=== PATIENT | male | born 1935 | race Caucasian/White ===

== ENCOUNTER 2016-08-10 07:00 | Inpatient (IN) | payer MEDICARE, MEDICAID ==
[~2016-08-10] VITALS: Ht 154.9 cm; Wt 63.0 kg
[~2016-08-10 07:00] MED LIST: ALLO100T PO; AMLO-147 PO; ASPI81TA3 PO; CARV6.2579 PO; CLOP75TA27 PO; FOLI-49 PO; FURO40TA4 PO; LANT3I SC; LEVO88TA3 PO; LISI20TA11 PO; MELA5TAB4 PO; MTF1000T PO; POTA8CAP PO; SIMV40TA2 PO; TRAM-40 PO
[2016-08-10] MEDS ORDERED: ASPIRIN 325 MG TAB PO STA (07:14)
[2016-08-10 07:53] LABS: ALBUMIN 4.7 g/dl (3.3-4.9)
[2016-08-10 07:54] LABS: POTASSIUM 4.9 mmol/L (3.5-5.1)
[2016-08-10 07:56] LABS: BILIRUBIN,INDIRECT 0.5 mg/dl (0-1.1); BILIRUBIN,TOTAL 0.5 mg/dl (0.2-1.3); CREATININE 1.14 mg/dl (0.61-1.24)
[2016-08-10 07:57] LABS: ALBUMIN/GLOBULIN RATIO 1.04; CALCIUM 9.6 mg/dl (8.4-10.2); TOTAL PROTEIN 9.2 g/dl (6.1-8.1)
[2016-08-10 08:00] LABS: BASOPHILS % 0.3 % (0.0-2.0); EOSINOPHILS # 0.1 10^3/ul (0.0-0.5); HEMATOCRIT 37.2 % (42.0-52.0); HEMOGLOBIN 12.5 g/dl (14.0-18.0); LYMPHOCYTES # 1.7 10^3/ul (0.8-2.9); LYMPHOCYTES % 14.9 % (15.0-51.0); MEAN CORPUSCULAR HEMOGLOBIN 27.3 pg (29.0-33.0); MEAN CORPUSCULAR HGB CONC 33.6 g/dl (32.0-37.0); MEAN CORPUSCULAR VOLUME 81.3 fl (82.0-101.0); MEAN PLATELET VOLUME 10.2 fl (7.4-10.4); MONOCYTE # 0.2 10^3/ul (0.3-0.9); MONOCYTES % 1.9 % (0.0-11.0); NEUTROPHIL # 9.2 10^3/ul (1.6-7.5); NEUTROPHILS % 81.9 % (39.0-77.0); PLATELET COUNT 235 10^3/UL (140-440); RED BLOOD COUNT 4.57 10^6/ul (4.70-6.10); RED CELL DISTRIBUTION WIDTH 18.4 % (11.5-14.5); UNCORRECTED WBC 11.3 10^3/ul (4.8-10.8); WHITE BLOOD COUNT 11.3 10^3/ul (4.8-10.8)
[2016-08-10 08:00] LABS: AADO2 Arterial 181.6 mmHg (7.0-24.0); Allen Test ACCEPTAB; Arterial Base Excess -3.5 mmol/L (-3.0-3); Arterial COHb 0 % (0.0-3.0); Arterial Fraction of Oxyhgb 91.2 % (93.0-99.0); Arterial HCO3 20.5 mmol/L (22.0-26.0); Arterial MetHb 0.5 % (0.0-1.5); Arterial Total Hemglobin 11.3 g/dl (12.0-18.0); Blood Gas IEPAP 15/5; Blood Gas PS 10; MODE MASK - BIPAP
[2016-08-10 08:02] LABS: CONDITION 1; LH ANALYZER COMMENTS 1
[2016-08-10 08:07] LABS: CK-MB 0.93 ng/ml (0.0-2.4)
[2016-08-10 08:09] LABS: TROPONIN-I 0.014 ng/ml (0.00-0.12)
[2016-08-10] MEDS ORDERED: FUROSEMIDE 40 MG INJ IV ONE (08:30)
--- NOTE | 2016-08-10 08:37 | RADRPT ---
PROCEDURE: CHEST 1VW CLINICAL INDICATION: Chest pain TECHNIQUE: Single frontal view of the chest was obtained COMPARISON: 05/27/2016 FINDINGS: The cardiac size is mildly enlarged, stable. Aortic vascular calcifications are demonstrated. There is mild pulmonary vascular congestion. Mild right basilar opacities again demonstrated, possibly atelectasis or aspiration. Mild degenerative changes of the visualized osseous structures are visualized. IMPRESSION: 1. Mild right basilar opacities again demonstrated, possibly atelectasis or aspiration. 2. Atherosclerosis. RPTAT:PP .Monroe Cheng MD, Date Time Electronically viewed and signed by .Monroe Cheng MD, on 08/10/2016 08:37 .V/
--- NOTE | 2016-08-10 08:52 | ERA ---
ER Documentation Chief Complaint Date/Time DATE: 08/10/16 TIME: 08:47 Chief Complaint sudden onset sob since this morning withmild cp and cough and congestion HPI 81-year-old male who presents to the emergency room complaining of shortness of breath. The patient describes shortness of breath and mild chest pressure that started this morning. The patient has a severe aortic stenosis. The patient is being scheduled for percutaneous valve replacement. The patient describes shortness of breath, PND, orthopnea. He denies any current chest pressure. No significant lower extremity swelling. He states compliance with his medications. ROS All systems reviewed and are negative except as per history of present illness. Medications Home Meds Active Scripts Carvedilol* (Carvedilol*) 6.25 Mg Tablet, 6.25 MG PO BID, #90 TAB 1 Refill Prov:DEIRDRE BERNARD 05/30/16 Furosemide* (Furosemide*) 40 Mg Tablet, 40 MG PO BID DIURETICS, #90 TAB 1 Refill Prov:DEIRDRE BERNARD 05/30/16 Insulin Glargine* (Lantus*) 100 Unit/Ml Soln, 10 UNIT SC QPM, #1 Prov:DEVYN FELIPE MD 05/17/16 Reported Medications Amlodipine Besylate* (Amlodipine Besylate*) 10 Mg Tablet, 10 MG PO DAILY, #30 TAB 05/27/16 Melatonin (Melatonin) 5 Mg Tablet, 5 MG PO HS, TAB 05/27/16 Folic Acid* (Folic Acid*) 1 Mg Tablet, 1 MG PO DAILY, TAB 05/27/16 Simvastatin* (Zocor*) 40 Mg Tablet, 40 MG PO QHS, #30 TAB 05/27/16 Aspirin* (Aspirin* Chew) 81 Mg Tab.chew, 81 MG PO DAILY, TAB.CHEW 05/27/16 Metformin* (Glucophage*) 1,000 Mg Tablet, 1000 MG PO BID, #60 TAB 05/06/16 Allopurinol* (Allopurinol*) 100 Mg Tablet, 100 MG PO DAILY, TAB 05/06/16 Lisinopril* (Lisinopril*) 20 Mg Tablet, 20 MG PO DAILY, #30 TAB 05/06/16 Clopidogrel Bisulfate (Clopidogrel) 75 Mg Tablet, 75 MG PO DAILY, #30 TAB 05/06/16 Potassium Chloride* (Potassium Chloride*) 8 Meq Capsule.er, 8 MEQ PO DAILY, CAP 05/06/16 Tramadol Hcl* (Ultram*) 50 Mg Tablet, 50 MG PO Q12 Y for PAIN, TAB 05/06/16 Levothyroxine Sodium* (Levothyroxine Sodium*) 88 Mcg Tablet, 88 MCG PO BEFORE BREAKFAST, #30 TAB 05/06/16 Allergies Allergies: Coded Allergies: No Known Allergies (Verified Allergy, Unknown, 08/10/16) PMhx/Soc History of Surgery: Yes (Appendectomy 195, Angio plastydone with Dr Flores) Anesthesia Reaction: No Hx Neurological Disorder: No Hx Respiratory Disorders: No Hx Cardiac Disorders: Yes (HTN, CHF,dm) Hx Psychiatric Problems: No Hx Miscellaneous Medical Probl: No Hx Alcohol Use: No Hx Substance Use: No Hx Tobacco Use: No Smoking Status: Never smoker FmHx Family History: No diabetes Physical Exam Vitals Vital Signs Date Time Temp Pulse Resp B/P Pulse Ox O2 Delivery O2 Flow Rate FiO2 08/10/16 09:39 78 97 50 08/10/16 09:04 74 18 133/69 99 Room Air BIPAP 08/10/16 07:43 106 96 30 08/10/16 07:34 82 20 141/72 94 Room Air 08/10/16 07:03 98.1 97 28 156/74 88 Physical Exam General: Mild respiratory distress Head: Normocephalic, atraumatic. Eyes: Pupils equally reactive, EOM intact ENT: Moist mucous membranes Neck: Supple, no lymphadenopathy Respiratory: Rales at the bases bilaterally and diffusely, increased work of breathing, talking in shortened sentences Cardiovascular: RRR, no murmurs, rubs, or gallops Abdominal: Soft, non-tender, non-distended, no peritoneal signs : Deferred MSK: No edema, no unilateral swelling, 5/5 strength Neurologic: Alert and oriented, moving all extremities, normal speech, no focal weakness, no cerebellar signs Skin: No rash Psych: Normal mood Result Diagram: 08/10/16 0720 08/10/16 0720 Results 24 hrs Laboratory Tests Test 08/10/16 07:14 08/10/16 07:20 Arterial Blood HCO3 20.5mmol/L Arterial Blood Base Excess -3.5mmol/L Arterial Blood Oxygen Saturation 91.7mmHG Conrad Test ACCEPTAB Arterial Blood Gas Puncture Site Right Radial Arterial Blood Carboxyhemoglobin 0% Arterial Blood Date Drawn 08/10/2016 7:45:34 AM Arterial Blood Methemoglobin 0.5% Arterial Blood pCO2 (Temp correct) 33.7mmhg Arterial Blood pH (Temp corrected) 7.403 Arterial Blood pO2 (Temp corrected) 64.8mmHG Blood Gas A-a O2 Differential 181.6mmHg Blood Gas Actual Respiration Rate 32 Blood Gas IPAP/EPAP Ratio 15/5 Blood Gas Modality MASK - BIPAP Blood Gas Notified Time 08/10/2016 8:00:14 AM Blood Gas Notified Whom RT Blood Gas Pressure Support 10 Blood Gas Respiration Rate 16.0 Blood Gas Specimen Source Blood arterial Blood Gas Temperature 37.0C FiO2 40.0% Oxyhemoglobin Percent 91.2% Total Hemoglobin 11.3g/dl Alanine Aminotransferase (ALT/SGPT) 24IU/L Albumin 4.7g/dl Albumin/Globulin Ratio 1.04 Alkaline Phosphatase 85IU/L Anion Gap 23 Aspartate Amino Transf (AST/SGOT) 51IU/L B-Type Natriuretic Peptide 3070PG/ML Basophils # 0.010^3/ul Basophils % 0.3% Blood Morphology Comment Blood Urea Nitrogen 20mg/dl Calcium Level 9.6mg/dl Carbon Dioxide Level 22mmol/L Chloride Level 107mmol/L Creatine Kinase 53IU/L Creatine Kinase Index 1.8 Creatinine 1.14mg/dl Creatinine Kinase MB (Mass) 0.93ng/ml Direct Bilirubin 0.00mg/dl Eosinophils # 0.110^3/ul Eosinophils % 1.0% Globulin 4.50g/dl Glucose Level 168mg/dl Hematocrit 37.2% Hemoglobin 12.5g/dl Indirect Bilirubin 0.5mg/dl Lymphocytes # 1.710^3/ul Lymphocytes % 14.9% Mean Corpuscular Hemoglobin 27.3pg Mean Corpuscular Hemoglobin Concent 33.6g/dl Mean Corpuscular Volume 81.3fl Mean Platelet Volume 10.2fl Monocytes # 0.210^3/ul Monocytes % 1.9% Neutrophils # 9.210^3/ul Neutrophils % 81.9% Nucleated Red Blood Cells # 0.010^3/ul Nucleated Red Blood Cells % 0.0/100WBC Platelet Count 93760^3/UL Potassium Level 4.9mmol/L Red Blood Count 4.5710^6/ul Red Cell Distribution Width 18.4% Sodium Level 147mmol/L Total Bilirubin 0.5mg/dl Total Protein 9.2g/dl Troponin I 0.014ng/ml White Blood Count 11.310^3/ul Current Medications Medications (Trade) Dose Ordered Sig/Leanna Route PRN Reason Start Time Stop Time Status Last Admin Dose Admin Aspirin (Aspirin) 325 mg ONCE STAT PO 08/10/16 07:14 08/10/16 07:18 DC 08/10/16 09:00 Furosemide (Lasix) 40 mg ONCE ONCE IV 08/10/16 08:30 08/10/16 08:31 DC 08/10/16 09:00 Ondansetron HCl (Zofran Inj) 4 mg ER BRIDGE PRN IV NAUSEA AND/OR VOMITING 08/10/16 10:30 08/11/16 10:29 Acetaminophen (Tylenol Tab) 650 mg ER BRIDGE PRN PO MILD PAIN/FEVER 08/10/16 10:30 08/11/16 10:29 Procedures/MDM EKG, MONITORS, & DIAGNOSTIC IMAGING: EKG: I reviewed and interpreted a 12-lead EKG. Rhythm: Normal sinus rhythm Ectopy: None Intervals: No abnormalities ST segments: No elevations or depressions T waves: No contiguous inversions Chest x-ray: I reviewed and interpreted a 1 view of the chest Mediastinum: No enlargement Cardiac silhouette: cardiomegaly Airspace: Interstitial process bilaterally right greater than left with evidence of right-sided pleural effusion, pulmonary edema. Bones: No evidence of fracture LAB INTERPRETATION: Negative troponin, elevated BNP MEDICAL DECISION MAKING: The patient presents with clear signs and symptoms consistent with decompensated congestive heart failure. The patient has a history of severe left ear. He has no fevers or chills, no significant cough that would suggest pneumonia or aspiration event. The patient did have chest pain will benefit from evaluation and rule out of acute coronary syndrome. The patient has evidence of respiratory distress and increased work of breathing. I believe he would benefit from positive pressure ventilation. Given the patient's severe aortic stenosis I would like to avoid nitroglycerin given that the patient's blood pressure is somewhat stable at 140. Gentle Lasix will be provided. The patient is likely very preload dependent given his severe aortic stenosis. ER COURSE: The patient was started on positive pressure ventilation. In concordance with Dr. Flores consultation the patient was given Lasix. He did not require nitroglycerin. The patient was given aspirin. The patient seems to have stabilized on positive pressure ventilation. The patient will require ICU level of care until he can be weaned from BiPAP. I kept the patient and/or family informed of laboratory and diagnostic imaging results throughout the emergency room course. DISPOSITION PLAN: Intensive care unit management for acute respiratory failure secondary to CHF CONSULTATION: Accepting care team and consultations: I discussed the current laboratory data, diagnostic imaging and emergency care provided. Admitting team: Dr. 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 Flores was notified Prior to transfer to the floor the patient has discontinued positive pressure ventilation. He is resting comfortably and improved. Departure Diagnosis: Primary Impression: Acute respiratory failure Qualified Code: J96.00 - Acute respiratory failure, unspecified whether with hypoxia or hypercapnia Additional Impressions: Acute exacerbation of CHF (congestive heart failure) Qualified Code: I50.23 - Acute on chronic systolic congestive heart failure Severe aortic stenosis Condition: DEXTER Harding MD Aug 10, 2016 08:52
[2016-08-10] MEDS ORDERED: ONDANSETRON 4 MG INJ IV PRN (10:30)
[2016-08-10] MEDS ORDERED: ACETAMINOPHEN 325 MG TAB PO PRN (10:30)
[2016-08-10] MEDS ORDERED: DOCUSATE SODIUM 100 MG CAP PO PRN (12:30)
[2016-08-10] MEDS ORDERED: ONDANSETRON 4 MG TAB PO PRN (12:30)
[2016-08-10] MEDS ORDERED: NITROGLYCERIN (SL) 0.4 MG TAB SL PRN (12:30)
[2016-08-10] MEDS ORDERED: LORAZEPAM 0.5 MG TAB PO PRN (12:30)
[2016-08-10] MEDS ORDERED: NACL 0.9% 3 ML SYG IV SCH (12:30)
[2016-08-10 12:55] LABS: INR 1.03; PARTIAL THROMBOPLASTIN TIME 27.6 Sec (25.0-35.0); PROTIME 13.5 Sec (12.2-14.2); PT RATIO 1.1
[2016-08-10] MEDS ORDERED: GLUCAGON 1 MG INJ IM PRN (13:00)
[2016-08-10] MEDS ORDERED: DEXTROSE 50% 50 ML SYRINGE IV PRN ×2 (13:00)
[2016-08-10] MEDS ORDERED: GLUCOSE GEL 15 GRAM TUBE BUCCAL PRN (13:00)
[2016-08-10] MEDS ORDERED: GLUCOSE GEL 15 GRAM TUBE PO PRN ×2 (13:00)
[2016-08-10 15:55] VITALS: TEMP 97.7
[2016-08-10 16:57] VITALS: Ht 154.9 cm; Wt 63.0 kg
[2016-08-10 16:59] VITALS: PULSE 81
[2016-08-10 17:01] VITALS: BP 150/77; PULSE 86; RESP 18
--- NOTE | 2016-08-10 17:15 | CONS ---
DATE OF ADMISSION: 08/10/2016 DATE OF CONSULTATION: 08/10/2016 TYPE OF CONSULTATION: Cardiology. REASON FOR CONSULTATION: Congestive heart failure exacerbation. REQUESTING PHYSICIAN: Dr. Felipe from the hospitalist service. HISTORY OF PRESENT ILLNESS: Mr. Adams is an 81-year-old male well known to myself, a primary offi ce patient from prior hospital admissions with history of congestive heart failure, systolic with la st known ejection fraction approximately 35% by echo in April 2016. Severe aortic stenosis by ec ho and by the catheter gradient April 2016. Status post PTCA and stent placement, most recently to LAD, left main April 2016, diabetes mellitus and prior non-ST myocardial infarction, who prese nts with complaints of worsening shortness of breath. Upon arrival in the emergency department, tem perature of 98.1, blood pressure 156/74, pulse 97, respiratory 20, saturating 80%. The patient's la bs revealed white count 11.3, hemoglobin 12.5, platelet count 235. Sodium 147, potassium 4.9, creat inine of 1.1, BUN of 20. Troponin negative. BNP of 3070, AST 51, ALT 24. INR of 1.0. ABG reveali ng a pH of 7.4, PaO2 of 64, pCO2 of 33.7. Patient's chest x-ray revealed mild right basilar opacit ies, mild pulmonary vascular congestion. The patient subsequently has been treated with Lasix 40 mg IV x1, aspirin 325 mg and now awaits admit to the hospital. At this time, patient complaining of s hortness of breath. Denies chest pain. PAST MEDICAL HISTORY: As above in HPI. MEDICATIONS CURRENTLY IN HOSPITAL: 1. ____ 2. ____ 10 mg b.i.d. 3. Aspirin 81 mg daily. 4. Plavix 75 mg daily. 5. Folic acid 1 mg daily. 6. ____ 20 mg daily. 7. Lovenox 20 mg subcutaneous daily. 8. Synthroid 88 mcg daily. 9. Carvedilol 6.25 mg p.o. b.i.d. 10. Lantus 10 units subcu at bedtime. 11. Metformin 1000 mg b.i.d. 12. Lasix 20 mg IV b.i.d. 13. Ativan p.r.n. 14. Zofran p.r.n. 15. Sublingual nitroglycerin p.r.n. 16. Tylenol. ALLERGIES: NO KNOWN DRUG ALLERGIES. MEDICATIONS PRIOR TO ADMIT: 1. Norvasc 10 mg daily. 2. Carvedilol 6.25 mg daily. 3. ____ 4. Simvastatin 40 mg daily. 5. Aspirin 80 mg daily. 6. Tramadol. 7. Lasix 40 mg p.o. b.i.d. 8. Potassium chloride 8 mEq daily. 9. Insulin. 10. Synthroid 88 mcg. 11. Metformin 1000 mg b.i.d. 12. Folic acid 1 mg daily. 13. Allopurinol. 14. Melatonin 5 mg at bedtime. ALLERGIES: NO KNOWN DRUG ALLERGIES. SOCIAL HISTORY: No tobacco, ETOH or illicit drug use. FAMILY HISTORY: No history of sudden cardiac or early CAD. REVIEW OF SYSTEMS: As above in HPI. CONSTITUTIONAL: No fevers, chills. PULMONARY: Positive shortness breath. CARDIOVASCULAR: Congestive heart failure. GASTROINTESTINAL: No vomiting. GENITOURINARY: No hematuria. MUSCULOSKELETAL: Degenerative joint disease. PSYCHIATRIC: The patient denies depression. NEUROLOGICAL: No documented history of CVA. PHYSICAL EXAMINATION VITAL SIGNS: Temperature 97.8, blood pressure 126/65, pulse 82, respirations 16, saturating 99%. GENERAL: The patient is alert, awake, complaining of shortness of breath. NECK: JVP approximately 10 cm of water. CHEST: Bibasilar crackles. HEART: Regular rate and rhythm, normal S1, S2. Laterally displaced PMI. 2/6 crescendo decrescendo murmur radiating to carotids consistent with aortic stenosis. ABDOMEN: Positive bowel sounds, soft. EXTREMITIES: 1+ edema bilaterally, 1+ pulses bilaterally, posterior tibial. LABORATORY DATA: As above in HPI. No further labs for my review at this time. IMAGING STUDIES: As above in HPI. No further imaging studies for my review at this time. IMPRESSION: 1. Congestive heart failure exacerbation, systolic, acute on chronic, with most recent echo 2015 revealing EF of 35%, severe aortic stenosis, aortic valve area of 0.7, mean gradient of 41. 2. Hypertension. 3. Abnormal electrocardiogram, assess for acute coronary syndrome. 4. History of a percutaneous transluminal coronary angioplasty and stent placement, most recently t o left main drug-eluting stent April 2016. 5. Dyslipidemia. 6. Diabetes mellitus. 7. Hypernatremia 8. Increased BNP consistent with patient's congestive heart failure exacerbation. 9. Anemia, mild 10. Leukocytosis. RECOMMENDATIONS: 1. At this time, would admit patient to telemetry monitoring to follow rhythm and rate control clos aria. 2. Would continue to trend the patient's cardiac enzymes to rule out for myocardial infarction. 3. Continue the patient's current antihypertensives with Coreg, Zestril and Norvasc following blood pressure and heart rate closely. 4. Give patient sublingual nitroglycerin for any episodes of chest pain. 5. Continue the patient's Lasix diuresis. We will change to 40 IV b.i.d., as the patient's baselin e is 40 p.o. b.i.d. to be sure to stimulate good urine output and follow creatinine closely. 6. Continue to check serial EKGs to assess for any significant ongoing changes. EKG in the morning , EKG for any complaints of chest pain or change in rhythm. 7. Check a fasting lipid panel for general risk stratification. Thank you for allowing me to take part in the care of this patient. I will continue to follow along very closely with you with further recommendations to be made as the patient progresses through his inpatient hospital clinical course. Dictated By: ELEANOR ABREU/ELIZABETH Conf#: [id number] DID#: [id number] CC: DEVYN FELIPE MD;*EndCC*
[2016-08-10] MEDS: INSULIN ASPART [NOVOLOG] 3 ML PEN SC SCH ×2 (17:55→20:30)
[2016-08-10] MEDS: FUROSEMIDE 20 MG INJ IV SCH (18:00)
[2016-08-10] MEDS ORDERED: FUROSEMIDE 20 MG INJ IV SCH (18:00)
[2016-08-10] MEDS: CEFTRIAXONE 1 GM/50 ML (PMX) 50 ML IVPB SCH (18:01)
--- NOTE | 2016-08-10 18:01 | HP ---
DATE OF ADMISSION: 08/10/2016 REASON FOR ADMISSION: Shortness of breath. HISTORY OF PRESENT ILLNESS: This is a very pleasant 81-year-old gentleman who is known to me from h is prior admission with a past medical history of ID, multiple vessel obstructive coronary artery di sease 100% occluded thrombus, high-grade lesion in the small posterior descending artery, status pos t PCI, recent pneumonia, essential hypertension, dyslipidemia, diabetes mellitus, gout, small irregu lar nodule in the right upper lobe centrally measuring 0.9 x 0.5 cm, severe left ventricle systolic dysfunction, ejection fraction at 35%, severe aortic stenosis, who is scheduled for intervention at [facility] on 08/18/2016, renal insufficiency, who presents to [facility] secondary to h aving 2 days of shortness of breath and difficulty ambulating secondary to shortness of breath. The patient is also having mild chest pressure which started this morning. As stated above, he has a h istory of severe aortic stenosis and has been seen and evaluated by Cardiology as outpatient and he has been scheduled for percutaneous valve replacement at [facility] 08/18/2016. He also complains of havi ng shortness of breath, paroxysmal nocturnal dyspnea, orthopnea. At this time he denies having any lower extremity edema or any other discomfort. He denies any fever, chills, weight gain, weight los s, anorexia. No chest pain, palpitations, orthopnea. No change in visual acuity, diplopia, photoph obia. No abdominal pain, no nausea, vomiting. No dysuria, hematuria, urgency, incontinence or any other discomfort except what was stated above. PAST MEDICAL AND SURGICAL HISTORY: As above per HPI. MEDICATIONS: 1. Allopurinol. 2. Amlodipine. 3. Aspirin. 4. Coreg. 5. Plavix. 6. Folic acid. 7. Lasix. 8. Lantus. 9. Levothyroxine. 10. Lisinopril. 11. Melatonin. 12. Metformin. 13. Potassium chloride. 14. Simvastatin 15. Tramadol. ALLERGIES: NO KNOWN DRUG ALLERGIES. SOCIAL HISTORY: Positive for history of smoking, no alcohol, no illicit drugs. FAMILY HISTORY: Noncontributory secondary to advanced age. REVIEW OF SYSTEMS: As above per HPI, otherwise 12 review of systems has been found to be negative. PHYSICAL EXAMINATION: VITAL SIGNS: Temperature 97.7, pulse 87, respirations 17, blood pressure 126/65, oxygen saturation 99% on 2 liters via nasal cannula. GENERAL APPEARANCE: The patient is lying in bed comfortably without any acute distress. He is awak e, alert, oriented. He is able to answer my questions properly. EYES AND ENT: Conjunctivae and lids are normal. Pupils are normal. Extraocular normal. Hearing g rossly normal. Lips are normal. Oral mucosa mildly dry. NECK: Supple. Trachea is midline. No lymphadenopathy. RESPIRATORY: Effort is normal. Clear to auscultation bilaterally. RESPIRATORY: Effort is normal. Decreased breath sounds bilateral lower lung choudhary with positive r ales bilateral lower lung choudhary. CARDIOVASCULAR: Normal S1, S2. Regular rhythm and rate. Positive systolic murmur at the apex, tra ce edema bilateral lower extremities. NEUROLOGIC: Cranial nerves II through XII are grossly intact. CHEST: Normal expansion of thorax during inspiration. GASTROINTESTINAL: Abdomen is soft, nontender, not distended. Bowel sounds present. No guarding, n o rebound. GENITOURINARY: Deferred. MUSCULOSKELETAL: Upper and lower extremities within normal limits with trace edema bilateral lower extremities. NEUROLOGICAL: Cranial nerves II through XII are grossly intact. PSYCHIATRIC: Normal judgment and insight. Alert and oriented x3. Mood and affect is normal. LABORATORY WORK AND IMAGING: WBC 11.3, hemoglobin 12.5, hematocrit 37.2, MCV 81.3, platelet 235. S odium 147, potassium 4.9, chloride 107, bicarbonate 22, BUN 20, creatinine 1.14, glucose 168. LFTs all within normal limits. Troponin 0.014. BNP 3070. ASSESSMENT AND PLAN: 1. Acute respiratory distress. This is likely secondary to congestive heart failure and severe aor tic stenosis. Cardiology has been consulted. Patient will be placed on diuretics. 2. Congestive heart failure exacerbation. Last echocardiogram with ejection fraction 25%. Continu e lisinopril and Lasix. 3. Essential hypertension, well controlled on Coreg, Lasix and lisinopril. 4. Hypothyroidism. Continue levothyroxine. 5. Diabetes mellitus. Continue Lantus insulin sliding scale and metformin. 6. Dyslipidemia. Continue Zocor. 7. History of myocardial infarction/coronary artery disease. Continue aggressive medical managemen t. 8. For deep venous thrombosis prophylaxis, the patient is on Plavix and aspirin. 9. Questionable pneumonia, we will place the patient on prophylaxis, Rocephin. We will continue to monitor patient closely. Further recommendations, management and treatment as per clinical course. Total amount of time was spent for evaluation of patient and admission workup 40 minutes. Dictated By: DEVYN OBANDO/NTS Conf#: [id number] DID#: [id number]
[2016-08-10] MEDS: metFORMIN 500 MG TAB PO SCH (18:02)
[2016-08-10] MEDS: FUROSEMIDE 40 MG TAB PO SCH (18:02)
[2016-08-10 18:10] LABS: CREATINE KINASE 27 IU/L (23-200)
[2016-08-10 18:18] LABS: CK-MB 0.68 ng/ml (0.0-2.4)
[2016-08-10 18:28] LABS: TROPONIN-I < 0.012 ng/ml (0.00-0.12)
[2016-08-10 20:00] VITALS: BP 139/64; RESP 18
[2016-08-10 20:07] VITALS: PULSE 88
[2016-08-10] MEDS: ATORVASTATIN 20 MG TAB PO SCH (20:26)
[2016-08-10] MEDS ORDERED: NON-FORMULARY/PATIENT OWN MED (Melatonin 5 MG) PO SCH (21:00)
[2016-08-10] MEDS: INSULIN GLARGINE [LANtus] 3 ML PEN SC SCH (22:18)
[2016-08-11] VITALS (11 sets, daily range): BP systolic 125–144; BP diastolic 60–77; PULSE 73–80; RESP 17–18
[2016-08-11 00:36] LABS: CREATINE KINASE 26 IU/L (23-200)
[2016-08-11 00:51] LABS: CK-MB 0.56 ng/ml (0.0-2.4)
[2016-08-11 01:05] LABS: TROPONIN-I < 0.012 ng/ml (0.00-0.12)
[2016-08-11] MEDS: FUROSEMIDE 40 MG TAB PO SCH ×2 (06:00→18:00)
[2016-08-11] MEDS: LEVOTHYROXINE 88 MCG TAB PO SCH (06:13)
[2016-08-11] MEDS: FUROSEMIDE 20 MG INJ IV SCH ×2 (06:13→17:34)
[2016-08-11 07:44] LABS: CREATINE KINASE 28 IU/L (23-200)
[2016-08-11 07:54] LABS: TROPONIN-I < 0.012 ng/ml (0.00-0.12)
[2016-08-11] MEDS: INSULIN ASPART [NOVOLOG] 3 ML PEN SC SCH ×4 (07:55→20:32)
[2016-08-11 07:57] LABS: CK-MB 0.65 ng/ml (0.0-2.4)
[2016-08-11 08:04] LABS: POTASSIUM 3.4 mmol/L (3.5-5.1)
[2016-08-11 08:07] LABS: CREATININE 1.17 mg/dl (0.61-1.24)
[2016-08-11 08:08] LABS: CALCIUM 9.3 mg/dl (8.4-10.2); MAGNESIUM 1.8 mg/dl (1.7-2.5)
[2016-08-11] MEDS: FOLIC ACID 1 MG TAB PO SCH (08:20)
[2016-08-11] MEDS: AMLODIPINE 10 MG TAB PO SCH (08:20)
[2016-08-11] MEDS: ASPIRIN 81 MG TAB PO SCH (08:20)
[2016-08-11] MEDS: ALLOPURINOL 100 MG TAB PO SCH (08:21)
[2016-08-11] MEDS: LISINOPRIL 20 MG TAB PO SCH (08:21)
[2016-08-11] MEDS: CLOPIDOGREL 75 MG TAB PO SCH (08:21)
[2016-08-11] MEDS: ENOXAPARIN 40 MG/0.4 ML SYG SC SCH (08:22)
[2016-08-11] MEDS: metFORMIN 500 MG TAB PO SCH ×2 (08:24→17:20)
[2016-08-11 08:48] LABS: BASOPHILS % 0.3 % (0.0-2.0); EOSINOPHILS # 0.1 10^3/ul (0.0-0.5); EOSINOPHILS % 1.3 % (0.0-7.0); HEMATOCRIT 31.1 % (42.0-52.0); HEMOGLOBIN 10.2 g/dl (14.0-18.0); LYMPHOCYTES % 40.6 % (15.0-51.0); MEAN CORPUSCULAR HEMOGLOBIN 26.6 pg (29.0-33.0); MEAN CORPUSCULAR VOLUME 80.8 fl (82.0-101.0); MEAN PLATELET VOLUME 10.1 fl (7.4-10.4); MONOCYTE # 0.4 10^3/ul (0.3-0.9); MONOCYTES % 7.9 % (0.0-11.0); NEUTROPHIL # 2.4 10^3/ul (1.6-7.5); NEUTROPHILS % 49.9 % (39.0-77.0); PLATELET COUNT 159 10^3/UL (140-440); RED BLOOD COUNT 3.85 10^6/ul (4.70-6.10); RED CELL DISTRIBUTION WIDTH 18.8 % (11.5-14.5); UNCORRECTED WBC 4.9 10^3/ul (4.8-10.8); WHITE BLOOD COUNT 4.9 10^3/ul (4.8-10.8)
[2016-08-11 08:57] LABS: CONDITION 1; LH ANALYZER COMMENTS 1
--- NOTE | 2016-08-11 12:07 | PDOCDIS ---
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
[2016-08-11] MEDS: POTASSIUM CHLORIDE (SR) 20 MEQ TAB PO SCH (12:32)
--- NOTE | 2016-08-11 13:45 | CONS ---
Date/Time of Note Date/Time of Note DATE: 08/11/16 TIME: 13:41 Assessment/Plan Assessment/Plan Chief Complaint/Hosp Course IMPRESSION: 1. Congestive heart failure exacerbation, systolic, acute on chronic, with most recent echo April 2016 revealing EF of 35%, severe aortic stenosis, aortic valve area of 0.7, mean gradient of 41.-improving 2. Hypertension. 3. Abnormal electrocardiogram, assess for acute coronary syndrome.-negative troponin x 3 4. History of a percutaneous transluminal coronary angioplasty and stent placement, most recently to left main drug-eluting stent April 2016. 5. Dyslipidemia. 6. Diabetes mellitus. 7. Hypernatremia 8. Increased BNP consistent with patient's congestive heart failure exacerbation. 9. Anemia, mild 10. Leukocytosis. Recc: -Tele -serial ecg's -Continue asa/plavix -Contiue norvasc/coreg/zestril -Contiue lasix diuresis and follow volume status closely Problems: Consultation Date/Type/Reason Admit Date/Time Aug 10, 2016 at 10:13 Initial Consult Date 08/10/2016 Type of Consultation: cardiology Reason for Consultation CHF Referring Provider: DEVYN FELIPE MD Exam/Review of Systems Vital Signs Vitals Vital Signs Date Time Temp Pulse Resp B/P Pulse Ox O2 Delivery O2 Flow Rate FiO2 08/11/16 12:30 98.0 18 140/77 98 08/11/16 12:27 Room Air 08/11/16 12:13 73 08/10/16 20:25 3.0 08/10/16 09:39 50 Intake and Output 08/10/16 08/10/16 08/11/16 15:00 23:00 07:00 Intake Total 250 ml Output Total 600 ml 1650 ml Balance -600 ml -1400 ml Exam Review of Systems: CONSTITUTIONAL: No fevers, chills. PULMONARY: No sob CARDIOVASCULAR: No chest pain/palpitations GASTROINTESTINAL: No nausea/vomiting. GENITOURINARY: No hematuria/dysuria. MUSCULOSKELETAL: No myagias/arthalgias. PSYCHIATRIC: The patient denies depression. NEUROLOGIC: No weakness Constitutional: alert, oriented Psych: no complaints Head: normocephalic ENMT: mucosa pink and moist Neck: jvd (9 cm water), supple Respiratory: diminished breath sounds (at bases/B) Cardiovascular: regular rate and rhythm Gastrointestinal: non-tender, soft Musculoskeletal: muscle tone (normal) Extremities: edema (none) Neurological: other (No focal deficits) Results Result Diagram: 08/11/16 0710 08/11/16 0710 Results 24 hrs Laboratory Tests Test 08/10/16 17:19 08/10/16 17:20 08/10/16 20:29 08/10/16 23:28 Bedside Glucose 170 124 Creatine Kinase 27 26 Creatine Kinase Index 2.5 2.2 Creatinine Kinase MB (Mass) 0.68 0.56 Troponin I < 0.012 < 0.012 Test 08/11/16 07:10 08/11/16 07:45 08/11/16 11:42 Anion Gap 16 # Basophils # 0.0 Basophils % 0.3 Blood Morphology Comment Blood Urea Nitrogen 17 Calcium Level 9.3 Carbon Dioxide Level 26 Chloride Level 106 Cholesterol Level 150 Cholesterol/HDL Ratio 3.0 Creatine Kinase 28 Creatine Kinase Index 2.3 Creatinine 1.17 Creatinine Kinase MB (Mass) 0.65 Eosinophils # 0.1 Eosinophils % 1.3 Glucose Level 136 HDL Cholesterol 49 Hematocrit 31.1 L Hemoglobin 10.2 L LDL Cholesterol, Calculated 82 Lymphocytes # 2.0 Lymphocytes % 40.6 Magnesium Level 1.8 Mean Corpuscular Hemoglobin 26.6 L Mean Corpuscular Hemoglobin Concent 33.0 Mean Corpuscular Volume 80.8 L Mean Platelet Volume 10.1 Monocytes # 0.4 Monocytes % 7.9 Neutrophils # 2.4 Neutrophils % 49.9 Nucleated Red Blood Cells # 0.0 Nucleated Red Blood Cells % 0.0 Platelet Count 159 # Potassium Level 3.4 L Red Blood Count 3.85 L Red Cell Distribution Width 18.8 H Sodium Level 145 H Triglycerides Level 94 Troponin I < 0.012 White Blood Count 4.9 # Bedside Glucose 138 117 Medications Medications Current Medications Allopurinol (Zyloprim) 100 mg DAILY PO Last administered on 08/11/16 08:21; Admin Dose 100 MG; Start 08/11/16 at 09:00 Amlodipine Besylate (Norvasc) 10 mg DAILY PO Last administered on 08/11/16 08: 20; Admin Dose 10 MG; Start 08/11/16 at 09:00 Aspirin (Aspirin) 81 mg DAILY PO Last administered on 08/11/16 08:20; Admin Dose 81 MG; Start 08/11/16 at 09:00 Carvedilol (Coreg) 6.25 mg BID PO Last administered on 08/11/16 08:21; Admin Dose 6.25 MG; Start 08/10/16 at 21:00 Clopidogrel Bisulfate (plaVIX) 75 mg DAILY PO Last administered on 08/11/16 08 :21; Admin Dose 75 MG; Start 08/11/16 at 09:00 Folic Acid (Folic Acid) 1 mg DAILY PO Last administered on 08/11/16 08:20; Admin Dose 1 MG; Start 08/11/16 at 09:00 Insulin Glargine (Lantus) 10 unit QPM SC ; Start 08/10/16 at 21:00 Lisinopril (Zestril) 20 mg DAILY PO Last administered on 08/11/16 08:21; Admin Dose 20 MG; Start 08/11/16 at 09:00 Atorvastatin Calcium (Lipitor) 20 mg DAILY@21 PO Last administered on 20:26; Admin Dose 20 MG; Start 08/10/16 at 21:00 Lorazepam (Ativan) 0.5 mg Q8H PRN PO ANXIETY; Start 08/10/16 at 12:30 Ondansetron HCl (Zofran Tab) 4 mg Q6H PRN PO NAUSEA AND/OR VOMITING; Start at 12:30 Nitroglycerin (Nitroglycerin (Sl Tab) 0.4 Mg) 1 tab Q5M PRN SL CHEST PAIN; Start 08/10/16 at 12:30 Docusate Sodium (Colace) 100 mg Q12H PRN PO CONSTIPATION; Start 08/10/16 at 12: 30 Enoxaparin Sodium (Lovenox) 40 mg DAILY SC Last administered on 08/11/16 08:22 ; Admin Dose 40 MG; Start 08/11/16 at 09:00 Miscellaneous Information 1 ea NOTE XX ; Start 08/10/16 at 13:00 Glucose (Glutose) 15 gm Q15M PRN PO DECREASED GLUCOSE; Start 08/10/16 at 13:00 Glucose (Glutose) 22.5 gm Q15M PRN PO DECREASED GLUCOSE; Start 08/10/16 at 13: 00 Dextrose (D50w Syringe) 25 ml Q15M PRN IV DECREASED GLUCOSE; Start 08/10/16 at 13:00 Dextrose (D50w Syringe) 50 ml Q15M PRN IV DECREASED GLUCOSE; Start 08/10/16 at 13:00 Glucagon (Glucagen) 1 mg Q15M PRN IM DECREASED GLUCOSE; Start 08/10/16 at 13:00 Glucose 15 gm 15 gm Q15M PRN BUCCAL DECREASED GLUCOSE; Start 08/10/16 at 13:00 Ceftriaxone Sodium (Rocephin) 50 ml @ 100 mls/hr Q24H IVPB Last administered on 08/10/16 18:01; Admin Dose 100 MLS/HR; Start 08/10/16 at 17:00 Potassium Chloride (Klor-Con 20) 40 meq DAILY PO Last administered on 12:32; Admin Dose 40 MEQ; Start 08/11/16 at 12:00 ELEANOR ROLDAN Aug 11, 2016 13:45
--- NOTE | 2016-08-11 16:00 | RADRPT ---
Vent Rate: 71 bpm RR Interval: 0 msec FL Interval: 176 msec QRS Duration: 120 msec QT Interval: 416 msec QTC Interval: 452 msec P-R-T Stella: 55 - 52 - 144 degrees Sinus rhythm with occasional premature ventricular complexes Left ventricular hypertrophy with QRS widening and repolarization abnormality Abnormal ECG Electronically Signed By: Blake Patel [id number]
--- NOTE | 2016-08-11 16:20 | DS ---
DATE OF ADMISSION: 08/10/2016 DATE OF DISCHARGE: 08/11/2016 CONSULTANTS: Dr. Roldan, valuation consultant. DISCHARGE DIAGNOSES: 1. Acute respiratory distress likely secondary to congestive heart failure with severe aortic steno sis. Cardiology was consulted. The patient was placed on diuresis. The patient is set up to be fo llowed up with interventional radiology at [facility] for valvuloplasty. 2. Congestive heart failure exacerbation with the last echocardiogram showing ejection fraction of 25%. Continue lisinopril and Lasix. 3. Essential hypertension, well controlled on Coreg, Lasix and lisinopril. 4. Hypothyroidism. Continue levothyroxine. 5. Diabetes mellitus. Continue metformin and low-carbohydrate diet. 6. Dyslipidemia. Continue Zocor. 7. History of myocardial infarction and coronary artery disease. Continue aggressive medical manag ement. 8. Hypokalemia, repleted. MEDICATIONS: 1. Allopurinol. 2. Amlodipine 10 mg. 3. Aspirin 81 mg. 4. Coreg 6.25 mg. 5. Plavix 75 mg. 6. Folic acid 1 mg. 7. Lasix 40 mg b.i.d. 8. Lantus 10 units. 9. Levothyroxine 88 mcg. 10. Lisinopril 20 mg. 11. Melatonin 5 mg. 12. Metformin 1000 mg 13. Potassium chloride 8 mEq. 14. Simvastatin 40 mg. 15. Ultram 50 mg. ALLERGIES: NO KNOWN DRUG ALLERGIES. DISPOSITION: Home. DIET: Cardiac diet, restrict fluid to less than 1500 mL per day. HOSPITAL COURSE: This is a pleasant 81-year-old gentleman who was known to me from his prior hospit alization with a past medical history of myocardial infarction, multivessel obstructive coronary art hiral disease, high-grade lesion in the small posterior descending artery, status post PCI, recent pne umonia, essential hypertension, dyslipidemia, diabetes mellitus, gout, small irregular nodule in the right upper lobe currently measuring 0.9 x 0.5 cm, severe left ventricle systolic dysfunction, ejec tion fraction 35%, severe aortic stenosis, who was scheduled for valvular intervention at [facility] on . He presented to [facility] having 2 days of shortness of breath with in creased severity during ambulation. Upon arrival to the ER, the patient's chest x-ray showed mild r ight basilar infiltrate, again demonstrated possible atelectasis or aspiration atherosclerosis. Th e patient was placed on IV diuretics, was seen and evaluated by valuation consultant and his home medication was continued. Regarding his hypertension, his blood pressure is well controlled on medical manag ement via Coreg, lisinopril and Lasix for coronary artery disease, was continued on Plavix and stati n. Diabetes mellitus, he was placed on insulin sliding scale, low carb diet and Lantus. For hypertension, was continued on levothyroxine. For congestive heart failure, the patient was continued on lisinopril, Lasix and beta bijal. At t his time, the patient is asymptomatic without any chest pain or shortness of breath. His oxygen sat uration in room air is 97% at this time. At this time, patient is medically stable to be discharged home after evaluation by cardiology and clearance by cardiology to follow up with cardiology at [facility] for further intervention as outpatient. Dictated By: DEVYN FELIPE MD PN/NTS Conf#: [id number] DID#: [id number] CC: ELEANOR ROLDAN MD;*EndCC*
[2016-08-11] MEDS: CEFTRIAXONE 1 GM/50 ML (PMX) 50 ML IVPB SCH (17:20)
[2016-08-11] MEDS: ATORVASTATIN 20 MG TAB PO SCH (20:31)
[2016-08-11] MEDS: LATANOPROST 0.005% 2.5 ML OPH BOTH EYES SCH (20:32)
[2016-08-11] MEDS: INSULIN GLARGINE [LANtus] 3 ML PEN SC SCH (20:34)
[2016-08-12] VITALS (15 sets, daily range): BP systolic 129–148; BP diastolic 58–74; PULSE 42–80; RESP 15–18
[2016-08-12] MEDS ORDERED: LACTULOSE ENEMA 1,000 ML BTL PR ONE (03:00)
[2016-08-12] MEDS: FUROSEMIDE 40 MG TAB PO SCH ×2 (05:31→17:57)
[2016-08-12] MEDS: LEVOTHYROXINE 88 MCG TAB PO SCH (06:28)
[2016-08-12] MEDS: FUROSEMIDE 20 MG INJ IV SCH (06:28)
[2016-08-12] MEDS: INSULIN ASPART [NOVOLOG] 3 ML PEN SC SCH ×4 (07:55→21:00)
[2016-08-12] MEDS: AMLODIPINE 10 MG TAB PO SCH (09:24)
[2016-08-12] MEDS: LISINOPRIL 20 MG TAB PO SCH (09:24)
[2016-08-12] MEDS: ASPIRIN 81 MG TAB PO SCH (09:25)
[2016-08-12] MEDS: ALLOPURINOL 100 MG TAB PO SCH (09:25)
[2016-08-12] MEDS: FOLIC ACID 1 MG TAB PO SCH (09:25)
[2016-08-12] MEDS: POTASSIUM CHLORIDE (SR) 20 MEQ TAB PO SCH (09:25)
[2016-08-12] MEDS: CLOPIDOGREL 75 MG TAB PO SCH (09:25)
[2016-08-12] MEDS: ENOXAPARIN 40 MG/0.4 ML SYG SC SCH (09:35)
--- NOTE | 2016-08-12 10:08 | PN ---
Date/Time of Note Date/Time of Note DATE: 08/12/16 TIME: 10:06 Assessment/Plan VTE Prophylaxis VTE Prophylaxis Intervention: LMWH Lines/Catheters IV [facility] Saline Lock Urinary Cath still in place: No Assessment/Plan Assessment/Plan 1. Acute respiratory distress likely secondary to congestive heart failure with severe aortic stenosis. Cardiology was consulted. The patient was placed on diuresis. The patient is set up to be followed up with interventional radiology at [facility] for valvuloplasty. 2. Congestive heart failure exacerbation with the last echocardiogram showing ejection fraction of 25%. Continue lisinopril and Lasix. 3. Essential hypertension, well controlled on Coreg, Lasix and lisinopril. 4. Hypothyroidism. Continue levothyroxine. 5. Diabetes mellitus. Continue metformin and low-carbohydrate diet. 6. Dyslipidemia. Continue Zocor. 7. History of myocardial infarction and coronary artery disease. Continue aggressive medical management. 8. Hypokalemia, repleted. lovenox for DVT prophylaxis Subjective 24 Hr Interval Summary Free Text/Dictation pt had a episode of bradycardia with HR down to 38 with second degree AV block on Monitor, today am no chest pain no plapitation Exam/Review of Systems Vital Signs Vitals Vital Signs Date Time Temp Pulse Resp B/P Pulse Ox O2 Delivery O2 Flow Rate FiO2 08/12/16 08:11 73 08/12/16 07:45 98.0 18 148/74 97 08/12/16 00:00 Room Air 08/10/16 20:25 3.0 08/10/16 09:39 50 Intake and Output 08/11/16 08/11/16 08/12/16 15:00 23:00 07:00 Intake Total 850 ml 520 ml Output Total 1400 ml 900 ml Balance -550 ml -380 ml Exam GENERAL APPEARANCE: The patient is lying in bed comfortably without any acute distress. He is awake, alert, oriented. He is able to answer my questions properly. EYES AND ENT: Conjunctivae and lids are normal. Pupils are normal. Extraocular normal. Hearing grossly normal. Lips are normal. Oral mucosa mildly dry. NECK: Supple. Trachea is midline. No lymphadenopathy. RESPIRATORY: Effort is normal. Clear to auscultation bilaterally. RESPIRATORY: Effort is normal. Decreased breath sounds bilateral lower lung choudhary with positive rales bilateral lower lung choudhary. CARDIOVASCULAR: Normal S1, S2. Regular rhythm and rate. Positive systolic murmur at the apex, trace edema bilateral lower extremities. NEUROLOGIC: Cranial nerves II through XII are grossly intact. CHEST: Normal expansion of thorax during inspiration. GASTROINTESTINAL: Abdomen is soft, nontender, not distended. Bowel sounds present. No guarding, no rebound. GENITOURINARY: Deferred. MUSCULOSKELETAL: Upper and lower extremities within normal limits with trace edema bilateral lower extremities. NEUROLOGICAL: Cranial nerves II through XII are grossly intact. PSYCHIATRIC: Normal judgment and insight. Alert and oriented x3. Mood and affect is normal. Results Result Diagram: 08/11/16 0710 08/11/16 0710 Results 24 hrs Laboratory Tests Test 08/11/16 11:42 08/11/16 17:11 08/11/16 20:31 08/12/16 08:15 Bedside Glucose 117 160 112 114 Medications Medications Current Medications Allopurinol (Zyloprim) 100 mg DAILY PO Last administered on 08/12/16 09:25; Admin Dose 100 MG; Start 08/11/16 at 09:00 Amlodipine Besylate (Norvasc) 10 mg DAILY PO Last administered on 08/12/16 09: 24; Admin Dose 10 MG; Start 08/11/16 at 09:00 Aspirin (Aspirin) 81 mg DAILY PO Last administered on 08/12/16 09:25; Admin Dose 81 MG; Start 08/11/16 at 09:00 Carvedilol (Coreg) 6.25 mg BID PO Last administered on 08/12/16 09:26; Admin Dose 6.25 MG; Start 08/10/16 at 21:00 Clopidogrel Bisulfate (plaVIX) 75 mg DAILY PO Last administered on 08/12/16 09 :25; Admin Dose 75 MG; Start 08/11/16 at 09:00 Folic Acid (Folic Acid) 1 mg DAILY PO Last administered on 08/12/16 09:25; Admin Dose 1 MG; Start 08/11/16 at 09:00 Insulin Glargine (Lantus) 10 unit QPM SC Last administered on 08/11/16 20:34; Admin Dose 10 UNIT; Start 08/10/16 at 21:00 Lisinopril (Zestril) 20 mg DAILY PO Last administered on 08/12/16 09:24; Admin Dose 20 MG; Start 08/11/16 at 09:00 Atorvastatin Calcium (Lipitor) 20 mg DAILY@21 PO Last administered on 20:31; Admin Dose 20 MG; Start 08/10/16 at 21:00 Lorazepam (Ativan) 0.5 mg Q8H PRN PO ANXIETY; Start 08/10/16 at 12:30 Ondansetron HCl (Zofran Tab) 4 mg Q6H PRN PO NAUSEA AND/OR VOMITING; Start at 12:30 Nitroglycerin (Nitroglycerin (Sl Tab) 0.4 Mg) 1 tab Q5M PRN SL CHEST PAIN; Start 08/10/16 at 12:30 Docusate Sodium (Colace) 100 mg Q12H PRN PO CONSTIPATION; Start 08/10/16 at 12: 30 Enoxaparin Sodium (Lovenox) 40 mg DAILY SC Last administered on 08/12/16 09:35 ; Admin Dose 40 MG; Start 08/11/16 at 09:00 Miscellaneous Information 1 ea NOTE XX ; Start 08/10/16 at 13:00 Glucose (Glutose) 15 gm Q15M PRN PO DECREASED GLUCOSE; Start 08/10/16 at 13:00 Glucose (Glutose) 22.5 gm Q15M PRN PO DECREASED GLUCOSE; Start 08/10/16 at 13: 00 Dextrose (D50w Syringe) 25 ml Q15M PRN IV DECREASED GLUCOSE; Start 08/10/16 at 13:00 Dextrose (D50w Syringe) 50 ml Q15M PRN IV DECREASED GLUCOSE; Start 08/10/16 at 13:00 Glucagon (Glucagen) 1 mg Q15M PRN IM DECREASED GLUCOSE; Start 08/10/16 at 13:00 Glucose 15 gm 15 gm Q15M PRN BUCCAL DECREASED GLUCOSE; Start 08/10/16 at 13:00 Ceftriaxone Sodium (Rocephin) 50 ml @ 100 mls/hr Q24H IVPB Last administered on 08/11/16 17:20; Admin Dose 100 MLS/HR; Start 08/10/16 at 17:00 Potassium Chloride (Klor-Con 20) 40 meq DAILY PO Last administered on 09:25; Admin Dose 40 MEQ; Start 08/11/16 at 12:00 Latanoprost (Xalatan) 1 drop HS BOTH EYES Last administered on 08/11/16t 20:32 ; Admin Dose 1 DROP; Start 08/11/16 at 21:00 WALDO ALDANA MD Aug 12, 2016 10:08
[2016-08-12] MEDS: metFORMIN 500 MG TAB PO SCH ×2 (10:28→18:02)
--- NOTE | 2016-08-12 12:12 | CONS ---
Date/Time of Note Date/Time of Note DATE: 08/12/16 TIME: 12:09 Assessment/Plan Assessment/Plan Chief Complaint/Hosp Course IMPRESSION: 1. Congestive heart failure exacerbation, systolic, acute on chronic, with most recent echo April 2016 revealing EF of 35%, severe aortic stenosis, aortic valve area of 0.7, mean gradient of 41.-improving 2. Hypertension. 3. Abnormal electrocardiogram, assess for acute coronary syndrome.-negative troponin x 3 4. History of a percutaneous transluminal coronary angioplasty and stent placement, most recently to left main drug-eluting stent April 2016. 5. Dyslipidemia. 6. Diabetes mellitus. 7. Hypernatremia 8. Increased BNP consistent with patient's congestive heart failure exacerbation. 9. Anemia, mild 10. Leukocytosis. 11.Bradycardic-to 39 with 2:1 block Recc: -Tele -serial ecg's -Continue asa/plavix -Contiue norvasc/zestril -Decrease dose of coreg and follow HR/rhythm closely -Contiue lasix diuresis Problems: Consultation Date/Type/Reason Admit Date/Time Aug 10, 2016 at 10:13 Initial Consult Date 08/10/2016 Type of Consultation: cardiology Reason for Consultation CHF/bradycardia Referring Provider: DEVYN FELIPE MD Exam/Review of Systems Vital Signs Vitals Vital Signs Date Time Temp Pulse Resp B/P Pulse Ox O2 Delivery O2 Flow Rate FiO2 08/12/16 12:08 78 08/12/16 11:12 98.2 18 130/64 95 08/12/16 00:00 Room Air 08/10/16 20:25 3.0 08/10/16 09:39 50 Intake and Output 08/11/16 08/11/16 08/12/16 15:00 23:00 07:00 Intake Total 850 ml 520 ml Output Total 1400 ml 900 ml Balance -550 ml -380 ml Exam Review of Systems: CONSTITUTIONAL: No fevers, chills. PULMONARY: No sob CARDIOVASCULAR: No chest pain/palpitations GASTROINTESTINAL: No nausea/vomiting. GENITOURINARY: No hematuria/dysuria. MUSCULOSKELETAL: No myagias/arthalgias. PSYCHIATRIC: The patient denies depression. NEUROLOGIC: No weakness Constitutional: alert, oriented Psych: no complaints Head: normocephalic ENMT: mucosa pink and moist Neck: jvd (9 cm water), supple Respiratory: diminished breath sounds (at bases/B) Cardiovascular: regular rate and rhythm Gastrointestinal: non-tender, soft Musculoskeletal: muscle tone (normal) Extremities: edema (None) Neurological: other (No focal deficits) Results Result Diagram: 08/11/16 0710 08/11/16 0710 Results 24 hrs Laboratory Tests Test 08/11/16 17:11 08/11/16 20:31 08/12/16 08:15 Bedside Glucose 160 112 114 Medications Medications Current Medications Allopurinol (Zyloprim) 100 mg DAILY PO Last administered on 08/12/16 09:25; Admin Dose 100 MG; Start 08/11/16 at 09:00 Amlodipine Besylate (Norvasc) 10 mg DAILY PO Last administered on 08/12/16 09: 24; Admin Dose 10 MG; Start 08/11/16 at 09:00 Aspirin (Aspirin) 81 mg DAILY PO Last administered on 08/12/16 09:25; Admin Dose 81 MG; Start 08/11/16 at 09:00 Carvedilol (Coreg) 6.25 mg BID PO Last administered on 08/12/16 09:26; Admin Dose 6.25 MG; Start 08/10/16 at 21:00 Clopidogrel Bisulfate (plaVIX) 75 mg DAILY PO Last administered on 08/12/16 09 :25; Admin Dose 75 MG; Start 08/11/16 at 09:00 Folic Acid (Folic Acid) 1 mg DAILY PO Last administered on 08/12/16 09:25; Admin Dose 1 MG; Start 08/11/16 at 09:00 Insulin Glargine (Lantus) 10 unit QPM SC Last administered on 08/11/16 20:34; Admin Dose 10 UNIT; Start 08/10/16 at 21:00 Lisinopril (Zestril) 20 mg DAILY PO Last administered on 08/12/16 09:24; Admin Dose 20 MG; Start 08/11/16 at 09:00 Atorvastatin Calcium (Lipitor) 20 mg DAILY@21 PO Last administered on 20:31; Admin Dose 20 MG; Start 08/10/16 at 21:00 Lorazepam (Ativan) 0.5 mg Q8H PRN PO ANXIETY; Start 08/10/16 at 12:30 Ondansetron HCl (Zofran Tab) 4 mg Q6H PRN PO NAUSEA AND/OR VOMITING; Start at 12:30 Nitroglycerin (Nitroglycerin (Sl Tab) 0.4 Mg) 1 tab Q5M PRN SL CHEST PAIN; Start 08/10/16 at 12:30 Docusate Sodium (Colace) 100 mg Q12H PRN PO CONSTIPATION; Start 08/10/16 at 12: 30 Enoxaparin Sodium (Lovenox) 40 mg DAILY SC Last administered on 08/12/16 09:35 ; Admin Dose 40 MG; Start 08/11/16 at 09:00 Miscellaneous Information 1 ea NOTE XX ; Start 08/10/16 at 13:00 Glucose (Glutose) 15 gm Q15M PRN PO DECREASED GLUCOSE; Start 08/10/16 at 13:00 Glucose (Glutose) 22.5 gm Q15M PRN PO DECREASED GLUCOSE; Start 08/10/16 at 13: 00 Dextrose (D50w Syringe) 25 ml Q15M PRN IV DECREASED GLUCOSE; Start 08/10/16 at 13:00 Dextrose (D50w Syringe) 50 ml Q15M PRN IV DECREASED GLUCOSE; Start 08/10/16 at 13:00 Glucagon (Glucagen) 1 mg Q15M PRN IM DECREASED GLUCOSE; Start 08/10/16 at 13:00 Glucose 15 gm 15 gm Q15M PRN BUCCAL DECREASED GLUCOSE; Start 08/10/16 at 13:00 Ceftriaxone Sodium (Rocephin) 50 ml @ 100 mls/hr Q24H IVPB Last administered on 08/11/16 17:20; Admin Dose 100 MLS/HR; Start 08/10/16 at 17:00 Potassium Chloride (Klor-Con 20) 40 meq DAILY PO Last administered on 09:25; Admin Dose 40 MEQ; Start 08/11/16 at 12:00 Latanoprost (Xalatan) 1 drop HS BOTH EYES Last administered on 08/11/16 20:32 ; Admin Dose 1 DROP; Start 08/11/16 at 21:00 ELEAONR ROLDAN Aug 12, 2016 12:12
[2016-08-12] MEDS: CEFTRIAXONE 1 GM/50 ML (PMX) 50 ML IVPB SCH (17:59)
[2016-08-12] MEDS: LATANOPROST 0.005% 2.5 ML OPH BOTH EYES SCH (21:20)
[2016-08-12] MEDS: ATORVASTATIN 20 MG TAB PO SCH (21:20)
[2016-08-12] MEDS: INSULIN GLARGINE [LANtus] 3 ML PEN SC SCH (21:27)
[2016-08-13] VITALS (12 sets, daily range): BP systolic 96–137; BP diastolic 56–67; PULSE 60–75; RESP 16–18
[2016-08-13 06:29] LABS: POTASSIUM 4.5 mmol/L (3.5-5.1)
[2016-08-13 06:32] LABS: CREATININE 1.39 mg/dl (0.61-1.24)
[2016-08-13 06:33] LABS: CALCIUM 9.2 mg/dl (8.4-10.2)
[2016-08-13] MEDS: FUROSEMIDE 40 MG TAB PO SCH ×2 (06:41→17:31)
[2016-08-13] MEDS: LEVOTHYROXINE 88 MCG TAB PO SCH (06:41)
[2016-08-13 06:45] LABS: INR 1.01; PROTIME 13.3 Sec (12.2-14.2)
[2016-08-13] MEDS: INSULIN ASPART [NOVOLOG] 3 ML PEN SC SCH ×4 (07:35→20:29)
[2016-08-13] MEDS: metFORMIN 500 MG TAB PO SCH ×2 (07:43→17:30)
[2016-08-13] MEDS: ENOXAPARIN 40 MG/0.4 ML SYG SC SCH (09:01)
[2016-08-13] MEDS: ALLOPURINOL 100 MG TAB PO SCH (09:02)
[2016-08-13] MEDS: CLOPIDOGREL 75 MG TAB PO SCH (09:02)
[2016-08-13] MEDS: ASPIRIN 81 MG TAB PO SCH (09:02)
[2016-08-13] MEDS: LISINOPRIL 20 MG TAB PO SCH (09:02)
[2016-08-13] MEDS: FOLIC ACID 1 MG TAB PO SCH (09:03)
[2016-08-13] MEDS: POTASSIUM CHLORIDE (SR) 20 MEQ TAB PO SCH (09:03)
[2016-08-13] MEDS: AMLODIPINE 10 MG TAB PO SCH (09:04)
--- NOTE | 2016-08-13 11:22 | PN ---
Date/Time of Note Date/Time of Note DATE: 08/13/16 TIME: 11:21 Assessment/Plan VTE Prophylaxis VTE Prophylaxis Intervention: LMWH Lines/Catheters IV C[facility] Type (from [facility] Saline Lock Urinary Cath still in place: No Assessment/Plan Assessment/Plan 1. Acute respiratory distress likely secondary to congestive heart failure with severe aortic stenosis. Cardiology was consulted. The patient was placed on diuresis. The patient is set up to be followed up with interventional radiology at [facility] for valvuloplasty. 2. Congestive heart failure exacerbation with the last echocardiogram showing ejection fraction of 25%. Continue lisinopril and Lasix. 3. Essential hypertension, well controlled on Coreg, Lasix and lisinopril. 4. Hypothyroidism. Continue levothyroxine. 5. Diabetes mellitus. Continue metformin and low-carbohydrate diet. 6. Dyslipidemia. Continue Zocor. 7. History of myocardial infarction and coronary artery disease. Continue aggressive medical management. 8. Hypokalemia, repleted. lovenox for DVT prophylaxis Exam/Review of Systems Vital Signs Vitals Vital Signs Date Time Temp Pulse Resp B/P Pulse Ox O2 Delivery O2 Flow Rate FiO2 08/13/16 10:56 98.6 78 18 96/56 97 08/12/16 20:00 Nasal Cannula 2.0 08/10/16 09:39 50 Intake and Output 08/12/16 08/12/16 08/13/16 15:00 23:00 07:00 Intake Total 750 ml 480 ml Output Total 680 ml 750 ml Balance 70 ml -270 ml Exam RESPIRATORY: Effort is normal. Decreased breath sounds bilateral lower lung choudhary with positive rales bilateral lower lung choudhary. CARDIOVASCULAR: Normal S1, S2. Regular rhythm and rate. Positive systolic murmur at the apex, trace edema bilateral lower extremities. NEUROLOGIC: Cranial nerves II through XII are grossly intact. CHEST: Normal expansion of thorax during inspiration. GASTROINTESTINAL: Abdomen is soft, nontender, not distended. Bowel sounds present. No guarding, no rebound. Results Result Diagram: 08/11/16 0710 08/13/16 0534 Results 24 hrs Laboratory Tests Test 08/12/16 12:27 08/12/16 14:25 08/12/16 17:49 08/12/16 21:19 Bedside Glucose 142 89 115 Thyroid Stimulating Hormone (TSH) 2.790 Test 08/13/16 05:34 08/13/16 05:40 08/13/16 07:34 Activated Partial Thromboplast Time 30.0 Anion Gap 18 H Blood Urea Nitrogen 29 #H Calcium Level 9.2 Carbon Dioxide Level 28 Chloride Level 103 Creatinine 1.39 H Glucose Level 87 # INR International Normalized Ratio 1.01 Potassium Level 4.5 Prothrombin Time 13.3 Prothrombin Time Ratio 1.0 Sodium Level 144 Magnesium Level 1.7 Bedside Glucose 87 Medications Medications Current Medications Allopurinol (Zyloprim) 100 mg DAILY PO Last administered on 08/13/16 09:02; Admin Dose 100 MG; Start 08/11/16 at 09:00 Amlodipine Besylate (Norvasc) 10 mg DAILY PO Last administered on 08/13/16 09: 04; Admin Dose 10 MG; Start 08/11/16 at 09:00 Aspirin (Aspirin) 81 mg DAILY PO Last administered on 08/13/16 09:02; Admin Dose 81 MG; Start 08/11/16 at 09:00 Clopidogrel Bisulfate (plaVIX) 75 mg DAILY PO Last administered on 08/13/16 09 :02; Admin Dose 75 MG; Start 08/11/16 at 09:00 Folic Acid (Folic Acid) 1 mg DAILY PO Last administered on 08/13/16 09:03; Admin Dose 1 MG; Start 08/11/16 at 09:00 Insulin Glargine (Lantus) 10 unit QPM SC Last administered on 08/12/16 21:27; Admin Dose 10 UNIT; Start 08/10/16 at 21:00 Lisinopril (Zestril) 20 mg DAILY PO Last administered on 08/13/16 09:02; Admin Dose 20 MG; Start 08/11/16 at 09:00 Atorvastatin Calcium (Lipitor) 20 mg DAILY@21 PO Last administered on 21:20; Admin Dose 20 MG; Start 08/10/16 at 21:00 Lorazepam (Ativan) 0.5 mg Q8H PRN PO ANXIETY; Start 08/10/16 at 12:30 Ondansetron HCl (Zofran Tab) 4 mg Q6H PRN PO NAUSEA AND/OR VOMITING; Start at 12:30 Nitroglycerin (Nitroglycerin (Sl Tab) 0.4 Mg) 1 tab Q5M PRN SL CHEST PAIN; Start 08/10/16 at 12:30 Docusate Sodium (Colace) 100 mg Q12H PRN PO CONSTIPATION; Start 08/10/16 at 12: 30 Enoxaparin Sodium (Lovenox) 40 mg DAILY SC Last administered on 08/13/16 09:01 ; Admin Dose 40 MG; Start 08/11/16 at 09:00 Miscellaneous Information 1 ea NOTE XX ; Start 08/10/16 at 13:00 Glucose (Glutose) 15 gm Q15M PRN PO DECREASED GLUCOSE; Start 08/10/16 at 13:00 Glucose (Glutose) 22.5 gm Q15M PRN PO DECREASED GLUCOSE; Start 08/10/16 at 13: 00 Dextrose (D50w Syringe) 25 ml Q15M PRN IV DECREASED GLUCOSE; Start 08/10/16 at 13:00 Dextrose (D50w Syringe) 50 ml Q15M PRN IV DECREASED GLUCOSE; Start 08/10/16 at 13:00 Glucagon (Glucagen) 1 mg Q15M PRN IM DECREASED GLUCOSE; Start 08/10/16 at 13:00 Glucose 15 gm 15 gm Q15M PRN BUCCAL DECREASED GLUCOSE; Start 08/10/16 at 13:00 Ceftriaxone Sodium (Rocephin) 50 ml @ 100 mls/hr Q24H IVPB Last administered on 08/12/16 17:59; Admin Dose 100 MLS/HR; Start 08/10/16 at 17:00 Potassium Chloride (Klor-Con 20) 40 meq DAILY PO Last administered on 09:03; Admin Dose 40 MEQ; Start 08/11/16 at 12:00 Latanoprost (Xalatan) 1 drop HS BOTH EYES Last administered on 08/12/16 21:20 ; Admin Dose 1 DROP; Start 08/11/16 at 21:00 Carvedilol (Coreg) 3.125 mg BID PO Last administered on 08/13/16 09:03; Admin Dose 3.125 MG; Start 08/12/16 at 21:00 WALDO ALDANA MD Aug 13, 2016 11:21
--- NOTE | 2016-08-13 11:24 | PDOCDIS ---
Discharge Instructions CONDITION Patient Condition: Good HOME CARE INSTRUCTIONS: Diet Instructions: Low Fat /CholesterolSpecial Diet: cardiac diet ACTIVITY: Activity Restrictions: Slowly Increase Activity Rest between Activity Avoid heavy lifting Avoid Heavy Housework FOLLOW UP/APPOINTMENTS Appointments follow up with Dr.Kalpesh Aldana([phone]) in 2-3 weeks, Follow up with as outpatient in 1-2 wee.Follow up with [facility] (formerly [facility]) scheduled surgery next week WALDO ALDANA MD Aug 13, 2016 11:24
[2016-08-13] MEDS ORDERED: LISI10TA2 PO (11:25)
[2016-08-13] MEDS ORDERED: CARV3.12 PO (11:25)
--- NOTE | 2016-08-13 12:43 | CONS ---
Date/Time of Note Date/Time of Note DATE: 08/13/16 TIME: 12:40 Assessment/Plan Assessment/Plan Additional Assessment/Plan 1. Congestive heart failure exacerbation, systolic, acute on chronic, with most recent echo April 2016 revealing EF of 35%, severe aortic stenosis, aortic valve area of 0.7, mean gradient of 41.-improving - DR. Flores follows 2. Hypertension - modest Rx, will monitor closely. 3. Abnormal electrocardiogram, assess for acute coronary syndrome.-negative troponin x 3 4. History of a percutaneous transluminal coronary angioplasty and stent placement, most recently to left main drug-eluting stent April 2016 - no chest pain now 5. Dyslipidemia. 6. Diabetes mellitus- on meds, keep euglycemic. 7. Hypernatremia 8. Increased BNP consistent with patient's congestive heart failure exacerbation. 9. Anemia, mild- H/h satble 10. Leukocytosis. 11.Bradycardic-to 39 with 2:1 block - sinus now, no class I indiction for pacer Consultation Date/Type/Reason Admit Date/Time Aug 10, 2016 at 10:13 Initial Consult Date Type of Consultation: cardiology Referring Provider: DEVYN FELIPE MD 24 HR Interval Summary Free Text/Dictation No acute change - BP stable - in sinus on tele. No pauses noted. Mediations reviewed ROS: No fever, no chills, no nausea, no vomiting, no diarrhea/constipation No recent weight changes No chest pain, no PND, no orthopnea No dizziness, blurred vision No thirst, no heat or cold intolerance Exam/Review of Systems Vital Signs Vitals Vital Signs Date Time Temp Pulse Resp B/P Pulse Ox O2 Delivery O2 Flow Rate FiO2 08/13/16 12:05 71 08/13/16 10:56 98.6 18 96/56 97 08/12/16 20:00 Nasal Cannula 2.0 08/10/16 09:39 50 Intake and Output 08/12/16 08/12/16 08/13/16 15:00 23:00 07:00 Intake Total 750 ml 480 ml Output Total 680 ml 750 ml Balance 70 ml -270 ml Exam General: WN/WD/NAD, AOx 2-3 HEENT: Unicetric/atraumatic/EOMI (follows commands) NECK: JVD elevated, no thyromegaly Lymph: no lymphadenopathy HEART: regular with no S3, II/ systolic murmur at apex LUNGS: Coarse sounds ABD: soft, NT, ND, +BS : Intact Neuro: non focal SKIN: chronic changes EXT: trace edema Results Result Diagram: 08/11/16 0710 08/13/16 0534 Results 24 hrs Laboratory Tests Test 08/12/16 14:25 08/12/16 17:49 08/12/16 21:19 08/13/16 05:34 Thyroid Stimulating Hormone (TSH) 2.790 Bedside Glucose 89 115 Activated Partial Thromboplast Time 30.0 Anion Gap 18 H Blood Urea Nitrogen 29 #H Calcium Level 9.2 Carbon Dioxide Level 28 Chloride Level 103 Creatinine 1.39 H Glucose Level 87 # INR International Normalized Ratio 1.01 Potassium Level 4.5 Prothrombin Time 13.3 Prothrombin Time Ratio 1.0 Sodium Level 144 Test 08/13/16 05:40 08/13/16 07:34 08/13/16 11:21 Magnesium Level 1.7 Bedside Glucose 87 126 Medications Medications Current Medications Allopurinol (Zyloprim) 100 mg DAILY PO Last administered on 08/13/16 09:02; Admin Dose 100 MG; Start 08/11/16 at 09:00 Amlodipine Besylate (Norvasc) 10 mg DAILY PO Last administered on 08/13/16 09: 04; Admin Dose 10 MG; Start 08/11/16 at 09:00 Aspirin (Aspirin) 81 mg DAILY PO Last administered on 08/13/16 09:02; Admin Dose 81 MG; Start 08/11/16 at 09:00 Clopidogrel Bisulfate (plaVIX) 75 mg DAILY PO Last administered on 08/13/16 09 :02; Admin Dose 75 MG; Start 08/11/16 at 09:00 Folic Acid (Folic Acid) 1 mg DAILY PO Last administered on 08/13/16 09:03; Admin Dose 1 MG; Start 08/11/16 at 09:00 Insulin Glargine (Lantus) 10 unit QPM SC Last administered on 08/12/16 21:27; Admin Dose 10 UNIT; Start 08/10/16 at 21:00 Atorvastatin Calcium (Lipitor) 20 mg DAILY@21 PO Last administered on 21:20; Admin Dose 20 MG; Start 08/10/16 at 21:00 Lorazepam (Ativan) 0.5 mg Q8H PRN PO ANXIETY; Start 08/10/16 at 12:30 Ondansetron HCl (Zofran Tab) 4 mg Q6H PRN PO NAUSEA AND/OR VOMITING; Start at 12:30 Nitroglycerin (Nitroglycerin (Sl Tab) 0.4 Mg) 1 tab Q5M PRN SL CHEST PAIN; Start 08/10/16 at 12:30 Docusate Sodium (Colace) 100 mg Q12H PRN PO CONSTIPATION; Start 08/10/16 at 12: 30 Enoxaparin Sodium (Lovenox) 40 mg DAILY SC Last administered on 08/13/16 09:01 ; Admin Dose 40 MG; Start 08/11/16 at 09:00 Miscellaneous Information 1 ea NOTE XX ; Start 08/10/16 at 13:00 Glucose (Glutose) 15 gm Q15M PRN PO DECREASED GLUCOSE; Start 08/10/16 at 13:00 Glucose (Glutose) 22.5 gm Q15M PRN PO DECREASED GLUCOSE; Start 08/10/16 at 13: 00 Dextrose (D50w Syringe) 25 ml Q15M PRN IV DECREASED GLUCOSE; Start 08/10/16 at 13:00 Dextrose (D50w Syringe) 50 ml Q15M PRN IV DECREASED GLUCOSE; Start 08/10/16 at 13:00 Glucagon (Glucagen) 1 mg Q15M PRN IM DECREASED GLUCOSE; Start 08/10/16 at 13:00 Glucose 15 gm 15 gm Q15M PRN BUCCAL DECREASED GLUCOSE; Start 08/10/16 at 13:00 Ceftriaxone Sodium (Rocephin) 50 ml @ 100 mls/hr Q24H IVPB Last administered on 08/12/16 17:59; Admin Dose 100 MLS/HR; Start 08/10/16 at 17:00 Potassium Chloride (Klor-Con 20) 40 meq DAILY PO Last administered on 09:03; Admin Dose 40 MEQ; Start 08/11/16 at 12:00 Latanoprost (Xalatan) 1 drop HS BOTH EYES Last administered on 08/12/16 21:20 ; Admin Dose 1 DROP; Start 08/11/16 at 21:00 Carvedilol (Coreg) 3.125 mg BID PO Last administered on 08/13/16 09:03; Admin Dose 3.125 MG; Start 08/12/16 at 21:00 Lisinopril (Zestril) 10 mg DAILY PO ; Start 08/14/16 at 09:00 DONNA MORALES MD Aug 13, 2016 12:43
[2016-08-13] MEDS: CEFTRIAXONE 1 GM/50 ML (PMX) 50 ML IVPB SCH (17:30)
[2016-08-13] MEDS: ATORVASTATIN 20 MG TAB PO SCH (20:28)
[2016-08-13] MEDS: LATANOPROST 0.005% 2.5 ML OPH BOTH EYES SCH (20:29)
[2016-08-13] MEDS: INSULIN GLARGINE [LANtus] 3 ML PEN SC SCH (20:37)
[2016-08-14] VITALS (8 sets, daily range): BP systolic 119–135; BP diastolic 57–67; PULSE 63–72; RESP 16–17
[2016-08-14] MEDS: LEVOTHYROXINE 88 MCG TAB PO SCH (06:36)
[2016-08-14] MEDS: FUROSEMIDE 40 MG TAB PO SCH (06:36)
[2016-08-14 07:27] LABS: INR 1.02; PROTIME 13.4 Sec (12.2-14.2)
[2016-08-14 07:28] LABS: PARTIAL THROMBOPLASTIN TIME 30.2 Sec (25.0-35.0)
[2016-08-14 07:35] LABS: POTASSIUM 4.4 mmol/L (3.5-5.1)
[2016-08-14 07:37] LABS: CREATININE 1.45 mg/dl (0.61-1.24)
[2016-08-14 07:38] LABS: CALCIUM 9.3 mg/dl (8.4-10.2)
[2016-08-14] MEDS: INSULIN ASPART [NOVOLOG] 3 ML PEN SC SCH ×2 (07:55→11:50)
[2016-08-14] MEDS: ASPIRIN 81 MG TAB PO SCH (08:47)
[2016-08-14] MEDS: metFORMIN 500 MG TAB PO SCH (08:47)
[2016-08-14] MEDS: ALLOPURINOL 100 MG TAB PO SCH (08:48)
[2016-08-14] MEDS: CLOPIDOGREL 75 MG TAB PO SCH (08:48)
[2016-08-14] MEDS: AMLODIPINE 10 MG TAB PO SCH (08:48)
[2016-08-14] MEDS: FOLIC ACID 1 MG TAB PO SCH (08:48)
[2016-08-14] MEDS: POTASSIUM CHLORIDE (SR) 20 MEQ TAB PO SCH (08:50)
[2016-08-14] MEDS: ENOXAPARIN 40 MG/0.4 ML SYG SC SCH (08:51)
[2016-08-14] MEDS ORDERED: LISINOPRIL 10 MG TAB PO SCH (09:00)
--- NOTE | 2016-08-14 11:30 | PN ---
Date/Time of Note Date/Time of Note DATE: 08/14/16 TIME: 11:27 Assessment/Plan VTE Prophylaxis VTE Prophylaxis Intervention: LMWH Lines/Catheters IV [facility]from [facility] Saline Lock Urinary Cath still in place: No Assessment/Plan Assessment/Plan 1. Acute respiratory distress likely secondary to congestive heart failure with severe aortic stenosis. Cardiology was consulted. The patient was placed on diuresis. The patient is set up to be followed up with interventional radiology at [facility] for valvuloplasty. 2. Congestive heart failure exacerbation with the last echocardiogram showing ejection fraction of 25%. Continue lisinopril and Lasix. 3. Essential hypertension, well controlled on Coreg, Lasix and lisinopril. 4. Hypothyroidism. Continue levothyroxine. 5. Diabetes mellitus. Continue metformin and low-carbohydrate diet. 6. Dyslipidemia. Continue Zocor. 7. History of myocardial infarction and coronary artery disease. Continue aggressive medical management. 8. Hypokalemia, repleted. lovenox for DVT prophylaxis Subjective 24 Hr Interval Summary Free Text/Dictation pt did not get discharged due to bradycardia with HR down to 37 with EKG showing Type II blcok Exam/Review of Systems Vital Signs Vitals Vital Signs Date Time Temp Pulse Resp B/P Pulse Ox O2 Delivery O2 Flow Rate FiO2 08/14/16 08:17 63 08/14/16 07:39 98.5 17 135/67 97 08/12/16 20:00 Nasal Cannula 2.0 08/10/16 09:39 50 Intake and Output 08/13/16 08/13/16 08/14/16 15:00 23:00 07:00 Intake Total 1100 ml 80 ml Output Total 850 ml 450 ml Balance 250 ml -370 ml Results Result Diagram: 08/11/16 0710 08/14/16 0620 Results 24 hrs Laboratory Tests Test 08/13/16 16:49 08/13/16 20:25 08/14/16 06:20 08/14/16 06:25 Bedside Glucose 112 105 Anion Gap 17 H Blood Urea Nitrogen 33 H Calcium Level 9.3 Carbon Dioxide Level 28 Chloride Level 103 Creatinine 1.45 H Glucose Level 64 #L Potassium Level 4.4 Sodium Level 144 Activated Partial Thromboplast Time 30.2 INR International Normalized Ratio 1.02 Prothrombin Time 13.4 Prothrombin Time Ratio 1.0 Test 08/14/16 08:15 Bedside Glucose 69 L Medications Medications Current Medications Allopurinol (Zyloprim) 100 mg DAILY PO Last administered on 08/14/16 08:48; Admin Dose 100 MG; Start 08/11/16 at 09:00 Amlodipine Besylate (Norvasc) 10 mg DAILY PO Last administered on 08/14/16 08: 48; Admin Dose 10 MG; Start 08/11/16 at 09:00 Aspirin (Aspirin) 81 mg DAILY PO Last administered on 08/14/16 08:47; Admin Dose 81 MG; Start 08/11/16 at 09:00 Clopidogrel Bisulfate (plaVIX) 75 mg DAILY PO Last administered on 08/14/16 08 :48; Admin Dose 75 MG; Start 08/11/16 at 09:00 Folic Acid (Folic Acid) 1 mg DAILY PO Last administered on 08/14/16 08:48; Admin Dose 1 MG; Start 08/11/16 at 09:00 Insulin Glargine (Lantus) 10 unit QPM SC Last administered on 08/13/16 20:37; Admin Dose 10 UNIT; Start 08/10/16 at 21:00 Atorvastatin Calcium (Lipitor) 20 mg DAILY@21 PO Last administered on 20:28; Admin Dose 20 MG; Start 08/10/16 at 21:00 Lorazepam (Ativan) 0.5 mg Q8H PRN PO ANXIETY; Start 08/10/16 at 12:30 Ondansetron HCl (Zofran Tab) 4 mg Q6H PRN PO NAUSEA AND/OR VOMITING; Start at 12:30 Nitroglycerin (Nitroglycerin (Sl Tab) 0.4 Mg) 1 tab Q5M PRN SL CHEST PAIN; Start 08/10/16 at 12:30 Docusate Sodium (Colace) 100 mg Q12H PRN PO CONSTIPATION; Start 08/10/16 at 12: 30 Enoxaparin Sodium (Lovenox) 40 mg DAILY SC Last administered on 08/14/16 08:51 ; Admin Dose 40 MG; Start 08/11/16 at 09:00 Miscellaneous Information 1 ea NOTE XX ; Start 08/10/16 at 13:00 Glucose (Glutose) 15 gm Q15M PRN PO DECREASED GLUCOSE; Start 08/10/16 at 13:00 Glucose (Glutose) 22.5 gm Q15M PRN PO DECREASED GLUCOSE; Start 08/10/16 at 13: 00 Dextrose (D50w Syringe) 25 ml Q15M PRN IV DECREASED GLUCOSE; Start 08/10/16 at 13:00 Dextrose (D50w Syringe) 50 ml Q15M PRN IV DECREASED GLUCOSE; Start 08/10/16 at 13:00 Glucagon (Glucagen) 1 mg Q15M PRN IM DECREASED GLUCOSE; Start 08/10/16 at 13:00 Glucose 15 gm 15 gm Q15M PRN BUCCAL DECREASED GLUCOSE; Start 08/10/16 at 13:00 Ceftriaxone Sodium (Rocephin) 50 ml @ 100 mls/hr Q24H IVPB Last administered on 08/13/16 17:30; Admin Dose 100 MLS/HR; Start 08/10/16 at 17:00 Potassium Chloride (Klor-Con 20) 40 meq DAILY PO Last administered on 08:50; Admin Dose 40 MEQ; Start 08/11/16 at 12:00 Latanoprost (Xalatan) 1 drop HS BOTH EYES Last administered on 08/13/16 20:29 ; Admin Dose 1 DROP; Start 08/11/16 at 21:00 Carvedilol (Coreg) 3.125 mg BID PO Last administered on 08/14/16 08:50; Admin Dose 3.125 MG; Start 08/12/16 at 21:00 Lisinopril (Zestril) 10 mg DAILY PO Last administered on 08/14/16 08:48; Admin Dose 10 MG; Start 08/14/16 at 09:00 WALDO ALDANA MD Aug 14, 2016 11:30
--- NOTE | 2016-08-14 15:11 | CONS ---
Date/Time of Note Date/Time of Note DATE: 08/14/16 TIME: 15:09 Assessment/Plan Assessment/Plan Additional Assessment/Plan 1. Congestive heart failure exacerbation, systolic, acute on chronic, with most recent echo April 2016 revealing EF of 35%, severe aortic stenosis, aortic valve area of 0.7, mean gradient of 41.-improving - DR. Flores follows - plan for outpt Valve RX 2. Hypertension - modest Rx, will monitor closely. 3. Abnormal electrocardiogram, assess for acute coronary syndrome.-negative troponin x 3 4. History of a percutaneous transluminal coronary angioplasty and stent placement, most recently to left main drug-eluting stent April 2016 - no chest pain now - no CP now 5. Dyslipidemia. 6. Diabetes mellitus- on meds, keep euglycemic. 7. Hypernatremia 8. Increased BNP consistent with patient's congestive heart failure exacerbation. 9. Anemia, mild- H/h satble 10. Leukocytosis. 11.Bradycardic-to 39 with 2:1 block - sinus now, no class I indiction for pacer - HR stable, sinus now. Consultation Date/Type/Reason Admit Date/Time Aug 10, 2016 at 10:13 Type of Consultation: cardiology Referring Provider: DEVYN FELIPE MD 24 HR Interval Summary Free Text/Dictation No acute events - BPsatble - no pauses - outpt AoV Rx planned. ROS: No fever, no chills, no nausea, no vomiting, no diarrhea/constipation No recent weight changes No chest pain, no PND, no orthopnea No dizziness, blurred vision No thirst, no heat or cold intolerance Exam/Review of Systems Vital Signs Vitals Vital Signs Date Time Temp Pulse Resp B/P Pulse Ox O2 Delivery O2 Flow Rate FiO2 08/14/16 12:11 72 08/14/16 11:34 98.4 17 131/65 99 08/12/16 20:00 Nasal Cannula 2.0 08/10/16 09:39 50 Intake and Output 08/13/16 08/13/16 08/14/16 15:00 23:00 07:00 Intake Total 1100 ml 80 ml Output Total 850 ml 450 ml Balance 250 ml -370 ml Exam General: WN/WD/NAD, AOx 2-3 HEENT: Unicetric/atraumatic/EOMI ( follow commands) NECK: JVD elevated, no thyromegaly Lymph: no lymphadenopathy HEART: regular with no S3, II/ systolic murmur at apex +2/6 m at base w/ delayed upstroke LUNGS: Coarse sounds ABD: soft, NT, ND, +BS : Intact Neuro: non focal SKIN: chronic changes EXT: trace edema Results Result Diagram: 08/11/16 0710 08/14/16 0620 Results 24 hrs Laboratory Tests Test 08/13/16 16:49 08/13/16 20:25 08/14/16 06:20 08/14/16 06:25 Bedside Glucose 112 105 Anion Gap 17 H Blood Urea Nitrogen 33 H Calcium Level 9.3 Carbon Dioxide Level 28 Chloride Level 103 Creatinine 1.45 H Glucose Level 64 #L Potassium Level 4.4 Sodium Level 144 Activated Partial Thromboplast Time 30.2 INR International Normalized Ratio 1.02 Prothrombin Time 13.4 Prothrombin Time Ratio 1.0 Test 08/14/16 08:15 08/14/16 12:34 Bedside Glucose 69 L 71 Medications Medications Current Medications Allopurinol (Zyloprim) 100 mg DAILY PO Last administered on 08/14/16 08:48; Admin Dose 100 MG; Start 08/11/16 at 09:00 Amlodipine Besylate (Norvasc) 10 mg DAILY PO Last administered on 08/14/16 08: 48; Admin Dose 10 MG; Start 08/11/16 at 09:00 Aspirin (Aspirin) 81 mg DAILY PO Last administered on 08/14/16 08:47; Admin Dose 81 MG; Start 08/11/16 at 09:00 Clopidogrel Bisulfate (plaVIX) 75 mg DAILY PO Last administered on 08/14/16 08 :48; Admin Dose 75 MG; Start 08/11/16 at 09:00 Folic Acid (Folic Acid) 1 mg DAILY PO Last administered on 08/14/16 08:48; Admin Dose 1 MG; Start 08/11/16 at 09:00 Insulin Glargine (Lantus) 10 unit QPM SC Last administered on 08/13/16 20:37; Admin Dose 10 UNIT; Start 08/10/16 at 21:00 Atorvastatin Calcium (Lipitor) 20 mg DAILY@21 PO Last administered on 20:28; Admin Dose 20 MG; Start 08/10/16 at 21:00 Lorazepam (Ativan) 0.5 mg Q8H PRN PO ANXIETY; Start 08/10/16 at 12:30 Ondansetron HCl (Zofran Tab) 4 mg Q6H PRN PO NAUSEA AND/OR VOMITING; Start at 12:30 Nitroglycerin (Nitroglycerin (Sl Tab) 0.4 Mg) 1 tab Q5M PRN SL CHEST PAIN; Start 08/10/16 at 12:30 Docusate Sodium (Colace) 100 mg Q12H PRN PO CONSTIPATION; Start 08/10/16 at 12: 30 Enoxaparin Sodium (Lovenox) 40 mg DAILY SC Last administered on 08/14/16 08:51 ; Admin Dose 40 MG; Start 08/11/16 at 09:00 Miscellaneous Information 1 ea NOTE XX ; Start 08/10/16 at 13:00 Glucose (Glutose) 15 gm Q15M PRN PO DECREASED GLUCOSE; Start 08/10/16 at 13:00 Glucose (Glutose) 22.5 gm Q15M PRN PO DECREASED GLUCOSE; Start 08/10/16 at 13: 00 Dextrose (D50w Syringe) 25 ml Q15M PRN IV DECREASED GLUCOSE; Start 08/10/16 at 13:00 Dextrose (D50w Syringe) 50 ml Q15M PRN IV DECREASED GLUCOSE; Start 08/10/16 at 13:00 Glucagon (Glucagen) 1 mg Q15M PRN IM DECREASED GLUCOSE; Start 08/10/16 at 13:00 Glucose 15 gm 15 gm Q15M PRN BUCCAL DECREASED GLUCOSE; Start 08/10/16 at 13:00 Ceftriaxone Sodium (Rocephin) 50 ml @ 100 mls/hr Q24H IVPB Last administered on 08/13/16 17:30; Admin Dose 100 MLS/HR; Start 08/10/16 at 17:00 Potassium Chloride (Klor-Con 20) 40 meq DAILY PO Last administered on 08:50; Admin Dose 40 MEQ; Start 08/11/16 at 12:00 Latanoprost (Xalatan) 1 drop HS BOTH EYES Last administered on 08/13/16 20:29 ; Admin Dose 1 DROP; Start 08/11/16 at 21:00 Carvedilol (Coreg) 3.125 mg BID PO Last administered on 08/14/16 08:50; Admin Dose 3.125 MG; Start 08/12/16 at 21:00 Lisinopril (Zestril) 10 mg DAILY PO Last administered on 08/14/16 08:48; Admin Dose 10 MG; Start 08/14/16 at 09:00 DONNA MORALES MD Aug 14, 2016 15:11
--- NOTE | 2016-08-16 17:18 | DS ---
DATE OF ADMISSION: 08/10/2016 DATE OF DISCHARGE: 08/14/2016 FINAL DISCHARGE DIAGNOSES: 1. Acute respiratory distress secondary to congestive heart failure with severe aortic stenosis. 2. Congestive heart failure, acute on chronic, systolic. 3. History of hypertension. 4. History of hypothyroidism. 5. History of diabetes mellitus. 6. History of dyslipidemia. 7. History of coronary artery disease on medical management. 8. Hypokalemia. CONSULTATIONS DONE DURING THIS HOSPITALIZATION: Cardiology consult, Dr. João Mar. PROCEDURES PERFORMED DURING THIS HOSPITALIZATION: The patient had echocardiogram done which reveale d ejection fraction 25%, no acute findings. 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 Flores, as outpatient. The patient is scheduled to have his aortic valve valvulo plasty on 08/18/2016 at [facility]. He presented to the [facility] with a complaint of shortness of breath and chest pain. He gets admitted for acute respiratory distress secondary to [place] CHF exacerbation. He was diuresed with IV Lasix followed up by [employer], Dr. Baron Flores. He remains symptomatically better. The patient was kept in the hospital because of having sinus b radycardia with a possible second degree AV block, but it was not a class I indication for a pacemak er so he gets discharged home with a followup with Dr. Waldo Lin, [employer]ver [employer], Dr. Baron ly and [facility] for AV valvuloplasty. DISPOSITION: To home. DISCHARGE CONDITION: Stable and improved compared to admission. DISCHARGE ACTIVITIES: As tolerated, slowly resume to the normal baseline activity. DISCHARGE DIET: Low fat, low sodium, ADA 1800 kilocalorie diet. DISCHARGE MEDICATIONS: As per medical reconciliation. His Coreg dose was decreased upon discharge and his lisinopril dose was also decreased upon discharge. DISCHARGE FOLLOWUP AND INSTRUCTIONS: 1. The patient is to follow up with Dr. Waldo Lin in 1 to 2 weeks after discharge. 2. The patient is to follow with [employer], Dr. Baron Flores, as outpatient in 1 to 2 weeks aft er discharge. 3. The patient is to follow up at the [facility] for his aortic valve surgery on 7. He has been explained about the discharge plan and followup instructions. He understood and ana cristina balized understanding. Dictated By: WALDO LIN MD, KP/ELIZABETH Conf#: [id number] DID#: [id number]
== END 2016-08-14 16:48 | disposition home or self-care (01) | DRG 291 ==
LOC: E/R 07:00 → TEL 10:13
PROVIDERS: ADMIT Family Medicine; ATTEND Family Medicine
DX: I11.0 Hypertensive heart disease with heart failure (principal); J96.00 Acute respiratory failure, unspecified whether with hypoxia or hypercapnia; E87.0 Hyperosmolality and hypernatremia; J18.9 Pneumonia, unspecified organism; E11.8 Type 2 diabetes mellitus with unspecified complications; I44.1 Atrioventricular block, second degree; I50.23 Acute on chronic systolic (congestive) heart failure; I35.0 Nonrheumatic aortic (valve) stenosis; D64.9 Anemia, unspecified; E03.9 Hypothyroidism, unspecified; Z95.5 Presence of coronary angioplasty implant and graft; I25.2 Old myocardial infarction; D72.829 Elevated white blood cell count, unspecified; M10.9 Gout, unspecified; Z87.891 Personal history of nicotine dependence
CPT/HCPCS: 36415; 36600; 71010; 80048; 80053; 80061; 82550; 82553; 82803; 82962; 83735; 83880; 84443; 84484; 85025; 85610; 85730; 93005; 94660; 96374; J1940; J0696; J1650; J1815

== ENCOUNTER 2017-02-15 09:12 | Inpatient (IN) | payer MEDICARE, OTHER ==
[2017-02-15] VITALS (12 sets, daily range): BP systolic 97–141; BP diastolic 66–88; PULSE 89–98; RESP 13–31; Ht 162.6 cm; Wt 68.5 kg
[~2017-02-15] VITALS: Ht 162.6 cm; Wt 68.5 kg
[~2017-02-15 09:12] MED LIST changes: +CARV3.12 PO; -CARV6.2579 PO; +LISI10TA2 PO; -LISI20TA11 PO
[2017-02-15] MEDS ORDERED: FUROSEMIDE 40 MG INJ IV ONE (09:30)
[2017-02-15] MEDS ORDERED: ASPIRIN 81 MG TAB PO ONE (09:30)
[2017-02-15 09:53] LABS: BASOPHILS % 0.2 % (0.0-2.0); EOSINOPHILS % 0.2 % (0.0-7.0); HEMATOCRIT 37.6 % (42.0-52.0); HEMOGLOBIN 12.3 g/dl (14.0-18.0); LYMPHOCYTES # 2.6 10^3/ul (0.8-2.9); LYMPHOCYTES % 20.9 % (15.0-51.0); MEAN CORPUSCULAR HGB CONC 32.7 g/dl (32.0-37.0); MEAN CORPUSCULAR VOLUME 82.5 fl (82.0-101.0); MEAN PLATELET VOLUME 11.5 fl (7.4-10.4); MONOCYTE # 0.7 10^3/ul (0.3-0.9); MONOCYTES % 5.3 % (0.0-11.0); NEUTROPHILS % 70.9 % (39.0-77.0); PLATELET COUNT 193 10^3/UL (140-415); RED BLOOD COUNT 4.56 10^6/ul (4.70-6.10); RED CELL DISTRIBUTION WIDTH 17.4 % (11.5-14.5); WHITE BLOOD COUNT 12.6 10^3/ul (4.8-10.8)
[2017-02-15 10:04] LABS: ALBUMIN 4.6 g/dl (3.3-4.9); BILIRUBIN,INDIRECT 0.7 mg/dl (0-1.1); BILIRUBIN,TOTAL 0.7 mg/dl (0.2-1.3); CALCIUM 9.7 mg/dl (8.4-10.2); CREATININE 1.37 mg/dl (0.61-1.24); POTASSIUM 4.7 mmol/L (3.5-5.1); TOTAL PROTEIN 9.2 g/dl (6.1-8.1)
[2017-02-15 10:16] LABS: TROPONIN-I 0.019 ng/ml (0.00-0.12)
[2017-02-15] MEDS ORDERED: LANT3I SC (10:16)
[2017-02-15] MEDS ORDERED: LOSA50TA6 PO (10:17)
--- NOTE | 2017-02-15 10:38 | ERA ---
ER Documentation Chief Complaint Date/Time DATE: 02/15/17 TIME: 10:32 Chief Complaint CP AND SOB HPI 81-year-old man not in by EMS from home for shortness of breath. He states he has had chest discomfort all morning substernal nonradiating nonexertional and developed increasing shortness of breath. Patient has a long history of severe coronary artery disease and is status post PTCA with drug-eluting stent placement. He was given aspirin and nitroglycerin en route with relief in some symptoms, he was placed on CPAP with improvement and transported here. She denies recent fevers or chills, no antibiotic use, no vomiting or diarrhea, no headache or blurry vision, no abdominal pain. ROS All systems reviewed and are negative except as per history of present illness. Medications Home Meds Active Scripts Lisinopril* (Lisinopril*) 10 Mg Tablet, 10 MG PO DAILY, #60 TAB Prov:WALDO ALDANA MD 08/13/16 Carvedilol* (Coreg*) 3.125 Mg Tablet, 3.125 MG PO BID, #60 TAB Prov:WALDO ALDANA MD 08/13/16 Furosemide* (Furosemide*) 40 Mg Tablet, 40 MG PO BID DIURETICS, #90 TAB 1 Refill Prov:DEIRDRE BERNARD 05/30/16 Reported Medications Losartan Potassium* (Losartan Potassium*) 50 Mg Tablet, 50 MG PO DAILY, TAB 02/15/17 Insulin Glargine* (Lantus*) 100 Unit/Ml Soln, 20 UNIT SC QHS, #1 VIAL 02/15/17 Folic Acid* (Folic Acid*) 1 Mg Tablet, 1 MG PO DAILY, TAB 05/27/16 Simvastatin* (Zocor*) 40 Mg Tablet, 40 MG PO QHS, #30 TAB 05/27/16 Aspirin* (Aspirin* Chew) 81 Mg Tab.chew, 81 MG PO DAILY, TAB.CHEW 05/27/16 Metformin* (Glucophage*) 1,000 Mg Tablet, 1000 MG PO BID, #60 TAB 05/06/16 Allopurinol* (Allopurinol*) 100 Mg Tablet, 100 MG PO DAILY, TAB 05/06/16 Clopidogrel Bisulfate (Clopidogrel) 75 Mg Tablet, 75 MG PO DAILY, #30 TAB 05/06/16 Potassium Chloride* (Potassium Chloride*) 8 Meq Capsule.er, 8 MEQ PO DAILY, CAP 05/06/16 Levothyroxine Sodium* (Levothyroxine Sodium*) 88 Mcg Tablet, 88 MCG PO BEFORE BREAKFAST, #30 TAB 05/06/16 Discontinued Reported Medications Amlodipine Besylate* (Amlodipine Besylate*) 10 Mg Tablet, 10 MG PO DAILY, #30 TAB 05/27/16 Melatonin (Melatonin) 5 Mg Tablet, 5 MG PO HS, TAB 05/27/16 Tramadol Hcl* (Ultram*) 50 Mg Tablet, 50 MG PO Q12 Y for PAIN, TAB 05/06/16 Discontinued Scripts Insulin Glargine* (Lantus*) 100 Unit/Ml Soln, 10 UNIT SC QPM, #1 Prov:DEVYN FELIPE MD 05/17/16 Allergies Allergies: Coded Allergies: No Known Allergies (Verified Allergy, Unknown, 02/15/17) PMhx/Soc Coronary artery disease, congestive heart failure with a depressed left ventricular ejection fraction at about 30%, previous [place] and PTCA with stent placement, hypertension, diabetes mellitus, obesity, hypothyroidism History of Surgery: Yes Anesthesia Reaction: No Hx Neurological Disorder: No Hx Respiratory Disorders: Yes (chf ) Hx Cardiac Disorders: Yes (severe aortic stenosis) Hx Psychiatric Problems: No Hx Miscellaneous Medical Probl: No Hx Alcohol Use: No Hx Substance Use: No Hx Tobacco Use: No Smoking Status: Never smoker FmHx Family History: No diabetes Physical Exam Vitals Vital Signs Date Time Temp Pulse Resp B/P Pulse Ox O2 Delivery O2 Flow Rate FiO2 02/15/17 09:40 111 18 139/82 100 BIPAP 02/15/17 09:30 125 97 100 02/15/17 09:21 123 18 144/88 83 Physical Exam GENERAL: Well-developed, dyspneic, diaphoretic, afebrile HEENT: Moist mucous membranes, pink conjunctiva, no cervical spine tenderness or step-off deformities, no goiter, no jaundice or icterus, extraocular movements intact without pain. No submandibular induration, and no pharyngeal erythema NEURO: Alert and oriented 3, cranial nerves II through XII intact bilaterally, pupils equal round reactive to light, no focal deficits or facial asymmetry, sensation intact distally Strength 5/5 in upper and lower extremities bilaterally CARDIAC: Tachycardic and regular, no murmurs rubs or gallops LUNGS: Bilateral crackles, no wheezing or stridor ABDOMEN: Soft nontender, no guarding, no rigidity, no rebound, no psoas sign no obturator sign. Normoactive bowel sounds SKIN: Warm and dry to touch, no abrasions, contusions, or hematomas, no lacerations, no ecchymosis, no target lesions, and without ulcers EXTREMITIES: No clubbing cyanosis, 2+ pitting edema in the lower extremities bilaterally, calves are bilaterally symmetrical, no Homans sign, no popliteal cord sign. Distal pulses equal and bilateral PSYCH: Normal affect without agitation or irritability Result Diagram: 02/15/1792302/15/17923 Results 24 hrs Laboratory Tests Test 02/15/17 09:24 White Blood Count 12.610^3/ul Red Blood Count 4.5610^6/ul Hemoglobin 12.3g/dl Hematocrit 37.6% Mean Corpuscular Volume 82.5fl Mean Corpuscular Hemoglobin 27.0pg Mean Corpuscular Hemoglobin Concent 32.7g/dl Red Cell Distribution Width 17.4% Platelet Count 39563^3/UL Mean Platelet Volume 11.5fl Neutrophils % 70.9% Lymphocytes % 20.9% Monocytes % 5.3% Eosinophils % 0.2% Basophils % 0.2% Nucleated Red Blood Cells % 0.0/100WBC Neutrophils # (Manual) 8.910^3/ul Lymphocytes # 2.610^3/ul Monocytes # 0.710^3/ul Eosinophils # 0.010^3/ul Basophils # 0.010^3/ul Nucleated Red Blood Cells # 0.010^3/ul Sodium Level 146mmol/L Potassium Level 4.7mmol/L Chloride Level 104mmol/L Carbon Dioxide Level 20mmol/L Anion Gap 27 Blood Urea Nitrogen 18mg/dl Creatinine 1.37mg/dl Glucose Level 277mg/dl Calcium Level 9.7mg/dl Total Bilirubin 0.7mg/dl Direct Bilirubin 0.00mg/dl Indirect Bilirubin 0.7mg/dl Aspartate Amino Transf (AST/SGOT) 25IU/L Alanine Aminotransferase (ALT/SGPT) 15IU/L Alkaline Phosphatase 94IU/L Troponin I 0.019ng/ml Total Protein 9.2g/dl Albumin 4.6g/dl Globulin 4.60g/dl Albumin/Globulin Ratio 1.00 Lipase 308U/L Current Medications Medications (Trade) Dose Ordered Sig/Leanna Route PRN Reason Start Time Stop Time Status Last Admin Dose Admin Aspirin (Aspirin) 324 mg ONCE ONCE PO 02/15/17 09:30 02/15/17 09:31 DC 02/15/17 09:27 Furosemide (Lasix) 60 mg ONCE ONCE IV 02/15/17 09:30 02/15/17 09:31 DC 02/15/17 09:31 Procedures/MDM IV line was established patient was placed on software licensing executive rhythm strip revealed a wide-complex tachycardia at 130 bpm. Patient was afebrile. Code STEMI was called after reviewing the EKG. Patient was placed on BiPAP for cardiac and respiratory support, I administered aspirin 324 mg p.o. for cardioprotective measures and furosemide 60 mg IV 1. EKG performed, read by me revealed a sinus tachycardia at 125 bpm, left axis deviation and a new left bundle branch block concerning for acute ischemia. I compared this EKG with previous ones and he has no history of LBBB. One view chest x-ray performed, read by me revealed bilateral pulmonary edema worse on the right compared to the left, no pneumothorax, no end of the diaphragm. environmental marketer evaluated the patient at the bedside and spoke to him, also spoke to his primary coo and recommended against emergent PCI for the time being, decision was made to admit to intensive care unit with BiPAP therapy and close monitoring. Critical Care: Time: 40 minutes, this was time separate from other billable procedures. Treatments/Evaluations: Close monitoring and treatment of unstable vital signs, cardiorespiratory, and neurologic status, while maintaining tight balance of fluid, respiratory, and cardiac interventions. CBC and electrolytes were normal, liver function tests normal, troponin negative. Departure Diagnosis: Primary Impression: Acute exacerbation of CHF (congestive heart failure) Qualified Code: I50.23 - Acute on chronic systolic congestive heart failure Additional Impressions: Acute respiratory failure Qualified Code: J96.01 - Acute respiratory failure with hypoxia and hypercapnia Unstable angina Hypertensive emergency Condition: Serious OPAL OSWALD MD Feb 15, 2017 10:38
[2017-02-15] MEDS ORDERED: NA PHOSPHATE/BIPHOS 133 ML ENEMA PR PRN (11:30)
[2017-02-15] MEDS ORDERED: MAGNESIUM HYDROXIDE 30ML CUP PO PRN (11:30)
[2017-02-15] MEDS ORDERED: LORAZEPAM 2 MG INJ IV PRN (11:30)
[2017-02-15] MEDS ORDERED: hydrALAzine 20 MG INJ IV PRN (11:30)
[2017-02-15] MEDS ORDERED: DOCUSATE SODIUM 100 MG CAP PO PRN (11:30)
[2017-02-15] MEDS ORDERED: ACETAMINOPHEN 325 MG TAB PO PRN (11:30)
[2017-02-15] MEDS ORDERED: HYDROCODONE/APAP (5/325) TAB PO PRN (11:30)
[2017-02-15] MEDS ORDERED: ONDANSETRON 4 MG INJ IV PRN (11:30)
[2017-02-15] MEDS ORDERED: NACL 0.9% 3 ML SYG IV SCH (11:30)
[2017-02-15] MEDS ORDERED: NITROGLYCERIN (SL) 0.4 MG TAB SL PRN (11:30)
[2017-02-15] MEDS ORDERED: ALBUTEROL/IPRATROPIUM (NEB) 3 ML AMP HHN PRN (11:30)
[2017-02-15] MEDS ORDERED: DEXTROSE 50% 50 ML SYRINGE IV PRN ×2 (12:00)
[2017-02-15] MEDS ORDERED: GLUCAGON 1 MG INJ IM PRN (12:00)
[2017-02-15] MEDS ORDERED: GLUCOSE GEL 15 GRAM TUBE BUCCAL PRN (12:00)
[2017-02-15] MEDS ORDERED: GLUCOSE GEL 15 GRAM TUBE PO PRN ×2 (12:00)
--- NOTE | 2017-02-15 12:04 | CONS ---
Date/Time of Note Date/Time of Note DATE: 02/15/17 TIME: 11:54 Assessment/Plan Assessment/Plan Additional Assessment/Plan Acute decompensated systolic congestive heart failure Left bundle branch block CAD with history of PCI to left main 2016 Aortic stenosis status post TAVR Ischemic cardiomyopathy -I was called to see the patient because of code STEMI given shortness of breath and left bundle branch block. History was obtained from patient as well as patient's primary high speed printer operator Dr. Flores over the phone. Patient currently denies any chest pain, patient appears in acute decompensated congestive heart failure. Laboratory studies with no significant troponin elevation. No indication for emergent cardiac catheterization at the current time. Would give IV Lasix as blood pressure permits, nitroglycerin, antiplatelet therapy. Dr Flores group to continue overall cardiac care for the patient. Consultation Date/Type/Reason Admit Date/Time Feb 15, 2017 at 09:34 Type of Consultation: Interventional cardiology Reason for Consultation Shortness of breath, chest pain and left bundle branch block on ECG Hx of Present Illness This is an 81-year-old male with past medical history of stenting to his left main and 2016, TAVR earlier this year and ischemic heart myopathy who presents with worsening shortness of breath since last night and cough. This morning, patient also with chest tightness and progressive worsening shortness of breath. Chest pain resolved after 3 nitroglycerin. Because of the above symptoms, he came for the emergency room for further evaluation and care. ECG with left bundle branch block and given his history, code STEMI was called. In discussion with patient, he denies any chest pain since this morning. Shortness of breath was improved with BiPAP. He states he is compliant with his medications. He denies any current dizziness, palpitations or abdominal pain. 12 point review of systems was performed with all pertinent positives and negatives mentioned above and all else is negative Past Medical History Medical History: congestive heart failure, coronary artery disease, hypertension Past Surgical History TAVR Past Surgical Hx: angioplasty Social History Smoking Status: Never smoker Other Social History Lives at home Exam/Review of Systems Vital Signs Vitals Vital Signs Date Time Temp Pulse Resp B/P Pulse Ox O2 Delivery O2 Flow Rate FiO2 02/15/17 11:15 97.8 97 17 137/75 98 BIPAP 02/15/17 11:15 40 Exam On BiPAP, dyspneic with extensively speaking, appears comfortable Constitutional: alert, oriented Head: normocephalic Respiratory: other (Coarse breath sounds with crackles more so on the right lung choudhary, no wheezing) Cardiovascular: other (S1-S2 heard), regular rate and rhythm Gastrointestinal: bowel sounds, non-tender, other (No guarding), soft Extremities: edema (Trace) Results Result Diagram: 02/15/1724 02/15/17 0924 Results 24 hrs Laboratory Tests Test 02/15/17 09:24 White Blood Count 12.6 #H Red Blood Count 4.56 L Hemoglobin 12.3 #L Hematocrit 37.6 #L Mean Corpuscular Volume 82.5 Mean Corpuscular Hemoglobin 27.0 L Mean Corpuscular Hemoglobin Concent 32.7 Red Cell Distribution Width 17.4 H Platelet Count 193 Mean Platelet Volume 11.5 H Neutrophils % 70.9 Lymphocytes % 20.9 Monocytes % 5.3 Eosinophils % 0.2 Basophils % 0.2 Nucleated Red Blood Cells % 0.0 Neutrophils # (Manual) 8.9 H Lymphocytes # 2.6 Monocytes # 0.7 Eosinophils # 0.0 Basophils # 0.0 Nucleated Red Blood Cells # 0.0 Sodium Level 146 H Potassium Level 4.7 Chloride Level 104 Carbon Dioxide Level 20 L Anion Gap 27 H Blood Urea Nitrogen 18 Creatinine 1.37 H Glucose Level 277 H Calcium Level 9.7 Total Bilirubin 0.7 Direct Bilirubin 0.00 Indirect Bilirubin 0.7 Aspartate Amino Transf (AST/SGOT) 25 Alanine Aminotransferase (ALT/SGPT) 15 Alkaline Phosphatase 94 Troponin I 0.019 B-Type Natriuretic Peptide 2680 H Total Protein 9.2 H Albumin 4.6 Globulin 4.60 H Albumin/Globulin Ratio 1.00 Lipase 308 H Medications Medications Current Medications Ondansetron HCl (Zofran Inj) 4 mg Q6H PRN IV NAUSEA AND/OR VOMITING; Start at 11:30 Acetaminophen (Tylenol Tab) 650 mg Q6H PRN PO PAIN LEVEL 1-3 OR FEVER; Start at 11:30 Acetaminophen/ Hydrocodone Bitart ([place] (5/325)) 1 tab Q6H PRN PO MODERATE PAIN LEVEL 4-6; Start 02/15/17 at 11:30 Morphine Sulfate (morphine) 2 mg Q4H PRN IV SEVERE PAIN LEVEL 7-10; Start 02/15 at 11:30 Docusate Sodium (Colace) 100 mg Q12H PRN PO CONSTIPATION; Start 02/15/17 at 11: 30 Magnesium Hydroxide (Milk Of Mag) 30 ml DAILY PRN PO CONSTIPATION; Start at 11:30 Sodium Biphosphate/ Sodium Phosphate (Fleet Enema) 133 ml DAILY PRN SC CONSTIPATION; Start 02/15/17 at 11:30 Famotidine (Pepcid Iv) 20 mg Q12 IV ; Start 02/15/17 at 21:00 Heparin Sodium (Porcine) (Heparin (5000 Units/0.5 ml)) 5,000 unit Q12 SC ; Start 02/15/17 at 21:00 Lorazepam 0.5 mg 0.5 mg Q6H PRN IV ANXIETY; Start 02/15/17 at 11:30 Levofloxacin/ Dextrose (Levaquin 750 Mg/ D5W 150 ml (Pmx)) 150 ml @ 100 mls/hr DAILY IVPB ; Start 02/16/17 at 09:00; Status UNV Hydralazine HCl (Apresoline) 10 mg Q6H PRN IV ELEVATED BLOOD PRESSURE; Start at 11:30 Nitroglycerin (Nitroglycerin (Sl Tab) 0.4 Mg) 1 tab Q5M PRN SL ANGINA; Start at 11:30 Aspirin (Aspirin) 81 mg DAILY PO ; Start 02/16/17 at 09:00 Carvedilol (Coreg) 3.125 mg BID PO ; Start 02/15/17 at 21:00 Clopidogrel Bisulfate (plaVIX) 75 mg DAILY PO ; Start 02/16/17 at 09:00 Folic Acid (Folic Acid) 1 mg DAILY PO ; Start 02/16/17 at 09:00 Insulin Glargine (Lantus) 20 unit QHS SC ; Start 02/15/17 at 21:00 Lisinopril (Zestril) 10 mg DAILY PO ; Start 02/16/17 at 09:00 Losartan Potassium (Cozaar) 50 mg DAILY PO ; Start 02/16/17 at 09:00; Status UNV Atorvastatin Calcium (Lipitor) 20 mg DAILY@21 PO ; Start 02/15/17 at 21:00 Procedures Procedures ECG with sinus tachycardia, left bundle branch block Lui Justice DO Feb 15, 2017 12:04
[2017-02-15 12:34] LABS: INR 1.02; PROTIME 13.4 Sec (12.2-14.2)
[2017-02-15] MEDS: LOSARTAN 50 MG TAB PO SCH (13:30)
[2017-02-15 13:33] LABS: PARTIAL THROMBOPLASTIN TIME 25.8 Sec (25.0-35.0)
[2017-02-15] MEDS: CLOPIDOGREL 75 MG TAB PO SCH (14:58)
--- NOTE | 2017-02-15 16:46 | CONS ---
DATE OF ADMISSION: 02/15/2017 DATE OF CONSULTATION: 02/15/2017 REASON FOR CONSULTATION: Shortness of breath. HISTORY OF PRESENT ILLNESS: Thank you Dr. Maldonado for this consultation. This is an 81-year-old gentleman well known to me seen by myself in the past with a history of coronary artery disease, left ventricular systolic dysfunction, history of severe aortic stenosis, presents with increasing shortness of breath, orthopnea, PND for several days, found to have moderate hypoxemia. Chest x-ray consistent with CHF and possible underlying pneumonia. Currently, patient denies any chest pain. He does have mild orthopnea and PND, which was treated with Lasix and BiPAP. Currently, he has improved vital signs. PAST MEDICAL HISTORY: As above. MEDICATIONS: Per chart. ALLERGIES: NONE. SOCIAL HISTORY: No smoking. No alcohol. No history of drug use. FAMILY HISTORY: Noncontributory. REVIEW OF SYSTEMS: A 12-point review of systems negative other than that mentioned above. PHYSICAL EXAMINATION: GENERAL: On examination, elderly appearing gentleman, comfortable at rest, in no acute distress. VITAL SIGNS: Currently afebrile. Pulse it is 90, blood pressure 137/75, O2 sat 96 percent on 30 percent FiO2. NECK: JVD is elevated. No lymphadenopathy. CARDIAC: S1, S2. A 2/6 systolic ejection murmur. CHEST: Diminished air entry bilaterally. No rales. ABDOMEN: Soft, nontender. No guarding or rebound. EXTREMITIES: No clubbing, cyanosis or edema. NEUROLOGIC: Generalized weakness. LABORATORY DATA: White count 12.6, hemoglobin 12.3, platelets of 193. BUN 18, creatinine 1.37. BNP 2680. EKG showed left bundle branch block. Lipase was elevated at 308. Chest x-ray, pulmonary edema, right lower lobe atelectasis, possible infiltrate. IMPRESSION: 1. Hypoxemic respiratory failure likely secondary to acute on chronic left ventricular heart failure. 2. Possible community-acquired pneumonia. 3. History of aortic valve replacement status post transcatheter aortic valve replacement. 4. Possible pancreatitis given elevated lipase. PLAN: 1. Continue gentle diuretics. 2. Continue supplemental O2. 3. BiPAP as needed. 4. Preload and afterload reduction. 5. DVT and GI prophylaxis. Dictated By: Jett Thakur MD /sha/slick /Document#: [id number]
[2017-02-15] MEDS ORDERED: FAMOTIDINE 20 MG INJ IV SCH ×2 (17:00→21:00)
[2017-02-15] MEDS ORDERED: POTASSIUM CHLORIDE (SR) 8 MEQ CAP PO SCH (17:00)
[2017-02-15] MEDS: INSULIN ASPART [NOVOLOG] 3 ML PEN SC SCH ×2 (17:13→21:00)
[2017-02-15] MEDS: FUROSEMIDE 40 MG INJ IV SCH (17:16)
[2017-02-15] MEDS ORDERED: FUROSEMIDE 40 MG TAB PO SCH (18:00)
--- NOTE | 2017-02-15 19:28 | HP ---
DATE OF ADMISSION: 02/15/2017 CHIEF COMPLAINT: Shortness of breath. HISTORY OF PRESENT ILLNESS: This is an 81-year-old male, past medical history of severe aortic stenosis, status post TAVR back in August of this year at [facility], ischemic cardiomyopathy, CAD with history of 4 stents, 1 to the left main in 2016, prior CHF who came in because of having shortness of breath for the last few days, worsening since last night. He was also having a nonproductive cough. Denies any fevers or chills. No upper or lower GI bleeding. No nausea, vomiting, or diarrhea. No constipation. No headaches or dizziness. No loss of consciousness. This morning apparently had some chest tightness, as well as worsening shortness of breath. So he decided to come in to the ER. He did take 3 nitroglycerins, which helped relieve his chest pain symptoms. When he came in he had an EKG performed in the ER that showed LBBB and there was concern of possible ST elevation DC, so a code STEMI was called. He was evaluated by the numerical control machine tool operator manager managed care who determined this was actually not ST- elevation DC, but signs of decompensated CHF. The patient was given 60 mg of IV Lasix in the ER, had minimal improvement in his shortness of breath symptoms. He also required CPAP and had improvement in his breathing symptoms. The patient is presently alert and oriented in ICU and had an echocardiogram performed this morning as well. States he is compliant with his medications. PAST MEDICAL HISTORY: As stated above and diabetes, hypothyroidism, and high cholesterol. ALLERGIES: NO KNOWN DRUG ALLERGIES. HOME MEDICATIONS: 1. Plavix 75 mg daily. 2. Coreg 3.125 mg b.i.d. 3. Lisinopril 10 mg daily. 4. Losartan 50 mg daily. 5. Zocor 10 mg bedtime. 6. Aspirin 81 mg daily. 7. Lasix 40 mg p.o. b.i.d. 8. Lantus 20 units subcutaneous bedtime. 9. Levothyroxine 88 mcg every morning. 10. Metformin 1000 mg b.i.d. 11. Folic acid 1 mg daily. 12. Allopurinol 100 mg daily. PAST SURGICAL HISTORY: Had appendix removed in 1959 and again he had the valve replacement surgery performed, all that was done through angiogram in August 2016. FAMILY HISTORY: Noncontributory. SOCIAL HISTORY: Negative for smoking, drinking, or IV drug abuse. PHYSICAL EXAMINATION: VITAL SIGNS: Today, T-max is 98.6, pulse 93-125, respirations 18- 36, blood pressure is 132-144 systolic over 88-80 diastolic, satting presently at 94 percent on 4 L nasal cannula. GENERAL: Patient lying in bed, answers questions appropriately. Alert and oriented. Family at bedside. No acute distress. HEENT: Pupils equal, round, react to light. Extraocular muscles intact. NECK: Supple. No thyromegaly. LUNGS: Mild crackles heard bilateral bases. No wheezes. CARDIOVASCULAR: S1, S2 heard. No rubs, gallops. ABDOMEN: Soft, nontender, nondistended. Normal bowel sounds. No rebound or guarding. MUSCULOSKELETAL: Trace pitting edema bilateral lower extremities to mid calf. NEUROLOGIC: No focal deficits. LABS: Sodium 146, potassium 4.7, chloride 104, CO2 20, BUN of 18, creatinine 1.37, and glucose 277. LFTs are normal. BNP was 2680. Lipase is 308. WBC 12.6, hemoglobin 12.3, hematocrit 37.6, and platelets of 193. Coags are normal. Chest x-ray today showed positive pulmonary edema, atherosclerosis and TAVR noted. ASSESSMENT AND PLAN: An 81-year-old male, prior history of coronary artery disease (CAD) with 4 stents, aortic stenosis with valve replacement in August 2016, hypertension, high cholesterol, hypothyroidism, diabetes, who presents with shortness of breath with signs of congestive heart failure (CHF) exacerbation and left bundle branch block (LBBB) seen on EKGs. 1. Shortness of breath. Again, secondary to acute decompensated heart failure. The patient has a known history of congestive heart failure (CHF) in the past with the ejection fraction around 30-35 percent range. We will admit the patient and put him on Lasix intravenous (IV) 40 mg b.i.d., keep head of bed greater than 30 degrees. Monitor ins and outs. Put him on morphine p.r.n., nitroglycerin p.r.n., and oxygen supplementation as well. Consider physical therapy (PT) consult as well. Check TSH, A1c and lipid panel. Follow up repeat echocardiogram. Get Cardiology consultations with the patient's outpatient manager managed care who comes to this hospital. Hold BALTA inhibitor for now given the patient's mild renal insufficiency. 2. Left bundle branch block. No signs of any chest pain. Again continue to monitor for now on heart rhythm on monitoring. Follow Cardiology recommendations. 3. History of coronary artery disease (CAD) with prior history of stent times 4. Continue aspirin and Plavix. Follow Cardiology recommendations. Follow up echocardiogram results. Monitor for now. 4. History of aortic stenosis status post aortic valve replacement. Again, continue current cardiac medications. Follow Cardiology recommendations. 5. Renal insufficiency. Again, creatinine slightly elevated at 1.37. Monitor ins and outs. Follow BMP in the morning. Hold BALTA inhibitor for now. Continue other cardiac medications. 6. Diabetes. Continue on sliding scale insulin, home Lantus and check A1c. 7. Hypothyroidism. Followup thyroid panel. Continue levothyroxine. 8. High cholesterol. Followup lipid panel. 9. Gastrointestinal (GI) prophylaxis with famotidine. 10. Deep venous thrombosis (DVT) prophylaxis. Heparin subcutaneous. Dictated By: Kieran Maldonado MD /sha/brooke /Document#: [id number]
[2017-02-15] MEDS: FAMOTIDINE 20 MG TAB PO SCH (21:10)
[2017-02-15] MEDS: ATORVASTATIN 20 MG TAB PO SCH (21:10)
[2017-02-15] MEDS: HEPARIN 5,000 UNIT/0.5 ML VIAL SC SCH (21:13)
[2017-02-15] MEDS: INSULIN GLARGINE [LANtus] 3 ML PEN SC SCH (22:03)
[2017-02-16] VITALS (25 sets, daily range): BP systolic 123–147; BP diastolic 70–87; PULSE 80–109; RESP 18–46
[2017-02-16] MEDS ORDERED: ACCU-CHEK XX SCH (02:00)
[2017-02-16] MEDS: ACCU-CHEK XX SCH (02:21)
[2017-02-16] MEDS: LEVOTHYROXINE 88 MCG TAB PO SCH (06:18)
[2017-02-16] MEDS: FUROSEMIDE 40 MG INJ IV SCH ×2 (06:18→17:19)
[2017-02-16 06:32] LABS: BASOPHILS % 0.1 % (0.0-2.0); HEMATOCRIT 34.5 % (42.0-52.0); HEMOGLOBIN 11.4 g/dl (14.0-18.0); LYMPHOCYTES # 1.9 10^3/ul (0.8-2.9); LYMPHOCYTES % 20.3 % (15.0-51.0); MEAN CORPUSCULAR HEMOGLOBIN 26.5 pg (29.0-33.0); MONOCYTE # 0.8 10^3/ul (0.3-0.9); NEUTROPHILS % 69.9 % (39.0-77.0); PLATELET COUNT 165 10^3/UL (140-415); RED BLOOD COUNT 4.31 10^6/ul (4.70-6.10); RED CELL DISTRIBUTION WIDTH 17.7 % (11.5-14.5); WHITE BLOOD COUNT 9.5 10^3/ul (4.8-10.8)
[2017-02-16 07:11] LABS: CALCIUM 9.8 mg/dl (8.4-10.2); CHOL/HDL RATIO 2.6 RATIO; CREATININE 1.36 mg/dl (0.61-1.24); MAGNESIUM 1.9 mg/dl (1.7-2.5); PHOSPHORUS 3.3 mg/dl (2.5-4.9); POTASSIUM 3.7 mmol/L (3.5-5.1)
[2017-02-16 07:32] LABS: THYROID STIMULATING HORMONE 1.43 MIU/L (0.465-4.680)
[2017-02-16] MEDS: INSULIN ASPART [NOVOLOG] 3 ML PEN SC SCH ×4 (07:35→21:00)
--- NOTE | 2017-02-16 07:43 | RADRPT ---
PROCEDURE: XR Chest. CLINICAL INDICATION: Shortness of breath. TECHNIQUE: Single frontal view. COMPARISON: 02/15/2017. FINDINGS: There is interstitial pulmonary edema, improved. The lungs are otherwise clear. The heart size is normal. There is calcification in the aorta consistent with atherosclerosis. The re is a TAVER. There is no pleural effusion. There is no pneumothorax. IMPRESSION: 1. Pulmonary edema, improved. 2. Atherosclerosis. 3. TAVER noted. RPTAT: QQ .Luciano Lanza MD, MD Date Time Electronically viewed and signed by .Luciano Lanza MD, MD on 02/16/2017 07:42 .R/
[2017-02-16 08:13] LABS: AADO2 Arterial 175.5 mmHg (7.0-24.0); Allen Test ACCEPTAB; Arterial Base Excess -2.8 mmol/L (-3.0-3); Arterial COHb 0.3 % (0.0-3.0); Arterial Fraction of Oxyhgb 95.2 % (93.0-99.0); Arterial HCO3 19.4 mmol/L (22.0-26.0); Arterial MetHb 0.2 % (0.0-1.5); Arterial Total Hemglobin 11.4 g/dl (12.0-18.0); Blood Gas IEPAP 15/5; MODE MASK - BIPAP
--- NOTE | 2017-02-16 08:20 | CONS ---
DATE OF ADMISSION: 02/15/2017 DATE OF CONSULTATION: 02/15/2017 REASON FOR CONSULTATION: Shortness of breath/pulmonary edema. HISTORY OF PRESENT ILLNESS: Mr. Adams is an 8-year-old gentleman known to me from history of hypertension, coronary artery disease, and history of aortic valve stenosis, status post- recent DIXON replacement a [facility], who comes in to the hospital now with shortness of breath, and chest discomfort. The patient was called in and ST-elevation myocardial infarction and left bundle branch block. He is being evaluated by Dr. Justice, who follows the patient. ST-elevation myocardial infarction. I have been asked to see the patient in consultation now. It appears that patient does have left bundle branch on his evaluation. He is fairly tachycardic, he responded well to BiPAP therapy as well as IV diuresis. His initial troponin is borderline. For now conservative therapy is expected. We will transfer the patient to Intensive Care Unit for further diuresis and optimization of patient. However, a 2D echo to establish ejection fraction also to evaluate the aortic valve replacement, which was done recently. Other than that conservative therapy was reflected and will continue further optimization, depending on the patient's no change in condition. PAST MEDICAL HISTORY: Hypertension, dyslipidemia. Aortic valve stenosis, status post-DIXON. Coronary artery disease. Prior history of stenting with Dr. Flores. History of dyslipidemia. History of CHF, with ejection fraction. ALLERGIES: NO KNOWN DRUG ALLERGIES. SOCIAL HISTORY: Pasquale not smoke, does not drink does not use drugs. FAMILY HISTORY: Negative for sudden cardiac or premature coronary artery disease. MEDICATION: He is on aspirin, Lasix 6 mg IV. REVIEW OF SYSTEMS: GENERAL: No fevers, no chills, no recent weight change. HEENT: No vision change. CARDIOVASCULAR: Chest pain as reported. RESPIRATORY: Shortness of breath. GASTROINTESTINAL: No nausea, vomiting. GENITOURINARY: No dysuria, hematuria. NEUROLOGIC: No focal neurologic deficits. PSYCHIATRIC: No history neuropsychiatric illness. PHYSICAL EXAMINATION: VITAL SIGNS: Temperature is 98.7, heart rate 111, blood pressure 139/82. GENERAL: He is a thin gentleman in no acute distress. Alert and oriented x3. Much better now, according to the Emergency room doctor after BiPAP. HEENT: Head is normocephalic. NECK: The neck is 9 to 10 cm. There is no lymphadenopathy. HEART: Regular. Soft murmur at the base, without any delayed upstrokes. LUNG: Coarse, with scattered wheezes. ABDOMEN: Distended, bowel sounds are present. EXTREMITIES: Shows trace edema. EKG: By wv shows sinus tachycardia with left bundle branch block. LABORATORY: White blood cell count 12.6, hemoglobin 127.6, platelets 193,000. Sodium 146, potassium 4.7. His creatinine is 1.37. Troponin is 0.19. AST 25, ALT 15. Lipase 308. IMPRESSION AND PLAN: 1. Congestive heart failure. The patient has heart failure positive /pulmonary edema versus chronic congestive heart failure. For now conservative care. Diuresis. Will continue to follow. 2. History of aortic stenosis, the patient has . Status post-history of DIXON at [facility] recently. Will obtain a 2D echocardiogram now to evaluate for valve function. 3. Hypertension. Blood pressure is well controlled now. Continue to monitor congestive heart failure. The patient has heart failure acute on chronic. Continue diuresis. The patient received several doses of Lasix and he is responding. May consider Candelaria placement. 4. Hypertension. Blood pressure well optimized. Continue to monitor closely. 5. Respiratory, the patient is on BiPAP. Continue to follow that. I would like to thank Dr. Uriel Torres, for referring this patient for my evaluation. Dictated By: João Mar MD /sha/ayan /Document#: [id number]
[2017-02-16] MEDS: FAMOTIDINE 20 MG TAB PO SCH (08:37)
[2017-02-16] MEDS: FOLIC ACID 1 MG TAB PO SCH (08:37)
[2017-02-16] MEDS: CLOPIDOGREL 75 MG TAB PO SCH (08:37)
[2017-02-16] MEDS: ASPIRIN 81 MG TAB PO SCH (08:37)
[2017-02-16] MEDS: HEPARIN 5,000 UNIT/0.5 ML VIAL SC SCH ×2 (08:40→21:44)
[2017-02-16] MEDS: LOSARTAN 50 MG TAB PO SCH (08:40)
[2017-02-16] MEDS ORDERED: LISINOPRIL 10 MG TAB PO SCH (09:00)
[2017-02-16] MEDS ORDERED: CLOPIDOGREL 75 MG TAB PO SCH (09:00)
--- NOTE | 2017-02-16 09:51 | PN ---
Date/Time of Note Date/Time of Note DATE: 02/16/17 TIME: 09:42 Assessment/Plan VTE Prophylaxis VTE Prophylaxis Intervention: heparin Lines/Catheters IV Catheter Type (from Nrs): Saline Lock Urinary Cath still in place: No Assessment/Plan Chief Complaint/Hosp Course ASSESSMENT AND PLAN: An 81-year-old male, prior history of coronary artery disease (CAD) with 4 stents, aortic stenosis with valve replacement in August 2016, hypertension, high cholesterol, hypothyroidism, diabetes, who presents with shortness of breath with signs of congestive heart failure (CHF) exacerbation and left bundle branch block (LBBB) seen on EKGs. 1. Shortness of breath-still present, slightly improved since yesterday. Symptoms are secondary to acute decompensated heart failure. The patient has a known history of congestive heart failure (CHF) in the past with ejection fraction around 30-35 percent range. -Continue Lasix intravenous (IV) 40 mg b.i.d., keep head of bed greater than 30 degrees. -Monitor ins and outs. Put him on morphine p.r.n., nitroglycerin p.r.n., and oxygen supplementation as well. - f/u physical therapy (PT) consult as well. - Follow up repeat echocardiogram. - Holding BALTA inhibitor for now given the patient's mild renal insufficiency. -per discussion with CV team today, continue to check serial troponins (only one ordered yesterday - nL) 2. Left bundle branch block. No signs of any chest pain. - Again continue to monitor for now on heart rhythm on monitoring. - Follow Cardiology recommendations. 3. History of coronary artery disease (CAD) with prior history of stent times 4. - Continue aspirin and Plavix. - Follow Cardiology recommendations. - Follow up echocardiogram results. Monitor for now. 4. History of aortic stenosis status post aortic valve replacement. Again, continue current cardiac medications. Follow Cardiology recommendations. 5. Renal insufficiency- creatinine was slightly elevated at1.37 on admission , essentially the same today. - Monitor ins and outs. - Follow BMP in the morning. -Holding BALTA inhibitor for now. - Continue other cardiac medications. 6. Diabetes. Continue on sliding scale insulin, home Lantus 7. Hypothyroidism. Followup thyroid panel. Continue levothyroxine. 8. High cholesterol. Followup lipid panel. 9. Gastrointestinal (GI) prophylaxis with famotidine. 10. Deep venous thrombosis (DVT) prophylaxis. Heparin subcutaneous. Critical care time spent on patient care today equals 45 minutes. Problems: Subjective 24 Hr Interval Summary Free Text/Dictation Patient had some increased shortness of breath symptoms this morning, presently on BiPAP since 5 AM this morning. Otherwise awake and alert. Seen by cardiology team yesterday. Exam/Review of Systems Vital Signs Vitals Vital Signs Date Time Temp Pulse Resp B/P Pulse Ox O2 Delivery O2 Flow Rate FiO2 02/16/17 09:00 101 18 135/85 97 BIPAP 02/16/17 08:00 99.3 5.0 02/15/17 12:45 30 Intake and Output 02/15/17 02/15/17 02/16/17 14:59 22:59 06:59 Intake Total 50 ml 740 ml Output Total 300 ml 1495 ml 750 ml Balance -250 ml -755 ml -750 ml Exam GENERAL: Patient lying in bed, answers questions appropriately, on BiPAP. Alert and oriented. Family at bedside. No acute distress. HEENT: Pupils equal, round, react to light. Extraocular muscles intact. NECK: Supple. No thyromegaly. LUNGS: Mild crackles heard bilateral bases. No wheezes. CARDIOVASCULAR: S1, S2 heard. No rubs, gallops. ABDOMEN: Soft, nontender, nondistended. Normal bowel sounds. No rebound or guarding. MUSCULOSKELETAL: Trace pitting edema bilateral lower extremities to mid calf. NEUROLOGIC: No focal deficits. Results Result Diagram: 02/16/17 0602/16/17 06 Results 24 hrs Laboratory Tests Test 02/15/17 11:50 02/15/17 15:46 02/15/17 17:12 02/15/17 21:16 Prothrombin Time 13.4 Prothrombin Time Ratio 1.0 INR International Normalized Ratio 1.02 Activated Partial Thromboplast Time 25.8 Free Thyroxine 1.46 Bedside Glucose 147 139 156 Test 02/15/17 22:02 02/16/17 02:16 02/16/17 06:05 02/16/17 07:00 Bedside Glucose 133 124 White Blood Count 9.5 # Red Blood Count 4.31 L Hemoglobin 11.4 L Hematocrit 34.5 L Mean Corpuscular Volume 80.0 L Mean Corpuscular Hemoglobin 26.5 L Mean Corpuscular Hemoglobin Concent 33.0 Red Cell Distribution Width 17.7 H Platelet Count 165 Mean Platelet Volume 11.0 H Neutrophils % 69.9 Lymphocytes % 20.3 Monocytes % 8.0 Eosinophils % 0.0 Basophils % 0.1 Nucleated Red Blood Cells % 0.0 Neutrophils # (Manual) 6.6 Lymphocytes # 1.9 Monocytes # 0.8 Eosinophils # 0.0 Basophils # 0.0 Nucleated Red Blood Cells # 0.0 Sodium Level 146 H Potassium Level 3.7 Chloride Level 102 Carbon Dioxide Level 26 Anion Gap 22 H Blood Urea Nitrogen 23 H Creatinine 1.36 H Glucose Level 115 # Hemoglobin A1c 6.6 H Calcium Level 9.8 Phosphorus Level 3.3 Magnesium Level 1.9 Triglycerides Level 91 Cholesterol Level 124 LDL Cholesterol, Calculated 59 HDL Cholesterol 47 Cholesterol/HDL Ratio 2.6 Lipase 322 H Thyroid Stimulating Hormone (TSH) 1.430 Blood Gas Specimen Source Blood arterial Arterial Blood Date Drawn 02/16/2017 7:30:32 AM Arterial Blood pH (Temp corrected) 7.485 H Arterial Blood pCO2 (Temp correct) 26.4 L Arterial Blood pO2 (Temp corrected) 79.3 L Arterial Blood HCO3 19.4 L Arterial Blood Base Excess -2.8 Arterial Blood Oxygen Saturation 95.7 Conrad Test ACCEPTAB Arterial Blood Gas Puncture Site Right Radial Arterial Blood Carboxyhemoglobin 0.3 Arterial Blood Methemoglobin 0.2 Blood Gas A-a O2 Differential 175.5 H Oxyhemoglobin Percent 95.2 Total Hemoglobin 11.4 L Blood Gas Temperature 37.0 Blood Gas Respiration Rate 16.0 Blood Gas Actual Respiration Rate 30 Blood Gas Modality MASK - BIPAP FiO2 40.0 Blood Gas IPAP/EPAP Ratio 15/5 Blood Gas Notified Whom JLD Blood Gas Notified Time 02/16/2017 8:13:26 AM Test 02/16/17 07:57 Bedside Glucose 131 Medications Medications Current Medications Ondansetron HCl (Zofran Inj) 4 mg Q6H PRN IV NAUSEA AND/OR VOMITING; Start at 11:30 Acetaminophen (Tylenol Tab) 650 mg Q6H PRN PO PAIN LEVEL 1-3 OR FEVER; Start at 11:30 Acetaminophen/ Hydrocodone Bitart ([place] (5/325)) 1 tab Q6H PRN PO MODERATE PAIN LEVEL 4-6; Start 02/15/17 at 11:30 Morphine Sulfate (morphine) 2 mg Q4H PRN IV SEVERE PAIN LEVEL 7-10; Start 02/15 at 11:30 Docusate Sodium (Colace) 100 mg Q12H PRN PO CONSTIPATION; Start 02/15/17 at 11: 30 Magnesium Hydroxide (Milk Of Mag) 30 ml DAILY PRN PO CONSTIPATION; Start at 11:30 Sodium Biphosphate/ Sodium Phosphate (Fleet Enema) 133 ml DAILY PRN [place] CONSTIPATION; Start 02/15/17 at 11:30 Heparin Sodium (Porcine) (Heparin (5000 Units/0.5 ml)) 5,000 unit Q12 SC Last administered on 02/16/17 08:40; Admin Dose 5,000 UNIT; Start 02/15/17 at 21:00 Lorazepam 0.5 mg 0.5 mg Q6H PRN IV ANXIETY; Start 02/15/17 at 11:30 Levofloxacin/ Dextrose (Levaquin 750 Mg/ D5W 150 ml (Pmx)) 150 ml @ 100 mls/hr Q48H IVPB ; Start 02/16/17 at 13:00 Hydralazine HCl (Apresoline) 10 mg Q6H PRN IV ELEVATED BLOOD PRESSURE; Start at 11:30 Nitroglycerin (Nitroglycerin (Sl Tab) 0.4 Mg) 1 tab Q5M PRN SL ANGINA; Start at 11:30 Aspirin (Aspirin) 81 mg DAILY PO Last administered on 02/16/17 08:37; Admin Dose 81 MG; Start 02/16/17 at 09:00 Carvedilol (Coreg) 3.125 mg BID PO Last administered on 02/16/17 08:38; Admin Dose 3.125 MG; Start 02/15/17 at 21:00 Folic Acid (Folic Acid) 1 mg DAILY PO Last administered on 02/16/17 08:37; Admin Dose 1 MG; Start 02/16/17 at 09:00 Insulin Glargine (Lantus) 20 unit QHS SC Last administered on 02/15/17 22:03; Admin Dose 20 UNIT; Start 02/15/17 at 21:00 Losartan Potassium (Cozaar) 50 mg DAILY PO Last administered on 02/16/17 08:40 ; Admin Dose 50 MG; Start 02/15/17 at 13:00 Atorvastatin Calcium (Lipitor) 20 mg DAILY@21 PO Last administered on 21:10; Admin Dose 20 MG; Start 02/15/17 at 21:00 Miscellaneous Information 1 ea NOTE XX ; Start 02/15/17 at 12:00 Glucose (Glutose) 15 gm Q15M PRN PO DECREASED GLUCOSE; Start 02/15/17 at 12:00 Glucose (Glutose) 22.5 gm Q15M PRN PO DECREASED GLUCOSE; Start 02/15/17 at 12: 00 Dextrose (D50w Syringe) 25 ml Q15M PRN IV DECREASED GLUCOSE; Start 02/15/17 at 12:00 Dextrose (D50w Syringe) 50 ml Q15M PRN IV DECREASED GLUCOSE; Start 02/15/17 at 12:00 Glucagon (Glucagen) 1 mg Q15M PRN IM DECREASED GLUCOSE; Start 02/15/17 at 12:00 Glucose (Glutose) 15 gm Q15M PRN BUCCAL DECREASED GLUCOSE; Start 02/15/17 at 12 :00 Diagnostic Test (Pha) (Accu-Chek) 1 ea 02 XX Last administered on 02/16/17 02: 21; Admin Dose 1 EA; Start 02/16/17 at 02:00 Clopidogrel Bisulfate (plaVIX) 75 mg DAILY PO Last administered on 02/16/17 08 :37; Admin Dose 75 MG; Start 02/15/17 at 14:27 Famotidine (Pepcid) 20 mg DAILY PO Last administered on 02/16/17 08:37; Admin Dose 20 MG; Start 02/15/17 at 21:00 GEORGINA HUTCHISON Feb 16, 2017 09:51
--- NOTE | 2017-02-16 10:00 | CONS ---
Date/Time of Note Date/Time of Note DATE: 02/16/17 TIME: 09:48 Assessment/Plan Assessment/Plan Chief Complaint/Hosp Course IMP: 1.CHF-systolic acute on chronic 2.sob/rersp failure-on BIPAP 3/H/O TAVR 4.H/O PTCA/stent most recent to LAD/LMN 04/04 5.HTN 6. LBBB REcc: -Tele -serial ecg's -complete FOREST -Continue coreg/losartan -Dose digoxin to improve HR/contractility -Continue lasix diuresis -strict I/O's -continue statin -will f/u echo to asses valve Problems: Consultation Date/Type/Reason Admit Date/Time Feb 15, 2017 at 10:26 Initial Consult Date 02/15/17 Type of Consultation: Interventional cardiology Reason for Consultation CHF Referring Provider: GEORGINA HUTCHISON Exam/Review of Systems Vital Signs Vitals Vital Signs Date Time Temp Pulse Resp B/P Pulse Ox O2 Delivery O2 Flow Rate FiO2 02/16/17 09:00 101 18 135/85 97 BIPAP 02/16/17 08:00 99.3 5.0 02/15/17 12:45 30 Intake and Output 02/15/17 02/15/17 02/16/17 15:00 23:00 07:00 Intake Total 50 ml 740 ml Output Total 300 ml 1495 ml 750 ml Balance -250 ml -755 ml -750 ml Exam Review of Systems: CONSTITUTIONAL: No fevers, chills. PULMONARY: mild sob CARDIOVASCULAR: intermittent chest pain GASTROINTESTINAL: No nausea/vomiting. GENITOURINARY: No hematuria/dysuria. MUSCULOSKELETAL: No myagias/arthalgias. PSYCHIATRIC: The patient denies depression. NEUROLOGIC: No weakness Constitutional: alert Psych: no complaints Head: normocephalic ENMT: mucosa pink and moist Neck: jvd (9 cm water), supple Respiratory: diminished breath sounds (at bases/B) Cardiovascular: regular rate and rhythm Gastrointestinal: non-tender, soft Musculoskeletal: muscle tone (normal) Extremities: edema (none) Neurological: other (No focal deficits) Results Result Diagram: 02/16/17 0605 02/16/17 0605 Results 24 hrs Laboratory Tests Test 02/15/17 11:50 02/15/17 15:46 02/15/17 17:12 02/15/17 21:16 Prothrombin Time 13.4 Prothrombin Time Ratio 1.0 INR International Normalized Ratio 1.02 Activated Partial Thromboplast Time 25.8 Free Thyroxine 1.46 Bedside Glucose 147 139 156 Test 02/15/17 22:02 02/16/17 02:16 02/16/17 06:05 02/16/17 07:00 Bedside Glucose 133 124 White Blood Count 9.5 # Red Blood Count 4.31 L Hemoglobin 11.4 L Hematocrit 34.5 L Mean Corpuscular Volume 80.0 L Mean Corpuscular Hemoglobin 26.5 L Mean Corpuscular Hemoglobin Concent 33.0 Red Cell Distribution Width 17.7 H Platelet Count 165 Mean Platelet Volume 11.0 H Neutrophils % 69.9 Lymphocytes % 20.3 Monocytes % 8.0 Eosinophils % 0.0 Basophils % 0.1 Nucleated Red Blood Cells % 0.0 Neutrophils # (Manual) 6.6 Lymphocytes # 1.9 Monocytes # 0.8 Eosinophils # 0.0 Basophils # 0.0 Nucleated Red Blood Cells # 0.0 Sodium Level 146 H Potassium Level 3.7 Chloride Level 102 Carbon Dioxide Level 26 Anion Gap 22 H Blood Urea Nitrogen 23 H Creatinine 1.36 H Glucose Level 115 # Hemoglobin A1c 6.6 H Calcium Level 9.8 Phosphorus Level 3.3 Magnesium Level 1.9 Triglycerides Level 91 Cholesterol Level 124 LDL Cholesterol, Calculated 59 HDL Cholesterol 47 Cholesterol/HDL Ratio 2.6 Lipase 322 H Thyroid Stimulating Hormone (TSH) 1.430 Blood Gas Specimen Source Blood arterial Arterial Blood Date Drawn 02/16/2017 7:30:32 AM Arterial Blood pH (Temp corrected) 7.485 H Arterial Blood pCO2 (Temp correct) 26.4 L Arterial Blood pO2 (Temp corrected) 79.3 L Arterial Blood HCO3 19.4 L Arterial Blood Base Excess -2.8 Arterial Blood Oxygen Saturation 95.7 Conrad Test ACCEPTAB Arterial Blood Gas Puncture Site Right Radial Arterial Blood Carboxyhemoglobin 0.3 Arterial Blood Methemoglobin 0.2 Blood Gas A-a O2 Differential 175.5 H Oxyhemoglobin Percent 95.2 Total Hemoglobin 11.4 L Blood Gas Temperature 37.0 Blood Gas Respiration Rate 16.0 Blood Gas Actual Respiration Rate 30 Blood Gas Modality MASK - BIPAP FiO2 40.0 Blood Gas IPAP/EPAP Ratio 15/5 Blood Gas Notified Whom ISRAELD Blood Gas Notified Time 02/16/2017 8:13:26 AM Test 02/16/17 07:57 Bedside Glucose 131 Medications Medications Current Medications Ondansetron HCl (Zofran Inj) 4 mg Q6H PRN IV NAUSEA AND/OR VOMITING; Start at 11:30 Acetaminophen (Tylenol Tab) 650 mg Q6H PRN PO PAIN LEVEL 1-3 OR FEVER; Start at 11:30 Acetaminophen/ Hydrocodone Bitart ([place] (5/325)) 1 tab Q6H PRN PO MODERATE PAIN LEVEL 4-6; Start 02/15/17 at 11:30 Morphine Sulfate (morphine) 2 mg Q4H PRN IV SEVERE PAIN LEVEL 7-10; Start 02/15 at 11:30 Docusate Sodium (Colace) 100 mg Q12H PRN PO CONSTIPATION; Start 02/15/17 at 11: 30 Magnesium Hydroxide (Milk Of Mag) 30 ml DAILY PRN PO CONSTIPATION; Start at 11:30 Sodium Biphosphate/ Sodium Phosphate (Fleet Enema) 133 ml DAILY PRN [place] CONSTIPATION; Start 02/15/17 at 11:30 Heparin Sodium (Porcine) (Heparin (5000 Units/0.5 ml)) 5,000 unit Q12 SC Last administered on 02/16/17 08:40; Admin Dose 5,000 UNIT; Start 02/15/17 at 21:00 Lorazepam 0.5 mg 0.5 mg Q6H PRN IV ANXIETY; Start 02/15/17 at 11:30 Levofloxacin/ Dextrose (Levaquin 750 Mg/ D5W 150 ml (Pmx)) 150 ml @ 100 mls/hr Q48H IVPB ; Start 02/16/17 at 13:00 Hydralazine HCl (Apresoline) 10 mg Q6H PRN IV ELEVATED BLOOD PRESSURE; Start at 11:30 Nitroglycerin (Nitroglycerin (Sl Tab) 0.4 Mg) 1 tab Q5M PRN SL ANGINA; Start at 11:30 Aspirin (Aspirin) 81 mg DAILY PO Last administered on 02/16/17 08:37; Admin Dose 81 MG; Start 02/16/17 at 09:00 Carvedilol (Coreg) 3.125 mg BID PO Last administered on 02/16/17 08:38; Admin Dose 3.125 MG; Start 02/15/17 at 21:00 Folic Acid (Folic Acid) 1 mg DAILY PO Last administered on 02/16/17 08:37; Admin Dose 1 MG; Start 02/16/17 at 09:00 Insulin Glargine (Lantus) 20 unit QHS SC Last administered on 02/15/17 22:03; Admin Dose 20 UNIT; Start 02/15/17 at 21:00 Losartan Potassium (Cozaar) 50 mg DAILY PO Last administered on 02/16/17 08:40 ; Admin Dose 50 MG; Start 02/15/17 at 13:00 Atorvastatin Calcium (Lipitor) 20 mg DAILY@21 PO Last administered on 21:10; Admin Dose 20 MG; Start 02/15/17 at 21:00 Miscellaneous Information 1 ea NOTE XX ; Start 02/15/17 at 12:00 Glucose (Glutose) 15 gm Q15M PRN PO DECREASED GLUCOSE; Start 02/15/17 at 12:00 Glucose (Glutose) 22.5 gm Q15M PRN PO DECREASED GLUCOSE; Start 02/15/17 at 12: 00 Dextrose (D50w Syringe) 25 ml Q15M PRN IV DECREASED GLUCOSE; Start 02/15/17 at 12:00 Dextrose (D50w Syringe) 50 ml Q15M PRN IV DECREASED GLUCOSE; Start 02/15/17 at 12:00 Glucagon (Glucagen) 1 mg Q15M PRN IM DECREASED GLUCOSE; Start 02/15/17 at 12:00 Glucose (Glutose) 15 gm Q15M PRN BUCCAL DECREASED GLUCOSE; Start 02/15/17 at 12 :00 Diagnostic Test (Pha) (Accu-Chek) 1 ea 02 XX Last administered on 02/16/17 02: 21; Admin Dose 1 EA; Start 02/16/17 at 02:00 Clopidogrel Bisulfate (plaVIX) 75 mg DAILY PO Last administered on 02/16/17 08 :37; Admin Dose 75 MG; Start 02/15/17 at 14:27 Famotidine (Pepcid) 20 mg DAILY PO Last administered on 02/16/17 08:37; Admin Dose 20 MG; Start 02/15/17 at 21:00 ELEANOR ROLDAN Feb 16, 2017 09:59
--- NOTE | 2017-02-16 12:39 | CONS ---
Date/Time of Note Date/Time of Note DATE: 02/16/17 TIME: 12:37 Consult Date/Type/Reason Admit Date/Time Feb 15, 2017 at 10:26 Initial Consult Date Type of Consultation: Pulm Ordering Provider: GEORGINA HUTCHISON Subjective Overall better, required bipap this morning. Objective Vital Signs Date Time Temp Pulse Resp B/P Pulse Ox O2 Delivery O2 Flow Rate FiO2 02/16/17 11:00 96 26 140/74 94 Nasal Cannula 5.0 02/16/17 08:00 99.3 02/15/17 12:45 30 Intake and Output 02/15/17 02/15/17 02/16/17 15:00 23:00 07:00 Intake Total 50 ml 740 ml Output Total 300 ml 1495 ml 750 ml Balance -250 ml -755 ml -750 ml Exam PHYSICAL EXAMINATION: GENERAL: On examination, elderly appearing gentleman, comfortable at rest, in no acute distress. VITAL SIGNS: NECK: JVD is elevated. No lymphadenopathy. CARDIAC: S1, S2. A 2/6 systolic ejection murmur. CHEST: Diminished air entry bilaterally. No rales. ABDOMEN: Soft, nontender. No guarding or rebound. EXTREMITIES: No clubbing, cyanosis or edema. NEUROLOGIC: Generalized weakness. Results/Medications Result Diagram: 02/16/17 0605 02/16/17 0605 Results 24 hrs cxr improved chf. Laboratory Tests Test 02/15/17 15:46 02/15/17 17:12 02/15/17 21:16 02/15/17 22:02 Bedside Glucose 147 139 156 133 Test 02/16/17 02:16 02/16/17 06:05 02/16/17 07:00 02/16/17 07:57 Bedside Glucose 124 131 White Blood Count 9.5 # Red Blood Count 4.31 L Hemoglobin 11.4 L Hematocrit 34.5 L Mean Corpuscular Volume 80.0 L Mean Corpuscular Hemoglobin 26.5 L Mean Corpuscular Hemoglobin Concent 33.0 Red Cell Distribution Width 17.7 H Platelet Count 165 Mean Platelet Volume 11.0 H Neutrophils % 69.9 Lymphocytes % 20.3 Monocytes % 8.0 Eosinophils % 0.0 Basophils % 0.1 Nucleated Red Blood Cells % 0.0 Neutrophils # (Manual) 6.6 Lymphocytes # 1.9 Monocytes # 0.8 Eosinophils # 0.0 Basophils # 0.0 Nucleated Red Blood Cells # 0.0 Sodium Level 146 H Potassium Level 3.7 Chloride Level 102 Carbon Dioxide Level 26 Anion Gap 22 H Blood Urea Nitrogen 23 H Creatinine 1.36 H Glucose Level 115 # Hemoglobin A1c 6.6 H Calcium Level 9.8 Phosphorus Level 3.3 Magnesium Level 1.9 Triglycerides Level 91 Cholesterol Level 124 LDL Cholesterol, Calculated 59 HDL Cholesterol 47 Cholesterol/HDL Ratio 2.6 Lipase 322 H Thyroid Stimulating Hormone (TSH) 1.430 Blood Gas Specimen Source Blood arterial Arterial Blood Date Drawn 02/16/2017 7:30:32 AM Arterial Blood pH (Temp corrected) 7.485 H Arterial Blood pCO2 (Temp correct) 26.4 L Arterial Blood pO2 (Temp corrected) 79.3 L Arterial Blood HCO3 19.4 L Arterial Blood Base Excess -2.8 Arterial Blood Oxygen Saturation 95.7 Conrad Test ACCEPTAB Arterial Blood Gas Puncture Site Right Radial Arterial Blood Carboxyhemoglobin 0.3 Arterial Blood Methemoglobin 0.2 Blood Gas A-a O2 Differential 175.5 H Oxyhemoglobin Percent 95.2 Total Hemoglobin 11.4 L Blood Gas Temperature 37.0 Blood Gas Respiration Rate 16.0 Blood Gas Actual Respiration Rate 30 Blood Gas Modality MASK - BIPAP FiO2 40.0 Blood Gas IPAP/EPAP Ratio 15/5 Blood Gas Notified Whom JLD Blood Gas Notified Time 02/16/2017 8:13:26 AM Test 02/16/17 11:43 Bedside Glucose 195 Medications Current Medications Ondansetron HCl (Zofran Inj) 4 mg Q6H PRN IV NAUSEA AND/OR VOMITING; Start at 11:30 Acetaminophen (Tylenol Tab) 650 mg Q6H PRN PO PAIN LEVEL 1-3 OR FEVER; Start at 11:30 Acetaminophen/ Hydrocodone Bitart ([place] (5/325)) 1 tab Q6H PRN PO MODERATE PAIN LEVEL 4-6; Start 02/15/17 at 11:30 Morphine Sulfate (morphine) 2 mg Q4H PRN IV SEVERE PAIN LEVEL 7-10; Start 02/15 at 11:30 Docusate Sodium (Colace) 100 mg Q12H PRN PO CONSTIPATION; Start 02/15/17 at 11: 30 Magnesium Hydroxide (Milk Of Mag) 30 ml DAILY PRN PO CONSTIPATION; Start at 11:30 Sodium Biphosphate/ Sodium Phosphate (Fleet Enema) 133 ml DAILY PRN VT CONSTIPATION; Start 02/15/17 at 11:30 Heparin Sodium (Porcine) (Heparin (5000 Units/0.5 ml)) 5,000 unit Q12 SC Last administered on 02/16/17 08:40; Admin Dose 5,000 UNIT; Start 02/15/17 at 21:00 Lorazepam 0.5 mg 0.5 mg Q6H PRN IV ANXIETY; Start 02/15/17 at 11:30 Levofloxacin/ Dextrose (Levaquin 750 Mg/ D5W 150 ml (Pmx)) 150 ml @ 100 mls/hr Q48H IVPB ; Start 02/16/17 at 13:00 Hydralazine HCl (Apresoline) 10 mg Q6H PRN IV ELEVATED BLOOD PRESSURE; Start at 11:30 Nitroglycerin (Nitroglycerin (Sl Tab) 0.4 Mg) 1 tab Q5M PRN SL ANGINA; Start at 11:30 Aspirin (Aspirin) 81 mg DAILY PO Last administered on 02/16/17 08:37; Admin Dose 81 MG; Start 02/16/17 at 09:00 Carvedilol (Coreg) 3.125 mg BID PO Last administered on 02/16/17 08:38; Admin Dose 3.125 MG; Start 02/15/17 at 21:00 Folic Acid (Folic Acid) 1 mg DAILY PO Last administered on 02/16/17 08:37; Admin Dose 1 MG; Start 02/16/17 at 09:00 Insulin Glargine (Lantus) 20 unit QHS SC Last administered on 02/15/17 22:03; Admin Dose 20 UNIT; Start 02/15/17 at 21:00 Losartan Potassium (Cozaar) 50 mg DAILY PO Last administered on 02/16/17 08:40 ; Admin Dose 50 MG; Start 02/15/17 at 13:00 Atorvastatin Calcium (Lipitor) 20 mg DAILY@21 PO Last administered on 21:10; Admin Dose 20 MG; Start 02/15/17 at 21:00 Miscellaneous Information 1 ea NOTE XX ; Start 02/15/17 at 12:00 Glucose (Glutose) 15 gm Q15M PRN PO DECREASED GLUCOSE; Start 02/15/17 at 12:00 Glucose (Glutose) 22.5 gm Q15M PRN PO DECREASED GLUCOSE; Start 02/15/17 at 12: 00 Dextrose (D50w Syringe) 25 ml Q15M PRN IV DECREASED GLUCOSE; Start 02/15/17 at 12:00 Dextrose (D50w Syringe) 50 ml Q15M PRN IV DECREASED GLUCOSE; Start 02/15/17 at 12:00 Glucagon (Glucagen) 1 mg Q15M PRN IM DECREASED GLUCOSE; Start 02/15/17 at 12:00 Glucose (Glutose) 15 gm Q15M PRN BUCCAL DECREASED GLUCOSE; Start 02/15/17 at 12 :00 Diagnostic Test (Pha) (Accu-Chek) 1 ea 02 XX Last administered on 02/16/17 02: 21; Admin Dose 1 EA; Start 02/16/17 at 02:00 Clopidogrel Bisulfate (plaVIX) 75 mg DAILY PO Last administered on 02/16/17 08 :37; Admin Dose 75 MG; Start 02/15/17 at 14:27 Famotidine (Pepcid) 20 mg DAILY PO Last administered on 02/16/17 08:37; Admin Dose 20 MG; Start 02/15/17 at 21:00 Assessment/Plan Chief Complaint/Hosp Course IMPRESSION: 1. Hypoxemic respiratory failure likely secondary to acute on chronic left ventricular heart failure. 2. Possible community-acquired pneumonia. 3. History of aortic valve replacement status post transcatheter aortic valve replacement. 4. Possible pancreatitis given elevated lipase. However clinically stable. PLAN: 1. Continue gentle diuretics. 2. Continue supplemental O2. 3. BiPAP as needed. 4. Preload and afterload reduction. 5. DVT and GI prophylaxis. transfer to [facility], encourage OOB. Problems: YOBANY PALUMBO MD, [facility] Feb 16, 2017 12:39
--- NOTE | 2017-02-16 13:22 | RADRPT ---
Vent Rate: 98 bpm RR Interval: 0 msec TN Interval: 152 msec QRS Duration: 176 msec QT Interval: 430 msec QTC Interval: 548 msec P-R-T [place]: 76 - -15 - 116 degrees Normal sinus rhythm Left bundle branch block Abnormal ECG Electronically Signed By: Lui Justice [id number]
[2017-02-16 13:31] LABS: CK-MB 1.23 ng/ml (0.0-2.4)
[2017-02-16 13:36] LABS: TROPONIN-I 0.676 ng/ml (0.00-0.12)
[2017-02-16] MEDS: LEVOFLOXACIN 750MG/D5W (PMX) 150 ML IVPB SCH (13:52)
--- NOTE | 2017-02-16 18:37 | RADRPT ---
Echocardiogram Report Patient Name: SINA GEORGE Gender: Male Date: 1935 Study Date: 15-Feb-2017 Cadd Drafter: Tomasz Pepe RDCS Location: [facility] Ref. Physician: DONNA MORALES Quality: Adequate Procedures: Transthoracic echocardiogram with complete 2D, M-Mode, and doppler examination. Indications: Shortness of breath. 2D/M Mode Doppler Measurement Value Normal Ranges Measurement Value Normal Ranges LVIDd 2D 5.3 3.5 - 5.6 cm MELANY Vmax 1.7 cm2 LVIDs 2D 4.9 2.1 - 4.1 cm MELANY VTI 1.7 cm2 LVPWd 2D 1.1 0.6 - 1.1 cm AV Mean Wong 1.5 m/sec IVSd 2D 1.3 0.6 - 1.1 cm AV Mean PG 10.3 mmHg AoR Diam 2D 1.9 2.0 - 3.7 cm AV Peak Wong 2.2 m/sec EDV 2D 134.9 cm3 AV Peak PG 20.2 mmHg ESV 2D 116.2 cm3 AV VTI 38.5 cm LA Dimen 2D 3.7 2.3 - 4.0 cm LVOT Mean Wong 1.0 m/sec LVOT Diam 1.9 cm LVOT Mean PG 4.5 mmHg LVOT Peak Wong 1.4 m/sec LVOT Peak PG 8.2 mmHg LVOT VTI 25.7 cm TR Peak Wong 2.0 m/sec TR Peak PG 15.2 mmHg RVSP 18.0 mmHg Findings Left Ventricle: Normal left ventricular cavity size. Mild concentric left ventricular hypertrophy. Severe global left ventricular systolic dysfunction. Ejection fraction is visually estimated at 2530 %. Right Ventricle: Normal right ventricular size. Normal right ventricular systolic function. Left Atrium: The left atrium is normal in size. Right Atrium: The right atrium is normal in size. Mitral Valve: Mitral valve leaflets appear mildly thickened. Mild mitral annular calcification. Mild mitral valve regurgitation. Aortic Valve: TAVR. Aortic valve Max velocity 2.25 m/sec. Max PG 20.20 mmHg. Mean PG 10.30 mmHg. Aortic valve area 1.80 cm2. Tricuspid Valve: Normal appearance of the tricuspid valve. Estimated peak PA systolic pressure 18 mmHg. There is trace tricuspid regurgitation. Pulmonic Valve: Normal pulmonic valve appearance. There is trace pulmonic regurgitation. Pericardium: Normal pericardium with no significant pericardial effusion. Aorta: Normal aortic root. IVC: Normal size and normal respiratory collapse consistent with normal right atrial pressure. Conclusions 1.Normal left ventricular cavity size. Mild concentric left ventricular hypertrophy. Severe global left ventricular systolic dysfunction. Ejection fraction is visually estimated at 25-30 %. 2.Trace to Mild mitral valve regurgitation. 3.s/p TAVR. Aortic valve Max velocity 2.25 m/sec. Max PG 20.20 mmHg. Mean PG 10.30 mmHg. Aortic valve area 1.80 cm2. no signs of perivalvular leak. 4.Normal appearance of the tricuspid valve. Estimated peak PA systolic pressure 18 mmHg. There is trace tricuspid regurgitation. 5.Normal pulmonic valve appearance. There is trace pulmonic regurgitation. Electronically Signed By: Baron Flores 16-Feb-2017 18:37:19 -0700 Patient Name: SINA GEORGE Study Date: 15-Feb-2017 [id number]
--- NOTE | 2017-02-16 18:40 | CONS ---
DATE OF ADMISSION: 02/15/2017 DATE OF CONSULTATION: 02/16/2017 REASON FOR CONSULTATION: Acute kidney injury. PHYSICIAN REQUESTING CONSULTATION: Kieran Maldonado MD HISTORY OF PRESENT ILLNESS: This is a 81-year-old male with a past medical history of aortic stenosis status post TAVR at [facility], history of ischemic cardiomyopathy, coronary artery disease, history of CHF who presents to [facility] with shortness of breath. The patient in the emergency room noted to have abnormal EKG, which showed left bundle-branch block. The patient was also in decompensated CHF, was given diuretic therapy and admitted to the ICU for evaluation. While in the intensive care unit, patient has remained on BiPAP and is pending possible cardiac catheterization a.m. In terms of patient's renal history, the patient has underlying CKD with previous creatinines ranging from 1.1-1.4 mg/dL. PAST MEDICAL HISTORY: As stated above. History of chronic kidney disease, history of hypertension, history of CHF, hypothyroidism, diabetes. PAST SURGICAL HISTORY: History of appendectomy. FAMILY HISTORY: Noncontributory. SOCIAL HISTORY: No drinking, smoking, or drug use. REVIEW OF SYSTEMS: A 14-point review of systems was conducted. Pertinent positives in HPI, otherwise negative. PHYSICAL EXAMINATION: VITAL SIGNS: Blood pressure is 120/76, temperature 98.6, respirations 16, heart rate 74. HEENT: Head is normocephalic. Pupils are reactive to light. NECK: Supple. HEART: Regular rate. LUNGS: Diminished breath sounds base. ABDOMEN: Soft, nontender to palpation. No guarding. EXTREMITIES: Negative for clubbing, cyanosis. No edema. DERMATOLOGIC: No rashes. MUSCULOSKELETAL: No joint effusion. NEUROLOGIC: Unchanged exam. MEDICATION: Reviewed. LABORATORY: Shows a white count 9.5, hemoglobin 9.4, hematocrit 34.4, platelet count is 165. Sodium 146, BUN 23, creatinine 1.36. IMPRESSION AND PLAN: This is an 81-year-old male who presents with: 1. Nonoliguric acute kidney injury on top of chronic kidney disease with previous baseline creatinine 1.1-1.4 mg/dL. The patient's renal function is near baseline. The plan at this point, will check urinalysis with microanalysis. Check urine lytes. Will continue current treatment plan. Continue diuretic therapy. Supportive care. Renally dose all meds. The patient is at moderate risk for contrast associated nephropathy if cardiac cath is to be done. Risks and benefits were explained to patient. 2. Hyponatremia. Patient has a free water deficit of approximately 1 L. Recommend to give the patient D5 water. 3. Acute respiratory failure secondary to congestive heart failure exacerbation. Continue current medical management. Follow up with Pulmonary. Continue BiPAP. 4. History of coronary artery disease. Continue current treatment plan. 5. Aortic stenosis status post aortic valve replacement. Continue current medical management. 6. Diabetes. Continue Accu-Chek and sliding scale. 7. Hypothyroidism. Continue Synthroid. Thank you, Dr. Maldonado, for this interesting consult. It will be a pleasure to follow the patient with you during the hospital course. Dictated By: Jean Carlos Fischer DO /sha/catarina /Document#: [id number]
[2017-02-16 19:00] LABS: ADD UMIC YES; UR ASCORBIC ACID NEGATIVE (NEGATIVE); UR BACTERIA FEW /HPF (NONE SEEN); UR BILIRUBIN (Dip) NEGATIVE (NEGATIVE); UR BLOOD (Dip) 1+ mg/dL (NEGATIVE); UR CLARITY CLEAR (CLEAR); UR COLOR YELLOW (YELLOW); UR GLUCOSE (Dip) NEGATIVE (NEGATIVE); UR KETONES (Dip) NEGATIVE (NEGATIVE); UR LEUKOCYTE ESTERASE (Dip) NEGATIVE Leu/ul (NEGATIVE); UR NITRITE (Dip) NEGATIVE (NEGATIVE); UR RBC 0 /HPF (0-5); UR TOTAL PROTEIN (Dip) 1+ mg/dl (NEGATIVE); UR UROBILINOGEN (Dip) NEGATIVE (NEGATIVE)
[2017-02-16 20:10] LABS: CK-MB 1.31 ng/ml (0.0-2.4); TROPONIN-I 0.713 ng/ml (0.00-0.12)
[2017-02-16] MEDS: ATORVASTATIN 20 MG TAB PO SCH (21:40)
[2017-02-16] MEDS: INSULIN GLARGINE [LANtus] 3 ML PEN SC SCH (21:43)
[2017-02-17] VITALS (28 sets, daily range): BP systolic 107–136; BP diastolic 52–81; PULSE 32–99; RESP 12–34
[2017-02-17] MEDS: ACCU-CHEK XX SCH (02:00)
[2017-02-17] MEDS: FUROSEMIDE 40 MG INJ IV SCH ×2 (05:59→18:37)
[2017-02-17 06:45] LABS: BASOPHILS % 0.2 % (0.0-2.0); EOSINOPHILS # 0.1 10^3/ul (0.0-0.5); EOSINOPHILS % 1.1 % (0.0-7.0); HEMATOCRIT 32.5 % (42.0-52.0); HEMOGLOBIN 10.9 g/dl (14.0-18.0); LYMPHOCYTES # 1.5 10^3/ul (0.8-2.9); LYMPHOCYTES % 25.7 % (15.0-51.0); MEAN CORPUSCULAR HEMOGLOBIN 27.2 pg (29.0-33.0); MEAN CORPUSCULAR HGB CONC 33.5 g/dl (32.0-37.0); MEAN PLATELET VOLUME 11.1 fl (7.4-10.4); MONOCYTE # 0.6 10^3/ul (0.3-0.9); MONOCYTES % 9.8 % (0.0-11.0); PLATELET COUNT 153 10^3/UL (140-415); RED BLOOD COUNT 4.01 10^6/ul (4.70-6.10); RED CELL DISTRIBUTION WIDTH 17.2 % (11.5-14.5); WHITE BLOOD COUNT 5.7 10^3/ul (4.8-10.8)
[2017-02-17 06:57] LABS: INR 1.2; PROTIME 15.3 Sec (12.2-14.2); PT RATIO 1.2
[2017-02-17 06:58] LABS: PARTIAL THROMBOPLASTIN TIME 41.1 Sec (25.0-35.0)
[2017-02-17 07:22] LABS: CALCIUM 9.4 mg/dl (8.4-10.2); CREATININE 1.42 mg/dl (0.61-1.24); POTASSIUM 3.3 mmol/L (3.5-5.1)
[2017-02-17] MEDS ORDERED: POTASSIUM CHLORIDE (SR) 20 MEQ TAB PO STA (07:27)
--- NOTE | 2017-02-17 07:34 | PN ---
DATE: 02/17/2017 SUBJECTIVE DATA: The patient is currently stable on nasal cannula. The patient is pending possible cardiac cath this morning. No other events noted overnight. OBJECTIVE DATA: VITAL SIGNS: Blood pressure is 136/57, respirations 20, pulse 78, temperature 98.6. HEENT: Normocephalic. NECK: Supple. HEART: Regular rate. LUNGS: Show diminished breath sounds at the base. ABDOMEN: Soft, nontender to palpation. No rebound or guarding. EXTREMITIES: Negative for clubbing, cyanosis. No edema. DERMATOLOGIC: Clean. No rashes. MUSCULOSKELETAL: No joint effusion. NEUROLOGIC: No change in exam. MEDICATIONS: Reviewed. LABORATORY AND DIAGNOSTIC DATA: Currently pending. Urinalysis shows FENa greater than 1 percent, protein/creatinine ratio approximately 800 mg/g of creatinine. ASSESSMENT AND PLAN: 1. Nonoliguric acute kidney injury on top of chronic kidney disease with previous baseline creatinine of 1.1 to 1.4 mg/dL. The patient's renal function is currently at baseline. The patient's urinalysis was reviewed. No evidence of active sediment. At this point, continue current treatment, supportive care. Renally dose all meds. Please note, patient is at moderate risk for contrast-associated nephropathy. Would defer any angiotensin-converting enzyme inhibitor or angiotension receptor bijal during at this time. We will monitor closely. 2. Hypernatremia. Continue current free water intake. 3. Acute respiratory failure secondary to congestive heart failure exacerbation. The patient is currently on nasal cannula, tolerating well. 4. History of coronary artery disease. Continue medical management. 5. History of aortic stenosis, status post aortic valve replacement. 6. Diabetes. Continue Accu-Cheks, insulin sliding scale. 7. Hypothyroidism. Continue Synthroid. Dictated By: Jean Carlos Fischer DO /sha/dc /Document#: [id number]
[2017-02-17] MEDS: INSULIN ASPART [NOVOLOG] 3 ML PEN SC SCH ×4 (07:35→21:00)
[2017-02-17] MEDS: LEVOTHYROXINE 88 MCG TAB PO SCH (07:55)
[2017-02-17] MEDS: ASPIRIN 81 MG TAB PO SCH (07:56)
[2017-02-17] MEDS: CLOPIDOGREL 75 MG TAB PO SCH (07:56)
[2017-02-17] MEDS: FAMOTIDINE 20 MG TAB PO SCH (07:57)
[2017-02-17] MEDS: FOLIC ACID 1 MG TAB PO SCH (07:57)
[2017-02-17] MEDS ORDERED: DIAZEPAM 5 MG TAB PO ONE (08:00)
[2017-02-17] MEDS ORDERED: DIPHENHYDRAMINE 50 MG CAP PO ONE (08:00)
--- NOTE | 2017-02-17 08:11 | RADRPT ---
PROCEDURE: XR Chest 1 view. CLINICAL INDICATION: Shortness of breath TECHNIQUE: AP views of the chest was obtained. COMPARISON: Yesterday FINDINGS: The heart is large. Calcified atherosclerosis is noted in the aorta. Aortic valve replacement is ob served. Central pulmonary vascular congestion and interstitial prominence in both lungs is unchange d. Scattered atelectasis is noted in both lungs. Scattered atelectasis is seen in both lungs. Rig ht basilar infiltrates have resolved. No consolidations are identified. No pneumothorax is seen. B lunting left costophrenic angle is observed. The osseous structures are unchanged. IMPRESSION: Cardiomegaly with calcified atherosclerosis in the aorta. Stable central pulmonary vascular congestion and mild interstitial prominence in both lungs. Interval resolution in right basilar infiltrates. Scattered atelectasis in both lungs. Blunting of the left costophrenic angle that may reflect trace pleural effusion. RPTAT: AA .Leonard Gonzales MD, MD Date Time Electronically viewed and signed by .Leonard Gonzales MD, on 02/17/2017 08:10 .P/
[2017-02-17] MEDS: LOSARTAN 50 MG TAB PO SCH (09:17)
--- NOTE | 2017-02-17 09:46 | PN ---
Date/Time of Note Date/Time of Note DATE: 02/17/17 TIME: 09:43 Assessment/Plan VTE Prophylaxis VTE Prophylaxis Intervention: heparin Lines/Catheters IV Catheter Type (from Nrs): Peripheral IV Urinary Cath still in place: No Assessment/Plan Chief Complaint/Hosp Course ASSESSMENT AND PLAN: An 81-year-old male, prior history of coronary artery disease (CAD) with 4 stents, aortic stenosis with valve replacement in August 2016, hypertension, high cholesterol, hypothyroidism, diabetes, who presents with shortness of breath with signs of congestive heart failure (CHF) exacerbation and left bundle branch block (LBBB) seen on EKGs. 1. Shortness of breath-slowly improving. Symptoms are secondary to acute decompensated heart failure. The patient has a known history of congestive heart failure (CHF) in the past with ejection fraction around 30-35 percent range. Also found with elevated troponin second and third, and awaiting left heart cath for later this morning. -Continue Lasix intravenous (IV) 40 mg b.i.d., keep head of bed greater than 30 degrees. -Monitor ins and outs. morphine p.r.n., nitroglycerin p.r.n., and oxygen supplementation as well. -Follow-up findings from left heart cath and post procedure recommendations from cardiology team - f/u physical therapy (PT) consult as well. - Follow up repeat echocardiogram. - Holding BALTA inhibitor for now given the patient's mild renal insufficiency. 2. Left bundle branch block. No signs of any chest pain. - Again continue to monitor for now on heart rhythm on monitoring. - Follow Cardiology recommendations. 3. History of coronary artery disease (CAD) with prior history of stent times 4. - Continue aspirin and Plavix. - Follow Cardiology recommendations. - Follow up echocardiogram results. Monitor for now. 4. History of aortic stenosis status post aortic valve replacement. Again, continue current cardiac medications. Follow Cardiology recommendations. 5. Renal insufficiency-creatinine at 1.42 today. Appreciate renal consult. - Monitor ins and outs, follow-up renal recommendations - Follow BMP in the morning. -Holding BALTA inhibitor for now. - Continue other cardiac medications. 6. Diabetes. Continue on sliding scale insulin, home Lantus 7. Hypothyroidism. Followup thyroid panel. Continue levothyroxine. 8. High cholesterol-monitor 9. Gastrointestinal (GI) prophylaxis with famotidine. 10. Deep venous thrombosis (DVT) prophylaxis. Heparin subcutaneous. Critical care time spent on patient care today equals 40 minutes. Problems: Subjective 24 Hr Interval Summary Free Text/Dictation No acute events overnight. Awaiting left heart catheter later today. Seen by renal team yesterday. Exam/Review of Systems Vital Signs Vitals Vital Signs Date Time Temp Pulse Resp B/P Pulse Ox O2 Delivery O2 Flow Rate FiO2 02/17/17 08:00 Nasal Cannula 2.0 02/17/17 08:00 98.0 79 19 132/77 100 02/17/17 02:19 31 Intake and Output 02/16/17 02/16/17 02/17/17 15:00 23:00 07:00 Intake Total 990 ml 220 ml 0 ml Output Total 775 ml 500 ml 600 ml Balance 215 ml -280 ml -600 ml Exam GENERAL: Patient lying in bed, answers questions appropriately, Alert and oriented. Family at bedside. No acute distress. HEENT: Pupils equal, round, react to light. Extraocular muscles intact. NECK: Supple. No thyromegaly. LUNGS: Mild crackles heard bilateral bases. No wheezes. CARDIOVASCULAR: S1, S2 heard. No rubs, gallops. ABDOMEN: Soft, nontender, nondistended. Normal bowel sounds. No rebound or guarding. MUSCULOSKELETAL: Trace pitting edema bilateral lower extremities to mid calf. NEUROLOGIC: No focal deficits. Results Result Diagram: 02/17/17 0600 02/17/17 0600 Results 24 hrs Laboratory Tests Test 02/16/17 11:43 02/16/17 12:41 02/16/17 17:20 02/16/17 18:20 Bedside Glucose 195 150 Creatine Kinase 63 Creatine Kinase Index 2.0 Creatinine Kinase MB (Mass) 1.23 Troponin I 0.676 *H Urine Color YELLOW Urine Clarity CLEAR Urine pH 5.0 Urine Specific [place] 1.010 Urine Ketones NEGATIVE Urine Nitrite NEGATIVE Urine Bilirubin NEGATIVE Urine Urobilinogen NEGATIVE Urine Leukocyte Esterase NEGATIVE Urine Microscopic RBC 0 Urine Microscopic WBC 0 Urine Bacteria FEW A Urine Hemoglobin 1+ H Urine Random Creatinine 45.90 Urine Random Sodium 64 Urine Glucose NEGATIVE Urine Total Protein 35.0 H Test 02/16/17 19:12 02/16/17 21:41 02/17/17 02:04 02/17/17 06:00 Creatine Kinase 67 Creatine Kinase Index 2.0 Creatinine Kinase MB (Mass) 1.31 Troponin I 0.713 *H Bedside Glucose 133 119 White Blood Count 5.7 # Red Blood Count 4.01 L Hemoglobin 10.9 L Hematocrit 32.5 L Mean Corpuscular Volume 81.0 L Mean Corpuscular Hemoglobin 27.2 L Mean Corpuscular Hemoglobin Concent 33.5 Red Cell Distribution Width 17.2 H Platelet Count 153 Mean Platelet Volume 11.1 H Neutrophils % 62.0 Lymphocytes % 25.7 Monocytes % 9.8 Eosinophils % 1.1 Basophils % 0.2 Nucleated Red Blood Cells % 0.0 Neutrophils # (Manual) 3.5 Lymphocytes # 1.5 Monocytes # 0.6 Eosinophils # 0.1 Basophils # 0.0 Nucleated Red Blood Cells # 0.0 Prothrombin Time 15.3 H Prothrombin Time Ratio 1.2 INR International Normalized Ratio 1.20 Activated Partial Thromboplast Time 41.1 H Sodium Level 144 Potassium Level 3.3 L Chloride Level 101 Carbon Dioxide Level 28 Anion Gap 18 H Blood Urea Nitrogen 27 H Creatinine 1.42 H Glucose Level 114 Calcium Level 9.4 Test 02/17/17 07:55 Bedside Glucose 126 Medications Medications Current Medications Ondansetron HCl (Zofran Inj) 4 mg Q6H PRN IV NAUSEA AND/OR VOMITING; Start at 11:30 Acetaminophen (Tylenol Tab) 650 mg Q6H PRN PO PAIN LEVEL 1-3 OR FEVER; Start at 11:30 Acetaminophen/ Hydrocodone Bitart ([place] (5/325)) 1 tab Q6H PRN PO MODERATE PAIN LEVEL 4-6; Start 02/15/17 at 11:30 Morphine Sulfate (morphine) 2 mg Q4H PRN IV SEVERE PAIN LEVEL 7-10; Start 02/15 at 11:30 Docusate Sodium (Colace) 100 mg Q12H PRN PO CONSTIPATION; Start 02/15/17 at 11: 30 Magnesium Hydroxide (Milk Of Mag) 30 ml DAILY PRN PO CONSTIPATION; Start at 11:30 Sodium Biphosphate/ Sodium Phosphate (Fleet Enema) 133 ml DAILY PRN [place] CONSTIPATION; Start 02/15/17 at 11:30 Heparin Sodium (Porcine) (Heparin (5000 Units/0.5 ml)) 5,000 unit Q12 SC Last administered on 02/16/17t 21:44; Admin Dose 5,000 UNIT; Start 02/15/17 at 21:00 Lorazepam 0.5 mg 0.5 mg Q6H PRN IV ANXIETY; Start 02/15/17 at 11:30 Levofloxacin/ Dextrose (Levaquin 750 Mg/ D5W 150 ml (Pmx)) 150 ml @ 100 mls/hr Q48H IVPB Last administered on 02/16/17 13:52; Admin Dose 100 MLS/HR; Start at 13:00 Hydralazine HCl (Apresoline) 10 mg Q6H PRN IV ELEVATED BLOOD PRESSURE; Start at 11:30 Nitroglycerin (Nitroglycerin (Sl Tab) 0.4 Mg) 1 tab Q5M PRN SL ANGINA; Start at 11:30 Aspirin (Aspirin) 81 mg DAILY PO Last administered on 02/17/17 07:56; Admin Dose 81 MG; Start 02/16/17 at 09:00 Carvedilol (Coreg) 3.125 mg BID PO Last administered on 02/17/17 09:17; Admin Dose 3.125 MG; Start 02/15/17 at 21:00 Folic Acid (Folic Acid) 1 mg DAILY PO Last administered on 02/17/17 07:57; Admin Dose 1 MG; Start 02/16/17 at 09:00 Insulin Glargine (Lantus) 20 unit QHS SC Last administered on 02/16/17 21:43; Admin Dose 20 UNIT; Start 02/15/17 at 21:00 Losartan Potassium (Cozaar) 50 mg DAILY PO Last administered on 02/17/17 09:17 ; Admin Dose 50 MG; Start 02/15/17 at 13:00 Atorvastatin Calcium (Lipitor) 20 mg DAILY@21 PO Last administered on 21:40; Admin Dose 20 MG; Start 02/15/17 at 21:00 Miscellaneous Information 1 ea NOTE XX ; Start 02/15/17 at 12:00 Glucose (Glutose) 15 gm Q15M PRN PO DECREASED GLUCOSE; Start 02/15/17 at 12:00 Glucose (Glutose) 22.5 gm Q15M PRN PO DECREASED GLUCOSE; Start 02/15/17 at 12: 00 Dextrose (D50w Syringe) 25 ml Q15M PRN IV DECREASED GLUCOSE; Start 02/15/17 at 12:00 Dextrose (D50w Syringe) 50 ml Q15M PRN IV DECREASED GLUCOSE; Start 02/15/17 at 12:00 Glucagon (Glucagen) 1 mg Q15M PRN IM DECREASED GLUCOSE; Start 02/15/17 at 12:00 Glucose (Glutose) 15 gm Q15M PRN BUCCAL DECREASED GLUCOSE; Start 02/15/17 at 12 :00 Diagnostic Test (Pha) (Accu-Chek) 1 ea 02 XX Last administered on 02/16/17 02: 21; Admin Dose 1 EA; Start 02/16/17 at 02:00 Clopidogrel Bisulfate (plaVIX) 75 mg DAILY PO Last administered on 02/17/17 07 :56; Admin Dose 75 MG; Start 02/15/17 at 14:27 Famotidine (Pepcid) 20 mg DAILY PO Last administered on 02/17/17 07:57; Admin Dose 20 MG; Start 02/15/17 at 21:00 GEORGINA HUTCHISON Feb 17, 2017 09:46
[2017-02-17] MEDS ORDERED: IODIXANOL LOCM 100 ML BTL ONE ×2 (10:20→11:39)
[2017-02-17] MEDS ORDERED: HEPARIN 1000 UNITS/ML 10 ML INJ ONE ×2 (10:20→12:41)
[2017-02-17] MEDS ORDERED: LIDOCAINE 1% (MDV) 20 ML INJ ONE (10:20)
[2017-02-17] MEDS ORDERED: NITROGLYCERIN (IC) 100 MCG/ML INJ ONE ×2 (10:21→12:16)
[2017-02-17] MEDS ORDERED: VERAPAMIL 5 MG INJ ONE (10:21)
[2017-02-17] MEDS ORDERED: MIDAZOLAM 1 MG/ML 2 ML INJ ONE (10:21)
[2017-02-17] MEDS ORDERED: FENTAnyl 50 MCG/ML VIAL ONE (10:21)
[2017-02-17] MEDS ORDERED: SOD CHLORIDE 0.9% 1,000 ML IV SCH (12:29)
--- NOTE | 2017-02-17 12:29 | CONS ---
Date/Time of Note Date/Time of Note DATE: 02/17/17 TIME: 12:25 Assessment/Plan Assessment/Plan Chief Complaint/Hosp Course IMP: 1.CHF-systolic acute on chronic. 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 LBBB 7.Nstemi-mild positive troponin. Now post-op s/p LHC with PTCA/stent to distal LMN due to 95% stenosis with 3,5 CHAMP REcc: -Tele monitor in icu -serial ecg's -Continue coreg/losartan -Continue lasix diuresis -strict I/O's -continue statin -Continue asa/plavix but will consider change to brilinta or effient - Problems: Consultation Date/Type/Reason Admit Date/Time Feb 15, 2017 at 10:26 Initial Consult Date 02/15/17 Type of Consultation: cardiology Reason for Consultation CHF/Nstemi Referring Provider: GEORGINA HUTCHISON Exam/Review of Systems Vital Signs Vitals Vital Signs Date Time Temp Pulse Resp B/P Pulse Ox O2 Delivery O2 Flow Rate FiO2 02/17/17 09:00 79 18 127/71 99 Nasal Cannula 2.0 02/17/17 08:00 98.0 02/17/17 02:19 31 Intake and Output 02/16/17 02/16/17 02/17/17 15:00 23:00 07:00 Intake Total 990 ml 220 ml 0 ml Output Total 775 ml 500 ml 600 ml Balance 215 ml -280 ml -600 ml Exam Review of Systems: CONSTITUTIONAL: No fevers, chills. PULMONARY: mild sob CARDIOVASCULAR: No chest pain/palpitations GASTROINTESTINAL: No nausea/vomiting. GENITOURINARY: No hematuria/dysuria. MUSCULOSKELETAL: No myagias/arthalgias. PSYCHIATRIC: The patient denies depression. NEUROLOGIC: No weakness Constitutional: alert, oriented Psych: no complaints Head: normocephalic ENMT: mucosa pink and moist Neck: jvd (9 cm water), supple Respiratory: clear to auscultation Cardiovascular: regular rate and rhythm Gastrointestinal: non-tender, soft Musculoskeletal: muscle tone (normal) Extremities: edema (none) Neurological: other (No focal deficits) Results Result Diagram: 02/17/17 0600 02/17/17 0600 Results 24 hrs Laboratory Tests Test 02/16/17 12:41 02/16/17 17:20 02/16/17 18:20 02/16/17 19:12 Creatine Kinase 63 67 Creatine Kinase Index 2.0 2.0 Creatinine Kinase MB (Mass) 1.23 1.31 Troponin I 0.676 *H 0.713 *H Bedside Glucose 150 Urine Color YELLOW Urine Clarity CLEAR Urine pH 5.0 Urine Specific [place] 1.010 Urine Ketones NEGATIVE Urine Nitrite NEGATIVE Urine Bilirubin NEGATIVE Urine Urobilinogen NEGATIVE Urine Leukocyte Esterase NEGATIVE Urine Microscopic RBC 0 Urine Microscopic WBC 0 Urine Bacteria FEW A Urine Hemoglobin 1+ H Urine Random Creatinine 45.90 Urine Random Sodium 64 Urine Glucose NEGATIVE Urine Total Protein 35.0 H Test 02/16/17 21:41 02/17/17 02:04 02/17/17 06:00 02/17/17 07:55 Bedside Glucose 133 119 126 White Blood Count 5.7 # Red Blood Count 4.01 L Hemoglobin 10.9 L Hematocrit 32.5 L Mean Corpuscular Volume 81.0 L Mean Corpuscular Hemoglobin 27.2 L Mean Corpuscular Hemoglobin Concent 33.5 Red Cell Distribution Width 17.2 H Platelet Count 153 Mean Platelet Volume 11.1 H Neutrophils % 62.0 Lymphocytes % 25.7 Monocytes % 9.8 Eosinophils % 1.1 Basophils % 0.2 Nucleated Red Blood Cells % 0.0 Neutrophils # (Manual) 3.5 Lymphocytes # 1.5 Monocytes # 0.6 Eosinophils # 0.1 Basophils # 0.0 Nucleated Red Blood Cells # 0.0 Prothrombin Time 15.3 H Prothrombin Time Ratio 1.2 INR International Normalized Ratio 1.20 Activated Partial Thromboplast Time 41.1 H Sodium Level 144 Potassium Level 3.3 L Chloride Level 101 Carbon Dioxide Level 28 Anion Gap 18 H Blood Urea Nitrogen 27 H Creatinine 1.42 H Glucose Level 114 Calcium Level 9.4 Medications Medications Current Medications Ondansetron HCl (Zofran Inj) 4 mg Q6H PRN IV NAUSEA AND/OR VOMITING; Start at 11:30 Acetaminophen (Tylenol Tab) 650 mg Q6H PRN PO PAIN LEVEL 1-3 OR FEVER; Start at 11:30 Acetaminophen/ Hydrocodone Bitart ([place] (5/325)) 1 tab Q6H PRN PO MODERATE PAIN LEVEL 4-6; Start 02/15/17 at 11:30 Morphine Sulfate (morphine) 2 mg Q4H PRN IV SEVERE PAIN LEVEL 7-10; Start 02/15 at 11:30 Docusate Sodium (Colace) 100 mg Q12H PRN PO CONSTIPATION; Start 02/15/17 at 11: 30 Magnesium Hydroxide (Milk Of Mag) 30 ml DAILY PRN PO CONSTIPATION; Start at 11:30 Sodium Biphosphate/ Sodium Phosphate (Fleet Enema) 133 ml DAILY PRN [place] CONSTIPATION; Start 02/15/17 at 11:30 Heparin Sodium (Porcine) (Heparin (5000 Units/0.5 ml)) 5,000 unit Q12 SC Last administered on 02/16/17 21:44; Admin Dose 5,000 UNIT; Start 02/15/17 at 21:00 Lorazepam 0.5 mg 0.5 mg Q6H PRN IV ANXIETY; Start 02/15/17 at 11:30 Levofloxacin/ Dextrose (Levaquin 750 Mg/ D5W 150 ml (Pmx)) 150 ml @ 100 mls/hr Q48H IVPB Last administered on 02/16/17 13:52; Admin Dose 100 MLS/HR; Start at 13:00 Hydralazine HCl (Apresoline) 10 mg Q6H PRN IV ELEVATED BLOOD PRESSURE; Start at 11:30 Nitroglycerin (Nitroglycerin (Sl Tab) 0.4 Mg) 1 tab Q5M PRN SL ANGINA; Start at 11:30 Aspirin (Aspirin) 81 mg DAILY PO Last administered on 02/17/17 07:56; Admin Dose 81 MG; Start 02/16/17 at 09:00 Carvedilol (Coreg) 3.125 mg BID PO Last administered on 02/17/17 09:17; Admin Dose 3.125 MG; Start 02/15/17 at 21:00 Folic Acid (Folic Acid) 1 mg DAILY PO Last administered on 02/17/17 07:57; Admin Dose 1 MG; Start 02/16/17 at 09:00 Insulin Glargine (Lantus) 20 unit QHS SC Last administered on 02/16/17 21:43; Admin Dose 20 UNIT; Start 02/15/17 at 21:00 Losartan Potassium (Cozaar) 50 mg DAILY PO Last administered on 02/17/17 09:17 ; Admin Dose 50 MG; Start 02/15/17 at 13:00 Atorvastatin Calcium (Lipitor) 20 mg DAILY@21 PO Last administered on 21:40; Admin Dose 20 MG; Start 02/15/17 at 21:00 Miscellaneous Information 1 ea NOTE XX ; Start 02/15/17 at 12:00 Glucose (Glutose) 15 gm Q15M PRN PO DECREASED GLUCOSE; Start 02/15/17 at 12:00 Glucose (Glutose) 22.5 gm Q15M PRN PO DECREASED GLUCOSE; Start 02/15/17 at 12: 00 Dextrose (D50w Syringe) 25 ml Q15M PRN IV DECREASED GLUCOSE; Start 02/15/17 at 12:00 Dextrose (D50w Syringe) 50 ml Q15M PRN IV DECREASED GLUCOSE; Start 02/15/17 at 12:00 Glucagon (Glucagen) 1 mg Q15M PRN IM DECREASED GLUCOSE; Start 02/15/17 at 12:00 Glucose (Glutose) 15 gm Q15M PRN BUCCAL DECREASED GLUCOSE; Start 02/15/17 at 12 :00 Diagnostic Test (Pha) (Accu-Chek) 1 ea 02 XX Last administered on 02/16/17 02: 21; Admin Dose 1 EA; Start 02/16/17 at 02:00 Clopidogrel Bisulfate (plaVIX) 75 mg DAILY PO Last administered on 02/17/17 07 :56; Admin Dose 75 MG; Start 02/15/17 at 14:27 Famotidine (Pepcid) 20 mg DAILY PO Last administered on 02/17/17 07:57; Admin Dose 20 MG; Start 02/15/17 at 21:00 Mupirocin (Bactroban) 1 applic BID TOP ; Start 02/17/17 at 10:00 ELEANOR ROLDAN Feb 17, 2017 12:29
[2017-02-17] MEDS ORDERED: OXYCODONE/ACETAMINOPHEN (5/325) TAB PO PRN (12:30)
[2017-02-17] MEDS ORDERED: ACETAMINOPHEN 325 MG TAB PO PRN (12:30)
[2017-02-17] MEDS ORDERED: ZOLPIDEM 5 MG TAB PO PRN (12:30)
[2017-02-17] MEDS ORDERED: morphine 2 MG INJ IV PRN (12:30)
--- NOTE | 2017-02-17 12:32 | SIPON ---
Date/Time of Note Date/Time of Note DATE: 02/17/17 TIME: 12:30 Operative Report Preoperative Diagnosis 1.Nstemi 2.CHF Postoperative Diagnosis 1.obstructive cad s/p PTCA/stent x 1 to distal LMN Operation/Procedure Performed 1.C 2.PTCA/stent x 1 with 3.5 x12mm CHAMP to distal LMN Anesthesia Type: moderate sedation Estimated Blood Loss: minimal Grafts/Implants: none Complications: no ELEANOR ROLDAN Feb 17, 2017 12:32
[2017-02-17] MEDS ORDERED: ASPIRIN 325 MG TAB ONE (12:39)
[2017-02-17] MEDS ORDERED: CLOPIDOGREL 300 MG TAB ONE (12:39)
[2017-02-17] MEDS: HEPARIN 5,000 UNIT/0.5 ML VIAL SC SCH ×2 (13:26→21:17)
[2017-02-17] MEDS: MUPIROCIN 2% 22 GM OINT TOP SCH ×2 (13:30→21:16)
--- NOTE | 2017-02-17 13:36 | PN ---
DATE: 02/17/2017 SUBJECTIVE DATA: The patient is stable this morning, on nasal cannula. Denies any chest pain. No shortness of breath. OBJECTIVE DATA: VITAL SIGNS: Temperature 98, pulse 79, blood pressure 127/71, O2 sat 96 percent on 2 L nasal cannula. NECK: Supple. No JVD or lymphadenopathy. HEART: S1, S2. No added sounds or murmurs. CHEST: Diminished air entry bilaterally. ABDOMEN: Soft, nontender. No guarding or rebound. EXTREMITIES: No cyanosis, clubbing or edema. NEUROLOGIC: Grossly intact. No focal deficits. LABORATORY AND DIAGNOSTIC DATA: White count 5.7, hemoglobin 10.9, platelets 153,000. BUN 27, creatinine 1.42. INR 1.2. Chest x-ray showed ongoing stable congestive cardiac failure, interval resolution of right basilar infiltrate. IMPRESSION: 1. Acute congestive cardiac failure in a patient with history of LV dysfunction. 2. Chronic kidney disease. 3. Status post hypoxemic respiratory failure secondary to congestive heart failure and likely healthcare-associated pneumonia. 4. Underlying history of coronary artery disease. 5. Diabetes mellitus. PLAN: 1. Continue current antibiotics of Levaquin. 2. Continue anticoagulation per primary team with Plavix. 3. Continue IV diuretics. 4. Pending cardiac catheterization. 5. DVT and GI prophylaxis. Dictated By: Jett Thakur MD /sha/ec /Document#: [id number]
[2017-02-17 13:37] LABS: BASOPHILS % 0.2 % (0.0-2.0); EOSINOPHILS # 0.1 10^3/ul (0.0-0.5); EOSINOPHILS % 1.2 % (0.0-7.0); HEMATOCRIT 31.8 % (42.0-52.0); HEMOGLOBIN 10.5 g/dl (14.0-18.0); LYMPHOCYTES # 1.8 10^3/ul (0.8-2.9); LYMPHOCYTES % 36.6 % (15.0-51.0); MEAN CORPUSCULAR HEMOGLOBIN 26.9 pg (29.0-33.0); MEAN CORPUSCULAR VOLUME 81.5 fl (82.0-101.0); MEAN PLATELET VOLUME 10.6 fl (7.4-10.4); MONOCYTE # 0.5 10^3/ul (0.3-0.9); MONOCYTES % 9.4 % (0.0-11.0); NEUTROPHILS % 50.1 % (39.0-77.0); PLATELET COUNT 151 10^3/UL (140-415); RED CELL DISTRIBUTION WIDTH 17.3 % (11.5-14.5); WHITE BLOOD COUNT 4.9 10^3/ul (4.8-10.8)
[2017-02-17 14:13] LABS: CALCIUM 9.4 mg/dl (8.4-10.2); CREATININE 1.54 mg/dl (0.61-1.24); POTASSIUM 3.7 mmol/L (3.5-5.1)
--- NOTE | 2017-02-17 17:06 | RADRPT ---
Vent Rate: 81 bpm RR Interval: 0 msec [place] Interval: 152 msec QRS Duration: 178 msec QT Interval: 476 msec QTC Interval: 552 msec P-R-T [place]: 44 - 9 - 138 degrees Normal sinus rhythm Left bundle branch block Abnormal ECG Electronically Signed By: Lui Justice [id number]
--- NOTE | 2017-02-17 17:13 | RADRPT ---
Vent Rate: 74 bpm RR Interval: [address] Interval: 170 msec QRS Duration: 160 msec QT Interval: 474 msec QTC Interval: 526 msec P-R-T [place]: 30 - -8 - 132 degrees Normal sinus rhythm Nonspecific intraventricular block Abnormal ECG Electronically Signed By: Lui Justice [id number]
[2017-02-17] MEDS: ATORVASTATIN 20 MG TAB PO SCH (21:18)
[2017-02-17] MEDS: INSULIN GLARGINE [LANtus] 3 ML PEN SC SCH (21:21)
[2017-02-18] VITALS (25 sets, daily range): BP systolic 100–126; BP diastolic 46–83; PULSE 61–96; RESP 13–32
[2017-02-18] MEDS: ACCU-CHEK XX SCH (00:40)
[2017-02-18] MEDS: LEVOTHYROXINE 88 MCG TAB PO SCH (06:36)
[2017-02-18] MEDS: FUROSEMIDE 40 MG INJ IV SCH (06:36)
--- NOTE | 2017-02-18 07:04 | CARRPT ---
DATE OF PROCEDURE: 02/17/2017 TYPE OF PROCEDURES: 1. Left heart catheterization. 2. Coronary angiography. 3. Percutaneous transluminal coronary angioplasty with placement of Atul drug-eluting stent times 1 to the distal left main with a 3.5 x 12 mm drug-eluting stent. 4. Moderate conscious sedation. ATTENDING PHYSICIAN: Baron Flores MD REFERRING PHYSICIAN: Dr. Maldonado from the Hospitalist Service. INDICATION: Non ST elevation myocardial infarction, congestive heart failure exacerbation, cardiomyopathy with decreased left ventricular ejection fraction. BRIEF HISTORY: Mr. Adams is an 81-year-old male with a history of hypertension, dyslipidemia, coronary artery disease, status post prior stent placement, aortic stenosis, status post TAVR, who presented with complaints of substernal chest pain and shortness of breath. Patient suffers from congestive heart failure exacerbation. Patient admitted to the ICU under medical therapy including BiPAP respiratory support. Had troponin cycles returning positive for non ST elevation myocardial infarction and has now been brought to cardiac laboratory development technician in order to assess possibility of significant cardiac event and chest pain and subsequent non ST elevation myocardial infarction, and congestive heart failure exacerbation. PROCEDURE: After informed consent obtained, the patient was taken to the cardiac catheterization lab where his right and left radial area was prepped and draped in sterile fashion. 2 percent lidocaine with evidence of right radial artery to achieve adequate local anesthesia. Using the modified Seldinger technique, the radial artery was cannulated and a 6-[place] arterial sheath was placed, a 6-[place] JL 3.5 catheter used for catheterization left main coronary ostium, contrast injection was used to assess the left coronary system were obtained. JL 3.5 guidewire and a JR 4 was used to cannulate the right coronary ostium and contrast injection used to assess the right coronary artery system was obtained. Subsequently at this time given the findings of significant obstructive lesions of the patient's left main with procedure the patient was given an additional 3000 units of heparin in order to achieve an adequate in addition to the 5000 units of heparin he had received during his radial cocktail with 2.5 mg of verapamil and 200 of nitroglycerin. Subsequently at this time, we attempted to cannulate the left main coronary ostium with Q 3.5 unsuccessfully, Q 3 unsuccessfully, and left unsuccessfully, and then finally we were able to successfully cannulate the periosteum with a JL 3. Subsequently at this time a 0.014 Bentson guidewire was passed distally, the lesion was pre- dilated with a 3.0 x 12 mm balloon up to 18-20 atmospheres x2. The balloon was removed. The lesion was stented with a 3.5 x 12 mm drug-eluting stent deployed at 18 atmospheres, post dilated with a stent delivery system up to 20 atmospheres. Follow-up angiogram obtained revealing mild wasting portion of the stent. Subsequently the stent delivery system was removed and a noncompliant balloon 4.0 x 12 mm was used to further post dilate the stent up to 22 atmospheres achieving full expansion. Subsequently, the balloon was removed. Follow up imaging were obtained revealing excellent from the stent. VINNY-3 flow throughout the vessel. No signs of complication including perforation or dissection. So at this time the initial guide and guidewires were removed. The patient was given additional 300 mg p.o. Plavix and 325 aspirin to complete procedure. There were no known complications. FINDINGS: 1. Coronary Angiography left main 3.5 mm vessel with a long stented zone with the mid distal portion of an in-stent restenosis of approximately 95 percent in the LAD was approximately patent stent. The remainder of the LAD is free of focal stenosis, occluded flush at its ostium. The right coronary artery approximately is 3 mm vessel and has a widely patent stent at the ostium of the PDA. The patient has a 70 to 80 percent stenosis and diffuse disease throughout the patient's LAD PDA thereafter. 2. Prior to PTCA and stent placement the patient had a 95 percent stenosis in the distal left main. Post PTCA and stent placed patient had no evidence of stenosis. 3. VINNY-3 flow. The vessel and no signs of complication including perforation dissection. TOTAL FLUOROSCOPY TIME: 40 minutes. TOTAL CONTRAST: 125 cc. FINDINGS: 1. Multivessel obstructive coronary disease with the patient's culprit for non ST elevation myocardial infarction being a high- grade distal left main in-stent restenosis segment status post successful PTCA and stent placement times 1 with drug-eluting stent 3.5 x 12 mm. RECOMMENDATIONS: In light of procedure findings at this time: 1. Maintain patient on aspirin 325 mg 1 tab p.o. daily indefinitely. 2. We will continue Plavix at this time. We will give consideration to possible change to Brilinta as the patient could be a nonresponder to Plavix. He has had subsequent restenosis at a rapid rate. 3. Maximize medical management. 4. Aggressive . 5. Patient admitted to the ICU for postoperative observation and continue managing symptoms with possible discharge the following day. Dictated By: Baron Flores MD /sha/[place] /Document#: [id number] ; [facility]
[2017-02-18 07:08] LABS: BASOPHILS % 0.2 % (0.0-2.0); EOSINOPHILS # 0.1 10^3/ul (0.0-0.5); EOSINOPHILS % 1.7 % (0.0-7.0); HEMATOCRIT 29.8 % (42.0-52.0); HEMOGLOBIN 9.8 g/dl (14.0-18.0); LYMPHOCYTES # 1.4 10^3/ul (0.8-2.9); LYMPHOCYTES % 29.3 % (15.0-51.0); MEAN CORPUSCULAR HEMOGLOBIN 26.8 pg (29.0-33.0); MEAN CORPUSCULAR HGB CONC 32.9 g/dl (32.0-37.0); MEAN CORPUSCULAR VOLUME 81.6 fl (82.0-101.0); MONOCYTE # 0.4 10^3/ul (0.3-0.9); MONOCYTES % 9.1 % (0.0-11.0); NEUTROPHILS % 58.2 % (39.0-77.0); PLATELET COUNT 152 10^3/UL (140-415); RED BLOOD COUNT 3.65 10^6/ul (4.70-6.10); RED CELL DISTRIBUTION WIDTH 17.2 % (11.5-14.5); WHITE BLOOD COUNT 4.7 10^3/ul (4.8-10.8)
[2017-02-18] MEDS: INSULIN ASPART [NOVOLOG] 3 ML PEN SC SCH ×4 (07:35→21:20)
[2017-02-18 07:38] LABS: CREATININE 1.53 mg/dl (0.61-1.24); POTASSIUM 3.6 mmol/L (3.5-5.1)
--- NOTE | 2017-02-18 08:02 | PN ---
DATE: 02/18/2017 SUBJECTIVE DATA: The patient yesterday had a cardiac cath with PCI and stent placement. No other events noted. The patient has good urinary output. OBJECTIVE DATA: VITAL SIGNS: Blood pressure 120/66, respirations 27, pulse 96, temperature 97.6. HEENT: Head is normocephalic. NECK: Supple. HEART: Regular rate. LUNGS: Show diminished breath sounds at the base. ABDOMEN: Soft, nontender to palpation. No rebound or guarding. EXTREMITIES: Negative for clubbing, cyanosis. No edema. DERMATOLOGIC: Clean. No rashes. MUSCULOSKELETAL: No joint effusion. NEUROLOGIC: No change in exam. MEDICATIONS: Reviewed. LABORATORY AND DIAGNOSTIC DATA: Shows sodium 143, potassium 3.7, BUN 26, creatinine 1.54. White count 4.7, hemoglobin 9.8, crit 29.8, platelet count 152. ASSESSMENT AND PLAN: 1. Nonoliguric acute kidney injury on top of chronic kidney disease with previous baseline creatinine 1.4 mg/dL. Etiology of acute kidney injury is secondary to hemodynamics. The patient is status post cardiac cath yesterday with 126 cc of dye used. Renal function is mildly declined today. We will continue to monitor closely for any signs of contrast-associated nephropathy. Would otherwise continue supportive care. Renally dose medications. Avoid nephrotoxins. 2. Hypernatremia, resolved. 3. Anemia. Monitor H and H levels. 4. Mineral bone disorder. Continue to monitor calcium and phosphorus levels. 5. Coronary artery disease, status post percutaneous coronary intervention. Continue current medical management. 6. Acute respiratory failure secondary to congestive heart failure. Continue to monitor closely. 7. Aortic stenosis, status post aortic valve replacement. 8. Diabetes. Continue Accu-Cheks and insulin sliding scale. 9. Hypothyroidism. Continue Synthroid. Dictated By: Jean Carlos Fischer DO /sha/dc /Document#: [id number]
[2017-02-18] MEDS: FOLIC ACID 1 MG TAB PO SCH (09:04)
[2017-02-18] MEDS: FAMOTIDINE 20 MG TAB PO SCH (09:04)
[2017-02-18] MEDS: ASPIRIN (EC) 81 MG TAB PO SCH (09:05)
[2017-02-18] MEDS: MUPIROCIN 2% 22 GM OINT TOP SCH ×2 (09:05→21:15)
[2017-02-18] MEDS: CLOPIDOGREL 75 MG TAB PO SCH (09:05)
[2017-02-18] MEDS: HEPARIN 5,000 UNIT/0.5 ML VIAL SC SCH ×2 (09:15→21:22)
--- NOTE | 2017-02-18 10:04 | PN ---
Date/Time of Note Date/Time of Note DATE: 02/18/17 TIME: 10:00 Assessment/Plan VTE Prophylaxis VTE Prophylaxis Intervention: heparin Lines/Catheters IV [facility]ter Type (from [facility]): Peripheral IV Urinary Cath still in place: No Assessment/Plan Chief Complaint/Hosp Course ASSESSMENT AND PLAN: An 81-year-old male, prior history of coronary artery disease (CAD) with 4 stents, aortic stenosis with valve replacement in August 2016, hypertension, high cholesterol, hypothyroidism, diabetes, who presents with shortness of breath with signs of congestive heart failure (CHF) exacerbation and left bundle branch block (LBBB) seen on EKG, and non-ST elevation ND, status post stent placement this admission. 1. Shortness of breath-slowly improving. Symptoms are secondary to acute decompensated heart failure, as well as non-ST elevation ND. The patient has a known history of congestive heart failure (CHF) in the past with ejection fraction around 30-35 percent range. Also found with elevated troponin second and third, and awaiting left heart cath for later this morning. -Continue Lasix intravenous (IV) 40 mg b.i.d., keep head of bed greater than 30 degrees. -Monitor ins and outs. morphine p.r.n., nitroglycerin p.r.n., and oxygen supplementation as well. -Follow-up findings from left heart cath and post procedure recommendations from cardiology team - f/u physical therapy (PT) consult as well. - Follow up repeat echocardiogram. - Holding BALTA inhibitor for now given the patient's mild renal insufficiency. 2. Non-ST elevation ND: Status post stent placement to distal left main -Continue aspirin and Plavix, follow-up cardiology recommendations, continue current blood pressure medicines, statin 3. History of coronary artery disease (CAD) with prior history of stent times 4. -See #2 4. History of aortic stenosis status post aortic valve replacement earlier this year [facility]. - Again, continue current cardiac medications. Follow Cardiology recommendations. 5. Renal insufficiency-creatinine at 1.5 today. Baseline appears 1.4 appreciate renal consult. - Monitor ins and outs, follow-up renal recommendations - Follow BMP in the morning. -Holding BALTA inhibitor for now. - Continue other cardiac medications. 6. Diabetes. Continue on sliding scale insulin, home Lantus 7. Hypothyroidism. Followup thyroid panel. Continue levothyroxine. 8. High cholesterol-monitor 9. Gastrointestinal (GI) prophylaxis with famotidine. 10. Deep venous thrombosis (DVT) prophylaxis. Heparin subcutaneous. Critical care time spent on patient care today equals 40 minutes. Problems: Subjective 24 Hr Interval Summary Free Text/Dictation Patient denies any present chest pain. No shortness of breath. Had left heart cath with cardiac stent placed yesterday. Exam/Review of Systems Vital Signs Vitals Vital Signs Date Time Temp Pulse Resp B/P Pulse Ox O2 Delivery O2 Flow Rate FiO2 02/18/17 08:00 98.7 79 13 123/77 99 Room Air 02/18/17 02:55 2.0 27 Intake and Output 02/17/17 02/17/17 02/18/17 15:00 23:00 07:00 Intake Total 290 ml 795 ml 445 ml Output Total 550 ml 200 ml 550 ml Balance -260 ml 595 ml -105 ml Exam GENERAL: Sitting in chair, no acute distress HEENT: Pupils equal, round, react to light. Extraocular muscles intact. NECK: Supple. No thyromegaly. LUNGS: less crackles heard bilateral bases. No wheezes. CARDIOVASCULAR: S1, S2 heard. No rubs, gallops. ABDOMEN: Soft, nontender, nondistended. Normal bowel sounds. No rebound or guarding. MUSCULOSKELETAL: Trace pitting edema bilateral lower extremities to mid calf. NEUROLOGIC: No focal deficits. Results Result Diagram: 02/18/17 0645 02/18/17 0645 Results 24 hrs Laboratory Tests Test 02/17/17 13:17 02/17/17 13:25 02/17/17 17:32 02/17/17 21:20 Bedside Glucose 109 124 161 White Blood Count 4.9 Red Blood Count 3.90 L Hemoglobin 10.5 L Hematocrit 31.8 L Mean Corpuscular Volume 81.5 L Mean Corpuscular Hemoglobin 26.9 L Mean Corpuscular Hemoglobin Concent 33.0 Red Cell Distribution Width 17.3 H Platelet Count 151 Mean Platelet Volume 10.6 H Neutrophils % 50.1 Lymphocytes % 36.6 Monocytes % 9.4 Eosinophils % 1.2 Basophils % 0.2 Nucleated Red Blood Cells % 0.0 Neutrophils # (Manual) 2.5 Lymphocytes # 1.8 Monocytes # 0.5 Eosinophils # 0.1 Basophils # 0.0 Nucleated Red Blood Cells # 0.0 Sodium Level 143 Potassium Level 3.7 Chloride Level 99 Carbon Dioxide Level 28 Anion Gap 20 H Blood Urea Nitrogen 26 H Creatinine 1.54 H Glucose Level 112 Calcium Level 9.4 Test 02/18/17 06:45 02/18/17 08:06 White Blood Count 4.7 L Red Blood Count 3.65 L Hemoglobin 9.8 L Hematocrit 29.8 L Mean Corpuscular Volume 81.6 L Mean Corpuscular Hemoglobin 26.8 L Mean Corpuscular Hemoglobin Concent 32.9 Red Cell Distribution Width 17.2 H Platelet Count 152 Mean Platelet Volume 11.0 H Neutrophils % 58.2 Lymphocytes % 29.3 Monocytes % 9.1 Eosinophils % 1.7 Basophils % 0.2 Nucleated Red Blood Cells % 0.0 Neutrophils # (Manual) 2.7 Lymphocytes # 1.4 Monocytes # 0.4 Eosinophils # 0.1 Basophils # 0.0 Nucleated Red Blood Cells # 0.0 Sodium Level 142 Potassium Level 3.6 Chloride Level 107 Carbon Dioxide Level 26 Anion Gap 13 # Blood Urea Nitrogen 33 H Creatinine 1.53 H Glucose Level 90 Calcium Level 9.0 Bedside Glucose 95 Medications Medications Current Medications Ondansetron HCl (Zofran Inj) 4 mg Q6H PRN IV NAUSEA AND/OR VOMITING; Start at 11:30 Acetaminophen (Tylenol Tab) 650 mg Q6H PRN PO PAIN LEVEL 1-3 OR FEVER; Start at 11:30 Acetaminophen/ Hydrocodone Bitart ([place] (5/325)) 1 tab Q6H PRN PO MODERATE PAIN LEVEL 4-6; Start 02/15/17 at 11:30 Morphine Sulfate (morphine) 2 mg Q4H PRN IV SEVERE PAIN LEVEL 7-10; Start 02/15 at 11:30 Docusate Sodium (Colace) 100 mg Q12H PRN PO CONSTIPATION; Start 02/15/17 at 11: 30 Magnesium Hydroxide (Milk Of Mag) 30 ml DAILY PRN PO CONSTIPATION; Start at 11:30 Sodium Biphosphate/ Sodium Phosphate (Fleet Enema) 133 ml DAILY PRN [place] CONSTIPATION; Start 02/15/17 at 11:30 Heparin Sodium (Porcine) (Heparin (5000 Units/0.5 ml)) 5,000 unit Q12 SC Last administered on 02/18/17t 09:15; Admin Dose 5,000 UNIT; Start 02/15/17 at 21:00 Lorazepam 0.5 mg 0.5 mg Q6H PRN IV ANXIETY; Start 02/15/17 at 11:30 Levofloxacin/ Dextrose (Levaquin 750 Mg/ D5W 150 ml (Pmx)) 150 ml @ 100 mls/hr Q48H IVPB Last administered on 02/16/17 13:52; Admin Dose 100 MLS/HR; Start at 13:00 Hydralazine HCl (Apresoline) 10 mg Q6H PRN IV ELEVATED BLOOD PRESSURE; Start at 11:30 Nitroglycerin (Nitroglycerin (Sl Tab) 0.4 Mg) 1 tab Q5M PRN SL ANGINA; Start at 11:30 Carvedilol (Coreg) 3.125 mg BID PO Last administered on 02/18/17 09:05; Admin Dose 3.125 MG; Start 02/15/17 at 21:00 Folic Acid (Folic Acid) 1 mg DAILY PO Last administered on 02/18/17 09:04; Admin Dose 1 MG; Start 02/16/17 at 09:00 Insulin Glargine (Lantus) 20 unit QHS SC Last administered on 02/17/17 21:21; Admin Dose 20 UNIT; Start 02/15/17 at 21:00 Losartan Potassium (Cozaar) 50 mg DAILY PO Last administered on 02/17/17 09:17 ; Admin Dose 50 MG; Start 02/15/17 at 13:00; Status Future Hold Atorvastatin Calcium (Lipitor) 20 mg DAILY@21 PO Last administered on 21:18; Admin Dose 20 MG; Start 02/15/17 at 21:00 Miscellaneous Information 1 ea NOTE XX ; Start 02/15/17 at 12:00 Glucose (Glutose) 15 gm Q15M PRN PO DECREASED GLUCOSE; Start 02/15/17 at 12:00 Glucose (Glutose) 22.5 gm Q15M PRN PO DECREASED GLUCOSE; Start 02/15/17 at 12: 00 Dextrose (D50w Syringe) 25 ml Q15M PRN IV DECREASED GLUCOSE; Start 02/15/17 at 12:00 Dextrose (D50w Syringe) 50 ml Q15M PRN IV DECREASED GLUCOSE; Start 02/15/17 at 12:00 Glucagon (Glucagen) 1 mg Q15M PRN IM DECREASED GLUCOSE; Start 02/15/17 at 12:00 Glucose (Glutose) 15 gm Q15M PRN BUCCAL DECREASED GLUCOSE; Start 02/15/17 at 12 :00 Diagnostic Test (Pha) (Accu-Chek) 1 ea 02 XX Last administered on 02/16/17 02: 21; Admin Dose 1 EA; Start 02/16/17 at 02:00 Clopidogrel Bisulfate (plaVIX) 75 mg DAILY PO Last administered on 02/18/17 09: 05; Admin Dose 75 MG; Start 02/15/17 at 14:27 Famotidine (Pepcid) 20 mg DAILY PO Last administered on 02/18/17 09:04; Admin Dose 20 MG; Start 02/15/17 at 21:00 Mupirocin (Bactroban) 1 applic BID TOP Last administered on 02/18/17 09:05; Admin Dose 1 APPLIC; Start 02/17/17 at 10:00 Aspirin (Halfprin) 81 mg DAILY PO Last administered on 02/18/17 09:05; Admin Dose 81 MG; Start 02/18/17 at 09:00 Acetaminophen (Tylenol Tab) 650 mg Q4H PRN PO NON-CARDIAC PAIN LEVEL 1-3; Start 02/17/17 at 12:30 Oxycodone/ Acetaminophen (Percocet (5/ 325)) 1 tab Q4H PRN PO REPORTED NON- CARDIAC PAIN 4-7; Start 02/17/17 at 12:30 Morphine Sulfate (morphine) 1 mg Q1H PRN IV PAIN NOT RELIEVED BY OTHERS; Start 02/17/17 at 12:30 GEORGINA HUTCHISON Feb 18, 2017 10:04
--- NOTE | 2017-02-18 10:20 | CONS ---
Date/Time of Note Date/Time of Note DATE: 02/18/17 TIME: 10:19 Consult Date/Type/Reason Admit Date/Time Feb 15, 2017 at 10:26 Type of Consultation: Pulmonary Ordering Provider: GEORGINA HUTCHISON Subjective Status post PCI with stent placement. Comfortable this morning denies any chest pain shortness of breath or palpitations. Objective Vital Signs Date Time Temp Pulse Resp B/P Pulse Ox O2 Delivery O2 Flow Rate FiO2 02/18/17 08:00 98.7 79 13 123/77 99 Room Air 02/18/17 02:55 2.0 27 Intake and Output 02/17/17 02/17/17 02/18/17 15:00 23:00 07:00 Intake Total 290 ml 795 ml 445 ml Output Total 550 ml 200 ml 550 ml Balance -260 ml 595 ml -105 ml Exam PHYSICAL EXAMINATION: GENERAL: On examination, elderly appearing gentleman, comfortable at rest, in no acute distress. VITAL SIGNS: NECK: JVD is elevated. No lymphadenopathy. CARDIAC: S1, S2. A 2/6 systolic ejection murmur. CHEST: Diminished air entry bilaterally. No rales. ABDOMEN: Soft, nontender. No guarding or rebound. EXTREMITIES: No clubbing, cyanosis or edema. NEUROLOGIC: Generalized weakness. Results/Medications Result Diagram: 02/18/17 0645 02/18/17 0645 Results 24 hrs Laboratory Tests Test 02/17/17 13:17 02/17/17 13:25 02/17/17 17:32 02/17/17 21:20 Bedside Glucose 109 124 161 White Blood Count 4.9 Red Blood Count 3.90 L Hemoglobin 10.5 L Hematocrit 31.8 L Mean Corpuscular Volume 81.5 L Mean Corpuscular Hemoglobin 26.9 L Mean Corpuscular Hemoglobin Concent 33.0 Red Cell Distribution Width 17.3 H Platelet Count 151 Mean Platelet Volume 10.6 H Neutrophils % 50.1 Lymphocytes % 36.6 Monocytes % 9.4 Eosinophils % 1.2 Basophils % 0.2 Nucleated Red Blood Cells % 0.0 Neutrophils # (Manual) 2.5 Lymphocytes # 1.8 Monocytes # 0.5 Eosinophils # 0.1 Basophils # 0.0 Nucleated Red Blood Cells # 0.0 Sodium Level 143 Potassium Level 3.7 Chloride Level 99 Carbon Dioxide Level 28 Anion Gap 20 H Blood Urea Nitrogen 26 H Creatinine 1.54 H Glucose Level 112 Calcium Level 9.4 Test 02/18/17 06:45 02/18/17 08:06 White Blood Count 4.7 L Red Blood Count 3.65 L Hemoglobin 9.8 L Hematocrit 29.8 L Mean Corpuscular Volume 81.6 L Mean Corpuscular Hemoglobin 26.8 L Mean Corpuscular Hemoglobin Concent 32.9 Red Cell Distribution Width 17.2 H Platelet Count 152 Mean Platelet Volume 11.0 H Neutrophils % 58.2 Lymphocytes % 29.3 Monocytes % 9.1 Eosinophils % 1.7 Basophils % 0.2 Nucleated Red Blood Cells % 0.0 Neutrophils # (Manual) 2.7 Lymphocytes # 1.4 Monocytes # 0.4 Eosinophils # 0.1 Basophils # 0.0 Nucleated Red Blood Cells # 0.0 Sodium Level 142 Potassium Level 3.6 Chloride Level 107 Carbon Dioxide Level 26 Anion Gap 13 # Blood Urea Nitrogen 33 H Creatinine 1.53 H Glucose Level 90 Calcium Level 9.0 Bedside Glucose 95 Medications Current Medications Ondansetron HCl (Zofran Inj) 4 mg Q6H PRN IV NAUSEA AND/OR VOMITING; Start at 11:30 Acetaminophen (Tylenol Tab) 650 mg Q6H PRN PO PAIN LEVEL 1-3 OR FEVER; Start at 11:30 Acetaminophen/ Hydrocodone Bitart ([place] (5/325)) 1 tab Q6H PRN PO MODERATE PAIN LEVEL 4-6; Start 02/15/17 at 11:30 Morphine Sulfate (morphine) 2 mg Q4H PRN IV SEVERE PAIN LEVEL 7-10; Start 02/15 at 11:30 Docusate Sodium (Colace) 100 mg Q12H PRN PO CONSTIPATION; Start 02/15/17 at 11: 30 Magnesium Hydroxide (Milk Of Mag) 30 ml DAILY PRN PO CONSTIPATION; Start at 11:30 Sodium Biphosphate/ Sodium Phosphate (Fleet Enema) 133 ml DAILY PRN [place] CONSTIPATION; Start 02/15/17 at 11:30 Heparin Sodium (Porcine) (Heparin (5000 Units/0.5 ml)) 5,000 unit Q12 SC Last administered on 02/18/17t 09:15; Admin Dose 5,000 UNIT; Start 02/15/17 at 21:00 Lorazepam 0.5 mg 0.5 mg Q6H PRN IV ANXIETY; Start 02/15/17 at 11:30 Levofloxacin/ Dextrose (Levaquin 750 Mg/ D5W 150 ml (Pmx)) 150 ml @ 100 mls/hr Q48H IVPB Last administered on 02/16/17 13:52; Admin Dose 100 MLS/HR; Start at 13:00 Hydralazine HCl (Apresoline) 10 mg Q6H PRN IV ELEVATED BLOOD PRESSURE; Start at 11:30 Nitroglycerin (Nitroglycerin (Sl Tab) 0.4 Mg) 1 tab Q5M PRN SL ANGINA; Start at 11:30 Carvedilol (Coreg) 3.125 mg BID PO Last administered on 02/18/17 09:05; Admin Dose 3.125 MG; Start 02/15/17 at 21:00 Folic Acid (Folic Acid) 1 mg DAILY PO Last administered on 02/18/17 09:04; Admin Dose 1 MG; Start 02/16/17 at 09:00 Insulin Glargine (Lantus) 20 unit QHS SC Last administered on 02/17/17 21:21; Admin Dose 20 UNIT; Start 02/15/17 at 21:00 Losartan Potassium (Cozaar) 50 mg DAILY PO Last administered on 02/17/17 09:17 ; Admin Dose 50 MG; Start 02/15/17 at 13:00; Status Future Hold Atorvastatin Calcium (Lipitor) 20 mg DAILY@21 PO Last administered on 21:18; Admin Dose 20 MG; Start 02/15/17 at 21:00 Miscellaneous Information 1 ea NOTE XX ; Start 02/15/17 at 12:00 Glucose (Glutose) 15 gm Q15M PRN PO DECREASED GLUCOSE; Start 02/15/17 at 12:00 Glucose (Glutose) 22.5 gm Q15M PRN PO DECREASED GLUCOSE; Start 02/15/17 at 12: 00 Dextrose (D50w Syringe) 25 ml Q15M PRN IV DECREASED GLUCOSE; Start 02/15/17 at 12:00 Dextrose (D50w Syringe) 50 ml Q15M PRN IV DECREASED GLUCOSE; Start 02/15/17 at 12:00 Glucagon (Glucagen) 1 mg Q15M PRN IM DECREASED GLUCOSE; Start 02/15/17 at 12:00 Glucose (Glutose) 15 gm Q15M PRN BUCCAL DECREASED GLUCOSE; Start 02/15/17 at 12 :00 Diagnostic Test (Pha) (Accu-Chek) 1 ea 02 XX Last administered on 02/16/17 02: 21; Admin Dose 1 EA; Start 02/16/17 at 02:00 Clopidogrel Bisulfate (plaVIX) 75 mg DAILY PO Last administered on 02/18/17 09: 05; Admin Dose 75 MG; Start 02/15/17 at 14:27 Famotidine (Pepcid) 20 mg DAILY PO Last administered on 02/18/17 09:04; Admin Dose 20 MG; Start 02/15/17 at 21:00 Mupirocin (Bactroban) 1 applic BID TOP Last administered on 02/18/17 09:05; Admin Dose 1 APPLIC; Start 02/17/17 at 10:00 Aspirin (Halfprin) 81 mg DAILY PO Last administered on 02/18/17 09:05; Admin Dose 81 MG; Start 02/18/17 at 09:00 Acetaminophen (Tylenol Tab) 650 mg Q4H PRN PO NON-CARDIAC PAIN LEVEL 1-3; Start 02/17/17 at 12:30 Oxycodone/ Acetaminophen (Percocet (5/ 325)) 1 tab Q4H PRN PO REPORTED NON- CARDIAC PAIN 4-7; Start 02/17/17 at 12:30 Morphine Sulfate (morphine) 1 mg Q1H PRN IV PAIN NOT RELIEVED BY OTHERS; Start 02/17/17 at 12:30 Assessment/Plan Chief Complaint/Hosp Course IMPRESSION: 1. Hypoxemic respiratory failure likely secondary to acute on chronic left ventricular heart failure.Clinically improved with diuretics. 2. Possible community-acquired pneumonia. 3. History of aortic valve replacement status post transcatheter aortic valve replacement. Status post PCI with stent placement. 4. Possible pancreatitis given elevated lipase. However clinically stable. PLAN: 1. Continue gentle diuretics. 2. Continue supplemental O2. 3. Ambulate as tolerated 4. Cardiac recommendations 5. DVT and GI prophylaxis. Discharge planning okay from pulmonary standpoint follow-up with me in the office Problems: YOBANY PALUMBO MD, FCCP Feb 18, 2017 10:20
--- NOTE | 2017-02-18 11:27 | CONS ---
Date/Time of Note Date/Time of Note DATE: 02/18/17 TIME: 11:22 Assessment/Plan Assessment/Plan Chief Complaint/Hosp Course IMP: 1.CHF-systolic acute on chronic. 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 LBBB 7.Nstemi-mild positive troponin. Now post-op s/p LHC with PTCA/stent to distal LMN due to 95% stenosis with 3,5 CHAMP REcc: -Transfer to tele -Continue coreg/losartan -Continue lasix diuresis -strict I/O's -continue statin -Continue asa and will change plavix to brilinta - Problems: Consultation Date/Type/Reason Admit Date/Time Feb 15, 2017 at 10:26 Initial Consult Date 02/15/17 Type of Consultation: cardiology Reason for Consultation nstemi/chf Referring Provider: GEORGINA HUTCHISON Exam/Review of Systems Vital Signs Vitals Vital Signs Date Time Temp Pulse Resp B/P Pulse Ox O2 Delivery O2 Flow Rate FiO2 02/18/17 08:00 77 02/18/17 08:00 98.7 13 123/77 99 Room Air 02/18/17 02:55 2.0 27 Intake and Output 02/17/17 02/17/17 02/18/17 15:00 23:00 07:00 Intake Total 290 ml 795 ml 445 ml Output Total 550 ml 200 ml 550 ml Balance -260 ml 595 ml -105 ml Exam Review of Systems: CONSTITUTIONAL: No fevers, chills. PULMONARY: No sob CARDIOVASCULAR: No chest pain/palpitations GASTROINTESTINAL: No nausea/vomiting. GENITOURINARY: No hematuria/dysuria. MUSCULOSKELETAL: No myagias/arthalgias. PSYCHIATRIC: The patient denies depression. NEUROLOGIC: No weakness Constitutional: alert Psych: no complaints Head: normocephalic Neck: jvd (8-9 cm water), supple Respiratory: diminished breath sounds (at bases/B) Cardiovascular: regular rate and rhythm Gastrointestinal: non-tender, soft Musculoskeletal: muscle tone (normal) Extremities: edema (none) Neurological: other (No focal deficits) Results Result Diagram: 02/18/17 0645 02/18/17 0645 Results 24 hrs Laboratory Tests Test 02/17/17 13:17 02/17/17 13:25 02/17/17 17:32 02/17/17 21:20 Bedside Glucose 109 124 161 White Blood Count 4.9 Red Blood Count 3.90 L Hemoglobin 10.5 L Hematocrit 31.8 L Mean Corpuscular Volume 81.5 L Mean Corpuscular Hemoglobin 26.9 L Mean Corpuscular Hemoglobin Concent 33.0 Red Cell Distribution Width 17.3 H Platelet Count 151 Mean Platelet Volume 10.6 H Neutrophils % 50.1 Lymphocytes % 36.6 Monocytes % 9.4 Eosinophils % 1.2 Basophils % 0.2 Nucleated Red Blood Cells % 0.0 Neutrophils # (Manual) 2.5 Lymphocytes # 1.8 Monocytes # 0.5 Eosinophils # 0.1 Basophils # 0.0 Nucleated Red Blood Cells # 0.0 Sodium Level 143 Potassium Level 3.7 Chloride Level 99 Carbon Dioxide Level 28 Anion Gap 20 H Blood Urea Nitrogen 26 H Creatinine 1.54 H Glucose Level 112 Calcium Level 9.4 Test 02/18/17 06:45 02/18/17 08:06 White Blood Count 4.7 L Red Blood Count 3.65 L Hemoglobin 9.8 L Hematocrit 29.8 L Mean Corpuscular Volume 81.6 L Mean Corpuscular Hemoglobin 26.8 L Mean Corpuscular Hemoglobin Concent 32.9 Red Cell Distribution Width 17.2 H Platelet Count 152 Mean Platelet Volume 11.0 H Neutrophils % 58.2 Lymphocytes % 29.3 Monocytes % 9.1 Eosinophils % 1.7 Basophils % 0.2 Nucleated Red Blood Cells % 0.0 Neutrophils # (Manual) 2.7 Lymphocytes # 1.4 Monocytes # 0.4 Eosinophils # 0.1 Basophils # 0.0 Nucleated Red Blood Cells # 0.0 Sodium Level 142 Potassium Level 3.6 Chloride Level 107 Carbon Dioxide Level 26 Anion Gap 13 # Blood Urea Nitrogen 33 H Creatinine 1.53 H Glucose Level 90 Calcium Level 9.0 Bedside Glucose 95 Medications Medications Current Medications Ondansetron HCl (Zofran Inj) 4 mg Q6H PRN IV NAUSEA AND/OR VOMITING; Start at 11:30 Acetaminophen (Tylenol Tab) 650 mg Q6H PRN PO PAIN LEVEL 1-3 OR FEVER; Start at 11:30 Acetaminophen/ Hydrocodone Bitart ([place] (5/325)) 1 tab Q6H PRN PO MODERATE PAIN LEVEL 4-6; Start 02/15/17 at 11:30 Morphine Sulfate (morphine) 2 mg Q4H PRN IV SEVERE PAIN LEVEL 7-10; Start 02/15 at 11:30 Docusate Sodium (Colace) 100 mg Q12H PRN PO CONSTIPATION; Start 02/15/17 at 11: 30 Magnesium Hydroxide (Milk Of Mag) 30 ml DAILY PRN PO CONSTIPATION; Start at 11:30 Sodium Biphosphate/ Sodium Phosphate (Fleet Enema) 133 ml DAILY PRN [place] CONSTIPATION; Start 02/15/17 at 11:30 Heparin Sodium (Porcine) (Heparin (5000 Units/0.5 ml)) 5,000 unit Q12 SC Last administered on 02/18/17 09:15; Admin Dose 5,000 UNIT; Start 02/15/17 at 21:00 Lorazepam 0.5 mg 0.5 mg Q6H PRN IV ANXIETY; Start 02/15/17 at 11:30 Levofloxacin/ Dextrose (Levaquin 750 Mg/ D5W 150 ml (Pmx)) 150 ml @ 100 mls/hr Q48H IVPB Last administered on 02/16/17 13:52; Admin Dose 100 MLS/HR; Start at 13:00 Hydralazine HCl (Apresoline) 10 mg Q6H PRN IV ELEVATED BLOOD PRESSURE; Start at 11:30 Nitroglycerin (Nitroglycerin (Sl Tab) 0.4 Mg) 1 tab Q5M PRN SL ANGINA; Start at 11:30 Carvedilol (Coreg) 3.125 mg BID PO Last administered on 02/18/17 09:05; Admin Dose 3.125 MG; Start 02/15/17 at 21:00 Folic Acid (Folic Acid) 1 mg DAILY PO Last administered on 02/18/17 09:04; Admin Dose 1 MG; Start 02/16/17 at 09:00 Insulin Glargine (Lantus) 20 unit QHS SC Last administered on 02/17/17 21:21; Admin Dose 20 UNIT; Start 02/15/17 at 21:00 Losartan Potassium (Cozaar) 50 mg DAILY PO Last administered on 02/17/17 09:17 ; Admin Dose 50 MG; Start 02/15/17 at 13:00; Status Future Hold Atorvastatin Calcium (Lipitor) 20 mg DAILY@21 PO Last administered on 21:18; Admin Dose 20 MG; Start 02/15/17 at 21:00 Miscellaneous Information 1 ea NOTE XX ; Start 02/15/17 at 12:00 Glucose (Glutose) 15 gm Q15M PRN PO DECREASED GLUCOSE; Start 02/15/17 at 12:00 Glucose (Glutose) 22.5 gm Q15M PRN PO DECREASED GLUCOSE; Start 02/15/17 at 12: 00 Dextrose (D50w Syringe) 25 ml Q15M PRN IV DECREASED GLUCOSE; Start 02/15/17 at 12:00 Dextrose (D50w Syringe) 50 ml Q15M PRN IV DECREASED GLUCOSE; Start 02/15/17 at 12:00 Glucagon (Glucagen) 1 mg Q15M PRN IM DECREASED GLUCOSE; Start 02/15/17 at 12:00 Glucose (Glutose) 15 gm Q15M PRN BUCCAL DECREASED GLUCOSE; Start 02/15/17 at 12 :00 Diagnostic Test (Pha) (Accu-Chek) 1 ea 02 XX Last administered on 02/16/17 02: 21; Admin Dose 1 EA; Start 02/16/17 at 02:00 Clopidogrel Bisulfate (plaVIX) 75 mg DAILY PO Last administered on 02/18/17 09: 05; Admin Dose 75 MG; Start 02/15/17 at 14:27 Famotidine (Pepcid) 20 mg DAILY PO Last administered on 02/18/17 09:04; Admin Dose 20 MG; Start 02/15/17 at 21:00 Mupirocin (Bactroban) 1 applic BID TOP Last administered on 02/18/17 09:05; Admin Dose 1 APPLIC; Start 02/17/17 at 10:00 Aspirin (Halfprin) 81 mg DAILY PO Last administered on 02/18/17 09:05; Admin Dose 81 MG; Start 02/18/17 at 09:00 Acetaminophen (Tylenol Tab) 650 mg Q4H PRN PO NON-CARDIAC PAIN LEVEL 1-3; Start 02/17/17 at 12:30 Oxycodone/ Acetaminophen (Percocet (5/ 325)) 1 tab Q4H PRN PO REPORTED NON- CARDIAC PAIN 4-7; Start 02/17/17 at 12:30 Morphine Sulfate (morphine) 1 mg Q1H PRN IV PAIN NOT RELIEVED BY OTHERS; Start 02/17/17 at 12:30 ELEANOR ROLDAN Feb 18, 2017 11:27
[2017-02-18] MEDS: LEVOFLOXACIN 750MG/D5W (PMX) 150 ML IVPB SCH (12:17)
[2017-02-18 12:38] LABS: MICROALBUMIN 11.7 mg/dL
--- NOTE | 2017-02-18 15:38 | RADRPT ---
Vent Rate: 84 bpm RR Interval: 0 msec [place] Interval: 154 msec QRS Duration: 172 msec QT Interval: 452 msec QTC Interval: 534 msec P-R-T [place]: 26 - -2 - 138 degrees Normal sinus rhythm Left bundle branch block Abnormal ECG Electronically Signed By: Lui Justice [id number]
[2017-02-18] MEDS: FUROSEMIDE 40 MG TAB PO SCH (17:39)
[2017-02-18] MEDS: INSULIN GLARGINE [LANtus] 3 ML PEN SC SCH (21:21)
[2017-02-18] MEDS: ATORVASTATIN 20 MG TAB PO SCH (21:25)
[2017-02-19] VITALS (31 sets, daily range): BP systolic 101–147; BP diastolic 59–82; PULSE 40–91; RESP 13–43
[2017-02-19] MEDS: ACCU-CHEK XX SCH (02:17)
[2017-02-19 05:58] LABS: EOSINOPHILS # 0.1 10^3/ul (0.0-0.5); MONOCYTE # 0.3 10^3/ul (0.3-0.9); POSITIVE DIFF @See below
[2017-02-19] MEDS: LEVOTHYROXINE 88 MCG TAB PO SCH (06:01)
[2017-02-19] MEDS: FUROSEMIDE 40 MG TAB PO SCH (06:02)
[2017-02-19 06:27] LABS: RED BLOOD COUNT 3.15 10^6/ul (4.70-6.10); WHITE BLOOD COUNT 3.5 10^3/ul (4.8-10.8)
[2017-02-19 06:28] LABS: BASOPHILS % 0.6 % (0.0-2.0); EOSINOPHILS % 2.3 % (0.0-7.0); HEMATOCRIT 25.2 % (42.0-52.0); HEMOGLOBIN 8.5 g/dl (14.0-18.0); LYMPHOCYTES # 1.1 10^3/ul (0.8-2.9); LYMPHOCYTES % 32.5 % (15.0-51.0); MEAN CORPUSCULAR HGB CONC 33.7 g/dl (32.0-37.0); MEAN PLATELET VOLUME 12.6 fl (7.4-10.4); NEUTROPHILS % 54.9 % (39.0-77.0); PLATELET COUNT 168 10^3/UL (140-415); RED CELL DISTRIBUTION WIDTH 17.4 % (11.5-14.5)
[2017-02-19 06:41] LABS: CALCIUM 8.6 mg/dl (8.4-10.2); CREATININE 1.69 mg/dl (0.61-1.24); POTASSIUM 3.5 mmol/L (3.5-5.1)
[2017-02-19] MEDS: INSULIN ASPART [NOVOLOG] 3 ML PEN SC SCH ×4 (08:10→21:00)
[2017-02-19] MEDS ORDERED: TICAGRELOR 90 MG TABLET PO SCH (09:00)
[2017-02-19] MEDS ORDERED: TICAGRELOR 90 MG TABLET PO ONE (09:00)
[2017-02-19] MEDS: FAMOTIDINE 20 MG TAB PO SCH (09:20)
[2017-02-19] MEDS: ASPIRIN (EC) 81 MG TAB PO SCH (09:20)
[2017-02-19] MEDS: FOLIC ACID 1 MG TAB PO SCH (09:20)
[2017-02-19] MEDS: HEPARIN 5,000 UNIT/0.5 ML VIAL SC SCH ×2 (09:22→21:05)
[2017-02-19] MEDS: MUPIROCIN 2% 22 GM OINT TOP SCH ×2 (09:23→21:01)
--- NOTE | 2017-02-19 10:05 | CONS ---
Date/Time of Note Date/Time of Note DATE: 02/19/17 TIME: 10:04 Consult Date/Type/Reason Admit Date/Time Feb 15, 2017 at 10:26 Type of Consultation: Pulmonary Ordering Provider: GEORGINA HUTCHISON Subjective Remains relatively stable,concern for possible third-degree AV block on cardiology Objective Vital Signs Date Time Temp Pulse Resp B/P Pulse Ox O2 Delivery O2 Flow Rate FiO2 02/19/17 07:00 85 32 121/64 97 Room Air 02/19/17 04:00 98.2 02/19/17 02:48 2.0 02/18/17 02:55 27 Intake and Output 02/18/17 02/18/17 02/19/17 15:00 23:00 07:00 Intake Total 790 ml 370 ml Output Total 400 ml 120 ml 620 ml Balance 390 ml 250 ml -620 ml Exam PHYSICAL EXAMINATION: GENERAL: On examination, elderly appearing gentleman, comfortable at rest, in no acute distress. VITAL SIGNS: NECK: JVD is elevated. No lymphadenopathy. CARDIAC: S1, S2. A 2/6 systolic ejection murmur. CHEST: Diminished air entry bilaterally. No rales. ABDOMEN: Soft, nontender. No guarding or rebound. EXTREMITIES: No clubbing, cyanosis or edema. NEUROLOGIC: Generalized weakness. Results/Medications Result Diagram: 02/19/17 0519 02/19/17 0519 Results 24 hrs Laboratory Tests Test 02/18/17 12:18 02/18/17 17:37 02/18/17 21:17 02/19/17 02:06 Bedside Glucose 128 171 181 122 Test 02/19/17 05:19 02/19/17 08:18 White Blood Count 3.5 #L Red Blood Count 3.15 L Hemoglobin 8.5 L Hematocrit 25.2 L Mean Corpuscular Volume 80.0 L Mean Corpuscular Hemoglobin 27.0 L Mean Corpuscular Hemoglobin Concent 33.7 Red Cell Distribution Width 17.4 H Platelet Count 168 Mean Platelet Volume 12.6 H Neutrophils % 54.9 Lymphocytes % 32.5 Monocytes % 8.0 Eosinophils % 2.3 Basophils % 0.6 Nucleated Red Blood Cells % 0.0 Neutrophils # (Manual) 1.9 Lymphocytes # 1.1 Monocytes # 0.3 Eosinophils # 0.1 Basophils # 0.0 Nucleated Red Blood Cells # 0.0 Sodium Level 143 Potassium Level 3.5 Chloride Level 108 Carbon Dioxide Level 25 Anion Gap 14 Blood Urea Nitrogen 36 H Creatinine 1.69 H Glucose Level 99 Calcium Level 8.6 Bedside Glucose 105 Medications Current Medications Ondansetron HCl (Zofran Inj) 4 mg Q6H PRN IV NAUSEA AND/OR VOMITING; Start at 11:30 Acetaminophen (Tylenol Tab) 650 mg Q6H PRN PO PAIN LEVEL 1-3 OR FEVER; Start at 11:30 Acetaminophen/ Hydrocodone Bitart ([place] (5/325)) 1 tab Q6H PRN PO MODERATE PAIN LEVEL 4-6; Start 02/15/17 at 11:30 Morphine Sulfate (morphine) 2 mg Q4H PRN IV SEVERE PAIN LEVEL 7-10; Start 02/15 at 11:30 Docusate Sodium (Colace) 100 mg Q12H PRN PO CONSTIPATION; Start 02/15/17 at 11: 30 Magnesium Hydroxide (Milk Of Mag) 30 ml DAILY PRN PO CONSTIPATION; Start at 11:30 Sodium Biphosphate/ Sodium Phosphate (Fleet Enema) 133 ml DAILY PRN [place] CONSTIPATION; Start 02/15/17 at 11:30 Heparin Sodium (Porcine) (Heparin (5000 Units/0.5 ml)) 5,000 unit Q12 SC Last administered on 02/19/17 09:22; Admin Dose 5,000 UNIT; Start 02/15/17 at 21:00 Lorazepam 0.5 mg 0.5 mg Q6H PRN IV ANXIETY; Start 02/15/17 at 11:30 Levofloxacin/ Dextrose (Levaquin 750 Mg/ D5W 150 ml (Pmx)) 150 ml @ 100 mls/hr Q48H IVPB Last administered on 02/18/17 12:17; Admin Dose 100 MLS/HR; Start at 13:00 Hydralazine HCl (Apresoline) 10 mg Q6H PRN IV ELEVATED BLOOD PRESSURE; Start at 11:30 Nitroglycerin (Nitroglycerin (Sl Tab) 0.4 Mg) 1 tab Q5M PRN SL ANGINA; Start at 11:30 Carvedilol (Coreg) 3.125 mg BID PO Last administered on 02/19/17 09:20; Admin Dose 3.125 MG; Start 02/15/17 at 21:00 Folic Acid (Folic Acid) 1 mg DAILY PO Last administered on 02/19/17 09:20; Admin Dose 1 MG; Start 02/16/17 at 09:00 Insulin Glargine (Lantus) 20 unit QHS SC Last administered on 02/18/17 21:21; Admin Dose 20 UNIT; Start 02/15/17 at 21:00 Losartan Potassium (Cozaar) 50 mg DAILY PO Last administered on 02/17/17 09:17 ; Admin Dose 50 MG; Start 02/15/17 at 13:00; Status Future Hold Atorvastatin Calcium (Lipitor) 20 mg DAILY@21 PO Last administered on 02/18/17 21:25; Admin Dose 20 MG; Start 02/15/17 at 21:00 Glucose (Glutose) 15 gm Q15M PRN PO DECREASED GLUCOSE; Start 02/15/17 at 12:00 Glucose (Glutose) 22.5 gm Q15M PRN PO DECREASED GLUCOSE; Start 02/15/17 at 12: 00 Dextrose (D50w Syringe) 25 ml Q15M PRN IV DECREASED GLUCOSE; Start 02/15/17 at 12:00 Dextrose (D50w Syringe) 50 ml Q15M PRN IV DECREASED GLUCOSE; Start 02/15/17 at 12:00 Glucagon (Glucagen) 1 mg Q15M PRN IM DECREASED GLUCOSE; Start 02/15/17 at 12:00 Glucose (Glutose) 15 gm Q15M PRN BUCCAL DECREASED GLUCOSE; Start 02/15/17 at 12 :00 Diagnostic Test (Pha) (Accu-Chek) 1 ea 02 XX Last administered on 02/19/17 02: 17; Admin Dose 1 EA; Start 02/16/17 at 02:00 Famotidine (Pepcid) 20 mg DAILY PO Last administered on 02/19/17 09:20; Admin Dose 20 MG; Start 02/15/17 at 21:00 Mupirocin (Bactroban) 1 applic BID TOP Last administered on 02/19/17 09:23; Admin Dose 1 APPLIC; Start 02/17/17 at 10:00 Aspirin (Halfprin) 81 mg DAILY PO Last administered on 02/19/17 09:20; Admin Dose 81 MG; Start 02/18/17 at 09:00 Acetaminophen (Tylenol Tab) 650 mg Q4H PRN PO NON-CARDIAC PAIN LEVEL 1-3; Start 02/17/17 at 12:30 Oxycodone/ Acetaminophen (Percocet (5/ 325)) 1 tab Q4H PRN PO REPORTED NON- CARDIAC PAIN 4-7; Start 02/17/17 at 12:30 Ticagrelor (Brilinta) 90 mg BID PO ; Start 02/19/17 at 21:00 Assessment/Plan Chief Complaint/Hosp Course IMPRESSION: 1. Hypoxemic respiratory failure likely secondary to acute on chronic left ventricular heart failure.Clinically improved with diuretics. 2. Possible community-acquired pneumonia. 3. History of aortic valve replacement status post transcatheter aortic valve replacement. Status post PCI with stent placement. Concern for possible third-degree heart block. 4. Possible pancreatitis given elevated lipase. However clinically stable. PLAN: 1. Continue gentle diuretics. 2. Continue supplemental O2. 3. Ambulate as tolerated 4. Cardiac recommendations, continue to monitor 5. DVT and GI prophylaxis. Discharge planning okay from pulmonary standpoint follow-up with me in the office Problems: YOBANY PALUMBO MD, FCCP Feb 19, 2017 10:05
--- NOTE | 2017-02-19 10:31 | PN ---
Date/Time of Note Date/Time of Note DATE: 02/19/17 TIME: 10:28 Assessment/Plan VTE Prophylaxis VTE Prophylaxis Intervention: heparin Lines/Catheters IV [facility] [place] [facility] Urinary Cath still in place: No Assessment/Plan Chief Complaint/Hosp Course ASSESSMENT AND PLAN: An 81-year-old male, prior history of coronary artery disease (CAD) with 4 stents, aortic stenosis with valve replacement in August 2016, hypertension, high cholesterol, hypothyroidism, diabetes, who presents with shortness of breath with signs of congestive heart failure (CHF) exacerbation and left bundle branch block (LBBB) seen on EKG, and non-ST elevation OK, status post stent placement this admission. 1. Shortness of breath-slowly improving. Symptoms are secondary to acute decompensated heart failure, as well as non-ST elevation OK. The patient has a known history of congestive heart failure (CHF) in the past with ejection fraction around 30-35 percent range. + NSTEMI with s/p PCI this admission as well. -Continue Lasix now PO 40 mg b.i.d., keep head of bed greater than 30 degrees. -Monitor ins and outs. morphine p.r.n., nitroglycerin p.r.n., and oxygen supplementation as well. - f/u physical therapy (PT) consult as well. - Holding BALTA inhibitor for now given the patient's mild renal insufficiency. 2. Non-ST elevation OK: Status post stent placement to distal left main. Had some possible 2nd and 3rd degree HB this AM, but now NSR. -Continue aspirin and Plavix, follow-up cardiology recommendations, continue current blood pressure medicines, statin 3. History of coronary artery disease (CAD) with prior history of stent times 4. -See #2 4. History of aortic stenosis status post aortic valve replacement earlier this year [facility]. - Again, continue current cardiac medications. Follow Cardiology recommendations. 5. Renal insufficiency-creatinine at 1.6 today. Baseline appears 1.4 appreciate renal consult. - Monitor ins and outs, follow-up renal recommendations - Follow BMP in the morning. -Holding BALTA inhibitor for now. - Continue other cardiac medications. 6. Diabetes. Continue on sliding scale insulin, home Lantus 7. Hypothyroidism. Followup thyroid panel. Continue levothyroxine. 8. High cholesterol-monitor 9. Gastrointestinal (GI) prophylaxis with famotidine. 10. Deep venous thrombosis (DVT) prophylaxis. Heparin subcutaneous. Critical care time spent on patient care today equals 40 minutes. Problems: Subjective 24 Hr Interval Summary Free Text/Dictation Pt had possible second and third degree HB runs last nioght (short runs) , presently denies cp, and in NSR. Exam/Review of Systems Vital Signs Vitals Vital Signs Date Time Temp Pulse Resp B/P Pulse Ox O2 Delivery O2 Flow Rate FiO2 02/19/17 07:00 85 32 121/64 97 Room Air 02/19/17 04:00 98.2 02/19/17 02:48 2.0 02/18/17 02:55 27 Intake and Output 02/18/17 02/18/17 02/19/17 15:00 23:00 07:00 Intake Total 790 ml 370 ml Output Total 400 ml 120 ml 620 ml Balance 390 ml 250 ml -620 ml Results Result Diagram: 02/19/17 0519 02/19/17 0519 Results 24 hrs Laboratory Tests Test 02/18/17 12:18 02/18/17 17:37 02/18/17 21:17 02/19/17 02:06 Bedside Glucose 128 171 181 122 Test 02/19/17 05:19 02/19/17 08:18 White Blood Count 3.5 #L Red Blood Count 3.15 L Hemoglobin 8.5 L Hematocrit 25.2 L Mean Corpuscular Volume 80.0 L Mean Corpuscular Hemoglobin 27.0 L Mean Corpuscular Hemoglobin Concent 33.7 Red Cell Distribution Width 17.4 H Platelet Count 168 Mean Platelet Volume 12.6 H Neutrophils % 54.9 Lymphocytes % 32.5 Monocytes % 8.0 Eosinophils % 2.3 Basophils % 0.6 Nucleated Red Blood Cells % 0.0 Neutrophils # (Manual) 1.9 Lymphocytes # 1.1 Monocytes # 0.3 Eosinophils # 0.1 Basophils # 0.0 Nucleated Red Blood Cells # 0.0 Sodium Level 143 Potassium Level 3.5 Chloride Level 108 Carbon Dioxide Level 25 Anion Gap 14 Blood Urea Nitrogen 36 H Creatinine 1.69 H Glucose Level 99 Calcium Level 8.6 Bedside Glucose 105 Medications Medications Current Medications Ondansetron HCl (Zofran Inj) 4 mg Q6H PRN IV NAUSEA AND/OR VOMITING; Start at 11:30 Acetaminophen (Tylenol Tab) 650 mg Q6H PRN PO PAIN LEVEL 1-3 OR FEVER; Start at 11:30 Acetaminophen/ Hydrocodone Bitart ([place] (5/325)) 1 tab Q6H PRN PO MODERATE PAIN LEVEL 4-6; Start 02/15/17 at 11:30 Morphine Sulfate (morphine) 2 mg Q4H PRN IV SEVERE PAIN LEVEL 7-10; Start 02/15 at 11:30 Docusate Sodium (Colace) 100 mg Q12H PRN PO CONSTIPATION; Start 02/15/17 at 11: 30 Magnesium Hydroxide (Milk Of Mag) 30 ml DAILY PRN PO CONSTIPATION; Start at 11:30 Sodium Biphosphate/ Sodium Phosphate (Fleet Enema) 133 ml DAILY PRN [place] CONSTIPATION; Start 02/15/17 at 11:30 Heparin Sodium (Porcine) (Heparin (5000 Units/0.5 ml)) 5,000 unit Q12 SC Last administered on 02/19/17 09:22; Admin Dose 5,000 UNIT; Start 02/15/17 at 21:00 Lorazepam 0.5 mg 0.5 mg Q6H PRN IV ANXIETY; Start 02/15/17 at 11:30 Levofloxacin/ Dextrose (Levaquin 750 Mg/ D5W 150 ml (Pmx)) 150 ml @ 100 mls/hr Q48H IVPB Last administered on 02/18/17 12:17; Admin Dose 100 MLS/HR; Start at 13:00 Hydralazine HCl (Apresoline) 10 mg Q6H PRN IV ELEVATED BLOOD PRESSURE; Start at 11:30 Nitroglycerin (Nitroglycerin (Sl Tab) 0.4 Mg) 1 tab Q5M PRN SL ANGINA; Start at 11:30 Carvedilol (Coreg) 3.125 mg BID PO Last administered on 02/19/17 09:20; Admin Dose 3.125 MG; Start 02/15/17 at 21:00 Folic Acid (Folic Acid) 1 mg DAILY PO Last administered on 02/19/17 09:20; Admin Dose 1 MG; Start 02/16/17 at 09:00 Insulin Glargine (Lantus) 20 unit QHS SC Last administered on 02/18/17 21:21; Admin Dose 20 UNIT; Start 02/15/17 at 21:00 Losartan Potassium (Cozaar) 50 mg DAILY PO Last administered on 02/17/17 09:17 ; Admin Dose 50 MG; Start 02/15/17 at 13:00; Status Future Hold Atorvastatin Calcium (Lipitor) 20 mg DAILY@21 PO Last administered on 02/18/17 21:25; Admin Dose 20 MG; Start 02/15/17 at 21:00 Glucose (Glutose) 15 gm Q15M PRN PO DECREASED GLUCOSE; Start 02/15/17 at 12:00 Glucose (Glutose) 22.5 gm Q15M PRN PO DECREASED GLUCOSE; Start 02/15/17 at 12: 00 Dextrose (D50w Syringe) 25 ml Q15M PRN IV DECREASED GLUCOSE; Start 02/15/17 at 12:00 Dextrose (D50w Syringe) 50 ml Q15M PRN IV DECREASED GLUCOSE; Start 02/15/17 at 12:00 Glucagon (Glucagen) 1 mg Q15M PRN IM DECREASED GLUCOSE; Start 02/15/17 at 12:00 Glucose (Glutose) 15 gm Q15M PRN BUCCAL DECREASED GLUCOSE; Start 02/15/17 at 12 :00 Diagnostic Test (Pha) (Accu-Chek) 1 ea 02 XX Last administered on 02/19/17 02: 17; Admin Dose 1 EA; Start 02/16/17 at 02:00 Famotidine (Pepcid) 20 mg DAILY PO Last administered on 02/19/17 09:20; Admin Dose 20 MG; Start 02/15/17 at 21:00 Mupirocin (Bactroban) 1 applic BID TOP Last administered on 02/19/17 09:23; Admin Dose 1 APPLIC; Start 02/17/17 at 10:00 Aspirin (Halfprin) 81 mg DAILY PO Last administered on 02/19/17 09:20; Admin Dose 81 MG; Start 02/18/17 at 09:00 Acetaminophen (Tylenol Tab) 650 mg Q4H PRN PO NON-CARDIAC PAIN LEVEL 1-3; Start 02/17/17 at 12:30 Oxycodone/ Acetaminophen (Percocet (5/ 325)) 1 tab Q4H PRN PO REPORTED NON- CARDIAC PAIN 4-7; Start 02/17/17 at 12:30 Ticagrelor (Brilinta) 90 mg BID PO ; Start 02/19/17 at 21:00 GEORGINA HUTCHISON Feb 19, 2017 10:31
--- NOTE | 2017-02-19 10:34 | PN ---
Date/Time of Note Date/Time of Note DATE: 02/19/17 TIME: 10:31 Assessment/Plan VTE Prophylaxis VTE Prophylaxis Intervention: other Lines/Catheters IV [facility] Type (from [facility]): Saline Lock Urinary Cath still in place: No Assessment/Plan Assessment/Plan renal follow up SUBJECTIVE DATA: s/p cardiac cath with PCI and stent placement. cardiac strips were reviewed. The patient has good urinary output. currently in icu no nausea, hematuria, melena, rash, chest pain, dyspnea imaging studies were reviewed d/w cardiology OBJECTIVE DATA: HEENT: Head is normocephalic. NECK: Supple. HEART: Regular rate. LUNGS: Show diminished breath sounds at the base. ABDOMEN: Soft, nontender to palpation. No rebound or guarding. EXTREMITIES: Negative for clubbing, cyanosis. No edema. DERMATOLOGIC: Clean. No rashes. MUSCULOSKELETAL: No joint effusion. NEUROLOGIC: No change in exam. MEDICATIONS: Reviewed. ASSESSMENT AND PLAN: 1. Nonoliguric acute kidney injury on top of chronic kidney disease with previous baseline creatinine 1.4 mg/dL. Etiology of acute kidney injury is secondary to hemodynamics. The patient is status post cardiac cath with 126 cc of dye used. Renal function is mildly declined today. Doubt it is related to contrast nephropathy. no change in lasix yet. 2. Hypernatremia, resolved. 3. Anemia. Monitor H and H levels. 4. Mineral bone disorder. Continue to monitor calcium and phosphorus levels. 5. Coronary artery disease, status post percutaneous coronary intervention. Continue current medical management. 6. Acute respiratory failure secondary to congestive heart failure. Continue to monitor closely. 7. Aortic stenosis, status post aortic valve replacement. 8. Diabetes. Continue Accu-Cheks and insulin sliding scale. 9. Hypothyroidism. Continue Synthroid. Exam/Review of Systems Vital Signs Vitals Vital Signs Date Time Temp Pulse Resp B/P Pulse Ox O2 Delivery O2 Flow Rate FiO2 02/19/17 07:00 85 32 121/64 97 Room Air 02/19/17 04:00 98.2 02/19/17 02:48 2.0 02/18/17 02:55 27 Intake and Output 02/18/17 02/18/17 02/19/17 15:00 23:00 07:00 Intake Total 790 ml 370 ml Output Total 400 ml 120 ml 620 ml Balance 390 ml 250 ml -620 ml Results Result Diagram: 02/19/17 0519 02/19/17 0519 Results 24 hrs Laboratory Tests Test 02/18/17 12:18 02/18/17 17:37 02/18/17 21:17 02/19/17 02:06 Bedside Glucose 128 171 181 122 Test 02/19/17 05:19 02/19/17 08:18 White Blood Count 3.5 #L Red Blood Count 3.15 L Hemoglobin 8.5 L Hematocrit 25.2 L Mean Corpuscular Volume 80.0 L Mean Corpuscular Hemoglobin 27.0 L Mean Corpuscular Hemoglobin Concent 33.7 Red Cell Distribution Width 17.4 H Platelet Count 168 Mean Platelet Volume 12.6 H Neutrophils % 54.9 Lymphocytes % 32.5 Monocytes % 8.0 Eosinophils % 2.3 Basophils % 0.6 Nucleated Red Blood Cells % 0.0 Neutrophils # (Manual) 1.9 Lymphocytes # 1.1 Monocytes # 0.3 Eosinophils # 0.1 Basophils # 0.0 Nucleated Red Blood Cells # 0.0 Sodium Level 143 Potassium Level 3.5 Chloride Level 108 Carbon Dioxide Level 25 Anion Gap 14 Blood Urea Nitrogen 36 H Creatinine 1.69 H Glucose Level 99 Calcium Level 8.6 Bedside Glucose 105 Medications Medications Current Medications Ondansetron HCl (Zofran Inj) 4 mg Q6H PRN IV NAUSEA AND/OR VOMITING; Start at 11:30 Acetaminophen (Tylenol Tab) 650 mg Q6H PRN PO PAIN LEVEL 1-3 OR FEVER; Start at 11:30 Acetaminophen/ Hydrocodone Bitart ([place] (5/325)) 1 tab Q6H PRN PO MODERATE PAIN LEVEL 4-6; Start 02/15/17 at 11:30 Morphine Sulfate (morphine) 2 mg Q4H PRN IV SEVERE PAIN LEVEL 7-10; Start 02/15 at 11:30 Docusate Sodium (Colace) 100 mg Q12H PRN PO CONSTIPATION; Start 02/15/17 at 11: 30 Magnesium Hydroxide (Milk Of Mag) 30 ml DAILY PRN PO CONSTIPATION; Start at 11:30 Sodium Biphosphate/ Sodium Phosphate (Fleet Enema) 133 ml DAILY PRN [place] CONSTIPATION; Start 02/15/17 at 11:30 Heparin Sodium (Porcine) (Heparin (5000 Units/0.5 ml)) 5,000 unit Q12 SC Last administered on 02/19/17 09:22; Admin Dose 5,000 UNIT; Start 02/15/17 at 21:00 Lorazepam 0.5 mg 0.5 mg Q6H PRN IV ANXIETY; Start 02/15/17 at 11:30 Levofloxacin/ Dextrose (Levaquin 750 Mg/ D5W 150 ml (Pmx)) 150 ml @ 100 mls/hr Q48H IVPB Last administered on 02/18/17 12:17; Admin Dose 100 MLS/HR; Start at 13:00 Hydralazine HCl (Apresoline) 10 mg Q6H PRN IV ELEVATED BLOOD PRESSURE; Start at 11:30 Nitroglycerin (Nitroglycerin (Sl Tab) 0.4 Mg) 1 tab Q5M PRN SL ANGINA; Start at 11:30 Carvedilol (Coreg) 3.125 mg BID PO Last administered on 02/19/17 09:20; Admin Dose 3.125 MG; Start 02/15/17 at 21:00 Folic Acid (Folic Acid) 1 mg DAILY PO Last administered on 02/19/17 09:20; Admin Dose 1 MG; Start 02/16/17 at 09:00 Insulin Glargine (Lantus) 20 unit QHS SC Last administered on 02/18/17 21:21; Admin Dose 20 UNIT; Start 02/15/17 at 21:00 Losartan Potassium (Cozaar) 50 mg DAILY PO Last administered on 02/17/17 09:17 ; Admin Dose 50 MG; Start 02/15/17 at 13:00; Status Future Hold Atorvastatin Calcium (Lipitor) 20 mg DAILY@21 PO Last administered on 02/18/17 21:25; Admin Dose 20 MG; Start 02/15/17 at 21:00 Glucose (Glutose) 15 gm Q15M PRN PO DECREASED GLUCOSE; Start 02/15/17 at 12:00 Glucose (Glutose) 22.5 gm Q15M PRN PO DECREASED GLUCOSE; Start 02/15/17 at 12: 00 Dextrose (D50w Syringe) 25 ml Q15M PRN IV DECREASED GLUCOSE; Start 02/15/17 at 12:00 Dextrose (D50w Syringe) 50 ml Q15M PRN IV DECREASED GLUCOSE; Start 02/15/17 at 12:00 Glucagon (Glucagen) 1 mg Q15M PRN IM DECREASED GLUCOSE; Start 02/15/17 at 12:00 Glucose (Glutose) 15 gm Q15M PRN BUCCAL DECREASED GLUCOSE; Start 02/15/17 at 12 :00 Diagnostic Test (Pha) (Accu-Chek) 1 ea 02 XX Last administered on 02/19/17 02: 17; Admin Dose 1 EA; Start 02/16/17 at 02:00 Famotidine (Pepcid) 20 mg DAILY PO Last administered on 02/19/17 09:20; Admin Dose 20 MG; Start 02/15/17 at 21:00 Mupirocin (Bactroban) 1 applic BID TOP Last administered on 02/19/17 09:23; Admin Dose 1 APPLIC; Start 02/17/17 at 10:00 Aspirin (Halfprin) 81 mg DAILY PO Last administered on 02/19/17 09:20; Admin Dose 81 MG; Start 02/18/17 at 09:00 Acetaminophen (Tylenol Tab) 650 mg Q4H PRN PO NON-CARDIAC PAIN LEVEL 1-3; Start 02/17/17 at 12:30 Oxycodone/ Acetaminophen (Percocet (5/ 325)) 1 tab Q4H PRN PO REPORTED NON- CARDIAC PAIN 4-7; Start 02/17/17 at 12:30 Ticagrelor (Brilinta) 90 mg BID PO ; Start 02/19/17 at 21:00 KAMILLA BOYD DO Feb 19, 2017 10:34
[2017-02-19 12:49] LABS: MAGNESIUM 2.2 mg/dl (1.7-2.5); PHOSPHORUS 4.4 mg/dl (2.5-4.9)
--- NOTE | 2017-02-19 13:00 | PN ---
Date/Time of Note Date/Time of Note DATE: 02/19/17 TIME: 12:30 Assessment/Plan VTE Prophylaxis VTE Prophylaxis Intervention: heparin Lines/Catheters IV Catheter Type (from [facility]): Saline Lock Urinary Cath still in place: No Assessment/Plan Chief Complaint/Hosp Course The patient is an 80-year-old male with documented severe coronary artery disease and ischemic cardiomyopathy with moderate left ventricular systolic dysfunction. The patient was admitted with an NSTEMI caused by severe in stent restenosis of distal left main coronary artery. The patient had successful PCI by Dr. Flores. Additionally, was admitted with acute decompensated congestive heart failure. The patient has improved after the procedure. Patient developed transient bradycardia due to second degree Mobitz 1. Diagnosis: #1 Acute NSTEMI #2 Severe three-vessel coronary artery disease #3 Ischemic cardiomyopathy with severe LV systolic dysfunction #4 Aortic valve disease -status post TAVR. #5 Hypercholesterolemia #6 Congestive heart failure, partially compensated. Plan: #1 Continue post procedure care: Aspirin, Ticagreloor, Carvedilol, statin. #2 Keep 1 more day in ICU. Signed Salo Rowe MD Problems: Subjective 24 Hr Interval Summary Respiratory: shortness of breath Exam/Review of Systems Vital Signs Vitals Vital Signs Date Time Temp Pulse Resp B/P Pulse Ox O2 Delivery O2 Flow Rate FiO2 02/19/17 10:00 84 24 104/59 97 Room Air 02/19/17 08:00 98.8 02/19/17 02:48 2.0 02/18/17 02:55 27 Intake and Output 02/18/17 02/18/17 02/19/17 15:00 23:00 07:00 Intake Total 790 ml 370 ml Output Total 400 ml 120 ml 620 ml Balance 390 ml 250 ml -620 ml Exam Constitutional: alert Respiratory: crackles/rales Cardiovascular: S3, gallop Gastrointestinal: soft Musculoskeletal: nl extremities to inspection Results Result Diagram: 02/19/17 0519 02/19/17 0519 Results 24 hrs Laboratory Tests Test 02/18/17 17:37 02/18/17 21:17 02/19/17 02:06 02/19/17 05:19 Bedside Glucose 171 181 122 White Blood Count 3.5 #L Red Blood Count 3.15 L Hemoglobin 8.5 L Hematocrit 25.2 L Mean Corpuscular Volume 80.0 L Mean Corpuscular Hemoglobin 27.0 L Mean Corpuscular Hemoglobin Concent 33.7 Red Cell Distribution Width 17.4 H Platelet Count 168 Mean Platelet Volume 12.6 H Neutrophils % 54.9 Lymphocytes % 32.5 Monocytes % 8.0 Eosinophils % 2.3 Basophils % 0.6 Nucleated Red Blood Cells % 0.0 Neutrophils # (Manual) 1.9 Lymphocytes # 1.1 Monocytes # 0.3 Eosinophils # 0.1 Basophils # 0.0 Nucleated Red Blood Cells # 0.0 Sodium Level 143 Potassium Level 3.5 Chloride Level 108 Carbon Dioxide Level 25 Anion Gap 14 Blood Urea Nitrogen 36 H Creatinine 1.69 H Glucose Level 99 Calcium Level 8.6 Test 02/19/17 08:18 02/19/17 12:08 Bedside Glucose 105 162 Medications Medications Current Medications Ondansetron HCl (Zofran Inj) 4 mg Q6H PRN IV NAUSEA AND/OR VOMITING; Start at 11:30 Acetaminophen (Tylenol Tab) 650 mg Q6H PRN PO PAIN LEVEL 1-3 OR FEVER; Start at 11:30 Acetaminophen/ Hydrocodone Bitart ([place] (5/325)) 1 tab Q6H PRN PO MODERATE PAIN LEVEL 4-6; Start 02/15/17 at 11:30 Morphine Sulfate (morphine) 2 mg Q4H PRN IV SEVERE PAIN LEVEL 7-10; Start 02/15 at 11:30 Docusate Sodium (Colace) 100 mg Q12H PRN PO CONSTIPATION; Start 02/15/17 at 11: 30 Magnesium Hydroxide (Milk Of Mag) 30 ml DAILY PRN PO CONSTIPATION; Start at 11:30 Sodium Biphosphate/ Sodium Phosphate (Fleet Enema) 133 ml DAILY PRN [place] CONSTIPATION; Start 02/15/17 at 11:30 Heparin Sodium (Porcine) (Heparin (5000 Units/0.5 ml)) 5,000 unit Q12 SC Last administered on 02/19/17t 09:22; Admin Dose 5,000 UNIT; Start 02/15/17 at 21:00 Lorazepam 0.5 mg 0.5 mg Q6H PRN IV ANXIETY; Start 02/15/17 at 11:30 Levofloxacin/ Dextrose (Levaquin 750 Mg/ D5W 150 ml (Pmx)) 150 ml @ 100 mls/hr Q48H IVPB Last administered on 02/18/17 12:17; Admin Dose 100 MLS/HR; Start at 13:00 Hydralazine HCl (Apresoline) 10 mg Q6H PRN IV ELEVATED BLOOD PRESSURE; Start at 11:30 Nitroglycerin (Nitroglycerin (Sl Tab) 0.4 Mg) 1 tab Q5M PRN SL ANGINA; Start at 11:30 Carvedilol (Coreg) 3.125 mg BID PO Last administered on 02/19/17 09:20; Admin Dose 3.125 MG; Start 02/15/17 at 21:00 Folic Acid (Folic Acid) 1 mg DAILY PO Last administered on 02/19/17 09:20; Admin Dose 1 MG; Start 02/16/17 at 09:00 Insulin Glargine (Lantus) 20 unit QHS SC Last administered on 02/18/17 21:21; Admin Dose 20 UNIT; Start 02/15/17 at 21:00 Losartan Potassium (Cozaar) 50 mg DAILY PO Last administered on 02/17/17 09:17 ; Admin Dose 50 MG; Start 02/15/17 at 13:00; Status Future Hold Atorvastatin Calcium (Lipitor) 20 mg DAILY@21 PO Last administered on 02/18/17 21:25; Admin Dose 20 MG; Start 02/15/17 at 21:00 Glucose (Glutose) 15 gm Q15M PRN PO DECREASED GLUCOSE; Start 02/15/17 at 12:00 Glucose (Glutose) 22.5 gm Q15M PRN PO DECREASED GLUCOSE; Start 02/15/17 at 12: 00 Dextrose (D50w Syringe) 25 ml Q15M PRN IV DECREASED GLUCOSE; Start 02/15/17 at 12:00 Dextrose (D50w Syringe) 50 ml Q15M PRN IV DECREASED GLUCOSE; Start 02/15/17 at 12:00 Glucagon (Glucagen) 1 mg Q15M PRN IM DECREASED GLUCOSE; Start 02/15/17 at 12:00 Glucose (Glutose) 15 gm Q15M PRN BUCCAL DECREASED GLUCOSE; Start 02/15/17 at 12 :00 Diagnostic Test (Pha) (Accu-Chek) 1 ea 02 XX Last administered on 02/19/17 02: 17; Admin Dose 1 EA; Start 02/16/17 at 02:00 Famotidine (Pepcid) 20 mg DAILY PO Last administered on 02/19/17 09:20; Admin Dose 20 MG; Start 02/15/17 at 21:00 Mupirocin (Bactroban) 1 applic BID TOP Last administered on 02/19/17 09:23; Admin Dose 1 APPLIC; Start 02/17/17 at 10:00 Aspirin (Halfprin) 81 mg DAILY PO Last administered on 02/19/17 09:20; Admin Dose 81 MG; Start 02/18/17 at 09:00 Acetaminophen (Tylenol Tab) 650 mg Q4H PRN PO NON-CARDIAC PAIN LEVEL 1-3; Start 02/17/17 at 12:30 Oxycodone/ Acetaminophen (Percocet (5/ 325)) 1 tab Q4H PRN PO REPORTED NON- CARDIAC PAIN 4-7; Start 02/17/17 at 12:30 Ticagrelor (Brilinta) 90 mg BID PO ; Start 02/19/17 at 21:00 Furosemide (Lasix) 40 mg DAILY@06 PO ; Start 02/20/17 at 06:00 SALO ROWE MD Feb 19, 2017 12:55
--- NOTE | 2017-02-19 15:42 | PN ---
Date/Time of Note Date/Time of Note DATE: 02/19/17 TIME: 15:03 DUPLICATE NOTE PLACED IN ERROR == PLEASE REFER TO ALTERNATIVE NOTE OF SAME DATE Assessment/Plan VTE Prophylaxis VTE Prophylaxis Intervention: ambulation, heparin Lines/Catheters [facility]from [facility] Saline Lock Central line still needed: No Urinary Cath still in place: No Assessment/Plan Chief Complaint/Hosp Course The patient is an 80-year-old male with documented severe coronary artery disease and ischemic cardiomyopathy with moderate left ventricular systolic dysfunction. The patient was admitted with an NSTEMI caused by severe in stent restenosis of distal left main coronary artery. The patient had successful PCI by Dr. Flores. Additionally, was admitted with acute decompensated congestive heart failure. The patient has improved after the procedure. Patient developed transient bradycardia due to second degree Mobitz 1. Diagnosis: #1 Acute NSTEMI #2 Severe three-vessel coronary artery disease #3 Ischemic cardiomyopathy with severe LV systolic dysfunction #4 Aortic valve disease -status post TAVR. #5 Hypercholesterolemia #6 Congestive heart failure, partially compensated. Plan: #1 Continue post procedure care: Aspirin, Ticagreloor, Carvedilol, statin. #2 Keep 1 more day in ICU. Signed Piyush Rowe MD Problems: Assessment/Plan 1. Recent anterior myocardial infarction ([place]). 2. Ischemic cardiomyopathy with severe LV systolic dysfunction (EF~15-20%). 3. Persistent sinus tachycardia, associated with borderline systolic pressure. 4. Akinesis of the apex, anterior and anteroseptal wall (echo). Plan: #1 Keep patient in ICU. #2 Increase cautiously the dosing of the beta-bijal. Piyush Rowe MD Exam/Review of Systems Vital Signs Vitals Vital Signs Date Time Temp Pulse Resp B/P Pulse Ox O2 Delivery O2 Flow Rate FiO2 02/19/17 12:00 73 02/19/17 10:00 24 104/59 97 Room Air 02/19/17 08:00 98.8 02/19/17 02:48 2.0 02/18/17 02:55 27 Intake and Output 02/18/17 02/18/17 02/19/17 15:00 23:00 07:00 Intake Total 790 ml 370 ml Output Total 400 ml 120 ml 620 ml Balance 390 ml 250 ml -620 ml Exam Respiratory: clear to auscultation, congested cough, crackles/rales, diminished breath sounds, intercostal retraction, labored breathing, normal air movement, other, respirations, tactile fremitus, wheezing Cardiovascular: S4, gallop, other (persistent sinus tachycardia) Results Result Diagram: 02/19/17 0519 02/19/17 0519 Results 24 hrs Laboratory Tests Test 02/18/17 17:37 02/18/17 21:17 02/19/17 02:06 02/19/17 05:19 Bedside Glucose 171 181 122 White Blood Count 3.5 #L Red Blood Count 3.15 L Hemoglobin 8.5 L Hematocrit 25.2 L Mean Corpuscular Volume 80.0 L Mean Corpuscular Hemoglobin 27.0 L Mean Corpuscular Hemoglobin Concent 33.7 Red Cell Distribution Width 17.4 H Platelet Count 168 Mean Platelet Volume 12.6 H Neutrophils % 54.9 Lymphocytes % 32.5 Monocytes % 8.0 Eosinophils % 2.3 Basophils % 0.6 Nucleated Red Blood Cells % 0.0 Neutrophils # (Manual) 1.9 Lymphocytes # 1.1 Monocytes # 0.3 Eosinophils # 0.1 Basophils # 0.0 Nucleated Red Blood Cells # 0.0 Sodium Level 143 Potassium Level 3.5 Chloride Level 108 Carbon Dioxide Level 25 Anion Gap 14 Blood Urea Nitrogen 36 H Creatinine 1.69 H Glucose Level 99 Calcium Level 8.6 Phosphorus Level 4.4 Magnesium Level 2.2 Test 02/19/17 08:18 02/19/17 12:08 Bedside Glucose 105 162 Medications Medications Current Medications Ondansetron HCl (Zofran Inj) 4 mg Q6H PRN IV NAUSEA AND/OR VOMITING; Start at 11:30 Acetaminophen (Tylenol Tab) 650 mg Q6H PRN PO PAIN LEVEL 1-3 OR FEVER; Start at 11:30 Acetaminophen/ Hydrocodone Bitart ([place] (5/325)) 1 tab Q6H PRN PO MODERATE PAIN LEVEL 4-6; Start 02/15/17 at 11:30 Morphine Sulfate (morphine) 2 mg Q4H PRN IV SEVERE PAIN LEVEL 7-10; Start 02/15 at 11:30 Docusate Sodium (Colace) 100 mg Q12H PRN PO CONSTIPATION; Start 02/15/17 at 11: 30 Magnesium Hydroxide (Milk Of Mag) 30 ml DAILY PRN PO CONSTIPATION; Start at 11:30 Sodium Biphosphate/ Sodium Phosphate (Fleet Enema) 133 ml DAILY PRN [place] CONSTIPATION; Start 02/15/17 at 11:30 Heparin Sodium (Porcine) (Heparin (5000 Units/0.5 ml)) 5,000 unit Q12 SC Last administered on 02/19/17 09:22; Admin Dose 5,000 UNIT; Start 02/15/17 at 21:00 Lorazepam 0.5 mg 0.5 mg Q6H PRN IV ANXIETY; Start 02/15/17 at 11:30 Levofloxacin/ Dextrose (Levaquin 750 Mg/ D5W 150 ml (Pmx)) 150 ml @ 100 mls/hr Q48H IVPB Last administered on 02/18/17 12:17; Admin Dose 100 MLS/HR; Start at 13:00 Hydralazine HCl (Apresoline) 10 mg Q6H PRN IV ELEVATED BLOOD PRESSURE; Start at 11:30 Nitroglycerin (Nitroglycerin (Sl Tab) 0.4 Mg) 1 tab Q5M PRN SL ANGINA; Start at 11:30 Carvedilol (Coreg) 3.125 mg BID PO Last administered on 02/19/17 09:20; Admin Dose 3.125 MG; Start 02/15/17 at 21:00 Folic Acid (Folic Acid) 1 mg DAILY PO Last administered on 02/19/17 09:20; Admin Dose 1 MG; Start 02/16/17 at 09:00 Insulin Glargine (Lantus) 20 unit QHS SC Last administered on 02/18/17 21:21; Admin Dose 20 UNIT; Start 02/15/17 at 21:00 Losartan Potassium (Cozaar) 50 mg DAILY PO Last administered on 02/17/17 09:17 ; Admin Dose 50 MG; Start 02/15/17 at 13:00; Status Future Hold Atorvastatin Calcium (Lipitor) 20 mg DAILY@21 PO Last administered on 02/18/17 21:25; Admin Dose 20 MG; Start 02/15/17 at 21:00 Glucose (Glutose) 15 gm Q15M PRN PO DECREASED GLUCOSE; Start 02/15/17 at 12:00 Glucose (Glutose) 22.5 gm Q15M PRN PO DECREASED GLUCOSE; Start 02/15/17 at 12: 00 Dextrose (D50w Syringe) 25 ml Q15M PRN IV DECREASED GLUCOSE; Start 02/15/17 at 12:00 Dextrose (D50w Syringe) 50 ml Q15M PRN IV DECREASED GLUCOSE; Start 02/15/17 at 12:00 Glucagon (Glucagen) 1 mg Q15M PRN IM DECREASED GLUCOSE; Start 02/15/17 at 12:00 Glucose (Glutose) 15 gm Q15M PRN BUCCAL DECREASED GLUCOSE; Start 02/15/17 at 12 :00 Diagnostic Test (Pha) (Accu-Chek) 1 ea 02 XX Last administered on 02/19/17 02: 17; Admin Dose 1 EA; Start 02/16/17 at 02:00 Famotidine (Pepcid) 20 mg DAILY PO Last administered on 02/19/17 09:20; Admin Dose 20 MG; Start 02/15/17 at 21:00 Mupirocin (Bactroban) 1 applic BID TOP Last administered on 02/19/17 09:23; Admin Dose 1 APPLIC; Start 02/17/17 at 10:00 Aspirin (Halfprin) 81 mg DAILY PO Last administered on 02/19/17 09:20; Admin Dose 81 MG; Start 02/18/17 at 09:00 Acetaminophen (Tylenol Tab) 650 mg Q4H PRN PO NON-CARDIAC PAIN LEVEL 1-3; Start 02/17/17 at 12:30 Oxycodone/ Acetaminophen (Percocet (5/ 325)) 1 tab Q4H PRN PO REPORTED NON- CARDIAC PAIN 4-7; Start 02/17/17 at 12:30 Ticagrelor (Brilinta) 90 mg BID PO ; Start 02/19/17 at 21:00 Furosemide (Lasix) 40 mg DAILY@06 PO ; Start 02/20/17 at 06:00 PIYUSH ROWE MD Feb 19, 2017 15:26
[2017-02-19] MEDS: ATORVASTATIN 20 MG TAB PO SCH (21:01)
[2017-02-19] MEDS: TICAGRELOR 90 MG TABLET PO SCH (21:04)
[2017-02-19] MEDS: INSULIN GLARGINE [LANtus] 3 ML PEN SC SCH (21:06)
[2017-02-20] VITALS (21 sets, daily range): BP systolic 119–143; BP diastolic 57–85; PULSE 68–90; RESP 13–33
[2017-02-20] MEDS: ACCU-CHEK XX SCH (02:00)
[2017-02-20 05:12] LABS: CALCIUM 9.3 mg/dl (8.4-10.2); CREATININE 1.67 mg/dl (0.61-1.24); POTASSIUM 3.9 mmol/L (3.5-5.1)
[2017-02-20 05:18] LABS: BASOPHILS % 0.2 % (0.0-2.0); EOSINOPHILS # 0.1 10^3/ul (0.0-0.5); EOSINOPHILS % 1.9 % (0.0-7.0); HEMATOCRIT 29.5 % (42.0-52.0); HEMOGLOBIN 9.7 g/dl (14.0-18.0); LYMPHOCYTES # 1.4 10^3/ul (0.8-2.9); MEAN CORPUSCULAR HEMOGLOBIN 26.4 pg (29.0-33.0); MEAN CORPUSCULAR HGB CONC 32.9 g/dl (32.0-37.0); MEAN CORPUSCULAR VOLUME 80.4 fl (82.0-101.0); MEAN PLATELET VOLUME 10.8 fl (7.4-10.4); MONOCYTE # 0.5 10^3/ul (0.3-0.9); MONOCYTES % 10.4 % (0.0-11.0); NEUTROPHILS % 55.2 % (39.0-77.0); PLATELET COUNT 198 10^3/UL (140-415); RED BLOOD COUNT 3.67 10^6/ul (4.70-6.10); RED CELL DISTRIBUTION WIDTH 17.1 % (11.5-14.5); WHITE BLOOD COUNT 4.8 10^3/ul (4.8-10.8)
[2017-02-20] MEDS: LEVOTHYROXINE 88 MCG TAB PO SCH (06:11)
[2017-02-20] MEDS: FUROSEMIDE 40 MG TAB PO SCH (06:11)
[2017-02-20] MEDS: INSULIN ASPART [NOVOLOG] 3 ML PEN SC SCH ×5 (08:00→21:30)
--- NOTE | 2017-02-20 09:02 | PN ---
Date/Time of Note Date/Time of Note DATE: 02/20/17 TIME: 08:58 Assessment/Plan VTE Prophylaxis VTE Prophylaxis Intervention: heparin Lines/Catheters IV [facility] Saline Lock Urinary Cath still in place: No Assessment/Plan Chief Complaint/Hosp Course ASSESSMENT AND PLAN: An 81-year-old male, prior history of coronary artery disease (CAD) with 4 stents, aortic stenosis with valve replacement in August 2016, hypertension, high cholesterol, hypothyroidism, diabetes, who presents with shortness of breath with signs of congestive heart failure (CHF) exacerbation and left bundle branch block (LBBB) seen on EKG, and non-ST elevation ND, status post stent placement this admission. 1. Shortness of breath- slowly improving. Symptoms are secondary to acute decompensated heart failure, as well as non-ST elevation ND. The patient has a known history of congestive heart failure (CHF) in the past with ejection fraction around 30-35 percent range. As well, he had + NSTEMI with s/p PCI this admission. -Continue Lasix now PO 40 mg daily, keep head of bed greater than 30 degrees. -Monitor ins and outs. morphine p.r.n., nitroglycerin p.r.n., and oxygen supplementation as well. - f/u physical therapy (PT) consult as well. - Holding BALTA inhibitor for now given the patient's mild renal insufficiency. 2. Non-ST elevation ND: Status post stent placement to distal left main. Had some bradycardia and signs of 2-1 AV block last night, but now in NSR. -Continue aspirin and Plavix, follow-up cardiology recommendations, continue current blood pressure medicines, statin 3. History of coronary artery disease (CAD) with prior history of stent times 4. -See #2 4. History of aortic stenosis status post aortic valve replacement earlier this year [facility]. - Again, continue current cardiac medications. - Follow Cardiology recommendations. 5. Renal insufficiency-creatinine at 1.67 today. Baseline appears 1.4 appreciate renal consult. - Monitor ins and outs, follow-up renal recommendations - Follow BMP in the morning. -Holding BALTA inhibitor - Continue other cardiac medications. 6. Diabetes-sugar stable - continue on sliding scale insulin, home Lantus 7. Hypothyroidism. - Continue levothyroxine. 8. High cholesterol-statin 9. Gastrointestinal (GI) prophylaxis with famotidine. 10. Deep venous thrombosis (DVT) prophylaxis. Heparin subcutaneous. Critical care time spent on patient care today equals 45 minutes. Problems: Subjective 24 Hr Interval Summary Free Text/Dictation Denies chest pain. Did have some bradycardia with 2-1 AV block one time last night, presently back to normal sinus rhythm. Exam/Review of Systems Vital Signs Vitals Vital Signs Date Time Temp Pulse Resp B/P Pulse Ox O2 Delivery O2 Flow Rate FiO2 02/20/17 06:00 86 25 143/68 92 Room Air 02/20/17 04:00 98.7 02/19/17 02:48 2.0 02/18/17 02:55 27 Intake and Output 02/19/17 02/19/17 02/20/17 15:00 23:00 07:00 Intake Total 480 ml 320 ml 100 ml Output Total 350 ml 220 ml 650 ml Balance 130 ml 100 ml -550 ml Exam GENERAL: Sitting in chair, no acute distress HEENT: Pupils equal, round, react to light. Extraocular muscles intact. NECK: Supple. No thyromegaly. LUNGS: less crackles heard bilateral bases. No wheezes. CARDIOVASCULAR: S1, S2 heard. No rubs, gallops. ABDOMEN: Soft, nontender, nondistended. Normal bowel sounds. No rebound or guarding. MUSCULOSKELETAL: Trace pitting edema bilateral lower extremities to mid calf. NEUROLOGIC: No focal deficits. Results Result Diagram: 02/20/17 0438 02/20/17 0438 Results 24 hrs Laboratory Tests Test 02/19/17 12:08 02/19/17 17:37 02/19/17 21:03 02/20/17 04:38 Bedside Glucose 162 180 169 White Blood Count 4.8 # Red Blood Count 3.67 L Hemoglobin 9.7 L Hematocrit 29.5 L Mean Corpuscular Volume 80.4 L Mean Corpuscular Hemoglobin 26.4 L Mean Corpuscular Hemoglobin Concent 32.9 Red Cell Distribution Width 17.1 H Platelet Count 198 Mean Platelet Volume 10.8 H Neutrophils % 55.2 Lymphocytes % 30.0 Monocytes % 10.4 Eosinophils % 1.9 Basophils % 0.2 Nucleated Red Blood Cells % 0.0 Neutrophils # (Manual) 2.7 Lymphocytes # 1.4 Monocytes # 0.5 Eosinophils # 0.1 Basophils # 0.0 Nucleated Red Blood Cells # 0.0 Sodium Level 144 Potassium Level 3.9 Chloride Level 108 Carbon Dioxide Level 26 Anion Gap 14 Blood Urea Nitrogen 27 H Creatinine 1.67 H Glucose Level 99 Calcium Level 9.3 Test 02/20/17 08:21 Bedside Glucose 115 Medications Medications Current Medications Ondansetron HCl (Zofran Inj) 4 mg Q6H PRN IV NAUSEA AND/OR VOMITING; Start at 11:30 Acetaminophen (Tylenol Tab) 650 mg Q6H PRN PO PAIN LEVEL 1-3 OR FEVER; Start at 11:30 Acetaminophen/ Hydrocodone Bitart (Julian (5/325)) 1 tab Q6H PRN PO MODERATE PAIN LEVEL 4-6; Start 02/15/17 at 11:30 Morphine Sulfate (morphine) 2 mg Q4H PRN IV SEVERE PAIN LEVEL 7-10; Start 02/15 at 11:30 Docusate Sodium (Colace) 100 mg Q12H PRN PO CONSTIPATION; Start 02/15/17 at 11: 30 Magnesium Hydroxide (Milk Of Mag) 30 ml DAILY PRN PO CONSTIPATION; Start at 11:30 Sodium Biphosphate/ Sodium Phosphate (Fleet Enema) 133 ml DAILY PRN [place] CONSTIPATION; Start 02/15/17 at 11:30 Heparin Sodium (Porcine) (Heparin (5000 Units/0.5 ml)) 5,000 unit Q12 SC Last administered on 02/19/17 21:05; Admin Dose 5,000 UNIT; Start 02/15/17 at 21:00 Lorazepam 0.5 mg 0.5 mg Q6H PRN IV ANXIETY; Start 02/15/17 at 11:30 Levofloxacin/ Dextrose (Levaquin 750 Mg/ D5W 150 ml (Pmx)) 150 ml @ 100 mls/hr Q48H IVPB Last administered on 02/18/17 12:17; Admin Dose 100 MLS/HR; Start at 13:00 Hydralazine HCl (Apresoline) 10 mg Q6H PRN IV ELEVATED BLOOD PRESSURE; Start at 11:30 Nitroglycerin (Nitroglycerin (Sl Tab) 0.4 Mg) 1 tab Q5M PRN SL ANGINA; Start at 11:30 Carvedilol (Coreg) 3.125 mg BID PO Last administered on 02/19/17 21:02; Admin Dose 3.125 MG; Start 02/15/17 at 21:00 Folic Acid (Folic Acid) 1 mg DAILY PO Last administered on 02/19/17 09:20; Admin Dose 1 MG; Start 02/16/17 at 09:00 Insulin Glargine (Lantus) 20 unit QHS SC Last administered on 02/19/17 21:06; Admin Dose 20 UNIT; Start 02/15/17 at 21:00 Losartan Potassium (Cozaar) 50 mg DAILY PO Last administered on 02/17/17 09:17 ; Admin Dose 50 MG; Start 02/15/17 at 13:00; Status Future Hold Atorvastatin Calcium (Lipitor) 20 mg DAILY@21 PO Last administered on 02/19/17 21:01; Admin Dose 20 MG; Start 02/15/17 at 21:00 Glucose (Glutose) 15 gm Q15M PRN PO DECREASED GLUCOSE; Start 02/15/17 at 12:00 Glucose (Glutose) 22.5 gm Q15M PRN PO DECREASED GLUCOSE; Start 02/15/17 at 12: 00 Dextrose (D50w Syringe) 25 ml Q15M PRN IV DECREASED GLUCOSE; Start 02/15/17 at 12:00 Dextrose (D50w Syringe) 50 ml Q15M PRN IV DECREASED GLUCOSE; Start 02/15/17 at 12:00 Glucagon (Glucagen) 1 mg Q15M PRN IM DECREASED GLUCOSE; Start 02/15/17 at 12:00 Glucose (Glutose) 15 gm Q15M PRN BUCCAL DECREASED GLUCOSE; Start 02/15/17 at 12 :00 Diagnostic Test (Pha) (Accu-Chek) 1 ea 02 XX Last administered on 02/19/17 02: 17; Admin Dose 1 EA; Start 02/16/17 at 02:00 Famotidine (Pepcid) 20 mg DAILY PO Last administered on 02/19/17 09:20; Admin Dose 20 MG; Start 02/15/17 at 21:00 Mupirocin (Bactroban) 1 applic BID TOP Last administered on 02/19/17 21:01; Admin Dose 1 APPLIC; Start 02/17/17 at 10:00 Aspirin (Halfprin) 81 mg DAILY PO Last administered on 02/19/17 09:20; Admin Dose 81 MG; Start 02/18/17 at 09:00 Acetaminophen (Tylenol Tab) 650 mg Q4H PRN PO NON-CARDIAC PAIN LEVEL 1-3; Start 02/17/17 at 12:30 Oxycodone/ Acetaminophen (Percocet (5/ 325)) 1 tab Q4H PRN PO REPORTED NON- CARDIAC PAIN 4-7; Start 02/17/17 at 12:30 Ticagrelor (Brilinta) 90 mg BID PO Last administered on 02/19/17 21:04; Admin Dose 90 MG; Start 02/19/17 at 21:00 Furosemide (Lasix) 40 mg DAILY@06 PO Last administered on 02/20/17 06:11; Admin Dose 40 MG; Start 02/20/17 at 06:00 GEORGINA HUTCHISON Feb 20, 2017 09:01
[2017-02-20] MEDS: MUPIROCIN 2% 22 GM OINT TOP SCH ×2 (09:21→21:00)
[2017-02-20] MEDS: ASPIRIN (EC) 81 MG TAB PO SCH (09:21)
[2017-02-20] MEDS: FAMOTIDINE 20 MG TAB PO SCH (09:21)
[2017-02-20] MEDS: FOLIC ACID 1 MG TAB PO SCH (09:22)
[2017-02-20] MEDS: TICAGRELOR 90 MG TABLET PO SCH ×2 (09:24→21:07)
[2017-02-20] MEDS: HEPARIN 5,000 UNIT/0.5 ML VIAL SC SCH ×2 (09:24→20:51)
--- NOTE | 2017-02-20 10:09 | PN ---
Date/Time of Note Date/Time of Note DATE: 02/20/17 TIME: 10:07 Assessment/Plan VTE Prophylaxis VTE Prophylaxis Intervention: other Lines/Catheters IV Catheter Type (from [facility]): Saline Lock Urinary Cath still in place: No Assessment/Plan Chief Complaint/Hosp Course SUBJECTIVE DATA: s/p cardiac cath with PCI and stent placement. cardiac strips were reviewed. The patient has good urinary output. currently in icu no nausea, hematuria, melena, rash, chest pain, dyspnea, diaphoresis or seizure like activities imaging studies were reviewed d/w cardiology OBJECTIVE DATA: HEENT: Head is normocephalic. NECK: Supple. HEART: Regular rate. LUNGS: Show diminished breath sounds at the base. ABDOMEN: Soft, nontender to palpation. No rebound or guarding. EXTREMITIES: Negative for clubbing, cyanosis. No edema. DERMATOLOGIC: Clean. No rashes. MUSCULOSKELETAL: No joint effusion. NEUROLOGIC: No change in exam. MEDICATIONS: Reviewed. ASSESSMENT AND PLAN: 1. Nonoliguric acute kidney injury on top of chronic kidney disease with previous baseline creatinine 1.4 mg/dL. Etiology of acute kidney injury is secondary to hemodynamics. The patient is status post cardiac cath with 126 cc of dye used. Renal function is stable. no evidence contrast nephropathy. no change in lasix yet. 2. Hypernatremia, resolved. 3. Anemia. Monitor H and H levels. 4. Mineral bone disorder. Continue to monitor calcium and phosphorus levels. 5. Coronary artery disease, status post percutaneous coronary intervention. Continue current medical management. 6. Acute respiratory failure secondary to congestive heart failure. Continue to monitor closely. 7. Aortic stenosis, status post aortic valve replacement. 8. Diabetes. Continue Accu-Cheks and insulin sliding scale. 9. Hypothyroidism. Continue Synthroid. Problems: Exam/Review of Systems Vital Signs Vitals Vital Signs Date Time Temp Pulse Resp B/P Pulse Ox O2 Delivery O2 Flow Rate FiO2 02/20/17 08:00 81 02/20/17 06:00 25 143/68 92 Room Air 02/20/17 04:00 98.7 02/19/17 02:48 2.0 02/18/17 02:55 27 Intake and Output 02/19/17 02/19/17 02/20/17 15:00 23:00 07:00 Intake Total 480 ml 320 ml 100 ml Output Total 350 ml 220 ml 650 ml Balance 130 ml 100 ml -550 ml Results Result Diagram: 02/20/17 0438 02/20/17 0438 Results 24 hrs Laboratory Tests Test 02/19/17 12:08 02/19/17 17:37 02/19/17 21:03 02/20/17 04:38 Bedside Glucose 162 180 169 White Blood Count 4.8 # Red Blood Count 3.67 L Hemoglobin 9.7 L Hematocrit 29.5 L Mean Corpuscular Volume 80.4 L Mean Corpuscular Hemoglobin 26.4 L Mean Corpuscular Hemoglobin Concent 32.9 Red Cell Distribution Width 17.1 H Platelet Count 198 Mean Platelet Volume 10.8 H Neutrophils % 55.2 Lymphocytes % 30.0 Monocytes % 10.4 Eosinophils % 1.9 Basophils % 0.2 Nucleated Red Blood Cells % 0.0 Neutrophils # (Manual) 2.7 Lymphocytes # 1.4 Monocytes # 0.5 Eosinophils # 0.1 Basophils # 0.0 Nucleated Red Blood Cells # 0.0 Sodium Level 144 Potassium Level 3.9 Chloride Level 108 Carbon Dioxide Level 26 Anion Gap 14 Blood Urea Nitrogen 27 H Creatinine 1.67 H Glucose Level 99 Calcium Level 9.3 Test 02/20/17 08:21 Bedside Glucose 115 Medications Medications Current Medications Ondansetron HCl (Zofran Inj) 4 mg Q6H PRN IV NAUSEA AND/OR VOMITING; Start at 11:30 Acetaminophen (Tylenol Tab) 650 mg Q6H PRN PO PAIN LEVEL 1-3 OR FEVER; Start at 11:30 Acetaminophen/ Hydrocodone Bitart ([place] (5/325)) 1 tab Q6H PRN PO MODERATE PAIN LEVEL 4-6; Start 02/15/17 at 11:30 Morphine Sulfate (morphine) 2 mg Q4H PRN IV SEVERE PAIN LEVEL 7-10; Start 02/15 at 11:30 Docusate Sodium (Colace) 100 mg Q12H PRN PO CONSTIPATION; Start 02/15/17 at 11: 30 Magnesium Hydroxide (Milk Of Mag) 30 ml DAILY PRN PO CONSTIPATION; Start at 11:30 Sodium Biphosphate/ Sodium Phosphate (Fleet Enema) 133 ml DAILY PRN [place] CONSTIPATION; Start 02/15/17 at 11:30 Heparin Sodium (Porcine) (Heparin (5000 Units/0.5 ml)) 5,000 unit Q12 SC Last administered on 02/20/17 09:24; Admin Dose 5,000 UNIT; Start 02/15/17 at 21:00 Lorazepam 0.5 mg 0.5 mg Q6H PRN IV ANXIETY; Start 02/15/17 at 11:30 Levofloxacin/ Dextrose (Levaquin 750 Mg/ D5W 150 ml (Pmx)) 150 ml @ 100 mls/hr Q48H IVPB Last administered on 02/18/17 12:17; Admin Dose 100 MLS/HR; Start at 13:00 Hydralazine HCl (Apresoline) 10 mg Q6H PRN IV ELEVATED BLOOD PRESSURE; Start at 11:30 Nitroglycerin (Nitroglycerin (Sl Tab) 0.4 Mg) 1 tab Q5M PRN SL ANGINA; Start at 11:30 Carvedilol (Coreg) 3.125 mg BID PO Last administered on 02/20/17 09:22; Admin Dose 3.125 MG; Start 02/15/17 at 21:00 Folic Acid (Folic Acid) 1 mg DAILY PO Last administered on 02/20/17 09:22; Admin Dose 1 MG; Start 02/16/17 at 09:00 Insulin Glargine (Lantus) 20 unit QHS SC Last administered on 02/19/17 21:06; Admin Dose 20 UNIT; Start 02/15/17 at 21:00 Losartan Potassium (Cozaar) 50 mg DAILY PO Last administered on 02/17/17 09:17 ; Admin Dose 50 MG; Start 02/15/17 at 13:00; Status Future Hold Atorvastatin Calcium (Lipitor) 20 mg DAILY@21 PO Last administered on 02/19/17 21:01; Admin Dose 20 MG; Start 02/15/17 at 21:00 Glucose (Glutose) 15 gm Q15M PRN PO DECREASED GLUCOSE; Start 02/15/17 at 12:00 Glucose (Glutose) 22.5 gm Q15M PRN PO DECREASED GLUCOSE; Start 02/15/17 at 12: 00 Dextrose (D50w Syringe) 25 ml Q15M PRN IV DECREASED GLUCOSE; Start 02/15/17 at 12:00 Dextrose (D50w Syringe) 50 ml Q15M PRN IV DECREASED GLUCOSE; Start 02/15/17 at 12:00 Glucagon (Glucagen) 1 mg Q15M PRN IM DECREASED GLUCOSE; Start 02/15/17 at 12:00 Glucose (Glutose) 15 gm Q15M PRN BUCCAL DECREASED GLUCOSE; Start 02/15/17 at 12 :00 Diagnostic Test (Pha) (Accu-Chek) 1 ea 02 XX Last administered on 02/19/17 02: 17; Admin Dose 1 EA; Start 02/16/17 at 02:00 Famotidine (Pepcid) 20 mg DAILY PO Last administered on 02/20/17 09:21; Admin Dose 20 MG; Start 02/15/17 at 21:00 Mupirocin (Bactroban) 1 applic BID TOP Last administered on 02/20/17 09:21; Admin Dose 1 APPLIC; Start 02/17/17 at 10:00 Aspirin (Halfprin) 81 mg DAILY PO Last administered on 02/20/17 09:21; Admin Dose 81 MG; Start 02/18/17 at 09:00 Acetaminophen (Tylenol Tab) 650 mg Q4H PRN PO NON-CARDIAC PAIN LEVEL 1-3; Start 02/17/17 at 12:30 Oxycodone/ Acetaminophen (Percocet (5/ 325)) 1 tab Q4H PRN PO REPORTED NON- CARDIAC PAIN 4-7; Start 02/17/17 at 12:30 Ticagrelor (Brilinta) 90 mg BID PO Last administered on 02/20/17 09:24; Admin Dose 90 MG; Start 02/19/17 at 21:00 Furosemide (Lasix) 40 mg DAILY@06 PO Last administered on 02/20/17 06:11; Admin Dose 40 MG; Start 02/20/17 at 06:00 KAMILLA BOYD DO Feb 20, 2017 10:08
--- NOTE | 2017-02-20 11:30 | CONS ---
Date/Time of Note Date/Time of Note DATE: 02/20/17 TIME: 11:28 Consult Date/Type/Reason Admit Date/Time Feb 15, 2017 at 10:26 Type of Consultation: Pulmonary Ordering Provider: GEORGINA HUTCHISON Subjective Bradycardia and second-degree heart block overnight. Objective Vital Signs Date Time Temp Pulse Resp B/P Pulse Ox O2 Delivery O2 Flow Rate FiO2 02/20/17 10:00 83 22 131/82 100 Room Air 02/20/17 08:00 97.9 02/19/17 02:48 2.0 02/18/17 02:55 27 Intake and Output 02/19/17 02/19/17 02/20/17 15:00 23:00 07:00 Intake Total 480 ml 320 ml 100 ml Output Total 350 ml 220 ml 650 ml Balance 130 ml 100 ml -550 ml Exam PHYSICAL EXAMINATION: GENERAL: On examination, elderly appearing gentleman, comfortable at rest, in no acute distress. VITAL SIGNS: NECK: JVD is elevated. No lymphadenopathy. CARDIAC: S1, S2. A 2/6 systolic ejection murmur. CHEST: Diminished air entry bilaterally. No rales. ABDOMEN: Soft, nontender. No guarding or rebound. EXTREMITIES: No clubbing, cyanosis or edema. NEUROLOGIC: Generalized weakness. Results/Medications Result Diagram: 02/20/17 0438 02/20/17 0438 Results 24 hrs Laboratory Tests Test 02/19/17 12:08 02/19/17 17:37 02/19/17 21:03 02/20/17 04:38 Bedside Glucose 162 180 169 White Blood Count 4.8 # Red Blood Count 3.67 L Hemoglobin 9.7 L Hematocrit 29.5 L Mean Corpuscular Volume 80.4 L Mean Corpuscular Hemoglobin 26.4 L Mean Corpuscular Hemoglobin Concent 32.9 Red Cell Distribution Width 17.1 H Platelet Count 198 Mean Platelet Volume 10.8 H Neutrophils % 55.2 Lymphocytes % 30.0 Monocytes % 10.4 Eosinophils % 1.9 Basophils % 0.2 Nucleated Red Blood Cells % 0.0 Neutrophils # (Manual) 2.7 Lymphocytes # 1.4 Monocytes # 0.5 Eosinophils # 0.1 Basophils # 0.0 Nucleated Red Blood Cells # 0.0 Sodium Level 144 Potassium Level 3.9 Chloride Level 108 Carbon Dioxide Level 26 Anion Gap 14 Blood Urea Nitrogen 27 H Creatinine 1.67 H Glucose Level 99 Calcium Level 9.3 Test 02/20/17 08:21 Bedside Glucose 115 Medications Current Medications Ondansetron HCl (Zofran Inj) 4 mg Q6H PRN IV NAUSEA AND/OR VOMITING; Start at 11:30 Acetaminophen (Tylenol Tab) 650 mg Q6H PRN PO PAIN LEVEL 1-3 OR FEVER; Start at 11:30 Acetaminophen/ Hydrocodone Bitart (Randolph (5/325)) 1 tab Q6H PRN PO MODERATE PAIN LEVEL 4-6; Start 02/15/17 at 11:30 Morphine Sulfate (morphine) 2 mg Q4H PRN IV SEVERE PAIN LEVEL 7-10; Start 02/15 at 11:30 Docusate Sodium (Colace) 100 mg Q12H PRN PO CONSTIPATION; Start 02/15/17 at 11: 30 Magnesium Hydroxide (Milk Of Mag) 30 ml DAILY PRN PO CONSTIPATION; Start at 11:30 Sodium Biphosphate/ Sodium Phosphate (Fleet Enema) 133 ml DAILY PRN [place] CONSTIPATION; Start 02/15/17 at 11:30 Heparin Sodium (Porcine) (Heparin (5000 Units/0.5 ml)) 5,000 unit Q12 SC Last administered on 02/20/17 09:24; Admin Dose 5,000 UNIT; Start 02/15/17 at 21:00 Lorazepam 0.5 mg 0.5 mg Q6H PRN IV ANXIETY; Start 02/15/17 at 11:30 Levofloxacin/ Dextrose (Levaquin 750 Mg/ D5W 150 ml (Pmx)) 150 ml @ 100 mls/hr Q48H IVPB Last administered on 02/18/17 12:17; Admin Dose 100 MLS/HR; Start at 13:00 Hydralazine HCl (Apresoline) 10 mg Q6H PRN IV ELEVATED BLOOD PRESSURE; Start at 11:30 Nitroglycerin (Nitroglycerin (Sl Tab) 0.4 Mg) 1 tab Q5M PRN SL ANGINA; Start at 11:30 Carvedilol (Coreg) 3.125 mg BID PO Last administered on 02/20/17 09:22; Admin Dose 3.125 MG; Start 02/15/17 at 21:00 Folic Acid (Folic Acid) 1 mg DAILY PO Last administered on 02/20/17 09:22; Admin Dose 1 MG; Start 02/16/17 at 09:00 Insulin Glargine (Lantus) 20 unit QHS SC Last administered on 02/19/17 21:06; Admin Dose 20 UNIT; Start 02/15/17 at 21:00 Losartan Potassium (Cozaar) 50 mg DAILY PO Last administered on 02/17/17 09:17 ; Admin Dose 50 MG; Start 02/15/17 at 13:00; Status Future Hold Atorvastatin Calcium (Lipitor) 20 mg DAILY@21 PO Last administered on 02/19/17 21:01; Admin Dose 20 MG; Start 02/15/17 at 21:00 Glucose (Glutose) 15 gm Q15M PRN PO DECREASED GLUCOSE; Start 02/15/17 at 12:00 Glucose (Glutose) 22.5 gm Q15M PRN PO DECREASED GLUCOSE; Start 02/15/17 at 12: 00 Dextrose (D50w Syringe) 25 ml Q15M PRN IV DECREASED GLUCOSE; Start 02/15/17 at 12:00 Dextrose (D50w Syringe) 50 ml Q15M PRN IV DECREASED GLUCOSE; Start 02/15/17 at 12:00 Glucagon (Glucagen) 1 mg Q15M PRN IM DECREASED GLUCOSE; Start 02/15/17 at 12:00 Glucose (Glutose) 15 gm Q15M PRN BUCCAL DECREASED GLUCOSE; Start 02/15/17 at 12 :00 Diagnostic Test (Pha) (Accu-Chek) 1 ea 02 XX Last administered on 02/19/17 02: 17; Admin Dose 1 EA; Start 02/16/17 at 02:00 Famotidine (Pepcid) 20 mg DAILY PO Last administered on 02/20/17 09:21; Admin Dose 20 MG; Start 02/15/17 at 21:00 Mupirocin (Bactroban) 1 applic BID TOP Last administered on 02/20/17 09:21; Admin Dose 1 APPLIC; Start 02/17/17 at 10:00 Aspirin (Halfprin) 81 mg DAILY PO Last administered on 02/20/17 09:21; Admin Dose 81 MG; Start 02/18/17 at 09:00 Acetaminophen (Tylenol Tab) 650 mg Q4H PRN PO NON-CARDIAC PAIN LEVEL 1-3; Start 02/17/17 at 12:30 Oxycodone/ Acetaminophen (Percocet (5/ 325)) 1 tab Q4H PRN PO REPORTED NON- CARDIAC PAIN 4-7; Start 02/17/17 at 12:30 Ticagrelor (Brilinta) 90 mg BID PO Last administered on 02/20/17 09:24; Admin Dose 90 MG; Start 02/19/17 at 21:00 Furosemide (Lasix) 40 mg DAILY@06 PO Last administered on 02/20/17 06:11; Admin Dose 40 MG; Start 02/20/17 at 06:00 Assessment/Plan Chief Complaint/Hosp Course IMPRESSION: 1. Hypoxemic respiratory failure likely secondary to acute on chronic left ventricular heart failure.Clinically improved with diuretics. 2. Possible community-acquired pneumonia. 3. History of aortic valve replacement status post transcatheter aortic valve replacement. Status post PCI with stent placement. Concern for possible second-degree heart block. PLAN: 1. Continue cardiac recommendations, review medications 2. Continue supplemental O2. 3. Ambulate as tolerated 4. Encourage out of bed. 5. DVT and GI prophylaxis. Follow-up with me as an outpatient. Problems: YOBANY PALUMBO MD, [facility] Feb 20, 2017 11:30
[2017-02-20] MEDS: LEVOFLOXACIN 750MG/D5W (PMX) 150 ML IVPB SCH (13:02)
[2017-02-20] MEDS: ATORVASTATIN 20 MG TAB PO SCH (20:47)
[2017-02-20] MEDS: LATANOPROST 0.005% 2.5 ML OPH BOTH EYES SCH (21:00)
[2017-02-20] MEDS: INSULIN GLARGINE [LANtus] 3 ML PEN SC SCH (21:00)
[2017-02-21] VITALS (19 sets, daily range): BP systolic 115–138; BP diastolic 58–73; PULSE 30–80; RESP 17–19
[2017-02-21] MEDS: ACCU-CHEK XX SCH (02:00)
[2017-02-21] MEDS: FUROSEMIDE 40 MG TAB PO SCH (05:50)
[2017-02-21 08:05] LABS: BASOPHILS % 0.2 % (0.0-2.0); EOSINOPHILS # 0.1 10^3/ul (0.0-0.5); EOSINOPHILS % 1.5 % (0.0-7.0); HEMATOCRIT 29.3 % (42.0-52.0); LYMPHOCYTES # 1.6 10^3/ul (0.8-2.9); LYMPHOCYTES % 33.7 % (15.0-51.0); MEAN CORPUSCULAR HEMOGLOBIN 27.5 pg (29.0-33.0); MEAN CORPUSCULAR HGB CONC 34.1 g/dl (32.0-37.0); MEAN CORPUSCULAR VOLUME 80.5 fl (82.0-101.0); MEAN PLATELET VOLUME 10.2 fl (7.4-10.4); MONOCYTE # 0.4 10^3/ul (0.3-0.9); MONOCYTES % 8.2 % (0.0-11.0); NEUTROPHILS % 55.1 % (39.0-77.0); PLATELET COUNT 200 10^3/UL (140-415); RED BLOOD COUNT 3.64 10^6/ul (4.70-6.10); RED CELL DISTRIBUTION WIDTH 17.1 % (11.5-14.5); WHITE BLOOD COUNT 4.8 10^3/ul (4.8-10.8)
[2017-02-21] MEDS: LEVOTHYROXINE 88 MCG TAB PO SCH (08:10)
[2017-02-21 08:31] LABS: CALCIUM 9.6 mg/dl (8.4-10.2); CREATININE 1.54 mg/dl (0.61-1.24); POTASSIUM 3.9 mmol/L (3.5-5.1)
[2017-02-21] MEDS: ASPIRIN (EC) 81 MG TAB PO SCH (08:42)
[2017-02-21] MEDS: FAMOTIDINE 20 MG TAB PO SCH (08:42)
[2017-02-21] MEDS: FOLIC ACID 1 MG TAB PO SCH (08:42)
[2017-02-21] MEDS: HEPARIN 5,000 UNIT/0.5 ML VIAL SC SCH ×2 (09:03→21:01)
[2017-02-21] MEDS: TICAGRELOR 90 MG TABLET PO SCH ×2 (09:04→21:00)
[2017-02-21] MEDS: MUPIROCIN 2% 22 GM OINT TOP SCH ×2 (10:44→21:09)
--- NOTE | 2017-02-21 11:28 | CONS ---
Date/Time of Note Date/Time of Note DATE: 02/21/17 TIME: 11:27 Consult Date/Type/Reason Admit Date/Time Feb 15, 2017 at 10:26 Type of Consultation: Pulmonary Ordering Provider: GEORGINA HUTCHISON Subjective Patient remains comfortable this morning. No new events Objective Vital Signs Date Time Temp Pulse Resp B/P Pulse Ox O2 Delivery O2 Flow Rate FiO2 02/21/17 11:21 98.6 76 18 116/66 98 02/21/17 06:09 2.0 02/20/17 17:00 Room Air 02/18/17 02:55 27 Intake and Output 02/20/17 02/20/17 02/21/17 15:00 23:00 07:00 Intake Total 840 ml 360 ml 300 ml Balance 840 ml 360 ml 300 ml Exam PHYSICAL EXAMINATION GENERAL APPEARANCE: Well-nourished well-developed gentleman comfortable at rest comfortable at rest. No acute distress. VITAL SIGNS: NECK: Supple. No JVD, lymphadenopathy. CARDIAC: S1, S2. No added sounds or murmurs. CHEST: Diminished air entry bilaterally. ABDOMEN: Soft, nontender. No guarding or rebound. EXTREMITIES: No cyanosis, clubbing or edema. NEUROLOGIC: Grossly intact. There are no focal deficits. Results/Medications Result Diagram: 02/21/17 0746 02/21/17 0746 Results 24 hrs Laboratory Tests Test 02/20/17 12:17 02/20/17 17:17 02/20/17 21:01 02/21/17 07:46 Bedside Glucose 139 132 154 White Blood Count 4.8 Red Blood Count 3.64 L Hemoglobin 10.0 L Hematocrit 29.3 L Mean Corpuscular Volume 80.5 L Mean Corpuscular Hemoglobin 27.5 L Mean Corpuscular Hemoglobin Concent 34.1 Red Cell Distribution Width 17.1 H Platelet Count 200 Mean Platelet Volume 10.2 Neutrophils % 55.1 Lymphocytes % 33.7 Monocytes % 8.2 Eosinophils % 1.5 Basophils % 0.2 Nucleated Red Blood Cells % 0.0 Neutrophils # (Manual) 2.6 Lymphocytes # 1.6 Monocytes # 0.4 Eosinophils # 0.1 Basophils # 0.0 Nucleated Red Blood Cells # 0.0 Sodium Level 143 Potassium Level 3.9 Chloride Level 105 Carbon Dioxide Level 27 Anion Gap 15 Blood Urea Nitrogen 28 H Creatinine 1.54 H Glucose Level 72 Calcium Level 9.6 Test 02/21/17 08:38 Bedside Glucose 94 Medications Current Medications Ondansetron HCl (Zofran Inj) 4 mg Q6H PRN IV NAUSEA AND/OR VOMITING; Start at 11:30 Acetaminophen (Tylenol Tab) 650 mg Q6H PRN PO PAIN LEVEL 1-3 OR FEVER; Start at 11:30 Acetaminophen/ Hydrocodone Bitart ([place] (5/325)) 1 tab Q6H PRN PO MODERATE PAIN LEVEL 4-6; Start 02/15/17 at 11:30 Morphine Sulfate (morphine) 2 mg Q4H PRN IV SEVERE PAIN LEVEL 7-10; Start 02/15 at 11:30 Docusate Sodium (Colace) 100 mg Q12H PRN PO CONSTIPATION; Start 02/15/17 at 11: 30 Magnesium Hydroxide (Milk Of Mag) 30 ml DAILY PRN PO CONSTIPATION; Start at 11:30 Sodium Biphosphate/ Sodium Phosphate (Fleet Enema) 133 ml DAILY PRN [place] CONSTIPATION; Start 02/15/17 at 11:30 Heparin Sodium (Porcine) (Heparin (5000 Units/0.5 ml)) 5,000 unit Q12 SC Last administered on 02/21/17 09:03; Admin Dose 5,000 UNIT; Start 02/15/17 at 21:00 Hydralazine HCl (Apresoline) 10 mg Q6H PRN IV ELEVATED BLOOD PRESSURE; Start at 11:30 Nitroglycerin (Nitroglycerin (Sl Tab) 0.4 Mg) 1 tab Q5M PRN SL ANGINA; Start at 11:30 Carvedilol (Coreg) 3.125 mg BID PO Last administered on 02/21/17 08:43; Admin Dose 3.125 MG; Start 02/15/17 at 21:00 Folic Acid (Folic Acid) 1 mg DAILY PO Last administered on 02/21/17 08:42; Admin Dose 1 MG; Start 02/16/17 at 09:00 Insulin Glargine (Lantus) 20 unit QHS SC Last administered on 02/20/17 21:00; Admin Dose 20 UNIT; Start 02/15/17 at 21:00 Losartan Potassium (Cozaar) 50 mg DAILY PO Last administered on 02/17/17 09:17 ; Admin Dose 50 MG; Start 02/15/17 at 13:00; Status Future Hold Atorvastatin Calcium (Lipitor) 20 mg DAILY@21 PO Last administered on 02/20/17 20:47; Admin Dose 20 MG; Start 02/15/17 at 21:00 Glucose (Glutose) 15 gm Q15M PRN PO DECREASED GLUCOSE; Start 02/15/17 at 12:00 Glucose (Glutose) 22.5 gm Q15M PRN PO DECREASED GLUCOSE; Start 02/15/17 at 12: 00 Dextrose (D50w Syringe) 25 ml Q15M PRN IV DECREASED GLUCOSE; Start 02/15/17 at 12:00 Dextrose (D50w Syringe) 50 ml Q15M PRN IV DECREASED GLUCOSE; Start 02/15/17 at 12:00 Glucagon (Glucagen) 1 mg Q15M PRN IM DECREASED GLUCOSE; Start 02/15/17 at 12:00 Glucose (Glutose) 15 gm Q15M PRN BUCCAL DECREASED GLUCOSE; Start 02/15/17 at 12 :00 Diagnostic Test (Pha) (Accu-Chek) 1 ea 02 XX Last administered on 02/19/17 02: 17; Admin Dose 1 EA; Start 02/16/17 at 02:00 Famotidine (Pepcid) 20 mg DAILY PO Last administered on 02/21/17 08:42; Admin Dose 20 MG; Start 02/15/17 at 21:00 Mupirocin (Bactroban) 1 applic BID TOP Last administered on 02/21/17 10:44; Admin Dose 1 APPLIC; Start 02/17/17 at 10:00 Aspirin (Halfprin) 81 mg DAILY PO Last administered on 02/21/17 08:42; Admin Dose 81 MG; Start 02/18/17 at 09:00 Acetaminophen (Tylenol Tab) 650 mg Q4H PRN PO NON-CARDIAC PAIN LEVEL 1-3; Start 02/17/17 at 12:30 Oxycodone/ Acetaminophen (Percocet (5/ 325)) 1 tab Q4H PRN PO REPORTED NON- CARDIAC PAIN 4-7; Start 02/17/17 at 12:30 Ticagrelor (Brilinta) 90 mg BID PO Last administered on 9/4/17at 09:04; Admin Dose 90 MG; Start 02/19/17 at 21:00 Furosemide (Lasix) 40 mg DAILY@06 PO Last administered on 02/21/17 05:50; Admin Dose 40 MG; Start 02/20/17 at 06:00 Latanoprost (Xalatan) 1 drop HS BOTH EYES Last administered on 02/20/17t 21:00; Admin Dose 1 DROP; Start 02/20/17 at 21:00 Assessment/Plan Chief Complaint/Hosp Course IMPRESSION: 1. Hypoxemic respiratory failure likely secondary to acute on chronic left ventricular heart failure.Clinically improved with diuretics. 2. Possible community-acquired pneumonia. 3. History of aortic valve replacement status post transcatheter aortic valve replacement. Status post PCI with stent placement. Concern for possible second-degree heart block. PLAN: 1. Continue cardiac recommendations, review medications 2. Continue supplemental O2. 3. Ambulate as tolerated 4. Encourage out of bed. 5. DVT and GI prophylaxis. DC planning okay from pulmonary standpoint Problems: YOBANY PALUMBO MD, [facility] Feb 21, 2017 11:28
[2017-02-21] MEDS: INSULIN ASPART [NOVOLOG] 3 ML PEN SC SCH ×3 (11:50→21:00)
--- NOTE | 2017-02-21 17:29 | PN ---
Date/Time of Note Date/Time of Note DATE: 02/21/17 TIME: 17:21 Assessment/Plan VTE Prophylaxis VTE Prophylaxis Intervention: SCD's Lines/Catheters IV Catheter Type (from Nrs): Peripheral IV Urinary Cath still in place: No Assessment/Plan Assessment/Plan 81 yo M with pmhx CAD sp PCI, sp AVR admitted for SOB found to have acute on chronic systolic HF and NSETMI #NSTEMI: sp PCI from cardiology, plavix changed to Brilinta #acute on chronic CHF: cont lasix #KEN on CKD: renal on cs, acei on hold #DM2: cont home lantus #hypothyroid: cont home statin #HTN, HL, h/o CAD: cont home meds except acei as noted above and change from plavix to Brilinta stopping levoflox as rationale for its use unclear discharge when ok'd by cardiology Subjective 24 Hr Interval Summary Free Text/Dictation No complaints Exam/Review of Systems Vital Signs Vitals Vital Signs Date Time Temp Pulse Resp B/P Pulse Ox O2 Delivery O2 Flow Rate FiO2 02/21/17 16:02 80 02/21/17 15:04 98.4 18 133/73 99 02/21/17 06:09 2.0 02/20/17 17:00 Room Air 02/18/17 02:55 27 Intake and Output 02/20/17 02/20/17 02/21/17 15:00 23:00 07:00 Intake Total 840 ml 360 ml 300 ml Balance 840 ml 360 ml 300 ml Exam nad no mrg abd soft no rashes no edema Results Result Diagram: 02/21/17 0746 02/21/17 0746 Results 24 hrs Laboratory Tests Test 02/20/17 21:01 02/21/17 07:46 02/21/17 08:38 02/21/17 12:32 Bedside Glucose 154 94 82 White Blood Count 4.8 Red Blood Count 3.64 L Hemoglobin 10.0 L Hematocrit 29.3 L Mean Corpuscular Volume 80.5 L Mean Corpuscular Hemoglobin 27.5 L Mean Corpuscular Hemoglobin Concent 34.1 Red Cell Distribution Width 17.1 H Platelet Count 200 Mean Platelet Volume 10.2 Neutrophils % 55.1 Lymphocytes % 33.7 Monocytes % 8.2 Eosinophils % 1.5 Basophils % 0.2 Nucleated Red Blood Cells % 0.0 Neutrophils # (Manual) 2.6 Lymphocytes # 1.6 Monocytes # 0.4 Eosinophils # 0.1 Basophils # 0.0 Nucleated Red Blood Cells # 0.0 Sodium Level 143 Potassium Level 3.9 Chloride Level 105 Carbon Dioxide Level 27 Anion Gap 15 Blood Urea Nitrogen 28 H Creatinine 1.54 H Glucose Level 72 Calcium Level 9.6 Medications Medications Current Medications Ondansetron HCl (Zofran Inj) 4 mg Q6H PRN IV NAUSEA AND/OR VOMITING; Start at 11:30 Acetaminophen (Tylenol Tab) 650 mg Q6H PRN PO PAIN LEVEL 1-3 OR FEVER; Start at 11:30 Acetaminophen/ Hydrocodone Bitart ([place] (5/325)) 1 tab Q6H PRN PO MODERATE PAIN LEVEL 4-6; Start 02/15/17 at 11:30 Morphine Sulfate (morphine) 2 mg Q4H PRN IV SEVERE PAIN LEVEL 7-10; Start 02/15 at 11:30 Docusate Sodium (Colace) 100 mg Q12H PRN PO CONSTIPATION; Start 02/15/17 at 11: 30 Magnesium Hydroxide (Milk Of Mag) 30 ml DAILY PRN PO CONSTIPATION; Start at 11:30 Sodium Biphosphate/ Sodium Phosphate (Fleet Enema) 133 ml DAILY PRN [place] CONSTIPATION; Start 02/15/17 at 11:30 Heparin Sodium (Porcine) (Heparin (5000 Units/0.5 ml)) 5,000 unit Q12 SC Last administered on 02/21/17 09:03; Admin Dose 5,000 UNIT; Start 02/15/17 at 21:00 Hydralazine HCl (Apresoline) 10 mg Q6H PRN IV ELEVATED BLOOD PRESSURE; Start at 11:30 Nitroglycerin (Nitroglycerin (Sl Tab) 0.4 Mg) 1 tab Q5M PRN SL ANGINA; Start at 11:30 Carvedilol (Coreg) 3.125 mg BID PO Last administered on 02/21/17 08:43; Admin Dose 3.125 MG; Start 02/15/17 at 21:00 Folic Acid (Folic Acid) 1 mg DAILY PO Last administered on 02/21/17 08:42; Admin Dose 1 MG; Start 02/16/17 at 09:00 Insulin Glargine (Lantus) 20 unit QHS SC Last administered on 02/20/17 21:00; Admin Dose 20 UNIT; Start 02/15/17 at 21:00 Losartan Potassium (Cozaar) 50 mg DAILY PO Last administered on 02/17/17 09:17 ; Admin Dose 50 MG; Start 02/15/17 at 13:00; Status Future Hold Atorvastatin Calcium (Lipitor) 20 mg DAILY@21 PO Last administered on 02/20/17 20:47; Admin Dose 20 MG; Start 02/15/17 at 21:00 Glucose (Glutose) 15 gm Q15M PRN PO DECREASED GLUCOSE; Start 02/15/17 at 12:00 Glucose (Glutose) 22.5 gm Q15M PRN PO DECREASED GLUCOSE; Start 02/15/17 at 12: 00 Dextrose (D50w Syringe) 25 ml Q15M PRN IV DECREASED GLUCOSE; Start 02/15/17 at 12:00 Dextrose (D50w Syringe) 50 ml Q15M PRN IV DECREASED GLUCOSE; Start 02/15/17 at 12:00 Glucagon (Glucagen) 1 mg Q15M PRN IM DECREASED GLUCOSE; Start 02/15/17 at 12:00 Glucose (Glutose) 15 gm Q15M PRN BUCCAL DECREASED GLUCOSE; Start 02/15/17 at 12 :00 Diagnostic Test (Pha) (Accu-Chek) 1 ea 02 XX Last administered on 02/19/17 02: 17; Admin Dose 1 EA; Start 02/16/17 at 02:00 Famotidine (Pepcid) 20 mg DAILY PO Last administered on 02/21/17 08:42; Admin Dose 20 MG; Start 02/15/17 at 21:00 Mupirocin (Bactroban) 1 applic BID TOP Last administered on 02/21/17 10:44; Admin Dose 1 APPLIC; Start 02/17/17 at 10:00 Aspirin (Halfprin) 81 mg DAILY PO Last administered on 02/21/17 08:42; Admin Dose 81 MG; Start 02/18/17 at 09:00 Acetaminophen (Tylenol Tab) 650 mg Q4H PRN PO NON-CARDIAC PAIN LEVEL 1-3; Start 02/17/17 at 12:30 Oxycodone/ Acetaminophen (Percocet (5/ 325)) 1 tab Q4H PRN PO REPORTED NON- CARDIAC PAIN 4-7; Start 02/17/17 at 12:30 Ticagrelor (Brilinta) 90 mg BID PO Last administered on 02/21/17 09:04; Admin Dose 90 MG; Start 02/19/17 at 21:00 Furosemide (Lasix) 40 mg DAILY@06 PO Last administered on 02/21/17 05:50; Admin Dose 40 MG; Start 02/20/17 at 06:00 Latanoprost (Xalatan) 1 drop HS BOTH EYES Last administered on 02/20/17 21:00; Admin Dose 1 DROP; Start 02/20/17 at 21:00 SANTOSH GENTILE MD Feb 21, 2017 17:29
[2017-02-21] MEDS: ATORVASTATIN 20 MG TAB PO SCH (20:49)
[2017-02-21] MEDS: LATANOPROST 0.005% 2.5 ML OPH BOTH EYES SCH (21:00)
[2017-02-21] MEDS: INSULIN GLARGINE [LANtus] 3 ML PEN SC SCH (21:01)
[2017-02-22] VITALS (16 sets, daily range): BP systolic 116–142; BP diastolic 62–79; PULSE 28–85; RESP 18–83
[2017-02-22] MEDS: ACCU-CHEK XX SCH (00:08)
[2017-02-22] MEDS: LEVOTHYROXINE 88 MCG TAB PO SCH (06:34)
[2017-02-22] MEDS: FUROSEMIDE 40 MG TAB PO SCH (06:35)
[2017-02-22] MEDS: INSULIN ASPART [NOVOLOG] 3 ML PEN SC SCH ×4 (07:55→21:31)
[2017-02-22] MEDS: FAMOTIDINE 20 MG TAB PO SCH (08:11)
[2017-02-22] MEDS: ASPIRIN (EC) 81 MG TAB PO SCH (08:12)
[2017-02-22] MEDS: FOLIC ACID 1 MG TAB PO SCH (08:13)
[2017-02-22] MEDS: MUPIROCIN 2% 22 GM OINT TOP SCH ×2 (08:14→21:32)
[2017-02-22] MEDS: TICAGRELOR 90 MG TABLET PO SCH ×2 (08:22→21:31)
[2017-02-22] MEDS: HEPARIN 5,000 UNIT/0.5 ML VIAL SC SCH ×2 (08:22→21:31)
[2017-02-22 09:26] LABS: BASOPHILS % 0.2 % (0.0-2.0); EOSINOPHILS # 0.1 10^3/ul (0.0-0.5); EOSINOPHILS % 1.4 % (0.0-7.0); HEMATOCRIT 30.4 % (42.0-52.0); LYMPHOCYTES # 1.6 10^3/ul (0.8-2.9); LYMPHOCYTES % 32.6 % (15.0-51.0); MEAN CORPUSCULAR HEMOGLOBIN 26.2 pg (29.0-33.0); MEAN CORPUSCULAR HGB CONC 32.9 g/dl (32.0-37.0); MEAN CORPUSCULAR VOLUME 79.6 fl (82.0-101.0); MEAN PLATELET VOLUME 11.1 fl (7.4-10.4); MONOCYTE # 0.4 10^3/ul (0.3-0.9); MONOCYTES % 8.6 % (0.0-11.0); NEUTROPHILS % 56.4 % (39.0-77.0); PLATELET COUNT 231 10^3/UL (140-415); RED BLOOD COUNT 3.82 10^6/ul (4.70-6.10); RED CELL DISTRIBUTION WIDTH 17.2 % (11.5-14.5); WHITE BLOOD COUNT 4.9 10^3/ul (4.8-10.8)
[2017-02-22 09:47] LABS: CALCIUM 9.5 mg/dl (8.4-10.2); CREATININE 1.65 mg/dl (0.61-1.24); POTASSIUM 3.4 mmol/L (3.5-5.1)
--- NOTE | 2017-02-22 11:14 | PN ---
DATE: 02/22/2017 SUBJECTIVE DATA: Patient is stable. No events overnight. No fevers, chills, nausea, vomiting. OBJECTIVE DATA: VITAL SIGNS: Blood pressure 130/75, respirations 19, pulse 77, temperature 98.1. HEENT: Head is normocephalic. NECK: Supple. HEART: Regular rate. LUNGS: Diminished breath sounds at the base. ABDOMEN: Soft, nontender to palpation. No rebound or guarding. EXTREMITIES: Negative for clubbing, cyanosis. No edema. DERMATOLOGIC: Clean. No rashes. MUSCULOSKELETAL: No joint effusion. NEUROLOGIC: No change in exam. MEDICATIONS: Reviewed. LABORATORY AND DIAGNOSTIC DATA: From 02/21/2017 showed sodium 143, potassium 3.9, BUN 28, creatinine 1.54. CBC was reviewed. ASSESSMENT AND PLAN: 1. Nonoliguric acute kidney injury on top of chronic kidney disease with previous baseline creatinine 1.4 mg/dL. Etiology of acute kidney injury secondary to hemodynamics. The patient is status post cardiac catheterization. No evidence of contrast associated nephropathy. At this point, continue current treatment plan. Supportive care. Renally dose all meds. 2. Hyponatremia, resolved. 3. Anemia. Monitor hemoglobin and hematocrit levels. 4. Mineral bone disorder. Monitor calcium and phosphorus levels. 5. Coronary artery disease status post percutaneous coronary intervention. Continue current medical management. 6. Acute respiratory failure secondary to congestive heart failure. Continue current medical management. Follow up with pulmonary. 7. Aortic stenosis status post valve replacement. 8. Diabetes. Continue Accu-Cheks and sliding scale. 9. Hypothyroidism. Continue Synthroid. Dictated By: Jean Carlos Fischer DO /[email or web address]/[email or web address] /Document#: [id number]
--- NOTE | 2017-02-22 15:24 | CONS ---
Date/Time of Note Date/Time of Note DATE: 02/22/17 TIME: 15:23 Consult Date/Type/Reason Admit Date/Time Feb 15, 2017 at 10:26 Type of Consultation: Pulmonary Ordering Provider: GEORGINA HUTCHISON Subjective Patient remains comfortable this morning no new events Objective Vital Signs Date Time Temp Pulse Resp B/P Pulse Ox O2 Delivery O2 Flow Rate FiO2 02/22/17 12:02 97.7 62 18 132/66 98 02/21/17 06:09 2.0 02/20/17 17:00 Room Air Intake and Output 02/21/17 02/21/17 02/22/17 15:00 23:00 07:00 Intake Total 840 ml 60 ml Balance 840 ml 60 ml Exam PHYSICAL EXAMINATION GENERAL APPEARANCE: Well-nourished well-developed gentleman comfortable at rest comfortable at rest. No acute distress. VITAL SIGNS: NECK: Supple. No JVD, lymphadenopathy. CARDIAC: S1, S2. No added sounds or murmurs. CHEST: Diminished air entry bilaterally. ABDOMEN: Soft, nontender. No guarding or rebound. EXTREMITIES: No cyanosis, clubbing or edema. NEUROLOGIC: Grossly intact. There are no focal deficits. Results/Medications Result Diagram: 02/22/17 0841 02/22/17 0841 Results 24 hrs Laboratory Tests Test 02/21/17 18:20 02/21/17 20:52 02/22/17 08:10 02/22/17 08:41 Bedside Glucose 165 174 91 White Blood Count 4.9 Red Blood Count 3.82 L Hemoglobin 10.0 L Hematocrit 30.4 L Mean Corpuscular Volume 79.6 L Mean Corpuscular Hemoglobin 26.2 L Mean Corpuscular Hemoglobin Concent 32.9 Red Cell Distribution Width 17.2 H Platelet Count 231 Mean Platelet Volume 11.1 H Neutrophils % 56.4 Lymphocytes % 32.6 Monocytes % 8.6 Eosinophils % 1.4 Basophils % 0.2 Nucleated Red Blood Cells % 0.0 Neutrophils # (Manual) 2.7 Lymphocytes # 1.6 Monocytes # 0.4 Eosinophils # 0.1 Basophils # 0.0 Nucleated Red Blood Cells # 0.0 Sodium Level 141 Potassium Level 3.4 L Chloride Level 104 Carbon Dioxide Level 26 Anion Gap 14 Blood Urea Nitrogen 34 H Creatinine 1.65 H Glucose Level 79 Calcium Level 9.5 Test 02/22/17 12:04 Bedside Glucose 164 Medications Current Medications Ondansetron HCl (Zofran Inj) 4 mg Q6H PRN IV NAUSEA AND/OR VOMITING; Start at 11:30 Acetaminophen (Tylenol Tab) 650 mg Q6H PRN PO PAIN LEVEL 1-3 OR FEVER; Start at 11:30 Acetaminophen/ Hydrocodone Bitart ([place] (5/325)) 1 tab Q6H PRN PO MODERATE PAIN LEVEL 4-6; Start 02/15/17 at 11:30 Morphine Sulfate (morphine) 2 mg Q4H PRN IV SEVERE PAIN LEVEL 7-10; Start 02/15 at 11:30 Docusate Sodium (Colace) 100 mg Q12H PRN PO CONSTIPATION; Start 02/15/17 at 11: 30 Magnesium Hydroxide (Milk Of Mag) 30 ml DAILY PRN PO CONSTIPATION; Start at 11:30 Sodium Biphosphate/ Sodium Phosphate (Fleet Enema) 133 ml DAILY PRN [place] CONSTIPATION; Start 02/15/17 at 11:30 Heparin Sodium (Porcine) (Heparin (5000 Units/0.5 ml)) 5,000 unit Q12 SC Last administered on 02/22/17 08:22; Admin Dose 5,000 UNIT; Start 02/15/17 at 21:00 Nitroglycerin (Nitroglycerin (Sl Tab) 0.4 Mg) 1 tab Q5M PRN SL ANGINA; Start at 11:30 Carvedilol (Coreg) 3.125 mg BID PO Last administered on 02/22/17 08:13; Admin Dose 3.125 MG; Start 02/15/17 at 21:00 Folic Acid (Folic Acid) 1 mg DAILY PO Last administered on 02/22/17 08:13; Admin Dose 1 MG; Start 02/16/17 at 09:00 Insulin Glargine (Lantus) 20 unit QHS SC Last administered on 02/21/17 21:01; Admin Dose 20 UNIT; Start 02/15/17 at 21:00 Losartan Potassium (Cozaar) 50 mg DAILY PO Last administered on 02/17/17 09:17 ; Admin Dose 50 MG; Start 02/15/17 at 13:00; Status Future Hold Atorvastatin Calcium (Lipitor) 20 mg DAILY@21 PO Last administered on 02/21/17 20:49; Admin Dose 20 MG; Start 02/15/17 at 21:00 Glucose (Glutose) 15 gm Q15M PRN PO DECREASED GLUCOSE; Start 02/15/17 at 12:00 Glucose (Glutose) 22.5 gm Q15M PRN PO DECREASED GLUCOSE; Start 02/15/17 at 12: 00 Dextrose (D50w Syringe) 25 ml Q15M PRN IV DECREASED GLUCOSE; Start 02/15/17 at 12:00 Dextrose (D50w Syringe) 50 ml Q15M PRN IV DECREASED GLUCOSE; Start 02/15/17 at 12:00 Glucagon (Glucagen) 1 mg Q15M PRN IM DECREASED GLUCOSE; Start 02/15/17 at 12:00 Glucose (Glutose) 15 gm Q15M PRN BUCCAL DECREASED GLUCOSE; Start 02/15/17 at 12 :00 Diagnostic Test (Pha) (Accu-Chek) 1 ea 02 XX Last administered on 02/19/17 02: 17; Admin Dose 1 EA; Start 02/16/17 at 02:00 Famotidine (Pepcid) 20 mg DAILY PO Last administered on 02/22/17 08:11; Admin Dose 20 MG; Start 02/15/17 at 21:00 Mupirocin (Bactroban) 1 applic BID TOP Last administered on 02/22/17 08:14; Admin Dose 1 APPLIC; Start 02/17/17 at 10:00 Aspirin (Halfprin) 81 mg DAILY PO Last administered on 02/22/17 08:12; Admin Dose 81 MG; Start 02/18/17 at 09:00 Acetaminophen (Tylenol Tab) 650 mg Q4H PRN PO NON-CARDIAC PAIN LEVEL 1-3; Start 02/17/17 at 12:30 Oxycodone/ Acetaminophen (Percocet (5/ 325)) 1 tab Q4H PRN PO REPORTED NON- CARDIAC PAIN 4-7; Start 02/17/17 at 12:30 Ticagrelor (Brilinta) 90 mg BID PO Last administered on 02/22/17 08:22; Admin Dose 90 MG; Start 02/19/17 at 21:00 Furosemide (Lasix) 40 mg DAILY@06 PO Last administered on 02/22/17 06:35; Admin Dose 40 MG; Start 02/20/17 at 06:00 Latanoprost (Xalatan) 1 drop HS BOTH EYES Last administered on 02/20/17t 21:00; Admin Dose 1 DROP; Start 02/20/17 at 21:00 Assessment/Plan Chief Complaint/Hosp Course IMPRESSION: 1. Hypoxemic respiratory failure likely secondary to acute on chronic left ventricular heart failure.Clinically improved with diuretics. 2. Possible community-acquired pneumonia. 3. History of aortic valve replacement status post transcatheter aortic valve replacement. Status post PCI with stent placement. Concern for possible second-degree heart block. PLAN: 1. Continue cardiac recommendations, review medications 2. Continue supplemental O2. 3. Ambulate as tolerated 4. Encourage out of bed. 5. DVT and GI prophylaxis. DC planning okay from pulmonary standpoint Problems: YOBANY PALUMBO MD, [facility] Feb 22, 2017 15:24
--- NOTE | 2017-02-22 17:41 | PN ---
Date/Time of Note Date/Time of Note DATE: 02/22/17 TIME: 17:38 Assessment/Plan VTE Prophylaxis VTE Prophylaxis Intervention: SCD's Lines/Catheters IV Catheter Type (from Nrs): [place] Urinary Cath still in place: No Assessment/Plan Assessment/Plan 81 yo M with pmhx CAD sp PCI, sp AVR admitted for SOB found to have acute on chronic systolic HF and NSETMI #NSTEMI: sp PCI from cardiology, plavix changed to Brilinta -stop bb given low HR #acute on chronic CHF: cont lasix #KEN on CKD: renal on cs, acei on hold and BP ok #DM2: cont home lantus #hypothyroid: cont home synthroid #HTN, HL, h/o CAD: cont home meds except acei as noted, bb stopped, and change from plavix to Brilinta talk to cards in AM prior to discharge Subjective 24 Hr Interval Summary Free Text/Dictation HR down to 30s this AM Exam/Review of Systems Vital Signs Vitals Vital Signs Date Time Temp Pulse Resp B/P Pulse Ox O2 Delivery O2 Flow Rate FiO2 02/22/17 16:11 73 02/22/17 15:38 97.6 18 142/68 99 02/21/17 06:09 2.0 02/20/17 17:00 Room Air Intake and Output 02/21/17 02/21/17 02/22/17 15:00 23:00 07:00 Intake Total 840 ml 60 ml Balance 840 ml 60 ml Exam nad no mrg lungs clear abd soft no rashes Results Result Diagram: 02/22/17 0841 02/22/17 0841 Results 24 hrs Laboratory Tests Test 02/21/17 18:20 02/21/17 20:52 02/22/17 08:10 02/22/17 08:41 Bedside Glucose 165 174 91 White Blood Count 4.9 Red Blood Count 3.82 L Hemoglobin 10.0 L Hematocrit 30.4 L Mean Corpuscular Volume 79.6 L Mean Corpuscular Hemoglobin 26.2 L Mean Corpuscular Hemoglobin Concent 32.9 Red Cell Distribution Width 17.2 H Platelet Count 231 Mean Platelet Volume 11.1 H Neutrophils % 56.4 Lymphocytes % 32.6 Monocytes % 8.6 Eosinophils % 1.4 Basophils % 0.2 Nucleated Red Blood Cells % 0.0 Neutrophils # (Manual) 2.7 Lymphocytes # 1.6 Monocytes # 0.4 Eosinophils # 0.1 Basophils # 0.0 Nucleated Red Blood Cells # 0.0 Sodium Level 141 Potassium Level 3.4 L Chloride Level 104 Carbon Dioxide Level 26 Anion Gap 14 Blood Urea Nitrogen 34 H Creatinine 1.65 H Glucose Level 79 Calcium Level 9.5 Test 02/22/17 12:04 02/22/17 17:29 Bedside Glucose 164 186 Medications Medications Current Medications Ondansetron HCl (Zofran Inj) 4 mg Q6H PRN IV NAUSEA AND/OR VOMITING; Start at 11:30 Acetaminophen (Tylenol Tab) 650 mg Q6H PRN PO PAIN LEVEL 1-3 OR FEVER; Start at 11:30 Acetaminophen/ Hydrocodone Bitart ([place] (5/325)) 1 tab Q6H PRN PO MODERATE PAIN LEVEL 4-6; Start 02/15/17 at 11:30 Morphine Sulfate (morphine) 2 mg Q4H PRN IV SEVERE PAIN LEVEL 7-10; Start 02/15 at 11:30 Docusate Sodium (Colace) 100 mg Q12H PRN PO CONSTIPATION; Start 02/15/17 at 11: 30 Magnesium Hydroxide (Milk Of Mag) 30 ml DAILY PRN PO CONSTIPATION; Start at 11:30 Sodium Biphosphate/ Sodium Phosphate (Fleet Enema) 133 ml DAILY PRN [place] CONSTIPATION; Start 02/15/17 at 11:30 Heparin Sodium (Porcine) (Heparin (5000 Units/0.5 ml)) 5,000 unit Q12 SC Last administered on 02/22/17 08:22; Admin Dose 5,000 UNIT; Start 02/15/17 at 21:00 Nitroglycerin (Nitroglycerin (Sl Tab) 0.4 Mg) 1 tab Q5M PRN SL ANGINA; Start at 11:30 Carvedilol (Coreg) 3.125 mg BID PO Last administered on 02/22/17 08:13; Admin Dose 3.125 MG; Start 02/15/17 at 21:00 Folic Acid (Folic Acid) 1 mg DAILY PO Last administered on 02/22/17 08:13; Admin Dose 1 MG; Start 02/16/17 at 09:00 Insulin Glargine (Lantus) 20 unit QHS SC Last administered on 02/21/17 21:01; Admin Dose 20 UNIT; Start 02/15/17 at 21:00 Losartan Potassium (Cozaar) 50 mg DAILY PO Last administered on 02/17/17 09:17 ; Admin Dose 50 MG; Start 02/15/17 at 13:00; Status Future Hold Atorvastatin Calcium (Lipitor) 20 mg DAILY@21 PO Last administered on 02/21/17 20:49; Admin Dose 20 MG; Start 02/15/17 at 21:00 Glucose (Glutose) 15 gm Q15M PRN PO DECREASED GLUCOSE; Start 02/15/17 at 12:00 Glucose (Glutose) 22.5 gm Q15M PRN PO DECREASED GLUCOSE; Start 02/15/17 at 12: 00 Dextrose (D50w Syringe) 25 ml Q15M PRN IV DECREASED GLUCOSE; Start 02/15/17 at 12:00 Dextrose (D50w Syringe) 50 ml Q15M PRN IV DECREASED GLUCOSE; Start 02/15/17 at 12:00 Glucagon (Glucagen) 1 mg Q15M PRN IM DECREASED GLUCOSE; Start 02/15/17 at 12:00 Glucose (Glutose) 15 gm Q15M PRN BUCCAL DECREASED GLUCOSE; Start 02/15/17 at 12 :00 Diagnostic Test (Pha) (Accu-Chek) 1 ea 02 XX Last administered on 02/19/17 02: 17; Admin Dose 1 EA; Start 02/16/17 at 02:00 Famotidine (Pepcid) 20 mg DAILY PO Last administered on 02/22/17 08:11; Admin Dose 20 MG; Start 02/15/17 at 21:00 Mupirocin (Bactroban) 1 applic BID TOP Last administered on 02/22/17 08:14; Admin Dose 1 APPLIC; Start 02/17/17 at 10:00 Aspirin (Halfprin) 81 mg DAILY PO Last administered on 02/22/17 08:12; Admin Dose 81 MG; Start 02/18/17 at 09:00 Acetaminophen (Tylenol Tab) 650 mg Q4H PRN PO NON-CARDIAC PAIN LEVEL 1-3; Start 02/17/17 at 12:30 Oxycodone/ Acetaminophen (Percocet (5/ 325)) 1 tab Q4H PRN PO REPORTED NON- CARDIAC PAIN 4-7; Start 02/17/17 at 12:30 Ticagrelor (Brilinta) 90 mg BID PO Last administered on 02/22/17 08:22; Admin Dose 90 MG; Start 02/19/17 at 21:00 Furosemide (Lasix) 40 mg DAILY@06 PO Last administered on 02/22/17 06:35; Admin Dose 40 MG; Start 02/20/17 at 06:00 Latanoprost (Xalatan) 1 drop HS BOTH EYES Last administered on 02/20/17 21:00; Admin Dose 1 DROP; Start 02/20/17 at 21:00 SANTOSH GENTILE MD Feb 22, 2017 17:41
[2017-02-22] MEDS: LATANOPROST 0.005% 2.5 ML OPH BOTH EYES SCH (21:23)
[2017-02-22] MEDS: ATORVASTATIN 20 MG TAB PO SCH (21:23)
[2017-02-22] MEDS: INSULIN GLARGINE [LANtus] 3 ML PEN SC SCH (21:30)
[2017-02-23] VITALS (13 sets, daily range): BP systolic 118–146; BP diastolic 68–70; PULSE 73–123; RESP 18–19
--- NOTE | 2017-02-23 00:36 | PN ---
Date/Time of Note Date/Time of Note DATE: 02/23/17 TIME: 00:18 Assessment/Plan VTE Prophylaxis VTE Prophylaxis Intervention: heparin Lines/Catheters IV C[facility] Type (from [facility] Saline Lock Urinary Cath still in place: No Assessment/Plan Chief Complaint/Hosp Course The patient is an 80-year-old male with documented severe coronary artery disease and ischemic cardiomyopathy with moderate left ventricular systolic dysfunction. The patient was admitted with an NSTEMI caused by severe in stent restenosis of distal left main coronary artery. The patient had successful PCI by Dr. Flores. Additionally, was admitted with acute decompensated congestive heart failure. The patient has improved after the procedure. Patient developed transient bradycardia due to second degree Mobitz 1. Diagnosis: #1 Acute NSTEMI #2 Severe three-vessel coronary artery disease #3 Ischemic cardiomyopathy with severe LV systolic dysfunction #4 Aortic valve disease -status post TAVR. #5 Hypercholesterolemia #6 Congestive heart failure, partially compensated. Plan: #1 Continue post procedure care: Aspirin, Ticagreloor, Carvedilol, statin. #2 Keep 1 more day in ICU. Signed Salo Rowe MD Problems: Assessment/Plan Patient had a short episode of high grade AV block during the night, likely due to vagal tone. He is otherwise stable. TE Prophylaxis Intervention: heparin Assessment/Plan Chief Complaint/Hosp Course The patient is an 80-year-old male with documented severe coronary artery disease and ischemic cardiomyopathy with moderate left ventricular systolic dysfunction. The patient was admitted with an NSTEMI caused by severe in stent restenosis of distal left main coronary artery. The patient had successful PCI by Dr. Flores. Additionally, was admitted with acute decompensated congestive heart failure. The patient has improved after the procedure. Patient developed transient bradycardia due to second degree Mobitz 1. Diagnosis: #1 Acute NSTEMI #2 Severe three-vessel coronary artery disease #3 Ischemic cardiomyopathy with severe LV systolic dysfunction #4 Aortic valve disease -status post TAVR. #5 Hypercholesterolemia #6 Congestive heart failure, partially compensated. Plan: #1 Continue post procedure care: Aspirin, Ticagreloor, Carvedilol, statin. #2 Keep 1 more day in ICU. Signed Salo Rowe MD Problems: Subjective 24 Hr Interval Summary Respiratory: improved SALO ROWE MD Subjective 24 Hr Interval Summary Constitutional: improved Respiratory: shortness of breath (with exertion) Exam/Review of Systems Vital Signs Vitals Vital Signs Date Time Temp Pulse Resp B/P Pulse Ox O2 Delivery O2 Flow Rate FiO2 02/23/17 00:01 90 02/22/17 23:48 97.8 18 127/62 96 02/21/17 06:09 2.0 02/20/17 17:00 Room Air Intake and Output 02/22/17 02/22/17 02/23/17 15:00 23:00 07:00 Intake Total 980 ml Balance 980 ml Exam Constitutional: alert, oriented, well developed Psych: no complaints Head: atraumatic, normocephalic Eyes: EOMI Neck: supple Cardiovascular: S4, regular rate and rhythm Gastrointestinal: non-tender, soft Results Result Diagram: 02/22/17 0841 02/22/17 0841 Results 24 hrs Laboratory Tests Test 02/22/17 08:10 02/22/17 08:41 02/22/17 12:04 02/22/17 17:29 Bedside Glucose 91 164 186 White Blood Count 4.9 Red Blood Count 3.82 L Hemoglobin 10.0 L Hematocrit 30.4 L Mean Corpuscular Volume 79.6 L Mean Corpuscular Hemoglobin 26.2 L Mean Corpuscular Hemoglobin Concent 32.9 Red Cell Distribution Width 17.2 H Platelet Count 231 Mean Platelet Volume 11.1 H Neutrophils % 56.4 Lymphocytes % 32.6 Monocytes % 8.6 Eosinophils % 1.4 Basophils % 0.2 Nucleated Red Blood Cells % 0.0 Neutrophils # (Manual) 2.7 Lymphocytes # 1.6 Monocytes # 0.4 Eosinophils # 0.1 Basophils # 0.0 Nucleated Red Blood Cells # 0.0 Sodium Level 141 Potassium Level 3.4 L Chloride Level 104 Carbon Dioxide Level 26 Anion Gap 14 Blood Urea Nitrogen 34 H Creatinine 1.65 H Glucose Level 79 Calcium Level 9.5 Test 02/22/17 21:27 Bedside Glucose 299 H Medications Medications Current Medications Ondansetron HCl (Zofran Inj) 4 mg Q6H PRN IV NAUSEA AND/OR VOMITING; Start at 11:30 Acetaminophen (Tylenol Tab) 650 mg Q6H PRN PO PAIN LEVEL 1-3 OR FEVER; Start at 11:30 Acetaminophen/ Hydrocodone Bitart ([place] (5/325)) 1 tab Q6H PRN PO MODERATE PAIN LEVEL 4-6; Start 02/15/17 at 11:30 Morphine Sulfate (morphine) 2 mg Q4H PRN IV SEVERE PAIN LEVEL 7-10; Start 02/15 at 11:30 Docusate Sodium (Colace) 100 mg Q12H PRN PO CONSTIPATION; Start 02/15/17 at 11: 30 Magnesium Hydroxide (Milk Of Mag) 30 ml DAILY PRN PO CONSTIPATION; Start at 11:30 Sodium Biphosphate/ Sodium Phosphate (Fleet Enema) 133 ml DAILY PRN [place] CONSTIPATION; Start 02/15/17 at 11:30 Heparin Sodium (Porcine) (Heparin (5000 Units/0.5 ml)) 5,000 unit Q12 SC Last administered on 02/22/17 21:31; Admin Dose 5,000 UNIT; Start 02/15/17 at 21:00 Nitroglycerin (Nitroglycerin (Sl Tab) 0.4 Mg) 1 tab Q5M PRN SL ANGINA; Start at 11:30 Folic Acid (Folic Acid) 1 mg DAILY PO Last administered on 02/22/17 08:13; Admin Dose 1 MG; Start 02/16/17 at 09:00 Insulin Glargine (Lantus) 20 unit QHS SC Last administered on 02/22/17 21:30; Admin Dose 20 UNIT; Start 02/15/17 at 21:00 Losartan Potassium (Cozaar) 50 mg DAILY PO Last administered on 02/17/17 09:17 ; Admin Dose 50 MG; Start 02/15/17 at 13:00; Status Future Hold Atorvastatin Calcium (Lipitor) 20 mg DAILY@21 PO Last administered on 02/22/17 21:23; Admin Dose 20 MG; Start 02/15/17 at 21:00 Glucose (Glutose) 15 gm Q15M PRN PO DECREASED GLUCOSE; Start 02/15/17 at 12:00 Glucose (Glutose) 22.5 gm Q15M PRN PO DECREASED GLUCOSE; Start 02/15/17 at 12: 00 Dextrose (D50w Syringe) 25 ml Q15M PRN IV DECREASED GLUCOSE; Start 02/15/17 at 12:00 Dextrose (D50w Syringe) 50 ml Q15M PRN IV DECREASED GLUCOSE; Start 02/15/17 at 12:00 Glucagon (Glucagen) 1 mg Q15M PRN IM DECREASED GLUCOSE; Start 02/15/17 at 12:00 Glucose (Glutose) 15 gm Q15M PRN BUCCAL DECREASED GLUCOSE; Start 02/15/17 at 12 :00 Diagnostic Test (Pha) (Accu-Chek) 1 ea 02 XX Last administered on 02/19/17 02: 17; Admin Dose 1 EA; Start 02/16/17 at 02:00 Mupirocin (Bactroban) 1 applic BID TOP Last administered on 02/22/17 21:32; Admin Dose 1 APPLIC; Start 02/17/17 at 10:00 Aspirin (Halfprin) 81 mg DAILY PO Last administered on 02/22/17 08:12; Admin Dose 81 MG; Start 02/18/17 at 09:00 Acetaminophen (Tylenol Tab) 650 mg Q4H PRN PO NON-CARDIAC PAIN LEVEL 1-3; Start 02/17/17 at 12:30 Oxycodone/ Acetaminophen (Percocet (5/ 325)) 1 tab Q4H PRN PO REPORTED NON- CARDIAC PAIN 4-7; Start 02/17/17 at 12:30 Ticagrelor (Brilinta) 90 mg BID PO Last administered on 02/22/17 21:31; Admin Dose 90 MG; Start 02/19/17 at 21:00 Furosemide (Lasix) 40 mg DAILY@06 PO Last administered on 02/22/17 06:35; Admin Dose 40 MG; Start 02/20/17 at 06:00 Latanoprost (Xalatan) 1 drop HS BOTH EYES Last administered on 02/22/17 21:23; Admin Dose 1 DROP; Start 02/20/17 at 21:00 SALO ROWE MD Feb 23, 2017 00:31
[2017-02-23] MEDS: ACCU-CHEK XX SCH (02:15)
[2017-02-23] MEDS: LEVOTHYROXINE 88 MCG TAB PO SCH (06:30)
[2017-02-23] MEDS: FUROSEMIDE 40 MG TAB PO SCH (06:31)
[2017-02-23] MEDS: INSULIN ASPART [NOVOLOG] 3 ML PEN SC SCH ×4 (07:55→20:52)
[2017-02-23] MEDS: ASPIRIN (EC) 81 MG TAB PO SCH (08:03)
[2017-02-23] MEDS: MUPIROCIN 2% 22 GM OINT TOP SCH ×2 (08:04→21:36)
[2017-02-23] MEDS: FOLIC ACID 1 MG TAB PO SCH (08:04)
[2017-02-23] MEDS: TICAGRELOR 90 MG TABLET PO SCH ×2 (08:13→20:52)
[2017-02-23] MEDS: HEPARIN 5,000 UNIT/0.5 ML VIAL SC SCH ×2 (08:14→20:52)
--- NOTE | 2017-02-23 10:19 | PN ---
DATE: 02/23/2017 SUBJECTIVE DATA: The patient is stable. No acute events overnight. No fevers, chills, nausea, vomiting. OBJECTIVE DATA: VITAL SIGNS: Blood pressure 136/68, pulse 76, respiration, temperature 98.3. HEENT: Head is normocephalic. NECK: Supple. HEART: Regular rate. LUNGS: Diminished breath sounds at the base. ABDOMEN: Soft. Nontender to palpation. No rebound or guarding. EXTREMITIES: Negative for clubbing, cyanosis. No edema. DERMATOLOGIC: No rashes. MUSCULOSKELETAL: No joint effusion. NEUROLOGIC: No change in exam. MEDICATIONS: Reviewed. LABORATORY DATA: No new labs. ASSESSMENT AND PLAN: 1. Nonoliguric acute kidney injury on top of chronic kidney disease, with previous baseline creatinine of 1.4 mg/dL. Etiology of acute kidney injury secondary to hemodynamics. The patient is status post-cardiac catheterization. No evidence of contrast associated nephropathy. At this point, continue current treatment. Supportive care. Renally dose all meds. 2. Hyponatremia, resolved. 3. Anemia. Monitor hemoglobin and hematocrit levels. 4. Mineral bone disorder. Continue to monitor calcium and phosphate levels. 5. Chronic disease. Continue current medical management. 6. Acute respiratory failure, secondary to congestive heart failure, improving. Continue current treatment plan. 7. Aortic stenosis. 8. Diabetes. Continue current medical management. 9. Hypothyroidism. Continue Synthroid. Dictated By: Jean Carlos Fischer DO /sha/ayan /Document#: [id number]
--- NOTE | 2017-02-23 14:07 | CONS ---
Date/Time of Note Date/Time of Note DATE: 02/23/17 TIME: 14:04 Assessment/Plan Assessment/Plan Chief Complaint/Hosp Course IMP: 1.CHF-systolic acute on chronic. 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 LBBB 7.Nstemi-mild positive troponin. Now post-op s/p LHC with PTCA/stent to distal LMN due to 95% stenosis with 3.5 CHAMP 8. Heart block-episodes of 2:1 block and HR to high 20's-improved with d/c on BB REcc: -Tele monitoring -Hold BB and follow HR/rhythm closely -Continue PO lasix diuresis -strict I/O's -continue statin -Continue asa/brilinta -Start hydralazine afterload reduction Problems: Consultation Date/Type/Reason Admit Date/Time Feb 15, 2017 at 10:26 Initial Consult Date 02/15/17 Type of Consultation: cardiology Reason for Consultation Nstemi/CHF Referring Provider: GEORGINA HUTCHISON Exam/Review of Systems Vital Signs Vitals Vital Signs Date Time Temp Pulse Resp B/P Pulse Ox O2 Delivery O2 Flow Rate FiO2 02/23/17 12:00 76 02/23/17 11:15 98.1 18 146/70 99 02/21/17 06:09 2.0 02/20/17 17:00 Room Air Intake and Output 02/22/17 02/22/17 02/23/17 15:00 23:00 07:00 Intake Total 980 ml 60 ml Balance 980 ml 60 ml Exam Review of Systems: CONSTITUTIONAL: No fevers, chills. PULMONARY: No sob CARDIOVASCULAR: No chest pain/palpitations GASTROINTESTINAL: No nausea/vomiting. GENITOURINARY: No hematuria/dysuria. MUSCULOSKELETAL: No myagias/arthalgias. PSYCHIATRIC: The patient denies depression. NEUROLOGIC: No weakness Constitutional: alert, oriented Psych: no complaints Head: normocephalic ENMT: mucosa pink and moist Neck: jvd (9 cm water), supple Respiratory: clear to auscultation Cardiovascular: regular rate and rhythm Gastrointestinal: non-tender, soft Musculoskeletal: muscle tone (normal) Extremities: edema (none) Neurological: other (No focal deficits) Results Result Diagram: 02/22/17 0841 02/22/17 0841 Results 24 hrs Laboratory Tests Test 02/22/17 17:29 02/22/17 21:27 02/23/17 02:17 02/23/17 08:02 Bedside Glucose 186 299 H 161 123 Test 02/23/17 12:09 Bedside Glucose 129 Medications Medications Current Medications Ondansetron HCl (Zofran Inj) 4 mg Q6H PRN IV NAUSEA AND/OR VOMITING; Start at 11:30 Acetaminophen (Tylenol Tab) 650 mg Q6H PRN PO PAIN LEVEL 1-3 OR FEVER; Start at 11:30 Acetaminophen/ Hydrocodone Bitart ([place] (5/325)) 1 tab Q6H PRN PO MODERATE PAIN LEVEL 4-6; Start 02/15/17 at 11:30 Morphine Sulfate (morphine) 2 mg Q4H PRN IV SEVERE PAIN LEVEL 7-10; Start 02/15 at 11:30 Docusate Sodium (Colace) 100 mg Q12H PRN PO CONSTIPATION; Start 02/15/17 at 11: 30 Magnesium Hydroxide (Milk Of Mag) 30 ml DAILY PRN PO CONSTIPATION; Start at 11:30 Sodium Biphosphate/ Sodium Phosphate (Fleet Enema) 133 ml DAILY PRN [place] CONSTIPATION; Start 02/15/17 at 11:30 Heparin Sodium (Porcine) (Heparin (5000 Units/0.5 ml)) 5,000 unit Q12 SC Last administered on 02/23/17 08:14; Admin Dose 5,000 UNIT; Start 02/15/17 at 21:00 Nitroglycerin (Nitroglycerin (Sl Tab) 0.4 Mg) 1 tab Q5M PRN SL ANGINA; Start at 11:30 Folic Acid (Folic Acid) 1 mg DAILY PO Last administered on 02/23/17 08:04; Admin Dose 1 MG; Start 02/16/17 at 09:00 Insulin Glargine (Lantus) 20 unit QHS SC Last administered on 02/22/17 21:30; Admin Dose 20 UNIT; Start 02/15/17 at 21:00 Losartan Potassium (Cozaar) 50 mg DAILY PO Last administered on 02/17/17 09:17 ; Admin Dose 50 MG; Start 02/15/17 at 13:00; Status Future Hold Atorvastatin Calcium (Lipitor) 20 mg DAILY@21 PO Last administered on 02/22/17 21:23; Admin Dose 20 MG; Start 02/15/17 at 21:00 Glucose (Glutose) 15 gm Q15M PRN PO DECREASED GLUCOSE; Start 02/15/17 at 12:00 Glucose (Glutose) 22.5 gm Q15M PRN PO DECREASED GLUCOSE; Start 02/15/17 at 12: 00 Dextrose (D50w Syringe) 25 ml Q15M PRN IV DECREASED GLUCOSE; Start 02/15/17 at 12:00 Dextrose (D50w Syringe) 50 ml Q15M PRN IV DECREASED GLUCOSE; Start 02/15/17 at 12:00 Glucagon (Glucagen) 1 mg Q15M PRN IM DECREASED GLUCOSE; Start 02/15/17 at 12:00 Glucose (Glutose) 15 gm Q15M PRN BUCCAL DECREASED GLUCOSE; Start 02/15/17 at 12 :00 Diagnostic Test (Pha) (Accu-Chek) 1 ea 02 XX Last administered on 02/23/17 02: 15; Admin Dose 1 EA; Start 02/16/17 at 02:00 Mupirocin (Bactroban) 1 applic BID TOP Last administered on 02/23/17 08:04; Admin Dose 1 APPLIC; Start 02/17/17 at 10:00 Aspirin (Halfprin) 81 mg DAILY PO Last administered on 02/23/17 08:03; Admin Dose 81 MG; Start 02/18/17 at 09:00 Acetaminophen (Tylenol Tab) 650 mg Q4H PRN PO NON-CARDIAC PAIN LEVEL 1-3; Start 02/17/17 at 12:30 Oxycodone/ Acetaminophen (Percocet (5/ 325)) 1 tab Q4H PRN PO REPORTED NON- CARDIAC PAIN 4-7; Start 02/17/17 at 12:30 Ticagrelor (Brilinta) 90 mg BID PO Last administered on 02/23/17 08:13; Admin Dose 90 MG; Start 02/19/17 at 21:00 Furosemide (Lasix) 40 mg DAILY@06 PO Last administered on 02/23/17 06:31; Admin Dose 40 MG; Start 02/20/17 at 06:00 Latanoprost (Xalatan) 1 drop HS BOTH EYES Last administered on 02/22/17 21:23; Admin Dose 1 DROP; Start 02/20/17 at 21:00 ELEANOR ROLDAN Feb 23, 2017 14:07
--- NOTE | 2017-02-23 14:57 | CONS ---
Date/Time of Note Date/Time of Note DATE: 02/23/17 TIME: 14:55 Consult Date/Type/Reason Admit Date/Time Feb 15, 2017 at 10:26 Type of Consultation: Pulm Ordering Provider: GEORGINA HUTCHISON Subjective Comfortable, no new events. Objective Vital Signs Date Time Temp Pulse Resp B/P Pulse Ox O2 Delivery O2 Flow Rate FiO2 02/23/17 12:00 76 02/23/17 11:15 98.1 18 146/70 99 02/21/17 06:09 2.0 02/20/17 17:00 Room Air Intake and Output 02/22/17 02/22/17 02/23/17 15:00 23:00 07:00 Intake Total 980 ml 60 ml Balance 980 ml 60 ml Exam PHYSICAL EXAMINATION GENERAL APPEARANCE: Well-nourished well-developed gentleman comfortable at rest comfortable at rest. No acute distress. VITAL SIGNS: NECK: Supple. No JVD, lymphadenopathy. CARDIAC: S1, S2. No added sounds or murmurs. CHEST: Diminished air entry bilaterally. ABDOMEN: Soft, nontender. No guarding or rebound. EXTREMITIES: No cyanosis, clubbing or edema. NEUROLOGIC: Grossly intact. There are no focal deficits. Results/Medications Result Diagram: 02/22/17 0841 02/22/17 0841 Results 24 hrs Laboratory Tests Test 02/22/17 17:29 02/22/17 21:27 02/23/17 02:17 02/23/17 08:02 Bedside Glucose 186 299 H 161 123 Test 02/23/17 12:09 Bedside Glucose 129 Medications Current Medications Ondansetron HCl (Zofran Inj) 4 mg Q6H PRN IV NAUSEA AND/OR VOMITING; Start at 11:30 Acetaminophen (Tylenol Tab) 650 mg Q6H PRN PO PAIN LEVEL 1-3 OR FEVER; Start at 11:30 Acetaminophen/ Hydrocodone Bitart ([place] (5/325)) 1 tab Q6H PRN PO MODERATE PAIN LEVEL 4-6; Start 02/15/17 at 11:30 Morphine Sulfate (morphine) 2 mg Q4H PRN IV SEVERE PAIN LEVEL 7-10; Start 02/15 at 11:30 Docusate Sodium (Colace) 100 mg Q12H PRN PO CONSTIPATION; Start 02/15/17 at 11: 30 Magnesium Hydroxide (Milk Of Mag) 30 ml DAILY PRN PO CONSTIPATION; Start at 11:30 Sodium Biphosphate/ Sodium Phosphate (Fleet Enema) 133 ml DAILY PRN [place] CONSTIPATION; Start 02/15/17 at 11:30 Heparin Sodium (Porcine) (Heparin (5000 Units/0.5 ml)) 5,000 unit Q12 SC Last administered on 02/23/17 08:14; Admin Dose 5,000 UNIT; Start 02/15/17 at 21:00 Nitroglycerin (Nitroglycerin (Sl Tab) 0.4 Mg) 1 tab Q5M PRN SL ANGINA; Start at 11:30 Folic Acid (Folic Acid) 1 mg DAILY PO Last administered on 02/23/17 08:04; Admin Dose 1 MG; Start 02/16/17 at 09:00 Insulin Glargine (Lantus) 20 unit QHS SC Last administered on 02/22/17 21:30; Admin Dose 20 UNIT; Start 02/15/17 at 21:00 Losartan Potassium (Cozaar) 50 mg DAILY PO Last administered on 02/17/17 09:17 ; Admin Dose 50 MG; Start 02/15/17 at 13:00; Status Future Hold Atorvastatin Calcium (Lipitor) 20 mg DAILY@21 PO Last administered on 02/22/17 21:23; Admin Dose 20 MG; Start 02/15/17 at 21:00 Glucose (Glutose) 15 gm Q15M PRN PO DECREASED GLUCOSE; Start 02/15/17 at 12:00 Glucose (Glutose) 22.5 gm Q15M PRN PO DECREASED GLUCOSE; Start 02/15/17 at 12: 00 Dextrose (D50w Syringe) 25 ml Q15M PRN IV DECREASED GLUCOSE; Start 02/15/17 at 12:00 Dextrose (D50w Syringe) 50 ml Q15M PRN IV DECREASED GLUCOSE; Start 02/15/17 at 12:00 Glucagon (Glucagen) 1 mg Q15M PRN IM DECREASED GLUCOSE; Start 02/15/17 at 12:00 Glucose (Glutose) 15 gm Q15M PRN BUCCAL DECREASED GLUCOSE; Start 02/15/17 at 12 :00 Diagnostic Test (Pha) (Accu-Chek) 1 ea 02 XX Last administered on 02/23/17 02: 15; Admin Dose 1 EA; Start 02/16/17 at 02:00 Mupirocin (Bactroban) 1 applic BID TOP Last administered on 02/23/17 08:04; Admin Dose 1 APPLIC; Start 02/17/17 at 10:00 Aspirin (Halfprin) 81 mg DAILY PO Last administered on 02/23/17 08:03; Admin Dose 81 MG; Start 02/18/17 at 09:00 Acetaminophen (Tylenol Tab) 650 mg Q4H PRN PO NON-CARDIAC PAIN LEVEL 1-3; Start 02/17/17 at 12:30 Oxycodone/ Acetaminophen (Percocet (5/ 325)) 1 tab Q4H PRN PO REPORTED NON- CARDIAC PAIN 4-7; Start 02/17/17 at 12:30 Ticagrelor (Brilinta) 90 mg BID PO Last administered on 02/23/17 08:13; Admin Dose 90 MG; Start 02/19/17 at 21:00 Furosemide (Lasix) 40 mg DAILY@06 PO Last administered on 02/23/17 06:31; Admin Dose 40 MG; Start 02/20/17 at 06:00 Latanoprost (Xalatan) 1 drop HS BOTH EYES Last administered on 02/22/17 21:23; Admin Dose 1 DROP; Start 02/20/17 at 21:00 Hydralazine HCl (Apresoline) 25 mg Q8 PO ; Start 02/23/17 at 22:00 Assessment/Plan Chief Complaint/Hosp Course IMPRESSION: 1. Hypoxemic respiratory failure likely secondary to acute on chronic left ventricular heart failure.Clinically improved with diuretics. 2. Possible community-acquired pneumonia. 3. History of aortic valve replacement status post transcatheter aortic valve replacement. Status post PCI with stent placement. 2.1 heart block PLAN: 1. Continue cardiac recommendations, review medications 2. Continue supplemental O2. 3. Ambulate as tolerated 4. Encourage out of bed. 5. DVT and GI prophylaxis. cardiac recs. Problems: YOBANY PALUMBO MD, [facility] Feb 23, 2017 14:56
--- NOTE | 2017-02-23 17:55 | PN ---
Date/Time of Note Date/Time of Note DATE: 02/23/17 TIME: 17:54 Assessment/Plan VTE Prophylaxis VTE Prophylaxis Intervention: SCD's Lines/Catheters IV Catheter Type (from Nrsg): Saline Lock Urinary Cath still in place: No Assessment/Plan Assessment/Plan 81 yo M with pmhx CAD sp PCI, sp AVR admitted for SOB found to have acute on chronic systolic HF and NSETMI #NSTEMI: sp PCI from cardiology, plavix changed to Brilinta -stopped bb given low HR (last dose 9.5 at 9am) #acute on chronic CHF: cont lasix #KEN on CKD: renal on cs, acei on hold and BP ok #DM2: cont home lantus #hypothyroid: cont home synthroid #HTN, HL, h/o CAD: cont home meds except acei as noted, bb stopped, and change from plavix to Brilinta dc in AM if HR consistently >50 Subjective 24 Hr Interval Summary Free Text/Dictation Still with low HR overnight Exam/Review of Systems Vital Signs Vitals Vital Signs Date Time Temp Pulse Resp B/P Pulse Ox O2 Delivery O2 Flow Rate FiO2 02/23/17 16:08 21 02/23/17 16:00 81 02/23/17 15:54 97.8 18 131/68 99 02/21/17 06:09 2.0 02/20/17 17:00 Room Air Intake and Output 02/22/17 02/22/17 02/23/17 15:00 23:00 07:00 Intake Total 980 ml 60 ml Balance 980 ml 60 ml Exam nad, no mrg lungs clear abd soft no rashes Results Result Diagram: 02/22/17 0841 02/22/17 0841 Results 24 hrs Laboratory Tests Test 02/22/17 21:27 02/23/17 02:17 02/23/17 08:02 02/23/17 12:09 Bedside Glucose 299 H 161 123 129 Test 02/23/17 17:11 Bedside Glucose 112 Medications Medications Current Medications Ondansetron HCl (Zofran Inj) 4 mg Q6H PRN IV NAUSEA AND/OR VOMITING; Start at 11:30 Acetaminophen (Tylenol Tab) 650 mg Q6H PRN PO PAIN LEVEL 1-3 OR FEVER; Start at 11:30 Acetaminophen/ Hydrocodone Bitart ([place] (5/325)) 1 tab Q6H PRN PO MODERATE PAIN LEVEL 4-6; Start 02/15/17 at 11:30 Morphine Sulfate (morphine) 2 mg Q4H PRN IV SEVERE PAIN LEVEL 7-10; Start 02/15 at 11:30 Docusate Sodium (Colace) 100 mg Q12H PRN PO CONSTIPATION; Start 02/15/17 at 11: 30 Magnesium Hydroxide (Milk Of Mag) 30 ml DAILY PRN PO CONSTIPATION; Start at 11:30 Sodium Biphosphate/ Sodium Phosphate (Fleet Enema) 133 ml DAILY PRN [place] CONSTIPATION; Start 02/15/17 at 11:30 Heparin Sodium (Porcine) (Heparin (5000 Units/0.5 ml)) 5,000 unit Q12 SC Last administered on 02/23/17 08:14; Admin Dose 5,000 UNIT; Start 02/15/17 at 21:00 Nitroglycerin (Nitroglycerin (Sl Tab) 0.4 Mg) 1 tab Q5M PRN SL ANGINA; Start at 11:30 Folic Acid (Folic Acid) 1 mg DAILY PO Last administered on 02/23/17 08:04; Admin Dose 1 MG; Start 02/16/17 at 09:00 Insulin Glargine (Lantus) 20 unit QHS SC Last administered on 02/22/17 21:30; Admin Dose 20 UNIT; Start 02/15/17 at 21:00 Losartan Potassium (Cozaar) 50 mg DAILY PO Last administered on 02/17/17 09:17 ; Admin Dose 50 MG; Start 02/15/17 at 13:00; Status Future Hold Atorvastatin Calcium (Lipitor) 20 mg DAILY@21 PO Last administered on 02/22/17 21:23; Admin Dose 20 MG; Start 02/15/17 at 21:00 Glucose (Glutose) 15 gm Q15M PRN PO DECREASED GLUCOSE; Start 02/15/17 at 12:00 Glucose (Glutose) 22.5 gm Q15M PRN PO DECREASED GLUCOSE; Start 02/15/17 at 12: 00 Dextrose (D50w Syringe) 25 ml Q15M PRN IV DECREASED GLUCOSE; Start 02/15/17 at 12:00 Dextrose (D50w Syringe) 50 ml Q15M PRN IV DECREASED GLUCOSE; Start 02/15/17 at 12:00 Glucagon (Glucagen) 1 mg Q15M PRN IM DECREASED GLUCOSE; Start 02/15/17 at 12:00 Glucose (Glutose) 15 gm Q15M PRN BUCCAL DECREASED GLUCOSE; Start 02/15/17 at 12 :00 Diagnostic Test (Pha) (Accu-Chek) 1 ea 02 XX Last administered on 02/23/17 02: 15; Admin Dose 1 EA; Start 02/16/17 at 02:00 Mupirocin (Bactroban) 1 applic BID TOP Last administered on 02/23/17 08:04; Admin Dose 1 APPLIC; Start 02/17/17 at 10:00 Aspirin (Halfprin) 81 mg DAILY PO Last administered on 02/23/17 08:03; Admin Dose 81 MG; Start 02/18/17 at 09:00 Acetaminophen (Tylenol Tab) 650 mg Q4H PRN PO NON-CARDIAC PAIN LEVEL 1-3; Start 02/17/17 at 12:30 Oxycodone/ Acetaminophen (Percocet (5/ 325)) 1 tab Q4H PRN PO REPORTED NON- CARDIAC PAIN 4-7; Start 02/17/17 at 12:30 Ticagrelor (Brilinta) 90 mg BID PO Last administered on 02/23/17 08:13; Admin Dose 90 MG; Start 02/19/17 at 21:00 Furosemide (Lasix) 40 mg DAILY@06 PO Last administered on 02/23/17 06:31; Admin Dose 40 MG; Start 02/20/17 at 06:00 Latanoprost (Xalatan) 1 drop HS BOTH EYES Last administered on 02/22/17 21:23; Admin Dose 1 DROP; Start 02/20/17 at 21:00 Hydralazine HCl (Apresoline) 25 mg Q8 PO ; Start 02/23/17 at 22:00 SANTOSH GENTILE MD Feb 23, 2017 17:55
[2017-02-23] MEDS: ATORVASTATIN 20 MG TAB PO SCH (20:44)
[2017-02-23] MEDS: INSULIN GLARGINE [LANtus] 3 ML PEN SC SCH (20:52)
[2017-02-23] MEDS: LATANOPROST 0.005% 2.5 ML OPH BOTH EYES SCH (20:54)
[2017-02-24] VITALS (13 sets, daily range): BP systolic 128–155; BP diastolic 63–79; PULSE 82–92; RESP 16–21
[2017-02-24] MEDS: ACCU-CHEK XX SCH (02:00)
[2017-02-24] MEDS: FUROSEMIDE 40 MG TAB PO SCH (06:12)
[2017-02-24] MEDS: LEVOTHYROXINE 88 MCG TAB PO SCH (06:23)
[2017-02-24] MEDS: INSULIN ASPART [NOVOLOG] 3 ML PEN SC SCH ×4 (07:55→21:27)
[2017-02-24] MEDS: ASPIRIN (EC) 81 MG TAB PO SCH (09:13)
[2017-02-24] MEDS: FOLIC ACID 1 MG TAB PO SCH (09:13)
[2017-02-24] MEDS: MUPIROCIN 2% 22 GM OINT TOP SCH ×2 (09:15→21:20)
[2017-02-24] MEDS: HEPARIN 5,000 UNIT/0.5 ML VIAL SC SCH ×2 (09:22→21:26)
[2017-02-24] MEDS: TICAGRELOR 90 MG TABLET PO SCH ×2 (09:22→21:26)
--- NOTE | 2017-02-24 09:48 | PN ---
DATE: 02/24/2017 SUBJECTIVE DATA: The patient is stable. No events overnight. No fevers, chills, nausea, vomiting. OBJECTIVE DATA: VITAL SIGNS: Blood pressure is 136/66, respirations 20, pulse 88, temperature 98.6. HEENT: Head is normocephalic. NECK: Supple. HEART: Regular rate. LUNGS: Showed diminished breath sounds at the base. ABDOMEN: Soft, nontender to palpation. No rebound or guarding. EXTREMITIES: Negative for clubbing, cyanosis. No edema. DERMATOLOGIC: Clean. No rashes. MUSCULOSKELETAL: No joint effusion. NEUROLOGIC: No change in exam. MEDICATIONS: Reviewed. LABORATORY AND DIAGNOSTIC DATA: Reviewed. No new labs. ASSESSMENT AND PLAN: 1. Nonoliguric acute kidney injury on top of chronic kidney disease with previous baseline creatinine of 1.4 mg/dL. Etiology of acute kidney injury secondary to hemodynamics. The patient is status post cardiac catheterization. Continue current treatment, supportive care. Renally dose all meds. No evidence of contrast- associated nephropathy. 2. Hyponatremia, resolved. 3. Anemia. Monitor H and H levels. 4. Mineral bone disorder. Continue to monitor calcium and phosphorus levels. 5. Acute respiratory failure secondary to congestive heart failure. Clinically improving. Continue to monitor. 6. Aortic stenosis. 7. Diabetes. Continue Accu-Cheks and insulin sliding scale. 8. Hypothyroidism. Continue Synthroid. Dictated By: Jean Carlos Fischer DO /sha/dc /Document#: [id number]
--- NOTE | 2017-02-24 11:08 | CONS ---
Date/Time of Note Date/Time of Note DATE: 02/24/17 TIME: 11:07 Consult Date/Type/Reason Admit Date/Time Feb 15, 2017 at 10:26 Type of Consultation: Pulm Ordering Provider: GEORGINA HUTCHISON Subjective Improved heart rate following cessation of beta-bijal. Objective Vital Signs Date Time Temp Pulse Resp B/P Pulse Ox O2 Delivery O2 Flow Rate FiO2 02/24/17 08:24 87 02/24/17 07:41 98.6 20 136/66 98 02/23/17 16:08 21 02/21/17 06:09 2.0 02/20/17 17:00 Room Air Intake and Output 02/23/17 02/23/17 02/24/17 14:59 22:59 06:59 Intake Total 1000 ml 600 ml Balance 1000 ml 600 ml Exam PHYSICAL EXAMINATION GENERAL APPEARANCE: Well-nourished well-developed gentleman comfortable at rest comfortable at rest. No acute distress. VITAL SIGNS: NECK: Supple. No JVD, lymphadenopathy. CARDIAC: S1, S2. No added sounds or murmurs. CHEST: Diminished air entry bilaterally. ABDOMEN: Soft, nontender. No guarding or rebound. EXTREMITIES: No cyanosis, clubbing or edema. NEUROLOGIC: Grossly intact. There are no focal deficits. Results/Medications Result Diagram: 02/22/17 0841 02/22/17 0841 Results 24 hrs Laboratory Tests Test 02/23/17 12:09 02/23/17 17:11 02/23/17 20:40 02/24/17 02:07 Bedside Glucose 129 112 258 H 106 Test 02/24/17 08:36 Bedside Glucose 113 Medications Current Medications Ondansetron HCl (Zofran Inj) 4 mg Q6H PRN IV NAUSEA AND/OR VOMITING; Start at 11:30 Acetaminophen (Tylenol Tab) 650 mg Q6H PRN PO PAIN LEVEL 1-3 OR FEVER; Start at 11:30 Acetaminophen/ Hydrocodone Bitart ([place] (5/325)) 1 tab Q6H PRN PO MODERATE PAIN LEVEL 4-6; Start 02/15/17 at 11:30 Morphine Sulfate (morphine) 2 mg Q4H PRN IV SEVERE PAIN LEVEL 7-10; Start 02/15 at 11:30 Docusate Sodium (Colace) 100 mg Q12H PRN PO CONSTIPATION; Start 02/15/17 at 11: 30 Magnesium Hydroxide (Milk Of Mag) 30 ml DAILY PRN PO CONSTIPATION; Start at 11:30 Sodium Biphosphate/ Sodium Phosphate (Fleet Enema) 133 ml DAILY PRN [place] CONSTIPATION; Start 02/15/17 at 11:30 Heparin Sodium (Porcine) (Heparin (5000 Units/0.5 ml)) 5,000 unit Q12 SC Last administered on 02/24/17 09:22; Admin Dose 5,000 UNIT; Start 02/15/17 at 21:00 Nitroglycerin (Nitroglycerin (Sl Tab) 0.4 Mg) 1 tab Q5M PRN SL ANGINA; Start at 11:30 Folic Acid (Folic Acid) 1 mg DAILY PO Last administered on 02/24/17 09:13; Admin Dose 1 MG; Start 02/16/17 at 09:00 Insulin Glargine (Lantus) 20 unit QHS SC Last administered on 02/23/17 20:52; Admin Dose 20 UNIT; Start 02/15/17 at 21:00 Losartan Potassium (Cozaar) 50 mg DAILY PO Last administered on 02/17/17 09:17 ; Admin Dose 50 MG; Start 02/15/17 at 13:00; Status Future Hold Atorvastatin Calcium (Lipitor) 20 mg DAILY@21 PO Last administered on 02/23/17 20:44; Admin Dose 20 MG; Start 02/15/17 at 21:00 Glucose (Glutose) 15 gm Q15M PRN PO DECREASED GLUCOSE; Start 02/15/17 at 12:00 Glucose (Glutose) 22.5 gm Q15M PRN PO DECREASED GLUCOSE; Start 02/15/17 at 12: 00 Dextrose (D50w Syringe) 25 ml Q15M PRN IV DECREASED GLUCOSE; Start 02/15/17 at 12:00 Dextrose (D50w Syringe) 50 ml Q15M PRN IV DECREASED GLUCOSE; Start 02/15/17 at 12:00 Glucagon (Glucagen) 1 mg Q15M PRN IM DECREASED GLUCOSE; Start 02/15/17 at 12:00 Glucose (Glutose) 15 gm Q15M PRN BUCCAL DECREASED GLUCOSE; Start 02/15/17 at 12 :00 Diagnostic Test (Pha) (Accu-Chek) 1 ea 02 XX Last administered on 02/23/17 02: 15; Admin Dose 1 EA; Start 02/16/17 at 02:00 Mupirocin (Bactroban) 1 applic BID TOP Last administered on 02/24/17 09:15; Admin Dose 1 APPLIC; Start 02/17/17 at 10:00 Aspirin (Halfprin) 81 mg DAILY PO Last administered on 02/24/17 09:13; Admin Dose 81 MG; Start 02/18/17 at 09:00 Acetaminophen (Tylenol Tab) 650 mg Q4H PRN PO NON-CARDIAC PAIN LEVEL 1-3; Start 02/17/17 at 12:30 Oxycodone/ Acetaminophen (Percocet (5/ 325)) 1 tab Q4H PRN PO REPORTED NON- CARDIAC PAIN 4-7; Start 02/17/17 at 12:30 Ticagrelor (Brilinta) 90 mg BID PO Last administered on 02/24/17 09:22; Admin Dose 90 MG; Start 02/19/17 at 21:00 Furosemide (Lasix) 40 mg DAILY@06 PO Last administered on 02/24/17 06:12; Admin Dose 40 MG; Start 02/20/17 at 06:00 Latanoprost (Xalatan) 1 drop HS BOTH EYES Last administered on 02/23/17 20:54; Admin Dose 1 DROP; Start 02/20/17 at 21:00 Hydralazine HCl (Apresoline) 25 mg Q8 PO Last administered on 02/24/17 06:11; Admin Dose 25 MG; Start 02/23/17 at 22:00 Assessment/Plan Chief Complaint/Hosp Course IMPRESSION: 1. Hypoxemic respiratory failure likely secondary to acute on chronic left ventricular heart failure.Clinically improved with diuretics. 2. Possible community-acquired pneumonia. 3. History of aortic valve replacement status post transcatheter aortic valve replacement. Status post PCI with stent placement. 2.1 heart block improved following cessation of beta-bijal. PLAN: 1. Continue cardiac recommendations, review medications 2. Continue supplemental O2. 3. Ambulate as tolerated 4. Encourage out of bed. 5. DVT and GI prophylaxis. cardiac recs. Discharge planning okay from pulmonary standpoint Problems: YOBANY PALUMBO MD, [facility] Feb 24, 2017 11:08
--- NOTE | 2017-02-24 12:16 | CONS ---
Date/Time of Note Date/Time of Note DATE: 02/24/17 TIME: 12:10 Assessment/Plan Assessment/Plan Chief Complaint/Hosp Course IMP: 1.CHF-systolic acute on chronic. 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 LBBB 7.Nstemi-mild positive troponin. Now post-op s/p LHC with PTCA/stent to distal LMN due to 95% stenosis with 3.5 CHAMP 8. Heart block-episodes of 2:1 block and HR to high 20's-improved with d/c on BB but did again have short recurrence this am x 10-15 seconds REcc: -Tele monitoring -Hold BB and follow HR/rhythm closely and reccomend placement of ICD/PPM which I will try and facilitate for tomorrow but if unable due to scheduling then ml gallardo ok for d/c with placement of ICD/PPM early next week. -Continue PO lasix diuresis -strict I/O's -continue statin -Continue asa/brilinta -Continue hydralazine afterload reduction in lieu of ACEI at this time given acute on chronic renal failure Problems: Consultation Date/Type/Reason Admit Date/Time Feb 15, 2017 at 10:26 Initial Consult Date 02/15/17 Type of Consultation: cardiology Reason for Consultation Nstemi/CHF Referring Provider: GEORGINA HUTCHISON Exam/Review of Systems Vital Signs Vitals Vital Signs Date Time Temp Pulse Resp B/P Pulse Ox O2 Delivery O2 Flow Rate FiO2 02/24/17 08:24 87 02/24/17 07:41 98.6 20 136/66 98 02/23/17 16:08 21 02/21/17 06:09 2.0 02/20/17 17:00 Room Air Intake and Output 02/23/17 02/23/17 02/24/17 14:59 22:59 06:59 Intake Total 1000 ml 600 ml Balance 1000 ml 600 ml Exam Review of Systems: CONSTITUTIONAL: No fevers, chills. PULMONARY: No sob CARDIOVASCULAR: No chest pain/palpitations GASTROINTESTINAL: No nausea/vomiting. GENITOURINARY: No hematuria/dysuria. MUSCULOSKELETAL: No myagias/arthalgias. PSYCHIATRIC: The patient denies depression. NEUROLOGIC: No weakness Constitutional: alert Psych: no complaints Head: normocephalic ENMT: mucosa pink and moist Neck: jvd, supple Respiratory: diminished breath sounds (at bases/B) Cardiovascular: regular rate and rhythm Gastrointestinal: non-tender, soft Musculoskeletal: muscle tone (normal) Extremities: edema (none) Neurological: other (No focakl deficits) Results Result Diagram: 02/22/17 0841 02/22/17 0841 Results 24 hrs Laboratory Tests Test 02/23/17 17:11 02/23/17 20:40 02/24/17 02:07 02/24/17 08:36 Bedside Glucose 112 258 H 106 113 Medications Medications Current Medications Ondansetron HCl (Zofran Inj) 4 mg Q6H PRN IV NAUSEA AND/OR VOMITING; Start at 11:30 Acetaminophen (Tylenol Tab) 650 mg Q6H PRN PO PAIN LEVEL 1-3 OR FEVER; Start at 11:30 Acetaminophen/ Hydrocodone Bitart ([place] (5/325)) 1 tab Q6H PRN PO MODERATE PAIN LEVEL 4-6; Start 02/15/17 at 11:30 Morphine Sulfate (morphine) 2 mg Q4H PRN IV SEVERE PAIN LEVEL 7-10; Start 02/15 at 11:30 Docusate Sodium (Colace) 100 mg Q12H PRN PO CONSTIPATION; Start 02/15/17 at 11: 30 Magnesium Hydroxide (Milk Of Mag) 30 ml DAILY PRN PO CONSTIPATION; Start at 11:30 Sodium Biphosphate/ Sodium Phosphate (Fleet Enema) 133 ml DAILY PRN [place] CONSTIPATION; Start 02/15/17 at 11:30 Heparin Sodium (Porcine) (Heparin (5000 Units/0.5 ml)) 5,000 unit Q12 SC Last administered on 02/24/17t 09:22; Admin Dose 5,000 UNIT; Start 02/15/17 at 21:00 Nitroglycerin (Nitroglycerin (Sl Tab) 0.4 Mg) 1 tab Q5M PRN SL ANGINA; Start at 11:30 Folic Acid (Folic Acid) 1 mg DAILY PO Last administered on 02/24/17 09:13; Admin Dose 1 MG; Start 02/16/17 at 09:00 Insulin Glargine (Lantus) 20 unit QHS SC Last administered on 02/23/17 20:52; Admin Dose 20 UNIT; Start 02/15/17 at 21:00 Losartan Potassium (Cozaar) 50 mg DAILY PO Last administered on 02/17/17 09:17 ; Admin Dose 50 MG; Start 02/15/17 at 13:00; Status Future Hold Atorvastatin Calcium (Lipitor) 20 mg DAILY@21 PO Last administered on 02/23/17 20:44; Admin Dose 20 MG; Start 02/15/17 at 21:00 Glucose (Glutose) 15 gm Q15M PRN PO DECREASED GLUCOSE; Start 02/15/17 at 12:00 Glucose (Glutose) 22.5 gm Q15M PRN PO DECREASED GLUCOSE; Start 02/15/17 at 12: 00 Dextrose (D50w Syringe) 25 ml Q15M PRN IV DECREASED GLUCOSE; Start 02/15/17 at 12:00 Dextrose (D50w Syringe) 50 ml Q15M PRN IV DECREASED GLUCOSE; Start 02/15/17 at 12:00 Glucagon (Glucagen) 1 mg Q15M PRN IM DECREASED GLUCOSE; Start 02/15/17 at 12:00 Glucose (Glutose) 15 gm Q15M PRN BUCCAL DECREASED GLUCOSE; Start 02/15/17 at 12 :00 Diagnostic Test (Pha) (Accu-Chek) 1 ea 02 XX Last administered on 02/23/17 02: 15; Admin Dose 1 EA; Start 02/16/17 at 02:00 Mupirocin (Bactroban) 1 applic BID TOP Last administered on 02/24/17 09:15; Admin Dose 1 APPLIC; Start 02/17/17 at 10:00 Aspirin (Halfprin) 81 mg DAILY PO Last administered on 02/24/17 09:13; Admin Dose 81 MG; Start 02/18/17 at 09:00 Acetaminophen (Tylenol Tab) 650 mg Q4H PRN PO NON-CARDIAC PAIN LEVEL 1-3; Start 02/17/17 at 12:30 Oxycodone/ Acetaminophen (Percocet (5/ 325)) 1 tab Q4H PRN PO REPORTED NON- CARDIAC PAIN 4-7; Start 02/17/17 at 12:30 Ticagrelor (Brilinta) 90 mg BID PO Last administered on 02/24/17 09:22; Admin Dose 90 MG; Start 02/19/17 at 21:00 Furosemide (Lasix) 40 mg DAILY@06 PO Last administered on 02/24/17 06:12; Admin Dose 40 MG; Start 02/20/17 at 06:00 Latanoprost (Xalatan) 1 drop HS BOTH EYES Last administered on 02/23/17 20:54; Admin Dose 1 DROP; Start 02/20/17 at 21:00 Hydralazine HCl (Apresoline) 25 mg Q8 PO Last administered on 02/24/17 06:11; Admin Dose 25 MG; Start 02/23/17 at 22:00 ELEANOR ROLDAN Feb 24, 2017 12:16
--- NOTE | 2017-02-24 13:17 | PN ---
Date/Time of Note Date/Time of Note DATE: 02/24/17 TIME: 13:15 Assessment/Plan VTE Prophylaxis VTE Prophylaxis Intervention: SCD's Lines/Catheters IV Catheter Type (from Nrsg): Saline Lock Urinary Cath still in place: No Assessment/Plan Assessment/Plan 81 yo M with pmhx CAD sp PCI, sp AVR admitted for SOB found to have acute on chronic systolic HF and NSETMI. Still with occ eps of low HR overnight with episodes of AV 2-2 block. #arrhythmia -tentative PM placement tomorrow by cardiology -cont to hold bb (last dose 9.5 at 9am) #NSTEMI: sp PCI from cardiology, plavix changed to Brilinta #acute on chronic CHF: cont lasix #KEN on CKD: renal on cs, resume home acei #DM2: cont home lantus #hypothyroid: cont home synthroid #HTN, HL, h/o CAD: cont home meds except acei as noted, bb stopped, and change from plavix to Brilinta dc as per cardiology Exam/Review of Systems Vital Signs Vitals Vital Signs Date Time Temp Pulse Resp B/P Pulse Ox O2 Delivery O2 Flow Rate FiO2 02/24/17 12:46 89 02/24/17 12:33 02/24/17 12:17 98.7 20 155/72 98 02/21/17 06:09 2.0 02/20/17 17:00 Room Air Intake and Output 02/23/17 02/23/17 02/24/17 14:59 22:59 06:59 Intake Total 1000 ml 600 ml Balance 1000 ml 600 ml Results Result Diagram: 02/22/17 0841 02/22/17 0841 Results 24 hrs Laboratory Tests Test 02/23/17 17:11 02/23/17 20:40 02/24/17 02:07 02/24/17 08:36 Bedside Glucose 112 258 H 106 113 Medications Medications Current Medications Ondansetron HCl (Zofran Inj) 4 mg Q6H PRN IV NAUSEA AND/OR VOMITING; Start at 11:30 Acetaminophen (Tylenol Tab) 650 mg Q6H PRN PO PAIN LEVEL 1-3 OR FEVER; Start at 11:30 Acetaminophen/ Hydrocodone Bitart ([place] (5/325)) 1 tab Q6H PRN PO MODERATE PAIN LEVEL 4-6; Start 02/15/17 at 11:30 Morphine Sulfate (morphine) 2 mg Q4H PRN IV SEVERE PAIN LEVEL 7-10; Start 02/15 at 11:30 Docusate Sodium (Colace) 100 mg Q12H PRN PO CONSTIPATION; Start 02/15/17 at 11: 30 Magnesium Hydroxide (Milk Of Mag) 30 ml DAILY PRN PO CONSTIPATION; Start at 11:30 Sodium Biphosphate/ Sodium Phosphate (Fleet Enema) 133 ml DAILY PRN [place] CONSTIPATION; Start 02/15/17 at 11:30 Heparin Sodium (Porcine) (Heparin (5000 Units/0.5 ml)) 5,000 unit Q12 SC Last administered on 02/24/17 09:22; Admin Dose 5,000 UNIT; Start 02/15/17 at 21:00 Nitroglycerin (Nitroglycerin (Sl Tab) 0.4 Mg) 1 tab Q5M PRN SL ANGINA; Start at 11:30 Folic Acid (Folic Acid) 1 mg DAILY PO Last administered on 02/24/17 09:13; Admin Dose 1 MG; Start 02/16/17 at 09:00 Insulin Glargine (Lantus) 20 unit QHS SC Last administered on 02/23/17 20:52; Admin Dose 20 UNIT; Start 02/15/17 at 21:00 Losartan Potassium (Cozaar) 50 mg DAILY PO Last administered on 02/17/17 09:17 ; Admin Dose 50 MG; Start 02/15/17 at 13:00; Status Future Hold Atorvastatin Calcium (Lipitor) 20 mg DAILY@21 PO Last administered on 02/23/17 20:44; Admin Dose 20 MG; Start 02/15/17 at 21:00 Glucose (Glutose) 15 gm Q15M PRN PO DECREASED GLUCOSE; Start 02/15/17 at 12:00 Glucose (Glutose) 22.5 gm Q15M PRN PO DECREASED GLUCOSE; Start 02/15/17 at 12: 00 Dextrose (D50w Syringe) 25 ml Q15M PRN IV DECREASED GLUCOSE; Start 02/15/17 at 12:00 Dextrose (D50w Syringe) 50 ml Q15M PRN IV DECREASED GLUCOSE; Start 02/15/17 at 12:00 Glucagon (Glucagen) 1 mg Q15M PRN IM DECREASED GLUCOSE; Start 02/15/17 at 12:00 Glucose (Glutose) 15 gm Q15M PRN BUCCAL DECREASED GLUCOSE; Start 02/15/17 at 12 :00 Diagnostic Test (Pha) (Accu-Chek) 1 ea 02 XX Last administered on 02/23/17 02: 15; Admin Dose 1 EA; Start 02/16/17 at 02:00 Mupirocin (Bactroban) 1 applic BID TOP Last administered on 02/24/17 09:15; Admin Dose 1 APPLIC; Start 02/17/17 at 10:00 Aspirin (Halfprin) 81 mg DAILY PO Last administered on 02/24/17 09:13; Admin Dose 81 MG; Start 02/18/17 at 09:00 Acetaminophen (Tylenol Tab) 650 mg Q4H PRN PO NON-CARDIAC PAIN LEVEL 1-3; Start 02/17/17 at 12:30 Oxycodone/ Acetaminophen (Percocet (5/ 325)) 1 tab Q4H PRN PO REPORTED NON- CARDIAC PAIN 4-7; Start 02/17/17 at 12:30 Ticagrelor (Brilinta) 90 mg BID PO Last administered on 02/24/17 09:22; Admin Dose 90 MG; Start 02/19/17 at 21:00 Furosemide (Lasix) 40 mg DAILY@06 PO Last administered on 02/24/17 06:12; Admin Dose 40 MG; Start 02/20/17 at 06:00 Latanoprost (Xalatan) 1 drop HS BOTH EYES Last administered on 02/23/17 20:54; Admin Dose 1 DROP; Start 02/20/17 at 21:00 Hydralazine HCl 25 mg 25 mg Q8 PO Last administered on 02/24/17 06:11; Admin Dose 25 MG; Start 02/23/17 at 22:00 Cefazolin Sodium (Ancef 1 Gm/50 ml (Pmx)) 50 ml @ 100 mls/hr OC ONCE IVPB ; Start 02/25/17 at 11:00; Stop 02/25/17 at 11:29 SANTOSH GENTILE MD Feb 24, 2017 13:17
[2017-02-24 14:58] LABS: CALCIUM 9.4 mg/dl (8.4-10.2); CREATININE 1.61 mg/dl (0.61-1.24); POTASSIUM 3.9 mmol/L (3.5-5.1)
--- NOTE | 2017-02-24 15:00 | RADRPT ---
PROCEDURE: XR Chest. CLINICAL INDICATION: Congestive heart failure TECHNIQUE: Single frontal view of the chest was obtained COMPARISON: 02/17/2017 FINDINGS: No pleural effusion or pneumothorax. No consolidation. Stable top normal cardiac silhouette. Calcified aortic arch and tortuous thoracic aorta suggestive of chronic systemic hypertension. No acute osseous abnormality. IMPRESSION: No acute cardiopulmonary disease. RPTAT: EE Physician Maverick Date Time Electronically viewed and signed by Edwina Marie Physician on 02/24/2017 14:59 /
[2017-02-24] MEDS: LATANOPROST 0.005% 2.5 ML OPH BOTH EYES SCH (21:19)
[2017-02-24] MEDS: ATORVASTATIN 20 MG TAB PO SCH (21:19)
[2017-02-24] MEDS: INSULIN GLARGINE [LANtus] 3 ML PEN SC SCH (21:27)
[2017-02-25] VITALS (25 sets, daily range): BP systolic 130–164; BP diastolic 60–89; PULSE 34–95; RESP 14–22
[2017-02-25] MEDS: ACCU-CHEK XX SCH (02:00)
[2017-02-25] MEDS: LEVOTHYROXINE 88 MCG TAB PO SCH (06:36)
[2017-02-25] MEDS: FUROSEMIDE 40 MG TAB PO SCH (06:36)
[2017-02-25 07:38] LABS: BASOPHILS % 0.2 % (0.0-2.0); EOSINOPHILS # 0.1 10^3/ul (0.0-0.5); EOSINOPHILS % 1.2 % (0.0-7.0); HEMATOCRIT 28.9 % (42.0-52.0); HEMOGLOBIN 9.3 g/dl (14.0-18.0); LYMPHOCYTES # 1.3 10^3/ul (0.8-2.9); LYMPHOCYTES % 26.3 % (15.0-51.0); MEAN CORPUSCULAR HEMOGLOBIN 26.1 pg (29.0-33.0); MEAN CORPUSCULAR HGB CONC 32.2 g/dl (32.0-37.0); MEAN CORPUSCULAR VOLUME 81.2 fl (82.0-101.0); MEAN PLATELET VOLUME 10.8 fl (7.4-10.4); MONOCYTE # 0.6 10^3/ul (0.3-0.9); MONOCYTES % 12.2 % (0.0-11.0); NEUTROPHILS % 58.1 % (39.0-77.0); PLATELET COUNT 233 10^3/UL (140-415); RED BLOOD COUNT 3.56 10^6/ul (4.70-6.10); RED CELL DISTRIBUTION WIDTH 17.5 % (11.5-14.5); WHITE BLOOD COUNT 4.9 10^3/ul (4.8-10.8)
[2017-02-25] MEDS: INSULIN ASPART [NOVOLOG] 3 ML PEN SC SCH ×4 (07:55→21:40)
[2017-02-25 07:57] LABS: INR 1.01; PROTIME 13.3 Sec (12.2-14.2)
[2017-02-25] MEDS: HEPARIN 5,000 UNIT/0.5 ML VIAL SC SCH (09:00)
[2017-02-25] MEDS: FOLIC ACID 1 MG TAB PO SCH (09:43)
[2017-02-25] MEDS: MUPIROCIN 2% 22 GM OINT TOP SCH ×2 (09:43→21:34)
[2017-02-25] MEDS: ASPIRIN (EC) 81 MG TAB PO SCH (09:43)
--- NOTE | 2017-02-25 09:43 | PN ---
DATE: 02/25/2017 SUBJECTIVE DATA: The patient is stable. No events overnight. No fevers, chills, nausea or vomiting. OBJECTIVE DATA: VITAL SIGNS: Blood pressure 130/69, respirations 18, pulse 83, temperature 98.4. HEENT: Head is normocephalic. NECK: Supple. HEART: Regular rate. LUNGS: Showed diminished breath sounds at the base. ABDOMEN: Soft, nontender to palpation. There is no guarding. EXTREMITIES: Negative for clubbing or cyanosis. No edema. DERMATOLOGIC: No rashes. MUSCULOSKELETAL: No joint effusion. NEUROLOGIC: No change in exam. MEDICATIONS: Reviewed. LABORATORY AND DIAGNOSTIC DATA: Reviewed. Labs this morning are pending. ASSESSMENT AND PLAN: 1. Nonoliguric acute kidney injury on top of chronic kidney disease with previous baseline creatinine of 1.4 mg/dL. Etiology secondary to hemodynamics. Renal function appears to be at previous baseline. We will continue current treatment and supportive care and renally dose all meds. 2. Anemia. Monitor hemoglobin and hematocrit levels. 3. Mineral bone disorder. Monitor calcium and phosphorus levels. 4. Hyponatremia. Resolved. 5. Acute respiratory failure. 6. Congestive heart failure. Improving. Continue medical management. 7. Arrhythmia. The patient is pending possible pacemaker placement. 8. Diabetes. Continue Accu-Cheks and sliding scale. 9. Hypothyroidism. Continue Synthroid. 10. History of coronary artery disease. Continue medical management. Dictated By: Jean Cralos Fischer DO /sha/monster /Document#: [id number]
[2017-02-25] MEDS: TICAGRELOR 90 MG TABLET PO SCH ×2 (09:51→21:55)
[2017-02-25] MEDS ORDERED: CEFAZOLIN 1 GM/50 ML (PMX) 50 ML IVPB ONE (11:00)
--- NOTE | 2017-02-25 13:59 | CONS ---
Date/Time of Note Date/Time of Note DATE: 02/25/17 TIME: 13:57 Assessment/Plan Assessment/Plan Chief Complaint/Hosp Course IMP: 1.CHF-systolic acute on chronic. 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 LBBB 7.Nstemi-mild positive troponin. Now post-op s/p LHC with PTCA/stent to distal LMN due to 95% stenosis with 3.5 CHAMP 8. Heart block-episodes of 2:1 block and HR to high 20's-intially improved with d/c on BB but then again hu short recurrence 02/24 with HR to high 20's REcc: -Tele monitoring -Hold BB -Continue PO lasix diuresis -strict I/O's -continue statin -Continue asa/brilinta -Continue hydralazine with slight increase afterload reduction in lieu of ACEI at this time given acute on chronic renal failure -ICD placement today Problems: Consultation Date/Type/Reason Admit Date/Time Feb 15, 2017 at 10:26 Initial Consult Date 02/15/17 Type of Consultation: cardiology Reason for Consultation CHF Referring Provider: GEORGINA HUTCHISON Exam/Review of Systems Vital Signs Vitals Vital Signs Date Time Temp Pulse Resp B/P Pulse Ox O2 Delivery O2 Flow Rate FiO2 02/25/17 12:06 82 02/25/17 11:36 98.0 18 148/73 98 02/24/17 12:33 Intake and Output 02/24/17 02/24/17 02/25/17 15:00 23:00 07:00 Intake Total 800 ml Balance 800 ml Exam Review of Systems: CONSTITUTIONAL: No fevers, chills. PULMONARY: No sob CARDIOVASCULAR: No chest pain/palpitations GASTROINTESTINAL: No nausea/vomiting. GENITOURINARY: No hematuria/dysuria. MUSCULOSKELETAL: No myagias/arthalgias. PSYCHIATRIC: The patient denies depression. NEUROLOGIC: No weakness Constitutional: alert, oriented Psych: no complaints Head: normocephalic ENMT: mucosa pink and moist Neck: jvd (9 cm water), supple Respiratory: clear to auscultation Cardiovascular: regular rate and rhythm Gastrointestinal: non-tender, soft Musculoskeletal: muscle tone (normal) Extremities: edema (none) Neurological: other (NO focal deficits) Results Result Diagram: 02/25/17 0617 02/24/17 1414 Results 24 hrs Laboratory Tests Test 02/24/17 14:14 02/24/17 18:10 02/24/17 21:18 02/25/17 03:24 Sodium Level 142 Potassium Level 3.9 Chloride Level 106 Carbon Dioxide Level 25 Anion Gap 15 Blood Urea Nitrogen 32 H Creatinine 1.61 H Glucose Level 185 Calcium Level 9.4 Bedside Glucose 180 213 109 Test 02/25/17 06:00 02/25/17 06:17 02/25/17 08:34 02/25/17 13:02 Prothrombin Time 13.3 Prothrombin Time Ratio 1.0 INR International Normalized Ratio 1.01 White Blood Count 4.9 Red Blood Count 3.56 L Hemoglobin 9.3 L Hematocrit 28.9 L Mean Corpuscular Volume 81.2 L Mean Corpuscular Hemoglobin 26.1 L Mean Corpuscular Hemoglobin Concent 32.2 Red Cell Distribution Width 17.5 H Platelet Count 233 Mean Platelet Volume 10.8 H Neutrophils % 58.1 Lymphocytes % 26.3 Monocytes % 12.2 H Eosinophils % 1.2 Basophils % 0.2 Nucleated Red Blood Cells % 0.0 Neutrophils # (Manual) 2.8 Lymphocytes # 1.3 Monocytes # 0.6 Eosinophils # 0.1 Basophils # 0.0 Nucleated Red Blood Cells # 0.0 Bedside Glucose 85 87 Medications Medications Current Medications Ondansetron HCl (Zofran Inj) 4 mg Q6H PRN IV NAUSEA AND/OR VOMITING; Start at 11:30 Acetaminophen (Tylenol Tab) 650 mg Q6H PRN PO PAIN LEVEL 1-3 OR FEVER; Start at 11:30 Acetaminophen/ Hydrocodone Bitart ([place] (5/325)) 1 tab Q6H PRN PO MODERATE PAIN LEVEL 4-6; Start 02/15/17 at 11:30 Morphine Sulfate (morphine) 2 mg Q4H PRN IV SEVERE PAIN LEVEL 7-10; Start 02/15 at 11:30 Docusate Sodium (Colace) 100 mg Q12H PRN PO CONSTIPATION; Start 02/15/17 at 11: 30 Magnesium Hydroxide (Milk Of Mag) 30 ml DAILY PRN PO CONSTIPATION; Start at 11:30 Sodium Biphosphate/ Sodium Phosphate (Fleet Enema) 133 ml DAILY PRN [place] CONSTIPATION; Start 02/15/17 at 11:30 Heparin Sodium (Porcine) (Heparin (5000 Units/0.5 ml)) 5,000 unit Q12 SC Last administered on 02/24/17 21:26; Admin Dose 5,000 UNIT; Start 02/15/17 at 21:00 Nitroglycerin (Nitroglycerin (Sl Tab) 0.4 Mg) 1 tab Q5M PRN SL ANGINA; Start at 11:30 Folic Acid (Folic Acid) 1 mg DAILY PO Last administered on 02/25/17 09:43; Admin Dose 1 MG; Start 02/16/17 at 09:00 Insulin Glargine (Lantus) 20 unit QHS SC Last administered on 02/24/17 21:27; Admin Dose 20 UNIT; Start 02/15/17 at 21:00 Losartan Potassium (Cozaar) 50 mg DAILY PO Last administered on 02/17/17 09:17 ; Admin Dose 50 MG; Start 02/15/17 at 13:00; Status Future Hold Atorvastatin Calcium (Lipitor) 20 mg DAILY@21 PO Last administered on 02/24/17 21:19; Admin Dose 20 MG; Start 02/15/17 at 21:00 Glucose (Glutose) 15 gm Q15M PRN PO DECREASED GLUCOSE; Start 02/15/17 at 12:00 Glucose (Glutose) 22.5 gm Q15M PRN PO DECREASED GLUCOSE; Start 02/15/17 at 12: 00 Dextrose (D50w Syringe) 25 ml Q15M PRN IV DECREASED GLUCOSE; Start 02/15/17 at 12:00 Dextrose (D50w Syringe) 50 ml Q15M PRN IV DECREASED GLUCOSE; Start 02/15/17 at 12:00 Glucagon (Glucagen) 1 mg Q15M PRN IM DECREASED GLUCOSE; Start 02/15/17 at 12:00 Glucose (Glutose) 15 gm Q15M PRN BUCCAL DECREASED GLUCOSE; Start 02/15/17 at 12 :00 Diagnostic Test (Pha) (Accu-Chek) 1 ea 02 XX Last administered on 02/23/17 02: 15; Admin Dose 1 EA; Start 02/16/17 at 02:00 Mupirocin (Bactroban) 1 applic BID TOP Last administered on 02/25/17 09:43; Admin Dose 1 APPLIC; Start 02/17/17 at 10:00 Aspirin (Halfprin) 81 mg DAILY PO Last administered on 02/25/17 09:43; Admin Dose 81 MG; Start 02/18/17 at 09:00 Acetaminophen (Tylenol Tab) 650 mg Q4H PRN PO NON-CARDIAC PAIN LEVEL 1-3; Start 02/17/17 at 12:30 Oxycodone/ Acetaminophen (Percocet (5/ 325)) 1 tab Q4H PRN PO REPORTED NON- CARDIAC PAIN 4-7; Start 02/17/17 at 12:30 Ticagrelor (Brilinta) 90 mg BID PO Last administered on 02/25/17 09:51; Admin Dose 90 MG; Start 02/19/17 at 21:00 Furosemide (Lasix) 40 mg DAILY@06 PO Last administered on 02/25/17 06:36; Admin Dose 40 MG; Start 02/20/17 at 06:00 Latanoprost (Xalatan) 1 drop HS BOTH EYES Last administered on 02/24/17 21:19; Admin Dose 1 DROP; Start 02/20/17 at 21:00 Hydralazine HCl (Apresoline) 25 mg Q8 PO Last administered on 02/25/17 06:37; Admin Dose 25 MG; Start 02/23/17 at 22:00 ELEANOR ROLDAN Feb 25, 2017 13:59
--- NOTE | 2017-02-25 14:33 | CONS ---
Date/Time of Note Date/Time of Note DATE: 02/25/17 TIME: 14:30 Consult Date/Type/Reason Admit Date/Time Feb 15, 2017 at 10:26 Type of Consultation: Pulmonary Ordering Provider: GEORGINA HUTCHISON Subjective Patient remains comfortable this morning. Objective Vital Signs Date Time Temp Pulse Resp B/P Pulse Ox O2 Delivery O2 Flow Rate FiO2 02/25/17 12:06 82 02/25/17 11:36 98.0 18 148/73 98 02/24/17 12:33 Intake and Output 02/24/17 02/24/17 02/25/17 15:00 23:00 07:00 Intake Total 800 ml Balance 800 ml Exam PHYSICAL EXAMINATION GENERAL APPEARANCE: Well-nourished well-developed gentleman comfortable at rest comfortable at rest. No acute distress. VITAL SIGNS: NECK: Supple. No JVD, lymphadenopathy. CARDIAC: S1, S2. No added sounds or murmurs. CHEST: Diminished air entry bilaterally. ABDOMEN: Soft, nontender. No guarding or rebound. EXTREMITIES: No cyanosis, clubbing or edema. NEUROLOGIC: Grossly intact. There are no focal deficits. Results/Medications Result Diagram: 02/25/17 0617 02/24/17 1414 Results 24 hrs Laboratory Tests Test 02/24/17 18:10 02/24/17 21:18 02/25/17 03:24 02/25/17 06:00 Bedside Glucose 180 213 109 Prothrombin Time 13.3 Prothrombin Time Ratio 1.0 INR International Normalized Ratio 1.01 Test 02/25/17 06:17 02/25/17 08:34 02/25/17 13:02 White Blood Count 4.9 Red Blood Count 3.56 L Hemoglobin 9.3 L Hematocrit 28.9 L Mean Corpuscular Volume 81.2 L Mean Corpuscular Hemoglobin 26.1 L Mean Corpuscular Hemoglobin Concent 32.2 Red Cell Distribution Width 17.5 H Platelet Count 233 Mean Platelet Volume 10.8 H Neutrophils % 58.1 Lymphocytes % 26.3 Monocytes % 12.2 H Eosinophils % 1.2 Basophils % 0.2 Nucleated Red Blood Cells % 0.0 Neutrophils # (Manual) 2.8 Lymphocytes # 1.3 Monocytes # 0.6 Eosinophils # 0.1 Basophils # 0.0 Nucleated Red Blood Cells # 0.0 Bedside Glucose 85 87 Medications Current Medications Ondansetron HCl (Zofran Inj) 4 mg Q6H PRN IV NAUSEA AND/OR VOMITING; Start at 11:30 Acetaminophen (Tylenol Tab) 650 mg Q6H PRN PO PAIN LEVEL 1-3 OR FEVER; Start at 11:30 Acetaminophen/ Hydrocodone Bitart ([place] (5/325)) 1 tab Q6H PRN PO MODERATE PAIN LEVEL 4-6; Start 02/15/17 at 11:30 Morphine Sulfate (morphine) 2 mg Q4H PRN IV SEVERE PAIN LEVEL 7-10; Start 02/15 at 11:30 Docusate Sodium (Colace) 100 mg Q12H PRN PO CONSTIPATION; Start 02/15/17 at 11: 30 Magnesium Hydroxide (Milk Of Mag) 30 ml DAILY PRN PO CONSTIPATION; Start at 11:30 Sodium Biphosphate/ Sodium Phosphate (Fleet Enema) 133 ml DAILY PRN [place] CONSTIPATION; Start 02/15/17 at 11:30 Heparin Sodium (Porcine) (Heparin (5000 Units/0.5 ml)) 5,000 unit Q12 SC Last administered on 02/24/17 21:26; Admin Dose 5,000 UNIT; Start 02/15/17 at 21:00 Nitroglycerin (Nitroglycerin (Sl Tab) 0.4 Mg) 1 tab Q5M PRN SL ANGINA; Start at 11:30 Folic Acid (Folic Acid) 1 mg DAILY PO Last administered on 02/25/17 09:43; Admin Dose 1 MG; Start 02/16/17 at 09:00 Insulin Glargine (Lantus) 20 unit QHS SC Last administered on 02/24/17 21:27; Admin Dose 20 UNIT; Start 02/15/17 at 21:00 Losartan Potassium (Cozaar) 50 mg DAILY PO Last administered on 02/17/17 09:17 ; Admin Dose 50 MG; Start 02/15/17 at 13:00; Status Future Hold Atorvastatin Calcium (Lipitor) 20 mg DAILY@21 PO Last administered on 02/24/17 21:19; Admin Dose 20 MG; Start 02/15/17 at 21:00 Glucose (Glutose) 15 gm Q15M PRN PO DECREASED GLUCOSE; Start 02/15/17 at 12:00 Glucose (Glutose) 22.5 gm Q15M PRN PO DECREASED GLUCOSE; Start 02/15/17 at 12: 00 Dextrose (D50w Syringe) 25 ml Q15M PRN IV DECREASED GLUCOSE; Start 02/15/17 at 12:00 Dextrose (D50w Syringe) 50 ml Q15M PRN IV DECREASED GLUCOSE; Start 02/15/17 at 12:00 Glucagon (Glucagen) 1 mg Q15M PRN IM DECREASED GLUCOSE; Start 02/15/17 at 12:00 Glucose (Glutose) 15 gm Q15M PRN BUCCAL DECREASED GLUCOSE; Start 02/15/17 at 12 :00 Diagnostic Test (Pha) (Accu-Chek) 1 ea 02 XX Last administered on 02/23/17 02: 15; Admin Dose 1 EA; Start 02/16/17 at 02:00 Mupirocin (Bactroban) 1 applic BID TOP Last administered on 02/25/17 09:43; Admin Dose 1 APPLIC; Start 02/17/17 at 10:00 Aspirin (Halfprin) 81 mg DAILY PO Last administered on 02/25/17 09:43; Admin Dose 81 MG; Start 02/18/17 at 09:00 Acetaminophen (Tylenol Tab) 650 mg Q4H PRN PO NON-CARDIAC PAIN LEVEL 1-3; Start 02/17/17 at 12:30 Oxycodone/ Acetaminophen (Percocet (5/ 325)) 1 tab Q4H PRN PO REPORTED NON- CARDIAC PAIN 4-7; Start 02/17/17 at 12:30 Ticagrelor (Brilinta) 90 mg BID PO Last administered on 02/25/17 09:51; Admin Dose 90 MG; Start 02/19/17 at 21:00 Furosemide (Lasix) 40 mg DAILY@06 PO Last administered on 02/25/17 06:36; Admin Dose 40 MG; Start 02/20/17 at 06:00 Latanoprost (Xalatan) 1 drop HS BOTH EYES Last administered on 02/24/17 21:19; Admin Dose 1 DROP; Start 02/20/17 at 21:00 Hydralazine HCl (Apresoline) 50 mg Q8 PO ; Start 02/25/17 at 14:00 Assessment/Plan Chief Complaint/Hosp Course IMPRESSION: 1. Hypoxemic respiratory failure likely secondary to acute on chronic left ventricular heart failure.Clinically improved with diuretics. 2. Possible community-acquired pneumonia. 3. History of aortic valve replacement status post transcatheter aortic valve replacement. Status post PCI with stent placement. 2.1 heart block improved following cessation of beta-bijal. PLAN: 1. Continue cardiac recommendations, review medications 2. Continue supplemental O2. 3. Ambulate as tolerated 4. Encourage out of bed. 5. DVT and GI prophylaxis. cardiac recs. Discharge planning okay from pulmonary standpoint Problems: YOBANY PALUMBO MD, [facility] Feb 25, 2017 14:33
[2017-02-25] MEDS ORDERED: LIDOCAINE 1%/EPI 30 ML INJ ONE ×2 (15:15→15:26)
[2017-02-25] MEDS ORDERED: POLYMYXIN/BACITRACIN 1L IRRIG ONE (15:17)
[2017-02-25] MEDS ORDERED: MIDAZOLAM 1 MG/ML 2 ML INJ ONE (15:39)
[2017-02-25] MEDS ORDERED: FENTAnyl 50 MCG/ML VIAL ONE (15:40)
[2017-02-25] MEDS ORDERED: LIDOCAINE 2% (SDV) 5 ML INJ ONE ×2 (15:44→15:45)
[2017-02-25] MEDS ORDERED: PROPOFOL 20 ML ONE (15:44)
--- NOTE | 2017-02-25 16:25 | SIPON ---
Date/Time of Note Date/Time of Note DATE: 02/25/17 TIME: 16:23 Operative Report Free Text/Dictation s/p [place] VVI 60 - full note dictated # [id number] Preoperative Diagnosis Isch CMY, EFD < 30, Class III chf, no rev dz, on med rx Postoperative Diagnosis Same Surgeon: DONNA MORALES MD Anesthesia Type: MAC, moderate sedation Estimated Blood Loss: 0 - 10 ml's Transfusion Required: no Complications: no DONNA MORALES MD Feb 25, 2017 16:25
[2017-02-25] MEDS ORDERED: ACETAMINOPHEN 325 MG TAB PO PRN (16:30)
[2017-02-25] MEDS ORDERED: morphine 2 MG INJ IV PRN (16:30)
--- NOTE | 2017-02-25 17:50 | RADRPT ---
PROCEDURE: XR Chest 1 View. CLINICAL INDICATION: Status post pacemaker placement. TECHNIQUE: AP view of the chest was obtained. COMPARISON: Yesterday. FINDINGS: The heart size is within normal limits. Calcified atherosclerosis is noted in the aorta. Left-sided AICD has its lead over the heart. Replacement aortic valve is identified. The lungs are hyperexpand ed. No consolidations are identified. No pneumothorax is seen. Osseous structures are unchanged. IMPRESSION: Calcified atherosclerosis in the aorta. Left-sided AICD with its lead over the heart. No visualized pneumothorax. Hyperexpanded, clear lungs. RPTAT: AA .Leonard Gonzales MD, MD Date Time Electronically viewed and signed by .Leonard Gonzales MD, MD on 02/25/2017 17:50 .P/
--- NOTE | 2017-02-25 19:10 | PN ---
Date/Time of Note Date/Time of Note DATE: 02/25/17 TIME: 19:08 Assessment/Plan VTE Prophylaxis VTE Prophylaxis Intervention: SCD's Lines/Catheters IV Catheter Type (from Nrsg): Peripheral IV Urinary Cath still in place: No Assessment/Plan Assessment/Plan 81 yo M with pmhx CAD sp PCI, sp AVR admitted for SOB found to have acute on chronic systolic HF and NSETMI and AV 2-2 heart block. #arrhythmia -PM to be placed today #NSTEMI: sp PCI plavix changed to Brilinta #acute on chronic CHF: cont lasix #KEN on CKD: renal on cs, resumed home acei #DM2: cont home lantus #hypothyroid: cont home synthroid #HTN, HL, h/o CAD: cont home meds except bb stopped for bradycardia, can likely resume after PM placement, and changed from plavix to Brilinta dc as per cardiology Subjective 24 Hr Interval Summary Free Text/Dictation Going for PM today Exam/Review of Systems Vital Signs Vitals Vital Signs Date Time Temp Pulse Resp B/P Pulse Ox O2 Delivery O2 Flow Rate FiO2 02/25/17 17:38 86 17 163/82 98 Room Air 02/25/17 11:36 98.0 02/24/17 12:33 Intake and Output 02/24/17 02/24/17 02/25/17 15:00 23:00 07:00 Intake Total 800 ml Balance 800 ml Exam in good spirits nad no mrg lungs clear abd soft no rashes Results Result Diagram: 02/25/17 0617 02/24/17 1414 Results 24 hrs Laboratory Tests Test 02/24/17 21:18 02/25/17 03:24 02/25/17 06:00 02/25/17 06:17 Bedside Glucose 213 109 Prothrombin Time 13.3 Prothrombin Time Ratio 1.0 INR International Normalized Ratio 1.01 White Blood Count 4.9 Red Blood Count 3.56 L Hemoglobin 9.3 L Hematocrit 28.9 L Mean Corpuscular Volume 81.2 L Mean Corpuscular Hemoglobin 26.1 L Mean Corpuscular Hemoglobin Concent 32.2 Red Cell Distribution Width 17.5 H Platelet Count 233 Mean Platelet Volume 10.8 H Neutrophils % 58.1 Lymphocytes % 26.3 Monocytes % 12.2 H Eosinophils % 1.2 Basophils % 0.2 Nucleated Red Blood Cells % 0.0 Neutrophils # (Manual) 2.8 Lymphocytes # 1.3 Monocytes # 0.6 Eosinophils # 0.1 Basophils # 0.0 Nucleated Red Blood Cells # 0.0 Test 02/25/17 08:34 02/25/17 13:02 02/25/17 14:40 02/25/17 18:33 Bedside Glucose 85 87 90 116 Medications Medications Current Medications Ondansetron HCl (Zofran Inj) 4 mg Q6H PRN IV NAUSEA AND/OR VOMITING; Start at 11:30 Acetaminophen (Tylenol Tab) 650 mg Q6H PRN PO PAIN LEVEL 1-3 OR FEVER; Start at 11:30 Acetaminophen/ Hydrocodone Bitart ([place] (5/325)) 1 tab Q6H PRN PO MODERATE PAIN LEVEL 4-6; Start 02/15/17 at 11:30 Morphine Sulfate (morphine) 2 mg Q4H PRN IV SEVERE PAIN LEVEL 7-10; Start 02/15 at 11:30 Docusate Sodium (Colace) 100 mg Q12H PRN PO CONSTIPATION; Start 02/15/17 at 11: 30 Magnesium Hydroxide (Milk Of Mag) 30 ml DAILY PRN PO CONSTIPATION; Start at 11:30 Sodium Biphosphate/ Sodium Phosphate (Fleet Enema) 133 ml DAILY PRN [place] CONSTIPATION; Start 02/15/17 at 11:30 Nitroglycerin (Nitroglycerin (Sl Tab) 0.4 Mg) 1 tab Q5M PRN SL ANGINA; Start at 11:30 Folic Acid (Folic Acid) 1 mg DAILY PO Last administered on 02/25/17 09:43; Admin Dose 1 MG; Start 02/16/17 at 09:00 Insulin Glargine (Lantus) 20 unit QHS SC Last administered on 02/24/17 21:27; Admin Dose 20 UNIT; Start 02/15/17 at 21:00 Losartan Potassium (Cozaar) 50 mg DAILY PO Last administered on 02/17/17 09:17 ; Admin Dose 50 MG; Start 02/15/17 at 13:00; Status Future Hold Atorvastatin Calcium (Lipitor) 20 mg DAILY@21 PO Last administered on 02/24/17 21:19; Admin Dose 20 MG; Start 02/15/17 at 21:00 Glucose (Glutose) 15 gm Q15M PRN PO DECREASED GLUCOSE; Start 02/15/17 at 12:00 Glucose (Glutose) 22.5 gm Q15M PRN PO DECREASED GLUCOSE; Start 02/15/17 at 12: 00 Dextrose (D50w Syringe) 25 ml Q15M PRN IV DECREASED GLUCOSE; Start 02/15/17 at 12:00 Dextrose (D50w Syringe) 50 ml Q15M PRN IV DECREASED GLUCOSE; Start 02/15/17 at 12:00 Glucagon (Glucagen) 1 mg Q15M PRN IM DECREASED GLUCOSE; Start 02/15/17 at 12:00 Glucose (Glutose) 15 gm Q15M PRN BUCCAL DECREASED GLUCOSE; Start 02/15/17 at 12 :00 Diagnostic Test (Pha) (Accu-Chek) 1 ea 02 XX Last administered on 02/23/17 02: 15; Admin Dose 1 EA; Start 02/16/17 at 02:00 Mupirocin (Bactroban) 1 applic BID TOP Last administered on 02/25/17 09:43; Admin Dose 1 APPLIC; Start 02/17/17 at 10:00 Aspirin (Halfprin) 81 mg DAILY PO Last administered on 02/25/17 09:43; Admin Dose 81 MG; Start 02/18/17 at 09:00 Acetaminophen (Tylenol Tab) 650 mg Q4H PRN PO NON-CARDIAC PAIN LEVEL 1-3; Start 02/17/17 at 12:30 Oxycodone/ Acetaminophen (Percocet (5/ 325)) 1 tab Q4H PRN PO REPORTED NON- CARDIAC PAIN 4-7; Start 02/17/17 at 12:30 Ticagrelor (Brilinta) 90 mg BID PO Last administered on 02/25/17 09:51; Admin Dose 90 MG; Start 02/19/17 at 21:00 Furosemide (Lasix) 40 mg DAILY@06 PO Last administered on 02/25/17 06:36; Admin Dose 40 MG; Start 02/20/17 at 06:00 Latanoprost (Xalatan) 1 drop HS BOTH EYES Last administered on 02/24/17 21:19; Admin Dose 1 DROP; Start 02/20/17 at 21:00 Hydralazine HCl (Apresoline) 50 mg Q8 PO ; Start 02/25/17 at 14:00 Morphine Sulfate 2 mg 2 mg Q2H PRN IV FOR NON CARDIAC PAIN (4-10); Start at 16:30 Cefazolin Sodium (Ancef 1 Gm/50 ml (Pmx)) 50 ml @ 100 mls/hr Q8 IVPB ; Start at 22:00 Miscellaneous Information (* Miscellaneous Pharmacy Order) DC all Lovenox, Hepari... ONCE XX ; Start 02/25/17 at 16:30 SANTOSH GENTILE MD Feb 25, 2017 19:10
[2017-02-25] MEDS: ATORVASTATIN 20 MG TAB PO SCH (21:34)
[2017-02-25] MEDS: CEFAZOLIN 1 GM/50 ML (PMX) 50 ML IVPB SCH (21:35)
[2017-02-25] MEDS: INSULIN GLARGINE [LANtus] 3 ML PEN SC SCH (21:40)
[2017-02-25] MEDS: LATANOPROST 0.005% 2.5 ML OPH BOTH EYES SCH (21:42)
[2017-02-25] MEDS: morphine 2 MG INJ IV PRN (22:08)
[2017-02-26] VITALS (11 sets, daily range): BP systolic 109–152; BP diastolic 58–79; PULSE 83–99; RESP 16–19
[2017-02-26] MEDS: ACCU-CHEK XX SCH (03:00)
[2017-02-26] MEDS: LEVOTHYROXINE 88 MCG TAB PO SCH (06:35)
[2017-02-26] MEDS: CEFAZOLIN 1 GM/50 ML (PMX) 50 ML IVPB SCH ×3 (06:38→21:09)
[2017-02-26] MEDS: FUROSEMIDE 40 MG TAB PO SCH (06:38)
[2017-02-26 07:12] LABS: BASOPHILS % 0.2 % (0.0-2.0); EOSINOPHILS # 0.1 10^3/ul (0.0-0.5); EOSINOPHILS % 1.3 % (0.0-7.0); HEMATOCRIT 29.3 % (42.0-52.0); HEMOGLOBIN 9.6 g/dl (14.0-18.0); LYMPHOCYTES # 1.5 10^3/ul (0.8-2.9); LYMPHOCYTES % 24.4 % (15.0-51.0); MEAN CORPUSCULAR HEMOGLOBIN 26.7 pg (29.0-33.0); MEAN CORPUSCULAR HGB CONC 32.8 g/dl (32.0-37.0); MEAN CORPUSCULAR VOLUME 81.6 fl (82.0-101.0); MEAN PLATELET VOLUME 10.4 fl (7.4-10.4); MONOCYTE # 0.5 10^3/ul (0.3-0.9); MONOCYTES % 8.6 % (0.0-11.0); NEUTROPHILS % 63.4 % (39.0-77.0); PLATELET COUNT 210 10^3/UL (140-415); RED BLOOD COUNT 3.59 10^6/ul (4.70-6.10); RED CELL DISTRIBUTION WIDTH 17.8 % (11.5-14.5); WHITE BLOOD COUNT 6.3 10^3/ul (4.8-10.8)
[2017-02-26] MEDS: morphine 2 MG INJ IV PRN ×2 (07:20→09:42)
[2017-02-26 07:37] LABS: CALCIUM 9.3 mg/dl (8.4-10.2); CREATININE 1.36 mg/dl (0.61-1.24); POTASSIUM 3.7 mmol/L (3.5-5.1)
[2017-02-26] MEDS: INSULIN ASPART [NOVOLOG] 3 ML PEN SC SCH ×4 (07:53→21:07)
[2017-02-26] MEDS: ASPIRIN (EC) 81 MG TAB PO SCH (09:11)
[2017-02-26] MEDS: FOLIC ACID 1 MG TAB PO SCH (09:11)
[2017-02-26] MEDS: TICAGRELOR 90 MG TABLET PO SCH ×2 (09:40→21:03)
[2017-02-26] MEDS: MUPIROCIN 2% 22 GM OINT TOP SCH ×2 (09:41→21:09)
--- NOTE | 2017-02-26 13:54 | PN ---
Date/Time of Note Date/Time of Note DATE: 02/26/17 TIME: 13:53 Assessment/Plan VTE Prophylaxis VTE Prophylaxis Intervention: SCD's Lines/Catheters IV Catheter Type (from Nrsg): Peripheral IV Urinary Cath still in place: No Assessment/Plan Assessment/Plan 81 yo M with pmhx CAD sp PCI, sp AVR admitted for SOB found to have acute on chronic systolic HF and NSETMI and AV 2-2 heart block. #arrhythmia sp PM placement 9.8 #NSTEMI: sp PCI plavix changed to Brilinta #acute on chronic CHF: cont lasix #KEN on CKD: renal on cs, resumed home acei #DM2: cont home lantus #hypothyroid: cont home synthroid #HTN, HL, h/o CAD: cont home meds except bb stopped for bradycardia, can likely resume after PM placement, and changed from plavix to Brilinta dc as per cardiology Subjective 24 Hr Interval Summary Free Text/Dictation Reports some discomfort around device site Exam/Review of Systems Vital Signs Vitals Vital Signs Date Time Temp Pulse Resp B/P Pulse Ox O2 Delivery O2 Flow Rate FiO2 02/26/17 12:00 88 02/26/17 11:50 98.0 18 129/67 98 02/26/17 04:00 Room Air 02/24/17 12:33 Intake and Output 02/25/17 02/25/17 02/26/17 15:00 23:00 07:00 Intake Total 300 ml 50 ml 450 ml Output Total 750 ml Balance 300 ml 50 ml -300 ml Exam nad device site covered no mrg lungs clear no rashes Results Result Diagram: 02/26/17 0605 02/26/17 0605 Results 24 hrs Laboratory Tests Test 02/25/17 14:40 02/25/17 18:33 02/25/17 21:31 02/26/17 03:03 Bedside Glucose 90 116 208 96 Test 02/26/17 06:05 02/26/17 07:46 02/26/17 12:18 White Blood Count 6.3 # Red Blood Count 3.59 L Hemoglobin 9.6 L Hematocrit 29.3 L Mean Corpuscular Volume 81.6 L Mean Corpuscular Hemoglobin 26.7 L Mean Corpuscular Hemoglobin Concent 32.8 Red Cell Distribution Width 17.8 H Platelet Count 210 Mean Platelet Volume 10.4 Neutrophils % 63.4 Lymphocytes % 24.4 Monocytes % 8.6 Eosinophils % 1.3 Basophils % 0.2 Nucleated Red Blood Cells % 0.0 Neutrophils # (Manual) 4.0 Lymphocytes # 1.5 Monocytes # 0.5 Eosinophils # 0.1 Basophils # 0.0 Nucleated Red Blood Cells # 0.0 Sodium Level 141 Potassium Level 3.7 Chloride Level 108 Carbon Dioxide Level 24 Anion Gap 13 Blood Urea Nitrogen 25 H Creatinine 1.36 H Glucose Level 100 # Calcium Level 9.3 Bedside Glucose 139 222 H Medications Medications Current Medications Ondansetron HCl (Zofran Inj) 4 mg Q6H PRN IV NAUSEA AND/OR VOMITING; Start at 11:30 Acetaminophen (Tylenol Tab) 650 mg Q6H PRN PO PAIN LEVEL 1-3 OR FEVER; Start at 11:30 Acetaminophen/ Hydrocodone Bitart ([place] (5/325)) 1 tab Q6H PRN PO MODERATE PAIN LEVEL 4-6; Start 02/15/17 at 11:30 Morphine Sulfate (morphine) 2 mg Q4H PRN IV SEVERE PAIN LEVEL 7-10 Last administered on 02/26/17 07:20; Admin Dose 2 MG; Start 02/15/17 at 11:30 Docusate Sodium (Colace) 100 mg Q12H PRN PO CONSTIPATION; Start 02/15/17 at 11: 30 Magnesium Hydroxide (Milk Of Mag) 30 ml DAILY PRN PO CONSTIPATION; Start at 11:30 Sodium Biphosphate/ Sodium Phosphate (Fleet Enema) 133 ml DAILY PRN [place] CONSTIPATION; Start 02/15/17 at 11:30 Nitroglycerin (Nitroglycerin (Sl Tab) 0.4 Mg) 1 tab Q5M PRN SL ANGINA; Start at 11:30 Folic Acid (Folic Acid) 1 mg DAILY PO Last administered on 02/26/17 09:11; Admin Dose 1 MG; Start 02/16/17 at 09:00 Insulin Glargine (Lantus) 20 unit QHS SC Last administered on 02/25/17 21:40; Admin Dose 20 UNIT; Start 02/15/17 at 21:00 Losartan Potassium (Cozaar) 50 mg DAILY PO Last administered on 02/17/17 09:17 ; Admin Dose 50 MG; Start 02/15/17 at 13:00; Status Future Hold Atorvastatin Calcium (Lipitor) 20 mg DAILY@21 PO Last administered on 02/25/17 21:34; Admin Dose 20 MG; Start 02/15/17 at 21:00 Glucose (Glutose) 15 gm Q15M PRN PO DECREASED GLUCOSE; Start 02/15/17 at 12:00 Glucose (Glutose) 22.5 gm Q15M PRN PO DECREASED GLUCOSE; Start 02/15/17 at 12: 00 Dextrose (D50w Syringe) 25 ml Q15M PRN IV DECREASED GLUCOSE; Start 02/15/17 at 12:00 Dextrose (D50w Syringe) 50 ml Q15M PRN IV DECREASED GLUCOSE; Start 02/15/17 at 12:00 Glucagon (Glucagen) 1 mg Q15M PRN IM DECREASED GLUCOSE; Start 02/15/17 at 12:00 Glucose (Glutose) 15 gm Q15M PRN BUCCAL DECREASED GLUCOSE; Start 02/15/17 at 12 :00 Diagnostic Test (Pha) (Accu-Chek) 1 ea 02 XX Last administered on 02/23/17 02: 15; Admin Dose 1 EA; Start 02/16/17 at 02:00 Mupirocin (Bactroban) 1 applic BID TOP Last administered on 02/26/17 09:41; Admin Dose 1 APPLIC; Start 02/17/17 at 10:00 Aspirin (Halfprin) 81 mg DAILY PO Last administered on 02/26/17 09:11; Admin Dose 81 MG; Start 02/18/17 at 09:00 Acetaminophen (Tylenol Tab) 650 mg Q4H PRN PO NON-CARDIAC PAIN LEVEL 1-3; Start 02/17/17 at 12:30 Oxycodone/ Acetaminophen (Percocet (5/ 325)) 1 tab Q4H PRN PO REPORTED NON- CARDIAC PAIN 4-7; Start 02/17/17 at 12:30 Ticagrelor (Brilinta) 90 mg BID PO Last administered on 02/26/17 09:40; Admin Dose 90 MG; Start 02/19/17 at 21:00 Furosemide (Lasix) 40 mg DAILY@06 PO Last administered on 02/26/17 06:38; Admin Dose 40 MG; Start 02/20/17 at 06:00 Latanoprost (Xalatan) 1 drop HS BOTH EYES Last administered on 02/25/17 21:42; Admin Dose 1 DROP; Start 02/20/17 at 21:00 Hydralazine HCl (Apresoline) 50 mg Q8 PO Last administered on 02/26/17 06:38; Admin Dose 50 MG; Start 02/25/17 at 14:00 Morphine Sulfate 2 mg 2 mg Q2H PRN IV FOR NON CARDIAC PAIN (4-10); Start at 16:30 Cefazolin Sodium (Ancef 1 Gm/50 ml (Pmx)) 50 ml @ 100 mls/hr Q8 IVPB Last administered on 02/26/17 06:38; Admin Dose 100 MLS/HR; Start 02/25/17 at 22:00 Miscellaneous Information (* Miscellaneous Pharmacy Order) DC all Lovenox, Hepari... ONCE XX ; Start 02/25/17 at 16:30 SANTOSH GENTILE MD Feb 26, 2017 13:53
--- NOTE | 2017-02-26 15:59 | PN ---
DATE: 02/26/2017 SUBJECTIVE DATA: The patient is stable. No events overnight. No fevers, chills, nausea, vomiting. No shortness of breath. OBJECTIVE DATA: VITAL SIGNS: Blood pressure is 144/70, pulse 97, respiration 18, temperature 98.1. HEENT: Head is normocephalic. NECK: Supple. HEART: Regular rate. LUNGS: Diminished breath sounds at the base. ABDOMEN: Soft, nontender to palpation. No rebound or guarding. EXTREMITIES: Negative for clubbing, cyanosis. No edema. DERMATOLOGIC: No rashes. MUSCULOSKELETAL: No joint effusion. NEUROLOGIC: Unchanged exam. MEDICATIONS: Reviewed. LABORATORY AND DIAGNOSTIC DATA: White count 6.3, hemoglobin 9.6, hematocrit 29.3, platelet count 210,000. Sodium 141, potassium 2.7, BUN 25, creatinine 1.36. ASSESSMENT AND PLAN: 1. Nonoliguric acute kidney injury on top of chronic kidney disease. Etiology of acute kidney injury secondary to hemodynamics. Renal function currently at baseline. Continue current treatment plan and supportive care. Renally dose all medications. 2. Anemia. Monitor hemoglobin and hematocrit levels. 3. Mineral bone disorder. Monitor calcium and phosphorus levels. 4. Hyponatremia, resolved. 5. Arrhythmia status post pacemaker placement. 6. Congestive heart failure. Continue medical management. 7. Diabetes. Continue Accu-Cheks and sliding scale. 8. Hypothyroidism. Continue Synthroid. 9. History of coronary artery disease. Continue medical management. Dictated By: Jean Carlos Fischer DO /[email or web address] /Document#: [id number]
--- NOTE | 2017-02-26 16:51 | CONS ---
Date/Time of Note Date/Time of Note DATE: 02/26/17 TIME: 16:47 Assessment/Plan Assessment/Plan Additional Assessment/Plan CAD s/p SD s/p PTCA Ischemic cardiomyopathy S/p AICD S/P TAVR CHF Heart Block 2:1 Diabetes Dyslipidemia Hypothyroidism Clinically and hemodynamically stable Continue Brilinta and ASA Continue Lasix Continue Levothyroxine Continue Insulin Continue Lipitor Continue antibiotics Consultation Date/Type/Reason Admit Date/Time Feb 15, 2017 at 10:26 Constitutional: improved Respiratory: shortness of breath (with exertion) Psychological: no complaints Past Medical History Medical History: congestive heart failure, coronary artery disease, hypertension Past Surgical History Past Surgical Hx: angioplasty Social History Smoking Status: Never smoker Exam/Review of Systems Vital Signs Vitals Vital Signs Date Time Temp Pulse Resp B/P Pulse Ox O2 Delivery O2 Flow Rate FiO2 02/26/17 16:00 97 02/26/17 11:50 98.0 18 129/67 98 02/26/17 04:00 Room Air 02/24/17 12:33 Intake and Output 02/25/17 02/25/17 02/26/17 15:00 23:00 07:00 Intake Total 300 ml 50 ml 450 ml Output Total 750 ml Balance 300 ml 50 ml -300 ml Exam Constitutional: alert, oriented Head: atraumatic, normocephalic Respiratory: diminished breath sounds Cardiovascular: regular rate and rhythm Gastrointestinal: nl liver, spleen, non-tender, soft Extremities: normal pulses Results Result Diagram: 02/26/17 0605 02/26/17 0605 Results 24 hrs Laboratory Tests Test 02/25/17 18:33 02/25/17 21:31 02/26/17 03:03 02/26/17 06:05 Bedside Glucose 116 208 96 White Blood Count 6.3 # Red Blood Count 3.59 L Hemoglobin 9.6 L Hematocrit 29.3 L Mean Corpuscular Volume 81.6 L Mean Corpuscular Hemoglobin 26.7 L Mean Corpuscular Hemoglobin Concent 32.8 Red Cell Distribution Width 17.8 H Platelet Count 210 Mean Platelet Volume 10.4 Neutrophils % 63.4 Lymphocytes % 24.4 Monocytes % 8.6 Eosinophils % 1.3 Basophils % 0.2 Nucleated Red Blood Cells % 0.0 Neutrophils # (Manual) 4.0 Lymphocytes # 1.5 Monocytes # 0.5 Eosinophils # 0.1 Basophils # 0.0 Nucleated Red Blood Cells # 0.0 Sodium Level 141 Potassium Level 3.7 Chloride Level 108 Carbon Dioxide Level 24 Anion Gap 13 Blood Urea Nitrogen 25 H Creatinine 1.36 H Glucose Level 100 # Calcium Level 9.3 Test 02/26/17 07:46 02/26/17 12:18 Bedside Glucose 139 222 H Medications Medications Current Medications Ondansetron HCl (Zofran Inj) 4 mg Q6H PRN IV NAUSEA AND/OR VOMITING; Start at 11:30 Acetaminophen (Tylenol Tab) 650 mg Q6H PRN PO PAIN LEVEL 1-3 OR FEVER; Start at 11:30 Acetaminophen/ Hydrocodone Bitart ([place] (5/325)) 1 tab Q6H PRN PO MODERATE PAIN LEVEL 4-6; Start 02/15/17 at 11:30 Morphine Sulfate (morphine) 2 mg Q4H PRN IV SEVERE PAIN LEVEL 7-10 Last administered on 02/26/17 07:20; Admin Dose 2 MG; Start 02/15/17 at 11:30 Docusate Sodium (Colace) 100 mg Q12H PRN PO CONSTIPATION; Start 02/15/17 at 11: 30 Magnesium Hydroxide (Milk Of Mag) 30 ml DAILY PRN PO CONSTIPATION; Start at 11:30 Sodium Biphosphate/ Sodium Phosphate (Fleet Enema) 133 ml DAILY PRN [place] CONSTIPATION; Start 02/15/17 at 11:30 Nitroglycerin (Nitroglycerin (Sl Tab) 0.4 Mg) 1 tab Q5M PRN SL ANGINA; Start at 11:30 Folic Acid (Folic Acid) 1 mg DAILY PO Last administered on 02/26/17 09:11; Admin Dose 1 MG; Start 02/16/17 at 09:00 Insulin Glargine (Lantus) 20 unit QHS SC Last administered on 02/25/17 21:40; Admin Dose 20 UNIT; Start 02/15/17 at 21:00 Losartan Potassium (Cozaar) 50 mg DAILY PO Last administered on 02/17/17 09:17 ; Admin Dose 50 MG; Start 02/15/17 at 13:00; Status Future Hold Atorvastatin Calcium (Lipitor) 20 mg DAILY@21 PO Last administered on 02/25/17 21:34; Admin Dose 20 MG; Start 02/15/17 at 21:00 Glucose (Glutose) 15 gm Q15M PRN PO DECREASED GLUCOSE; Start 02/15/17 at 12:00 Glucose (Glutose) 22.5 gm Q15M PRN PO DECREASED GLUCOSE; Start 02/15/17 at 12: 00 Dextrose (D50w Syringe) 25 ml Q15M PRN IV DECREASED GLUCOSE; Start 02/15/17 at 12:00 Dextrose (D50w Syringe) 50 ml Q15M PRN IV DECREASED GLUCOSE; Start 02/15/17 at 12:00 Glucagon (Glucagen) 1 mg Q15M PRN IM DECREASED GLUCOSE; Start 02/15/17 at 12:00 Glucose (Glutose) 15 gm Q15M PRN BUCCAL DECREASED GLUCOSE; Start 02/15/17 at 12 :00 Diagnostic Test (Pha) (Accu-Chek) 1 ea 02 XX Last administered on 02/23/17 02: 15; Admin Dose 1 EA; Start 02/16/17 at 02:00 Mupirocin (Bactroban) 1 applic BID TOP Last administered on 02/26/17 09:41; Admin Dose 1 APPLIC; Start 02/17/17 at 10:00 Aspirin (Halfprin) 81 mg DAILY PO Last administered on 02/26/17 09:11; Admin Dose 81 MG; Start 02/18/17 at 09:00 Acetaminophen (Tylenol Tab) 650 mg Q4H PRN PO NON-CARDIAC PAIN LEVEL 1-3; Start 02/17/17 at 12:30 Oxycodone/ Acetaminophen (Percocet (5/ 325)) 1 tab Q4H PRN PO REPORTED NON- CARDIAC PAIN 4-7; Start 02/17/17 at 12:30 Ticagrelor (Brilinta) 90 mg BID PO Last administered on 02/26/17 09:40; Admin Dose 90 MG; Start 02/19/17 at 21:00 Furosemide (Lasix) 40 mg DAILY@06 PO Last administered on 02/26/17 06:38; Admin Dose 40 MG; Start 02/20/17 at 06:00 Latanoprost (Xalatan) 1 drop HS BOTH EYES Last administered on 02/25/17 21:42; Admin Dose 1 DROP; Start 02/20/17 at 21:00 Hydralazine HCl (Apresoline) 50 mg Q8 PO Last administered on 02/26/17 14:53; Admin Dose 50 MG; Start 02/25/17 at 14:00 Morphine Sulfate 2 mg 2 mg Q2H PRN IV FOR NON CARDIAC PAIN (4-10); Start at 16:30 Cefazolin Sodium (Ancef 1 Gm/50 ml (Pmx)) 50 ml @ 100 mls/hr Q8 IVPB Last administered on 02/26/17 14:52; Admin Dose 100 MLS/HR; Start 02/25/17 at 22:00 Miscellaneous Information (* Miscellaneous Pharmacy Order) DC all Lovenox, Hepari... ONCE XX ; Start 02/25/17 at 16:30 ROSA HAY M.D. Feb 26, 2017 16:51
[2017-02-26] MEDS: ATORVASTATIN 20 MG TAB PO SCH (21:00)
[2017-02-26] MEDS: LATANOPROST 0.005% 2.5 ML OPH BOTH EYES SCH (21:08)
[2017-02-26] MEDS: INSULIN GLARGINE [LANtus] 3 ML PEN SC SCH (21:08)
[2017-02-27] VITALS (7 sets, daily range): BP systolic 138–158; BP diastolic 70–77; PULSE 64–100; RESP 18–20
[2017-02-27] MEDS: ACCU-CHEK XX SCH (02:00)
[2017-02-27] MEDS: CEFAZOLIN 1 GM/50 ML (PMX) 50 ML IVPB SCH ×2 (06:01→14:00)
[2017-02-27] MEDS: FUROSEMIDE 40 MG TAB PO SCH (06:01)
[2017-02-27] MEDS: LEVOTHYROXINE 88 MCG TAB PO SCH (06:02)
[2017-02-27] MEDS: INSULIN ASPART [NOVOLOG] 3 ML PEN SC SCH ×2 (07:55→11:50)
[2017-02-27] MEDS: TICAGRELOR 90 MG TABLET PO SCH (08:14)
[2017-02-27] MEDS: MUPIROCIN 2% 22 GM OINT TOP SCH (09:02)
[2017-02-27] MEDS: FOLIC ACID 1 MG TAB PO SCH (09:02)
[2017-02-27] MEDS: ASPIRIN (EC) 81 MG TAB PO SCH (09:02)
--- NOTE | 2017-02-27 09:05 | PN ---
DATE: 02/27/2017 SUBJECTIVE DATA: The patient is stable. No events overnight. No fevers, chills, nausea, vomiting. OBJECTIVE DATA: VITAL SIGNS: Blood pressure 130/70, respirations 20, pulse temperature 98.1. HEENT: Head is normocephalic. NECK: Supple. HEART: Regular rate. LUNGS: Diminished breath sounds at the base. ABDOMEN: Soft, nontender to palpation. No rebound or guarding. EXTREMITIES: Negative for clubbing, cyanosis. No edema. DERMATOLOGIC: Clean. No rashes. MUSCULOSKELETAL: No joint effusion. NEUROLOGIC: Unchanged exam. MEDICATIONS: Reviewed. LABORATORY AND DIAGNOSTIC DATA: Been reviewed. No new labs. ASSESSMENT AND PLAN: 1. Nonoliguric acute kidney injury on top of chronic kidney disease, etiology of acute kidney injury secondary to hemodynamics. Renal function has currently returned to baseline. Continue current treatment plan. Supportive care. Renally dose all medications. 2. Anemia. Monitor H and H levels. 3. Mineral bone disorder. Monitor calcium and phosphorus levels. 4. Hyponatremia, resolved. 5. Arrhythmia status post pacemaker placement. 6. Congestive heart failure. Continue medical management. 7. Diabetes. Continue Accu-Cheks and [place] sliding scale. 8. Hypothyroidism. Continue Synthroid. 9. History of chronic disease. Continue medical management. Dictated By: Jean Carlos Fischer DO /sha/cassidy /Document#: [id number]
[2017-02-27] MEDS ORDERED: FURO40TA4 PO (10:23)
[2017-02-27] MEDS ORDERED: TICA90TA PO (10:23)
--- NOTE | 2017-02-27 10:26 | PDOCDIS ---
Discharge Instructions CONDITION Patient Condition: Stable HOME CARE INSTRUCTIONS: Special Diet: CARDIAC FOLLOW UP/APPOINTMENTS Follow-up Plan Follow up with Dr Flores this week We made the following changed from your admission medications: STOPPED plavix, lisinopril, carvedilol STARTED Brilinta/Ticagrelor DECREASED Furosemide/lasix from twice daily to just daily SANTOSH GENTILE MD Feb 27, 2017 10:26
--- NOTE | 2017-02-27 10:29 | DS ---
Date/Time of Note Date/Time of Note DATE: 02/27/17 TIME: 10:27 Discharge Summary Admission/Discharge Info Admit Date/Time Feb 15, 2017 at 10:26 Discharge Date/Time Discharge Diagnosis NSTEMI, high grade AV block Patient Condition: Stable Consults cardiology, nephrology Procedures 02.15 TTE Conclusions 1. Normal left ventricular cavity size. Mild concentric left ventricular hypertrophy. Severe global left ventricular systolic dysfunction. Ejection fraction is visually estimated at 25-30 %. 2. Trace to Mild mitral valve regurgitation. 3. s/p TAVR. Aortic valve Max velocity 2.25 m/sec. Max PG 20.20 mmHg. Mean PG 10.30 mmHg. Aortic valve area 1.80 cm2. no signs of perivalvular leak. 4. Normal appearance of the tricuspid valve. Estimated peak PA systolic pressure 18 mmHg. There is trace tricuspid regurgitation. 5. Normal pulmonic valve appearance. There is trace pulmonic regurgitation. 8: LHC with PCI to distal L Main with CHAMP 9.8: PM/[place] VVI placement Hx of Present Illness 81-year-old male with past medical history of stenting to his left main 2016, TAVR earlier this year and ischemic heart myopathy who presents with worsening shortness of breath since last night and cough. This morning, patient also with chest tightness and progressive worsening shortness of breath. Chest pain resolved after 3 nitroglycerin. Because of the above symptoms, he came for the emergency room for further evaluation and care. ECG with left bundle branch block and given his history, code STEMI was called. In discussion with patient , he denies any chest pain since this morning. Shortness of breath was improved with BiPAP. He states he is compliant with his medications. He denies any current dizziness, palpitations or abdominal pain. Hospital Course 81 yo M with pmhx CAD sp PCI, sp AVR admitted for SOB found to have acute on chronic systolic HF and NSETMI and AV 2-2 heart block. For NSTEMI pt had LHC 8.31, underwent PCI with CHAMP. Plavix changed to lasix. Post procedure pt noted to have bradycardia on tele. This persisted after bb was stopped. Tele showed not just bradycardia but high degree AV block. Pt underwent PM placement, post procedure course uncomplicated. Changes from admit meds: plavix changed to Brilinta, stopped bb and acei, lasix decreased from BID to daily Home Meds Active Scripts Furosemide* (Furosemide*) 40 Mg Tablet, 40 MG PO DAILY@06 for 30 Days, #30 TAB Prov:SANTOSH GENTILE MD 02/27/17 Ticagrelor* (Brilinta*) 90 Mg Tablet, 90 MG PO BID for 30 Days, #60 TAB Prov:SANTOSH GENTILE MD 02/27/17 Lisinopril* (Lisinopril*) 10 Mg Tablet, 10 MG PO DAILY, #60 TAB Prov:WALDO ALDANA MD 08/13/16 Carvedilol* (Coreg*) 3.125 Mg Tablet, 3.125 MG PO BID, #60 TAB Prov:WALDO ALDANA MD 08/13/16 Furosemide* (Furosemide*) 40 Mg Tablet, 40 MG PO BID DIURETICS, #90 TAB 1 Refill Prov:DEIRDRE BERNARD 05/30/16 Reported Medications Losartan Potassium* (Losartan Potassium*) 50 Mg Tablet, 50 MG PO DAILY, TAB 02/15/17 Insulin Glargine* (Lantus*) 100 Unit/Ml Soln, 20 UNIT SC QHS, #1 VIAL 02/15/17 Folic Acid* (Folic Acid*) 1 Mg Tablet, 1 MG PO DAILY, TAB 05/27/16 Simvastatin* (Zocor*) 40 Mg Tablet, 40 MG PO QHS, #30 TAB 05/27/16 Aspirin* (Aspirin* Chew) 81 Mg Tab.chew, 81 MG PO DAILY, TAB.CHEW 05/27/16 Metformin* (Glucophage*) 1,000 Mg Tablet, 1000 MG PO BID, #60 TAB 05/06/16 Allopurinol* (Allopurinol*) 100 Mg Tablet, 100 MG PO DAILY, TAB 05/06/16 Clopidogrel Bisulfate (Clopidogrel) 75 Mg Tablet, 75 MG PO DAILY, #30 TAB 05/06/16 Potassium Chloride* (Potassium Chloride*) 8 Meq Capsule.er, 8 MEQ PO DAILY, CAP 05/06/16 Levothyroxine Sodium* (Levothyroxine Sodium*) 88 Mcg Tablet, 88 MCG PO BEFORE BREAKFAST, #30 TAB 05/06/16 Follow-up Plan Dr Flores/Zaid within 2 weeks Primary Care Provider Not On Staff Doctor Time spent on discharge: > 30 minutes Pending Labs Laboratory Tests Test 02/26/17 12:18 02/26/17 17:59 02/26/17 20:59 02/27/17 02:16 Bedside Glucose 222mg/dL (70-220) 187mg/dL (70-220) 200mg/dL (70-220) 101mg/dL (70-220) Test 02/27/17 08:09 Bedside Glucose 119mg/dL (70-220) Copies To: CC: ELEANOR FLORES ELLEN MD Feb 27, 2017 10:29
--- NOTE | 2017-02-27 13:42 | CONS ---
Date/Time of Note Date/Time of Note DATE: 02/27/17 TIME: 13:41 Assessment/Plan Assessment/Plan Additional Assessment/Plan CAD s/p MA s/p PTCA Ischemic cardiomyopathy S/p AICD S/P TAVR CHF Heart Block 2:1 Diabetes Dyslipidemia Hypothyroidism Anemia Clinically and hemodynamically stable Continue Brilinta and ASA Continue Lasix Continue Hydralazine Continue Levothyroxine Continue Insulin Continue Lipitor Continue antibiotics Consultation Date/Type/Reason Admit Date/Time Feb 15, 2017 at 10:26 Initial Consult Date Type of Consultation: Pulmonary Referring Provider: GEORGINA HUTCHISON Exam/Review of Systems Vital Signs Vitals Vital Signs Date Time Temp Pulse Resp B/P Pulse Ox O2 Delivery O2 Flow Rate FiO2 02/27/17 11:27 98.2 94 18 146/74 98 02/26/17 04:00 Room Air 02/24/17 12:33 Intake and Output 02/26/17 02/26/17 02/27/17 15:00 23:00 07:00 Intake Total 1200 ml 400 ml Output Total 275 ml 750 ml Balance 925 ml -350 ml Exam Constitutional: alert, oriented Head: atraumatic, normocephalic Respiratory: diminished breath sounds Cardiovascular: regular rate and rhythm Gastrointestinal: nl liver, spleen, non-tender, soft Extremities: normal pulses Results Result Diagram: 02/26/17 0605 02/26/17 0605 Results 24 hrs Laboratory Tests Test 02/26/17 17:59 02/26/17 20:59 02/27/17 02:16 02/27/17 08:09 Bedside Glucose 187 200 101 119 Test 02/27/17 12:38 Bedside Glucose 117 Medications Medications Current Medications Ondansetron HCl (Zofran Inj) 4 mg Q6H PRN IV NAUSEA AND/OR VOMITING; Start at 11:30 Acetaminophen (Tylenol Tab) 650 mg Q6H PRN PO PAIN LEVEL 1-3 OR FEVER; Start at 11:30 Acetaminophen/ Hydrocodone Bitart ([place] (5/325)) 1 tab Q6H PRN PO MODERATE PAIN LEVEL 4-6; Start 02/15/17 at 11:30 Morphine Sulfate (morphine) 2 mg Q4H PRN IV SEVERE PAIN LEVEL 7-10 Last administered on 02/26/17t 07:20; Admin Dose 2 MG; Start 02/15/17 at 11:30 Docusate Sodium (Colace) 100 mg Q12H PRN PO CONSTIPATION; Start 02/15/17 at 11: 30 Magnesium Hydroxide (Milk Of Mag) 30 ml DAILY PRN PO CONSTIPATION; Start at 11:30 Sodium Biphosphate/ Sodium Phosphate (Fleet Enema) 133 ml DAILY PRN [place] CONSTIPATION; Start 02/15/17 at 11:30 Nitroglycerin (Nitroglycerin (Sl Tab) 0.4 Mg) 1 tab Q5M PRN SL ANGINA; Start at 11:30 Folic Acid (Folic Acid) 1 mg DAILY PO Last administered on 02/27/17 09:02; Admin Dose 1 MG; Start 02/16/17 at 09:00 Insulin Glargine (Lantus) 20 unit QHS SC Last administered on 02/26/17 21:08; Admin Dose 20 UNIT; Start 02/15/17 at 21:00 Losartan Potassium (Cozaar) 50 mg DAILY PO Last administered on 02/17/17 09:17 ; Admin Dose 50 MG; Start 02/15/17 at 13:00; Status Future Hold Atorvastatin Calcium (Lipitor) 20 mg DAILY@21 PO Last administered on 02/26/17 21:00; Admin Dose 20 MG; Start 02/15/17 at 21:00 Glucose (Glutose) 15 gm Q15M PRN PO DECREASED GLUCOSE; Start 02/15/17 at 12:00 Glucose (Glutose) 22.5 gm Q15M PRN PO DECREASED GLUCOSE; Start 02/15/17 at 12: 00 Dextrose (D50w Syringe) 25 ml Q15M PRN IV DECREASED GLUCOSE; Start 02/15/17 at 12:00 Dextrose (D50w Syringe) 50 ml Q15M PRN IV DECREASED GLUCOSE; Start 02/15/17 at 12:00 Glucagon (Glucagen) 1 mg Q15M PRN IM DECREASED GLUCOSE; Start 02/15/17 at 12:00 Glucose (Glutose) 15 gm Q15M PRN BUCCAL DECREASED GLUCOSE; Start 02/15/17 at 12 :00 Diagnostic Test (Pha) (Accu-Chek) 1 ea 02 XX Last administered on 02/27/17 02: 00; Admin Dose 1 EA; Start 02/16/17 at 02:00 Mupirocin (Bactroban) 1 applic BID TOP Last administered on 02/27/17 09:02; Admin Dose 1 APPLIC; Start 02/17/17 at 10:00 Aspirin (Halfprin) 81 mg DAILY PO Last administered on 02/27/17 09:02; Admin Dose 81 MG; Start 02/18/17 at 09:00 Acetaminophen (Tylenol Tab) 650 mg Q4H PRN PO NON-CARDIAC PAIN LEVEL 1-3; Start 02/17/17 at 12:30 Oxycodone/ Acetaminophen (Percocet (5/ 325)) 1 tab Q4H PRN PO REPORTED NON- CARDIAC PAIN 4-7; Start 02/17/17 at 12:30 Ticagrelor (Brilinta) 90 mg BID PO Last administered on 02/26/17 21:03; Admin Dose 90 MG; Start 02/19/17 at 21:00 Furosemide (Lasix) 40 mg DAILY@06 PO Last administered on 02/27/17 06:01; Admin Dose 40 MG; Start 02/20/17 at 06:00 Latanoprost (Xalatan) 1 drop HS BOTH EYES Last administered on 02/26/17 21:08; Admin Dose 1 DROP; Start 02/20/17 at 21:00 Hydralazine HCl (Apresoline) 50 mg Q8 PO Last administered on 02/27/17 13:24; Admin Dose 50 MG; Start 02/25/17 at 14:00 Morphine Sulfate 2 mg 2 mg Q2H PRN IV FOR NON CARDIAC PAIN (4-10); Start at 16:30 Cefazolin Sodium (Ancef 1 Gm/50 ml (Pmx)) 50 ml @ 100 mls/hr Q8 IVPB Last administered on 02/27/17 06:01; Admin Dose 100 MLS/HR; Start 02/25/17 at 22:00 Miscellaneous Information (* Miscellaneous Pharmacy Order) DC all Anilx, Hepari... ONCE XX ; Start 02/25/17 at 16:30 ROSA HAY M.D. Feb 27, 2017 13:42
--- NOTE | 2017-03-01 12:11 | CONS ---
DATE OF ADMISSION: 02/15/2017 DATE OF CONSULTATION: 02/25/2017 REASON FOR CONSULTATION: Evaluation for ICD implantation, history of cardiomyopathy. HISTORY OF PRESENT ILLNESS: The patient is an 82-year-old gentleman known from a prior admission. He has a history of hypertension, lymphedema, history of extensive coronary artery disease, history of longstanding cardiomyopathy with 25 percent, also a history of right TAVR valve replacement division. Had episodes of bradycardia prior and I saw him in the office for possible pacemaker, ICD placement. The patient declined the procedure at that time. Since that time he had recurrent episodes of bradycardia, and now patient is acceptable to have a pacemaker and ICD placed. He has fit the criteria for ICD guidelines based on trial of ischemic myopathy with no reversible disease. He also needs a pacemaker because of symptomatic bradycardia. As such, a pacemaker, defibrillator, ICD will be placed. I had a lengthy discussion with the patient and his family the risks, benefits, and alternatives of the procedure have been outlined. I explained the risks of pneumothorax, hemithorax, bleeding, infection, and they are agreeable to proceed. Will facilitate procedure shortly. PAST MEDICAL HISTORY: Hypertension, extensive coronary artery disease, no new reversible disease now, cardiomyopathy longstanding, EF of less than 130 percent, class 2 history of heart failure symptoms, dyslipidemia. ALLERGIES: NO KNOWN DRUG ALLERGIES. SOCIAL HISTORY: The patient used to smoke, does not drink, or use drugs. FAMILY HISTORY: Premature coronary artery disease. MEDICATIONS: Include Dilantin, Lasix 40 mg a day, aspirin 81 mg a day, oxycodone, folic acid, levothyroxine, insulin sliding scale, atorvastatin, glucose. REVIEW OF SYSTEMS: GENERAL: No fevers, no chills. Shortness of breath with motion. HEENT: Head is normocephalic. CARDIOVASCULAR: No chest pain reported now. RESPIRATORY: Shortness of breath, acute, recurring. GASTROINTESTINAL: No nausea or vomiting. NEUROLOGIC: No focal neurologic deficits. PSYCHIATRIC: No history of psychiatric illness. PHYSICAL EXAMINATION: VITAL SIGNS: Temperature 98.6, pulse 82, blood pressure 148/72. GENERAL: In no acute distress. Alert and oriented times 3. HEENT: Head normocephalic, atraumatic. Eyes, anicteric. NECK: Supple. JVD is 6-7 cm. CHEST: . HEART: Regular, soft 1/6 systolic murmur. PMI is not displaced. There is no S3 or S4. ABDOMEN: Distended. Bowel sounds are present. There is no hepatosplenomegaly. GENITOURINARY: Grossly intact. EXTREMITIES: No cyanosis, clubbing or edema. NEUROLOGIC: He is able to move his extremities. LABORATORY DATA: White blood cell count 4.9, hemoglobin 9.3, platelets 233. His INR is 1.0. Creatinine is 1.61. ASSESSMENT AND PLAN: 1. Cardiomyopathy. The patient with significant severe ischemic cardiomyopathy. Has indication for implantable cardioverter defibrillator. Risks, benefits, and alternatives for procedure have been outlined. The patient will have an ICD placement. Family agrees. 2. Brachycardia. The patient has significant bradycardia in the setting of cardiomyopathy likely related to TAVR placement. For now conservative care. It is expected the patient's ICD will have a pacer function to address that issue. 3. Aortic valve disease, status post thyroid. He appears to have tolerated the procedure well. 4. Acute renal failure. Creatinine is now elevated at 1.61. Needs to avoid nephrotoxic medications as tolerated. congestive heart failure. 5. Acute on chronic kidney disease. Continue gentle diuresis. 6. Coronary artery disease. The patient with good medical therapy. I would like to thank, Dr. Flores, for referring this patient for my evaluation. Dictated By: João Mar MD /sha/fanny /Document#: [id number]
--- NOTE | 2017-03-01 12:19 | PRO ---
DATE OF PROCEDURE: REASON FOR CONSULTATION: Ischemic cardiomyopathy, ejection fraction less than 30%, no reversible cardiac disease, class II heart failure symptom. There is no revascularizable disease on good medical therapy. Also, patient is bradycardic and requires ICD pacer function for bradycardia therapy. PROCEDURE PERFORMED: 1. Single chamber ICD implantation. 2. Fluoroscopic interpretation. 3. Upper extremity venogram to perform patency. No ICD high voltage output testing without VT/VF induction. DEVICE INFORMATION: 1. Implanted device: [employer] VR, [id number], serial number [id number], RVD to [employer] [id number] 65 cm, serial number [id number] put in the RV apex. 2. Acute threshold: The R wave was 8.9 mV, lead impedance 530 ohms, shock impedance 63 ohms, capture 0.75 volts, 0.5 msec. 3. Initial setting is VVI 60. First VT zone monitoring 150. VT-2 zone 180. AVF 214. DESCRIPTION OF PROCEDURE: Informed consent was obtained. The patient brought in Heart Station in fasting condition. Left side of the chest was prepped and draped in standard fashion. Then, 1% lidocaine was used for local analgesia. Anesthesiologist, supervised airway and sedation. Using #10 scalpel, a 3 cm incision was made over the left side of the chest. Using cautery and blunt dissection, the pocket was created. Upper extremity venogram was performed using modified Seldinger technique was cannulated and J wire passed easily. Using 8-Ethiopian sheath as a base, RV lead was inserted into the RV apex and patient had 8-Ethiopian sheath advanced. RV lead was put in RV apex and actively fixed. Once appropriate pacing and sensing location was ascertained, the patient had lead actively fixed. Some slack was left to size the lead and the sheath was pulled away. The lead was sutured to the muscle layer with 0-Ethibond suture. Steri-Strips were placed on top of incision. The patient had lead secured with multiple sutures in multiple layers. Then, the lead was attached to the generator. The pocket was irrigated with antibiotic solution. was placed inside the pocket. Then, the pocket was closed with multiple layers of 2-0 Vicryl sutures. Steri-Strips were placed on top of incision. Chest x-ray was made. The patient appeared to have tolerated the procedure well and he will have a chest x- ray , use antibiotics, and I will see him in the office. I would like to thank Dr. Flores and Dr. Katz for referring this patient for my evaluation. Dictated By: João Mar MD /[email or web address] /Document#: [id number]
--- NOTE | 2017-03-03 11:08 | RADRPT ---
Vent Rate: 103 bpm RR Interval: 0 msec IN Interval: 152 msec QRS Duration: 166 msec QT Interval: 410 msec QTC Interval: 537 msec P-R-T [place]: 58 - -32 - 119 degrees Sinus tachycardia Left axis deviation Left bundle branch block Abnormal ECG Electronically Signed By: Mamadou May [id number]
== END 2017-02-27 15:35 | disposition home health service (06) | DRG 224 ==
LOC: E/R 09:12 → ICU 10:26 → UNDOADMIN 11:14 → ICU 11:14 → TEL 02-20 18:39
PROVIDERS: ADMIT Internal Medicine; ATTEND Internal Medicine
PROC: 5A09357 Assistance with Respiratory Ventilation, Less than 24 Consecutive Hours, Continuous Positive Airway Pressure (ICD-10-PCS; 2017-02-15)
PROC: 4A023N7 Measurement of Cardiac Sampling and Pressure, Left Heart, Percutaneous Approach (ICD-10-PCS; 2017-02-17)
PROC: B211YZZ Fluoroscopy of Multiple Coronary Arteries using Other Contrast (ICD-10-PCS; 2017-02-17)
PROC: 027034Z Dilation of Coronary Artery, One Artery with Drug-eluting Intraluminal Device, Percutaneous Approach (ICD-10-PCS; principal; 2017-02-17 09:30)
PROC: 0JH608Z Insertion of Defibrillator Generator into Chest Subcutaneous Tissue and Fascia, Open Approach (ICD-10-PCS; 2017-02-25)
PROC: 02HK3KZ Insertion of Defibrillator Lead into Right Ventricle, Percutaneous Approach (ICD-10-PCS; 2017-02-25)
DX: T82.855A Stenosis of coronary artery stent, initial encounter (principal); I21.4 Non-ST elevation (NSTEMI) myocardial infarction; J96.01 Acute respiratory failure with hypoxia; I50.23 Acute on chronic systolic (congestive) heart failure; N17.9 Acute kidney failure, unspecified; E87.1 Hypo-osmolality and hyponatremia; I13.0 Hypertensive heart and chronic kidney disease with heart failure and stage 1 through stage 4 chronic kidney disease, or unspecified chronic kidney disease; E11.22 Type 2 diabetes mellitus with diabetic chronic kidney disease; I44.1 Atrioventricular block, second degree; I44.7 Left bundle-branch block, unspecified; I25.10 Atherosclerotic heart disease of native coronary artery without angina pectoris; I25.5 Ischemic cardiomyopathy; E03.9 Hypothyroidism, unspecified; E78.00 Pure hypercholesterolemia, unspecified; D64.9 Anemia, unspecified; E78.5 Hyperlipidemia, unspecified; N18.9 Chronic kidney disease, unspecified; Z95.2 Presence of prosthetic heart valve; Y84.8 Other medical procedures as the cause of abnormal reaction of the patient, or of later complication, without mention of misadventure at the time of the procedure; Y92.89 Other specified places as the place of occurrence of the external cause; Z79.4 Long term (current) use of insulin
CPT/HCPCS: 33249; 36415; 36600; 71010; 80048; 80053; 80061; 81001; 81003; 82043; 82550; 82553; 82803; 82962; 83036; 83690; 83735; 83880; 84100; 84155; 84300; 84439; 84443; 84484; 85025; 85610; 85730; 87081; 93005; 93306; 94660; 96374; 97116; 97161; C1725; C1769; C1786; C1887; C9600; J0690; J1644; J1815; J1940; J1956; J2250; J2270; J3010; J7030; Q9967

== ENCOUNTER 2017-03-07 07:59 | Inpatient (IN) | payer MEDICARE, OTHER ==
[~2017-03-07] VITALS: Ht 162.6 cm; Wt 67.5 kg
[2017-03-07] VITALS (9 sets, daily range): BP systolic 126–145; BP diastolic 72–78; PULSE 86–93; RESP 18–22; Ht 162.6 cm; Wt 67.5 kg
[~2017-03-07 07:59] MED LIST changes: -AMLO-147 PO; -CARV3.12 PO; -CLOP75TA27 PO; -LISI10TA2 PO; +LOSA50TA6 PO; -MELA5TAB4 PO; -POTA8CAP PO; +TICA90TA PO; -TRAM-40 PO
--- NOTE | 2017-03-07 08:03 | ERA ---
ER Documentation Chief Complaint Date/Time DATE: 03/07/17 TIME: 08:03 Chief Complaint HPI 82-year-old man with a history of severe congestive heart failure present shortness of breath difficulty breathing times few hours increased lower extremity swelling. He has had no fevers or chills, no antibiotic use, no complaints of chest pain, no vomiting or diarrhea. ROS All systems reviewed and are negative except as per history of present illness. Medications Home Meds Active Scripts Carvedilol* (Carvedilol*) 3.125 Mg Tablet, 3.125 MG PO BID for 30 Days, #60 TAB Prov:SANTOSH GENTILE MD 03/11/17 Furosemide* (Furosemide*) 40 Mg Tablet, 40 MG PO BID for 30 Days, #60 TAB Prov:SANTOSH GENTILE MD 03/11/17 Ticagrelor* (Brilinta*) 90 Mg Tablet, 90 MG PO BID for 30 Days, #60 TAB Prov:SANTOSH GENTILE MD 02/27/17 Reported Medications Losartan Potassium* (Losartan Potassium*) 50 Mg Tablet, 50 MG PO DAILY, TAB 02/15/17 Insulin Glargine* (Lantus*) 100 Unit/Ml Soln, 20 UNIT SC QHS, #1 VIAL 02/15/17 Folic Acid* (Folic Acid*) 1 Mg Tablet, 1 MG PO DAILY, TAB 05/27/16 Simvastatin* (Zocor*) 40 Mg Tablet, 40 MG PO QHS, #30 TAB 05/27/16 Aspirin* (Aspirin* Chew) 81 Mg Tab.chew, 81 MG PO DAILY, TAB.CHEW 05/27/16 Metformin* (Glucophage*) 1,000 Mg Tablet, 1000 MG PO BID, #60 TAB 05/06/16 Allopurinol* (Allopurinol*) 100 Mg Tablet, 100 MG PO DAILY, TAB 05/06/16 Levothyroxine Sodium* (Levothyroxine Sodium*) 88 Mcg Tablet, 88 MCG PO BEFORE BREAKFAST, #30 TAB 05/06/16 Allergies Allergies: Coded Allergies: No Known Allergies (Verified Allergy, Unknown, 03/07/17) PMhx/Soc CAD s/p LA s/p PTCA, Left bundle branch block, ischemic cardiomyopathy with LVEF of 30%, AICD placement, congestive heart failure, previous heart block, diabetes mellitus, dyslipidemia, hypothyroidism, hypertension, anemia History of Surgery: Yes (Appendicitis) Anesthesia Reaction: No Hx Neurological Disorder: No Hx Respiratory Disorders: No Hx Cardiac Disorders: Yes (NSTEMI) Hx Psychiatric Problems: No Hx Miscellaneous Medical Probl: Yes (hypothyroid, hypercholesterol, dm2) Hx Alcohol Use: Yes Hx Substance Use: No Hx Tobacco Use: No FmHx Family History: No diabetes Physical Exam Vitals per nurses record Physical Exam GENERAL: Well-developed, well-nourished, dyspneic HEENT: Moist mucous membranes, pink conjunctiva, no cervical spine tenderness or step-off deformities, no goiter, no jaundice or icterus, extraocular movements intact without pain. No submandibular induration, and no pharyngeal erythema NEURO: Alert and oriented 3, cranial nerves II through XII intact bilaterally, pupils equal round reactive to light, no focal deficits or facial asymmetry, sensation intact distally Strength 5/5 in upper and lower extremities bilaterally CARDIAC: Tachycardic and regular, no murmurs rubs or gallops LUNGS: Bilateral crackles, no wheezing or stridor ABDOMEN: Soft nontender, no guarding, no rigidity, no rebound, no psoas sign no obturator sign. Normoactive bowel sounds SKIN: Warm and dry to touch, no abrasions, contusions, or hematomas, no lacerations, no ecchymosis, no target lesions, and without ulcers EXTREMITIES: No clubbing cyanosis, 3+ pitting edema in the lower extremities bilaterally, calves are bilaterally symmetrical, no Homans sign, no popliteal cord sign. Distal pulses equal and bilateral PSYCH: Normal affect without agitation or irritability Results 24 hrs Laboratory Tests Test 03/07/17 08:10 White Blood Count 9.010^3/ul Red Blood Count 3.9010^6/ul Hemoglobin 10.1g/dl Hematocrit 32.6% Mean Corpuscular Volume 83.6fl Mean Corpuscular Hemoglobin 25.9pg Mean Corpuscular Hemoglobin Concent 31.0g/dl Red Cell Distribution Width 18.0% Platelet Count 50621^3/UL Mean Platelet Volume 10.9fl Neutrophils % 74.5% Lymphocytes % 18.9% Monocytes % 3.4% Eosinophils % 1.0% Basophils % 0.2% Nucleated Red Blood Cells % 0.0/100WBC Neutrophils # 6.710^3/ul Lymphocytes # 1.710^3/ul Monocytes # 0.310^3/ul Eosinophils # 0.110^3/ul Basophils # 0.010^3/ul Nucleated Red Blood Cells # 0.010^3/ul Sodium Level 144mmol/L Potassium Level 3.8mmol/L Chloride Level 112mmol/L Carbon Dioxide Level 19mmol/L Anion Gap 17 Blood Urea Nitrogen 25mg/dl Creatinine 1.34mg/dl Glucose Level 181mg/dl Calcium Level 9.5mg/dl Total Bilirubin 0.5mg/dl Direct Bilirubin 0.00mg/dl Indirect Bilirubin 0.5mg/dl Aspartate Amino Transf (AST/SGOT) 46IU/L Alanine Aminotransferase (ALT/SGPT) 58IU/L Alkaline Phosphatase 311IU/L Troponin I 0.066ng/ml B-Type Natriuretic Peptide 4440PG/ML Total Protein 8.3g/dl Albumin 4.3g/dl Globulin 4.00g/dl Albumin/Globulin Ratio 1.07 Lipase 567U/L Current Medications Medications (Trade) Dose Ordered Sig/Leanna Route PRN Reason Start Time Stop Time Status Last Admin Dose Admin Aspirin (Aspirin) 162 mg ONCE ONCE PO 03/07/17 08:30 03/07/17 08:31 DC 03/07/17 08:26 Furosemide (Lasix) 80 mg ONCE ONCE IV 03/07/17 08:30 03/07/17 08:31 DC 03/07/17 08:25 Nitroglycerin (Nitroglycerin (Sl Tab) 0.4 Mg) 1 tab ONCE ONCE SL 03/07/17 08:30 03/07/17 08:31 DC 03/07/17 08:26 Enalaprilat (Vasotec Iv) 1.25 mg ONCE ONCE IV 03/07/17 08:30 03/07/17 08:31 DC 03/07/17 08:25 Morphine Sulfate (morphine) 4 mg ONCE STAT IV 03/07/17 08:05 03/07/17 08:09 DC Ondansetron HCl (Zofran Inj) 4 mg ONCE STAT IV 03/07/17 08:05 03/07/17 08:09 DC 03/07/17 08:24 Procedures/MDM IV line was established patient placed on electro plater rhythm strip revealed a wide-complex tachycardia at 110 bpm. Patient was afebrile. EKG performed, read by me revealed a sinus tachycardia at 111 bpm, normal axis, left bundle branch block, no concerning ST elevations or depressions noted. I administered morphine 4 mg IV, Zofran 4 mg IV, aspirin 324 mg p.o. for cardioprotective measures, furosemide 60 mg IV 1, nitroglycerin sublingual, and enalapril 1.25 mg IV for hypertension and congestive heart failure I placed the patient on BiPAP therapy. CBC normal and electrolytes revealed acute kidney injury with a BUN/creatinine 28/1.6 liver function tests normal, troponin negative, BNP over 4000. Critical Care: Time: 60 minutes, this was time separate from other billable procedures. Treatments/Evaluations: Close monitoring and treatment of unstable vital signs, cardiorespiratory, and neurologic status, while maintaining tight balance of fluid, respiratory, and cardiac interventions. Patient will be admitted to telemetry setting for continued medical management cardiology consultation. Departure Diagnosis: Primary Impression: Acute respiratory failure Qualified Code: J96.01 - Acute respiratory failure with hypoxia and hypercapnia Additional Impressions: CHF (congestive heart failure) Qualified Code: I50.21 - Acute systolic congestive heart failure Hypertensive emergency Acute kidney injury Condition: OPAL Fox MD Mar 07, 2017 08:03
[2017-03-07] MEDS ORDERED: morphine 4 MG/ML VIAL IV STA (08:05)
[2017-03-07] MEDS ORDERED: ONDANSETRON 4 MG INJ IV STA (08:05)
[2017-03-07] MEDS ORDERED: FUROSEMIDE 40 MG INJ IV ONE (08:30)
[2017-03-07] MEDS ORDERED: NITROGLYCERIN (SL) 0.4 MG TAB SL ONE (08:30)
[2017-03-07] MEDS ORDERED: ASPIRIN 81 MG TAB PO ONE (08:30)
[2017-03-07] MEDS ORDERED: ENALAPRILAT 1.25 MG INJ IV ONE (08:30)
--- NOTE | 2017-03-07 08:35 | RADRPT ---
PROCEDURE: Chest x-ray CLINICAL INDICATION: Shortness of breath. Recent pacemaker placement TECHNIQUE: Chest single view COMPARISON: 02/25/2017 FINDINGS: As before there is a left chest single lead AICD. No pneumothorax is seen. Stable mild cardiomegaly and an sclerotic aortic calcification is seen. There are bilateral perihilar interstitial markings. This may represent edema or pneumonia. Trace right pleural effusion is seen. Left costophrenic angle sharp. Bony thorax is unremarkable. IMPRESSION: 1. Stable cardiomegaly and atherosclerotic aortic calcification. 2. New bilateral perihilar interstitial markings. This may represent edema or pneumonia. 3. Trace right pleural effusion. 4. AICD 5. No evidence of pneumothorax RPTAT: HH .Barron Forte MD, Date Time Electronically viewed and signed by .Barron Forte MD, on 03/07/2017 08:35 .W/
[2017-03-07 09:14] LABS: BASOPHILS % 0.2 % (0.0-2.0); EOSINOPHILS # 0.1 10^3/ul (0.0-0.5); HEMATOCRIT 32.6 % (42.0-52.0); HEMOGLOBIN 10.1 g/dl (14.0-18.0); LYMPHOCYTES # 1.7 10^3/ul (0.8-2.9); LYMPHOCYTES % 18.9 % (15.0-51.0); MEAN CORPUSCULAR HEMOGLOBIN 25.9 pg (29.0-33.0); MEAN CORPUSCULAR VOLUME 83.6 fl (82.0-101.0); MEAN PLATELET VOLUME 10.9 fl (7.4-10.4); MONOCYTE # 0.3 10^3/ul (0.3-0.9); MONOCYTES % 3.4 % (0.0-11.0); NEUTROPHIL # 6.7 10^3/ul (1.6-7.5); NEUTROPHILS % 74.5 % (39.0-77.0); PLATELET COUNT 202 10^3/UL (140-415)
[2017-03-07 09:32] LABS: ALBUMIN 4.3 g/dl (3.3-4.9); ALBUMIN/GLOBULIN RATIO 1.07; BILIRUBIN,INDIRECT 0.5 mg/dl (0-1.1); BILIRUBIN,TOTAL 0.5 mg/dl (0.2-1.3); CALCIUM 9.5 mg/dl (8.4-10.2); CREATININE 1.34 mg/dl (0.61-1.24); POTASSIUM 3.8 mmol/L (3.5-5.1); TOTAL PROTEIN 8.3 g/dl (6.1-8.1)
[2017-03-07 09:43] LABS: TROPONIN-I 0.066 ng/ml (0.00-0.12)
[2017-03-07] MEDS ORDERED: MAGNESIUM HYDROXIDE 30ML CUP PO PRN (11:30)
[2017-03-07] MEDS ORDERED: ACETAMINOPHEN 325 MG TAB PO PRN (11:30)
[2017-03-07] MEDS ORDERED: NACL 0.9% 3 ML SYG IV SCH (11:30)
[2017-03-07] MEDS ORDERED: ONDANSETRON 4 MG TAB PO PRN (11:30)
[2017-03-07] MEDS ORDERED: DOCUSATE SODIUM 100 MG CAP PO PRN (11:30)
[2017-03-07] MEDS ORDERED: DEXTROSE 50% 50 ML SYRINGE IV PRN ×2 (15:00)
[2017-03-07] MEDS ORDERED: GLUCOSE GEL 15 GRAM TUBE PO PRN ×2 (15:00)
[2017-03-07] MEDS ORDERED: GLUCOSE GEL 15 GRAM TUBE BUCCAL PRN (15:00)
[2017-03-07] MEDS ORDERED: GLUCAGON 1 MG INJ IM PRN (15:00)
[2017-03-07] MEDS: INSULIN ASPART [NOVOLOG] 3 ML PEN SC SCH ×2 (17:21→20:52)
--- NOTE | 2017-03-07 18:37 | HP ---
Date/Time of Note Date/Time of Note DATE: 03/07/17 TIME: 18:36 Assessment/Plan VTE Prophylaxis VTE Prophylaxis Intervention: SCD's Lines/Catheters IV Catheter Type (from Nrsg): Peripheral IV Assessment/Plan Assessment/Plan 82 yo M with chronic systolic HF, CAD, recent PM placement here for acute on chronic systolic HF likely from combination of increased salt intake yesterday and recent decrease in dieretic regimen PLAN high dose IV lasix, then transition to BID PO cont home meds HPI/ROS Admit Date/Time Admit Date/Time Mar 07, 2017 at 09:52 Hx of Present Illness CC SOB x 1 day HPI 82 yo M with pmhx chronic systolic HF (EF 25-30%) last admitted 2 weeks ago for chest pain found to have acute on chronic HF, NSTEMI and high grade heart block. Pt underwent LHC 8. with PCI placement, also had PM placement prior to discharge. Of note, there was concern pt was getting overdieresed and cardiology service changed his home lasix from BID to daily. Pt doing well much of last week, watching his salt intake. However yesterday went to a family BBQ and at a hot dog. Had orthopnea last night when trying to sleep. No chest pain. PMH/Family/Social Past Medical History CAD, CHF Past Surgical History Past Surgical Hx: angioplasty Social History lives in the community Smoking Status: Never smoker Exam/Review of Systems Vital Signs Vitals Vital Signs Date Time Temp Pulse Resp B/P Pulse Ox O2 Delivery O2 Flow Rate FiO2 03/07/17 16:17 98.0 69 18 126/76 96 03/07/17 11:11 Nasal Cannula 2.0 03/07/17 10:36 50 Exam Exam nad, pleasant EOMI MMM no mrg dec breath sounds bl bases abd soft no rashes no LE edema CXR with inc interstitial markings BNP elevated Labs Result Diagram: 03/07/17 0810 03/07/17 0810 Medications Medications Current Medications Allopurinol (Zyloprim) 100 mg DAILY PO ; Start 03/08/17 at 09:00 Aspirin (Aspirin) 81 mg DAILY PO ; Start 03/08/17 at 09:00 Folic Acid (Folic Acid) 1 mg DAILY PO ; Start 03/08/17 at 09:00 Insulin Glargine (Lantus) 20 unit QHS SC ; Start 03/07/17 at 21:00 Losartan Potassium (Cozaar) 50 mg DAILY PO ; Start 03/08/17 at 09:00 Ticagrelor (Brilinta) 90 mg BID PO ; Start 03/07/17 at 21:00 Atorvastatin Calcium (Lipitor) 20 mg DAILY@21 PO ; Start 03/07/17 at 21:00 Ondansetron HCl (Zofran Tab) 4 mg Q6H PRN PO NAUSEA AND/OR VOMITING; Start at 11:30 Acetaminophen (Tylenol Tab) 650 mg Q6H PRN PO PAIN LEVEL 1-3 OR FEVER; Start at 11:30 Docusate Sodium (Colace) 100 mg Q12H PRN PO CONSTIPATION; Start 03/07/17 at 11: 30 Magnesium Hydroxide (Milk Of Mag) 30 ml DAILY PRN PO CONSTIPATION; Start at 11:30 Enoxaparin Sodium (Lovenox) 40 mg DAILY SC ; Start 03/08/17 at 09:00 Miscellaneous Information 1 ea NOTE XX ; Start 03/07/17 at 15:00 Glucose (Glutose) 15 gm Q15M PRN PO DECREASED GLUCOSE; Start 03/07/17 at 15:00 Glucose (Glutose) 22.5 gm Q15M PRN PO DECREASED GLUCOSE; Start 03/07/17 at 15: 00 Dextrose (D50w Syringe) 25 ml Q15M PRN IV DECREASED GLUCOSE; Start 03/07/17 at 15:00 Dextrose (D50w Syringe) 50 ml Q15M PRN IV DECREASED GLUCOSE; Start 03/07/17 at 15:00 Glucagon (Glucagen) 1 mg Q15M PRN IM DECREASED GLUCOSE; Start 03/07/17 at 15:00 Glucose (Glutose) 15 gm Q15M PRN BUCCAL DECREASED GLUCOSE; Start 03/07/17 at 15 :00 Diagnostic Test (Pha) (Accu-Chek) 1 ea 02 XX ; Start 03/08/17 at 02:00 SANTOSH GENTILE MD Mar 07, 2017 18:37
[2017-03-07] MEDS: FUROSEMIDE 40 MG INJ IV SCH (20:53)
[2017-03-07] MEDS: TICAGRELOR 90 MG TABLET PO SCH (20:54)
[2017-03-07] MEDS: ATORVASTATIN 20 MG TAB PO SCH (20:54)
[2017-03-07] MEDS: INSULIN GLARGINE [LANtus] 3 ML PEN SC SCH (20:55)
[2017-03-08] VITALS (11 sets, daily range): BP systolic 132–144; BP diastolic 68–73; PULSE 75–90; RESP 17–19
[2017-03-08] MEDS: ACCU-CHEK XX SCH (02:14)
[2017-03-08] MEDS: FUROSEMIDE 40 MG INJ IV SCH (05:57)
[2017-03-08] MEDS: LEVOTHYROXINE 88 MCG TAB PO SCH (07:45)
[2017-03-08] MEDS: INSULIN ASPART [NOVOLOG] 3 ML PEN SC SCH ×4 (07:46→21:00)
[2017-03-08] MEDS: TICAGRELOR 90 MG TABLET PO SCH ×2 (07:46→21:18)
[2017-03-08 08:11] LABS: EOSINOPHILS # 0.1 10^3/ul (0.0-0.5); EOSINOPHILS % 2.5 % (0.0-7.0); HEMATOCRIT 27.2 % (42.0-52.0); HEMOGLOBIN 8.5 g/dl (14.0-18.0); LYMPHOCYTES # 1.4 10^3/ul (0.8-2.9); LYMPHOCYTES % 28.4 % (15.0-51.0); MEAN CORPUSCULAR HEMOGLOBIN 26.2 pg (29.0-33.0); MEAN CORPUSCULAR HGB CONC 31.3 g/dl (32.0-37.0); MEAN PLATELET VOLUME 10.9 fl (7.4-10.4); MONOCYTE # 0.4 10^3/ul (0.3-0.9); MONOCYTES % 8.4 % (0.0-11.0); NEUTROPHIL # 2.9 10^3/ul (1.6-7.5); NEUTROPHILS % 59.5 % (39.0-77.0); PLATELET COUNT 176 10^3/UL (140-415); RED BLOOD COUNT 3.24 10^6/ul (4.70-6.10); RED CELL DISTRIBUTION WIDTH 17.9 % (11.5-14.5); WHITE BLOOD COUNT 4.9 10^3/ul (4.8-10.8)
[2017-03-08] MEDS: ALLOPURINOL 100 MG TAB PO SCH (08:37)
[2017-03-08] MEDS: ASPIRIN 81 MG TAB PO SCH (08:37)
[2017-03-08] MEDS: LOSARTAN 50 MG TAB PO SCH (08:38)
[2017-03-08] MEDS: FOLIC ACID 1 MG TAB PO SCH (08:38)
[2017-03-08 08:49] LABS: ALBUMIN 3.8 g/dl (3.3-4.9); ALBUMIN/GLOBULIN RATIO 1.05; BILIRUBIN,INDIRECT 0.6 mg/dl (0-1.1); BILIRUBIN,TOTAL 0.6 mg/dl (0.2-1.3); CALCIUM 8.8 mg/dl (8.4-10.2); CREATININE 1.62 mg/dl (0.61-1.24); POTASSIUM 3.9 mmol/L (3.5-5.1); TOTAL PROTEIN 7.4 g/dl (6.1-8.1)
[2017-03-08] MEDS ORDERED: ENOXAPARIN 40 MG/0.4 ML SYG SC SCH (09:00)
--- NOTE | 2017-03-08 14:26 | PN ---
Date/Time of Note Date/Time of Note DATE: 03/08/17 TIME: 14:24 Assessment/Plan VTE Prophylaxis VTE Prophylaxis Intervention: SCD's Lines/Catheters IV Catheter Type (from Nrsg): Peripheral IV Assessment/Plan Assessment/Plan 82 yo M with chronic systolic HF, CAD, recent PM placement here for acute on chronic systolic HF likely from recent decrease in dieretic regimen. Cr slightly higher this AM PLAN de escalate IV lasix to PO (1/2 of IV dose) cont home meds likely dc in AM Subjective 24 Hr Interval Summary Free Text/Dictation Feeling a little better but not yet back to baseline Exam/Review of Systems Vital Signs Vitals Vital Signs Date Time Temp Pulse Resp B/P Pulse Ox O2 Delivery O2 Flow Rate FiO2 03/08/17 12:11 90 03/08/17 11:46 98.6 18 143/68 96 03/08/17 08:00 Nasal Cannula 2.0 03/07/17 10:36 50 Intake and Output 03/07/17 03/07/17 03/08/17 15:00 23:00 07:00 Intake Total 240 ml 300 ml Output Total 600 ml 800 ml Balance -360 ml -500 ml Exam nad no mrg still dec breath sounds bl bases abd soft no rashes I/O net 1L neg Results Result Diagram: 03/08/17 0710 03/08/17 0710 Results 24 hrs Laboratory Tests Test 03/07/17 17:07 03/07/17 20:52 03/08/17 07:10 03/08/17 07:25 Bedside Glucose 141 133 147 White Blood Count 4.9 # Red Blood Count 3.24 L Hemoglobin 8.5 L Hematocrit 27.2 L Mean Corpuscular Volume 84.0 Mean Corpuscular Hemoglobin 26.2 L Mean Corpuscular Hemoglobin Concent 31.3 L Red Cell Distribution Width 17.9 H Platelet Count 176 Mean Platelet Volume 10.9 H Neutrophils % 59.5 Lymphocytes % 28.4 Monocytes % 8.4 Eosinophils % 2.5 Basophils % 0.0 Nucleated Red Blood Cells % 0.0 Neutrophils # 2.9 Lymphocytes # 1.4 Monocytes # 0.4 Eosinophils # 0.1 Basophils # 0.0 Nucleated Red Blood Cells # 0.0 Sodium Level 143 Potassium Level 3.9 Chloride Level 105 Carbon Dioxide Level 26 Anion Gap 16 Blood Urea Nitrogen 28 H Creatinine 1.62 H Glucose Level 134 # Calcium Level 8.8 Total Bilirubin 0.6 Direct Bilirubin 0.00 Indirect Bilirubin 0.6 Aspartate Amino Transf (AST/SGOT) 43 Alanine Aminotransferase (ALT/SGPT) 48 Alkaline Phosphatase 231 H Total Protein 7.4 Albumin 3.8 Globulin 3.60 H Albumin/Globulin Ratio 1.05 Test 03/08/17 11:47 Bedside Glucose 118 Medications Medications Current Medications Allopurinol (Zyloprim) 100 mg DAILY PO Last administered on 03/08/17 08:37; Admin Dose 100 MG; Start 03/08/17 at 09:00 Aspirin (Aspirin) 81 mg DAILY PO Last administered on 03/08/17 08:37; Admin Dose 81 MG; Start 03/08/17 at 09:00 Folic Acid (Folic Acid) 1 mg DAILY PO Last administered on 03/08/17 08:38; Admin Dose 1 MG; Start 03/08/17 at 09:00 Insulin Glargine (Lantus) 20 unit QHS SC ; Start 03/07/17 at 21:00 Losartan Potassium (Cozaar) 50 mg DAILY PO Last administered on 03/08/17 08:38 ; Admin Dose 50 MG; Start 03/08/17 at 09:00 Ticagrelor (Brilinta) 90 mg BID PO Last administered on 03/08/17 07:46; Admin Dose 90 MG; Start 03/07/17 at 21:00 Atorvastatin Calcium (Lipitor) 20 mg DAILY@21 PO Last administered on 20:54; Admin Dose 20 MG; Start 03/07/17 at 21:00 Ondansetron HCl (Zofran Tab) 4 mg Q6H PRN PO NAUSEA AND/OR VOMITING; Start at 11:30 Acetaminophen (Tylenol Tab) 650 mg Q6H PRN PO PAIN LEVEL 1-3 OR FEVER; Start at 11:30 Docusate Sodium (Colace) 100 mg Q12H PRN PO CONSTIPATION; Start 03/07/17 at 11: 30 Magnesium Hydroxide (Milk Of Mag) 30 ml DAILY PRN PO CONSTIPATION; Start at 11:30 Miscellaneous Information 1 ea NOTE XX ; Start 03/07/17 at 15:00 Glucose (Glutose) 15 gm Q15M PRN PO DECREASED GLUCOSE; Start 03/07/17 at 15:00 Glucose (Glutose) 22.5 gm Q15M PRN PO DECREASED GLUCOSE; Start 03/07/17 at 15: 00 Dextrose (D50w Syringe) 25 ml Q15M PRN IV DECREASED GLUCOSE; Start 03/07/17 at 15:00 Dextrose (D50w Syringe) 50 ml Q15M PRN IV DECREASED GLUCOSE; Start 03/07/17 at 15:00 Glucagon (Glucagen) 1 mg Q15M PRN IM DECREASED GLUCOSE; Start 03/07/17 at 15:00 Glucose (Glutose) 15 gm Q15M PRN BUCCAL DECREASED GLUCOSE; Start 03/07/17 at 15 :00 Diagnostic Test (Pha) (Accu-Chek) 1 ea 02 XX Last administered on 03/08/17t 02: 14; Admin Dose 1 EA; Start 03/08/17 at 02:00 SANTOSH GENTILE MD Mar 08, 2017 14:26
[2017-03-08] MEDS: FUROSEMIDE 40 MG TAB PO SCH (17:10)
[2017-03-08] MEDS: ATORVASTATIN 20 MG TAB PO SCH (21:18)
[2017-03-08] MEDS: LATANOPROST 0.005% 2.5 ML OPH BOTH EYES SCH (21:19)
[2017-03-08] MEDS: INSULIN GLARGINE [LANtus] 3 ML PEN SC SCH (21:21)
[2017-03-09] VITALS (12 sets, daily range): BP systolic 111–148; BP diastolic 60–82; PULSE 71–88; RESP 16–18
[2017-03-09] MEDS: ACCU-CHEK XX SCH (02:00)
[2017-03-09] MEDS: FUROSEMIDE 40 MG TAB PO SCH ×2 (06:00→17:26)
[2017-03-09] MEDS: LEVOTHYROXINE 88 MCG TAB PO SCH (06:03)
[2017-03-09 07:59] LABS: CALCIUM 8.9 mg/dl (8.4-10.2); CREATININE 1.59 mg/dl (0.61-1.24); POTASSIUM 3.8 mmol/L (3.5-5.1)
[2017-03-09] MEDS: INSULIN ASPART [NOVOLOG] 3 ML PEN SC SCH ×4 (08:00→20:40)
[2017-03-09] MEDS: ASPIRIN 81 MG TAB PO SCH (08:20)
[2017-03-09] MEDS: TICAGRELOR 90 MG TABLET PO SCH ×2 (08:26→20:35)
[2017-03-09] MEDS: FOLIC ACID 1 MG TAB PO SCH (08:27)
[2017-03-09] MEDS: LOSARTAN 50 MG TAB PO SCH (08:27)
[2017-03-09] MEDS: ALLOPURINOL 100 MG TAB PO SCH (08:28)
--- NOTE | 2017-03-09 14:57 | PN ---
Date/Time of Note Date/Time of Note DATE: 03/09/17 TIME: 14:56 Assessment/Plan VTE Prophylaxis VTE Prophylaxis Intervention: SCD's Lines/Catheters IV Catheter Type (from Nrs): Saline Lock Urinary Cath still in place: No Assessment/Plan Assessment/Plan 82 yo M with chronic systolic HF, CAD, recent PM placement here for acute on chronic systolic HF likely from recent decrease in dieretic regimen. PLAN cont PO BID lasix watch Hgb closely cont home meds likely dc in AM Subjective 24 Hr Interval Summary Free Text/Dictation Pt requesting 1 more day in the hospital Exam/Review of Systems Vital Signs Vitals Vital Signs Date Time Temp Pulse Resp B/P Pulse Ox O2 Delivery O2 Flow Rate FiO2 03/09/17 12:07 84 03/09/17 11:35 98.3 18 139/68 99 03/09/17 10:00 Nasal Cannula 2.0 03/07/17 10:36 50 Intake and Output 03/08/17 03/08/17 03/09/17 15:00 23:00 07:00 Intake Total 800 ml 400 ml Balance 800 ml 400 ml Exam nad no mrg breath sounds improving abd soft no rashes hgb a little low, cr noted Results Result Diagram: 03/08/17 0710 03/09/17 0718 Results 24 hrs Laboratory Tests Test 03/08/17 17:05 03/08/17 21:17 03/09/17 07:18 03/09/17 08:18 Bedside Glucose 150 129 122 Sodium Level 142 Potassium Level 3.8 Chloride Level 105 Carbon Dioxide Level 29 Anion Gap 12 Blood Urea Nitrogen 32 H Creatinine 1.59 H Glucose Level 115 Calcium Level 8.9 Test 03/09/17 11:40 Bedside Glucose 207 Medications Medications Current Medications Allopurinol (Zyloprim) 100 mg DAILY PO Last administered on 03/09/17 08:28; Admin Dose 100 MG; Start 03/08/17 at 09:00 Aspirin (Aspirin) 81 mg DAILY PO Last administered on 03/09/17 08:20; Admin Dose 81 MG; Start 03/08/17 at 09:00 Folic Acid (Folic Acid) 1 mg DAILY PO Last administered on 03/09/17 08:27; Admin Dose 1 MG; Start 03/08/17 at 09:00 Insulin Glargine (Lantus) 20 unit QHS SC Last administered on 03/08/17 21:21; Admin Dose 20 UNIT; Start 03/07/17 at 21:00 Losartan Potassium (Cozaar) 50 mg DAILY PO Last administered on 03/09/17 08:27 ; Admin Dose 50 MG; Start 03/08/17 at 09:00 Ticagrelor (Brilinta) 90 mg BID PO Last administered on 03/09/17 08:26; Admin Dose 90 MG; Start 03/07/17 at 21:00 Atorvastatin Calcium (Lipitor) 20 mg DAILY@21 PO Last administered on 21:18; Admin Dose 20 MG; Start 03/07/17 at 21:00 Ondansetron HCl (Zofran Tab) 4 mg Q6H PRN PO NAUSEA AND/OR VOMITING; Start at 11:30 Acetaminophen (Tylenol Tab) 650 mg Q6H PRN PO PAIN LEVEL 1-3 OR FEVER; Start at 11:30 Docusate Sodium (Colace) 100 mg Q12H PRN PO CONSTIPATION; Start 03/07/17 at 11: 30 Magnesium Hydroxide (Milk Of Mag) 30 ml DAILY PRN PO CONSTIPATION; Start at 11:30 Miscellaneous Information 1 ea NOTE XX ; Start 03/07/17 at 15:00 Glucose (Glutose) 15 gm Q15M PRN PO DECREASED GLUCOSE; Start 03/07/17 at 15:00 Glucose (Glutose) 22.5 gm Q15M PRN PO DECREASED GLUCOSE; Start 03/07/17 at 15: 00 Dextrose (D50w Syringe) 25 ml Q15M PRN IV DECREASED GLUCOSE; Start 03/07/17 at 15:00 Dextrose (D50w Syringe) 50 ml Q15M PRN IV DECREASED GLUCOSE; Start 03/07/17 at 15:00 Glucagon (Glucagen) 1 mg Q15M PRN IM DECREASED GLUCOSE; Start 03/07/17 at 15:00 Glucose (Glutose) 15 gm Q15M PRN BUCCAL DECREASED GLUCOSE; Start 03/07/17 at 15 :00 Diagnostic Test (Pha) (Accu-Chek) 1 ea 02 XX Last administered on 03/08/17 02: 14; Admin Dose 1 EA; Start 03/08/17 at 02:00 Latanoprost (Xalatan) 1 drop HS BOTH EYES Last administered on 03/08/17t 21:19 ; Admin Dose 1 DROP; Start 03/08/17 at 21:00 SANTOSH GENTILE MD Mar 09, 2017 14:57
--- NOTE | 2017-03-09 18:47 | CONS ---
DATE OF ADMISSION: 03/07/2017 DATE OF CONSULTATION: 03/09/2017 REASON FOR CONSULTATION: Congestive heart failure exacerbation. REQUESTING PHYSICIAN: Mela Lanza MD. HISTORY OF PRESENT ILLNESS: Mr. 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 He states he went home and felt well and then returned on June 06 with complaints of shortness of breath and was found to be in congestive heart failure exacerbation. Of note, the patient had Lasix decreased from 40 twice a day to 40 once a day. This was due to concern for worsening renal failure. Since arrival, the patient has been placed on Lasix b.i.d. with improvement in overall respiratory status. The patient denies chest pain and has had 1 troponin. No other troponins drawn. PAST MEDICAL HISTORY: As above in HPI. MEDICATION IN-HOSPITAL: 1. Lasix 40 mg p.o. b.i.d. 2. Aspirin 81 mg daily. 3. Losartan 50 mg daily. 4. Synthroid. 5. Accu-Chek. 6. Lantus 20 mg q.h.s. 7. Brilinta 90 mg p.o. b.i.d. 8. Lipitor 20 mg q.h.s. 9. Not currently on a beta bijal. ALLERGIES: NO KNOWN DRUG ALLERGIES. SOCIAL HISTORY: No tobacco, EtOH, or illicit drug use. FAMILY HISTORY: Negative for sudden cardiac or early CAD. REVIEW OF SYSTEMS: As above in HPI. CONSTITUTIONAL: No fevers, chills. RESPIRATORY: Improving shortness of breath. HEART: RRR. GASTROINTESTINAL: No vomiting. GENITOURINARY: No hematuria. MUSCULOSKELETAL: Degenerative joint disease. PSYCH: The patient has depression. NEURO: No documented . PHYSICAL EXAMINATION: VITAL SIGNS: Temperature 98.6, blood pressure 139/82, pulse 83, respiratory rate 16, sating 98 percent. GENERAL: The patient is alert, awake, in no acute distress. NECK: JVP of approximately 9 cm water. CHEST: Mildly decreased breath sounds at the bases bilaterally. HEART: Regular rate and rhythm. Normal S1, S2. Laterally displaced PMI. ABDOMEN: Positive bowel sounds. Soft. EXTREMITIES: No pitting edema. One plus pulses in bilateral posterior tibia. LABS: As above in HPI with most recently from today, sodium 143, potassium 3.8, creatinine 1.59, BUN of 32, white count 4.9, hemoglobin 8.5, and platelet count of 176. IMAGING STUDIES: As above in HPI. No further images reviewed this time. ECG from revealed sinus tach with a left bundle branch block, secondary repolarization abnormalities. IMPRESSION: 1. Congestive heart failure exacerbation, systolic, acute on chronic. 2. Cardiomyopathy, decreased left ventricular ejection fraction, last approximately 25-30 percent prior to stenting of the patient's left main. 3. Status post percutaneous transluminal coronary angioplasty and stent placement, most recently to left main in May 2017, drug-eluting stent. 4. History of transcatheter aortic valve replacement. 5. Renal failure, chronic. 6. Hypertension, under reasonable control. 7. Hypothyroidism. 8. Dyslipidemia. 9. Diabetes mellitus. RECOMMENDATIONS: 1. At this time, we will maintain patient on telemetry monitoring to follow rhythm and rates closely. 2. We will complete the patient's rule out for infarction. The patient has not had any recurrent ischemic syndrome leading to recurrent congestive heart failure exacerbation. 3. Continue the patient's current Lasix b.i.d. at this time and continue patient's losartan afterload reduction with likely need to increase to improve afterload reduction and resume patient on baseline low-dose carvedilol now that the patient has a pacemaker ICD. 4. Continue the patient's current statin therapy. 5. Follow patient's creatinine and when stabilized, we will also consider initiation of Aldactone for neural hormonal modulation. Thank you for allowing to take part in the care of this patient. I will continue to follow very closely with you. Dictated By: Baron Flores MD /sha/iman /Document#: [id number] CC: Mela Lanza MD;*[facility]*
[2017-03-09] MEDS: LATANOPROST 0.005% 2.5 ML OPH BOTH EYES SCH (20:33)
[2017-03-09] MEDS: ATORVASTATIN 20 MG TAB PO SCH (20:34)
[2017-03-09] MEDS: INSULIN GLARGINE [LANtus] 3 ML PEN SC SCH (20:44)
[2017-03-10] VITALS (10 sets, daily range): BP systolic 119–147; BP diastolic 57–79; PULSE 74–88; RESP 18
[2017-03-10] MEDS: ACCU-CHEK XX SCH (02:00)
[2017-03-10 02:19] LABS: TROPONIN-I 0.06 ng/ml (0.00-0.12)
[2017-03-10 02:25] LABS: CK-MB 1.02 ng/ml (0.0-2.4)
[2017-03-10] MEDS: LEVOTHYROXINE 88 MCG TAB PO SCH (06:06)
[2017-03-10] MEDS: FUROSEMIDE 40 MG TAB PO SCH ×2 (06:07→17:05)
[2017-03-10 07:51] LABS: BASOPHILS % 0.2 % (0.0-2.0); EOSINOPHILS # 0.2 10^3/ul (0.0-0.5); EOSINOPHILS % 3.5 % (0.0-7.0); HEMATOCRIT 28.4 % (42.0-52.0); HEMOGLOBIN 9.3 g/dl (14.0-18.0); LYMPHOCYTES # 1.2 10^3/ul (0.8-2.9); LYMPHOCYTES % 24.2 % (15.0-51.0); MEAN CORPUSCULAR HEMOGLOBIN 26.8 pg (29.0-33.0); MEAN CORPUSCULAR HGB CONC 32.7 g/dl (32.0-37.0); MEAN CORPUSCULAR VOLUME 81.8 fl (82.0-101.0); MEAN PLATELET VOLUME 10.3 fl (7.4-10.4); MONOCYTE # 0.4 10^3/ul (0.3-0.9); MONOCYTES % 7.5 % (0.0-11.0); NEUTROPHIL # 3.1 10^3/ul (1.6-7.5); NEUTROPHILS % 62.6 % (39.0-77.0); PLATELET COUNT 180 10^3/UL (140-415); RED BLOOD COUNT 3.47 10^6/ul (4.70-6.10); RED CELL DISTRIBUTION WIDTH 17.6 % (11.5-14.5); WHITE BLOOD COUNT 4.9 10^3/ul (4.8-10.8)
[2017-03-10] MEDS: INSULIN ASPART [NOVOLOG] 3 ML PEN SC SCH ×4 (08:00→20:23)
[2017-03-10 08:13] LABS: CALCIUM 9.1 mg/dl (8.4-10.2); CREATININE 1.36 mg/dl (0.61-1.24); POTASSIUM 3.1 mmol/L (3.5-5.1)
[2017-03-10] MEDS: TICAGRELOR 90 MG TABLET PO SCH ×2 (08:17→20:26)
[2017-03-10] MEDS: ASPIRIN 81 MG TAB PO SCH (08:17)
[2017-03-10] MEDS: FOLIC ACID 1 MG TAB PO SCH (08:18)
[2017-03-10] MEDS: ALLOPURINOL 100 MG TAB PO SCH (08:18)
[2017-03-10] MEDS: LOSARTAN 50 MG TAB PO SCH (08:18)
[2017-03-10 09:25] LABS: TROPONIN-I 0.045 ng/ml (0.00-0.12)
[2017-03-10 09:27] LABS: CK-MB 0.92 ng/ml (0.0-2.4)
[2017-03-10] MEDS ORDERED: POTASSIUM CHLORIDE (SR) 20 MEQ TAB PO STA (16:47)
--- NOTE | 2017-03-10 16:49 | PN ---
Date/Time of Note Date/Time of Note DATE: 03/10/17 TIME: 16:48 Assessment/Plan VTE Prophylaxis VTE Prophylaxis Intervention: SCD's Lines/Catheters IV Catheter Type (from Nrs): Saline Lock Urinary Cath still in place: No Assessment/Plan Assessment/Plan 82 yo M with chronic systolic HF, CAD, recent PM placement here for acute on chronic systolic HF likely from recent decrease in dieretic regimen. PLAN cont PO BID lasix cont home meds likely dc in AM Subjective 24 Hr Interval Summary Free Text/Dictation Pt doesn't feel ready to go home just yet Exam/Review of Systems Vital Signs Vitals Vital Signs Date Time Temp Pulse Resp B/P Pulse Ox O2 Delivery O2 Flow Rate FiO2 03/10/17 16:16 75 03/10/17 15:46 98.6 18 138/78 99 03/10/17 04:15 Room Air 03/10/17 00:30 2.0 03/07/17 10:36 50 Intake and Output 03/09/17 03/09/17 03/10/17 15:00 23:00 07:00 Intake Total 700 ml 500 ml Output Total 780 ml Balance 700 ml -280 ml Exam nad no mrg breath sounds improving abd soft no rashes cr improved Results Result Diagram: 03/10/17 0703/10/17 0705 Results 24 hrs Laboratory Tests Test 03/09/17 17:24 03/09/17 20:39 03/10/17 01:05 03/10/17 06:00 Bedside Glucose 143 148 Creatine Kinase 37 34 Creatine Kinase Index 2.8 2.7 Creatinine Kinase MB (Mass) 1.02 0.92 Troponin I 0.060 0.045 Test 03/10/17 07:05 03/10/17 07:57 03/10/17 11:38 White Blood Count 4.9 Red Blood Count 3.47 L Hemoglobin 9.3 L Hematocrit 28.4 L Mean Corpuscular Volume 81.8 L Mean Corpuscular Hemoglobin 26.8 L Mean Corpuscular Hemoglobin Concent 32.7 Red Cell Distribution Width 17.6 H Platelet Count 180 Mean Platelet Volume 10.3 Neutrophils % 62.6 Lymphocytes % 24.2 Monocytes % 7.5 Eosinophils % 3.5 Basophils % 0.2 Nucleated Red Blood Cells % 0.0 Neutrophils # 3.1 Lymphocytes # 1.2 Monocytes # 0.4 Eosinophils # 0.2 Basophils # 0.0 Nucleated Red Blood Cells # 0.0 Sodium Level 141 Potassium Level 3.1 L Chloride Level 104 Carbon Dioxide Level 28 Anion Gap 12 Blood Urea Nitrogen 31 H Creatinine 1.36 H Glucose Level 67 #L Calcium Level 9.1 Bedside Glucose 77 155 Medications Medications Current Medications Allopurinol (Zyloprim) 100 mg DAILY PO Last administered on 03/10/17 08:18; Admin Dose 100 MG; Start 03/08/17 at 09:00 Aspirin (Aspirin) 81 mg DAILY PO Last administered on 03/10/17 08:17; Admin Dose 81 MG; Start 03/08/17 at 09:00 Folic Acid (Folic Acid) 1 mg DAILY PO Last administered on 03/10/17 08:18; Admin Dose 1 MG; Start 03/08/17 at 09:00 Insulin Glargine (Lantus) 20 unit QHS SC Last administered on 03/09/17 20:44; Admin Dose 20 UNIT; Start 03/07/17 at 21:00 Losartan Potassium (Cozaar) 50 mg DAILY PO Last administered on 03/10/17 08:18 ; Admin Dose 50 MG; Start 03/08/17 at 09:00 Ticagrelor (Brilinta) 90 mg BID PO Last administered on 03/10/17 08:17; Admin Dose 90 MG; Start 03/07/17 at 21:00 Atorvastatin Calcium (Lipitor) 20 mg DAILY@21 PO Last administered on 20:34; Admin Dose 20 MG; Start 03/07/17 at 21:00 Ondansetron HCl (Zofran Tab) 4 mg Q6H PRN PO NAUSEA AND/OR VOMITING; Start at 11:30 Acetaminophen (Tylenol Tab) 650 mg Q6H PRN PO PAIN LEVEL 1-3 OR FEVER; Start at 11:30 Docusate Sodium (Colace) 100 mg Q12H PRN PO CONSTIPATION; Start 03/07/17 at 11: 30 Magnesium Hydroxide (Milk Of Mag) 30 ml DAILY PRN PO CONSTIPATION; Start at 11:30 Miscellaneous Information 1 ea NOTE XX ; Start 03/07/17 at 15:00 Glucose (Glutose) 15 gm Q15M PRN PO DECREASED GLUCOSE; Start 03/07/17 at 15:00 Glucose (Glutose) 22.5 gm Q15M PRN PO DECREASED GLUCOSE; Start 03/07/17 at 15: 00 Dextrose (D50w Syringe) 25 ml Q15M PRN IV DECREASED GLUCOSE; Start 03/07/17 at 15:00 Dextrose (D50w Syringe) 50 ml Q15M PRN IV DECREASED GLUCOSE; Start 03/07/17 at 15:00 Glucagon (Glucagen) 1 mg Q15M PRN IM DECREASED GLUCOSE; Start 03/07/17 at 15:00 Glucose (Glutose) 15 gm Q15M PRN BUCCAL DECREASED GLUCOSE; Start 03/07/17 at 15 :00 Diagnostic Test (Pha) (Accu-Chek) 1 ea 02 XX Last administered on 03/08/17 02: 14; Admin Dose 1 EA; Start 03/08/17 at 02:00 Latanoprost (Xalatan) 1 drop HS BOTH EYES Last administered on 03/09/17 20:33 ; Admin Dose 1 DROP; Start 03/08/17 at 21:00 Carvedilol (Coreg) 3.125 mg BID PO Last administered on 03/10/17 08:18; Admin Dose 3.125 MG; Start 03/09/17 at 21:00 SANTOSH GENTILE MD Mar 10, 2017 16:49
[2017-03-10] MEDS ORDERED: FUROSEMIDE 20 MG INJ IV ONE (19:30)
[2017-03-10] MEDS: LATANOPROST 0.005% 2.5 ML OPH BOTH EYES SCH (20:24)
[2017-03-10] MEDS: ATORVASTATIN 20 MG TAB PO SCH (20:25)
[2017-03-10] MEDS: INSULIN GLARGINE [LANtus] 3 ML PEN SC SCH (20:26)
[2017-03-11 00:36] VITALS: BP 152/77; RESP 18
[2017-03-11] MEDS: ACCU-CHEK XX SCH (02:34)
[2017-03-11 05:30] LABS: CALCIUM 8.9 mg/dl (8.4-10.2); CREATININE 1.6 mg/dl (0.61-1.24); MAGNESIUM 2.3 mg/dl (1.7-2.5); POTASSIUM 3.6 mmol/L (3.5-5.1)
[2017-03-11] MEDS: FUROSEMIDE 40 MG TAB PO SCH (06:04)
[2017-03-11] MEDS: LEVOTHYROXINE 88 MCG TAB PO SCH (06:05)
[2017-03-11] MEDS: INSULIN ASPART [NOVOLOG] 3 ML PEN SC SCH ×2 (07:38→12:00)
[2017-03-11 08:00] VITALS: BP 142/76; RESP 18
[2017-03-11] MEDS: FOLIC ACID 1 MG TAB PO SCH (09:16)
[2017-03-11] MEDS: ALLOPURINOL 100 MG TAB PO SCH (09:16)
[2017-03-11] MEDS: LOSARTAN 50 MG TAB PO SCH (09:17)
[2017-03-11] MEDS: TICAGRELOR 90 MG TABLET PO SCH (09:18)
[2017-03-11] MEDS: ASPIRIN 81 MG TAB PO SCH (09:20)
--- NOTE | 2017-03-11 10:11 | RADRPT ---
PROCEDURE: XR Chest 1 View. CLINICAL INDICATION: Shortness of breath. TECHNIQUE: AP view of the chest was obtained. COMPARISON: March 07, 2017 FINDINGS: The heart size is within normal limits. Calcified atherosclerosis is noted in the aorta. Left-sided AICD has its lead over the heart and appears stable. No consolidations are identified. No pneumoth orax is seen. Osseous structures are intact. IMPRESSION: Calcified atherosclerosis in the aorta. Clear lungs. RPTAT: AA .Leonard Gonzales MD, Date Time Electronically viewed and signed by .Leonard Gonzales MD, on 03/11/2017 10:11 .P/
[2017-03-11] MEDS ORDERED: FURO40TA4 PO (10:38)
[2017-03-11] MEDS ORDERED: CARV3.1260 PO (10:38)
--- NOTE | 2017-03-11 10:40 | PDOCDIS ---
Discharge Instructions CONDITION Patient Condition: Stable HOME CARE INSTRUCTIONS: Diet Instructions: 2gm NaSpecial Diet: LOW FAT LOW CHOLES FOLLOW UP/APPOINTMENTS Follow-up Plan Follow up with your regular doctor Tuesday as scheduled Follow up with Dr Flores within 2 weeks Office Address [address] [place] [id number] Office SANTOSH GENTILE MD Mar 11, 2017 10:40
--- NOTE | 2017-03-11 10:51 | DS ---
Date/Time of Note Date/Time of Note DATE: 03/11/17 TIME: 10:46 Discharge Summary Admission/Discharge Info Admit Date/Time Mar 07, 2017 at 09:52 Discharge Date/Time Discharge Diagnosis acute on chronic systolic heart failure Patient Condition: Stable Consults cardiology Procedures 9.18 BNP 4440 Cr on date of discharge 1.60 Hx of Present Illness CC SOB x 1 day HPI 82 yo M with pmhx chronic systolic HF (EF 25-30%) last admitted 2 weeks ago for chest pain found to have acute on chronic HF, NSTEMI and high grade heart block. Pt underwent LHC 02.17 with PCI placement, also had PM placement prior to discharge. Of note, there was concern pt was getting overdieresed and cardiology service changed his home lasix from BID to daily. Pt doing well much of last week, watching his salt intake. However yesterday went to a family BBQ and at a hot dog. Had orthopnea last night when trying to sleep. No chest pain. Hospital Course Pt admitted for acute on chronic systolic heart failure with resultant volume overload state 2/2 lasix dose reduction during last hospital stay for KEN on CKD. Pt was resumed on previous BID PO regimen and breathing returned to baseline. Pt seen by cardiology started back on bb (had been stopped during previous admit for bradycardia however pt had PM placement towards the end of last hospitalization). Pt to follow up with scorer helper and PCP. Changes from admit meds lasix change from daily back to BID carvedilol started Home Meds Active Scripts Furosemide* (Furosemide*) 40 Mg Tablet, 40 MG PO DAILY@06 for 30 Days, #30 TAB Prov:SANTOSH GENTILE MD 02/27/17 Ticagrelor* (Brilinta*) 90 Mg Tablet, 90 MG PO BID for 30 Days, #60 TAB Prov:SANTOSH GENTILE MD 02/27/17 Reported Medications Losartan Potassium* (Losartan Potassium*) 50 Mg Tablet, 50 MG PO DAILY, TAB 02/15/17 Insulin Glargine* (Lantus*) 100 Unit/Ml Soln, 20 UNIT SC QHS, #1 VIAL 02/15/17 Folic Acid* (Folic Acid*) 1 Mg Tablet, 1 MG PO DAILY, TAB 05/27/16 Simvastatin* (Zocor*) 40 Mg Tablet, 40 MG PO QHS, #30 TAB 05/27/16 Aspirin* (Aspirin* Chew) 81 Mg Tab.chew, 81 MG PO DAILY, TAB.CHEW 05/27/16 Metformin* (Glucophage*) 1,000 Mg Tablet, 1000 MG PO BID, #60 TAB 05/06/16 Allopurinol* (Allopurinol*) 100 Mg Tablet, 100 MG PO DAILY, TAB 05/06/16 Levothyroxine Sodium* (Levothyroxine Sodium*) 88 Mcg Tablet, 88 MCG PO BEFORE BREAKFAST, #30 TAB 05/06/16 Follow-up Plan Follow up with your regular doctor Tuesday as scheduled Follow up with Dr Flores within 2 weeks Office Address [address] [place] [id number] Office Primary Care Provider Not On Staff Doctor Time spent on discharge: > 30 minutes Pending Labs Laboratory Tests Test 03/10/17 11:38 03/10/17 17:03 03/10/17 20:22 03/11/17 02:32 Bedside Glucose 155mg/dL (70-220) 121mg/dL (70-220) 194mg/dL (70-220) 84mg/dL (70-220) Test 03/11/17 04:48 03/11/17 07:36 Sodium Level 144mmol/L (135-144) Potassium Level 3.6mmol/L (3.5-5.1) Chloride Level 105mmol/L (97-110) Carbon Dioxide Level 30mmol/L (21-31) Anion Gap 13 (8-16) Blood Urea Nitrogen 34mg/dl (7-20) Creatinine 1.60mg/dl (0.61-1.24) Glucose Level 78mg/dl (70-220) Calcium Level 8.9mg/dl (8.4-10.2) Magnesium Level 2.3mg/dl (1.7-2.5) Bedside Glucose 71mg/dL (70-220) Copies To: CC: ELEANOR FLORES ELLEN MD Mar 11, 2017 10:51
--- NOTE | 2017-03-11 16:32 | RADRPT ---
Vent Rate: 84 bpm RR Interval: 0 msec MD Interval: 170 msec QRS Duration: 170 msec QT Interval: 472 msec QTC Interval: 557 msec P-R-T [place]: 56 - -4 - 150 degrees Sinus rhythm with premature atrial complexes Left bundle branch block Abnormal ECG Electronically Signed By: Zak Canela [id number]
== END 2017-03-11 12:15 | disposition home or self-care (01) | DRG 291 ==
LOC: E/R 07:59 → MS4 09:52 → PP2 03-11 00:05
PROVIDERS: ADMIT Internal Medicine; ATTEND Internal Medicine
DX: I13.0 Hypertensive heart and chronic kidney disease with heart failure and stage 1 through stage 4 chronic kidney disease, or unspecified chronic kidney disease (principal); I50.23 Acute on chronic systolic (congestive) heart failure; N17.9 Acute kidney failure, unspecified; E11.22 Type 2 diabetes mellitus with diabetic chronic kidney disease; I25.5 Ischemic cardiomyopathy; Z95.2 Presence of prosthetic heart valve; I25.10 Atherosclerotic heart disease of native coronary artery without angina pectoris; E03.9 Hypothyroidism, unspecified; E78.5 Hyperlipidemia, unspecified; N18.9 Chronic kidney disease, unspecified; Z95.0 Presence of cardiac pacemaker; Z95.5 Presence of coronary angioplasty implant and graft; Z79.82 Long term (current) use of aspirin; Z79.4 Long term (current) use of insulin
CPT/HCPCS: 36415; 71010; 80048; 80053; 82550; 82553; 82962; 83690; 83735; 83880; 84484; 85025; 93005; 94660; 96374; 96375; J1940; J1815; J2270; J2405

== ENCOUNTER 2017-04-18 06:19 | Inpatient (IN) | payer MEDICARE, OTHER ==
[~2017-04-18] VITALS: Ht 162.6 cm; Wt 67.0 kg
[~2017-04-18 06:19] MED LIST changes: +CARV3.1260 PO
[2017-04-18 06:22] VITALS: Ht 162.6 cm; Wt 67.0 kg
[2017-04-18] MEDS ORDERED: ASPIRIN 325 MG TAB PO STA (06:23)
[2017-04-18] MEDS ORDERED: ALBUTEROL 0.5% (NEB) 2.5 MG/0.5 ML AMP INH STA (06:23)
[2017-04-18] MEDS ORDERED: IPRATROPIUM (NEB) 0.5 MG/2.5 ML AMP INH STA (06:23)
[2017-04-18] MEDS ORDERED: FUROSEMIDE 40 MG INJ IV ONE (06:30)
--- NOTE | 2017-04-18 06:58 | RADRPT ---
PROCEDURE: XR Chest. CLINICAL INDICATION: Chest pain TECHNIQUE: Single frontal view of the chest was obtained COMPARISON: CR CHEST 08/10/2016 FINDINGS: The heart is enlarged. The thoracic aorta is calcified. The patient is status post T A V R. There is a left-sided AICD in place. There is mild pulmonary vascular congestion. There is a slightly more focal right lower lobe infiltrate. There is no pleural effusion or pneumothorax. RPTAT: AA IMPRESSION: Mild cardiomegaly. Mild pulmonary vascular congestion. Slightly more focal right lower lobe infiltrate. Calcified aorta consistent with atherosclerotic disease. .Blake Martin MD, MD Date Time Electronically viewed and signed by .Blake Martin MD, on 04/18/2017 06:58 .S/
--- NOTE | 2017-04-18 07:16 | ERD ---
ER Documentation Chief Complaint Chief Complaint SOB since awaking this am, mild CP, tachypneaic, labored, ra sats low HPI This is an 82-year-old male with a known history of systolic congestive heart failure, with unknown ejection fraction of 25-30%. The patient's featherer is Dr. Flores and he has a history of aortic valve replacement at [facility], T AVR, PTCA and stent placement of the left main with a drug-eluting stent for recurrent high-grade stenosis. The patient indicates that February 2017 the patient had an AICD placed after he had development of a 2-1 heart block. The patient presents to the emergency department today as he woke up an hour prior to arrival with severe difficulty in breathing and shortness of breath. He stated the shortness of breath was at rest and similar in nature to his previous CHF exacerbations. He denies any swelling of his lower extremities. He has had no fevers no shaking or chills. The patient indicates he has been compliant with his medications and takes 40 mg of Lasix once daily. He denies any recent travel or prolonged immobilization. His last hospitalization was March 07, over a month and a half ago for similar symptoms. He also indicates that upon awakening he had left-sided chest pressure which was 8 out of 10 in intensity, nonradiating, with no associated symptoms of nausea vomiting or diaphoresis. The chest pressure has been persistent. He denies any hemoptysis hematemesis or melanotic stools. He denies any abdominal pain. [place] any calf tenderness ROS All systems reviewed and are negative except as per history of present illness. Medications Home Meds Active Scripts Carvedilol* (Carvedilol*) 3.125 Mg Tablet, 3.125 MG PO BID for 30 Days, #60 TAB Prov:SANTOSH GENTILE MD 03/11/17 Furosemide* (Furosemide*) 40 Mg Tablet, 40 MG PO BID for 30 Days, #60 TAB Prov:SANTOSH GENTILE MD 03/11/17 Ticagrelor* (Brilinta*) 90 Mg Tablet, 90 MG PO BID for 30 Days, #60 TAB Prov:SANTOSH GENTILE MD 02/27/17 Reported Medications Losartan Potassium* (Losartan Potassium*) 50 Mg Tablet, 50 MG PO DAILY, TAB 02/15/17 Insulin Glargine* (Lantus*) 100 Unit/Ml Soln, 20 UNIT SC QHS, #1 VIAL 02/15/17 Folic Acid* (Folic Acid*) 1 Mg Tablet, 1 MG PO DAILY, TAB 05/27/16 Simvastatin* (Zocor*) 40 Mg Tablet, 40 MG PO QHS, #30 TAB 05/27/16 Aspirin* (Aspirin* Chew) 81 Mg Tab.chew, 81 MG PO DAILY, TAB.CHEW 05/27/16 Metformin* (Glucophage*) 1,000 Mg Tablet, 1000 MG PO BID, #60 TAB 05/06/16 Allopurinol* (Allopurinol*) 100 Mg Tablet, 100 MG PO DAILY, TAB 05/06/16 Levothyroxine Sodium* (Levothyroxine Sodium*) 88 Mcg Tablet, 88 MCG PO BEFORE BREAKFAST, #30 TAB 05/06/16 Allergies Allergies: Coded Allergies: No Known Allergies (Verified Allergy, Unknown, 04/18/17) PMhx/Soc History of Surgery: Yes (pacer and AICD, appendectomy, Angiogram ) Anesthesia Reaction: No Hx Neurological Disorder: No Hx Respiratory Disorders: No Hx Cardiac Disorders: Yes (CHF, HTN) Hx Psychiatric Problems: No Hx Miscellaneous Medical Probl: No Hx Alcohol Use: No Hx Substance Use: No Hx Tobacco Use: No (DENIES EVER SMOKING) Smoking Status: Never smoker Physical Exam Vitals Vital Signs Date Time Temp Pulse Resp B/P Pulse Ox O2 Delivery O2 Flow Rate FiO2 04/18/17 07:30 100 33 141/81 100 Mask 8.0 04/18/17 06:36 110 34 95 Nasal Cannula 3.0 04/18/17 06:31 Nasal Cannula 2 04/18/17 06:22 99.6 120 36 180/93 90 Physical Exam Constitutional:Well-developed. Well-nourished. HEENT:Normocephalic. Atraumatic.Pupils were equal round reactive to light. Moist mucous membranes.No tonsillar exudates. Neck: No nuchal rigidity. No lymphadenopathy. No posterior cervical spine tenderness or step-offs. Respiratory: Not using accessory muscles of respiration. Tachypneic. Rhonchi heard bilaterally. No wheezing on end auscultation. No Stridor. Cardiovascular: Sinus tachycardia with regular rhythm.No murmurs. No rubs were appreciated.S1, S2 normal. Distal pulses are palpable 2+ bilaterally. GI: Abdomen was soft. Nontender. Non Distended. No pulsatile abdominal masses or bruits. No rebound. No guarding. Bowel sounds were present and normal. Muscle skeletal: Full range of motion of both the upper and lower extremities bilaterally.Normal muscle tone.No assymetrical calf tenderness or swelling. Skin: No petechia, no purpura. No lesions on the palms or the soles of the feet. No maculopapular rash. NEURO: Patient was alert, awake, orientated x3.No facial droop. Gait observed and normal with no ataxia.Speech had regular rate and rhythm. No focal neurological deficits. Result Diagram: 04/18/17 0656 04/18/17 0656 Results 24 hrs Laboratory Tests Test 04/18/17 06:46 04/18/17 06:56 04/18/17 08:05 Prothrombin Time 13.1Sec Prothrombin Time Ratio 1.0 INR International Normalized Ratio 0.99 Activated Partial Thromboplast Time 28.3Sec White Blood Count 8.410^3/ul Red Blood Count 3.9510^6/ul Hemoglobin 10.4g/dl Hematocrit 32.1% Mean Corpuscular Volume 81.3fl Mean Corpuscular Hemoglobin 26.3pg Mean Corpuscular Hemoglobin Concent 32.4g/dl Red Cell Distribution Width 17.0% Platelet Count 93314^3/UL Mean Platelet Volume 10.7fl Neutrophils % 74.0% Lymphocytes % 15.0% Monocytes % 5.3% Eosinophils % 0.8% Basophils % 0.1% Nucleated Red Blood Cells % 0.0/100WBC Neutrophils # 6.210^3/ul Lymphocytes # 1.310^3/ul Monocytes # 0.510^3/ul Eosinophils # 0.110^3/ul Basophils # 0.010^3/ul Nucleated Red Blood Cells # 0.010^3/ul Sodium Level 145mmol/L Potassium Level 3.5mmol/L Chloride Level 108mmol/L Carbon Dioxide Level 24mmol/L Anion Gap 17 Blood Urea Nitrogen 27mg/dl Creatinine 1.72mg/dl Glucose Level 166mg/dl Calcium Level 9.3mg/dl Total Bilirubin 0.8mg/dl Direct Bilirubin 0.00mg/dl Indirect Bilirubin 0.8mg/dl Aspartate Amino Transf (AST/SGOT) 25IU/L Alanine Aminotransferase (ALT/SGPT) 27IU/L Alkaline Phosphatase 102IU/L Creatine Kinase 33IU/L Creatine Kinase Index 2.0 Creatinine Kinase MB (Mass) 0.67ng/ml Troponin I 0.015ng/ml B-Type Natriuretic Peptide 5200PG/ML Total Protein 8.1g/dl Albumin 4.0g/dl Globulin 4.10g/dl Albumin/Globulin Ratio 0.97 Urine Color STRAW Urine Clarity CLEAR Urine pH 6.0 Urine Specific [place] 1.006 Urine Ketones NEGATIVEmg/dL Urine Nitrite NEGATIVEmg/dL Urine Bilirubin NEGATIVEmg/dL Urine Urobilinogen NEGATIVEmg/dL Urine Leukocyte Esterase NEGATIVELeu/ul Urine Hemoglobin NEGATIVEmg/dL Urine Glucose NEGATIVEmg/dL Urine Total Protein NEGATIVEmg/dl Current Medications Medications (Trade) Dose Ordered Sig/Leanna Route PRN Reason Start Time Stop Time Status Last Admin Dose Admin Aspirin (Aspirin) 325 mg ONCE STAT PO 04/18/17 06:23 04/18/17 06:27 DC Albuterol (Proventil 0.5% (Neb)) 10 mg ONCE STAT INH 04/18/17 06:23 04/18/17 06:27 DC 04/18/17 06:35 Ipratropium [place] [facility] (Atrovent 0.02% (Neb)) 1 mg ONCE STAT INH 04/18/17 06:23 04/18/17 06:27 DC 04/18/17 06:35 Furosemide 40 mg 40 mg ONCE ONCE IV 04/18/17 06:30 04/18/17 06:31 DC Azithromycin 250 ml @ 250 mls/hr ONCE STAT IV 04/18/17 09:07 04/18/17 10:06 UNV Ceftriaxone Sodium (Rocephin) 50 ml @ 100 mls/hr ONCE STAT IVPB 04/18/17 09:07 04/18/17 09:36 UNV Procedures/MDM The patient presented to the emergency department with shortness of breath. My differential diagnosis included but was not limited to upper airway obstruction , CHF, pulmonary embolism, cardiac ischemia, pneumonia, pneumothorax, anemia, drug overdose, pulmonary edema, COPD or asthma. Patient was immediately placed on a mechanical field engineer continuous pulse oximetry and IV access was established by nursing staff. The patient was given nebulizer treatments of continuous albuterol Atrovent. The patient had been given 40 mg of Lasix intravenously. The patient also complained of chest pain but aspirin had already been taken by the patient just prior to arrival. Therefore he received nitroglycerin. 12 Lead EKG tracing ordered and reviewed by myself showed: Sinus tachycardia 120 bpm and no arrhythmia. SC interval normal. QRS duration widened at 142 ms with a left bundle branch block and rightward axis deviation. No ST segment elevation No ST segment depression. No changes consistent with acute ischemia. The patient had a 1 view chest radiograph ordered and reviewed by myself and the radiologist which indicated the following: Mild cardiomegaly. Mild pulmonary vascular congestion. Slightly more focal right lower lobe infiltrate. Calcified aorta consistent with atherosclerotic disease. Given the patient's symptoms are consistent with congestive heart failure and the radiographic finding of a focal right lower lobe infiltrate the patient had blood cultures obtained as well as a lactic acid given that the patient had sirs criteria. He was started on antibiotics which included azithromycin and Rocephin. The patient will be admitted in serious condition to the hospitalist. Departure Diagnosis: Primary Impression: CHF (congestive heart failure) Congestive heart failure type: systolic Congestive heart failure chronicity: acute on chronic Qualified Code: I50.23 - Acute on chronic systolic congestive heart failure Additional Impressions: Pneumonia Pneumonia type: due to unspecified organism Laterality: right Lung location : lower lobe of lung Qualified Code: J18.1 - Pneumonia of right lower lobe due to infectious organism Chest pain Chest pain type: unspecified Qualified Code: R07.9 - Chest pain, unspecified type Condition: Serious ABELARDO ZAMORANO Apr 18, 2017 07:16
[2017-04-18] MEDS ORDERED: AZITHROMYCIN 500MG/NS (PMX) 250 ML IV STA (09:07)
[2017-04-18] MEDS ORDERED: CEFTRIAXONE 1 GM/50 ML (PMX) 50 ML IVPB STA (09:07)
[2017-04-18 13:09] VITALS: BP 147/88; PULSE 110; RESP 23
[2017-04-18] MEDS ORDERED: INFLUENZA VIRUS VACCINE 0.5 ML (DISPENSING) IM* ONE (14:00)
[2017-04-18 16:00] VITALS: PULSE 102
[2017-04-18 16:04] VITALS: PULSE 104
--- NOTE | 2017-04-18 16:54 | HP ---
Date/Time of Note Date/Time of Note DATE: 04/18/17 TIME: 16:50 Assessment/Plan VTE Prophylaxis VTE Prophylaxis Intervention: SCD's Lines/Catheters IV Catheter Type (from Nrsg): Saline Lock Assessment/Plan Assessment/Plan 82 yo M with pmhx chronic systolic HF with last TTE 25-30% at the end of January here with 2w of cough, SOB and crackles. 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 also checking procalcitonin might need higher maintenance lasix dose HPI/ROS Admit Date/Time Admit Date/Time Apr 18, 2017 at 09:11 Hx of Present Illness CC SOB HPI 82 yo M with pmhx chronic systolic HF admitted for 2 weeks of nonproductive cough, progressive SOB. Pt denies fevers, chills, or leg swelling. Of note, pt admitted last month for acute on chronic systolic HF. Discharge weight was 64 kg and his admit weight here is 3 kg heavier. 10p ROS as per HPI PMH/Family/Social Past Surgical History Past Surgical Hx: angioplasty Social History lives in the community Smoking Status: Never smoker Exam/Review of Systems Vital Signs Vitals Vital Signs Date Time Temp Pulse Resp B/P Pulse Ox O2 Delivery O2 Flow Rate FiO2 04/18/17 16:04 104 04/18/17 13:46 Nasal Cannula 2.0 04/18/17 13:09 23 147/88 97 04/18/17 06:22 99.6 Exam Exam nad, pleasant EOMI MMM no mrg +bb crackles abd soft no rashes no edema labs noted, BNP elevated CXR personally reviewed-->looks like bl volume Additional Comments last TTE 8.29 EF 25-30% Labs Result Diagram: 04/18/17 0656 04/18/17 0656 Medications Medications Current Medications Acetaminophen/ Hydrocodone Bitart ([place] (5/325)) 1 tab Q6H PRN PO PAIN LEVEL 4 -6; Start 04/18/17 at 17:00 Morphine Sulfate (morphine) 2 mg Q4H PRN IV PAIN LEVEL 7-10; Start 04/18/17 at 17:00 Docusate Sodium (Colace) 100 mg Q12H PRN PO CONSTIPATION; Start 04/18/17 at 17 :00 Magnesium Hydroxide (Milk Of Mag) 30 ml DAILY PRN PO CONSTIPATION; Start 04/18 at 17:00 Enoxaparin Sodium (Lovenox) 40 mg DAILY SC ; Start 04/19/17 at 09:00 Levofloxacin (Levaquin) 750 mg DAILY@06 PO ; Start 04/19/17 at 06:00; Stop 04/25/17 at 05:59 Allopurinol (Zyloprim) 100 mg DAILY PO ; Start 04/19/17 at 09:00; Status UNV Aspirin (Aspirin) 81 mg DAILY PO ; Start 04/19/17 at 09:00; Status UNV Carvedilol (Coreg) 3.125 mg BID PO ; Start 04/18/17 at 21:00; Status UNV Folic Acid (Folic Acid) 1 mg DAILY PO ; Start 04/19/17 at 09:00; Status UNV Furosemide (Lasix) 40 mg BID PO ; Start 04/18/17 at 21:00; Status UNV Insulin Glargine (Lantus) 20 unit QHS SC ; Start 04/18/17 at 21:00; Status UNV Losartan Potassium (Cozaar) 50 mg DAILY PO ; Start 04/19/17 at 09:00; Status UNV Ticagrelor (Brilinta) 90 mg BID PO ; Start 04/18/17 at 21:00; Status UNV Miscellaneous Information 40 mg QHS PO ; Start 04/18/17 at 21:00; Status UNV Furosemide (Lasix) 40 mg BID IV ; Start 04/18/17 at 17:00; Status UNV SANTOSH GENTILE MD Apr 18, 2017 16:54
[2017-04-18] MEDS ORDERED: morphine 2 MG INJ IV PRN (17:00)
[2017-04-18] MEDS ORDERED: MAGNESIUM HYDROXIDE 30ML CUP PO PRN (17:00)
[2017-04-18] MEDS ORDERED: GLUCOSE GEL 15 GRAM TUBE PO PRN ×2 (17:00)
[2017-04-18] MEDS ORDERED: DEXTROSE 50% 50 ML SYRINGE IV PRN ×2 (17:00)
[2017-04-18] MEDS ORDERED: DOCUSATE SODIUM 100 MG CAP PO PRN (17:00)
[2017-04-18] MEDS ORDERED: GLUCAGON 1 MG INJ IM PRN (17:00)
[2017-04-18] MEDS ORDERED: FUROSEMIDE 40 MG INJ IV SCH (17:00)
[2017-04-18] MEDS ORDERED: NACL 0.9% 3 ML SYG IV SCH (17:00)
[2017-04-18] MEDS ORDERED: GLUCOSE GEL 15 GRAM TUBE BUCCAL PRN (17:00)
[2017-04-18] MEDS ORDERED: HYDROCODONE/APAP (5/325) TAB PO PRN (17:00)
[2017-04-18 19:00] VITALS: PULSE 104
[2017-04-18] MEDS: FUROSEMIDE 40 MG TAB PO SCH (19:01)
[2017-04-18] MEDS: INSULIN ASPART [NOVOLOG] 3 ML PEN SC SCH ×2 (19:04→20:29)
[2017-04-18 19:49] VITALS: BP 141/70; RESP 18
[2017-04-18] MEDS: ATORVASTATIN 20 MG TAB PO SCH (20:24)
[2017-04-18] MEDS: TICAGRELOR 90 MG TABLET PO SCH (20:25)
[2017-04-18 20:28] VITALS: PULSE 100
[2017-04-18] MEDS: INSULIN GLARGINE [LANtus] 3 ML PEN SC SCH (20:31)
[2017-04-18] MEDS ORDERED: ACETAMINOPHEN 325 MG TAB PO PRN (22:00)
[2017-04-19] VITALS (13 sets, daily range): BP systolic 117–147; BP diastolic 64–80; PULSE 79–95; RESP 18–20
[2017-04-19] MEDS: ACCU-CHEK XX SCH (01:28)
[2017-04-19] MEDS ORDERED: ACCU-CHEK XX SCH (02:00)
[2017-04-19] MEDS: LEVOFLOXACIN 750 MG TABLET PO SCH (06:01)
[2017-04-19] MEDS: LEVOTHYROXINE 88 MCG TAB PO SCH (06:01)
[2017-04-19] MEDS: FUROSEMIDE 40 MG TAB PO SCH ×2 (06:02→17:10)
[2017-04-19] MEDS: INSULIN ASPART [NOVOLOG] 3 ML PEN SC SCH ×4 (08:00→21:00)
[2017-04-19] MEDS: LOSARTAN 50 MG TAB PO SCH (08:41)
[2017-04-19] MEDS: FOLIC ACID 1 MG TAB PO SCH (08:41)
[2017-04-19] MEDS: ALLOPURINOL 100 MG TAB PO SCH (08:41)
[2017-04-19] MEDS: ASPIRIN 81 MG TAB PO SCH (08:41)
[2017-04-19] MEDS: ENOXAPARIN 40 MG/0.4 ML SYG SC SCH (08:46)
[2017-04-19] MEDS: TICAGRELOR 90 MG TABLET PO SCH ×2 (08:46→21:09)
--- NOTE | 2017-04-19 17:13 | CONS ---
Date/Time of Note Date/Time of Note DATE: 04/19/17 TIME: 17:09 Assessment/Plan Assessment/Plan Additional Assessment/Plan Rx CHF and PNA - Full note dictated # [id number] Consultation Date/Type/Reason Admit Date/Time Apr 18, 2017 at 09:11 Initial Consult Date Exam/Review of Systems Vital Signs Vitals Vital Signs Date Time Temp Pulse Resp B/P Pulse Ox O2 Delivery O2 Flow Rate FiO2 04/19/17 16:40 98.0 85 18 133/72 100 04/19/17 08:00 Nasal Cannula 2.0 Intake and Output 04/18/17 04/18/17 04/19/17 15:00 23:00 07:00 Intake Total 50 ml 120 ml Output Total 800 ml 400 ml Balance -750 ml -280 ml Results Result Diagram: 04/19/17 0654 04/19/17 0654 Results 24 hrs Laboratory Tests Test 04/18/17 18:09 04/18/17 20:28 04/19/17 06:54 04/19/17 08:39 Bedside Glucose 209 164 70 White Blood Count 6.0 # Red Blood Count 3.37 L Hemoglobin 8.7 L Hematocrit 27.6 L Mean Corpuscular Volume 81.9 L Mean Corpuscular Hemoglobin 25.8 L Mean Corpuscular Hemoglobin Concent 31.5 L Red Cell Distribution Width 17.0 H Platelet Count 147 Mean Platelet Volume 11.5 H Neutrophils % 55.5 Lymphocytes % 30.7 Monocytes % 9.9 Eosinophils % 1.2 Basophils % 0.2 Nucleated Red Blood Cells % 0.0 Neutrophils # 3.3 Lymphocytes # 1.8 Monocytes # 0.6 Eosinophils # 0.1 Basophils # 0.0 Nucleated Red Blood Cells # 0.0 Sodium Level 146 H Potassium Level 3.4 L Chloride Level 106 Carbon Dioxide Level 28 Anion Gap 15 Blood Urea Nitrogen 31 H Creatinine 1.72 H Glucose Level 70 # Calcium Level 8.7 Test 04/19/17 11:34 Bedside Glucose 120 Medications Medications Current Medications Acetaminophen/ Hydrocodone Bitart ([place] (5/325)) 1 tab Q6H PRN PO PAIN LEVEL 4 -6; Start 04/18/17 at 17:00 Morphine Sulfate (morphine) 2 mg Q4H PRN IV PAIN LEVEL 7-10; Start 04/18/17 at 17:00 Docusate Sodium (Colace) 100 mg Q12H PRN PO CONSTIPATION; Start 04/18/17 at 17 :00 Magnesium Hydroxide (Milk Of Mag) 30 ml DAILY PRN PO CONSTIPATION; Start 04/18 at 17:00 Enoxaparin Sodium (Lovenox) 40 mg DAILY SC Last administered on 04/19/17 08: 46; Admin Dose 40 MG; Start 04/19/17 at 09:00 Levofloxacin (Levaquin) 750 mg DAILY@06 PO Last administered on 04/19/17 06: 01; Admin Dose 750 MG; Start 04/19/17 at 06:00; Stop 04/25/17 at 05:59 Allopurinol (Zyloprim) 100 mg DAILY PO Last administered on 04/19/17 08:41; Admin Dose 100 MG; Start 04/19/17 at 09:00 Aspirin (Aspirin) 81 mg DAILY PO Last administered on 04/19/17 08:41; Admin Dose 81 MG; Start 04/19/17 at 09:00 Carvedilol (Coreg) 3.125 mg BID PO Last administered on 04/19/17 08:41; Admin Dose 3.125 MG; Start 04/18/17 at 21:00 Folic Acid (Folic Acid) 1 mg DAILY PO Last administered on 04/19/17 08:41; Admin Dose 1 MG; Start 04/19/17 at 09:00 Insulin Glargine (Lantus) 20 unit QHS SC Last administered on 04/18/17 20:31 ; Admin Dose 20 UNIT; Start 04/18/17 at 21:00 Losartan Potassium (Cozaar) 50 mg DAILY PO Last administered on 04/19/17 08: 41; Admin Dose 50 MG; Start 04/19/17 at 09:00 Ticagrelor (Brilinta) 90 mg BID PO Last administered on 04/19/17 08:46; Admin Dose 90 MG; Start 04/18/17 at 21:00 Atorvastatin Calcium (Lipitor) 20 mg DAILY@21 PO Last administered on 20:24; Admin Dose 20 MG; Start 04/18/17 at 21:00 Diagnostic Test (Pha) (Accu-Chek) 1 ea 02 XX ; Start 04/19/17 at 02:00 Miscellaneous Information 1 ea NOTE XX ; Start 04/18/17 at 17:00 Glucose (Glutose) 15 gm Q15M PRN PO DECREASED GLUCOSE; Start 04/18/17 at 17:00 Glucose (Glutose) 22.5 gm Q15M PRN PO DECREASED GLUCOSE; Start 04/18/17 at 17: 00 Dextrose (D50w Syringe) 25 ml Q15M PRN IV DECREASED GLUCOSE; Start 04/18/17 at 17:00 Dextrose (D50w Syringe) 50 ml Q15M PRN IV DECREASED GLUCOSE; Start 04/18/17 at 17:00 Glucagon (Glucagen) 1 mg Q15M PRN IM DECREASED GLUCOSE; Start 04/18/17 at 17: 00 Glucose (Glutose) 15 gm Q15M PRN BUCCAL DECREASED GLUCOSE; Start 04/18/17 at 17:00 Acetaminophen (Tylenol Tab) 650 mg Q6H PRN PO PAIN AND OR ELEVATED TEMP Last administered on 04/18/17 22:07; Admin Dose 650 MG; Start 04/18/17 at 22:00 DONNA MORALES MD Apr 19, 2017 17:13
[2017-04-19] MEDS ORDERED: POTASSIUM CHLORIDE (SR) 20 MEQ TAB PO STA (17:26)
--- NOTE | 2017-04-19 17:26 | PN ---
Date/Time of Note Date/Time of Note DATE: 04/19/17 TIME: 17:25 Assessment/Plan VTE Prophylaxis VTE Prophylaxis Intervention: SCD's Lines/Catheters [facility] Saline Lock Urinary Cath still in place: No Assessment/Plan Assessment/Plan 82 yo M with pmhx chronic systolic HF with last TTE 25-30% at the end of January here with 2w of cough, SOB and crackles. 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 also checking procalcitonin might need higher maintenance lasix dose Subjective 24 Hr Interval Summary Free Text/Dictation does not feel worse Exam/Review of Systems Vital Signs Vitals Vital Signs Date Time Temp Pulse Resp B/P Pulse Ox O2 Delivery O2 Flow Rate FiO2 04/19/17 16:40 98.0 85 18 133/72 100 04/19/17 08:00 Nasal Cannula 2.0 Intake and Output 04/18/17 04/18/17 04/19/17 15:00 23:00 07:00 Intake Total 50 ml 120 ml Output Total 800 ml 400 ml Balance -750 ml -280 ml Exam nad no mrg no crackles abd soft no rashes Results Result Diagram: 04/19/17 0654 04/19/17 0654 Results 24 hrs Laboratory Tests Test 04/18/17 18:09 04/18/17 20:28 04/19/17 06:54 04/19/17 08:39 Bedside Glucose 209 164 70 White Blood Count 6.0 # Red Blood Count 3.37 L Hemoglobin 8.7 L Hematocrit 27.6 L Mean Corpuscular Volume 81.9 L Mean Corpuscular Hemoglobin 25.8 L Mean Corpuscular Hemoglobin Concent 31.5 L Red Cell Distribution Width 17.0 H Platelet Count 147 Mean Platelet Volume 11.5 H Neutrophils % 55.5 Lymphocytes % 30.7 Monocytes % 9.9 Eosinophils % 1.2 Basophils % 0.2 Nucleated Red Blood Cells % 0.0 Neutrophils # 3.3 Lymphocytes # 1.8 Monocytes # 0.6 Eosinophils # 0.1 Basophils # 0.0 Nucleated Red Blood Cells # 0.0 Sodium Level 146 H Potassium Level 3.4 L Chloride Level 106 Carbon Dioxide Level 28 Anion Gap 15 Blood Urea Nitrogen 31 H Creatinine 1.72 H Glucose Level 70 # Calcium Level 8.7 Test 04/19/17 11:34 04/19/17 17:09 Bedside Glucose 120 120 Medications Medications Current Medications Acetaminophen/ Hydrocodone Bitart ([place] (5/325)) 1 tab Q6H PRN PO PAIN LEVEL 4 -6; Start 04/18/17 at 17:00 Morphine Sulfate (morphine) 2 mg Q4H PRN IV PAIN LEVEL 7-10; Start 04/18/17 at 17:00 Docusate Sodium (Colace) 100 mg Q12H PRN PO CONSTIPATION; Start 04/18/17 at 17 :00 Magnesium Hydroxide (Milk Of Mag) 30 ml DAILY PRN PO CONSTIPATION; Start 04/18 at 17:00 Enoxaparin Sodium (Lovenox) 40 mg DAILY SC Last administered on 04/19/17 08: 46; Admin Dose 40 MG; Start 04/19/17 at 09:00 Levofloxacin (Levaquin) 750 mg DAILY@06 PO Last administered on 04/19/17 06: 01; Admin Dose 750 MG; Start 04/19/17 at 06:00; Stop 04/25/17 at 05:59 Allopurinol (Zyloprim) 100 mg DAILY PO Last administered on 04/19/17 08:41; Admin Dose 100 MG; Start 04/19/17 at 09:00 Aspirin (Aspirin) 81 mg DAILY PO Last administered on 04/19/17 08:41; Admin Dose 81 MG; Start 04/19/17 at 09:00 Carvedilol (Coreg) 3.125 mg BID PO Last administered on 04/19/17 08:41; Admin Dose 3.125 MG; Start 04/18/17 at 21:00 Folic Acid (Folic Acid) 1 mg DAILY PO Last administered on 04/19/17 08:41; Admin Dose 1 MG; Start 04/19/17 at 09:00 Insulin Glargine (Lantus) 20 unit QHS SC Last administered on 04/18/17 20:31 ; Admin Dose 20 UNIT; Start 04/18/17 at 21:00 Losartan Potassium (Cozaar) 50 mg DAILY PO Last administered on 04/19/17 08: 41; Admin Dose 50 MG; Start 04/19/17 at 09:00 Ticagrelor (Brilinta) 90 mg BID PO Last administered on 04/19/17 08:46; Admin Dose 90 MG; Start 04/18/17 at 21:00 Atorvastatin Calcium (Lipitor) 20 mg DAILY@21 PO Last administered on 20:24; Admin Dose 20 MG; Start 04/18/17 at 21:00 Diagnostic Test (Pha) (Accu-Chek) 1 ea 02 XX ; Start 04/19/17 at 02:00 Miscellaneous Information 1 ea NOTE XX ; Start 04/18/17 at 17:00 Glucose (Glutose) 15 gm Q15M PRN PO DECREASED GLUCOSE; Start 04/18/17 at 17:00 Glucose (Glutose) 22.5 gm Q15M PRN PO DECREASED GLUCOSE; Start 04/18/17 at 17: 00 Dextrose (D50w Syringe) 25 ml Q15M PRN IV DECREASED GLUCOSE; Start 04/18/17 at 17:00 Dextrose (D50w Syringe) 50 ml Q15M PRN IV DECREASED GLUCOSE; Start 04/18/17 at 17:00 Glucagon (Glucagen) 1 mg Q15M PRN IM DECREASED GLUCOSE; Start 04/18/17 at 17: 00 Glucose (Glutose) 15 gm Q15M PRN BUCCAL DECREASED GLUCOSE; Start 04/18/17 at 17:00 Acetaminophen (Tylenol Tab) 650 mg Q6H PRN PO PAIN AND OR ELEVATED TEMP Last administered on 04/18/17 22:07; Admin Dose 650 MG; Start 04/18/17 at 22:00 SANTOSH GENTILE MD Apr 19, 2017 17:26
[2017-04-19] MEDS: ATORVASTATIN 20 MG TAB PO SCH (21:07)
[2017-04-19] MEDS: INSULIN GLARGINE [LANtus] 3 ML PEN SC SCH (21:10)
[2017-04-20] VITALS (11 sets, daily range): BP systolic 111–134; BP diastolic 63–79; PULSE 81–90; RESP 18–20
[2017-04-20] MEDS: ACCU-CHEK XX SCH (02:43)
--- NOTE | 2017-04-20 05:44 | CONS ---
DATE OF ADMISSION: 04/18/2017 DATE OF CONSULTATION: 04/19/2017 TYPE OF CONSULTATION: Pulmonary. REFERRING PHYSICIAN: Horace Kowalski MD REASON FOR EVALUATION: CHF, shortness of breath, a defibrillator. HISTORY OF PRESENT ILLNESS: Mr. Adams is an 83-year-old gentleman known to me from multiple admis sions in the past, history of heart failure, cardiomyopathy, EF 25% to 30%, history of ICD placement , history of coronary artery disease, who comes to the hospital now for evaluation of progressive sh ortness of breath. The patient has an infiltrate on chest x-ray, is consistent with pneumonia. The patient does not report any chest pain. At this point it does not appear the patient ruled in for acute myocardial infarction, likely has pneumonia and some mild CHF exacerbation ____ will continue to diurese the patient gently and treat his pneumonia with antibiotics. Will provide more recommend ations ____ as more information about his condition becomes available. MEDICATIONS: 1. Allopurinol ____ 2. Aspirin once a day. 3. Folic acid. 4. Losartan 50 mg p.o. once a day. 5. Levothyroxine 88 mcg. 5. Levofloxacin. 6. Coreg 3.125 mg. 7. Insulin sliding scale. 8. Lasix 40 mg p.o. b.i.d. 9. Antibiotics. REVIEW OF SYSTEMS: CONSTITUTIONAL: No fevers, no chills, no shortness of breath ____ . HEENT: No changes in vision or hearing. CARDIAC: No chest pain reported now. RESPIRATORY: No shortness of breath. GASTROINTESTINAL: No nausea, vomiting, diarrhea, constipation. GENITOURINARY: No dysuria, hematuria, difficulty with urination. NEUROLOGIC: No focal deficits. HEMATOLOGIC: ____ PSYCHIATRIC: No known history of psychiatric illness. PHYSICAL EXAMINATION: VITAL SIGNS: Temperature is 99.0, heart rate 85, blood pressure ____. GENERAL: He is a well-nourished gentleman in no ac distress, alert and oriented x3, aware of his co ndition. HEAD: Normocephalic and atraumatic. Eyes anicteric. NECK: Supple. JVD 6 cm. There is no lymphadenopathy. HEART: Regular with soft systolic murmur. CHEST: PMI is nondisplaced. There is no S3. LUNGS: Coarse at bases. ABDOMEN: Distended, bowel sounds are present. There is no hepatosplenomegaly. GENITOURINARY: Exam is intact. SKIN: ICD site appears to well treated. LABORATORY DATA: White blood cell count 6.0, hemoglobin is 8.7, platelets 147. INR is 0.9. Sodium 143, potassium 3.6, his BUN is 31, creatinine 0.72. ASSESSMENT AND PLAN: 1. Shortness of breath. Shortness of breath is likely multifactorial. The patient does not report any chest pain to me at this point. For now, ____ expected. Will to follow as needed. 2. Congestive heart failure. The patient has heart failure, acute, diastolic/systolic. Continue g entle diuresis. 3. Possible pneumonia. The patient has antibiotics Will adjust therapy as needed. 4. Renal insufficiency. Baseline creatinine is about 1.6, now it is 1.72, fairly stable. We will defer to primary team for evaluation and management. 3. Implantable cardioverter defibrillator ____ function now. Continue to follow chest pain. The p atient did not rule in for ischemia. ____ is expected. I would like to thank Dr. Kowalski for referring this patient for my evaluation. Dictated By: DONNA MORALES MD ML/ELIZABETH Conf#: [id number] DID#: [id number]
[2017-04-20] MEDS: FUROSEMIDE 40 MG TAB PO SCH (06:19)
[2017-04-20] MEDS: LEVOTHYROXINE 88 MCG TAB PO SCH (06:19)
[2017-04-20] MEDS: LEVOFLOXACIN 750 MG TABLET PO SCH (06:19)
[2017-04-20] MEDS: INSULIN ASPART [NOVOLOG] 3 ML PEN SC SCH ×4 (08:00→20:51)
[2017-04-20] MEDS: ASPIRIN 81 MG TAB PO SCH (08:39)
[2017-04-20] MEDS: FOLIC ACID 1 MG TAB PO SCH (08:39)
[2017-04-20] MEDS: LOSARTAN 50 MG TAB PO SCH (08:39)
[2017-04-20] MEDS: ALLOPURINOL 100 MG TAB PO SCH (08:39)
[2017-04-20] MEDS: TICAGRELOR 90 MG TABLET PO SCH ×2 (08:41→20:44)
[2017-04-20] MEDS: ENOXAPARIN 40 MG/0.4 ML SYG SC SCH (08:44)
--- NOTE | 2017-04-20 14:17 | CONS ---
Date/Time of Note Date/Time of Note DATE: 04/20/17 TIME: 14:11 Assessment/Plan Assessment/Plan Chief Complaint/Hosp Course IMP: 1.CHF-systolic acute on chronic 2.cardiomyopathy-low EF 3.SOB 4.HTN 5. AICD 6.s/p TAVR 7. Renal failure 8. PNA-RLL Recc: -Tele -Continue asa/brilinta -Continue statin -Continue coreg -change losartan to entresto -Continue lasix diuresis -Follow volume status closely -continue abx's and f/u cx data Problems: Consultation Date/Type/Reason Admit Date/Time Apr 18, 2017 at 09:11 Initial Consult Date 04/19/2017 Type of Consultation: Cardiology Reason for Consultation CHF Referring Provider: SANTOSH GENTILE MD Exam/Review of Systems Vital Signs Vitals Vital Signs Date Time Temp Pulse Resp B/P Pulse Ox O2 Delivery O2 Flow Rate FiO2 04/20/17 12:22 87 04/20/17 12:18 97.9 18 134/72 100 04/20/17 07:51 Nasal Cannula 2.0 Intake and Output 04/19/17 04/19/17 04/20/17 15:00 23:00 07:00 Intake Total 400 ml 500 ml Output Total 1350 ml 1200 ml Balance -950 ml -700 ml Exam Review of Systems: CONSTITUTIONAL: No fevers, chills. PULMONARY: mild sob, positive cough CARDIOVASCULAR: No chest pain/palpitations GASTROINTESTINAL: No nausea/vomiting. GENITOURINARY: No hematuria/dysuria. MUSCULOSKELETAL: No myagias/arthalgias. PSYCHIATRIC: The patient denies depression. NEUROLOGIC: No weakness Constitutional: alert, oriented Psych: no complaints Head: normocephalic ENMT: mucosa pink and moist Neck: jvd (9 cm water), supple Respiratory: diminished breath sounds (at bases/B) Cardiovascular: regular rate and rhythm Gastrointestinal: non-tender, soft Musculoskeletal: muscle tone (normal) Extremities: edema (none) Neurological: other (No focal deficits) Results Result Diagram: 04/19/17 0654 04/20/17 0837 Results 24 hrs Laboratory Tests Test 04/19/17 17:09 04/19/17 21:04 04/20/17 02:37 04/20/17 03:03 Bedside Glucose 120 84 65 L 122 Test 04/20/17 06:20 11/1/17 08:22 04/20/17 08:37 04/20/17 12:10 Bedside Glucose 80 85 134 Sodium Level 144 Potassium Level 3.3 L Chloride Level 107 Carbon Dioxide Level 27 Anion Gap 13 Blood Urea Nitrogen 40 H Creatinine 1.82 H Glucose Level 78 Calcium Level 8.8 Magnesium Level 2.1 Medications Medications Current Medications Acetaminophen/ Hydrocodone Bitart ([place] (5/325)) 1 tab Q6H PRN PO PAIN LEVEL 4 -6; Start 04/18/17 at 17:00 Morphine Sulfate (morphine) 2 mg Q4H PRN IV PAIN LEVEL 7-10; Start 04/18/17 at 17:00 Docusate Sodium (Colace) 100 mg Q12H PRN PO CONSTIPATION; Start 04/18/17 at 17 :00 Magnesium Hydroxide (Milk Of Mag) 30 ml DAILY PRN PO CONSTIPATION; Start 04/18 at 17:00 Enoxaparin Sodium (Lovenox) 40 mg DAILY SC Last administered on 04/20/17 08:44 ; Admin Dose 40 MG; Start 04/19/17 at 09:00 Allopurinol (Zyloprim) 100 mg DAILY PO Last administered on 04/20/17 08:39; Admin Dose 100 MG; Start 04/19/17 at 09:00 Aspirin (Aspirin) 81 mg DAILY PO Last administered on 04/20/17 08:39; Admin Dose 81 MG; Start 04/19/17 at 09:00 Carvedilol (Coreg) 3.125 mg BID PO Last administered on 04/20/17 08:39; Admin Dose 3.125 MG; Start 04/18/17 at 21:00 Folic Acid (Folic Acid) 1 mg DAILY PO Last administered on 04/20/17 08:39; Admin Dose 1 MG; Start 04/19/17 at 09:00 Insulin Glargine (Lantus) 20 unit QHS SC Last administered on 04/19/17 21:10 ; Admin Dose 20 UNIT; Start 04/18/17 at 21:00 Losartan Potassium (Cozaar) 50 mg DAILY PO Last administered on 04/20/17 08:39 ; Admin Dose 50 MG; Start 04/19/17 at 09:00 Ticagrelor (Brilinta) 90 mg BID PO Last administered on 04/20/17 08:41; Admin Dose 90 MG; Start 04/18/17 at 21:00 Atorvastatin Calcium (Lipitor) 20 mg DAILY@21 PO Last administered on 21:07; Admin Dose 20 MG; Start 04/18/17 at 21:00 Diagnostic Test (Pha) (Accu-Chek) 1 ea 02 XX Last administered on 04/20/17 02: 43; Admin Dose 1 EA; Start 04/19/17 at 02:00 Miscellaneous Information 1 ea NOTE XX ; Start 04/18/17 at 17:00 Glucose (Glutose) 15 gm Q15M PRN PO DECREASED GLUCOSE; Start 04/18/17 at 17:00 Glucose (Glutose) 22.5 gm Q15M PRN PO DECREASED GLUCOSE; Start 04/18/17 at 17: 00 Dextrose (D50w Syringe) 25 ml Q15M PRN IV DECREASED GLUCOSE; Start 04/18/17 at 17:00 Dextrose (D50w Syringe) 50 ml Q15M PRN IV DECREASED GLUCOSE; Start 04/18/17 at 17:00 Glucagon (Glucagen) 1 mg Q15M PRN IM DECREASED GLUCOSE; Start 04/18/17 at 17: 00 Glucose (Glutose) 15 gm Q15M PRN BUCCAL DECREASED GLUCOSE; Start 04/18/17 at 17:00 Acetaminophen (Tylenol Tab) 650 mg Q6H PRN PO PAIN AND OR ELEVATED TEMP Last administered on 04/18/17 22:07; Admin Dose 650 MG; Start 04/18/17 at 22:00 Levofloxacin (Levaquin) 750 mg Q48H PO ; Start 04/22/17 at 06:00; Stop 04/25/17 at 05:59 ELEANOR ROLDAN Apr 20, 2017 14:17
--- NOTE | 2017-04-20 15:14 | PN ---
Date/Time of Note Date/Time of Note DATE: 04/20/17 TIME: 15:03 Assessment/Plan VTE Prophylaxis VTE Prophylaxis Intervention: heparin Lines/Catheters IV Catheter Type (from Nrs): Saline Lock Urinary Cath still in place: No Assessment/Plan Assessment/Plan 1. Congestive heart failure, acute on chronic, systolic, on iv lasix, decrease dosage 2. Dilated cardiomyopathy, on coreg, losartan 3. CAD, s/p PCI/stent, on lipitor, coreg and brilinta 4. Pneumonia, on levaquin 5. HTN, controlled 5. AICD, stable 6. s/p TAVR, stable 7. Renal failure, likely chronic, follow up with BMP 8. Microcytic anemia, follow up with H/H, iron panel 9. Hypothyroidism, on synthroid 10. DVT prophylaxis: heparin Subjective 24 Hr Interval Summary Free Text/Dictation less shortness of breath and cough Exam/Review of Systems Vital Signs Vitals Vital Signs Date Time Temp Pulse Resp B/P Pulse Ox O2 Delivery O2 Flow Rate FiO2 04/20/17 12:22 87 04/20/17 12:18 97.9 18 134/72 100 04/20/17 07:51 Nasal Cannula 2.0 Intake and Output 04/19/17 04/19/17 04/20/17 15:00 23:00 07:00 Intake Total 400 ml 500 ml Output Total 1350 ml 1200 ml Balance -950 ml -700 ml Exam Constitutional: alert, oriented, well developed Psych: nl mood/affect, no complaints Head: atraumatic, normocephalic Eyes: EOMI, nl conjunctiva, nl lids ENMT: nl external ears & nose, nl lips & teeth, nl nasal mucosa & septum Neck: non-tender, supple Respiratory: clear to auscultation, normal air movement, No congested cough, No crackles/rales, No diminished breath sounds, No intercostal retraction, No labored breathing, No other, No respirations, No tactile fremitus, No wheezing Cardiovascular: nl pulses, regular rate and rhythm, No S3, No S4, No bruits, No diastolic murmur, No edema, No gallop, No irregular rhythm, No jugular venous distention (JVD), No murmurs/extra sounds, No other, No rub, No systolic murmur Gastrointestinal: nl liver, spleen, non-tender, soft, No ascites, No bowel sounds, No distended, No firm, No hepatomegaly, No mass , No other, No rebound or guarding, No splenomegaly, No surgical scars, No tender Musculoskeletal: nl extremities to inspection Extremities: normal pulses, No calf tenderness, No clubbing, No cyanosis, No edema, No other, No palpable cord, No pitting pedal edema, No tenderness 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, nl mental status, nl speech, nl strength Skin: nl turgor Results Result Diagram: 04/19/17 0654 04/20/17 0837 Results 24 hrs Laboratory Tests Test 04/19/17 17:09 04/19/17 21:04 04/20/17 02:37 04/20/17 03:03 Bedside Glucose 120 84 65 L 122 Test 04/20/17 06:20 04/20/17 08:22 04/20/17 08:37 04/20/17 12:10 Bedside Glucose 80 85 134 Sodium Level 144 Potassium Level 3.3 L Chloride Level 107 Carbon Dioxide Level 27 Anion Gap 13 Blood Urea Nitrogen 40 H Creatinine 1.82 H Glucose Level 78 Calcium Level 8.8 Magnesium Level 2.1 Medications Medications Current Medications Acetaminophen/ Hydrocodone Bitart ([place] (5/325)) 1 tab Q6H PRN PO PAIN LEVEL 4 -6; Start 04/18/17 at 17:00 Morphine Sulfate (morphine) 2 mg Q4H PRN IV PAIN LEVEL 7-10; Start 04/18/17 at 17:00 Docusate Sodium (Colace) 100 mg Q12H PRN PO CONSTIPATION; Start 04/18/17 at 17 :00 Magnesium Hydroxide (Milk Of Mag) 30 ml DAILY PRN PO CONSTIPATION; Start 04/18 at 17:00 Enoxaparin Sodium (Lovenox) 40 mg DAILY SC Last administered on 04/20/17 08:44 ; Admin Dose 40 MG; Start 04/19/17 at 09:00 Allopurinol (Zyloprim) 100 mg DAILY PO Last administered on 04/20/17 08:39; Admin Dose 100 MG; Start 04/19/17 at 09:00 Aspirin (Aspirin) 81 mg DAILY PO Last administered on 04/20/17 08:39; Admin Dose 81 MG; Start 04/19/17 at 09:00 Carvedilol (Coreg) 3.125 mg BID PO Last administered on 04/20/17 08:39; Admin Dose 3.125 MG; Start 04/18/17 at 21:00 Folic Acid (Folic Acid) 1 mg DAILY PO Last administered on 04/20/17 08:39; Admin Dose 1 MG; Start 04/19/17 at 09:00 Insulin Glargine (Lantus) 20 unit QHS SC Last administered on 04/19/17 21:10 ; Admin Dose 20 UNIT; Start 04/18/17 at 21:00 Losartan Potassium (Cozaar) 50 mg DAILY PO Last administered on 04/20/17 08:39 ; Admin Dose 50 MG; Start 04/19/17 at 09:00 Ticagrelor (Brilinta) 90 mg BID PO Last administered on 04/20/17 08:41; Admin Dose 90 MG; Start 04/18/17 at 21:00 Atorvastatin Calcium (Lipitor) 20 mg DAILY@21 PO Last administered on 21:07; Admin Dose 20 MG; Start 04/18/17 at 21:00 Diagnostic Test (Pha) (Accu-Chek) 1 ea 02 XX Last administered on 04/20/17 02: 43; Admin Dose 1 EA; Start 04/19/17 at 02:00 Miscellaneous Information 1 ea NOTE XX ; Start 04/18/17 at 17:00 Glucose (Glutose) 15 gm Q15M PRN PO DECREASED GLUCOSE; Start 04/18/17 at 17:00 Glucose (Glutose) 22.5 gm Q15M PRN PO DECREASED GLUCOSE; Start 04/18/17 at 17: 00 Dextrose (D50w Syringe) 25 ml Q15M PRN IV DECREASED GLUCOSE; Start 04/18/17 at 17:00 Dextrose (D50w Syringe) 50 ml Q15M PRN IV DECREASED GLUCOSE; Start 04/18/17 at 17:00 Glucagon (Glucagen) 1 mg Q15M PRN IM DECREASED GLUCOSE; Start 04/18/17 at 17: 00 Glucose (Glutose) 15 gm Q15M PRN BUCCAL DECREASED GLUCOSE; Start 04/18/17 at 17:00 Acetaminophen (Tylenol Tab) 650 mg Q6H PRN PO PAIN AND OR ELEVATED TEMP Last administered on 04/18/17 22:07; Admin Dose 650 MG; Start 04/18/17 at 22:00 Levofloxacin (Levaquin) 750 mg Q48H PO ; Start 04/22/17 at 06:00; Stop 04/25/17 at 05:59 Metolazone (Zaroxolyn) 5 mg DAILY PO ; Start 04/21/17 at 09:00 LESLIE KEANE MD Apr 20, 2017 15:14
--- NOTE | 2017-04-20 16:37 | RADRPT ---
PROCEDURE: XR Chest. CLINICAL INDICATION: CHF. TECHNIQUE: Single AP portable chest. COMPARISON: 08/10/2069 Chest x-ray FINDINGS: Mild cardiomegaly with single chamber left subclavian AICD. Atherosclerotic calcification of the ao rta. The lungs are clear without pleural effusion or focal consolidation. No pneumothorax. The osse ous structures and soft tissues are unremarkable. IMPRESSION: 1. Mild cardiomegaly. No acute intrathoracic abnormality . RPTAT:AAJJ Physician Ke Date Time Electronically viewed and signed by Physician Ke on 04/20/2017 16:37 MATY/
[2017-04-20] MEDS ORDERED: POTASSIUM CHLORIDE (SR) 20 MEQ TAB PO STA (16:56)
[2017-04-20] MEDS: FUROSEMIDE 20 MG INJ IV SCH (17:18)
[2017-04-20] MEDS ORDERED: FUROSEMIDE 40 MG INJ IV SCH (18:00)
[2017-04-20] MEDS: INSULIN GLARGINE [LANtus] 3 ML PEN SC SCH (20:44)
[2017-04-20] MEDS: ATORVASTATIN 20 MG TAB PO SCH (20:45)
[2017-04-20] MEDS: HEPARIN 5,000 UNIT/0.5 ML VIAL SC SCH (20:45)
[2017-04-20] MEDS ORDERED: ZOLPIDEM 5 MG TAB PO ONE (21:11)
[2017-04-21] VITALS (11 sets, daily range): BP systolic 127–161; BP diastolic 63–80; PULSE 73–86; RESP 20
[2017-04-21] MEDS: ACCU-CHEK XX SCH (02:06)
[2017-04-21] MEDS: FUROSEMIDE 20 MG INJ IV SCH ×2 (06:17→17:20)
[2017-04-21] MEDS: LEVOTHYROXINE 88 MCG TAB PO SCH (06:17)
[2017-04-21] MEDS: INSULIN ASPART [NOVOLOG] 3 ML PEN SC SCH ×4 (08:00→20:14)
[2017-04-21] MEDS: ASPIRIN 81 MG TAB PO SCH (08:42)
[2017-04-21] MEDS: FOLIC ACID 1 MG TAB PO SCH (08:42)
[2017-04-21] MEDS: LOSARTAN 50 MG TAB PO SCH (08:42)
[2017-04-21] MEDS: ALLOPURINOL 100 MG TAB PO SCH (08:44)
[2017-04-21] MEDS: HEPARIN 5,000 UNIT/0.5 ML VIAL SC SCH ×2 (08:47→20:24)
[2017-04-21] MEDS: TICAGRELOR 90 MG TABLET PO SCH ×2 (08:48→20:24)
[2017-04-21] MEDS ORDERED: METOLAZONE 5 MG TAB PO SCH (09:00)
[2017-04-21] MEDS: SOD FERRIC GLUC COMPLX 125 MG in SOD CHLORIDE 0.9% 100 ML IVPB SCH (13:02)
--- NOTE | 2017-04-21 17:40 | PN ---
Date/Time of Note Date/Time of Note DATE: 04/21/17 TIME: 17:38 Assessment/Plan VTE Prophylaxis VTE Prophylaxis Intervention: heparin Lines/Catheters IV Catheter Type (from Nrs): Saline Lock Urinary Cath still in place: No Assessment/Plan Assessment/Plan 1. Congestive heart failure, acute on chronic, systolic, on iv lasix, decrease dosage 2. Dilated cardiomyopathy, on coreg, losartan 3. CAD, s/p PCI/stent, on lipitor, coreg and brilinta 4. Pneumonia, on levaquin 5. HTN, controlled 5. AICD, stable 6. s/p TAVR, stable 7. Renal failure, likely chronic, follow up with BMP 8. Microcytic anemia, follow up with H/H, iron panel 9. Hypothyroidism, on synthroid 10. DVT prophylaxis: heparin Subjective 24 Hr Interval Summary Free Text/Dictation c/o SOB< occasional wheezing, pt felt weak Exam/Review of Systems Vital Signs Vitals Vital Signs Date Time Temp Pulse Resp B/P Pulse Ox O2 Delivery O2 Flow Rate FiO2 04/21/17 16:02 79 04/21/17 16:00 Nasal Cannula 2.0 04/21/17 15:38 98.4 20 129/67 100 Intake and Output 04/20/17 04/20/17 04/21/17 15:00 23:00 07:00 Intake Total 600 ml 680 ml Output Total 650 ml 900 ml Balance -50 ml -220 ml Exam Constitutional: alert Psych: no complaints Head: normocephalic Eyes: nl conjunctiva Neck: non-tender, supple Respiratory: crackles/rales, diminished breath sounds Cardiovascular: nl pulses, regular rate and rhythm Gastrointestinal: non-tender, soft Musculoskeletal: muscle weakness, nl extremities to inspection, swelling Extremities: normal pulses 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, nl mental status, nl speech, nl strength Skin: nl turgor Lymph: nl lymph nodes Results Result Diagram: 04/19/17 0654 04/20/17 0837 Results 24 hrs Laboratory Tests Test 04/20/17 18:21 04/20/17 20:41 04/21/17 01:10 04/21/17 01:53 Creatine Kinase 43 43 Creatine Kinase Index 2.6 2.9 Creatinine Kinase MB (Mass) 1.11 1.25 Troponin I 0.072 0.073 Bedside Glucose 129 70 Test 04/21/17 08:05 04/21/17 08:40 04/21/17 12:40 Iron Level 23 L Total Iron Binding Capacity 320 Percent Iron Saturation 7 L Ferritin 81.6 Bedside Glucose 84 125 Medications Medications Current Medications Acetaminophen/ Hydrocodone Bitart ([place] (5/325)) 1 tab Q6H PRN PO PAIN LEVEL 4 -6; Start 04/18/17 at 17:00 Morphine Sulfate (morphine) 2 mg Q4H PRN IV PAIN LEVEL 7-10; Start 04/18/17 at 17:00 Docusate Sodium (Colace) 100 mg Q12H PRN PO CONSTIPATION; Start 04/18/17 at 17 :00 Magnesium Hydroxide (Milk Of Mag) 30 ml DAILY PRN PO CONSTIPATION; Start 04/18 at 17:00 Allopurinol (Zyloprim) 100 mg DAILY PO Last administered on 04/21/17 08:44; Admin Dose 100 MG; Start 04/19/17 at 09:00 Aspirin (Aspirin) 81 mg DAILY PO Last administered on 04/21/17 08:42; Admin Dose 81 MG; Start 04/19/17 at 09:00 Carvedilol (Coreg) 3.125 mg BID PO Last administered on 04/21/17 08:44; Admin Dose 3.125 MG; Start 04/18/17 at 21:00 Folic Acid (Folic Acid) 1 mg DAILY PO Last administered on 04/21/17 08:42; Admin Dose 1 MG; Start 04/19/17 at 09:00 Insulin Glargine (Lantus) 20 unit QHS SC Last administered on 04/20/17 20:44; Admin Dose 20 UNIT; Start 04/18/17 at 21:00 Losartan Potassium (Cozaar) 50 mg DAILY PO Last administered on 04/21/17 08:42 ; Admin Dose 50 MG; Start 04/19/17 at 09:00 Ticagrelor (Brilinta) 90 mg BID PO Last administered on 04/21/17 08:48; Admin Dose 90 MG; Start 04/18/17 at 21:00 Atorvastatin Calcium (Lipitor) 20 mg DAILY@21 PO Last administered on 20:45; Admin Dose 20 MG; Start 04/18/17 at 21:00 Diagnostic Test (Pha) (Accu-Chek) 1 ea 02 XX Last administered on 04/21/17 02: 06; Admin Dose 1 EA; Start 04/19/17 at 02:00 Miscellaneous Information 1 ea NOTE XX ; Start 04/18/17 at 17:00 Glucose (Glutose) 15 gm Q15M PRN PO DECREASED GLUCOSE; Start 04/18/17 at 17:00 Glucose (Glutose) 22.5 gm Q15M PRN PO DECREASED GLUCOSE; Start 04/18/17 at 17: 00 Dextrose (D50w Syringe) 25 ml Q15M PRN IV DECREASED GLUCOSE; Start 04/18/17 at 17:00 Dextrose (D50w Syringe) 50 ml Q15M PRN IV DECREASED GLUCOSE; Start 04/18/17 at 17:00 Glucagon (Glucagen) 1 mg Q15M PRN IM DECREASED GLUCOSE; Start 04/18/17 at 17: 00 Glucose (Glutose) 15 gm Q15M PRN BUCCAL DECREASED GLUCOSE; Start 04/18/17 at 17:00 Acetaminophen (Tylenol Tab) 650 mg Q6H PRN PO PAIN AND OR ELEVATED TEMP Last administered on 04/18/17 22:07; Admin Dose 650 MG; Start 04/18/17 at 22:00 Levofloxacin (Levaquin) 750 mg Q48H PO ; Start 04/22/17 at 06:00; Stop 04/25/17 at 05:59 Metolazone (Zaroxolyn) 5 mg DAILY PO Last administered on 04/21/17 08:44; Admin Dose 5 MG; Start 04/21/17 at 09:00 Heparin Sodium (Porcine) 5000 unit 5,000 unit BID SC Last administered on 08:47; Admin Dose 5,000 UNIT; Start 04/20/17 at 21:00 Ferric Sodium Gluconate Complex/ Sodium Chloride (Ferrlecit/NS) 110 ml @ 110 mls/hr Q24H IVPB Last administered on 04/21/17 13:02; Admin Dose 110 MLS/HR; Start 04/21/17 at 13:00; Stop 04/25/17 at 13:59 WALDO ALDANA MD Apr 21, 2017 17:40
--- NOTE | 2017-04-21 18:40 | CONS ---
Date/Time of Note Date/Time of Note DATE: 04/21/17 TIME: 18:38 Assessment/Plan Assessment/Plan Chief Complaint/Hosp Course IMP: 1.CHF-systolic acute on chronic 2.cardiomyopathy-low EF 3.SOB 4.HTN 5. AICD 6.s/p TAVR 7. Renal failure 8. PNA-RLL Recc: -Tele -Continue asa/brilinta -Continue statin -Continue coreg -change losartan to entresto which will be done as outpatient as not on formulary at [facility] -Continue lasix diuresis and will satrt low dose aldactone -Follow volume status closely -continue abx's and f/u cx data Problems: Consultation Date/Type/Reason Admit Date/Time Apr 18, 2017 at 09:11 Initial Consult Date 04/19/2017 Type of Consultation: Cardiology Reason for Consultation CHF Referring Provider: SANTOSH GENTILE MD Exam/Review of Systems Vital Signs Vitals Vital Signs Date Time Temp Pulse Resp B/P Pulse Ox O2 Delivery O2 Flow Rate FiO2 04/21/17 16:02 79 04/21/17 16:00 Nasal Cannula 2.0 04/21/17 15:38 98.4 20 129/67 100 Intake and Output 04/20/17 04/20/17 04/21/17 15:00 23:00 07:00 Intake Total 600 ml 680 ml Output Total 650 ml 900 ml Balance -50 ml -220 ml Exam Review of Systems: CONSTITUTIONAL: No fevers, chills. PULMONARY: No sob CARDIOVASCULAR: No chest pain/palpitations GASTROINTESTINAL: No nausea/vomiting. GENITOURINARY: No hematuria/dysuria. MUSCULOSKELETAL: No myagias/arthalgias. PSYCHIATRIC: The patient denies depression. NEUROLOGIC: No weakness Constitutional: alert, oriented Psych: no complaints Head: normocephalic ENMT: mucosa pink and moist Neck: jvd (9 cm water), supple Respiratory: diminished breath sounds (at bases/B) Cardiovascular: regular rate and rhythm Gastrointestinal: non-tender, soft Musculoskeletal: muscle tone Extremities: normal pulses Neurological: other (No focal deficits) Results Result Diagram: 04/19/17 0654 04/20/17 0837 Results 24 hrs Laboratory Tests Test 04/20/17 20:41 04/21/17 01:10 04/21/17 01:53 04/21/17 08:05 Bedside Glucose 129 70 Creatine Kinase 43 Creatine Kinase Index 2.9 Creatinine Kinase MB (Mass) 1.25 Troponin I 0.073 Iron Level 23 L Total Iron Binding Capacity 320 Percent Iron Saturation 7 L Ferritin 81.6 Test 04/21/17 08:40 04/21/17 12:40 04/21/17 17:22 Bedside Glucose 84 125 119 Medications Medications Current Medications Acetaminophen/ Hydrocodone Bitart ([place] (5/325)) 1 tab Q6H PRN PO PAIN LEVEL 4 -6; Start 04/18/17 at 17:00 Morphine Sulfate (morphine) 2 mg Q4H PRN IV PAIN LEVEL 7-10; Start 04/18/17 at 17:00 Docusate Sodium (Colace) 100 mg Q12H PRN PO CONSTIPATION; Start 04/18/17 at 17 :00 Magnesium Hydroxide (Milk Of Mag) 30 ml DAILY PRN PO CONSTIPATION; Start 04/18 at 17:00 Allopurinol (Zyloprim) 100 mg DAILY PO Last administered on 04/21/17 08:44; Admin Dose 100 MG; Start 04/19/17 at 09:00 Aspirin (Aspirin) 81 mg DAILY PO Last administered on 04/21/17 08:42; Admin Dose 81 MG; Start 04/19/17 at 09:00 Carvedilol (Coreg) 3.125 mg BID PO Last administered on 04/21/17 08:44; Admin Dose 3.125 MG; Start 04/18/17 at 21:00 Folic Acid (Folic Acid) 1 mg DAILY PO Last administered on 04/21/17 08:42; Admin Dose 1 MG; Start 04/19/17 at 09:00 Insulin Glargine (Lantus) 20 unit QHS SC Last administered on 04/20/17 20:44; Admin Dose 20 UNIT; Start 04/18/17 at 21:00 Losartan Potassium (Cozaar) 50 mg DAILY PO Last administered on 04/21/17 08:42 ; Admin Dose 50 MG; Start 04/19/17 at 09:00 Ticagrelor (Brilinta) 90 mg BID PO Last administered on 04/21/17 08:48; Admin Dose 90 MG; Start 04/18/17 at 21:00 Atorvastatin Calcium (Lipitor) 20 mg DAILY@21 PO Last administered on 20:45; Admin Dose 20 MG; Start 04/18/17 at 21:00 Diagnostic Test (Pha) (Accu-Chek) 1 ea 02 XX Last administered on 04/21/17 02: 06; Admin Dose 1 EA; Start 04/19/17 at 02:00 Miscellaneous Information 1 ea NOTE XX ; Start 04/18/17 at 17:00 Glucose (Glutose) 15 gm Q15M PRN PO DECREASED GLUCOSE; Start 04/18/17 at 17:00 Glucose (Glutose) 22.5 gm Q15M PRN PO DECREASED GLUCOSE; Start 04/18/17 at 17: 00 Dextrose (D50w Syringe) 25 ml Q15M PRN IV DECREASED GLUCOSE; Start 04/18/17 at 17:00 Dextrose (D50w Syringe) 50 ml Q15M PRN IV DECREASED GLUCOSE; Start 04/18/17 at 17:00 Glucagon (Glucagen) 1 mg Q15M PRN IM DECREASED GLUCOSE; Start 04/18/17 at 17: 00 Glucose (Glutose) 15 gm Q15M PRN BUCCAL DECREASED GLUCOSE; Start 04/18/17 at 17:00 Acetaminophen (Tylenol Tab) 650 mg Q6H PRN PO PAIN AND OR ELEVATED TEMP Last administered on 04/18/17 22:07; Admin Dose 650 MG; Start 04/18/17 at 22:00 Levofloxacin (Levaquin) 750 mg Q48H PO ; Start 04/22/17 at 06:00; Stop 04/25/17 at 05:59 Metolazone (Zaroxolyn) 5 mg DAILY PO Last administered on 04/21/17 08:44; Admin Dose 5 MG; Start 04/21/17 at 09:00 Heparin Sodium (Porcine) 5000 unit 5,000 unit BID SC Last administered on 08:47; Admin Dose 5,000 UNIT; Start 04/20/17 at 21:00 Ferric Sodium Gluconate Complex/ Sodium Chloride (Ferrlecit/NS) 110 ml @ 110 mls/hr Q24H IVPB Last administered on 04/21/17 13:02; Admin Dose 110 MLS/HR; Start 04/21/17 at 13:00; Stop 04/25/17 at 13:59 ELEANOR ROLDAN Apr 21, 2017 18:40
[2017-04-21] MEDS: ATORVASTATIN 20 MG TAB PO SCH (20:14)
[2017-04-21] MEDS: INSULIN GLARGINE [LANtus] 3 ML PEN SC SCH (20:24)
[2017-04-21] MEDS ORDERED: DIPHENHYDRAMINE 50 MG CAP PO ONE (21:30)
[2017-04-22] VITALS (9 sets, daily range): BP systolic 112–137; BP diastolic 63–76; PULSE 75–85; RESP 18–78
[2017-04-22] MEDS: ACCU-CHEK XX SCH (02:00)
[2017-04-22] MEDS ORDERED: LEVOFLOXACIN 750 MG TABLET PO SCH (06:00)
[2017-04-22] MEDS: FUROSEMIDE 20 MG INJ IV SCH ×2 (07:00→17:13)
[2017-04-22] MEDS: INSULIN ASPART [NOVOLOG] 3 ML PEN SC SCH ×4 (08:00→21:00)
[2017-04-22] MEDS: SPIRONOLACTONE 25 MG TAB PO SCH (09:00)
[2017-04-22] MEDS: ALLOPURINOL 100 MG TAB PO SCH (09:00)
[2017-04-22] MEDS: ASPIRIN 81 MG TAB PO SCH (09:00)
[2017-04-22] MEDS: LEVOTHYROXINE 88 MCG TAB PO SCH (09:00)
[2017-04-22] MEDS: FOLIC ACID 1 MG TAB PO SCH (09:00)
[2017-04-22] MEDS: LOSARTAN 50 MG TAB PO SCH (09:01)
[2017-04-22] MEDS: HEPARIN 5,000 UNIT/0.5 ML VIAL SC SCH ×2 (09:05→21:55)
[2017-04-22] MEDS: TICAGRELOR 90 MG TABLET PO SCH ×2 (09:05→21:51)
[2017-04-22] MEDS: SOD FERRIC GLUC COMPLX 125 MG in SOD CHLORIDE 0.9% 100 ML IVPB SCH (12:04)
--- NOTE | 2017-04-22 13:13 | CONS ---
Date/Time of Note Date/Time of Note DATE: 04/22/17 TIME: 13:11 Assessment/Plan Assessment/Plan Chief Complaint/Hosp Course IMP: 1.CHF-systolic acute on chronic 2.cardiomyopathy-low EF 3.SOB 4.HTN 5. AICD 6.s/p TAVR 7. Renal failure 8. PNA-RLL Recc: -Tele -Continue asa/brilinta -Continue statin -Continue coreg -Fluid restiction -change losartan to entresto which will be done as outpatient as not on formulary at [facility] -continue abx's and f/u cx data Problems: Consultation Date/Type/Reason Admit Date/Time Apr 18, 2017 at 09:11 Initial Consult Date 04/19/2017 Type of Consultation: Cardiology Reason for Consultation cardiomyopathy/CHF Referring Provider: SANTOSH GENTILE MD Exam/Review of Systems Vital Signs Vitals Vital Signs Date Time Temp Pulse Resp B/P Pulse Ox O2 Delivery O2 Flow Rate FiO2 04/22/17 11:54 98.4 88 18 112/64 99 04/22/17 08:10 Nasal Cannula 2.0 Intake and Output 04/21/17 04/21/17 04/22/17 15:00 23:00 07:00 Intake Total 750 ml 300 ml Output Total 900 ml Balance -150 ml 300 ml Exam Review of Systems: CONSTITUTIONAL: No fevers, chills. PULMONARY: mild sob CARDIOVASCULAR: No chest pain/palpitations GASTROINTESTINAL: No nausea/vomiting. GENITOURINARY: No hematuria/dysuria. MUSCULOSKELETAL: No myagias/arthalgias. PSYCHIATRIC: The patient denies depression. NEUROLOGIC: No weakness Constitutional: alert, oriented Psych: no complaints Head: normocephalic ENMT: mucosa pink and moist Neck: jvd (9 cm water), supple Respiratory: clear to auscultation Cardiovascular: regular rate and rhythm Gastrointestinal: non-tender, soft Musculoskeletal: muscle tone (normal) Extremities: edema (none) Neurological: other Results Result Diagram: 04/22/17 0810 04/22/17 0810 Results 24 hrs Laboratory Tests Test 04/21/17 17:22 04/21/17 20:12 04/22/17 08:10 04/22/17 08:54 Bedside Glucose 119 148 135 White Blood Count 4.7 #L Red Blood Count 3.67 L Hemoglobin 9.5 L Hematocrit 29.3 L Mean Corpuscular Volume 79.8 L Mean Corpuscular Hemoglobin 25.9 L Mean Corpuscular Hemoglobin Concent 32.4 Red Cell Distribution Width 16.7 H Platelet Count 198 # Mean Platelet Volume 10.7 H Neutrophils % 54.8 Lymphocytes % 33.1 Monocytes % 6.9 Eosinophils % 2.4 Basophils % 0.2 Nucleated Red Blood Cells % 0.0 Neutrophils # 2.6 Lymphocytes # 1.5 Monocytes # 0.3 Eosinophils # 0.1 Basophils # 0.0 Nucleated Red Blood Cells # 0.0 Sodium Level 146 H Potassium Level 3.2 L Chloride Level 103 Carbon Dioxide Level 31 Anion Gap 15 Blood Urea Nitrogen 35 H Creatinine 1.92 H Glucose Level 71 Calcium Level 9.6 Total Bilirubin 0.4 Direct Bilirubin 0.00 Indirect Bilirubin 0.4 Aspartate Amino Transf (AST/SGOT) 259 H Alanine Aminotransferase (ALT/SGPT) 217 H Alkaline Phosphatase 280 H Total Protein 8.2 H Albumin 4.0 Globulin 4.20 H Albumin/Globulin Ratio 0.95 Test 04/22/17 12:00 Bedside Glucose 147 Medications Medications Current Medications Acetaminophen/ Hydrocodone Bitart ([place] (5/325)) 1 tab Q6H PRN PO PAIN LEVEL 4 -6; Start 04/18/17 at 17:00 Morphine Sulfate (morphine) 2 mg Q4H PRN IV PAIN LEVEL 7-10; Start 04/18/17 at 17:00 Docusate Sodium (Colace) 100 mg Q12H PRN PO CONSTIPATION; Start 04/18/17 at 17 :00 Magnesium Hydroxide (Milk Of Mag) 30 ml DAILY PRN PO CONSTIPATION; Start 04/18 at 17:00 Allopurinol (Zyloprim) 100 mg DAILY PO Last administered on 04/22/17 09:00; Admin Dose 100 MG; Start 04/19/17 at 09:00 Aspirin (Aspirin) 81 mg DAILY PO Last administered on 04/22/17 09:00; Admin Dose 81 MG; Start 04/19/17 at 09:00 Carvedilol (Coreg) 3.125 mg BID PO Last administered on 04/22/17 09:01; Admin Dose 3.125 MG; Start 04/18/17 at 21:00 Folic Acid (Folic Acid) 1 mg DAILY PO Last administered on 04/22/17 09:00; Admin Dose 1 MG; Start 04/19/17 at 09:00 Insulin Glargine (Lantus) 20 unit QHS SC Last administered on 04/21/17 20:24; Admin Dose 20 UNIT; Start 04/18/17 at 21:00 Losartan Potassium (Cozaar) 50 mg DAILY PO Last administered on 04/22/17 09:01 ; Admin Dose 50 MG; Start 04/19/17 at 09:00 Ticagrelor (Brilinta) 90 mg BID PO Last administered on 04/22/17 09:05; Admin Dose 90 MG; Start 04/18/17 at 21:00 Atorvastatin Calcium (Lipitor) 20 mg DAILY@21 PO Last administered on 20:14; Admin Dose 20 MG; Start 04/18/17 at 21:00 Diagnostic Test (Pha) (Accu-Chek) 1 ea 02 XX Last administered on 04/21/17 02: 06; Admin Dose 1 EA; Start 04/19/17 at 02:00 Miscellaneous Information 1 ea NOTE XX ; Start 04/18/17 at 17:00 Glucose (Glutose) 15 gm Q15M PRN PO DECREASED GLUCOSE; Start 04/18/17 at 17:00 Glucose (Glutose) 22.5 gm Q15M PRN PO DECREASED GLUCOSE; Start 04/18/17 at 17: 00 Dextrose (D50w Syringe) 25 ml Q15M PRN IV DECREASED GLUCOSE; Start 04/18/17 at 17:00 Dextrose (D50w Syringe) 50 ml Q15M PRN IV DECREASED GLUCOSE; Start 04/18/17 at 17:00 Glucagon (Glucagen) 1 mg Q15M PRN IM DECREASED GLUCOSE; Start 04/18/17 at 17: 00 Glucose (Glutose) 15 gm Q15M PRN BUCCAL DECREASED GLUCOSE; Start 04/18/17 at 17:00 Acetaminophen (Tylenol Tab) 650 mg Q6H PRN PO PAIN AND OR ELEVATED TEMP Last administered on 04/18/17 22:07; Admin Dose 650 MG; Start 04/18/17 at 22:00 Levofloxacin (Levaquin) 750 mg Q48H PO ; Start 04/22/17 at 06:00; Stop 04/25/17 at 05:59 Heparin Sodium (Porcine) 5000 unit 5,000 unit BID SC Last administered on 09:05; Admin Dose 5,000 UNIT; Start 04/20/17 at 21:00 Ferric Sodium Gluconate Complex/ Sodium Chloride (Ferrlecit/NS) 110 ml @ 110 mls/hr Q24H IVPB Last administered on 04/22/17 12:04; Admin Dose 110 MLS/HR; Start 04/21/17 at 13:00; Stop 04/25/17 at 13:59 Spironolactone (Aldactone) 12.5 mg DAILY PO Last administered on 04/22/17 09: 00; Admin Dose 12.5 MG; Start 04/22/17 at 09:00 ELEANOR ROLDAN Apr 22, 2017 13:13
--- NOTE | 2017-04-22 13:46 | PN ---
Date/Time of Note Date/Time of Note DATE: 04/22/17 TIME: 13:45 Assessment/Plan VTE Prophylaxis VTE Prophylaxis Intervention: SCD's Lines/Catheters [facility] Saline Lock Urinary Cath still in place: No Assessment/Plan Assessment/Plan 82 yo M with pmhx chronic systolic HF with last TTE 25-30% at the end of January here with 2w of cough, SOB and crackles, resolved with short course of increased dieretic. PLAN BID IV lasix (equivalent to home PO dose) pt already has AICD placed for primary prevention of SCD given his CHF No compelling indication to repeat TTE at this time as pt's provider relations consultant already knows abt pt's low EF cont bp meds, DAPT, DM meds, statin CM ref for HH will need outpatient cards and renal f/u Subjective 24 Hr Interval Summary Free Text/Dictation doesn't feel ready to go home Exam/Review of Systems Vital Signs Vitals Vital Signs Date Time Temp Pulse Resp B/P Pulse Ox O2 Delivery O2 Flow Rate FiO2 04/22/17 13:11 82 04/22/17 11:54 98.4 18 112/64 99 04/22/17 08:10 Nasal Cannula 2.0 Intake and Output 04/21/17 04/21/17 04/22/17 15:00 23:00 07:00 Intake Total 750 ml 300 ml Output Total 900 ml Balance -150 ml 300 ml Exam nad no mrg lungs without crackles abd soft no rashes Results Result Diagram: 04/22/17 0810 04/22/17 0810 Results 24 hrs Laboratory Tests Test 04/21/17 17:22 04/21/17 20:12 04/22/17 08:10 04/22/17 08:54 Bedside Glucose 119 148 135 White Blood Count 4.7 #L Red Blood Count 3.67 L Hemoglobin 9.5 L Hematocrit 29.3 L Mean Corpuscular Volume 79.8 L Mean Corpuscular Hemoglobin 25.9 L Mean Corpuscular Hemoglobin Concent 32.4 Red Cell Distribution Width 16.7 H Platelet Count 198 # Mean Platelet Volume 10.7 H Neutrophils % 54.8 Lymphocytes % 33.1 Monocytes % 6.9 Eosinophils % 2.4 Basophils % 0.2 Nucleated Red Blood Cells % 0.0 Neutrophils # 2.6 Lymphocytes # 1.5 Monocytes # 0.3 Eosinophils # 0.1 Basophils # 0.0 Nucleated Red Blood Cells # 0.0 Sodium Level 146 H Potassium Level 3.2 L Chloride Level 103 Carbon Dioxide Level 31 Anion Gap 15 Blood Urea Nitrogen 35 H Creatinine 1.92 H Glucose Level 71 Calcium Level 9.6 Total Bilirubin 0.4 Direct Bilirubin 0.00 Indirect Bilirubin 0.4 Aspartate Amino Transf (AST/SGOT) 259 H Alanine Aminotransferase (ALT/SGPT) 217 H Alkaline Phosphatase 280 H Total Protein 8.2 H Albumin 4.0 Globulin 4.20 H Albumin/Globulin Ratio 0.95 Test 04/22/17 12:00 Bedside Glucose 147 Medications Medications Current Medications Acetaminophen/ Hydrocodone Bitart ([place] (5/325)) 1 tab Q6H PRN PO PAIN LEVEL 4 -6; Start 04/18/17 at 17:00 Morphine Sulfate (morphine) 2 mg Q4H PRN IV PAIN LEVEL 7-10; Start 04/18/17 at 17:00 Docusate Sodium (Colace) 100 mg Q12H PRN PO CONSTIPATION; Start 04/18/17 at 17 :00 Magnesium Hydroxide (Milk Of Mag) 30 ml DAILY PRN PO CONSTIPATION; Start 04/18 at 17:00 Allopurinol (Zyloprim) 100 mg DAILY PO Last administered on 04/22/17 09:00; Admin Dose 100 MG; Start 04/19/17 at 09:00 Aspirin (Aspirin) 81 mg DAILY PO Last administered on 04/22/17 09:00; Admin Dose 81 MG; Start 04/19/17 at 09:00 Carvedilol (Coreg) 3.125 mg BID PO Last administered on 04/22/17 09:01; Admin Dose 3.125 MG; Start 04/18/17 at 21:00 Folic Acid (Folic Acid) 1 mg DAILY PO Last administered on 04/22/17 09:00; Admin Dose 1 MG; Start 04/19/17 at 09:00 Insulin Glargine (Lantus) 20 unit QHS SC Last administered on 04/21/17 20:24; Admin Dose 20 UNIT; Start 04/18/17 at 21:00 Losartan Potassium (Cozaar) 50 mg DAILY PO Last administered on 04/22/17 09:01 ; Admin Dose 50 MG; Start 04/19/17 at 09:00 Ticagrelor (Brilinta) 90 mg BID PO Last administered on 04/22/17 09:05; Admin Dose 90 MG; Start 04/18/17 at 21:00 Atorvastatin Calcium (Lipitor) 20 mg DAILY@21 PO Last administered on 20:14; Admin Dose 20 MG; Start 04/18/17 at 21:00 Diagnostic Test (Pha) (Accu-Chek) 1 ea 02 XX Last administered on 04/21/17 02: 06; Admin Dose 1 EA; Start 04/19/17 at 02:00 Miscellaneous Information 1 ea NOTE XX ; Start 04/18/17 at 17:00 Glucose (Glutose) 15 gm Q15M PRN PO DECREASED GLUCOSE; Start 04/18/17 at 17:00 Glucose (Glutose) 22.5 gm Q15M PRN PO DECREASED GLUCOSE; Start 04/18/17 at 17: 00 Dextrose (D50w Syringe) 25 ml Q15M PRN IV DECREASED GLUCOSE; Start 04/18/17 at 17:00 Dextrose (D50w Syringe) 50 ml Q15M PRN IV DECREASED GLUCOSE; Start 04/18/17 at 17:00 Glucagon (Glucagen) 1 mg Q15M PRN IM DECREASED GLUCOSE; Start 04/18/17 at 17: 00 Glucose (Glutose) 15 gm Q15M PRN BUCCAL DECREASED GLUCOSE; Start 04/18/17 at 17:00 Acetaminophen (Tylenol Tab) 650 mg Q6H PRN PO PAIN AND OR ELEVATED TEMP Last administered on 04/18/17 22:07; Admin Dose 650 MG; Start 04/18/17 at 22:00 Levofloxacin (Levaquin) 750 mg Q48H PO ; Start 04/22/17 at 06:00; Stop 04/25/17 at 05:59 Heparin Sodium (Porcine) 5000 unit 5,000 unit BID SC Last administered on 09:05; Admin Dose 5,000 UNIT; Start 04/20/17 at 21:00 Ferric Sodium Gluconate Complex/ Sodium Chloride (Ferrlecit/NS) 110 ml @ 110 mls/hr Q24H IVPB Last administered on 04/22/17 12:04; Admin Dose 110 MLS/HR; Start 04/21/17 at 13:00; Stop 04/25/17 at 13:59 Spironolactone (Aldactone) 12.5 mg DAILY PO Last administered on 04/22/17t 09: 00; Admin Dose 12.5 MG; Start 04/22/17 at 09:00 SANTOSH GENTILE MD Apr 22, 2017 13:46
[2017-04-22] MEDS ORDERED: POTASSIUM CHLORIDE (SR) 20 MEQ TAB PO STA (15:30)
--- NOTE | 2017-04-22 15:31 | CONS ---
Date/Time of Note Date/Time of Note DATE: 04/22/17 TIME: 15:30 Assessment/Plan Assessment/Plan Additional Assessment/Plan 1. 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 Congestive heart failure, acute on chronic, systolic, 2. Dilated cardiomyopathy with AVR 3. CAD, s/p PCI/stent, 4. Pneumonia, on levaquin 5. HTN, controlled 5. AICD, stable 6. s/p TAVR, Plan; Cr bumped to 2,57, Na trending up, HCO3 30 will decrease lasix to 20mg IV daily Previously pt had a CKD work up done, no need to repeat it stop losartan will follow up Cr in AM Consultation Date/Type/Reason Admit Date/Time Apr 18, 2017 at 09:11 Date of Consultation: Apr 22, 2017 Type of Consultation: NEPHROLOGY Reason for Consultation acute kidney injury vs Acute kidney injury on CKD Referring Provider: GRAY RUIZ MD Psychological: no complaints Past Surgical History Past Surgical Hx: angioplasty Social History Smoking Status: Never smoker Exam/Review of Systems Vital Signs Vitals Vital Signs Date Time Temp Pulse Resp B/P Pulse Ox O2 Delivery O2 Flow Rate FiO2 04/22/17 13:11 82 04/22/17 11:54 98.4 18 112/64 99 04/22/17 08:10 Nasal Cannula 2.0 Intake and Output 04/21/17 04/21/17 04/22/17 15:00 23:00 07:00 Intake Total 750 ml 300 ml Output Total 900 ml Balance -150 ml 300 ml Exam Constitutional: alert Respiratory: crackles/rales, diminished breath sounds Cardiovascular: nl pulses, regular rate and rhythm Gastrointestinal: non-tender, soft Musculoskeletal: muscle weakness, nl extremities to inspection, swelling Extremities: normal pulses Neurological: WATER REGULATOR AND [employer] REPAIRER II-XII intact, nl mental status, nl speech, nl strength Results Result Diagram: 04/22/17 0810 04/22/17 0810 Results 24 hrs Laboratory Tests Test 04/21/17 17:22 04/21/17 20:12 04/22/17 08:10 04/22/17 08:54 Bedside Glucose 119 148 135 White Blood Count 4.7 #L Red Blood Count 3.67 L Hemoglobin 9.5 L Hematocrit 29.3 L Mean Corpuscular Volume 79.8 L Mean Corpuscular Hemoglobin 25.9 L Mean Corpuscular Hemoglobin Concent 32.4 Red Cell Distribution Width 16.7 H Platelet Count 198 # Mean Platelet Volume 10.7 H Neutrophils % 54.8 Lymphocytes % 33.1 Monocytes % 6.9 Eosinophils % 2.4 Basophils % 0.2 Nucleated Red Blood Cells % 0.0 Neutrophils # 2.6 Lymphocytes # 1.5 Monocytes # 0.3 Eosinophils # 0.1 Basophils # 0.0 Nucleated Red Blood Cells # 0.0 Sodium Level 146 H Potassium Level 3.2 L Chloride Level 103 Carbon Dioxide Level 31 Anion Gap 15 Blood Urea Nitrogen 35 H Creatinine 1.92 H Glucose Level 71 Calcium Level 9.6 Total Bilirubin 0.4 Direct Bilirubin 0.00 Indirect Bilirubin 0.4 Aspartate Amino Transf (AST/SGOT) 259 H Alanine Aminotransferase (ALT/SGPT) 217 H Alkaline Phosphatase 280 H Total Protein 8.2 H Albumin 4.0 Globulin 4.20 H Albumin/Globulin Ratio 0.95 Test 04/22/17 12:00 Bedside Glucose 147 Medications Medications Current Medications Acetaminophen/ Hydrocodone Bitart ([place] (5/325)) 1 tab Q6H PRN PO PAIN LEVEL 4 -6; Start 04/18/17 at 17:00 Morphine Sulfate (morphine) 2 mg Q4H PRN IV PAIN LEVEL 7-10; Start 04/18/17 at 17:00 Docusate Sodium (Colace) 100 mg Q12H PRN PO CONSTIPATION; Start 04/18/17 at 17 :00 Magnesium Hydroxide (Milk Of Mag) 30 ml DAILY PRN PO CONSTIPATION; Start 04/18 at 17:00 Allopurinol (Zyloprim) 100 mg DAILY PO Last administered on 04/22/17 09:00; Admin Dose 100 MG; Start 04/19/17 at 09:00 Aspirin (Aspirin) 81 mg DAILY PO Last administered on 04/22/17 09:00; Admin Dose 81 MG; Start 04/19/17 at 09:00 Carvedilol (Coreg) 3.125 mg BID PO Last administered on 04/22/17 09:01; Admin Dose 3.125 MG; Start 04/18/17 at 21:00 Folic Acid (Folic Acid) 1 mg DAILY PO Last administered on 04/22/17 09:00; Admin Dose 1 MG; Start 04/19/17 at 09:00 Insulin Glargine (Lantus) 20 unit QHS SC Last administered on 04/21/17 20:24; Admin Dose 20 UNIT; Start 04/18/17 at 21:00 Losartan Potassium (Cozaar) 50 mg DAILY PO Last administered on 04/22/17 09:01 ; Admin Dose 50 MG; Start 04/19/17 at 09:00 Ticagrelor (Brilinta) 90 mg BID PO Last administered on 04/22/17 09:05; Admin Dose 90 MG; Start 04/18/17 at 21:00 Atorvastatin Calcium (Lipitor) 20 mg DAILY@21 PO Last administered on 20:14; Admin Dose 20 MG; Start 04/18/17 at 21:00 Diagnostic Test (Pha) (Accu-Chek) 1 ea 02 XX Last administered on 04/21/17 02: 06; Admin Dose 1 EA; Start 04/19/17 at 02:00 Miscellaneous Information 1 ea NOTE XX ; Start 04/18/17 at 17:00 Glucose (Glutose) 15 gm Q15M PRN PO DECREASED GLUCOSE; Start 04/18/17 at 17:00 Glucose (Glutose) 22.5 gm Q15M PRN PO DECREASED GLUCOSE; Start 04/18/17 at 17: 00 Dextrose (D50w Syringe) 25 ml Q15M PRN IV DECREASED GLUCOSE; Start 04/18/17 at 17:00 Dextrose (D50w Syringe) 50 ml Q15M PRN IV DECREASED GLUCOSE; Start 04/18/17 at 17:00 Glucagon (Glucagen) 1 mg Q15M PRN IM DECREASED GLUCOSE; Start 04/18/17 at 17: 00 Glucose (Glutose) 15 gm Q15M PRN BUCCAL DECREASED GLUCOSE; Start 04/18/17 at 17:00 Acetaminophen (Tylenol Tab) 650 mg Q6H PRN PO PAIN AND OR ELEVATED TEMP Last administered on 04/18/17 22:07; Admin Dose 650 MG; Start 04/18/17 at 22:00 Heparin Sodium (Porcine) 5000 unit 5,000 unit BID SC Last administered on 09:05; Admin Dose 5,000 UNIT; Start 04/20/17 at 21:00 Ferric Sodium Gluconate Complex/ Sodium Chloride (Ferrlecit/NS) 110 ml @ 110 mls/hr Q24H IVPB Last administered on 04/22/17 12:04; Admin Dose 110 MLS/HR; Start 04/21/17 at 13:00; Stop 04/25/17 at 13:59 Spironolactone (Aldactone) 12.5 mg DAILY PO Last administered on 04/22/17 09: 00; Admin Dose 12.5 MG; Start 04/22/17 at 09:00 WALDO ALDANA MD Apr 22, 2017 15:31
[2017-04-22] MEDS: POTASSIUM CHLORIDE (SR) 20 MEQ TAB PO SCH (21:47)
[2017-04-22] MEDS: ATORVASTATIN 20 MG TAB PO SCH (21:47)
[2017-04-22] MEDS: INSULIN GLARGINE [LANtus] 3 ML PEN SC SCH (21:54)
[2017-04-23] VITALS (12 sets, daily range): BP systolic 105–132; BP diastolic 53–75; PULSE 74–91; RESP 17–18
[2017-04-23] MEDS: ACCU-CHEK XX SCH (02:00)
[2017-04-23] MEDS: LEVOTHYROXINE 88 MCG TAB PO SCH (06:21)
[2017-04-23] MEDS: FUROSEMIDE 20 MG INJ IV SCH (06:22)
[2017-04-23] MEDS: INSULIN ASPART [NOVOLOG] 3 ML PEN SC SCH ×4 (08:00→21:00)
[2017-04-23] MEDS: ALLOPURINOL 100 MG TAB PO SCH (09:05)
[2017-04-23] MEDS: SPIRONOLACTONE 25 MG TAB PO SCH (09:05)
[2017-04-23] MEDS: ASPIRIN 81 MG TAB PO SCH (09:05)
[2017-04-23] MEDS: FOLIC ACID 1 MG TAB PO SCH (09:06)
[2017-04-23] MEDS: POTASSIUM CHLORIDE (SR) 20 MEQ TAB PO SCH ×2 (09:06→22:14)
[2017-04-23] MEDS: LOSARTAN 50 MG TAB PO SCH (09:06)
[2017-04-23] MEDS: TICAGRELOR 90 MG TABLET PO SCH ×2 (09:08→22:16)
[2017-04-23] MEDS: HEPARIN 5,000 UNIT/0.5 ML VIAL SC SCH ×2 (09:15→22:17)
--- NOTE | 2017-04-23 12:28 | PN ---
Date/Time of Note Date/Time of Note DATE: 04/23/17 TIME: 12:27 Assessment/Plan VTE Prophylaxis VTE Prophylaxis Intervention: SCD's Lines/Catheters IV Catheter Type (from Nrsg): Saline Lock Urinary Cath still in place: No Assessment/Plan Assessment/Plan 82 yo M with pmhx chronic systolic HF with last TTE 25-30% at the end of January here with 2w of cough, SOB and crackles, resolved with short course of increased dieretic. PLAN BID IV lasix (equivalent to home PO dose) pt already has AICD placed for primary prevention of SCD given his CHF No compelling indication to repeat TTE at this time as pt's supervisor speech already knows abt pt's low EF cont bp meds, DAPT, DM meds, statin big Cr bump noted, will stop aldactone CM ref for HH will need outpatient cards and renal f/u Subjective 24 Hr Interval Summary Free Text/Dictation doesnt feel ready to go home just yet Exam/Review of Systems Vital Signs Vitals Vital Signs Date Time Temp Pulse Resp B/P Pulse Ox O2 Delivery O2 Flow Rate FiO2 04/23/17 11:52 98.1 80 17 131/75 99 04/23/17 07:45 Nasal Cannula 2.0 Intake and Output 04/22/17 04/22/17 04/23/17 15:00 23:00 07:00 Intake Total 960 ml 380 ml Output Total 800 ml Balance 160 ml 380 ml Exam nad resp nonlabored abd soft no rashes no edema Cr 2.5 Results Result Diagram: 04/22/17 0810 04/23/17 0749 Results 24 hrs Laboratory Tests Test 04/22/17 16:56 04/22/17 21:45 04/23/17 07:49 04/23/17 09:04 Bedside Glucose 154 136 138 Sodium Level 145 H Potassium Level 4.5 Chloride Level 104 Carbon Dioxide Level 30 Anion Gap 16 Blood Urea Nitrogen 46 #H Creatinine 2.57 H Glucose Level 93 Calcium Level 9.7 Magnesium Level 2.3 Medications Medications Current Medications Acetaminophen/ Hydrocodone Bitart ([place] (5/325)) 1 tab Q6H PRN PO PAIN LEVEL 4 -6; Start 04/18/17 at 17:00 Morphine Sulfate (morphine) 2 mg Q4H PRN IV PAIN LEVEL 7-10; Start 04/18/17 at 17:00 Docusate Sodium (Colace) 100 mg Q12H PRN PO CONSTIPATION; Start 04/18/17 at 17 :00 Magnesium Hydroxide (Milk Of Mag) 30 ml DAILY PRN PO CONSTIPATION; Start 04/18 at 17:00 Allopurinol (Zyloprim) 100 mg DAILY PO Last administered on 04/23/17 09:05; Admin Dose 100 MG; Start 04/19/17 at 09:00 Aspirin (Aspirin) 81 mg DAILY PO Last administered on 04/23/17 09:05; Admin Dose 81 MG; Start 04/19/17 at 09:00 Carvedilol (Coreg) 3.125 mg BID PO Last administered on 04/23/17 09:07; Admin Dose 3.125 MG; Start 04/18/17 at 21:00 Folic Acid (Folic Acid) 1 mg DAILY PO Last administered on 04/23/17 09:06; Admin Dose 1 MG; Start 04/19/17 at 09:00 Insulin Glargine (Lantus) 20 unit QHS SC Last administered on 04/22/17 21:54; Admin Dose 20 UNIT; Start 04/18/17 at 21:00 Losartan Potassium (Cozaar) 50 mg DAILY PO Last administered on 04/23/17 09:06 ; Admin Dose 50 MG; Start 04/19/17 at 09:00 Ticagrelor (Brilinta) 90 mg BID PO Last administered on 04/23/17 09:08; Admin Dose 90 MG; Start 04/18/17 at 21:00 Atorvastatin Calcium (Lipitor) 20 mg DAILY@21 PO Last administered on 21:47; Admin Dose 20 MG; Start 04/18/17 at 21:00 Diagnostic Test (Pha) (Accu-Chek) 1 ea 02 XX Last administered on 04/21/17 02: 06; Admin Dose 1 EA; Start 04/19/17 at 02:00 Miscellaneous Information 1 ea NOTE XX ; Start 04/18/17 at 17:00 Glucose (Glutose) 15 gm Q15M PRN PO DECREASED GLUCOSE; Start 04/18/17 at 17:00 Glucose (Glutose) 22.5 gm Q15M PRN PO DECREASED GLUCOSE; Start 04/18/17 at 17: 00 Dextrose (D50w Syringe) 25 ml Q15M PRN IV DECREASED GLUCOSE; Start 04/18/17 at 17:00 Dextrose (D50w Syringe) 50 ml Q15M PRN IV DECREASED GLUCOSE; Start 04/18/17 at 17:00 Glucagon (Glucagen) 1 mg Q15M PRN IM DECREASED GLUCOSE; Start 04/18/17 at 17: 00 Glucose (Glutose) 15 gm Q15M PRN BUCCAL DECREASED GLUCOSE; Start 04/18/17 at 17:00 Acetaminophen (Tylenol Tab) 650 mg Q6H PRN PO PAIN AND OR ELEVATED TEMP Last administered on 04/18/17 22:07; Admin Dose 650 MG; Start 04/18/17 at 22:00 Heparin Sodium (Porcine) 5000 unit 5,000 unit BID SC Last administered on 09:15; Admin Dose 5,000 UNIT; Start 04/20/17 at 21:00 Ferric Sodium Gluconate Complex/ Sodium Chloride (Ferrlecit/NS) 110 ml @ 110 mls/hr Q24H IVPB Last administered on 04/22/17 12:04; Admin Dose 110 MLS/HR; Start 04/21/17 at 13:00; Stop 04/25/17 at 13:59 Spironolactone (Aldactone) 12.5 mg DAILY PO Last administered on 04/23/17 09: 05; Admin Dose 12.5 MG; Start 04/22/17 at 09:00 Potassium Chloride (Klor-Con 20) 20 meq BID PO Last administered on 04/23/17 09:06; Admin Dose 20 MEQ; Start 04/22/17 at 21:00 SANTOSH GENTILE MD Apr 23, 2017 12:28
[2017-04-23] MEDS: SOD FERRIC GLUC COMPLX 125 MG in SOD CHLORIDE 0.9% 100 ML IVPB SCH (12:43)
--- NOTE | 2017-04-23 14:22 | CONS ---
Date/Time of Note Date/Time of Note DATE: 04/23/17 TIME: 14:18 Assessment/Plan Assessment/Plan Additional Assessment/Plan Congestive Heart Failure Cardiomyopathy s/p AICD HTN S/p TAVR Renal failure Hypothyroidism Hemodynamically stable Hold Lasix Continue Coreg Continue Brilinta Hold Losartan Continue Insulin Continue Lipitor Continue Levothyroxine Consultation Date/Type/Reason Admit Date/Time Apr 18, 2017 at 09:11 Psychological: no complaints Past Surgical History Past Surgical Hx: angioplasty Social History Smoking Status: Never smoker Exam/Review of Systems Vital Signs Vitals Vital Signs Date Time Temp Pulse Resp B/P Pulse Ox O2 Delivery O2 Flow Rate FiO2 04/23/17 12:10 75 04/23/17 11:52 98.1 17 131/75 99 04/23/17 07:45 Nasal Cannula 2.0 Intake and Output 04/22/17 04/22/17 04/23/17 15:00 23:00 07:00 Intake Total 960 ml 380 ml Output Total 800 ml Balance 160 ml 380 ml Exam Constitutional: alert, oriented Head: atraumatic, normocephalic Neck: non-tender, supple Respiratory: diminished breath sounds Cardiovascular: regular rate and rhythm Gastrointestinal: nl liver, spleen, non-tender, soft Extremities: normal pulses Results Result Diagram: 04/22/17 0810 04/23/17 0749 Results 24 hrs Laboratory Tests Test 04/22/17 16:56 04/22/17 21:45 04/23/17 07:49 04/23/17 09:04 Bedside Glucose 154 136 138 Sodium Level 145 H Potassium Level 4.5 Chloride Level 104 Carbon Dioxide Level 30 Anion Gap 16 Blood Urea Nitrogen 46 #H Creatinine 2.57 H Glucose Level 93 Calcium Level 9.7 Magnesium Level 2.3 Test 04/23/17 12:44 Bedside Glucose 113 Medications Medications Current Medications Acetaminophen/ Hydrocodone Bitart ([place] (5/325)) 1 tab Q6H PRN PO PAIN LEVEL 4 -6; Start 04/18/17 at 17:00 Morphine Sulfate (morphine) 2 mg Q4H PRN IV PAIN LEVEL 7-10; Start 04/18/17 at 17:00 Docusate Sodium (Colace) 100 mg Q12H PRN PO CONSTIPATION; Start 04/18/17 at 17 :00 Magnesium Hydroxide (Milk Of Mag) 30 ml DAILY PRN PO CONSTIPATION; Start 04/18 at 17:00 Allopurinol (Zyloprim) 100 mg DAILY PO Last administered on 04/23/17 09:05; Admin Dose 100 MG; Start 04/19/17 at 09:00 Aspirin (Aspirin) 81 mg DAILY PO Last administered on 04/23/17 09:05; Admin Dose 81 MG; Start 04/19/17 at 09:00 Carvedilol (Coreg) 3.125 mg BID PO Last administered on 04/23/17 09:07; Admin Dose 3.125 MG; Start 04/18/17 at 21:00 Folic Acid (Folic Acid) 1 mg DAILY PO Last administered on 04/23/17 09:06; Admin Dose 1 MG; Start 04/19/17 at 09:00 Insulin Glargine (Lantus) 20 unit QHS SC Last administered on 04/22/17 21:54; Admin Dose 20 UNIT; Start 04/18/17 at 21:00 Losartan Potassium (Cozaar) 50 mg DAILY PO Last administered on 04/23/17 09:06 ; Admin Dose 50 MG; Start 04/19/17 at 09:00 Ticagrelor (Brilinta) 90 mg BID PO Last administered on 04/23/17 09:08; Admin Dose 90 MG; Start 04/18/17 at 21:00 Atorvastatin Calcium (Lipitor) 20 mg DAILY@21 PO Last administered on 21:47; Admin Dose 20 MG; Start 04/18/17 at 21:00 Diagnostic Test (Pha) (Accu-Chek) 1 ea 02 XX Last administered on 04/21/17 02: 06; Admin Dose 1 EA; Start 04/19/17 at 02:00 Miscellaneous Information 1 ea NOTE XX ; Start 04/18/17 at 17:00 Glucose (Glutose) 15 gm Q15M PRN PO DECREASED GLUCOSE; Start 04/18/17 at 17:00 Glucose (Glutose) 22.5 gm Q15M PRN PO DECREASED GLUCOSE; Start 04/18/17 at 17: 00 Dextrose (D50w Syringe) 25 ml Q15M PRN IV DECREASED GLUCOSE; Start 04/18/17 at 17:00 Dextrose (D50w Syringe) 50 ml Q15M PRN IV DECREASED GLUCOSE; Start 04/18/17 at 17:00 Glucagon (Glucagen) 1 mg Q15M PRN IM DECREASED GLUCOSE; Start 04/18/17 at 17: 00 Glucose (Glutose) 15 gm Q15M PRN BUCCAL DECREASED GLUCOSE; Start 04/18/17 at 17:00 Acetaminophen (Tylenol Tab) 650 mg Q6H PRN PO PAIN AND OR ELEVATED TEMP Last administered on 04/18/17 22:07; Admin Dose 650 MG; Start 04/18/17 at 22:00 Heparin Sodium (Porcine) 5000 unit 5,000 unit BID SC Last administered on 09:15; Admin Dose 5,000 UNIT; Start 04/20/17 at 21:00 Ferric Sodium Gluconate Complex/ Sodium Chloride (Ferrlecit/NS) 110 ml @ 110 mls/hr Q24H IVPB Last administered on 04/23/17 12:43; Admin Dose 110 MLS/HR; Start 04/21/17 at 13:00; Stop 04/25/17 at 13:59 Potassium Chloride (Klor-Con 20) 20 meq BID PO Last administered on 04/23/17 09:06; Admin Dose 20 MEQ; Start 04/22/17 at 21:00 ROSA HAY M.D. Apr 23, 2017 14:22
--- NOTE | 2017-04-23 17:06 | CONS ---
Date/Time of Note Date/Time of Note DATE: 04/23/17 TIME: 17:02 Assessment/Plan Assessment/Plan Additional Assessment/Plan 1. 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 Congestive heart failure, acute on chronic, systolic, 2. Dilated cardiomyopathy with AVR 3. CAD, s/p PCI/stent, 4. Pneumonia, on levaquin 5. HTN, controlled 5. AICD, stable 6. s/p TAVR, Plan; Cr bumped to 2,57, Na trending up, HCO3 30 will decrease lasix to 20mg IV daily Previously pt had a CKD work up done, no need to repeat it hold losartan for now will follow up Cr in AM Consultation Date/Type/Reason Admit Date/Time Apr 18, 2017 at 09:11 Initial Consult Date 04/22/17 Type of Consultation: NEPHROLOGY Referring Provider: GRAY RUIZ MD 24 HR Interval Summary Free Text/Dictation Cr bumped to 2.57, on IV lasix for diuresis, Cardiology following Exam/Review of Systems Vital Signs Vitals Vital Signs Date Time Temp Pulse Resp B/P Pulse Ox O2 Delivery O2 Flow Rate FiO2 04/23/17 15:58 98.1 81 17 113/57 98 04/23/17 07:45 Nasal Cannula 2.0 Intake and Output 04/22/17 04/22/17 04/23/17 15:00 23:00 07:00 Intake Total 960 ml 380 ml Output Total 800 ml Balance 160 ml 380 ml Exam Constitutional: alert Respiratory: crackles/rales, diminished breath sounds Cardiovascular: nl pulses, regular rate and rhythm Gastrointestinal: non-tender, soft Musculoskeletal: muscle weakness, nl extremities to inspection, swelling Extremities: normal pulses 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, nl mental status, nl speech, nl strength Results Result Diagram: 04/22/17 0810 04/23/17 0749 Results 24 hrs Laboratory Tests Test 04/22/17 21:45 04/23/17 07:49 04/23/17 09:04 04/23/17 12:44 Bedside Glucose 136 138 113 Sodium Level 145 H Potassium Level 4.5 Chloride Level 104 Carbon Dioxide Level 30 Anion Gap 16 Blood Urea Nitrogen 46 #H Creatinine 2.57 H Glucose Level 93 Calcium Level 9.7 Magnesium Level 2.3 Medications Medications Current Medications Acetaminophen/ Hydrocodone Bitart ([place] (5/325)) 1 tab Q6H PRN PO PAIN LEVEL 4 -6; Start 04/18/17 at 17:00 Morphine Sulfate (morphine) 2 mg Q4H PRN IV PAIN LEVEL 7-10; Start 04/18/17 at 17:00 Docusate Sodium (Colace) 100 mg Q12H PRN PO CONSTIPATION; Start 04/18/17 at 17 :00 Magnesium Hydroxide (Milk Of Mag) 30 ml DAILY PRN PO CONSTIPATION; Start 04/18 at 17:00 Allopurinol (Zyloprim) 100 mg DAILY PO Last administered on 04/23/17 09:05; Admin Dose 100 MG; Start 04/19/17 at 09:00 Aspirin (Aspirin) 81 mg DAILY PO Last administered on 04/23/17 09:05; Admin Dose 81 MG; Start 04/19/17 at 09:00 Carvedilol (Coreg) 3.125 mg BID PO Last administered on 04/23/17 09:07; Admin Dose 3.125 MG; Start 04/18/17 at 21:00 Folic Acid (Folic Acid) 1 mg DAILY PO Last administered on 04/23/17 09:06; Admin Dose 1 MG; Start 04/19/17 at 09:00 Insulin Glargine (Lantus) 20 unit QHS SC Last administered on 04/22/17 21:54; Admin Dose 20 UNIT; Start 04/18/17 at 21:00 Losartan Potassium (Cozaar) 50 mg DAILY PO Last administered on 04/23/17 09:06 ; Admin Dose 50 MG; Start 04/19/17 at 09:00 Ticagrelor (Brilinta) 90 mg BID PO Last administered on 04/23/17 09:08; Admin Dose 90 MG; Start 04/18/17 at 21:00 Atorvastatin Calcium (Lipitor) 20 mg DAILY@21 PO Last administered on 21:47; Admin Dose 20 MG; Start 04/18/17 at 21:00 Diagnostic Test (Pha) (Accu-Chek) 1 ea 02 XX Last administered on 04/21/17 02: 06; Admin Dose 1 EA; Start 04/19/17 at 02:00 Miscellaneous Information 1 ea NOTE XX ; Start 04/18/17 at 17:00 Glucose (Glutose) 15 gm Q15M PRN PO DECREASED GLUCOSE; Start 04/18/17 at 17:00 Glucose (Glutose) 22.5 gm Q15M PRN PO DECREASED GLUCOSE; Start 04/18/17 at 17: 00 Dextrose (D50w Syringe) 25 ml Q15M PRN IV DECREASED GLUCOSE; Start 04/18/17 at 17:00 Dextrose (D50w Syringe) 50 ml Q15M PRN IV DECREASED GLUCOSE; Start 04/18/17 at 17:00 Glucagon (Glucagen) 1 mg Q15M PRN IM DECREASED GLUCOSE; Start 04/18/17 at 17: 00 Glucose (Glutose) 15 gm Q15M PRN BUCCAL DECREASED GLUCOSE; Start 04/18/17 at 17:00 Acetaminophen (Tylenol Tab) 650 mg Q6H PRN PO PAIN AND OR ELEVATED TEMP Last administered on 04/18/17 22:07; Admin Dose 650 MG; Start 04/18/17 at 22:00 Heparin Sodium (Porcine) 5000 unit 5,000 unit BID SC Last administered on 09:15; Admin Dose 5,000 UNIT; Start 04/20/17 at 21:00 Ferric Sodium Gluconate Complex/ Sodium Chloride (Ferrlecit/NS) 110 ml @ 110 mls/hr Q24H IVPB Last administered on 04/23/17 12:43; Admin Dose 110 MLS/HR; Start 04/21/17 at 13:00; Stop 04/25/17 at 13:59 Potassium Chloride (Klor-Con 20) 20 meq BID PO Last administered on 04/23/17 09:06; Admin Dose 20 MEQ; Start 04/22/17 at 21:00 WALDO ALDANA MD Apr 23, 2017 17:06
[2017-04-23] MEDS: ATORVASTATIN 20 MG TAB PO SCH (22:14)
[2017-04-23] MEDS: INSULIN GLARGINE [LANtus] 3 ML PEN SC SCH (22:18)
[2017-04-24] VITALS (7 sets, daily range): BP systolic 110–116; BP diastolic 54–62; PULSE 60–78; RESP 17–18
[2017-04-24] MEDS: ACCU-CHEK XX SCH (02:00)
[2017-04-24] MEDS: LEVOTHYROXINE 88 MCG TAB PO SCH (06:46)
[2017-04-24] MEDS: INSULIN ASPART [NOVOLOG] 3 ML PEN SC SCH ×2 (08:00→12:00)
[2017-04-24] MEDS: POTASSIUM CHLORIDE (SR) 20 MEQ TAB PO SCH (08:58)
[2017-04-24] MEDS: ASPIRIN 81 MG TAB PO SCH (08:58)
[2017-04-24] MEDS: ALLOPURINOL 100 MG TAB PO SCH (08:58)
[2017-04-24] MEDS: FOLIC ACID 1 MG TAB PO SCH (08:58)
[2017-04-24] MEDS ORDERED: FUROSEMIDE 20 MG INJ IV SCH (09:00)
[2017-04-24] MEDS: TICAGRELOR 90 MG TABLET PO SCH (09:02)
[2017-04-24] MEDS: HEPARIN 5,000 UNIT/0.5 ML VIAL SC SCH (09:02)
--- NOTE | 2017-04-24 10:03 | PDOCDIS ---
Discharge Instructions CONDITION Patient Condition: Stable HOME CARE INSTRUCTIONS: Special Diet: LOW FAT/ LOW CHOLESTEROL DIET FOLLOW UP/APPOINTMENTS Follow-up Plan follow up with Dr Flores and Dr Lin this week Dr Flores Office Address [address] [place] [address] Lin Office Address [address] [address] Office SANTOSH GENTILE MD Apr 24, 2017 10:03
--- NOTE | 2017-04-24 10:03 | PDOCDIS ---
Discharge Instructions CONDITION Patient Condition: Stable HOME CARE INSTRUCTIONS: Special Diet: LOW FAT/ LOW CHOLESTEROL DIET FOLLOW UP/APPOINTMENTS Follow-up Plan follow up with Dr Flores and Dr Lin this week Dr Flores Office Address [address] [place] [address] Lin Office Address [address] [address] Office SANTOSH GENTILE MD Apr 24, 2017 10:03
--- NOTE | 2017-04-24 10:03 | PDOCDIS ---
Discharge Instructions CONDITION Patient Condition: Stable HOME CARE INSTRUCTIONS: Special Diet: LOW FAT/ LOW CHOLESTEROL DIET FOLLOW UP/APPOINTMENTS Follow-up Plan follow up with Dr Flores and Dr Lin this week Dr Flores Office Address [address] [place] [address] Lin Office Address [address] [address] Office SANTOSH GENTILE MD Apr 24, 2017 10:03
--- NOTE | 2017-04-24 10:13 | DS ---
Date/Time of Note Date/Time of Note DATE: 04/24/17 TIME: 10:04 Discharge Summary Admission/Discharge Info Admit Date/Time Apr 18, 2017 at 09:11 Discharge Date/Time Discharge Diagnosis acute on chronic systolic heart failure, KEN on CKD Patient Condition: Stable Consults cardiology, nephrology Procedures 10.30 CXR IMPRESSION: Mild cardiomegaly. Mild pulmonary vascular congestion. Slightly more focal right lower lobe infiltrate. Calcified aorta consistent with atherosclerotic disease. 04.18 BNP 5200 11.1 CXR IMPRESSION: 1. Mild cardiomegaly. No acute intrathoracic abnormality . Cr 1.72 on admission, 2.73 on discharge Hx of Present Illness CC SOB HPI 82 yo M with pmhx chronic systolic HF admitted for 2 weeks of nonproductive cough, progressive SOB. Pt denies fevers, chills, or leg swelling. Of note, pt admitted last month for acute on chronic systolic HF. Discharge weight was 64 kg and his admit weight here is 3 kg heavier. 10p ROS as per HPI Hospital Course 82 yo M with pmhx chronic systolic HF with last TTE 25-30% at the end of January admitted for 2w of cough, SOB and crackles, resolved with short course of increased dieretic. Pt was negative 2L at time of discharge. Hospitalization notable for KEN on CKD. ARB was held. Pt unable to tolerate aldactone 2/2 Cr bump. His DAPT/statin/DM regimen were unchanged, as was the rest of his BP regimen. HH arranged. Will need renal and cards f/u Home Meds Active Scripts Carvedilol* (Carvedilol*) 3.125 Mg Tablet, 3.125 MG PO BID for 30 Days, #60 TAB Prov:SANTOSH GENTILE MD 03/11/17 Furosemide* (Furosemide*) 40 Mg Tablet, 40 MG PO BID for 30 Days, #60 TAB Prov:SANTOSH GENTILE MD 03/11/17 Ticagrelor* (Brilinta*) 90 Mg Tablet, 90 MG PO BID for 30 Days, #60 TAB Prov:SANTOSH GENTILE MD 02/27/17 Reported Medications Losartan Potassium* (Losartan Potassium*) 50 Mg Tablet, 50 MG PO DAILY, TAB 02/15/17 Insulin Glargine* (Lantus*) 100 Unit/Ml Soln, 20 UNIT SC QHS, #1 VIAL 02/15/17 Folic Acid* (Folic Acid*) 1 Mg Tablet, 1 MG PO DAILY, TAB 05/27/16 Simvastatin* (Zocor*) 40 Mg Tablet, 40 MG PO QHS, #30 TAB 05/27/16 Aspirin* (Aspirin* Chew) 81 Mg Tab.chew, 81 MG PO DAILY, TAB.CHEW 05/27/16 Metformin* (Glucophage*) 1,000 Mg Tablet, 1000 MG PO BID, #60 TAB 05/06/16 Allopurinol* (Allopurinol*) 100 Mg Tablet, 100 MG PO DAILY, TAB 05/06/16 Levothyroxine Sodium* (Levothyroxine Sodium*) 88 Mcg Tablet, 88 MCG PO BEFORE BREAKFAST, #30 TAB 05/06/16 Follow-up Plan follow up with Dr Flores and Dr Lin this week Dr Flores Office Address [address] [place] [address] Lin Office Address [address] [address] Office Primary Care Provider Not On Staff Doctor Pending Labs Laboratory Tests Test 04/23/17 12:44 04/23/17 17:16 04/23/17 22:12 04/24/17 07:50 Bedside Glucose 113mg/dL (70-220) 86mg/dL (70-220) 113mg/dL (70-220) Sodium Level 145mmol/L (135-144) Potassium Level 4.4mmol/L (3.5-5.1) Chloride Level 105mmol/L (97-110) Carbon Dioxide Level 27mmol/L (21-31) Anion Gap 17 (8-16) Blood Urea Nitrogen 48mg/dl (7-20) Creatinine 2.73mg/dl (0.61-1.24) Glucose Level 74mg/dl (70-220) Calcium Level 9.2mg/dl (8.4-10.2) Magnesium Level 2.5mg/dl (1.7-2.5) Test 04/24/17 08:57 Bedside Glucose 83mg/dL (70-220) Copies To: CC: ELEANOR FLORES; WALDO LIN MD, ELLEN MD Apr 24, 2017 10:13
--- NOTE | 2017-04-24 10:13 | DS ---
Date/Time of Note Date/Time of Note DATE: 04/24/17 TIME: 10:04 Discharge Summary Admission/Discharge Info Admit Date/Time Apr 18, 2017 at 09:11 Discharge Date/Time Discharge Diagnosis acute on chronic systolic heart failure, KEN on CKD Patient Condition: Stable Consults cardiology, nephrology Procedures 10.30 CXR IMPRESSION: Mild cardiomegaly. Mild pulmonary vascular congestion. Slightly more focal right lower lobe infiltrate. Calcified aorta consistent with atherosclerotic disease. 04.18 BNP 5200 11.1 CXR IMPRESSION: 1. Mild cardiomegaly. No acute intrathoracic abnormality . Cr 1.72 on admission, 2.73 on discharge Hx of Present Illness CC SOB HPI 82 yo M with pmhx chronic systolic HF admitted for 2 weeks of nonproductive cough, progressive SOB. Pt denies fevers, chills, or leg swelling. Of note, pt admitted last month for acute on chronic systolic HF. Discharge weight was 64 kg and his admit weight here is 3 kg heavier. 10p ROS as per HPI Hospital Course 82 yo M with pmhx chronic systolic HF with last TTE 25-30% at the end of January admitted for 2w of cough, SOB and crackles, resolved with short course of increased dieretic. Pt was negative 2L at time of discharge. Hospitalization notable for KEN on CKD. ARB was held. Pt unable to tolerate aldactone 2/2 Cr bump. His DAPT/statin/DM regimen were unchanged, as was the rest of his BP regimen. HH arranged. Will need renal and cards f/u Home Meds Active Scripts Carvedilol* (Carvedilol*) 3.125 Mg Tablet, 3.125 MG PO BID for 30 Days, #60 TAB Prov:SANTOSH GENTILE MD 03/11/17 Furosemide* (Furosemide*) 40 Mg Tablet, 40 MG PO BID for 30 Days, #60 TAB Prov:SANTOSH GENTILE MD 03/11/17 Ticagrelor* (Brilinta*) 90 Mg Tablet, 90 MG PO BID for 30 Days, #60 TAB Prov:SANTOSH GENTILE MD 02/27/17 Reported Medications Losartan Potassium* (Losartan Potassium*) 50 Mg Tablet, 50 MG PO DAILY, TAB 02/15/17 Insulin Glargine* (Lantus*) 100 Unit/Ml Soln, 20 UNIT SC QHS, #1 VIAL 02/15/17 Folic Acid* (Folic Acid*) 1 Mg Tablet, 1 MG PO DAILY, TAB 05/27/16 Simvastatin* (Zocor*) 40 Mg Tablet, 40 MG PO QHS, #30 TAB 05/27/16 Aspirin* (Aspirin* Chew) 81 Mg Tab.chew, 81 MG PO DAILY, TAB.CHEW 05/27/16 Metformin* (Glucophage*) 1,000 Mg Tablet, 1000 MG PO BID, #60 TAB 05/06/16 Allopurinol* (Allopurinol*) 100 Mg Tablet, 100 MG PO DAILY, TAB 05/06/16 Levothyroxine Sodium* (Levothyroxine Sodium*) 88 Mcg Tablet, 88 MCG PO BEFORE BREAKFAST, #30 TAB 05/06/16 Follow-up Plan follow up with Dr Flores and Dr Lin this week Dr Flores Office Address [address] [place] [address] Lin Office Address [address] [address] Office Primary Care Provider Not On Staff Doctor Pending Labs Laboratory Tests Test 04/23/17 12:44 04/23/17 17:16 04/23/17 22:12 04/24/17 07:50 Bedside Glucose 113mg/dL (70-220) 86mg/dL (70-220) 113mg/dL (70-220) Sodium Level 145mmol/L (135-144) Potassium Level 4.4mmol/L (3.5-5.1) Chloride Level 105mmol/L (97-110) Carbon Dioxide Level 27mmol/L (21-31) Anion Gap 17 (8-16) Blood Urea Nitrogen 48mg/dl (7-20) Creatinine 2.73mg/dl (0.61-1.24) Glucose Level 74mg/dl (70-220) Calcium Level 9.2mg/dl (8.4-10.2) Magnesium Level 2.5mg/dl (1.7-2.5) Test 04/24/17 08:57 Bedside Glucose 83mg/dL (70-220) Copies To: CC: ELEANOR FLORES; WALDO LIN MD, ELLEN MD Apr 24, 2017 10:13
--- NOTE | 2017-04-24 10:13 | DS ---
Date/Time of Note Date/Time of Note DATE: 04/24/17 TIME: 10:04 Discharge Summary Admission/Discharge Info Admit Date/Time Apr 18, 2017 at 09:11 Discharge Date/Time Discharge Diagnosis acute on chronic systolic heart failure, KEN on CKD Patient Condition: Stable Consults cardiology, nephrology Procedures 10.30 CXR IMPRESSION: Mild cardiomegaly. Mild pulmonary vascular congestion. Slightly more focal right lower lobe infiltrate. Calcified aorta consistent with atherosclerotic disease. 04.18 BNP 5200 11.1 CXR IMPRESSION: 1. Mild cardiomegaly. No acute intrathoracic abnormality . Cr 1.72 on admission, 2.73 on discharge Hx of Present Illness CC SOB HPI 82 yo M with pmhx chronic systolic HF admitted for 2 weeks of nonproductive cough, progressive SOB. Pt denies fevers, chills, or leg swelling. Of note, pt admitted last month for acute on chronic systolic HF. Discharge weight was 64 kg and his admit weight here is 3 kg heavier. 10p ROS as per HPI Hospital Course 82 yo M with pmhx chronic systolic HF with last TTE 25-30% at the end of January admitted for 2w of cough, SOB and crackles, resolved with short course of increased dieretic. Pt was negative 2L at time of discharge. Hospitalization notable for KEN on CKD. ARB was held. Pt unable to tolerate aldactone 2/2 Cr bump. His DAPT/statin/DM regimen were unchanged, as was the rest of his BP regimen. HH arranged. Will need renal and cards f/u Home Meds Active Scripts Carvedilol* (Carvedilol*) 3.125 Mg Tablet, 3.125 MG PO BID for 30 Days, #60 TAB Prov:SANTOSH GENTILE MD 03/11/17 Furosemide* (Furosemide*) 40 Mg Tablet, 40 MG PO BID for 30 Days, #60 TAB Prov:SANTOSH GENTILE MD 03/11/17 Ticagrelor* (Brilinta*) 90 Mg Tablet, 90 MG PO BID for 30 Days, #60 TAB Prov:SANTOSH GENTILE MD 02/27/17 Reported Medications Losartan Potassium* (Losartan Potassium*) 50 Mg Tablet, 50 MG PO DAILY, TAB 02/15/17 Insulin Glargine* (Lantus*) 100 Unit/Ml Soln, 20 UNIT SC QHS, #1 VIAL 02/15/17 Folic Acid* (Folic Acid*) 1 Mg Tablet, 1 MG PO DAILY, TAB 05/27/16 Simvastatin* (Zocor*) 40 Mg Tablet, 40 MG PO QHS, #30 TAB 05/27/16 Aspirin* (Aspirin* Chew) 81 Mg Tab.chew, 81 MG PO DAILY, TAB.CHEW 05/27/16 Metformin* (Glucophage*) 1,000 Mg Tablet, 1000 MG PO BID, #60 TAB 05/06/16 Allopurinol* (Allopurinol*) 100 Mg Tablet, 100 MG PO DAILY, TAB 05/06/16 Levothyroxine Sodium* (Levothyroxine Sodium*) 88 Mcg Tablet, 88 MCG PO BEFORE BREAKFAST, #30 TAB 05/06/16 Follow-up Plan follow up with Dr Flores and Dr Lin this week Dr Flores Office Address [address] [place] [address] Lin Office Address [address] [address] Office Primary Care Provider Not On Staff Doctor Pending Labs Laboratory Tests Test 04/23/17 12:44 04/23/17 17:16 04/23/17 22:12 04/24/17 07:50 Bedside Glucose 113mg/dL (70-220) 86mg/dL (70-220) 113mg/dL (70-220) Sodium Level 145mmol/L (135-144) Potassium Level 4.4mmol/L (3.5-5.1) Chloride Level 105mmol/L (97-110) Carbon Dioxide Level 27mmol/L (21-31) Anion Gap 17 (8-16) Blood Urea Nitrogen 48mg/dl (7-20) Creatinine 2.73mg/dl (0.61-1.24) Glucose Level 74mg/dl (70-220) Calcium Level 9.2mg/dl (8.4-10.2) Magnesium Level 2.5mg/dl (1.7-2.5) Test 04/24/17 08:57 Bedside Glucose 83mg/dL (70-220) Copies To: CC: ELEANOR FLORES; WALDO LIN MD, ELLEN MD Apr 24, 2017 10:13
--- NOTE | 2017-04-24 11:32 | CONS ---
Date/Time of Note Date/Time of Note DATE: 04/24/17 TIME: 11:30 Assessment/Plan Assessment/Plan Additional Assessment/Plan Congestive Heart Failure Cardiomyopathy s/p AICD Hypertension S/p TAVR Renal failure Hypothyroidism anemia Hemodynamically stable Hold Lasix Continue Coreg Continue Brilinta Hold Losartan Continue Insulin Continue Lipitor Continue Levothyroxine Consultation Date/Type/Reason Admit Date/Time Apr 18, 2017 at 09:11 Initial Consult Date 04/22/17 Type of Consultation: NEPHROLOGY Referring Provider: GRAY RUIZ MD Exam/Review of Systems Vital Signs Vitals Vital Signs Date Time Temp Pulse Resp B/P Pulse Ox O2 Delivery O2 Flow Rate FiO2 04/24/17 08:12 78 04/24/17 08:04 98.8 17 114/62 98 04/23/17 07:45 Nasal Cannula 2.0 Intake and Output 04/23/17 04/23/17 04/24/17 15:00 23:00 07:00 Intake Total 300 ml Balance 300 ml Exam Head: atraumatic, normocephalic Neck: non-tender, supple Respiratory: clear to auscultation Cardiovascular: regular rate and rhythm Gastrointestinal: nl liver, spleen, non-tender, soft Extremities: normal pulses Results Result Diagram: 04/22/17 0810 04/24/17 0750 Results 24 hrs Laboratory Tests Test 04/23/17 12:44 04/23/17 17:16 04/23/17 22:12 04/24/17 07:50 Bedside Glucose 113 86 113 Sodium Level 145 H Potassium Level 4.4 Chloride Level 105 Carbon Dioxide Level 27 Anion Gap 17 H Blood Urea Nitrogen 48 H Creatinine 2.73 H Glucose Level 74 Calcium Level 9.2 Magnesium Level 2.5 Test 04/24/17 08:57 Bedside Glucose 83 Medications Medications Current Medications Acetaminophen/ Hydrocodone Bitart ([place] (5/325)) 1 tab Q6H PRN PO PAIN LEVEL 4 -6; Start 04/18/17 at 17:00 Morphine Sulfate (morphine) 2 mg Q4H PRN IV PAIN LEVEL 7-10; Start 04/18/17 at 17:00 Docusate Sodium (Colace) 100 mg Q12H PRN PO CONSTIPATION; Start 04/18/17 at 17 :00 Magnesium Hydroxide (Milk Of Mag) 30 ml DAILY PRN PO CONSTIPATION; Start 04/18 at 17:00 Allopurinol (Zyloprim) 100 mg DAILY PO Last administered on 04/24/17 08:58; Admin Dose 100 MG; Start 04/19/17 at 09:00 Aspirin (Aspirin) 81 mg DAILY PO Last administered on 04/24/17 08:58; Admin Dose 81 MG; Start 04/19/17 at 09:00 Carvedilol (Coreg) 3.125 mg BID PO Last administered on 04/24/17 08:59; Admin Dose 3.125 MG; Start 04/18/17 at 21:00 Folic Acid (Folic Acid) 1 mg DAILY PO Last administered on 04/24/17 08:58; Admin Dose 1 MG; Start 04/19/17 at 09:00 Insulin Glargine (Lantus) 20 unit QHS SC Last administered on 04/23/17 22:18; Admin Dose 20 UNIT; Start 04/18/17 at 21:00 Ticagrelor (Brilinta) 90 mg BID PO Last administered on 04/24/17 09:02; Admin Dose 90 MG; Start 04/18/17 at 21:00 Atorvastatin Calcium (Lipitor) 20 mg DAILY@21 PO Last administered on 22:14; Admin Dose 20 MG; Start 04/18/17 at 21:00 Diagnostic Test (Pha) (Accu-Chek) 1 ea 02 XX Last administered on 04/21/17 02: 06; Admin Dose 1 EA; Start 04/19/17 at 02:00 Miscellaneous Information 1 ea NOTE XX ; Start 04/18/17 at 17:00 Glucose (Glutose) 15 gm Q15M PRN PO DECREASED GLUCOSE; Start 04/18/17 at 17:00 Glucose (Glutose) 22.5 gm Q15M PRN PO DECREASED GLUCOSE; Start 04/18/17 at 17: 00 Dextrose (D50w Syringe) 25 ml Q15M PRN IV DECREASED GLUCOSE; Start 04/18/17 at 17:00 Dextrose (D50w Syringe) 50 ml Q15M PRN IV DECREASED GLUCOSE; Start 04/18/17 at 17:00 Glucagon (Glucagen) 1 mg Q15M PRN IM DECREASED GLUCOSE; Start 04/18/17 at 17: 00 Glucose (Glutose) 15 gm Q15M PRN BUCCAL DECREASED GLUCOSE; Start 04/18/17 at 17:00 Acetaminophen (Tylenol Tab) 650 mg Q6H PRN PO PAIN AND OR ELEVATED TEMP Last administered on 04/18/17 22:07; Admin Dose 650 MG; Start 04/18/17 at 22:00 Heparin Sodium (Porcine) 5000 unit 5,000 unit BID SC Last administered on 09:02; Admin Dose 5,000 UNIT; Start 04/20/17 at 21:00 Ferric Sodium Gluconate Complex/ Sodium Chloride (Ferrlecit/NS) 110 ml @ 110 mls/hr Q24H IVPB Last administered on 04/23/17 12:43; Admin Dose 110 MLS/HR; Start 04/21/17 at 13:00; Stop 04/25/17 at 13:59 Potassium Chloride (Klor-Con 20) 20 meq BID PO Last administered on 04/24/17 08:58; Admin Dose 20 MEQ; Start 04/22/17 at 21:00 Furosemide (Lasix) 20 mg DAILY IV Last administered on 04/24/17 08:59; Admin Dose 20 MG; Start 04/24/17 at 09:00 ROSA HAY M.D. Apr 24, 2017 11:32
--- NOTE | 2017-04-24 21:43 | CONS ---
Date/Time of Note Date/Time of Note DATE: 04/24/17 TIME: 21:42 Assessment/Plan Assessment/Plan Additional Assessment/Plan 1. 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 Congestive heart failure, acute on chronic, systolic, 2. Dilated cardiomyopathy with AVR 3. CAD, s/p PCI/stent, 4. Pneumonia, on levaquin 5. HTN, controlled 5. AICD, stable 6. s/p TAVR, Plan; Cr bumped to 2.73, Na trending up, HCO3 30 - s/p IV lasix diuresis did not tolerate aldactone due to bump in Cr Previously pt had a CKD work up done, no need to repeat it hold losartan for now follow up with me in clinic in 1 week after d/c Consultation Date/Type/Reason Admit Date/Time Apr 18, 2017 at 09:11 Initial Consult Date 04/22/17 Type of Consultation: NEPHROLOGY Referring Provider: GRAY RUIZ MD 24 HR Interval Summary Free Text/Dictation pt was seen early in AM< Cr bumped to 2.73 Exam/Review of Systems Vital Signs Vitals Vital Signs Date Time Temp Pulse Resp B/P Pulse Ox O2 Delivery O2 Flow Rate FiO2 04/24/17 12:11 98.7 78 17 116/59 99 04/23/17 07:45 Nasal Cannula 2.0 Intake and Output 04/23/17 04/23/17 04/24/17 14:59 22:59 06:59 Intake Total 300 ml Balance 300 ml Results Result Diagram: 04/22/17 0810 04/24/17 0750 Results 24 hrs Laboratory Tests Test 04/23/17 22:12 04/24/17 07:50 04/24/17 08:57 Bedside Glucose 113 83 Sodium Level 145 H Potassium Level 4.4 Chloride Level 105 Carbon Dioxide Level 27 Anion Gap 17 H Blood Urea Nitrogen 48 H Creatinine 2.73 H Glucose Level 74 Calcium Level 9.2 Magnesium Level 2.5 WALDO ALDANA MD Apr 24, 2017 21:43
== END 2017-04-24 13:00 | disposition home health service (06) | DRG 291 ==
LOC: E/R 06:19 → MS3 09:11 → MS4 18:46
PROVIDERS: ADMIT Internal Medicine; ATTEND Internal Medicine
DX: I13.0 Hypertensive heart and chronic kidney disease with heart failure and stage 1 through stage 4 chronic kidney disease, or unspecified chronic kidney disease (principal); I50.23 Acute on chronic systolic (congestive) heart failure; N17.9 Acute kidney failure, unspecified; J18.9 Pneumonia, unspecified organism; E11.22 Type 2 diabetes mellitus with diabetic chronic kidney disease; I42.9 Cardiomyopathy, unspecified; N18.3 Chronic kidney disease, stage 3 (moderate); Z95.2 Presence of prosthetic heart valve; E03.9 Hypothyroidism, unspecified; D50.9 Iron deficiency anemia, unspecified; Z79.4 Long term (current) use of insulin; Z79.84 Long term (current) use of oral hypoglycemic drugs; Z79.82 Long term (current) use of aspirin; Z79.02 Long term (current) use of antithrombotics/antiplatelets; Z95.810 Presence of automatic (implantable) cardiac defibrillator; Z95.5 Presence of coronary angioplasty implant and graft
CPT/HCPCS: 36600; 71010; 71020; 80048; 80053; 81003; 82550; 82553; 82728; 82803; 82962; 83540; 83605; 83735; 83880; 84145; 84484; 85025; 85610; 85730; 87040; 90686; 93005; 94644; 96365; 96375; 97161; J1940; J0456; J0696; J1644; J1650; J1815; J2916

== ENCOUNTER 2017-06-23 16:50 | Emergency (ER) | END 2017-06-23 23:31 | disposition home or self-care (01) ==

== ENCOUNTER 2017-07-01 11:03 | Inpatient (IN) | END 2017-07-11 18:58 | disposition home or self-care (01) | DRG 246 ==

== ENCOUNTER 2017-07-16 16:24 | Inpatient (IN) | END 2017-07-19 19:20 | disposition home or self-care (01) | DRG 291 ==

== ENCOUNTER 2017-08-02 15:42 | Inpatient (IN) | END 2017-08-05 13:02 | disposition home health service (06) | DRG 291 ==

== ENCOUNTER 2017-09-01 13:59 | Inpatient (IN) | END 2017-09-03 17:30 | disposition home or self-care (01) | DRG 312 ==

== ENCOUNTER 2017-10-27 19:46 | Inpatient (IN) | END 2017-11-01 18:55 | disposition home or self-care (01) | DRG 683 ==

== ENCOUNTER → 2017-12-15 | Emergency (ER) | END | disposition home or self-care (01) ==

== ENCOUNTER 2018-05-09 15:36 | Inpatient (IN) | END 2018-05-19 16:22 | disposition home or self-care (01) | DRG 291 ==

== ENCOUNTER 2018-07-09 11:08 | Emergency (ER) | payer MEDICARE, OTHER ==
[~2018-07-09] VITALS: Ht 152.4 cm; Wt 67.2 kg
[~2018-07-09 11:08] MED LIST changes: +ALBU8.5H8 INH; -ASPI81TA3 PO; +ASPI81TA52 PO; +ATOR20TA65 PO; +CARV25TA79 PO; -CARV3.1260 PO; -FOLI-49 PO; +HYDR-3672 PO; +ISOS60TA PO; -LANT3I SC; +LATA2.5D19 BOTH EYES; +LEVO75TA5 PO; -LEVO88TA3 PO; -LOSA50TA6 PO; -MTF1000T PO; +NATE60TA PO; -SIMV40TA2 PO; +SITA50TA2 PO
[2018-07-09 11:20] VITALS: Ht 152.4 cm; Wt 67.2 kg
--- NOTE | 2018-07-09 11:29 | ERD ---
ER Documentation Chief Complaint Chief Complaint cough, congestion & fever x4 wks, medication given not helping HPI This is a 83-year-old male with a history of CHF, presents with 4 weeks of cough and congestion. The patient has been given multiple decongestants, and this has not helped, he denies any leg swelling, he has denies any chest pain. His primary care doctor saw him for the same symptoms and given decongestant, mainly his cough is occurring at night, he is also taking an inhaler. ROS All systems reviewed and are negative except as per history of present illness. Medications Home Meds Active Scripts Azithromycin* (Zithromax*) 250 Mg Tablet, 250 MG PO .ZPACK DIRECTED, #6 TAB TAKE 500 MG (2 TABS) THE FIRST DAY THEN 250 MG (1 TAB) DAYS 2-5 Prov:OPAL REY MD 07/09/18 Albuterol Sulfate* (Proair HFA*) 8.5 Gm Hfa.aer.ad, 2 PUFF INH Q4H PRN for WHEEZING AND SOB, #1 INHALER Prov:MERT BENITEZ MD 05/19/18 Hydralazine Hcl* (Apresoline*) 50 Mg Tab, 50 MG PO Q8 for 30 Days, TAB Prov:MYRA CABRALES 05/19/18 Atorvastatin Calcium (Atorvastatin Calcium) 20 Mg Tablet, 20 MG PO QHS for 30 Days, TAB Prov:MYRA CABRALES 05/19/18 Reported Medications Latanoprost (Xalatan) 2.5 Ml Drops, 1 DROP BOTH EYES QHS, #1 BOTTLE 05/09/18 Nateglinide* (Nateglinide*) 60 Mg Tablet, 180 MG PO AC MEALS, TAB 05/09/18 Furosemide* (Furosemide*) 40 Mg Tablet, 40 MG PO BID, TAB 12/15/17 Levothyroxine Sodium* (Levothyroxine Sodium*) 75 Mcg Tablet, 75 MCG PO BEFORE BREAKFAST, #30 TAB 10/27/17 Sitagliptin* (Januvia*) 50 Mg Tablet, 50 MG PO DAILY, #30 TAB 07/30/17 Isosorbide Mononitrate* (Isosorbide Mononitrate*) 60 Mg Tab.er.24h, 60 MG PO DAILY, TAB 07/30/17 Carvedilol* (Carvedilol*) 25 Mg Tablet, 25 MG PO BID, #60 TAB 07/30/17 Ticagrelor* (Brilinta*) 90 Mg Tablet, 90 MG PO Q12, TAB 07/30/17 Aspirin (Low Dose Aspirin) 81 Mg Tablet.dr, 81 MG PO DAILY, #30 TAB 07/30/17 Allopurinol* (Allopurinol*) 100 Mg Tablet, 100 MG PO DAILY, TAB 07/30/17 Allergies Allergies: Coded Allergies: No Known Allergies (Verified Allergy, Unknown, 05/09/18) PMhx/Soc History of Surgery: Yes (7 STENTS, 1 VALVE REPLACEMENT,PAVR,DEFIB, PACEMAKER,APEENDOCTOMY) Anesthesia Reaction: No Hx Neurological Disorder: No Hx Respiratory Disorders: Yes (SOB RELATED TO CHF,PNA) Hx Cardiac Disorders: Yes (CHF, PACEMAKER,HTN,DYSLEPIDEMIA) Hx Psychiatric Problems: No Hx Miscellaneous Medical Probl: No Hx Alcohol Use: No Hx Substance Use: No Hx Tobacco Use: No Physical Exam Vitals Vital Signs Date Temp Pulse Resp B/P (MAP) Pulse Ox O2 O2 Flow FiO2 Time Delivery Rate 07/09/18 98.1 75 22 161/91 96 Room Air 14:03 (114) 07/09/18 98.2 65 18 138/85 99 Room Air 12:06 (102) 07/09/18 97.2 78 18 133/80 99 11:20 (97) Physical Exam Const: No acute distress Head: Atraumatic Eyes: Normal Conjunctiva ENT: Normal External Ears, Nose and Mouth. Neck: Full range of motion. No meningismus. Resp: Clear to auscultation bilaterally Cardio: Regular rate and rhythm, no murmurs, no JVD, no pitting edema Abd: Soft, non tender, non distended. Normal bowel sounds Skin: No petechiae or rashes Back: No midline or flank tenderness Ext: No cyanosis, or edema Neur: Awake and alert Psych: Normal Mood and Affect Result Diagram: 07/09/18 1158 07/09/18 1158 Results 24 hrs Laboratory Tests Test 07/09/18 11:58 White Blood Count 7.9 10^3/ul Red Blood Count 3.87 10^6/ul Hemoglobin 10.5 g/dl Hematocrit 32.9 % Mean Corpuscular Volume 85.0 fl Mean Corpuscular Hemoglobin 27.1 pg Mean Corpuscular Hemoglobin Concent 31.9 g/dl Red Cell Distribution Width 18.1 % Platelet Count 195 10^3/UL Mean Platelet Volume 11.3 fl Immature Granulocytes % 5.700 % Neutrophils % 65.5 % Segmented Neutrophils % (Manual) 53 % Band Neutrophils % (Manual) 5 % Lymphocytes % 19.7 % Lymphocytes % (Manual) 29 % Reactive Lymphocytes % (Manual) 11 % Monocytes % 8.5 % Monocytes % (Manual) 2 % Eosinophils % 0.5 % Basophils % 0.1 % Nucleated Red Blood Cells % 0.3 /100WBC Immature Granulocytes # 0.450 10^3/ul Neutrophils # 5.2 10^3/ul Neutrophils # (Manual) 4.2 10^3/ul Band Neutrophils # 0.3 10^3/ul Lymphocytes (Manual) 2.2 10^3/ul Lymphocytes # 1.6 10^3/ul Reactive Lymphocytes # 0.8 10^3/ul Monocytes # 0.7 10^3/ul Monocytes # (Manual) 0.1 10^3/ul Eosinophils # 0.0 10^3/ul Basophils # 0.0 10^3/ul Nucleated Red Blood Cells # 0.0 10^3/ul Platelet Estimate NORMAL Giant Platelets 2 % Polychromasia 2+ Poikilocytosis 1+ Anisocytosis 1+ Microcytosis 1+ Prothrombin Time 11.6 Sec Prothrombin Time Ratio 0.9 INR International Normalized Ratio 0.84 Sodium Level 142 mmol/L Potassium Level 4.0 mmol/L Chloride Level 107 mmol/L Carbon Dioxide Level 24 mmol/L Anion Gap 11 Blood Urea Nitrogen 33 mg/dl Creatinine 1.42 mg/dl Est Glomerular Filtrat Rate mL/min mL/min Glucose Level 86 mg/dl Calcium Level 8.8 mg/dl Total Bilirubin 0.3 mg/dl Direct Bilirubin 0.00 mg/dl Indirect Bilirubin 0.3 mg/dl Aspartate Amino Transf (AST/SGOT) 56 IU/L Alanine Aminotransferase (ALT/SGPT) 47 IU/L Alkaline Phosphatase 104 IU/L Troponin I 0.018 ng/ml B-Type Natriuretic Peptide 43606 PG/ML Total Protein 7.7 g/dl Albumin 4.1 g/dl Globulin 3.60 g/dl Albumin/Globulin Ratio 1.13 Procedures/MDM 83-year-old male presents for evaluation of cough and congestion for the last 4 weeks. Exam reveals an afebrile nontoxic well-appearing male, who appears in no acute respiratory distress, his cough has been ongoing for the last 4 weeks, cardiac workup was ordered, was overall unremarkable, his basal metric peptide was noted to be elevated, however in comparison to his previous, it is comparable, additionally I do not suspect the patient is acute CHF, given that he has no physical exam findings such as pitting edema, JVD, orthopnea or respiratory distress. His troponin was at 0.018, which was lower than his baseline, his x-ray did not show any consolidation, but I did offer azithromycin, which may help from an inflammatory process, and given his age, and the prolonged nature of her symptoms, occult pneumonia is not completely excluded. Patient was agreeable to this at discharge she was in no acute distress. EKG: Rate/Rhythm: Paced rhythm QRS, ST, T-waves: No changes consistent w/ acute ischemia Impression: No evidence of ischemia or arrhythmia Departure Diagnosis: Primary Impression: Cough Condition: Stable OPAL REY MD Jul 09, 2018 11:29
[2018-07-09] MEDS ORDERED: AZIT250T PO (13:34)
[2018-07-09 14:03] VITALS: BP 161/91; PULSE 75; RESP 22
== END 2018-07-09 14:23 | disposition home or self-care (01) ==
LOC: E/R 11:08
DX: R05 Cough (principal); I11.0 Hypertensive heart disease with heart failure; I50.9 Heart failure, unspecified; Z79.82 Long term (current) use of aspirin; Z79.84 Long term (current) use of oral hypoglycemic drugs; Z95.0 Presence of cardiac pacemaker
CPT/HCPCS: 36415; 71045; 80053; 83880; 84484; 85025; 85610; 87400

== ENCOUNTER 2018-07-17 08:34 | Inpatient (IN) | payer MEDICARE, OTHER ==
[~2018-07-17] VITALS: Ht 162.6 cm; Wt 65.5 kg
[~2018-07-17 08:34] MED LIST changes: +AZIT250T PO
[2018-07-17] MEDS ORDERED: FUROSEMIDE 40 MG INJ IV ONE (10:00)
--- NOTE | 2018-07-17 12:25 | ERD ---
ER Documentation Chief Complaint Chief Complaint Complains of cough, colds and flu symptoms with SOB today HPI This is a 83-year-old male has had a cough for a month and getting progressively more short of breath with orthopnea and dyspnea on exertion. The patient was treated with Zithromax last week for bronchitis. He still having a cough is occasionally productive but no fever. Patient does have a history of congestive heart failure. No chest pain. ROS All systems reviewed and are negative except as per history of present illness. Medications Home Meds Active Scripts Albuterol Sulfate* (Proair HFA*) 8.5 Gm Hfa.aer.ad, 2 PUFF INH Q4H PRN for WHEEZING AND SOB, #1 INHALER Prov:MERT BENITEZ MD 05/19/18 Hydralazine Hcl* (Apresoline*) 50 Mg Tab, 50 MG PO Q8 for 30 Days, TAB Prov:MYRA CABRALES 05/19/18 Atorvastatin Calcium (Atorvastatin Calcium) 20 Mg Tablet, 20 MG PO QHS for 30 Days, TAB Prov:MYRA CABRALES 05/19/18 Reported Medications Latanoprost (Xalatan) 2.5 Ml Drops, 1 DROP BOTH EYES QHS, #1 BOTTLE 05/09/18 Nateglinide* (Nateglinide*) 60 Mg Tablet, 180 MG PO AC MEALS, TAB 05/09/18 Furosemide* (Furosemide*) 40 Mg Tablet, 40 MG PO BID, TAB 12/15/17 Levothyroxine Sodium* (Levothyroxine Sodium*) 75 Mcg Tablet, 75 MCG PO BEFORE BREAKFAST, #30 TAB 10/27/17 Sitagliptin* (Januvia*) 50 Mg Tablet, 50 MG PO DAILY, #30 TAB 07/30/17 Isosorbide Mononitrate* (Isosorbide Mononitrate*) 60 Mg Tab.er.24h, 60 MG PO DAILY, TAB 07/30/17 Carvedilol* (Carvedilol*) 25 Mg Tablet, 25 MG PO BID, #60 TAB 07/30/17 Ticagrelor* (Brilinta*) 90 Mg Tablet, 90 MG PO Q12, TAB 07/30/17 Aspirin (Low Dose Aspirin) 81 Mg Tablet.dr, 81 MG PO DAILY, #30 TAB 07/30/17 Allopurinol* (Allopurinol*) 100 Mg Tablet, 100 MG PO DAILY, TAB 07/30/17 Discontinued Scripts Azithromycin* (Zithromax*) 250 Mg Tablet, 250 MG PO .ERROL DIRECTED, #6 TAB TAKE 500 MG (2 TABS) THE FIRST DAY THEN 250 MG (1 TAB) DAYS 2-5 Prov:OPAL REY MD 07/09/18 Allergies Allergies: Coded Allergies: No Known Allergies (Verified Allergy, Unknown, 07/17/18) PMhx/Soc History of Surgery: Yes (7 STENTS, 1 VALVE REPLACEMENT,PAVR,DEFIB, PACEMAKER,APEENDOCTOMY) Anesthesia Reaction: No Hx Neurological Disorder: No Hx Respiratory Disorders: Yes (SOB RELATED TO CHF,PNA) Hx Cardiac Disorders: Yes (CHF, PACEMAKER,HTN,DYSLEPIDEMIA) Hx Psychiatric Problems: No Hx Miscellaneous Medical Probl: No Hx Alcohol Use: No Hx Substance Use: No Hx Tobacco Use: No Smoking Status: Never smoker FmHx Family History: No coronary disease Physical Exam Vitals Vital Signs Date Temp Pulse Resp B/P (MAP) Pulse Ox O2 O2 Flow FiO2 Time Delivery Rate 07/17/18 76 18 149/71 100 Nasal 2.0 09:53 (97) Cannula 07/17/18 Nasal 2 09:05 Cannula 07/17/18 97.6 89 20 160/87 97 08:41 (111) Physical Exam Const: Well-developed, well-nourished Head: Atraumatic, normocephalic Eyes: Normal Conjunctiva, PERRLA, EOMI, normal sclera, no nystagmus ENT: Normal External Ears, Nose and Mouth, moist mucus membranes. Neck: Full range of motion. No meningismus, no lymphadenopathy. Resp: [No increased work of breathing there is diffuse coarse rhonchi Cardio: Regular rate and rhythm, no murmurs, S1 S2 present Abd: Soft, non tender x 4, non distended. Normal bowel sounds, no guarding or rebound, no pulsitile abdominal masses or bruits Skin: No petechiae or rashes, no ecchymosis , no maculopapular rash Back: No midline or flank tenderness Ext: No cyanosis, or edema, FROM x 4, normal inspection, neurovascularly intact x 4 Neur: Awake and alert, STR 5/5 x 4, sensation intact x 4, no focal findings, cerebellum intact Psych: Normal Mood and Affect Result Diagram: 07/17/18 0915 07/17/18 0915 Results 24 hrs Laboratory Tests Test 07/17/18 09:11 07/17/18 09:15 POC Venous Lactate 1.9 mmol/L White Blood Count 7.1 10^3/ul Red Blood Count 3.91 10^6/ul Hemoglobin 10.5 g/dl Hematocrit 33.6 % Mean Corpuscular Volume 85.9 fl Mean Corpuscular Hemoglobin 26.9 pg Mean Corpuscular Hemoglobin Concent 31.3 g/dl Red Cell Distribution Width 18.3 % Platelet Count 139 10^3/UL Mean Platelet Volume 11.2 fl Immature Granulocytes % 4.300 % Neutrophils % 67.9 % Lymphocytes % 20.7 % Monocytes % 6.4 % Eosinophils % 0.4 % Basophils % 0.3 % Nucleated Red Blood Cells % 0.0 /100WBC Immature Granulocytes # 0.300 10^3/ul Neutrophils # 4.8 10^3/ul Lymphocytes # 1.5 10^3/ul Monocytes # 0.5 10^3/ul Eosinophils # 0.0 10^3/ul Basophils # 0.0 10^3/ul Nucleated Red Blood Cells # 0.0 10^3/ul Sodium Level 145 mmol/L Potassium Level 4.5 mmol/L Chloride Level 108 mmol/L Carbon Dioxide Level 25 mmol/L Anion Gap 12 Blood Urea Nitrogen 25 mg/dl Creatinine 1.55 mg/dl Est Glomerular Filtrat Rate mL/min mL/min Glucose Level 175 mg/dl Calcium Level 9.5 mg/dl Total Bilirubin 0.6 mg/dl Direct Bilirubin 0.00 mg/dl Indirect Bilirubin 0.6 mg/dl Aspartate Amino Transf (AST/SGOT) 78 IU/L Alanine Aminotransferase (ALT/SGPT) 79 IU/L Alkaline Phosphatase 121 IU/L Troponin I 0.030 ng/ml B-Type Natriuretic Peptide 9980 PG/ML Total Protein 7.9 g/dl Albumin 4.2 g/dl Globulin 3.70 g/dl Albumin/Globulin Ratio 1.13 Current Medications Medications Dose Sig/Leanna Start Time Status Last (Trade) Ordered Route PRN Stop Time Admin Dose Reason Admin Furosemide 60 mg ONCE ONCE 07/17/18 DC 07/17/18 (Lasix) IV 10:00 10:14 07/17/18 10:03 Procedures/MDM MR #: [id number] DOS: 07/17/18 0906 Ordering MD: JAIDEN YIN DO Location: E/R Room/Bed: PROCEDURE: XR Chest. CLINICAL INDICATION: Chest pain. TECHNIQUE: Single frontal view. COMPARISON: July 09, 2018. FINDINGS: There is interstitial disease bilaterally in the mid and lower lung zones consis tent with pulmonary edema, slightly worse than seen previously. The heart is enlarged. There is calcification in the aorta consistent with atherosclerosis. There is a left-sided single lead permanent pacemaker/internal cardiac defibrillator. There is a trans arterial aortic valve replacement. There is no pleural effusion. There is no pneumothorax. IMPRESSION: 1. Worse pulmonary edema. 2. Cardiomegaly and atherosclerosis. 3. Permanent pacemaker/internal cardiac defibrillator. 4. TAVR. 5. Otherwise unremarkable chest radiograph. RPTAT: QQ .Luciano Lanza MD, MD Date Time Electronically viewed and signed by .Luciano Lanza MD, MD on 07/17/2018 09:28 .R/ CC: JAIDEN YIN DO [id number] EKG: Rate/Rhythm: Normal sinus rhythm with sinus arrhythmia, left axis deviation, left bundle branch block QRS, ST, QT: NORMAL [place], QRS, QT] Impression: Left bundle branch block Patient has worsening of heart failure on chest x-ray and elevated BNP of near 10,000. Give a dose of IV Lasix here and will admit for diuresis due to CHF exacerbation Departure Diagnosis: Primary Impression: Congestive heart failure Heart failure type: unspecified Heart failure chronicity: acute on chronic Qualified Codes: I50.9 - Heart failure, unspecified Condition: Stable JAIDEN YIN DO Jul 17, 2018 12:25
[2018-07-17] MEDS ORDERED: ONDANSETRON 4 MG INJ IV PRN ×2 (12:30→17:30)
[2018-07-17] MEDS ORDERED: ACETAMINOPHEN 325 MG TAB PO PRN ×2 (12:30→17:30)
[2018-07-17 13:52] VITALS: BP 158/90; PULSE 74; PULSE 83; RESP 20
--- NOTE | 2018-07-17 14:30 | CONS ---
DATE OF ADMISSION: 07/17/2018 DATE OF CONSULTATION: 07/17/2018 TYPE OF CONSULTATION: Cardiology. REASON FOR CONSULTATION: Congestive heart failure exacerbation. REQUESTING PHYSICIAN: Elizabet Pederson MD HISTORY OF PRESENT ILLNESS: Mr. Adams is a very pleasant 83-year-old male well known to myself as a primary office patient and multiple hospital admissions with a history of cardiomyopathy, decreased left ventricular ejection fraction last approximately 30% by echo in 04/2018, coronary artery, statu s post PTCA and stent placement, most recently to RCA, PDA and prior to that left main in 06/2017, on e year prior TAVR or transcatheter aortic valve replacement, chronic kidney disease, not on hemodialy sis, diabetes mellitus, hypothyroidism, who presents with complaints of ongoing cough productive of c lear sputum and shortness of breath plus or minus symptoms of orthopneic ongoing for 1 to 2 weeks. T he patient denied associated chest pain. Upon arrival, temperature was 97.6, blood pressure 160/87, pulse 89, respiratory rate 20, satting 97%. The patient's labs were notable for white blood cell cou nt of 7.1, hemoglobin 10.5, platelet count 139, sodium 145, potassium 4.5, creatinine 1.55, BUN 25, A ST 78, ALT 79, BNP of 9980. The patient underwent a chest x-ray revealing congestive heart failure. The patient's electrocardiogram is not in the chart for my review at this time. The patient has bee n admitted to the floor and since admit to the floor, continued to have mild shortness of breath and monitored in telemetry revealing sinus rhythm. PAST MEDICAL HISTORY: As above in HPI. MEDICATIONS CURRENTLY IN HOSPITAL: Pending at this time. MEDICATIONS PRIOR TO ADMIT: 1. Albuterol. 2. Brilinta 90 mg q.12. 3. Lipitor 20 mg at bedtime. 4. Carvedilol 25 mg p.o. b.i.d. 5. Hydralazine 50 mg q.8. 6. Imdur 60 mg daily. 7. Aspirin 81 mg daily. 8. Lasix 40 mg p.o. b.i.d. 9. Xalatan eyedrops. 10. Synthroid 75 mcg daily. 11. Januvia. 12. Allopurinol. ALLERGIES: NO KNOWN DRUG ALLERGIES. SOCIAL HISTORY: No current tobacco, EtOH or illicit drug use. FAMILY HISTORY: No history of sudden cardiac or early CAD. REVIEW OF SYSTEMS: As above in HPI. CONSTITUTIONAL: No fevers, chills. PULMONARY: No current shortness of breath. CARDIOVASCULAR: Congestive heart failure, shortness of breath. No chest pain. GASTROINTESTINAL: No vomiting. GENITOURINARY: No hematuria. MUSCULOSKELETAL: Degenerative joint disease. PSYCHIATRIC: No documented psych history. NEUROLOGIC: No documented history of CVA. ENDOCRINE: Diabetes mellitus. PHYSICAL EXAMINATION: VITAL SIGNS: Temperature 97.7, blood pressure 158/90, pulse 74, respiratory rate 20, satting 96%. GENERAL: The patient is alert, awake, complaining shortness breath. NECK: JVP approximately is 9 to 10 cm water. CHEST: Decreased breath sounds at base bilaterally, bibasilar crackles. HEART: Regular rate and rhythm. Normal S1, S2. Laterally displaced PMI. ABDOMEN: Positive bowel sounds, soft. EXTREMITIES: No significant pitting edema, 1+ pulses bilateral, posterior tibial. LABORATORY DATA: Most recent from today. No further labs for my review at this time. IMAGING STUDIES: As above in HPI. No further imaging studies for my review at this time. ELECTROCARDIOGRAM: No electrocardiograms for my review at this time. IMPRESSION: 1. Congestive heart failure exacerbation, systolic, acute on chronic. 2. Cardiomyopathy with decreased left ventricular ejection fraction last ejection fraction approxima tely 30% by echo in 04/2018. 3. History of percutaneous transluminal coronary angioplasty and stent placement, most recently to R CA, PDA and left main in 06/2017. 4. Hypertension. 5. Dyslipidemia. 6. Diabetes mellitus. 7. Chronic kidney disease, not on hemodialysis. 8. Hypothyroidism. 9. Hypernatremia. 10. Increased liver function tests. 11. Increased BNP consistent with patient's congestive heart failure. RECOMMENDATIONS: 1. At this time, we would maintain the patient on telemetry monitoring to follow rhythm and rate con trol closely. 2. Complete the patient's rule out for myocardial infarction to ensure the patient's constellation s ymptoms are not result of acute coronary syndrome such as acute myocardial infarction. 3. We will continue the patient's Lasix but change it to IV and continue diuresis, following strict I's and O's, creatinine to grade diuresis closely. 4. Continue the patient's baseline carvedilol, hydralazine, Imdur, not on an BALTA inhibitor in the se tting of renal failure. 5. We would consider antibiotic therapy for this patient and follow up all culture data. 6. We would continue the patient's oral hypoglycemics and follow blood sugars closely. 7. Continue the patient's dual antiplatelet therapy with aspirin and Brilinta for stent patency. Thank you for allowing me to take part in the care of this patient. I will continue to follow him ve ry closely with you with further recommendations will be made as the patient progresses through his [facility] clinical course. Dictated By: ELEANOR ABREU/ELIZABETH Conf#: [id number] DID#: [id number] CC: ELIZABET PEDERSON;*EndCC*
[2018-07-17 14:32] VITALS: Ht 162.6 cm; Wt 65.5 kg
[2018-07-17 15:23] VITALS: BP 133/63; PULSE 83; RESP 20
--- NOTE | 2018-07-17 16:07 | QN ---
Documentation Comment seen and examined MERT BENITEZ MD Jul 17, 2018 16:07
[2018-07-17 16:30] VITALS: PULSE 86
[2018-07-17] MEDS ORDERED: NACL 0.9% 3 ML SYG IV SCH (17:30)
[2018-07-17] MEDS ORDERED: DOCUSATE SODIUM 100 MG CAP PO PRN (17:30)
[2018-07-17] MEDS ORDERED: BISACODYL (EC) 5 MG TAB PO PRN (17:30)
[2018-07-17] MEDS: FUROSEMIDE 40 MG INJ IV SCH (18:10)
--- NOTE | 2018-07-17 18:52 | NUR ---
EOSS: Received pt from ER at 1326. Pt is AAOx4, O2 sat 96% on 2L NC. SR on the monitor. Denies pain or SOB. Skin checked w/ charge master coordinator. Oriented pt to room, call light and care board. RN spoke w/ pt's son, Shahriar Adams , who is also the DPOA per pt's advance directive. RN reviewed POLST that was made in 04/2018 at last admission w/ Shahriar. Per Sharhiar, POLST is still their most current wishes. Dr. Pederson made aware. Pt is ambulatory, steady. Hourly rounding done, fall precautions initiated, all needs attended to. Pt is stable - will endorse to oncoming shift.
[2018-07-17] MEDS ORDERED: GLUCOSE GEL 15 GRAM TUBE BUCCAL PRN (19:30)
[2018-07-17] MEDS ORDERED: GLUCAGON 1 MG INJ IM PRN (19:30)
[2018-07-17] MEDS ORDERED: DEXTROSE 50% 50 ML SYRINGE IV PRN ×2 (19:30)
[2018-07-17] MEDS ORDERED: GLUCOSE GEL 15 GRAM TUBE PO PRN ×2 (19:30)
[2018-07-17 20:00] VITALS: PULSE 75
[2018-07-17] MEDS: ALBUTEROL/IPRATROPIUM (NEB) 3 ML AMP HHN SCH (20:00)
[2018-07-17 20:35] VITALS: BP 142/64; PULSE 81; RESP 18
--- NOTE | 2018-07-17 20:37 | HP ---
Date/Time of Note Date/Time of Note DATE: 07/17/18 TIME: 20:36 Assessment/Plan VTE Prophylaxis Pharmacological prophylaxis: apixaban Lines/Catheters IV [facility] Type (from [facility] Saline Lock Urinary Cath still in place: No Assessment/Plan Hospital Course 1. Congestive heart failure exacerbation, systolic, acute on chronic. 2. Hx of cardiomyopathy with decreased left ventricular ejection fraction last ejection fraction approximately 30% by echo in 04/2018. 3. History of percutaneous transluminal coronary angioplasty and stent placement, most recently to RCA, PDA and left main in 06/2017. 4. Hypertension. 5. Dyslipidemia. 6. Diabetes mellitus. 7. Chronic kidney disease 8. Hypothyroidism. 9. Hypernatremia. 10. Increased liver function tests. 11. Increased BNP consistent with patient's congestive heart failure. Assessment/Plan -telemetry -Dr Flores consult seen -diuresis -c/w homemeds -hypoglycemic control Result Diagram: 07/17/18 0915 07/17/18 0915 Results 24hrs Laboratory Tests Test 07/17/18 09:11 07/17/18 09:15 07/17/18 18:04 07/17/18 18:06 POC Venous Lactate 1.9 White Blood Count 7.1 Red Blood Count 3.91 L Hemoglobin 10.5 L Hematocrit 33.6 L Mean Corpuscular 85.9 Volume Mean Corpuscular 26.9 L Hemoglobin Mean Corpuscular 31.3 L Hemoglobin Concent Red Cell 18.3 H Distribution Width Platelet Count 139 #L Mean Platelet Volume 11.2 H Immature 4.300 H Granulocytes % Neutrophils % 67.9 Lymphocytes % 20.7 Monocytes % 6.4 Eosinophils % 0.4 Basophils % 0.3 Nucleated Red Blood 0.0 Cells % Immature 0.300 H Granulocytes # Neutrophils # 4.8 Lymphocytes # 1.5 Monocytes # 0.5 Eosinophils # 0.0 Basophils # 0.0 Nucleated Red Blood 0.0 Cells # Sodium Level 145 H Potassium Level 4.5 Chloride Level 108 Carbon Dioxide Level 25 Anion Gap 12 Blood Urea Nitrogen 25 H Creatinine 1.55 H Est Glomerular Filtrat Rate mL/min Glucose Level 175 Calcium Level 9.5 Total Bilirubin 0.6 Direct Bilirubin 0.00 Indirect Bilirubin 0.6 Aspartate Amino 78 H Transf (AST/SGOT) Alanine 79 H Aminotransferase (AL T/SGPT) Alkaline Phosphatase 121 Troponin I 0.030 0.035 B-Type Natriuretic 9980 H Peptide Total Protein 7.9 Albumin 4.2 Globulin 3.70 H Albumin/Globulin 1.13 Ratio Creatine Kinase 39 Creatine Kinase 2.9 Index Creatinine Kinase MB 1.13 (Mass) Bedside Glucose 178 HPI/ROS Admit Date/Time Admit Date/Time Jul 17, 2018 at 12:26 Hx of Present Illness This is a 83-year-old male has had a cough for a month and getting progressively more short of breath with orthopnea and dyspnea on exertion. The patient was treated with Zithromax last week for bronchitis. He still having a dry cough. Sometimes cough is occasionally productive but no fever. Patient does have a history of congestive heart failure, CKD and angioplasty. No chest pain reported. ROS ENT: no complaints Respiratory: shortness of breath, sputum, wheezing; No no complaints, No pain, No cough, No pleuritic pain, No other Cardiovascular: chest pain, edema, palpitations; No no complaints, No lightheadedness, No orthopenea, No paroxysmal nocturnal dyspnea, No other Genitourinary: no complaints, dysuria; No bleeding, No discharge, No flank pain, No hematuria, No other PMH/Family/Social Past Medical History Medical History: congestive heart failure, coronary artery disease, high cholesterol, hypertension Medications Current Medications Aspirin (Halfprin) 81 mg DAILY PO ; Start 07/18/18 at 09:00 Atorvastatin Calcium (Lipitor) 20 mg QHS PO ; Start 07/17/18 at 21:00 Carvedilol (Coreg) 25 mg BID PO ; Start 07/17/18 at 21:00 Hydralazine HCl (Apresoline) 50 mg Q8 PO Last administered on 07/17/18at 14:53; Admin Dose 50 MG; Start 07/17/18 at 14:30 Isosorbide Mononitrate (Imdur) 60 mg DAILY PO ; Start 07/18/18 at 09:00 Ticagrelor (Brilinta) 90 mg Q12 PO ; Start 07/17/18 at 21:00 Furosemide (Lasix) 40 mg BID DIURETICS IV Last administered on 07/17/18at 18:10; Admin Dose 40 MG; Start 07/17/18 at 18:00 Albuterol/ Ipratropium (Duoneb) 3 ml Q6HWA RESP THERAPY HHN ; Start 07/17/18 at 20:00 Allopurinol (Zyloprim) 100 mg DAILY PO ; Start 07/18/18 at 09:00 Latanoprost (Xalatan) 1 drop QHS BOTH EYES ; Start 07/17/18 at 21:00 Levothyroxine Sodium (Synthroid) 75 mcg BEFORE BREAKFAST PO ; Start 07/18/18 at 07:00 IV Flush (NS 3 ml) 3 ml PER PROTOCOL IV ; Start 07/17/18 at 17:30 Ondansetron HCl (Zofran Inj) 4 mg Q6H PRN IV NAUSEA/VOMITING; Start 07/17/18 at 17:30 Acetaminophen (Tylenol Tab) 650 mg Q6H PRN PO .PAIN 1-3 OR TEMP; Start 07/17/18 at 17:30 Docusate Sodium (Colace) 100 mg Q12H PRN PO .CONSTIPATION; Start 07/17/18 at 17:30 Bisacodyl (Dulcolax) 5 mg DAILY PRN PO .CONSTIPATION; Start 07/17/18 at 17:30 Pantoprazole (Protonix Tab) 40 mg DAILY@06 PO ; Start 07/18/18 at 06:00 Diagnostic Test (Pha) (Accu-Chek) 1 ea 02 XX ; Start 07/18/18 at 02:00 Insulin Aspart (Novolog Insulin Pen) NOVOLOG *MILD* ALGORITHM WITH MEALS BEDTIME SC ; Start 07/17/18 at 21:00 Miscellaneous Information 1 ea NOTE XX ; Start 07/17/18 at 19:30 Glucose (Glutose) 15 gm Q15M PRN PO DECREASED GLUCOSE; Start 07/17/18 at 19:30 Glucose (Glutose) 22.5 gm Q15M PRN PO DECREASED GLUCOSE; Start 07/17/18 at 19:30 Dextrose (D50w Syringe) 25 ml Q15M PRN IV DECREASED GLUCOSE; Start 07/17/18 at 19:30 Dextrose (D50w Syringe) 50 ml Q15M PRN IV DECREASED GLUCOSE; Start 07/17/18 at 19:30 Glucagon (Glucagen) 1 mg Q15M PRN IM DECREASED GLUCOSE; Start 07/17/18 at 19:30 Glucose (Glutose) 15 gm Q15M PRN BUCCAL DECREASED GLUCOSE; Start 07/17/18 at 19:30 Coded Allergies: No Known Allergies (Verified Allergy, Unknown, 1/28/19) Past Surgical History Past Surgical Hx: angioplasty Family History Significant Family History: no pertinent family hx Social History Smoking Status: Never smoker Exam/Review of Systems Vital Signs Vitals Vital Signs Date Temp Pulse Resp B/P (MAP) Pulse Ox O2 O2 Flow FiO2 Time Delivery Rate 07/17/18 99.1 81 18 142/64 97 Nasal 20:35 (90) Cannula 07/17/18 2.0 19:59 Exam Constitutional: alert, oriented Neck: supple Respiratory: clear to auscultation Cardiovascular: regular rate and rhythm Gastrointestinal: soft MYRA CABRALES Jul 17, 2018 20:37
[2018-07-17] MEDS: INSULIN ASPART [NOVOLOG] 3 ML PEN SC SCH (21:00)
[2018-07-17] MEDS: LATANOPROST 0.005% 2.5 ML OPH BOTH EYES SCH (21:25)
[2018-07-17] MEDS: ATORVASTATIN 20 MG TAB PO SCH (21:25)
[2018-07-17] MEDS: TICAGRELOR 90 MG TABLET PO SCH (22:06)
[2018-07-18] VITALS (11 sets, daily range): BP systolic 128–151; BP diastolic 63–80; PULSE 68–78; RESP 17–19
[2018-07-18] MEDS: ACCU-CHEK XX SCH (02:00)
[2018-07-18] MEDS: PANTOPRAZOLE (EC) 40 MG TAB PO SCH (06:40)
[2018-07-18] MEDS: LEVOTHYROXINE 75 MCG TAB PO SCH (06:40)
[2018-07-18] MEDS: FUROSEMIDE 40 MG INJ IV SCH ×2 (06:41→18:03)
--- NOTE | 2018-07-18 07:05 | NUR ---
EOSS: PATIENT STABLE LAST NIGHT. KEPT ON 2 LPM OF OXYGEN VIA NASAL CANNULA. MED SIDE EFFECTS DISCUSSED. NSR ON THE MONITOR.
[2018-07-18] MEDS: INSULIN ASPART [NOVOLOG] 3 ML PEN SC SCH ×4 (07:55→21:00)
[2018-07-18] MEDS: ALLOPURINOL 100 MG TAB PO SCH (08:19)
[2018-07-18] MEDS: ISOSORBIDE MONONITRATE(SR)60 MG TAB PO SCH (08:20)
[2018-07-18] MEDS: ASPIRIN (EC) 81 MG TAB PO SCH (08:20)
[2018-07-18] MEDS: TICAGRELOR 90 MG TABLET PO SCH ×2 (08:21→21:19)
[2018-07-18] MEDS: ALBUTEROL/IPRATROPIUM (NEB) 3 ML AMP HHN SCH ×3 (08:43→20:25)
--- NOTE | 2018-07-18 09:41 | CONS ---
Consult Date/Type/Reason Admit Date/Time Jul 17, 2018 at 12:26 Initial Consult Date Date/Time of Note DATE: 07/18/18 TIME: 09:39 Subjective Pt feels better now - appropriate pacing on tele. NO CP now. Improved SB. ROS: No fever, no chills, no nausea, no vomiting, no diarrhea/constipation No recent weight changes No chest pain, no PND, no orthopnea - improved SOB. No dizziness, blurred vision No thirst, no heat or cold intolerance Objective Vitals Vital Signs Date Temp Pulse Resp B/P (MAP) Pulse Ox O2 O2 Flow FiO2 Time Delivery Rate 07/18/18 2.0 08:51 07/18/18 72 22 Nasal 28 08:48 Cannula 07/18/18 98.4 151/76 95 07:18 (101) Intake and Output 07/17/18 07/17/18 07/18/18 1515:00 23:00 07:00 IntakeIntake Total 450 ml 200 ml OutputOutput Total 1100 ml BalanceBalance -1100 ml 450 ml 200 ml Exam General: WN/WD/NAD, AOx 3 HEENT: Unicetric/atraumatic/EOMI (follow commands) NECK: JVD elevated, no thyromegaly Lymph: no lymphadenopathy HEART: regular with no S3, II/ systolic murmur at apex, device on R side LUNGS: Coarse sounds ABD: soft, NT, ND, +BS : Intact Neuro: non focal SKIN: chronic changes EXT: trace edema Results/Medications Result Diagram: 07/18/18 0545 07/18/18 0545 Results 24 hrs Laboratory Tests Test 07/17/18 18:04 07/17/18 18:06 07/17/18 21:27 07/18/18 00:43 Creatine Kinase 39 34 Creatine Kinase 2.9 2.4 Index Creatinine Kinase MB 1.13 0.81 (Mass) Troponin I 0.035 0.044 Bedside Glucose 178 123 Test 07/18/18 05:45 07/18/18 08:11 White Blood Count 6.4 Red Blood Count 3.83 L Hemoglobin 10.3 L Hematocrit 32.1 L Mean Corpuscular 83.8 Volume Mean Corpuscular 26.9 L Hemoglobin Mean Corpuscular 32.1 Hemoglobin Concent Red Cell 18.1 H Distribution Width Platelet Count 133 L Mean Platelet Volume 11.0 H Immature 3.700 H Granulocytes % Neutrophils % 53.7 Lymphocytes % 33.1 Monocytes % 8.4 Eosinophils % 0.9 Basophils % 0.2 Nucleated Red Blood 0.0 Cells % Immature 0.240 H Granulocytes # Neutrophils # 3.5 Lymphocytes # 2.1 Monocytes # 0.5 Eosinophils # 0.1 Basophils # 0.0 Nucleated Red Blood 0.0 Cells # Sodium Level 145 H Potassium Level 3.5 Chloride Level 103 Carbon Dioxide Level 29 Anion Gap 13 Blood Urea Nitrogen 25 H Creatinine 1.51 H Est Glomerular Filtrat Rate mL/min Glucose Level 137 Calcium Level 9.0 Creatine Kinase 34 Creatine Kinase 2.3 Index Creatinine Kinase MB 0.78 (Mass) Troponin I 0.044 Triglycerides Level 80 Cholesterol Level 132 LDL Cholesterol, 74 Calculated HDL Cholesterol 42 Cholesterol/HDL 3.1 Ratio Bedside Glucose 130 Home Meds Active Scripts Albuterol Sulfate* (Proair HFA*) 8.5 Gm Hfa.aer.ad, 2 PUFF INH Q4H PRN for WHEEZING AND SOB, #1 INHALER Prov:MERT BENITEZ MD 05/19/18 Hydralazine Hcl* (Apresoline*) 50 Mg Tab, 50 MG PO Q8 for 30 Days, TAB Prov:MYRA CABRALES 05/19/18 Atorvastatin Calcium (Atorvastatin Calcium) 20 Mg Tablet, 20 MG PO QHS for 30 Days, TAB Prov:MYRA CABRALES 05/19/18 Reported Medications Latanoprost (Xalatan) 2.5 Ml Drops, 1 DROP BOTH EYES QHS, #1 BOTTLE 05/09/18 Nateglinide* (Nateglinide*) 60 Mg Tablet, 180 MG PO AC MEALS, TAB 05/09/18 Furosemide* (Furosemide*) 40 Mg Tablet, 40 MG PO BID, TAB 12/15/17 Levothyroxine Sodium* (Levothyroxine Sodium*) 75 Mcg Tablet, 75 MCG PO BEFORE BR EAKFAST, #30 TAB 10/27/17 Sitagliptin* (Januvia*) 50 Mg Tablet, 50 MG PO DAILY, #30 TAB 07/30/17 Isosorbide Mononitrate* (Isosorbide Mononitrate*) 60 Mg Tab.er.24h, 60 MG PO DAILY, TAB 07/30/17 Carvedilol* (Carvedilol*) 25 Mg Tablet, 25 MG PO BID, #60 TAB 07/30/17 Ticagrelor* (Brilinta*) 90 Mg Tablet, 90 MG PO Q12, TAB 07/30/17 Aspirin (Low Dose Aspirin) 81 Mg Tablet.dr, 81 MG PO DAILY, #30 TAB 07/30/17 Allopurinol* (Allopurinol*) 100 Mg Tablet, 100 MG PO DAILY, TAB 07/30/17 Discontinued Scripts Azithromycin* (Zithromax*) 250 Mg Tablet, 250 MG PO .ERROL DIRECTED, #6 TAB TAKE 500 MG (2 TABS) THE FIRST DAY THEN 250 MG (1 TAB) DAYS 2-5 Prov:OPAL REY MD 07/09/18 Medications Current Medications Aspirin (Halfprin) 81 mg DAILY PO Last administered on 07/18/18 08:20; Admin Dose 81 MG; Start 07/18/18 at 09:00 Atorvastatin Calcium (Lipitor) 20 mg QHS PO Last administered on 07/17/18at 21:25; Admin Dose 20 MG; Start 07/17/18 at 21:00 Carvedilol (Coreg) 25 mg BID PO Last administered on 07/18/18 08:19; Admin Dose 25 MG; Start 07/17/18 at 21:00 Hydralazine HCl (Apresoline) 50 mg Q8 PO Last administered on 07/18/18at 06:40; Admin Dose 50 MG; Start 07/17/18 at 14:30 Isosorbide Mononitrate (Imdur) 60 mg DAILY PO Last administered on 07/18/18 08:20; Admin Dose 60 MG; Start 07/18/18 at 09:00 Ticagrelor (Brilinta) 90 mg Q12 PO Last administered on 07/18/18 08:21; Admin Dose 90 MG; Start 07/17/18 at 21:00 Furosemide (Lasix) 40 mg BID DIURETICS IV Last administered on 07/18/18 06:41; Admin Dose 40 MG; Start 07/17/18 at 18:00 Albuterol/ Ipratropium (Duoneb) 3 ml Q6HWA RESP THERAPY HHN Last administered on 07/18/18 08:43; Admin Dose 3 ML; Start 07/17/18 at 20:00 Allopurinol (Zyloprim) 100 mg DAILY PO Last administered on 07/18/18at 08:19; Admin Dose 100 MG; Start 07/18/18 at 09:00 Latanoprost (Xalatan) 1 drop QHS BOTH EYES Last administered on 07/17/18at 21:25; Admin Dose 1 DROP; Start 07/17/18 at 21:00 Levothyroxine Sodium (Synthroid) 75 mcg BEFORE BREAKFAST PO Last administered on 07/18/18at 06:40; Admin Dose 75 MCG; Start 07/18/18 at 07:00 IV Flush (NS 3 ml) 3 ml PER PROTOCOL IV ; Start 07/17/18 at 17:30 Ondansetron HCl (Zofran Inj) 4 mg Q6H PRN IV NAUSEA/VOMITING; Start 07/17/18 at 17:30 Acetaminophen (Tylenol Tab) 650 mg Q6H PRN PO .PAIN 1-3 OR TEMP; Start 07/17/18 at 17:30 Docusate Sodium (Colace) 100 mg Q12H PRN PO .CONSTIPATION; Start 07/17/18 at 17:30 Bisacodyl (Dulcolax) 5 mg DAILY PRN PO .CONSTIPATION; Start 07/17/18 at 17:30 Pantoprazole (Protonix Tab) 40 mg DAILY@06 PO Last administered on 07/18/18at 06:40; Admin Dose 40 MG; Start 07/18/18 at 06:00 Diagnostic Test (Pha) (Accu-Chek) 1 ea 02 XX ; Start 07/18/18 at 02:00 Insulin Aspart (Novolog Insulin Pen) NOVOLOG *MILD* ALGORITHM WITH MEALS BEDTIME SC ; Start 07/17/18 at 21:00 Miscellaneous Information 1 ea NOTE XX ; Start 07/17/18 at 19:30 Glucose (Glutose) 15 gm Q15M PRN PO DECREASED GLUCOSE; Start 07/17/18 at 19:30 Glucose (Glutose) 22.5 gm Q15M PRN PO DECREASED GLUCOSE; Start 07/17/18 at 19:30 Dextrose (D50w Syringe) 25 ml Q15M PRN IV DECREASED GLUCOSE; Start 07/17/18 at 19:30 Dextrose (D50w Syringe) 50 ml Q15M PRN IV DECREASED GLUCOSE; Start 07/17/18 at 19:30 Glucagon (Glucagen) 1 mg Q15M PRN IM DECREASED GLUCOSE; Start 07/17/18 at 19:30 Glucose (Glutose) 15 gm Q15M PRN BUCCAL DECREASED GLUCOSE; Start 07/17/18 at 19:30 Assessment/Plan Hospital Course (Demo Recall) General: WN/WD/NAD, AOx 3 HEENT: Unicetric/atraumatic/EOMI (follow commands) NECK: JVD elevated, no thyromegaly Lymph: no lymphadenopathy HEART: regular with no S3, II/ systolic murmur at apex, device L side LUNGS: Coarse sounds ABD: soft, NT, ND, +BS : Intact Neuro: non focal SKIN: chronic changes EXT: trace edema DONNA MORALES MD Jul 18, 2018 09:41
--- NOTE | 2018-07-18 17:14 | PN ---
Date/Time of Note Date/Time of Note DATE: 07/18/18 TIME: 17:11 Assessment/Plan VTE Prophylaxis Risk score (from [facility] [place])>0 risk: 4 SCD applied (from [facility] [place]): Yes Pharmacological prophylaxis: NA/contraindicated Pharm contraindication: low risk/ambulating Lines/Catheters IV C[facility] Type (from [facility] Saline Lock Urinary Cath still in place: No Assessment/Plan Hospital Course 83-year-old male 1. Congestive heart failure exacerbation, systolic, acute on chronic. 2. Hx of cardiomyopathy with decreased left ventricular ejection fraction last ejection fraction approximately 30% by echo in 04/2018. 3. History of percutaneous transluminal coronary angioplasty and stent placement, most recently to RCA, PDA and left main in 06/2017. 4. Hypertension. 5. Dyslipidemia. 6. Diabetes mellitus. 7. Chronic kidney disease 8. Hypothyroidism. 9. Hypernatremia. 10. Increased liver function tests. 11. Increased BNP consistent with patient's congestive heart failure. 12 cKd stage III which has been stable Assessment/Plan -cwwith Lasix 40 IV twice daily -pt already received several courses of antibiotics - cw aspirin and statin Coreg/ imdur/brilinta -Abdominal ultrasound -fu With cards recs Result Diagram: 07/18/18 0545 07/18/18 0545 Results 24hrs Laboratory Tests Test 07/17/18 18:04 07/17/18 18:06 07/17/18 21:27 07/18/18 00:43 Creatine Kinase 39 34 Creatine Kinase 2.9 2.4 Index Creatinine Kinase MB 1.13 0.81 (Mass) Troponin I 0.035 0.044 Bedside Glucose 178 123 Test 07/18/18 05:45 07/18/18 08:11 07/18/18 11:53 White Blood Count 6.4 Red Blood Count 3.83 L Hemoglobin 10.3 L Hematocrit 32.1 L Mean Corpuscular 83.8 Volume Mean Corpuscular 26.9 L Hemoglobin Mean Corpuscular 32.1 Hemoglobin Concent Red Cell 18.1 H Distribution Width Platelet Count 133 L Mean Platelet Volume 11.0 H Immature 3.700 H Granulocytes % Neutrophils % 53.7 Lymphocytes % 33.1 Monocytes % 8.4 Eosinophils % 0.9 Basophils % 0.2 Nucleated Red Blood 0.0 Cells % Immature 0.240 H Granulocytes # Neutrophils # 3.5 Lymphocytes # 2.1 Monocytes # 0.5 Eosinophils # 0.1 Basophils # 0.0 Nucleated Red Blood 0.0 Cells # Sodium Level 145 H Potassium Level 3.5 Chloride Level 103 Carbon Dioxide Level 29 Anion Gap 13 Blood Urea Nitrogen 25 H Creatinine 1.51 H Est Glomerular Filtrat Rate mL/min Glucose Level 137 Calcium Level 9.0 Creatine Kinase 34 Creatine Kinase 2.3 Index Creatinine Kinase MB 0.78 (Mass) Troponin I 0.044 Triglycerides Level 80 Cholesterol Level 132 LDL Cholesterol, 74 Calculated HDL Cholesterol 42 Cholesterol/HDL 3.1 Ratio Bedside Glucose 130 250 H Subjective 24 Hr Interval Summary Free Text/Dictation Feels slightly better today in terms of shortness of breath Patient has some left upper quadrant pain Exam/Review of Systems Exam Vitals Vital Signs Date Temp Pulse Resp B/P (MAP) Pulse Ox O2 O2 Flow FiO2 Time Delivery Rate 07/18/18 70 16:03 07/18/18 98.4 18 138/74 98 15:25 (95) 07/18/18 Nasal 2.0 28 13:31 Cannula Intake and Output 07/17/18 07/17/18 07/18/18 1515:00 23:00 07:00 IntakeIntake Total 450 ml 200 ml OutputOutput Total 1100 ml BalanceBalance -1100 ml 450 ml 200 ml Exam onstitutional: alert, oriented Neck: supple Respiratory: few crackles bilaterally Cardiovascular: regular rate and rhythm Gastrointestinal: soft Results Results 24hrs Laboratory Tests Test 07/17/18 18:04 07/17/18 18:06 07/17/18 21:27 07/18/18 00:43 Creatine Kinase 39 34 Creatine Kinase 2.9 2.4 Index Creatinine Kinase MB 1.13 0.81 (Mass) Troponin I 0.035 0.044 Bedside Glucose 178 123 Test 07/18/18 05:45 07/18/18 08:11 07/18/18 11:53 White Blood Count 6.4 Red Blood Count 3.83 L Hemoglobin 10.3 L Hematocrit 32.1 L Mean Corpuscular 83.8 Volume Mean Corpuscular 26.9 L Hemoglobin Mean Corpuscular 32.1 Hemoglobin Concent Red Cell 18.1 H Distribution Width Platelet Count 133 L Mean Platelet Volume 11.0 H Immature 3.700 H Granulocytes % Neutrophils % 53.7 Lymphocytes % 33.1 Monocytes % 8.4 Eosinophils % 0.9 Basophils % 0.2 Nucleated Red Blood 0.0 Cells % Immature 0.240 H Granulocytes # Neutrophils # 3.5 Lymphocytes # 2.1 Monocytes # 0.5 Eosinophils # 0.1 Basophils # 0.0 Nucleated Red Blood 0.0 Cells # Sodium Level 145 H Potassium Level 3.5 Chloride Level 103 Carbon Dioxide Level 29 Anion Gap 13 Blood Urea Nitrogen 25 H Creatinine 1.51 H Est Glomerular Filtrat Rate mL/min Glucose Level 137 Calcium Level 9.0 Creatine Kinase 34 Creatine Kinase 2.3 Index Creatinine Kinase MB 0.78 (Mass) Troponin I 0.044 Triglycerides Level 80 Cholesterol Level 132 LDL Cholesterol, 74 Calculated HDL Cholesterol 42 Cholesterol/HDL 3.1 Ratio Bedside Glucose 130 250 H Medications Medication Current Medications Aspirin (Halfprin) 81 mg DAILY PO Last administered on 07/18/18 08:20; Admin Dose 81 MG; Start 07/18/18 at 09:00 Atorvastatin Calcium (Lipitor) 20 mg QHS PO Last administered on 07/17/18 21:25; Admin Dose 20 MG; Start 07/17/18 at 21:00 Carvedilol (Coreg) 25 mg BID PO Last administered on 07/18/18 08:19; Admin Dose 25 MG; Start 07/17/18 at 21:00 Hydralazine HCl (Apresoline) 50 mg Q8 PO Last administered on 07/18/18 14:42; Admin Dose 50 MG; Start 07/17/18 at 14:30 Isosorbide Mononitrate (Imdur) 60 mg DAILY PO Last administered on 07/18/18 08:20; Admin Dose 60 MG; Start 07/18/18 at 09:00 Ticagrelor (Brilinta) 90 mg Q12 PO Last administered on 07/18/18 08:21; Admin Dose 90 MG; Start 07/17/18 at 21:00 Furosemide (Lasix) 40 mg BID DIURETICS IV Last administered on 07/18/18 06:41; Admin Dose 40 MG; Start 07/17/18 at 18:00 Albuterol/ Ipratropium (Duoneb) 3 ml Q6HWA RESP THERAPY HHN Last administered on 07/18/18 13:29; Admin Dose 3 ML; Start 07/17/18 at 20:00 Allopurinol (Zyloprim) 100 mg DAILY PO Last administered on 1/29/19at 08:19; Admin Dose 100 MG; Start 07/18/18 at 09:00 Latanoprost (Xalatan) 1 drop QHS BOTH EYES Last administered on 07/17/18at 21:25; Admin Dose 1 DROP; Start 07/17/18 at 21:00 Levothyroxine Sodium (Synthroid) 75 mcg BEFORE BREAKFAST PO Last administered on 07/18/18at 06:40; Admin Dose 75 MCG; Start 07/18/18 at 07:00 IV Flush (NS 3 ml) 3 ml PER PROTOCOL IV ; Start 07/17/18 at 17:30 Ondansetron HCl (Zofran Inj) 4 mg Q6H PRN IV NAUSEA/VOMITING; Start 07/17/18 at 17:30 Acetaminophen (Tylenol Tab) 650 mg Q6H PRN PO .PAIN 1-3 OR TEMP Last administered on 07/18/18at 14:38; Admin Dose 650 MG; Start 07/17/18 at 17:30 Docusate Sodium (Colace) 100 mg Q12H PRN PO .CONSTIPATION; Start 07/17/18 at 17:30 Bisacodyl (Dulcolax) 5 mg DAILY PRN PO .CONSTIPATION; Start 07/17/18 at 17:30 Pantoprazole (Protonix Tab) 40 mg DAILY@06 PO Last administered on 07/18/18at 06:40; Admin Dose 40 MG; Start 07/18/18 at 06:00 Diagnostic Test (Pha) (Accu-Chek) 1 ea 02 XX ; Start 07/18/18 at 02:00 Insulin Aspart (Novolog Insulin Pen) NOVOLOG *MILD* ALGORITHM WITH MEALS BEDTIME SC Last administered on 07/18/18at 12:08; Admin Dose 3 UNIT; Start 07/17/18 at 21:00 Miscellaneous Information 1 ea NOTE XX ; Start 07/17/18 at 19:30 Glucose (Glutose) 15 gm Q15M PRN PO DECREASED GLUCOSE; Start 07/17/18 at 19:30 Glucose (Glutose) 22.5 gm Q15M PRN PO DECREASED GLUCOSE; Start 07/17/18 at 19:30 Dextrose (D50w Syringe) 25 ml Q15M PRN IV DECREASED GLUCOSE; Start 07/17/18 at 19:30 Dextrose (D50w Syringe) 50 ml Q15M PRN IV DECREASED GLUCOSE; Start 07/17/18 at 19:30 Glucagon (Glucagen) 1 mg Q15M PRN IM DECREASED GLUCOSE; Start 07/17/18 at 19:30 Glucose (Glutose) 15 gm Q15M PRN BUCCAL DECREASED GLUCOSE; Start 07/17/18 at 19:30 MERT BENITEZ MD Jul 18, 2018 17:14
--- NOTE | 2018-07-18 18:26 | NUR ---
EOSS: Patient is AAOx4, O2 sat 98% on RA. VSS, c/o LLQ abdominal pain. Tylenol administered - Pt verbalized relief of pain. Dr. Pederson made aware - US Abdomen ordered. Lasix IV 40 mg administered. SR on the monitor. Hourly rounding done, fall precautions initiated, all needs attended to. Pt is stable - will endorse to oncoming shift.
[2018-07-18] MEDS ORDERED: ZOLPIDEM 5 MG TAB PO PRN (20:00)
[2018-07-18] MEDS ORDERED: traMADol 50 MG TAB PO PRN (20:00)
[2018-07-18] MEDS: ATORVASTATIN 20 MG TAB PO SCH (21:14)
[2018-07-18] MEDS: LATANOPROST 0.005% 2.5 ML OPH BOTH EYES SCH (21:15)
[2018-07-19] VITALS (13 sets, daily range): BP systolic 109–148; BP diastolic 59–82; PULSE 60–80; RESP 18–20
[2018-07-19] MEDS: ACCU-CHEK XX SCH (02:00)
[2018-07-19] MEDS: PANTOPRAZOLE (EC) 40 MG TAB PO SCH (05:52)
[2018-07-19] MEDS: LEVOTHYROXINE 75 MCG TAB PO SCH (05:52)
[2018-07-19] MEDS: FUROSEMIDE 40 MG INJ IV SCH (05:52)
--- NOTE | 2018-07-19 06:42 | NUR ---
EOSS: PATIENT COMPLAINED OR LEFT LOWER QUADRANT PAIN , RELIEF WITH PRN MED. NO ACUTE EVENTS OVERNIGHT. CONTINUE WITH PLAN OF CARE.
[2018-07-19] MEDS: ALLOPURINOL 100 MG TAB PO SCH (08:07)
[2018-07-19] MEDS: ISOSORBIDE MONONITRATE(SR)60 MG TAB PO SCH (08:07)
[2018-07-19] MEDS: ASPIRIN (EC) 81 MG TAB PO SCH (08:08)
[2018-07-19] MEDS: TICAGRELOR 90 MG TABLET PO SCH ×2 (08:12→20:24)
[2018-07-19] MEDS: INSULIN ASPART [NOVOLOG] 3 ML PEN SC SCH ×4 (08:12→20:16)
--- NOTE | 2018-07-19 08:49 | NUR ---
MESSAGE LEFT WITH DR BENITEZ IN REGARDS TO POSITIVE MRSA NARES.
[2018-07-19] MEDS: ALBUTEROL/IPRATROPIUM (NEB) 3 ML AMP HHN SCH ×3 (08:54→20:37)
[2018-07-19] MEDS: MUPIROCIN 2% 22 GM OINT TOP SCH ×2 (10:32→20:17)
[2018-07-19] MEDS ORDERED: POTASSIUM CHLORIDE (SR) 20 MEQ TAB PO STA (10:37)
--- NOTE | 2018-07-19 12:06 | PN ---
Date/Time of Note Date/Time of Note DATE: 07/19/18 TIME: 12:03 Assessment/Plan VTE Prophylaxis Risk score (from Ns)>0 risk: 5 SCD applied (from Ns): Yes Pharmacological prophylaxis: NA/contraindicated Pharm contraindication: low risk/ambulating Lines/Catheters IV Catheter Type (from [facility]): [place] [facility] Urinary Cath still in place: No Assessment/Plan Hospital Course 83-year-old male 1. Congestive heart failure exacerbation, systolic, acute on chronic. 2. Hx of cardiomyopathy with decreased left ventricular ejection fraction last ejection fraction approximately 30% by echo in 04/2018. 3. History of percutaneous transluminal coronary angioplasty and stent placement, most recently to RCA, PDA and left main in 06/2017. 4. Hypertension. 5. Dyslipidemia. 6. Diabetes mellitus. 7. Chronic kidney disease 8. Hypothyroidism. 9. Hypernatremia. 10. Increased liver function tests. 11. Increased BNP consistent with patient's congestive heart failure. 12 cKd stage III which has been stable now worsening creatinine likely secondary to overdiuresis 13 lower quadrant pain rule out colitis/diverticulitis Assessment/Plan -DEC Lasix to 40 IV daily due to worsening renal disease -CT of the abdomen and pelvis withOUT contrast -ABD ultrasound just showed some hepatomegaly -pt already received several courses of antibiotics - cw aspirin and statin Coreg/ imdur/brilinta -fu With cards recs - + mrsa > bactroban Result Diagram: 07/18/18 0545 07/19/18 0605 Results 24hrs Laboratory Tests Test 07/18/18 17:30 07/18/18 21:13 07/19/18 06:05 07/19/18 07:55 Bedside Glucose 102 149 141 Sodium Level 143 Potassium Level 3.4 L Chloride Level 103 Carbon Dioxide Level 27 Anion Gap 13 Blood Urea Nitrogen 35 H Creatinine 2.00 H Est Glomerular Filtrat Rate mL/min Glucose Level 130 Calcium Level 9.1 Test 07/19/18 11:39 Bedside Glucose 158 Subjective 24 Hr Interval Summary Free Text/Dictation Patient patient has pain now in the left lower quadrant. BREATHING is much improved Net -900 mL Exam/Review of Systems Exam Vitals Vital Signs Date Temp Pulse Resp B/P (MAP) Pulse Ox O2 O2 Flow FiO2 Time Delivery Rate 07/19/18 70 12:02 07/19/18 98.2 20 120/72 96 11:14 (88) 07/19/18 Nasal 1.0 08:55 Cannula 07/18/18 28 13:31 Intake and Output 07/18/18 07/18/18 07/19/18 1515:00 23:00 07:00 IntakeIntake Total 900 ml 600 ml OutputOutput Total 1200 ml 1200 ml BalanceBalance -300 ml -600 ml Exam nstitutional: alert, oriented Neck: supple Respiratory: CLEAR To auscultate Cardiovascular: regular rate and rhythm Gastrointestinal: soft, tenderness present in the left lower quadrant Results Results 24hrs Laboratory Tests Test 07/18/18 17:30 07/18/18 21:13 07/19/18 06:05 07/19/18 07:55 Bedside Glucose 102 149 141 Sodium Level 143 Potassium Level 3.4 L Chloride Level 103 Carbon Dioxide Level 27 Anion Gap 13 Blood Urea Nitrogen 35 H Creatinine 2.00 H Est Glomerular Filtrat Rate mL/min Glucose Level 130 Calcium Level 9.1 Test 07/19/18 11:39 Bedside Glucose 158 Medications Medication Current Medications Aspirin (Halfprin) 81 mg DAILY PO Last administered on 07/19/18 08:08; Admin Dose 81 MG; Start 07/18/18 at 09:00 Atorvastatin Calcium (Lipitor) 20 mg QHS PO Last administered on 07/18/18 21:14; Admin Dose 20 MG; Start 07/17/18 at 21:00 Carvedilol (Coreg) 25 mg BID PO Last administered on 07/19/18 08:08; Admin Dose 25 MG; Start 07/17/18 at 21:00 Hydralazine HCl (Apresoline) 50 mg Q8 PO Last administered on 07/18/18 21:15; Admin Dose 50 MG; Start 07/17/18 at 14:30 Isosorbide Mononitrate (Imdur) 60 mg DAILY PO Last administered on 07/19/18 08:07; Admin Dose 60 MG; Start 07/18/18 at 09:00 Ticagrelor (Brilinta) 90 mg Q12 PO Last administered on 07/19/18 08:12; Admin Dose 90 MG; Start 07/17/18 at 21:00 Albuterol/ Ipratropium (Duoneb) 3 ml Q6HWA RESP THERAPY HHN Last administered on 1/30/19at 08:54; Admin Dose 3 ML; Start 07/17/18 at 20:00 Allopurinol (Zyloprim) 100 mg DAILY PO Last administered on 07/19/18at 08:07; Admin Dose 100 MG; Start 07/18/18 at 09:00 Latanoprost (Xalatan) 1 drop QHS BOTH EYES Last administered on 07/18/18at 21:15; Admin Dose 1 DROP; Start 07/17/18 at 21:00 Levothyroxine Sodium (Synthroid) 75 mcg BEFORE BREAKFAST PO Last administered on 07/19/18at 05:52; Admin Dose 75 MCG; Start 07/18/18 at 07:00 IV Flush (NS 3 ml) 3 ml PER PROTOCOL IV ; Start 07/17/18 at 17:30 Ondansetron HCl (Zofran Inj) 4 mg Q6H PRN IV NAUSEA/VOMITING; Start 07/17/18 at 17:30 Acetaminophen (Tylenol Tab) 650 mg Q6H PRN PO .PAIN 1-3 OR TEMP Last administered on 07/18/18at 14:38; Admin Dose 650 MG; Start 07/17/18 at 17:30 Docusate Sodium (Colace) 100 mg Q12H PRN PO .CONSTIPATION; Start 07/17/18 at 17:30 Bisacodyl (Dulcolax) 5 mg DAILY PRN PO .CONSTIPATION; Start 07/17/18 at 17:30 Pantoprazole (Protonix Tab) 40 mg DAILY@06 PO Last administered on 07/19/18at 05:52; Admin Dose 40 MG; Start 07/18/18 at 06:00 Diagnostic Test (Pha) (Accu-Chek) 1 ea 02 XX ; Start 07/18/18 at 02:00 Insulin Aspart (Novolog Insulin Pen) NOVOLOG *MILD* ALGORITHM WITH MEALS BEDTIME SC Last administered on 07/19/18at 08:12; Admin Dose 1 UNIT; Start 07/17/18 at 21:00 Miscellaneous Information 1 ea NOTE XX ; Start 07/17/18 at 19:30 Glucose (Glutose) 15 gm Q15M PRN PO DECREASED GLUCOSE; Start 07/17/18 at 19:30 Glucose (Glutose) 22.5 gm Q15M PRN PO DECREASED GLUCOSE; Start 07/17/18 at 19:30 Dextrose (D50w Syringe) 25 ml Q15M PRN IV DECREASED GLUCOSE; Start 07/17/18 at 19:30 Dextrose (D50w Syringe) 50 ml Q15M PRN IV DECREASED GLUCOSE; Start 07/17/18 at 19:30 Glucagon (Glucagen) 1 mg Q15M PRN IM DECREASED GLUCOSE; Start 07/17/18 at 19:30 Glucose (Glutose) 15 gm Q15M PRN BUCCAL DECREASED GLUCOSE; Start 07/17/18 at 19:30 Tramadol HCl (Ultram) 50 mg Q6H PRN PO MODERATE PAIN LEVEL 4-6 Last administe red on 07/18/18at 20:07; Admin Dose 50 MG; Start 07/18/18 at 20:00 Zolpidem Tartrate (Ambien) 5 mg HS MAY REPEAT X 1 PRN PO INSOMNIA Last administered on 07/18/18at 21:15; Admin Dose 5 MG; Start 07/18/18 at 20:00 Mupirocin (Bactroban) 1 applic BID TOP Last administered on 07/19/18at 10:32; Admin Dose 1 APPLIC; Start 07/19/18 at 11:30 Furosemide (Lasix) 40 mg DAILY IV ; Start 07/20/18 at 09:00 MERT BENITEZ MD Jul 19, 2018 12:06
--- NOTE | 2018-07-19 14:12 | CONS ---
Assessment/Plan Assessment/Plan Assessment/Plan (Daily) IMPRESSION: 1. Congestive heart failure exacerbation, systolic, acute on chronic.-neg trop x 3. Improving volume status 2. Cardiomyopathy with decreased left ventricular ejection fraction last eject ion fraction approximately 30% by echo in 04/2018. 3. History of percutaneous transluminal coronary angioplasty and stent placement, most recently to RCA, PDA and left main in 06/2017. 4. Hypertension. 5. Dyslipidemia. 6. Diabetes mellitus. 7. Chronic kidney disease, not on hemodialysis. 8. Hypothyroidism. 9. Hypernatremia. 10. Increased liver function tests. 11. Increased BNP consistent with patient's congestive heart failure. 12. Abd pain-abd NAY unrevealing Recc: -Tele -Contineu asa/brilinta -Continue coreg/hydralazine -Lasix decreased to daily. Follow volume status closely -pnding abd CT secondary to abd pain Consultation Date/Type/Reason Admit Date/Time Jul 17, 2018 at 12:26 Initial Consult Date 07/17/2018 Type of Consult Cardiology Reason for Consultation CHF Requesting Provider: MERT BENITEZ MD Date/Time of Note DATE: 07/19/18 TIME: 14:06 Exam/Review of Systems Vital Signs Vitals Vital Signs Date Temp Pulse Resp B/P (MAP) Pulse Ox O2 O2 Flow FiO2 Time Delivery Rate 07/19/18 76 16 96 21 13:24 07/19/18 98.2 120/72 11:14 (88) 07/19/18 Nasal 1.0 08:55 Cannula Intake and Output 07/18/18 07/18/18 07/19/18 1515:00 23:00 07:00 IntakeIntake Total 900 ml 600 ml OutputOutput Total 1200 ml 1200 ml BalanceBalance -300 ml -600 ml Exam Exam Review of Systems: CONSTITUTIONAL: No fevers, chills. PULMONARY: mild sob CARDIOVASCULAR: No chest pain/palpitations GASTROINTESTINAL: No nausea/vomiting. GENITOURINARY: No hematuria/dysuria. MUSCULOSKELETAL: No myagias/arthalgias. PSYCHIATRIC: The patient denies depression. NEUROLOGIC: No weakness Constitutional: alert, oriented Psych: no complaints Head: normocephalic ENMT: mucosa pink and moist Neck: supple, jvd Respiratory: diminished breath sounds Cardiovascular: regular rate and rhythm Gastrointestinal: soft, non-tender Musculoskeletal: muscle tone (normal) Extremities: edema (none) Labs Result Diagram: 07/18/18 0545 07/19/18 0605 Results 24hrs Laboratory Tests Test 07/18/18 17:30 07/18/18 21:13 07/19/18 06:05 07/19/18 07:55 Bedside Glucose 102 149 141 Sodium Level 143 Potassium Level 3.4 L Chloride Level 103 Carbon Dioxide Level 27 Anion Gap 13 Blood Urea Nitrogen 35 H Creatinine 2.00 H Est Glomerular Filtrat Rate mL/min Glucose Level 130 Calcium Level 9.1 Test 07/19/18 11:39 Bedside Glucose 158 Medications Medications Current Medications Aspirin (Halfprin) 81 mg DAILY PO Last administered on 07/19/18 08:08; Admin Dose 81 MG; Start 07/18/18 at 09:00 Atorvastatin Calcium (Lipitor) 20 mg QHS PO Last administered on 07/18/18 21:14; Admin Dose 20 MG; Start 07/17/18 at 21:00 Carvedilol (Coreg) 25 mg BID PO Last administered on 07/19/18 08:08; Admin Dose 25 MG; Start 07/17/18 at 21:00 Hydralazine HCl (Apresoline) 50 mg Q8 PO Last administered on 07/18/18 21:15; Admin Dose 50 MG; Start 07/17/18 at 14:30 Isosorbide Mononitrate (Imdur) 60 mg DAILY PO Last administered on 07/19/18 08:07; Admin Dose 60 MG; Start 07/18/18 at 09:00 Ticagrelor (Brilinta) 90 mg Q12 PO Last administered on 07/19/18 08:12; Admin Dose 90 MG; Start 07/17/18 at 21:00 Albuterol/ Ipratropium (Duoneb) 3 ml Q6HWA RESP THERAPY HHN Last administered on 07/19/18 13:24; Admin Dose 3 ML; Start 07/17/18 at 20:00 Allopurinol (Zyloprim) 100 mg DAILY PO Last administered on 07/19/18 08:07; Admin Dose 100 MG; Start 07/18/18 at 09:00 Latanoprost (Xalatan) 1 drop QHS BOTH EYES Last administered on 07/18/18 21:15; Admin Dose 1 DROP; Start 07/17/18 at 21:00 Levothyroxine Sodium (Synthroid) 75 mcg BEFORE BREAKFAST PO Last administered on 07/19/18at 05:52; Admin Dose 75 MCG; Start 07/18/18 at 07:00 IV Flush (NS 3 ml) 3 ml PER PROTOCOL IV ; Start 07/17/18 at 17:30 Ondansetron HCl (Zofran Inj) 4 mg Q6H PRN IV NAUSEA/VOMITING; Start 07/17/18 at 17:30 Acetaminophen (Tylenol Tab) 650 mg Q6H PRN PO .PAIN 1-3 OR TEMP Last administered on 07/18/18at 14:38; Admin Dose 650 MG; Start 07/17/18 at 17:30 Docusate Sodium (Colace) 100 mg Q12H PRN PO .CONSTIPATION; Start 07/17/18 at 17:30 Bisacodyl (Dulcolax) 5 mg DAILY PRN PO .CONSTIPATION; Start 07/17/18 at 17:30 Pantoprazole (Protonix Tab) 40 mg DAILY@06 PO Last administered on 07/19/18at 05:52; Admin Dose 40 MG; Start 07/18/18 at 06:00 Diagnostic Test (Pha) (Accu-Chek) 1 ea 02 XX ; Start 07/18/18 at 02:00 Insulin Aspart (Novolog Insulin Pen) NOVOLOG *MILD* ALGORITHM WITH MEALS BEDTIME SC Last administered on 07/19/18at 08:12; Admin Dose 1 UNIT; Start 07/17/18 at 21:00 Miscellaneous Information 1 ea NOTE XX ; Start 07/17/18 at 19:30 Glucose (Glutose) 15 gm Q15M PRN PO DECREASED GLUCOSE; Start 07/17/18 at 19:30 Glucose (Glutose) 22.5 gm Q15M PRN PO DECREASED GLUCOSE; Start 07/17/18 at 19:30 Dextrose (D50w Syringe) 25 ml Q15M PRN IV DECREASED GLUCOSE; Start 07/17/18 at 19:30 Dextrose (D50w Syringe) 50 ml Q15M PRN IV DECREASED GLUCOSE; Start 07/17/18 at 19:30 Glucagon (Glucagen) 1 mg Q15M PRN IM DECREASED GLUCOSE; Start 07/17/18 at 19:30 Glucose (Glutose) 15 gm Q15M PRN BUCCAL DECREASED GLUCOSE; Start 07/17/18 at 19:30 Tramadol HCl (Ultram) 50 mg Q6H PRN PO MODERATE PAIN LEVEL 4-6 Last administered on 07/18/18at 20:07; Admin Dose 50 MG; Start 07/18/18 at 20:00 Zolpidem Tartrate (Ambien) 5 mg HS MAY REPEAT X 1 PRN PO INSOMNIA Last administered on 07/18/18at 21:15; Admin Dose 5 MG; Start 07/18/18 at 20:00 Mupirocin (Bactroban) 1 applic BID TOP Last administered on 07/19/18at 10:32; Admin Dose 1 APPLIC; Start 07/19/18 at 11:30 Furosemide (Lasix) 40 mg DAILY IV ; Start 07/20/18 at 09:00 ELEANOR ROLDAN Jul 19, 2018 14:12
--- NOTE | 2018-07-19 19:27 | NUR ---
EOSS: no significant change of condition, continue with current plan of care.
[2018-07-19] MEDS: LATANOPROST 0.005% 2.5 ML OPH BOTH EYES SCH (20:15)
[2018-07-19] MEDS: ATORVASTATIN 20 MG TAB PO SCH (20:16)
[2018-07-20] VITALS (11 sets, daily range): BP systolic 126–160; BP diastolic 61–81; PULSE 67–77; RESP 19–22
[2018-07-20] MEDS: ACCU-CHEK XX SCH (01:53)
[2018-07-20] MEDS: PANTOPRAZOLE (EC) 40 MG TAB PO SCH (06:19)
[2018-07-20] MEDS: LEVOTHYROXINE 75 MCG TAB PO SCH (06:20)
--- NOTE | 2018-07-20 06:50 | NUR ---
end of shift: patient is alert and oriented, SR/V-paced on monitor, ambulates w/ assist, on isolation for MRSA nares; no acute events overnight, needs attended, will endorse to dayshift nurse
[2018-07-20] MEDS: ALBUTEROL/IPRATROPIUM (NEB) 3 ML AMP HHN SCH ×3 (07:44→20:19)
[2018-07-20] MEDS: INSULIN ASPART [NOVOLOG] 3 ML PEN SC SCH ×4 (07:55→20:36)
[2018-07-20] MEDS ORDERED: FUROSEMIDE 40 MG INJ IV SCH (09:00)
[2018-07-20] MEDS: ALLOPURINOL 100 MG TAB PO SCH (09:47)
[2018-07-20] MEDS: ASPIRIN (EC) 81 MG TAB PO SCH (09:48)
[2018-07-20] MEDS: ISOSORBIDE MONONITRATE(SR)60 MG TAB PO SCH (09:48)
[2018-07-20] MEDS: MUPIROCIN 2% 22 GM OINT TOP SCH ×2 (09:49→20:52)
[2018-07-20] MEDS: TICAGRELOR 90 MG TABLET PO SCH ×2 (09:55→21:03)
--- NOTE | 2018-07-20 11:40 | CONS ---
Assessment/Plan Cardiology Heart Failure Type: Acute on Chronic Heart Failure Type: Systolic Assessment/Plan Hospital Course (Demo Recall) IMPRESSION: 1. Congestive heart failure exacerbation, systolic, acute on chronic.-neg trop x 3. Improving volume status 2. Cardiomyopathy with decreased left ventricular ejection fraction last ejection fraction approximately 30% by echo in 04/2018. 3. History of percutaneous transluminal coronary angioplasty and stent placement, most recently to RCA, PDA and left main in 06/2017. 4. Hypertension. 5. Dyslipidemia. 6. Diabetes mellitus. 7. Chronic kidney disease, not on hemodialysis. 8. Hypothyroidism. 9. Hypernatremia. 10. Increased liver function tests. 11. Increased BNP consistent with patient's congestive heart failure. 12. Abd pain-abd NAY unrevealing. Abd CT with cholelithiasis Recc: -Tele -Contineu asa/brilinta -Continue coreg/hydralazine -Lasix decreased to daily. Follow volume status closely and would d/c back on lasix 40 po bid -ambulation -d/c planning Consultation Date/Type/Reason Admit Date/Time Jul 17, 2018 at 12:26 Initial Consult Date 07/17/2018 Type of Consult Cardiology Reason for Consultation CHF Requesting Provider: MERT BENITEZ MD Date/Time of Note DATE: 07/20/18 TIME: 11:37 Exam/Review of Systems Vital Signs Vitals Vital Signs Date Temp Pulse Resp B/P (MAP) Pulse Ox O2 O2 Flow FiO2 Time Delivery Rate 07/20/18 98.0 76 20 126/65 96 Room Air 11:16 (85) 07/20/18 21 07:45 07/19/18 1.0 08:55 Intake and Output 07/19/18 07/19/18 07/20/18 1515:00 23:00 07:00 IntakeIntake Total 850 ml 350 ml OutputOutput Total 650 ml 400 ml BalanceBalance 200 ml -50 ml Exam Exam Review of Systems: CONSTITUTIONAL: No fevers, chills. PULMONARY: No sob CARDIOVASCULAR: No chest pain/palpitations GASTROINTESTINAL: No nausea/vomiting. GENITOURINARY: No hematuria/dysuria. MUSCULOSKELETAL: No myagias/arthalgias. PSYCHIATRIC: The patient denies depression. NEUROLOGIC: No weakness Constitutional: alert Psych: no complaints Head: normocephalic ENMT: mucosa pink and moist Neck: supple, jvd (9 cm water) Respiratory: clear to auscultation Cardiovascular: regular rate and rhythm Gastrointestinal: soft, non-tender Musculoskeletal: muscle tone (normal) Extremities: edema (none) Labs Result Diagram: 07/20/1862607/20/18626 Results 24hrs Laboratory Tests Test 07/19/18 11:39 07/19/18 17:42 07/19/18 17:44 07/19/18 20:15 Bedside Glucose 158 266 H 167 142 Test 07/20/18 06:27 07/20/18 08:02 White Blood Count 5.2 Red Blood Count 4.15 L Hemoglobin 11.1 L Hematocrit 34.7 L Mean Corpuscular 83.6 Volume Mean Corpuscular 26.7 L Hemoglobin Mean Corpuscular 32.0 Hemoglobin Concent Red Cell 17.8 H Distribution Width Platelet Count 132 L Mean Platelet Volume 10.3 Immature 1.300 H Granulocytes % Neutrophils % 56.9 Lymphocytes % 33.4 Monocytes % 6.9 Eosinophils % 1.3 Basophils % 0.2 Nucleated Red Blood 0.0 Cells % Immature 0.070 H Granulocytes # Neutrophils # 3.0 Lymphocytes # 1.7 Monocytes # 0.4 Eosinophils # 0.1 Basophils # 0.0 Nucleated Red Blood 0.0 Cells # Sodium Level 145 H Potassium Level 4.0 Chloride Level 108 Carbon Dioxide Level 26 Anion Gap 11 Blood Urea Nitrogen 36 H Creatinine 1.80 H Est Glomerular Filtrat Rate mL/min Glucose Level 123 Calcium Level 9.2 Phosphorus Level 4.0 Magnesium Level 2.3 Bedside Glucose 137 Medications Medications Current Medications Aspirin (Halfprin) 81 mg DAILY PO Last administered on 07/20/18at 09:48; Admin Dose 81 MG; Start 07/18/18 at 09:00 Atorvastatin Calcium (Lipitor) 20 mg QHS PO Last administered on 07/19/18at 20:16; Admin Dose 20 MG; Start 07/17/18 at 21:00 Carvedilol (Coreg) 25 mg BID PO Last administered on 07/20/18at 09:48; Admin Dose 25 MG; Start 07/17/18 at 21:00 Hydralazine HCl (Apresoline) 50 mg Q8 PO Last administered on 07/20/18at 06:19; Admin Dose 50 MG; Start 07/17/18 at 14:30 Isosorbide Mononitrate (Imdur) 60 mg DAILY PO Last administered on 07/20/18at 09:48; Admin Dose 60 MG; Start 07/18/18 at 09:00 Ticagrelor (Brilinta) 90 mg Q12 PO Last administered on 07/20/18at 09:55; Admin Dose 90 MG; Start 07/17/18 at 21:00 Albuterol/ Ipratropium (Duoneb) 3 ml Q6HWA RESP THERAPY HHN Last administered on 07/20/18at 07:44; Admin Dose 3 ML; Start 07/17/18 at 20:00 Allopurinol (Zyloprim) 100 mg DAILY PO Last administered on 07/20/18 09:47; Admin Dose 100 MG; Start 07/18/18 at 09:00 Latanoprost (Xalatan) 1 drop QHS BOTH EYES Last administered on 07/19/18at 20:15; Admin Dose 1 DROP; Start 07/17/18 at 21:00 Levothyroxine Sodium (Synthroid) 75 mcg BEFORE BREAKFAST PO Last administered on 07/20/18at 06:20; Admin Dose 75 MCG; Start 07/18/18 at 07:00 IV Flush (NS 3 ml) 3 ml PER PROTOCOL IV ; Start 07/17/18 at 17:30 Ondansetron HCl (Zofran Inj) 4 mg Q6H PRN IV NAUSEA/VOMITING; Start 07/17/18 at 17:30 Acetaminophen (Tylenol Tab) 650 mg Q6H PRN PO .PAIN 1-3 OR TEMP Last administered on 07/18/18at 14:38; Admin Dose 650 MG; Start 07/17/18 at 17:30 Docusate Sodium (Colace) 100 mg Q12H PRN PO .CONSTIPATION; Start 07/17/18 at 17:30 Bisacodyl (Dulcolax) 5 mg DAILY PRN PO .CONSTIPATION; Start 07/17/18 at 17:30 Pantoprazole (Protonix Tab) 40 mg DAILY@06 PO Last administered on 07/20/18at 06:19; Admin Dose 40 MG; Start 07/18/18 at 06:00 Diagnostic Test (Pha) (Accu-Chek) 1 02 XX ; Start 07/18/18 at 02:00 Insulin Aspart (Novolog Insulin Pen) NOVOLOG *MILD* ALGORITHM WITH MEALS BEDTIME SC Last administered on 07/19/18at 17:48; Admin Dose 1 UNIT; Start 07/17/18 at 21:00 Miscellaneous Information 1 ea NOTE XX ; Start 07/17/18 at 19:30 Glucose (Glutose) 15 gm Q15M PRN PO DECREASED GLUCOSE; Start 07/17/18 at 19:30 Glucose (Glutose) 22.5 gm Q15M PRN PO DECREASED GLUCOSE; Start 07/17/18 at 19:30 Dextrose (D50w Syringe) 25 ml Q15M PRN IV DECREASED GLUCOSE; Start 07/17/18 at 19:30 Dextrose (D50w Syringe) 50 ml Q15M PRN IV DECREASED GLUCOSE; Start 07/17/18 at 19:30 Glucagon (Glucagen) 1 mg Q15M PRN IM DECREASED GLUCOSE; Start 07/17/18 at 19:30 Glucose (Glutose) 15 gm Q15M PRN BUCCAL DECREASED GLUCOSE; Start 07/17/18 at 19:30 Tramadol HCl (Ultram) 50 mg Q6H PRN PO MODERATE PAIN LEVEL 4-6 Last administered on 07/18/18at 20:07; Admin Dose 50 MG; Start 07/18/18 at 20:00 Zolpidem Tartrate (Ambien) 5 mg HS MAY REPEAT X 1 PRN PO INSOMNIA Last administered on 07/18/18at 21:15; Admin Dose 5 MG; Start 07/18/18 at 20:00 Mupirocin (Bactroban) 1 applic BID TOP Last administered on 07/20/18at 09:49; Admin Dose 1 APPLIC; Start 07/19/18 at 11:30 Furosemide (Lasix) 40 mg DAILY IV Last administered on 07/20/18at 09:49; Admin Dose 40 MG; Start 07/20/18 at 09:00 ELEANOR ROLDAN Jul 20, 2018 11:40
--- NOTE | 2018-07-20 16:18 | PN ---
Date/Time of Note Date/Time of Note DATE: 07/20/18 TIME: 16:17 Assessment/Plan VTE [place] [facility] [place]: 6 [place] [facility] [place] Yes Pharmacological prophylaxis: NA/contraindicated Pharm contraindication: low risk/ambulating Lines/Catheters IV Catheter Type (from [facility]): [place]ine [facility] Urinary Cath still in place: No Assessment/Plan Hospital Course 83-year-old male 1. Congestive heart failure exacerbation, systolic, acute on chronic. 2. Hx of cardiomyopathy with decreased left ventricular ejection fraction last ejection fraction approximately 30% by echo in 04/2018. 3. History of percutaneous transluminal coronary angioplasty and stent placement, most recently to RCA, PDA and left main in 06/2017. 4. Hypertension. 5. Dyslipidemia. 6. Diabetes mellitus. 7. Chronic kidney disease 8. Hypothyroidism. 9. Hypernatremia. 10. Increased liver function tests. 11. Increased BNP consistent with patient's congestive heart failure. 12 cKd stage III which has been stable now worsening creatinine likely secondary to overdiuresis> improved 13 lower quadrant pain rule out colitis/diverticulitis, CT A+neg Assessment/Plan -change to lasix po bid -CT of the abdomen and pelvis withOUT contrast neg -ABD ultrasound just showed some hepatomegaly -pt already received several courses of antibiotics - ambulate - cw aspirin and statin Coreg/ imdur/brilinta -fu With cards recs - + mrsa > bactroban dc planning [facility] Result Diagram: 07/20/1862607/20/18 0627 Results 24hrs Laboratory Tests Test 07/19/18 17:42 07/19/18 17:44 07/19/18 20:15 07/20/18 06:27 Bedside Glucose 266 H 167 142 White Blood Count 5.2 Red Blood Count 4.15 L Hemoglobin 11.1 L Hematocrit 34.7 L Mean Corpuscular 83.6 Volume Mean Corpuscular 26.7 L Hemoglobin Mean Corpuscular 32.0 Hemoglobin Concent Red Cell 17.8 H Distribution Width Platelet Count 132 L Mean Platelet Volume 10.3 Immature 1.300 H Granulocytes % Neutrophils % 56.9 Lymphocytes % 33.4 Monocytes % 6.9 Eosinophils % 1.3 Basophils % 0.2 Nucleated Red Blood 0.0 Cells % Immature 0.070 H Granulocytes # Neutrophils # 3.0 Lymphocytes # 1.7 Monocytes # 0.4 Eosinophils # 0.1 Basophils # 0.0 Nucleated Red Blood 0.0 Cells # Sodium Level 145 H Potassium Level 4.0 Chloride Level 108 Carbon Dioxide Level 26 Anion Gap 11 Blood Urea Nitrogen 36 H Creatinine 1.80 H Est Glomerular Filtrat Rate mL/min Glucose Level 123 Calcium Level 9.2 Phosphorus Level 4.0 Magnesium Level 2.3 Test 07/20/18 08:02 07/20/18 11:38 Bedside Glucose 137 170 Subjective 24 Hr Interval Summary Free Text/Dictation slowly improving Abdominal pain improved Cr down Exam/Review of Systems Exam Vitals Vital Signs Date Temp Pulse Resp B/P (MAP) Pulse Ox O2 O2 Flow FiO2 Time Delivery Rate 07/20/18 69 16:06 07/20/18 98.0 20 128/61 96 Room Air 15:08 (83) 07/20/18 21 07:45 07/19/18 1.0 08:55 Intake and Output 07/19/18 07/19/18 07/20/18 1515:00 23:00 07:00 IntakeIntake Total 850 ml 350 ml OutputOutput Total 650 ml 400 ml BalanceBalance 200 ml -50 ml Exam nstitutional: alert, oriented Neck: supple Respiratory: CLEAR To auscultate Cardiovascular: regular rate and rhythm Gastrointestinal: soft, tenderness present in the left lower quadrant Results Results 24hrs Laboratory Tests Test 07/19/18 17:42 07/19/18 17:44 07/19/18 20:15 07/20/18 06:27 Bedside Glucose 266 H 167 142 White Blood Count 5.2 Red Blood Count 4.15 L Hemoglobin 11.1 L Hematocrit 34.7 L Mean Corpuscular 83.6 Volume Mean Corpuscular 26.7 L Hemoglobin Mean Corpuscular 32.0 Hemoglobin Concent Red Cell 17.8 H Distribution Width Platelet Count 132 L Mean Platelet Volume 10.3 Immature 1.300 H Granulocytes % Neutrophils % 56.9 Lymphocytes % 33.4 Monocytes % 6.9 Eosinophils % 1.3 Basophils % 0.2 Nucleated Red Blood 0.0 Cells % Immature 0.070 H Granulocytes # Neutrophils # 3.0 Lymphocytes # 1.7 Monocytes # 0.4 Eosinophils # 0.1 Basophils # 0.0 Nucleated Red Blood 0.0 Cells # Sodium Level 145 H Potassium Level 4.0 Chloride Level 108 Carbon Dioxide Level 26 Anion Gap 11 Blood Urea Nitrogen 36 H Creatinine 1.80 H Est Glomerular Filtrat Rate mL/min Glucose Level 123 Calcium Level 9.2 Phosphorus Level 4.0 Magnesium Level 2.3 Test 07/20/18 08:02 07/20/18 11:38 Bedside Glucose 137 170 Medications Medication Current Medications Aspirin (Halfprin) 81 mg DAILY PO Last administered on 07/20/18 09:48; Admin Dose 81 MG; Start 07/18/18 at 09:00 Atorvastatin Calcium (Lipitor) 20 mg QHS PO Last administered on 07/19/18 20:16; Admin Dose 20 MG; Start 07/17/18 at 21:00 Carvedilol (Coreg) 25 mg BID PO Last administered on 07/20/18 09:48; Admin Dose 25 MG; Start 07/17/18 at 21:00 Hydralazine HCl (Apresoline) 50 mg Q8 PO Last administered on 07/20/18 14:43; Admin Dose 50 MG; Start 07/17/18 at 14:30 Isosorbide Mononitrate (Imdur) 60 mg DAILY PO Last administered on 07/20/18 09:48; Admin Dose 60 MG; Start 07/18/18 at 09:00 Ticagrelor (Brilinta) 90 mg Q12 PO Last administered on 07/20/18 09:55; Admin Dose 90 MG; Start 07/17/18 at 21:00 Albuterol/ Ipratropium (Duoneb) 3 ml Q6HWA RESP THERAPY HHN Last administered on 07/20/18 07:44; Admin Dose 3 ML; Start 07/17/18 at 20:00 Allopurinol (Zyloprim) 100 mg DAILY PO Last administered on 07/20/18 09:47; Admin Dose 100 MG; Start 07/18/18 at 09:00 Latanoprost (Xalatan) 1 drop QHS BOTH EYES Last administered on 07/19/18 20:15; Admin Dose 1 DROP; Start 07/17/18 at 21:00 Levothyroxine Sodium (Synthroid) 75 mcg BEFORE BREAKFAST PO Last administered on 07/20/18 06:20; Admin Dose 75 MCG; Start 07/18/18 at 07:00 IV Flush (NS 3 ml) 3 ml PER PROTOCOL IV ; Start 07/17/18 at 17:30 Ondansetron HCl (Zofran Inj) 4 mg Q6H PRN IV NAUSEA/VOMITING; Start 07/17/18 at 17:30 Acetaminophen (Tylenol Tab) 650 mg Q6H PRN PO .PAIN 1-3 OR TEMP Last administered on 07/18/18at 14:38; Admin Dose 650 MG; Start 07/17/18 at 17:30 Docusate Sodium (Colace) 100 mg Q12H PRN PO .CONSTIPATION; Start 07/17/18 at 17:30 Bisacodyl (Dulcolax) 5 mg DAILY PRN PO .CONSTIPATION; Start 07/17/18 at 17:30 Pantoprazole (Protonix Tab) 40 mg DAILY@06 PO Last administered on 07/20/18at 06:19; Admin Dose 40 MG; Start 07/18/18 at 06:00 Diagnostic Test (Pha) (Accu-Chek) 1 ea 02 XX ; Start 07/18/18 at 02:00 Insulin Aspart (Novolog Insulin Pen) NOVOLOG *MILD* ALGORITHM WITH MEALS BEDTIME SC Last administered on 07/20/18at 11:53; Admin Dose 1 UNIT; Start 07/17/18 at 21:00 Miscellaneous Information 1 ea NOTE XX ; Start 07/17/18 at 19:30 Glucose (Glutose) 15 gm Q15M PRN PO DECREASED GLUCOSE; Start 07/17/18 at 19:30 Glucose (Glutose) 22.5 gm Q15M PRN PO DECREASED GLUCOSE; Start 07/17/18 at 19:30 Dextrose (D50w Syringe) 25 ml Q15M PRN IV DECREASED GLUCOSE; Start 07/17/18 at 19:30 Dextrose (D50w Syringe) 50 ml Q15M PRN IV DECREASED GLUCOSE; Start 07/17/18 at 19:30 Glucagon (Glucagen) 1 mg Q15M PRN IM DECREASED GLUCOSE; Start 07/17/18 at 19:30 Glucose (Glutose) 15 gm Q15M PRN BUCCAL DECREASED GLUCOSE; Start 07/17/18 at 19:30 Tramadol HCl (Ultram) 50 mg Q6H PRN PO MODERATE PAIN LEVEL 4-6 Last administered on 07/18/18at 20:07; Admin Dose 50 MG; Start 07/18/18 at 20:00 Zolpidem Tartrate (Ambien) 5 mg HS MAY REPEAT X 1 PRN PO INSOMNIA Last administered on 07/18/18at 21:15; Admin Dose 5 MG; Start 07/18/18 at 20:00 Mupirocin (Bactroban) 1 applic BID TOP Last administered on 07/20/18at 09:49; Admin Dose 1 APPLIC; Start 07/19/18 at 11:30 Furosemide (Lasix) 40 mg DAILY IV Last administered on 07/20/18at 09:49; Admin D ose 40 MG; Start 07/20/18 at 09:00 MERT BENITEZ MD Jul 20, 2018 16:18
[2018-07-20] MEDS: FUROSEMIDE 40 MG TAB PO SCH (17:22)
--- NOTE | 2018-07-20 19:04 | NUR ---
EOSS: PT SITTING UP IN BED, DENIES PAIN OR DISCOMFORT AT THIS TIME. NO S/S RESPIRATORY DISTRESS PT ON ROOM AIR. PT SEEN BY DR. BENITEZ- SEE PHYSICIAN ORDERS. PT CLEAN AND DRY. ISOLATION PRECAUTIONS MAINTAINED. FALL AND SAFETY PRECAUTIONS IMPLEMENTED. CALL LIGHT WITHIN REACH ABLE TO MAKE NEEDS KNOWN BED IN LOWEST POSITION BRAKES LOCKED ROOM FREE OF CLUTTER, PERSONAL BELONGINGS PLACED CLOSE TO PATIENT. WILL ENDORSE PT TO TON CONTAINER SHIPPER RN ACCORDINGLY.
[2018-07-20] MEDS: ATORVASTATIN 20 MG TAB PO SCH (20:50)
[2018-07-20] MEDS: LATANOPROST 0.005% 2.5 ML OPH BOTH EYES SCH (20:51)
[2018-07-21] VITALS (8 sets, daily range): BP systolic 112–134; BP diastolic 55–60; PULSE 69–81; RESP 18–20
[2018-07-21] MEDS: ACCU-CHEK XX SCH (02:00)
[2018-07-21] MEDS: PANTOPRAZOLE (EC) 40 MG TAB PO SCH (06:03)
[2018-07-21] MEDS: FUROSEMIDE 40 MG TAB PO SCH (06:04)
[2018-07-21] MEDS: LEVOTHYROXINE 75 MCG TAB PO SCH (06:04)
--- NOTE | 2018-07-21 06:45 | NUR ---
end of shift: patient is alert and oriented, SR/V-paced on monitor, ambulates w/ assist; no acute events overnight, for possible discharge today; needs attended, will endorse to dayshift nurse
[2018-07-21] MEDS: ALBUTEROL/IPRATROPIUM (NEB) 3 ML AMP HHN SCH ×2 (07:40→14:07)
[2018-07-21] MEDS: ALLOPURINOL 100 MG TAB PO SCH (08:18)
[2018-07-21] MEDS: ISOSORBIDE MONONITRATE(SR)60 MG TAB PO SCH (08:18)
[2018-07-21] MEDS: ASPIRIN (EC) 81 MG TAB PO SCH (08:18)
[2018-07-21] MEDS: MUPIROCIN 2% 22 GM OINT TOP SCH (08:20)
[2018-07-21] MEDS: TICAGRELOR 90 MG TABLET PO SCH (08:27)
[2018-07-21] MEDS: INSULIN ASPART [NOVOLOG] 3 ML PEN SC SCH ×2 (08:27→12:06)
--- NOTE | 2018-07-21 12:36 | PDOCDIS ---
Discharge Instructions CONDITION [id number] Patient Condition: [id number] Stable ACTIVITY: [id number] Activity Restrictions: [id number] Slowly Increase Activity Rest between Activity Avoid heavy lifting FOLLOW UP/APPOINTMENTS Follow-up Plan Dr Flores cardiology 2 weeks SCHOOL/WORK RELEASE May return to School/Work with: No Restrictions MYRA CABRALES Jul 21, 2018 12:36
--- NOTE | 2018-07-21 14:35 | NUR ---
DISCHARGE NOTE: PT WITH ORDERS TO D/C BY MYRA GETTER WELDER TO HOME. PT DENIES PAIN OR DISCOMFORT AT THIS TIME. NO S/S OF RESPIRATORY DISTRESS. PT CLEAN AND DRY.REMOVED IV HEPLOCK. DISCHARGE INSTRUCTIONS GIVEN TO PATIENT. PT VERBALIZED UNDERSTANDING. WITH ALL PERSONAL BELONGINGS. FAMILY AWARE OF PTS D/C. PT REQUESTED FOR TAXI VOUCHER. CLIFF, PARK AIDE CALLED [employer], CALLED VOLUNTEER TO UNIT TO ESCORT PATIENT DOWNSTAIRS WHERE PT WILL BE GETTING PICKED UP.
== END 2018-07-21 14:49 | disposition home or self-care (01) | DRG 291 ==
LOC: E/R 08:34 → TEL 12:26
PROVIDERS: ADMIT Internal Medicine; ATTEND Internal Medicine
DX: I13.0 Hypertensive heart and chronic kidney disease with heart failure and stage 1 through stage 4 chronic kidney disease, or unspecified chronic kidney disease (principal); I50.23 Acute on chronic systolic (congestive) heart failure; E87.0 Hyperosmolality and hypernatremia; E11.22 Type 2 diabetes mellitus with diabetic chronic kidney disease; I42.9 Cardiomyopathy, unspecified; N18.3 Chronic kidney disease, stage 3 (moderate); Z95.2 Presence of prosthetic heart valve; E03.9 Hypothyroidism, unspecified; E78.5 Hyperlipidemia, unspecified; I25.10 Atherosclerotic heart disease of native coronary artery without angina pectoris; Z79.4 Long term (current) use of insulin; Z79.82 Long term (current) use of aspirin; Z95.5 Presence of coronary angioplasty implant and graft; Z95.810 Presence of automatic (implantable) cardiac defibrillator; Z95.0 Presence of cardiac pacemaker
CPT/HCPCS: 36415; 71045; 74176; 76700; 80048; 80053; 80061; 82550; 82553; 82962; 83605; 83735; 83880; 84100; 84484; 85025; 87081; 93005; 94640; 94664; 96374; J1815; J1940

== ENCOUNTER 2018-08-12 18:29 | Inpatient (IN) | payer MEDICARE, MEDICAID ==
[~2018-08-12] VITALS: Ht 162.6 cm; Wt 68.2 kg
[~2018-08-12 18:29] MED LIST changes: -AZIT250T PO
[2018-08-12] MEDS ORDERED: FUROSEMIDE 40 MG INJ IV STA (19:16)
--- NOTE | 2018-08-12 20:06 | ERD ---
ER Documentation Chief Complaint Chief Complaint SOB, RECENTLY ADMITTED FOR PNA HPI This is a 83-year-old male who is here for shortness of breath. He has a history of CHF and states is getting short of breath when he walks and when he lays flat. He has had a recent diagnosis of pneumonia. He says he is coughing but is better. No fever. No chest pain. No swelling in the legs. His symptoms began yesterday. He said today are getting a little bit worse so came in for evaluation ROS All systems reviewed and are negative except as per history of present illness. Medications Home Meds Active Scripts Albuterol Sulfate* (Proair HFA*) 8.5 Gm Hfa.aer.ad, 2 PUFF INH Q4H PRN for WHEEZING AND SOB, #1 INHALER Prov:MERT BENITEZ MD 05/19/18 Hydralazine Hcl* (Apresoline*) 50 Mg Tab, 50 MG PO Q8 for 30 Days, TAB Prov:MYRA CABRALES 05/19/18 Atorvastatin Calcium (Atorvastatin Calcium) 20 Mg Tablet, 20 MG PO QHS for 30 Days, TAB Prov:MYRA CABRALES 05/19/18 Reported Medications Latanoprost (Xalatan) 2.5 Ml Drops, 1 DROP BOTH EYES QHS, #1 BOTTLE 05/09/18 Nateglinide* (Nateglinide*) 60 Mg Tablet, 180 MG PO AC MEALS, TAB 05/09/18 Furosemide* (Furosemide*) 40 Mg Tablet, 40 MG PO BID, TAB 12/15/17 Levothyroxine Sodium* (Levothyroxine Sodium*) 75 Mcg Tablet, 75 MCG PO BEFORE BREAKFAST, #30 TAB 10/27/17 Sitagliptin* (Januvia*) 50 Mg Tablet, 50 MG PO DAILY, #30 TAB 07/30/17 Isosorbide Mononitrate* (Isosorbide Mononitrate*) 60 Mg Tab.er.24h, 60 MG PO DAILY, TAB 07/30/17 Carvedilol* (Carvedilol*) 25 Mg Tablet, 25 MG PO BID, #60 TAB 07/30/17 Ticagrelor* (Brilinta*) 90 Mg Tablet, 90 MG PO Q12, TAB 07/30/17 Aspirin (Low Dose Aspirin) 81 Mg Tablet.dr, 81 MG PO DAILY, #30 TAB 07/30/17 Allopurinol* (Allopurinol*) 100 Mg Tablet, 100 MG PO DAILY, TAB 07/30/17 Allergies Allergies: Coded Allergies: No Known Allergies (Verified Allergy, Unknown, 07/17/18) PMhx/Soc History of Surgery: Yes (STENTS, PACEKMAKER/AICD, HEART VALVE REPLACEMENT) Anesthesia Reaction: No Hx Neurological Disorder: No Hx Respiratory Disorders: Yes (CHF) Hx Cardiac Disorders: Yes (HTN, CHF, CARDIOMYOPATHY, PTCA, STENTS, DLD, [place]) Hx Psychiatric Problems: No Hx Miscellaneous Medical Probl: No Hx Alcohol Use: No Hx Substance Use: No Hx Tobacco Use: No Smoking Status: Never smoker FmHx Family History: No coronary disease Physical Exam Vitals Vital Signs Date Temp Pulse Resp B/P (MAP) Pulse Ox O2 O2 Flow FiO2 Time Delivery Rate 08/12/18 Nasal 2.0 19:10 Cannula 08/12/18 90 29 162/84 99 Nasal 2.0 19:10 (110) Cannula 08/12/18 2 19:10 08/12/18 98.0 99 18 162/81 98 18:46 (108) Physical Exam Const: Well-developed, well-nourished Head: Atraumatic, normocephalic Eyes: Normal Conjunctiva, PERRLA, EOMI, normal sclera, no nystagmus ENT: Normal External Ears, Nose and Mouth, moist mucus membranes. Neck: Full range of motion. No meningismus, no lymphadenopathy. Resp: No increased work of breathing, bilateral lower lobe rhonchi Cardio: Regular rate and rhythm, no murmurs, S1 S2 present Abd: Soft, non tender x 4, non distended. Normal bowel sounds, no guarding or rebound, no pulsitile abdominal masses or bruits Skin: No petechiae or rashes, no ecchymosis , no maculopapular rash Back: No midline or flank tenderness Ext: No cyanosis, or edema, FROM x 4, normal inspection, neurovascularly intact x 4 Neur: Awake and alert, STR 5/5 x 4, sensation intact x 4, no focal findings, cerebellum intact Psych: Normal Mood and Affect Result Diagram: 08/12/18194208/12/181942 Results 24 hrs Laboratory Tests Test 08/12/18 19:43 White Blood Count 7.8 10^3/ul Red Blood Count 3.86 10^6/ul Hemoglobin 10.5 g/dl Hematocrit 32.9 % Mean Corpuscular Volume 85.2 fl Mean Corpuscular Hemoglobin 27.2 pg Mean Corpuscular Hemoglobin Concent 31.9 g/dl Red Cell Distribution Width 17.2 % Platelet Count 127 10^3/UL Mean Platelet Volume 10.5 fl Immature Granulocytes % 4.100 % Neutrophils % 68.7 % Lymphocytes % 20.9 % Monocytes % 4.9 % Eosinophils % 1.3 % Basophils % 0.1 % Nucleated Red Blood Cells % 0.0 /100WBC Immature Granulocytes # 0.320 10^3/ul Neutrophils # 5.4 10^3/ul Lymphocytes # 1.6 10^3/ul Monocytes # 0.4 10^3/ul Eosinophils # 0.1 10^3/ul Basophils # 0.0 10^3/ul Nucleated Red Blood Cells # 0.0 10^3/ul Sodium Level 142 mmol/L Potassium Level 3.8 mmol/L Chloride Level 107 mmol/L Carbon Dioxide Level 25 mmol/L Anion Gap 10 Blood Urea Nitrogen 32 mg/dl Creatinine 1.90 mg/dl Est Glomerular Filtrat Rate mL/min mL/min Glucose Level 191 mg/dl Calcium Level 9.4 mg/dl Total Bilirubin 0.4 mg/dl Direct Bilirubin 0.00 mg/dl Indirect Bilirubin 0.4 mg/dl Aspartate Amino Transf (AST/SGOT) 45 IU/L Alanine Aminotransferase (ALT/SGPT) 31 IU/L Alkaline Phosphatase 109 IU/L Troponin I 0.013 ng/ml B-Type Natriuretic Peptide 8870 PG/ML Total Protein 8.2 g/dl Albumin 4.4 g/dl Globulin 3.80 g/dl Albumin/Globulin Ratio 1.15 Current Medications Medications Dose Sig/Leanna Start Time Status Last (Trade) Ordered Route PRN Stop Time Admin Dose Reason Admin Furosemide 40 mg ONCE STAT 08/12/18 DC 08/12/18 (Lasix) IV 19:16 19:32 08/12/18 19:17 Procedures/MDM Ordering MD: JAIDEN YIN DO Location: E/R Room/Bed: PROCEDURE: One view chest radiograph. CLINICAL INDICATION: Chest pain. TECHNIQUE: An AP view of the chest was obtained. COMPARISON: 06/28/2017 FINDINGS: Mediastinum: There is calcification of the wall of the thoracic aorta. Single lead right ventricular pacemaker / AICD. Heart size: Enlarged, stable Pulmonary vasculature: Mildly prominent. Lungs: Slight interstitial prominence in the lung bases . Costophrenic sulci: Blunting on the left, new. Bony structures: Grossly unremarkable for age. IMPRESSION: 1. Atherosclerosis of the thoracic aorta. 2. Findings suggesting borderline congestive failure. 3. Single lead right ventricular pacemaker / AICD, stable. RPTAT:AAJJ Physician Antolin Date Time Electronically viewed and signed by Physician Antolin on 08/12/2018 20:55 GW/ CC: JAIDEN YIN DO [id number] EKG: Rate/Rhythm: Normal sinus rhythm with left bundle branch block QRS, ST, QT: NORMAL WI, wide QRS, QT] Impression: [Abnormal EKG The patient is having symptomatic congestive heart failure, acute on chronic, the patient will be admitted I have paged who admitted the patient last month for the same situation. The patient did receive 40 mg of intravenous Lasix to help diurese Departure Diagnosis: Primary Impression: CHF exacerbation Heart failure type: unspecified Qualified Codes: I50.9 - Heart failure, unspecified Condition: Stable JAIDEN YIN DO Aug 12, 2018 20:06
[2018-08-12] MEDS ORDERED: ONDANSETRON 4 MG INJ IV PRN (22:00)
[2018-08-12] MEDS ORDERED: ACETAMINOPHEN 325 MG TAB PO PRN (22:00)
[2018-08-12 23:15] VITALS: BP 158/72; PULSE 82; RESP 18; Ht 162.6 cm; Wt 68.2 kg
[2018-08-12 23:25] VITALS: PULSE 91
[2018-08-13] VITALS (9 sets, daily range): BP systolic 134–157; BP diastolic 6–78; PULSE 70–100; RESP 18
[2018-08-13] MEDS ORDERED: ACETAMINOPHEN 325 MG TAB PO PRN
[2018-08-13] MEDS ORDERED: ALBUTEROL HFA 8 GM INHALER INH PRN
[2018-08-13] MEDS ORDERED: ONDANSETRON 4 MG INJ IV PRN
[2018-08-13] MEDS ORDERED: GLUCAGON 1 MG INJ IM PRN (00:30)
[2018-08-13] MEDS ORDERED: GLUCOSE GEL 15 GRAM TUBE BUCCAL PRN (00:30)
[2018-08-13] MEDS ORDERED: DEXTROSE 50% 50 ML SYRINGE IV PRN ×2 (00:30)
[2018-08-13] MEDS ORDERED: GLUCOSE GEL 15 GRAM TUBE PO PRN ×2 (00:30)
[2018-08-13] MEDS: ACCU-CHEK XX SCH (01:42)
[2018-08-13] MEDS: FUROSEMIDE 40 MG INJ IV SCH ×2 (05:54→17:42)
[2018-08-13] MEDS: LEVOTHYROXINE 75 MCG TAB PO SCH (06:23)
[2018-08-13] MEDS: INSULIN ASPART [NOVOLOG] 3 ML PEN SC SCH ×4 (07:57→21:00)
[2018-08-13] MEDS: ISOSORBIDE MONONITRATE(SR)60 MG TAB PO SCH (08:35)
[2018-08-13] MEDS: ASPIRIN (EC) 81 MG TAB PO SCH (08:36)
[2018-08-13] MEDS: ALLOPURINOL 100 MG TAB PO SCH (08:36)
[2018-08-13] MEDS: TICAGRELOR 90 MG TABLET PO SCH ×2 (08:40→21:27)
[2018-08-13] MEDS ORDERED: FUROSEMIDE 40 MG TAB PO SCH (09:00)
[2018-08-13] MEDS ORDERED: FUROSEMIDE 40 MG INJ IV ONE (12:00)
--- NOTE | 2018-08-13 12:20 | CONS ---
DATE OF ADMISSION: 08/12/2018 DATE OF CONSULTATION: 08/13/2018 TYPE OF CONSULTATION: Cardiology. REASON FOR CONSULTATION: Congestive heart failure exacerbation. REQUESTING PHYSICIAN: Valdez Ring MD HISTORY OF PRESENT ILLNESS: Mr. Adams is an 83-year-old male well known to myself as a primary off ice patient with a history of cardiomyopathy, decreased left ventricular ejection fraction last EF ap proximately 30% by echo in 04/2018, coronary artery disease, status post prior PTCA and stent placeme nt, most recently to right coronary artery, PDA and prior at left main in 06/2017, transcatheter aort ic valve replacement at [facility], chronic kidney disease not on hemodialysis, diabetes mellitus, hypothyr oidism, recurrent bouts of systolic congestive heart failure who presents with complaints of shortnes s of breath and orthopnea ongoing for 1 to 2 days prior to admission. Upon arrival, temperature of 9 8, blood pressure 162/81, pulse 99, respiratory rate 18, satting 99%. The patient's labs were notabl e for a white blood cell count of 7.8, hemoglobin 10.5, platelet count of 127, sodium 142, potassium 3.8, BUN of 32, creatinine 1.9. Troponin [place]. [place] 8807. The patient underwent a chest x-ra y revealing atherosclerosis of the thoracic aorta, findings suggest prolonged congestive heart failur e, single right ventricular pacemaker. The patient's electrocardiogram revealed sinus rhythm and rat e 91 with a left bundle block, secondary repolarization abnormalities. The patient was subsequently admitted to the floor and since admit to floor, has been started on Lasix 40 IV b.i.d. with some impr ovement in symptoms at this time. PAST MEDICAL HISTORY: As above in HPI. MEDICATIONS CURRENTLY IN HOSPITAL: 1. Lipitor 20 mg at bedtime. 2. Xalatan eyedrops. 3. Allopurinol. 4. Aspirin 81 daily. 5. Carvedilol 25 mg p.o. b.i.d. 6. Imdur 60 mg daily. 7. Brilinta 90 mg q.12. 8. Insulin sliding scale. 9. Hydralazine 50 mg q.8. 10. Lasix 40 mg IV b.i.d. ALLERGIES: NO KNOWN DRUG ALLERGIES. SOCIAL HISTORY: No current tobacco, EtOH or illicit drug use. FAMILY HISTORY: No history of sudden cardiac or early CAD. REVIEW OF SYSTEMS: As above in HPI. CONSTITUTIONAL: No fevers, chills. PULMONARY: Shortness of breath. CARDIOVASCULAR: No current chest pain. GASTROINTESTINAL: No vomiting. GENITOURINARY: No hematuria. MUSCULOSKELETAL: Degenerative joint disease. PSYCHIATRIC: The patient has depression. NEUROLOGIC: No documented history of CVA. PHYSICAL EXAMINATION: VITAL SIGNS: Temperature 98.2, blood pressure most recently of 157/78, pulse 100, respiratory rate 1 8, satting 98% on 2 liters. GENERAL: The patient is alert, awake, in no acute distress. NECK: JVP is approximately 9 to 10 cm of water. CHEST: Fair air movement throughout, mild decreased breath sounds at bases bilaterally. HEART: Regular rate and rhythm. Normal S1, S2. I/ systolic murmur, laterally displaced PMI. ABDOMEN: Positive bowel sounds, soft. EXTREMITIES: No significant pitting edema. A 1+ pulses bilateral posterior tibial. LABORATORY DATA: Most recently from today, sodium 145, potassium 3.7, creatinine 0.6, BUN 32. White blood cell count 6.9, hemoglobin 10.4, platelet count of 129. IMAGING STUDIES: As above in HPI. No further imaging studies for my review at this time. ELECTROCARDIOGRAM: As above in HPI. No further electrocardiograms for my review at this time. IMPRESSION: 1. Congestive heart failure exacerbation, systolic, acute on chronic. 2. Cardiomyopathy with decreased left ventricular ejection fraction last EF approximately 30% by ech o in 04/2018. 3. History of PTCA and stent placement, most recently to right coronary artery, PDA and left main in 06/2017. 4. History of transcatheter aortic valve replacement in [facility]. 5. Hypertension. 6. Dyslipidemia. 7. Shortness of breath secondary to #1. 8. 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. RECOMMENDATIONS: 1. At this time, we would maintain the patient on telemetry monitoring to follow rhythm and rates cl osely. 2. The patient is status post troponins negative x3, rule out for myocardial infarction. 3. We will continue the patient's Lasix diuresis, given extra dose now to improve diuresis and sympt omatology. 4. Continue the patient's current carvedilol, hydralazine and Imdur with up titration as necessary t o improve overall systolic blood pressure control and we will follow up the patient's blood pressure after receiving medications this morning. 5. Continue the patient's dual antiplatelet therapy for stent patency with aspirin and Brilinta. 6. Additionally reassess the patient's current cholesterol level with fasting lipid panel and adjust the patient's statin therapy as necessary. Thank you for allowing me to take part in the care of this patient. I will continue to follow him al anupama very closely with you with further recommendations will be made as the patient progresses through his inpatient hospital clinical course. Dictated By: ELEANOR ABREU/ELIZABETH Conf#: [id number] DID#: [id number] CC: VALDEZ RING MD;*EndCC*
--- NOTE | 2018-08-13 16:33 | QN ---
Documentation Comment [id number] KIARA RING MD Aug 13, 2018 16:33
[2018-08-13] MEDS: LATANOPROST 0.005% 2.5 ML OPH BOTH EYES SCH (21:24)
[2018-08-13] MEDS: ATORVASTATIN 20 MG TAB PO SCH (21:25)
[2018-08-14] VITALS (10 sets, daily range): BP systolic 135–153; BP diastolic 62–76; PULSE 65–81; RESP 16–18
[2018-08-14] MEDS: ACCU-CHEK XX SCH (02:00)
[2018-08-14] MEDS: FUROSEMIDE 40 MG INJ IV SCH ×2 (05:21→17:40)
[2018-08-14] MEDS: LEVOTHYROXINE 75 MCG TAB PO SCH (06:51)
[2018-08-14] MEDS: INSULIN ASPART [NOVOLOG] 3 ML PEN SC SCH ×4 (07:51→21:00)
[2018-08-14] MEDS: ASPIRIN (EC) 81 MG TAB PO SCH (08:14)
[2018-08-14] MEDS: ISOSORBIDE MONONITRATE(SR)60 MG TAB PO SCH (08:14)
[2018-08-14] MEDS: ALLOPURINOL 100 MG TAB PO SCH (08:14)
[2018-08-14] MEDS: TICAGRELOR 90 MG TABLET PO SCH ×2 (08:17→21:49)
[2018-08-14] MEDS ORDERED: POTASSIUM CHLORIDE (SR) 20 MEQ TAB PO STA (09:34)
--- NOTE | 2018-08-14 09:43 | PN ---
Date/Time of Note Date/Time of Note DATE: 08/14/18 TIME: 09:39 Assessment/Plan VTE Prophylaxis Risk score (from Ns)>0 risk: 3 SCD applied (from Ns): Yes Pharmacological prophylaxis: NA/contraindicated Pharm contraindication: low risk/ambulating Lines/Catheters IV Catheter Type (from Rust): Saline Lock Urinary Cath still in place: No Assessment/Plan Hospital Course 83 y/o with 1 Sob likely due to Congestive heart failure exacerbation, systolic, acute on chronic. 2. Cardiomyopathy with decreased left ventricular ejection fraction last EF approximately 30% by echo in 04/2018. 3. History of PTCA and stent placement, most recently to right coronary artery, PDA and left main in 06/2017. 4. History of transcatheter aortic valve replacement 5. Hypertension. 6. Dyslipidemia. 7 Chronic kidney disease III Plan -Replete potassium -iv Lasix 40 twice daily, metolazone -get Chest x-ray ,ABG -Continue with aspirin statin Coreg, Imdur hydralazine Brilinta - follow cardiology recs Result Diagram: 08/13/18 0457 08/14/18 0502 Results 24hrs Laboratory Tests Test 08/13/18 12:42 08/13/18 17:17 08/13/18 21:30 08/14/18 05:02 Bedside Glucose 144 179 128 Sodium Level 144 Potassium Level 3.4 L Chloride Level 107 Carbon Dioxide Level 26 Anion Gap 11 Blood Urea Nitrogen 31 H Creatinine 1.66 H Est Glomerular Filtrat Rate mL/min Glucose Level 139 Calcium Level 9.3 Test 08/14/18 05:03 08/14/18 07:50 Troponin I 0.025 Triglycerides Level 72 Cholesterol Level 142 LDL Cholesterol, 84 Calculated HDL Cholesterol 44 Cholesterol/HDL 3.2 Ratio Bedside Glucose 138 Subjective 24 Hr Interval Summary Free Text/Dictation Feels slightly better. -1.4 L Exam/Review of Systems Exam Vitals Vital Signs Date Temp Pulse Resp B/P (MAP) Pulse Ox O2 O2 Flow FiO2 Time Delivery Rate 08/14/18 71 09:00 08/14/18 98.0 18 153/71 99 07:21 (98) 08/13/18 Nasal 2.0 19:15 Cannula Intake and Output 08/13/18 08/13/18 08/14/18 1515:00 23:00 07:00 IntakeIntake Total 800 ml 550 ml OutputOutput Total 1400 ml 1250 ml BalanceBalance -600 ml -700 ml Exam GENERAL: The patient is alert, awake, in no acute distress. NECK: JVP is elevated CHEST: Fair air movement throughout, mild decreased breath sounds at the left base HEART: Regular rate and rhythm. Normal S1, S2. sherron ABDOMEN: Positive bowel sounds, soft. EXTREMITIES: No significant pitting edema. A 1+ pulses bilateral posterior tibial. Results Results 24hrs Laboratory Tests Test 08/13/18 12:42 08/13/18 17:17 08/13/18 21:30 08/14/18 05:02 Bedside Glucose 144 179 128 Sodium Level 144 Potassium Level 3.4 L Chloride Level 107 Carbon Dioxide Level 26 Anion Gap 11 Blood Urea Nitrogen 31 H Creatinine 1.66 H Est Glomerular Filtrat Rate mL/min Glucose Level 139 Calcium Level 9.3 Test 08/14/18 05:03 08/14/18 07:50 Troponin I 0.025 Triglycerides Level 72 Cholesterol Level 142 LDL Cholesterol, 84 Calculated HDL Cholesterol 44 Cholesterol/HDL 3.2 Ratio Bedside Glucose 138 Medications Medication Current Medications Albuterol (Ventolin Hfa) 2 puff Q4H RESP THERAPY PRN INH WHEEZING AND SOB; Start 08/13/18 at 00:00 Allopurinol (Zyloprim) 100 mg DAILY PO Last administered on 08/14/18at 08:14; Admin Dose 100 MG; Start 08/13/18 at 09:00 Aspirin (Halfprin) 81 mg DAILY PO Last administered on 08/14/18 08:14; Admin Dose 81 MG; Start 08/13/18 at 09:00 Atorvastatin Calcium (Lipitor) 20 mg QHS PO Last administered on 08/13/18at 21:25; Admin Dose 20 MG; Start 08/13/18 at 21:00 Carvedilol (Coreg) 25 mg BID PO Last administered on 08/14/18 08:14; Admin Dose 25 MG; Start 08/13/18 at 09:00 Hydralazine HCl (Apresoline) 50 mg Q8 PO Last administered on 08/14/18at 05:21; Admin Dose 50 MG; Start 08/13/18 at 06:00 Isosorbide Mononitrate (Imdur) 60 mg DAILY PO Last administered on 08/14/18at 08:14; Admin Dose 60 MG; Start 08/13/18 at 09:00 Latanoprost (Xalatan) 1 drop QHS BOTH EYES Last administered on 08/13/18at 21:2 4; Admin Dose 1 DROP; Start 08/13/18 at 21:00 Levothyroxine Sodium (Synthroid) 75 mcg BEFORE BREAKFAST PO Last administered on 08/14/18at 06:51; Admin Dose 75 MCG; Start 08/13/18 at 07:00 Ticagrelor (Brilinta) 90 mg Q12 PO Last administered on 08/14/18at 08:17; Admin Dose 90 MG; Start 08/13/18 at 09:00 Furosemide (Lasix) 40 mg BID DIURETICS IV Last administered on 08/14/18at 05:21; Admin Dose 40 MG; Start 08/13/18 at 06:00 Acetaminophen (Tylenol Tab) 650 mg Q6H PRN PO MILD PAIN(1-3)OR ELEVATED TEMP; Start 08/13/18 at 00:00 Ondansetron HCl (Zofran Inj) 4 mg Q6H PRN IV NAUSEA AND/OR VOMITING; Start 08/13/18 at 00:00 Diagnostic Test (Pha) (Accu-Chek) 1 ea 02 XX ; Start 08/13/18 at 02:00 Insulin Aspart (Novolog Insulin Pen) NOVOLOG *MILD* ALGORITHM WITH MEALS BEDTIME SC ; Start 08/13/18 at 08:00 Miscellaneous Information 1 ea NOTE XX ; Start 08/13/18 at 00:30 Glucose (Glutose) 15 gm Q15M PRN PO DECREASED GLUCOSE; Start 08/13/18 at 00:30 Glucose (Glutose) 22.5 gm Q15M PRN PO DECREASED GLUCOSE; Start 08/13/18 at 00:30 Dextrose (D50w Syringe) 25 ml Q15M PRN IV DECREASED GLUCOSE; Start 08/13/18 at 00:30 Dextrose (D50w Syringe) 50 ml Q15M PRN IV DECREASED GLUCOSE; Start 08/13/18 at 00:30 Glucagon (Glucagen) 1 mg Q15M PRN IM DECREASED GLUCOSE; Start 08/13/18 at 00:30 Glucose (Glutose) 15 gm Q15M PRN BUCCAL DECREASED GLUCOSE; Start 08/13/18 at 00:30 MERT BENITEZ MD Aug 14, 2018 09:43
[2018-08-14] MEDS ORDERED: METOLAZONE 2.5 MG TAB PO SCH (10:30)
--- NOTE | 2018-08-14 11:35 | CONS ---
Assessment/Plan Assessment/Plan Hospital Course (Demo Recall) IMPRESSION: 1. Congestive heart failure exacerbation, systolic, acute on chronic. 2. Cardiomyopathy with decreased left ventricular ejection fraction last EF approximately 30% by echo in 04/2018. 3. History of PTCA and stent placement, most recently to right coronary artery, PDA and left main in 06/2017. 4. History of transcatheter aortic valve replacement in [facility]. 5. Hypertension. 6. Dyslipidemia. 7. Shortness of breath secondary to #1. 8. 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 Recc: -Contineu coreg/imdur/hydralazine -Lasix plus metolazone diuresis -Continue asa/brilinta -Continue statin and follow volume status clsoely Consultation Date/Type/Reason Admit Date/Time Aug 12, 2018 at 21:47 Initial Consult Date 08/13/18 Type of Consult Cardiology Reason for Consultation CHF Requesting Provider: MERT BENITEZ MD Date/Time of Note DATE: 08/14/18 TIME: 11:32 Exam/Review of Systems Vital Signs Vitals Vital Signs Date Temp Pulse Resp B/P (MAP) Pulse Ox O2 O2 Flow FiO2 Time Delivery Rate 08/14/18 71 09:00 08/14/18 98.0 18 153/71 99 07:21 (98) 08/13/18 Nasal 2.0 19:15 Cannula Intake and Output 08/13/18 08/13/18 08/14/18 1515:00 23:00 07:00 IntakeIntake Total 800 ml 550 ml OutputOutput Total 1400 ml 1250 ml BalanceBalance -600 ml -700 ml Exam Exam Review of Systems: CONSTITUTIONAL: No fevers, chills. PULMONARY: No sob CARDIOVASCULAR: No chest pain/palpitations GASTROINTESTINAL: No nausea/vomiting. GENITOURINARY: No hematuria/dysuria. MUSCULOSKELETAL: No myagias/arthalgias. PSYCHIATRIC: The patient denies depression. NEUROLOGIC: No weakness Constitutional: alert Psych: no complaints Head: normocephalic ENMT: mucosa pink and moist Neck: supple, jvd (9 cm water) Respiratory: diminished breath sounds (at bases/B) Cardiovascular: regular rate and rhythm Gastrointestinal: soft, non-tender Musculoskeletal: muscle tone (normal) Extremities: edema (none) Labs Result Diagram: 08/13/18 0457 08/14/18 0502 Results 24hrs Laboratory Tests Test 08/13/18 12:42 08/13/18 17:17 08/13/18 21:30 08/14/18 05:02 Bedside Glucose 144 179 128 Sodium Level 144 Potassium Level 3.4 L Chloride Level 107 Carbon Dioxide 26 Level Anion Gap 11 Blood Urea 31 H Nitrogen Creatinine 1.66 H Est Glomerular Filtrat Rate mL/min Glucose Level 139 Calcium Level 9.3 Test 08/14/18 05:03 08/14/18 07:50 08/14/18 09:35 Troponin I 0.025 Triglycerides 72 Level Cholesterol Level 142 LDL Cholesterol, 84 Calculated HDL Cholesterol 44 Cholesterol/HDL 3.2 Ratio Bedside Glucose 138 Blood Gas Blood arterial Specimen Source Arterial Blood 08/14/2018 11:04: Date Drawn 47 AM Arterial Blood pH 7.453 H (Temp corrected) Arterial Blood 37.7 pCO2 (Temp correct) Arterial Blood 76.8 L pO2 (Temp corrected) Arterial Blood 25.8 HCO3 Arterial Blood 1.9 Base Excess Arterial Blood 94.9 L Oxygen Saturation Conrad Test ACCEPTAB Arterial Blood Right Radial Gas Puncture Site Arterial 0.3 Blood Carboxyhemo globin Arterial Blood 0.2 Methemoglobin Blood Gas A-a O2 27.8 H Differential Oxyhemoglobin 94.4 Percent Blood Gas 37.0 Temperature Blood Gas ROOM AIR Modality FiO2 21.0 Blood Gas TM Notified Whom Blood Gas 08/14/2018 11:12: Notified Time 16 AM Medications Medications Current Medications Albuterol (Ventolin Hfa) 2 puff Q4H RESP THERAPY PRN INH WHEEZING AND SOB; Start 08/13/18 at 00:00 Aspirin (Halfprin) 81 mg DAILY PO Last administered on 08/14/18at 08:14; Admin Dose 81 MG; Start 08/13/18 at 09:00 Atorvastatin Calcium (Lipitor) 20 mg QHS PO Last administered on 08/13/18at 21:25; Admin Dose 20 MG; Start 08/13/18 at 21:00 Carvedilol (Coreg) 25 mg BID PO Last administered on 08/14/18at 08:14; Admin Dose 25 MG; Start 08/13/18 at 09:00 Hydralazine HCl (Apresoline) 50 mg Q8 PO Last administered on 08/14/18at 05:21; Admin Dose 50 MG; Start 08/13/18 at 06:00 Isosorbide Mononitrate (Imdur) 60 mg DAILY PO Last administered on 08/14/18at 08:14; Admin Dose 60 MG; Start 08/13/18 at 09:00 Latanoprost (Xalatan) 1 drop QHS BOTH EYES Last administered on 08/13/18at 21:24; Admin Dose 1 DROP; Start 08/13/18 at 21:00 Levothyroxine Sodium (Synthroid) 75 mcg BEFORE BREAKFAST PO Last administered on 08/14/18at 06:51; Admin Dose 75 MCG; Start 08/13/18 at 07:00 Ticagrelor (Brilinta) 90 mg Q12 PO Last administered on 08/14/18at 08:17; Admin Dose 90 MG; Start 08/13/18 at 09:00 Furosemide (Lasix) 40 mg BID DIURETICS IV Last administered on 08/14/18at 05:21; Admin Dose 40 MG; Start 08/13/18 at 06:00 Acetaminophen (Tylenol Tab) 650 mg Q6H PRN PO MILD PAIN(1-3)OR ELEVATED TEMP; Start 08/13/18 at 00:00 Ondansetron HCl (Zofran Inj) 4 mg Q6H PRN IV NAUSEA AND/OR VOMITING; Start 08/13/18 at 00:00 Diagnostic Test (Pha) (Accu-Chek) 1 ea 02 XX ; Start 08/13/18 at 02:00 Insulin Aspart (Novolog Insulin Pen) NOVOLOG *MILD* ALGORITHM WITH MEALS BEDTIME SC ; Start 08/13/18 at 08:00 Miscellaneous Information 1 ea NOTE XX ; Start 08/13/18 at 00:30 Glucose (Glutose) 15 gm Q15M PRN PO DECREASED GLUCOSE; Start 08/13/18 at 00:30 Glucose (Glutose) 22.5 gm Q15M PRN PO DECREASED GLUCOSE; Start 08/13/18 at 00:30 Dextrose (D50w Syringe) 25 ml Q15M PRN IV DECREASED GLUCOSE; Start 08/13/18 at 00:30 Dextrose (D50w Syringe) 50 ml Q15M PRN IV DECREASED GLUCOSE; Start 08/13/18 at 00:30 Glucagon (Glucagen) 1 mg Q15M PRN IM DECREASED GLUCOSE; Start 08/13/18 at 00:30 Glucose (Glutose) 15 gm Q15M PRN BUCCAL DECREASED GLUCOSE; Start 08/13/18 at 00:30 Metolazone (Zaroxolyn) 2.5 mg DAILY@1730 PO ; Start 08/14/18 at 17:30 ELEANOR ROLDAN Aug 14, 2018 11:35
--- NOTE | 2018-08-14 14:16 | HP ---
DATE OF ADMISSION: 08/12/2018 HISTORY OF PRESENT ILLNESS: An 83-year-old male with a history of CHF, previously was discharged wit h a diagnosis of congestive heart failure, systolic, acute on chronic, cardiomyopathy, ejection fract ion of 30%, history of percutaneous transluminal coronary angioplasty and stent placement, dyslipidem ia, diabetes, hypertension, CKD, hypothyroidism, electrolyte imbalance. The patient also has anemia, presented with short of breath and chest pain. He was seen in cardiology consultation. The patient was noted to have in the ER blood pressure of 162/84, hematocrit of 32.9, BUN 32, creatinine 1.90. EKG shows left bundle branch block pattern. PAST MEDICAL HISTORY: As mentioned above, CKD, hypertension, diabetes mellitus, cardiomyopathy, decr eased ejection fraction, dyslipidemia, history of CAD, PTCA and stent placement. The patient has a h istory of transcatheter aortic valve replacement in [facility]. ALLERGY HISTORY: NEGATIVE. FAMILY HISTORY: Negative. SOCIAL HISTORY: Ex-smoker. MEDICATION HISTORY: The patient is on: 1. Albuterol. 2. Allopurinol. 3. Aspirin. 4. Lipitor. 5. Coreg. 6. Lasix. 7. Hydralazine. 8. Isosorbide. 9. Xalatan eyedrops. 9. Levothyroxine. 10. Starlix. 11. Januvia. 12. Brilinta. Currently, he is on: 1. Albuterol. 2. Allopurinol. 3. Aspirin. 4. Atorvastatin. 5. Coreg. 6. Hydralazine. 7. Isosorbide. 8. Brilinta. 9. Zofran. 10. Levothyroxine. REVIEW OF SYSTEMS: HEENT: Unremarkable. RESPIRATORY: No shortness of breath, orthopnea, PND. ABDOMEN: Unremarkable. EXTREMITIES: No swelling. CENTRAL NERVOUS SYSTEM: Unremarkable. PHYSICAL EXAMINATION: GENERAL: The patient is awake, alert. VITAL SIGNS: Pulse 83, blood pressure 135/75. HEENT: Head is atraumatic, normocephalic. Pupils are equal, reactive to light. NECK: Supple. No JVD. LUNGS: Basilar rales noted. CARDIOVASCULAR: S1, S2 normal. ABDOMEN: Soft, obese. Bowel sounds are positive. No palpable mass. EXTREMITIES: No cyanosis, clubbing. Edema positive. CENTRAL NERVOUS SYSTEM: The patient is awake, alert with no focal deficit. LABORATORY DATA: Hematocrit 32.1. Sodium 145, potassium 3.7, BUN 32, creatinine 1.60. DIAGNOSTIC DATA: Chest x-ray reported as borderline congestive heart failure, single lead right vent ricular lead pacemaker AICD device. IMPRESSION: 1. Systolic heart failure. 2. Chronic kidney disease. 3. Rule out myocardial infarction. 4. AICD device placement. 5. Diabetes mellitus. 6. Dyslipidemia. 7. Electrolyte imbalance. 8. History of aortic valve replacement transcatheter. 9. Decreased ejection fraction. PLAN: Continue diuretic. Continue Brilinta. Continue home medications. Cardiology consultation. Orders were done. Dictated By: KIARA RING MD BS/NTS Conf#: [id number] DID#: [id number] CC: ELEANOR ROLDAN MD;*EndCC*
[2018-08-14] MEDS: METOLAZONE 2.5 MG TAB PO SCH (17:13)
[2018-08-14] MEDS: LATANOPROST 0.005% 2.5 ML OPH BOTH EYES SCH (21:39)
[2018-08-14] MEDS: ATORVASTATIN 20 MG TAB PO SCH (21:40)
[2018-08-15] VITALS (13 sets, daily range): BP systolic 119–132; BP diastolic 56–72; PULSE 67–79; RESP 18
[2018-08-15] MEDS: ACCU-CHEK XX SCH (02:27)
[2018-08-15] MEDS: FUROSEMIDE 40 MG INJ IV SCH ×2 (06:26→17:45)
[2018-08-15] MEDS: LEVOTHYROXINE 75 MCG TAB PO SCH (07:12)
[2018-08-15] MEDS: INSULIN ASPART [NOVOLOG] 3 ML PEN SC SCH ×4 (07:45→21:00)
[2018-08-15] MEDS: ISOSORBIDE MONONITRATE(SR)60 MG TAB PO SCH (08:18)
[2018-08-15] MEDS: ASPIRIN (EC) 81 MG TAB PO SCH (08:18)
[2018-08-15] MEDS: TICAGRELOR 90 MG TABLET PO SCH ×2 (08:24→21:06)
--- NOTE | 2018-08-15 09:08 | CONS ---
Consult Date/Type/Reason Admit Date/Time Aug 12, 2018 at 21:47 Initial Consult Date Requesting Provider: MERT BENITEZ MD Date/Time of Note DATE: 08/15/18 TIME: 09:06 Subjective No acute events - pt stable - improved SOB - no ectopy on tele ROS: No fever, no chills, no nausea, no vomiting, no diarrhea/constipation No recent weight changes No chest pain, no PND, no orthopnea - improved SOB No dizziness, blurred vision No thirst, no heat or cold intolerance Objective Vitals Vital Signs Date Temp Pulse Resp B/P (MAP) Pulse Ox O2 O2 Flow FiO2 Time Delivery Rate 08/15/18 75 08:44 08/15/18 98.3 18 124/62 98 07:21 (82) 08/14/18 Nasal 2.0 20:30 Cannula Intake and Output 08/14/18 08/14/18 08/15/18 1515:00 23:00 07:00 IntakeIntake Total 800 ml OutputOutput Total 2200 ml 300 ml BalanceBalance -1400 ml -300 ml Exam General: WN/WD/NAD, AOx 3 HEENT: Unicetric/atraumatic/EOMI ( follow commands) NECK: JVD elevated, no thyromegaly Lymph: no lymphadenopathy HEART: regular with no S3, II/ systolic murmur at apex, PMI L LUNGS: Coarse sounds ABD: soft, NT, ND, +BS : Intact Neuro: non focal SKIN: chronic changes EXT: trace edema Results/Medications Result Diagram: 08/13/18 0457 08/15/18 0517 Results 24 hrs Laboratory Tests Test 08/14/18 09:35 08/14/18 11:54 08/14/18 17:08 08/14/18 21:37 Blood Gas Blood arterial Specimen Source Arterial Blood 08/14/2018 11:04: Date Drawn 47 AM Arterial Blood pH 7.453 H (Temp corrected) Arterial Blood 37.7 pCO2 (Temp correct) Arterial Blood 76.8 L pO2 (Temp corrected) Arterial Blood 25.8 HCO3 Arterial Blood 1.9 Base Excess Arterial Blood 94.9 L Oxygen Saturation Conrad Test ACCEPTAB Arterial Blood Right Radial Gas Puncture Site Arterial 0.3 Blood Carboxyhemo globin Arterial Blood 0.2 Methemoglobin Blood Gas A-a O2 27.8 H Differential Oxyhemoglobin 94.4 Percent Blood Gas 37.0 Temperature Blood Gas ROOM AIR Modality FiO2 21.0 Blood Gas TM Notified Whom Blood Gas 08/14/2018 11:12: Notified Time 16 AM Bedside Glucose 179 141 108 Test 08/15/18 02:16 08/15/18 05:17 08/15/18 07:45 Bedside Glucose 150 130 Sodium Level 143 Potassium Level 3.6 Chloride Level 104 Carbon Dioxide 29 Level Anion Gap 10 Blood Urea 43 #H Nitrogen Creatinine 1.89 H Est Glomerular Filtrat Rate mL/min Glucose Level 134 Calcium Level 9.8 Phosphorus Level 5.2 H Magnesium Level 2.4 Home Meds Active Scripts Albuterol Sulfate* (Proair HFA*) 8.5 Gm Hfa.aer.ad, 2 PUFF INH Q4H PRN for WHEEZING AND SOB, #1 INHALER Prov:MERT BENITEZ MD 05/19/18 Hydralazine Hcl* (Apresoline*) 50 Mg Tab, 50 MG PO Q8 for 30 Days, TAB Prov:MYRA CABRALES 05/19/18 Atorvastatin Calcium (Atorvastatin Calcium) 20 Mg Tablet, 20 MG PO QHS for 30 Days, TAB Prov:MYRA CABRALES 05/19/18 Reported Medications Latanoprost (Xalatan) 2.5 Ml Drops, 1 DROP BOTH EYES QHS, #1 BOTTLE 05/09/18 Nateglinide* (Nateglinide*) 60 Mg Tablet, 180 MG PO AC MEALS, TAB 05/09/18 Furosemide* (Furosemide*) 40 Mg Tablet, 40 MG PO BID, TAB 12/15/17 Levothyroxine Sodium* (Levothyroxine Sodium*) 75 Mcg Tablet, 75 MCG PO BEFORE BREAKFAST, #30 TAB 10/27/17 Sitagliptin* (Januvia*) 50 Mg Tablet, 50 MG PO DAILY, #30 TAB 07/30/17 Isosorbide Mononitrate* (Isosorbide Mononitrate*) 60 Mg Tab.er.24h, 60 MG PO DAILY, TAB 07/30/17 Carvedilol* (Carvedilol*) 25 Mg Tablet, 25 MG PO BID, #60 TAB 07/30/17 Ticagrelor* (Brilinta*) 90 Mg Tablet, 90 MG PO Q12, TAB 07/30/17 Aspirin (Low Dose Aspirin) 81 Mg Tablet.dr, 81 MG PO DAILY, #30 TAB 07/30/17 Allopurinol* (Allopurinol*) 100 Mg Tablet, 100 MG PO DAILY, TAB 07/30/17 Medications Current Medications Albuterol (Ventolin Hfa) 2 puff Q4H RESP THERAPY PRN INH WHEEZING AND SOB; Start 08/13/18 at 00:00 Aspirin (Halfprin) 81 mg DAILY PO Last administered on 08/15/18 08:18; Admin Dose 81 MG; Start 08/13/18 at 09:00 Atorvastatin Calcium (Lipitor) 20 mg QHS PO Last administered on 08/14/18 21:40; Admin Dose 20 MG; Start 08/13/18 at 21:00 Carvedilol (Coreg) 25 mg BID PO Last administered on 08/15/18 08:18; Admin Dose 25 MG; Start 08/13/18 at 09:00 Hydralazine HCl (Apresoline) 50 mg Q8 PO Last administered on 08/15/18 06:26; Admin Dose 50 MG; Start 08/13/18 at 06:00 Isosorbide Mononitrate (Imdur) 60 mg DAILY PO Last administered on 08/15/18 08:18; Admin Dose 60 MG; Start 08/13/18 at 09:00 Latanoprost (Xalatan) 1 drop QHS BOTH EYES Last administered on 08/14/18 21:39; Admin Dose 1 DROP; Start 08/13/18 at 21:00 Levothyroxine Sodium (Synthroid) 75 mcg BEFORE BREAKFAST PO Last administered on 08/15/18 07:12; Admin Dose 75 MCG; Start 08/13/18 at 07:00 Ticagrelor (Brilinta) 90 mg Q12 PO Last administered on 08/15/18 08:24; Admin Dose 90 MG; Start 08/13/18 at 09:00 Furosemide (Lasix) 40 mg BID DIURETICS IV Last administered on 08/15/18 06:26; Admin Dose 40 MG; Start 08/13/18 at 06:00 Acetaminophen (Tylenol Tab) 650 mg Q6H PRN PO MILD PAIN(1-3)OR ELEVATED TEMP; Start 08/13/18 at 00:00 Ondansetron HCl (Zofran Inj) 4 mg Q6H PRN IV NAUSEA AND/OR VOMITING; Start 08/13/18 at 00:00 Diagnostic Test (Pha) (Accu-Chek) 1 ea 02 XX Last administered on 08/15/18at 02:27; Admin Dose 1 EA; Start 08/13/18 at 02:00 Insulin Aspart (Novolog Insulin Pen) NOVOLOG *MILD* ALGORITHM WITH MEALS BEDTIME SC Last administered on 08/14/18at 17:11; Admin Dose 1 UNIT; Start 08/13/18 at 08:00 Miscellaneous Information 1 ea NOTE XX ; Start 08/13/18 at 00:30 Glucose (Glutose) 15 gm Q15M PRN PO DECREASED GLUCOSE; Start 08/13/18 at 00:30 Glucose (Glutose) 22.5 gm Q15M PRN PO DECREASED GLUCOSE; Start 08/13/18 at 00:30 Dextrose (D50w Syringe) 25 ml Q15M PRN IV DECREASED GLUCOSE; Start 08/13/18 at 00:30 Dextrose (D50w Syringe) 50 ml Q15M PRN IV DECREASED GLUCOSE; Start 08/13/18 at 00:30 Glucagon (Glucagen) 1 mg Q15M PRN IM DECREASED GLUCOSE; Start 08/13/18 at 00:30 Glucose (Glutose) 15 gm Q15M PRN BUCCAL DECREASED GLUCOSE; Start 08/13/18 at 0 0:30 Metolazone (Zaroxolyn) 2.5 mg DAILY@1730 PO Last administered on 08/14/18at 17:13; Admin Dose 2.5 MG; Start 08/14/18 at 17:30 Assessment/Plan Hospital Course (Demo Recall) 1. Congestive heart failure exacerbation, systolic, acute on chronic - better today, con't gentle diuresis. 2. Cardiomyopathy with decreased left ventricular ejection fraction last EF kenny roximately 30% by echo in 04/2018- con;t fluid optimization. 3. History of PTCA and stent placement, most recently to right coronary artery, PDA and left main in 06/2017 - no new Sx now. 4. History of transcatheter aortic valve replacement in [facility] - stable by exam. 5. Hypertension- con't to keep BP < 140/90. 6. Dyslipidemia. 7. Shortness of breath secondary to #1 - better with diuresis. 8. 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 DONNA MORALES MD Aug 15, 2018 09:08
--- NOTE | 2018-08-15 15:33 | PN ---
Date/Time of Note Date/Time of Note DATE: 08/15/18 TIME: 15:31 Assessment/Plan VTE [place] [facility] [place]: 3 [place] [facility] [place] Yes Pharmacological prophylaxis: NA/contraindicated Pharm contraindication: low risk/ambulating Lines/Catheters IV Catheter Type (from [facility] Saline Lock Urinary Cath still in place: No Assessment/Plan Hospital Course 83 y/o with 1 Sob likely due to Congestive heart failure exacerbation, systolic, acute on chronic. 2. Cardiomyopathy with decreased left ventricular ejection fraction last EF approximately 30% by echo in 04/2018. 3. History of PTCA and stent placement, most recently to right coronary artery, PDA and left main in 06/2017. 4. History of transcatheter aortic valve replacement 5. Hypertension. 6. Dyslipidemia. 7 Chronic kidney disease III Plan -iv Lasix 40 twice daily, metolazone --1.7 L -chest x-ray is improved aeration -Continue with aspirin statin Coreg, Imdur hydralazine Brilinta - follow cardiology recs Ambulation likely DC tomorrow Result Diagram: 08/13/18 0457 08/15/18 0517 Results 24hrs Laboratory Tests Test 08/14/18 17:08 08/14/18 21:37 08/15/18 02:16 08/15/18 05:17 Bedside Glucose 141 108 150 Sodium Level 143 Potassium Level 3.6 Chloride Level 104 Carbon Dioxide Level 29 Anion Gap 10 Blood Urea Nitrogen 43 #H Creatinine 1.89 H Est Glomerular Filtrat Rate mL/min Glucose Level 134 Calcium Level 9.8 Phosphorus Level 5.2 H Magnesium Level 2.4 Test 08/15/18 07:45 08/15/18 12:14 Bedside Glucose 130 136 Subjective 24 Hr Interval Summary Free Text/Dictation Feels better. neg -1.7 L Exam/Review of Systems Exam Vitals Vital Signs Date Temp Pulse Resp B/P (MAP) Pulse Ox O2 O2 Flow FiO2 Time Delivery Rate 08/15/18 73 12:47 08/15/18 98.0 18 127/65 98 12:41 (85) 08/14/18 Nasal 2.0 20:30 Cannula Intake and Output 08/14/18 08/14/18 08/15/18 1414:59 22:59 06:59 IntakeIntake Total 800 ml OutputOutput Total 2200 ml 300 ml BalanceBalance -1400 ml -300 ml Exam GENERAL: The patient is alert, awake, in no acute distress. NECK: JVP is elevated CHEST: Fair air movement throughout, mild decreased breath sounds at the left base HEART: Regular rate and rhythm. Normal S1, S2. sherron ABDOMEN: Positive bowel sounds, soft. EXTREMITIES: No significant pitting edema. A 1+ pulses bilateral posterior tibial. Results Results 24hrs Laboratory Tests Test 08/14/18 17:08 08/14/18 21:37 08/15/18 02:16 08/15/18 05:17 Bedside Glucose 141 108 150 Sodium Level 143 Potassium Level 3.6 Chloride Level 104 Carbon Dioxide Level 29 Anion Gap 10 Blood Urea Nitrogen 43 #H Creatinine 1.89 H Est Glomerular Filtrat Rate mL/min Glucose Level 134 Calcium Level 9.8 Phosphorus Level 5.2 H Magnesium Level 2.4 Test 08/15/18 07:45 08/15/18 12:14 Bedside Glucose 130 136 Medications Medication Current Medications Albuterol (Ventolin Hfa) 2 puff Q4H RESP THERAPY PRN INH WHEEZING AND SOB; Start 08/13/18 at 00:00 Aspirin (Halfprin) 81 mg DAILY PO Last administered on 08/15/18 08:18; Admin Dose 81 MG; Start 08/13/18 at 09:00 Atorvastatin Calcium (Lipitor) 20 mg QHS PO Last administered on 08/14/18 21:40; Admin Dose 20 MG; Start 08/13/18 at 21:00 Carvedilol (Coreg) 25 mg BID PO Last administered on 08/15/18 08:18; Admin D ose 25 MG; Start 08/13/18 at 09:00 Hydralazine HCl (Apresoline) 50 mg Q8 PO Last administered on 08/15/18 13:21; Admin Dose 50 MG; Start 08/13/18 at 06:00 Isosorbide Mononitrate (Imdur) 60 mg DAILY PO Last administered on 08/15/18 08:18; Admin Dose 60 MG; Start 08/13/18 at 09:00 Latanoprost (Xalatan) 1 drop QHS BOTH EYES Last administered on 08/14/18at 21:39; Admin Dose 1 DROP; Start 08/13/18 at 21:00 Levothyroxine Sodium (Synthroid) 75 mcg BEFORE BREAKFAST PO Last administered on 08/15/18at 07:12; Admin Dose 75 MCG; Start 08/13/18 at 07:00 Ticagrelor (Brilinta) 90 mg Q12 PO Last administered on 08/15/18at 08:24; Admin Dose 90 MG; Start 08/13/18 at 09:00 Furosemide (Lasix) 40 mg BID DIURETICS IV Last administered on 08/15/18at 06:26; Admin Dose 40 MG; Start 08/13/18 at 06:00 Acetaminophen (Tylenol Tab) 650 mg Q6H PRN PO MILD PAIN(1-3)OR ELEVATED TEMP; Start 08/13/18 at 00:00 Ondansetron HCl (Zofran Inj) 4 mg Q6H PRN IV NAUSEA AND/OR VOMITING; Start 08/13/18 at 00:00 Diagnostic Test (Pha) (Accu-Chek) 1 ea 02 XX Last administered on 08/15/18at 02:27; Admin Dose 1 EA; Start 08/13/18 at 02:00 Insulin Aspart (Novolog Insulin Pen) NOVOLOG *MILD* ALGORITHM WITH MEALS BEDTIME SC Last administered on 08/14/18at 17:11; Admin Dose 1 UNIT; Start 08/13/18 at 08:00 Miscellaneous Information 1 ea NOTE XX ; Start 08/13/18 at 00:30 Glucose (Glutose) 15 gm Q15M PRN PO DECREASED GLUCOSE; Start 08/13/18 at 00:30 Glucose (Glutose) 22.5 gm Q15M PRN PO DECREASED GLUCOSE; Start 08/13/18 at 00:30 Dextrose (D50w Syringe) 25 ml Q15M PRN IV DECREASED GLUCOSE; Start 08/13/18 at 00:30 Dextrose (D50w Syringe) 50 ml Q15M PRN IV DECREASED GLUCOSE; Start 08/13/18 at 00:30 Glucagon (Glucagen) 1 mg Q15M PRN IM DECREASED GLUCOSE; Start 08/13/18 at 00:30 Glucose (Glutose) 15 gm Q15M PRN BUCCAL DECREASED GLUCOSE; Start 08/13/18 at 00:30 Metolazone (Zaroxolyn) 2.5 mg DAILY@1730 PO Last administered on 08/14/18at 17:13; Admin Dose 2.5 MG; Start 08/14/18 at 17:30 MERT BENITEZ MD Aug 15, 2018 15:33
[2018-08-15] MEDS: METOLAZONE 2.5 MG TAB PO SCH (17:10)
[2018-08-15] MEDS: LATANOPROST 0.005% 2.5 ML OPH BOTH EYES SCH (20:55)
[2018-08-15] MEDS: ATORVASTATIN 20 MG TAB PO SCH (20:56)
[2018-08-16] VITALS (11 sets, daily range): BP systolic 103–123; BP diastolic 56–66; PULSE 68–79; RESP 18–20
[2018-08-16] MEDS: ACCU-CHEK XX SCH (02:30)
[2018-08-16] MEDS: FUROSEMIDE 40 MG INJ IV SCH (05:39)
[2018-08-16] MEDS: LEVOTHYROXINE 75 MCG TAB PO SCH (05:39)
[2018-08-16] MEDS: INSULIN ASPART [NOVOLOG] 3 ML PEN SC SCH ×4 (08:04→20:12)
[2018-08-16] MEDS ORDERED: POTASSIUM CHLORIDE (SR) 20 MEQ TAB PO STA (08:09)
[2018-08-16] MEDS: ISOSORBIDE MONONITRATE(SR)60 MG TAB PO SCH (08:37)
[2018-08-16] MEDS: ASPIRIN (EC) 81 MG TAB PO SCH (08:37)
[2018-08-16] MEDS: TICAGRELOR 90 MG TABLET PO SCH ×2 (08:43→20:12)
--- NOTE | 2018-08-16 12:11 | PN ---
Date/Time of Note Date/Time of Note DATE: 08/16/18 TIME: 12:09 Assessment/Plan VTE Prophylaxis Risk score (from [facility] [place]0 risk: 3 SCD applied (from [facility] [place]): Yes Pharmacological prophylaxis: NA/contraindicated Pharm contraindication: low risk/ambulating Lines/Catheters IV C[facility]ter Type (from [facility] Saline Lock Urinary Cath still in place: No Assessment/Plan Hospital Course 83 y/o with 1 Sob likely due to Congestive heart failure exacerbation, systolic, acute on chronic. 2. Cardiomyopathy with decreased left ventricular ejection fraction last EF approximately 30% by echo in 04/2018. 3. History of PTCA and stent placement, most recently to right coronary artery, PDA and left main in 06/2017. 4. History of transcatheter aortic valve replacement 5. Hypertension. 6. Dyslipidemia. 7 Chronic kidney disease III now likely acute injury due to diuretics Plan -Diuretics hold due to worsening renal function -Check BMP tomorrow -chest x-ray is improved aeration -Continue with aspirin statin Coreg, Imdur hydralazine Brilinta - follow cardiology recs Result Diagram: 08/13/18 0457 08/16/18 0519 Results 24hrs Laboratory Tests Test 08/15/18 12:14 08/15/18 16:57 08/15/18 20:59 08/16/18 02:11 Bedside Glucose 136 139 126 145 Test 08/16/18 05:19 08/16/18 07:59 08/16/18 11:49 Sodium Level 140 Potassium Level 3.2 L Chloride Level 99 Carbon Dioxide Level 25 Anion Gap 16 H Blood Urea Nitrogen 62 H Creatinine 2.25 H Est Glomerular Filtrat Rate mL/min Glucose Level 148 Calcium Level 9.5 Bedside Glucose 149 171 Subjective 24 Hr Interval Summary Free Text/Dictation Cr continue to rise today diuretics held denies any shortness of breath Exam/Review of Systems Exam Vitals Vital Signs Date Temp Pulse Resp B/P (MAP) Pulse Ox O2 O2 Flow FiO2 Time Delivery Rate 08/16/18 98.4 79 119/66 92 Room Air 11:22 (83) 08/16/18 20 07:42 08/14/18 2.0 20:30 Intake and Output 08/15/18 08/15/18 08/16/18 1515:00 23:00 07:00 IntakeIntake Total 800 ml 200 ml OutputOutput Total 1000 ml 650 ml BalanceBalance -200 ml -450 ml Exam GENERAL: The patient is alert, awake, in no acute distress. NECK: JVP is elevated CHEST: Fair air movement throughout, mild decreased breath sounds at the left base HEART: Regular rate and rhythm. Normal S1, S2. sherron ABDOMEN: Positive bowel sounds, soft. EXTREMITIES: No significant pitting edema. A 1+ pulses bilateral posterior tibial. Results Results 24hrs Laboratory Tests Test 08/15/18 12:14 08/15/18 16:57 08/15/18 20:59 08/16/18 02:11 Bedside Glucose 136 139 126 145 Test 08/16/18 05:19 08/16/18 07:59 08/16/18 11:49 Sodium Level 140 Potassium Level 3.2 L Chloride Level 99 Carbon Dioxide Level 25 Anion Gap 16 H Blood Urea Nitrogen 62 H Creatinine 2.25 H Est Glomerular Filtrat Rate mL/min Glucose Level 148 Calcium Level 9.5 Bedside Glucose 149 171 Medications Medication Current Medications Albuterol (Ventolin Hfa) 2 puff Q4H RESP THERAPY PRN INH WHEEZING AND SOB; Start 08/13/18 at 00:00 Aspirin (Halfprin) 81 mg DAILY PO Last administered on 08/16/18 08:37; Admin Dose 81 MG; Start 08/13/18 at 09:00 Atorvastatin Calcium (Lipitor) 20 mg QHS PO Last administered on 08/15/18 20:56; Admin Dose 20 MG; Start 08/13/18 at 21:00 Carvedilol (Coreg) 25 mg BID PO Last administered on 08/16/18 08:37; Admin Dose 25 MG; Start 08/13/18 at 09:00 Hydralazine HCl (Apresoline) 50 mg Q8 PO Last administered on 08/16/18 05:39; Admin Dose 50 MG; Start 08/13/18 at 06:00 Isosorbide Mononitrate (Imdur) 60 mg DAILY PO Last administered on 08/16/18 08:37; Admin Dose 60 MG; Start 08/13/18 at 09:00 Latanoprost (Xalatan) 1 drop QHS BOTH EYES Last administered on 08/15/18at 20:55; Admin Dose 1 DROP; Start 08/13/18 at 21:00 Levothyroxine Sodium (Synthroid) 75 mcg BEFORE BREAKFAST PO Last administered on 08/16/18at 05:39; Admin Dose 75 MCG; Start 08/13/18 at 07:00 Ticagrelor (Brilinta) 90 mg Q12 PO Last administered on 08/16/18at 08:43; Admin Dose 90 MG; Start 08/13/18 at 09:00 Acetaminophen (Tylenol Tab) 650 mg Q6H PRN PO MILD PAIN(1-3)OR ELEVATED TEMP; Start 08/13/18 at 00:00 Ondansetron HCl (Zofran Inj) 4 mg Q6H PRN IV NAUSEA AND/OR VOMITING; Start 08/13/18 at 00:00 Diagnostic Test (Pha) (Accu-Chek) 1 ea 02 XX Last administered on 08/16/18at 02:30; Admin Dose 1 EA; Start 08/13/18 at 02:00 Insulin Aspart (Novolog Insulin Pen) NOVOLOG *MILD* ALGORITHM WITH MEALS BEDTIME SC Last administered on 08/16/18at 11:54; Admin Dose 1 UNIT; Start 08/13/18 at 08:00 Miscellaneous Information 1 ea NOTE XX ; Start 08/13/18 at 00:30 Glucose (Glutose) 15 gm Q15M PRN PO DECREASED GLUCOSE; Start 08/13/18 at 00:30 Glucose (Glutose) 22.5 gm Q15M PRN PO DECREASED GLUCOSE; Start 08/13/18 at 00:30 Dextrose (D50w Syringe) 25 ml Q15M PRN IV DECREASED GLUCOSE; Start 08/13/18 at 00:30 Dextrose (D50w Syringe) 50 ml Q15M PRN IV DECREASED GLUCOSE; Start 08/13/18 at 00:30 Glucagon (Glucagen) 1 mg Q15M PRN IM DECREASED GLUCOSE; Start 08/13/18 at 00:30 Glucose (Glutose) 15 gm Q15M PRN BUCCAL DECREASED GLUCOSE; Start 08/13/18 at 00:30 MERT BENITEZ MD Aug 16, 2018 12:11
--- NOTE | 2018-08-16 12:42 | CONS ---
Assessment/Plan Assessment/Plan Hospital Course (Demo Recall) IMPRESSION: 1. Congestive heart failure exacerbation, systolic, acute on chronic. 2. Cardiomyopathy with decreased left ventricular ejection fraction last EF approximately 30% by echo in 04/2018. 3. History of PTCA and stent placement, most recently to right coronary artery, PDA and left main in 06/2017. 4. History of transcatheter aortic valve replacement in [facility]. 5. Hypertension. 6. Dyslipidemia. 7. Shortness of breath secondary to #1- mow improved volume status 8. 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 Recc: -Contineu coreg/imdur/hydralazine -Continue asa/brilinta -Continue statin and follow volume status closely -Hold lasix and follow spindle maker Consultation Date/Type/Reason Admit Date/Time Aug 12, 2018 at 21:47 Initial Consult Date 08/13/18 Type of Consult Cardiology Reason for Consultation CHF Requesting Provider: MERT BENITEZ MD Date/Time of Note DATE: 08/16/18 TIME: 12:40 Exam/Review of Systems Vital Signs Vitals Vital Signs Date Temp Pulse Resp B/P (MAP) Pulse Ox O2 O2 Flow FiO2 Time Delivery Rate 08/16/18 73 12:29 08/16/18 98.4 119/66 92 Room Air 11:22 (83) 08/16/18 20 07:42 08/14/18 2.0 20:30 Intake and Output 08/15/18 08/15/18 08/16/18 1515:00 23:00 07:00 IntakeIntake Total 800 ml 200 ml OutputOutput Total 1000 ml 650 ml BalanceBalance -200 ml -450 ml Exam Exam Review of Systems: CONSTITUTIONAL: No fevers, chills. PULMONARY: No sob CARDIOVASCULAR: No chest pain/palpitations GASTROINTESTINAL: No nausea/vomiting. GENITOURINARY: No hematuria/dysuria. MUSCULOSKELETAL: No myagias/arthalgias. PSYCHIATRIC: The patient denies depression. NEUROLOGIC: No weakness Constitutional: alert Psych: no complaints Head: normocephalic ENMT: mucosa pink and moist Neck: supple, jvd (9 cm water) Respiratory: diminished breath sounds Cardiovascular: regular rate and rhythm Gastrointestinal: soft, non-tender Musculoskeletal: muscle tone (normal) Extremities: edema (none) Labs Result Diagram: 08/13/18 0457 08/16/18 0519 Results 24hrs Laboratory Tests Test 08/15/18 16:57 08/15/18 20:59 08/16/18 02:11 08/16/18 05:19 Bedside Glucose 139 126 145 Sodium Level 140 Potassium Level 3.2 L Chloride Level 99 Carbon Dioxide Level 25 Anion Gap 16 H Blood Urea Nitrogen 62 H Creatinine 2.25 H Est Glomerular Filtrat Rate mL/min Glucose Level 148 Calcium Level 9.5 Test 08/16/18 07:59 08/16/18 11:49 Bedside Glucose 149 171 Medications Medications Current Medications Albuterol (Ventolin Hfa) 2 puff Q4H RESP THERAPY PRN INH WHEEZING AND SOB; Start 08/13/18 at 00:00 Aspirin (Halfprin) 81 mg DAILY PO Last administered on 08/16/18 08:37; Admin Dose 81 MG; Start 08/13/18 at 09:00 Atorvastatin Calcium (Lipitor) 20 mg QHS PO Last administered on 08/15/18 20:56; Admin Dose 20 MG; Start 08/13/18 at 21:00 Carvedilol (Coreg) 25 mg BID PO Last administered on 08/16/18 08:37; Admin Dose 25 MG; Start 08/13/18 at 09:00 Hydralazine HCl (Apresoline) 50 mg Q8 PO Last administered on 08/16/18 05:39; Admin Dose 50 MG; Start 08/13/18 at 06:00 Isosorbide Mononitrate (Imdur) 60 mg DAILY PO Last administered on 08/16/18 08:37; Admin Dose 60 MG; Start 08/13/18 at 09:00 Latanoprost (Xalatan) 1 drop QHS BOTH EYES Last administered on 08/15/18 20:55; Admin Dose 1 DROP; Start 08/13/18 at 21:00 Levothyroxine Sodium (Synthroid) 75 mcg BEFORE BREAKFAST PO Last administered on 08/16/18 05:39; Admin Dose 75 MCG; Start 08/13/18 at 07:00 Ticagrelor (Brilinta) 90 mg Q12 PO Last administered on 08/16/18 08:43; Admin Dose 90 MG; Start 08/13/18 at 09:00 Acetaminophen (Tylenol Tab) 650 mg Q6H PRN PO MILD PAIN(1-3)OR ELEVATED TEMP; Start 08/13/18 at 00:00 Ondansetron HCl (Zofran Inj) 4 mg Q6H PRN IV NAUSEA AND/OR VOMITING; Start 08/13/18 at 00:00 Diagnostic Test (Pha) (Accu-Chek) 1 ea 02 XX Last administered on 08/16/18at 02:30; Admin Dose 1 EA; Start 08/13/18 at 02:00 Insulin Aspart (Novolog Insulin Pen) NOVOLOG *MILD* ALGORITHM WITH MEALS BEDTIME SC Last administered on 08/16/18at 11:54; Admin Dose 1 UNIT; Start 08/13/18 at 08:00 Miscellaneous Information 1 ea NOTE XX ; Start 08/13/18 at 00:30 Glucose (Glutose) 15 gm Q15M PRN PO DECREASED GLUCOSE; Start 08/13/18 at 00:30 Glucose (Glutose) 22.5 gm Q15M PRN PO DECREASED GLUCOSE; Start 08/13/18 at 00:30 Dextrose (D50w Syringe) 25 ml Q15M PRN IV DECREASED GLUCOSE; Start 08/13/18 at 00:30 Dextrose (D50w Syringe) 50 ml Q15M PRN IV DECREASED GLUCOSE; Start 08/13/18 at 00:30 Glucagon (Glucagen) 1 mg Q15M PRN IM DECREASED GLUCOSE; Start 08/13/18 at 00:30 Glucose (Glutose) 15 gm Q15M PRN BUCCAL DECREASED GLUCOSE; Start 08/13/18 at 00:30 ELEANOR ROLDAN Aug 16, 2018 12:41
[2018-08-16] MEDS: ATORVASTATIN 20 MG TAB PO SCH (19:53)
[2018-08-16] MEDS: LATANOPROST 0.005% 2.5 ML OPH BOTH EYES SCH (19:55)
[2018-08-17] VITALS (12 sets, daily range): BP systolic 101–132; BP diastolic 55–63; PULSE 67–80; RESP 18–20
[2018-08-17] MEDS: ACCU-CHEK XX SCH (02:00)
[2018-08-17] MEDS: LEVOTHYROXINE 75 MCG TAB PO SCH (06:04)
[2018-08-17] MEDS: ASPIRIN (EC) 81 MG TAB PO SCH (08:10)
[2018-08-17] MEDS: ISOSORBIDE MONONITRATE(SR)60 MG TAB PO SCH (08:10)
[2018-08-17] MEDS: TICAGRELOR 90 MG TABLET PO SCH ×2 (08:24→21:24)
[2018-08-17] MEDS: INSULIN ASPART [NOVOLOG] 3 ML PEN SC SCH ×4 (08:24→21:00)
--- NOTE | 2018-08-17 16:09 | PN ---
Date/Time of Note Date/Time of Note DATE: 08/17/18 TIME: 16:08 Assessment/Plan VTE Prophylaxis Risk score (from [facility] [place])>0 risk: 4 SCD applied (from [facility] [place]): No SCD contraindicated: low risk/ambulating Pharmacological prophylaxis: NA/contraindicated Pharm contraindication: low risk/ambulating Lines/Catheters IV [facility] Type (from [facility] Saline Lock Urinary Cath still in place: No Assessment/Plan Hospital Course 83 y/o with 1 Sob likely due to Congestive heart failure exacerbation, systolic, acute on chronic. 2. Cardiomyopathy with decreased left ventricular ejection fraction last EF approximately 30% by echo in 04/2018. 3. History of PTCA and stent placement, most recently to right coronary artery, PDA and left main in 06/2017. 4. History of transcatheter aortic valve replacement 5. Hypertension. 6. Dyslipidemia. 7 Chronic kidney disease III now likely acute injury due to diuretics/ATN CR uptrending to 2.8 Plan -Diuretics hold due to worsening renal function - trend Cr, should improve in day or two -Check BMP tomorrow -chest x-ray is improved aeration -Continue with aspirin statin Coreg, Imdur hydralazine Brilinta - follow cardiology recs Result Diagram: 08/13/18 0457 08/17/18 0601 Results 24hrs Laboratory Tests Test 08/16/18 17:17 08/16/18 19:52 08/17/18 06:01 08/17/18 08:08 Bedside Glucose 368 H 183 159 Sodium Level 142 Potassium Level 3.7 Chloride Level 103 Carbon Dioxide Level 22 Anion Gap 17 H Blood Urea Nitrogen 74 H Creatinine 2.80 H Est Glomerular Filtrat Rate mL/min Glucose Level 153 Calcium Level 9.1 Test 08/17/18 12:03 Bedside Glucose 242 H Subjective 24 Hr Interval Summary Free Text/Dictation cr continue to rise Exam/Review of Systems Exam Vitals Vital Signs Date Temp Pulse Resp B/P (MAP) Pulse Ox O2 O2 Flow FiO2 Time Delivery Rate 08/17/18 98.3 71 20 101/60 98 Nasal 15:31 (74) Cannula 08/14/18 2.0 20:30 Intake and Output 08/16/18 08/16/18 08/17/18 1515:00 23:00 07:00 IntakeIntake Total 600 ml 400 ml OutputOutput Total 400 ml BalanceBalance 600 ml 0 ml Exam GENERAL: The patient is alert, awake, in no acute distress. NECK: JVP is elevated CHEST: Fair air movement throughout, mild decreased breath sounds at the left base HEART: Regular rate and rhythm. Normal S1, S2. sherron ABDOMEN: Positive bowel sounds, soft. EXTREMITIES: No significant pitting edema. A 1+ pulses bilateral posterior tibi Results Results 24hrs Laboratory Tests Test 08/16/18 17:17 08/16/18 19:52 08/17/18 06:01 08/17/18 08:08 Bedside Glucose 368 H 183 159 Sodium Level 142 Potassium Level 3.7 Chloride Level 103 Carbon Dioxide Level 22 Anion Gap 17 H Blood Urea Nitrogen 74 H Creatinine 2.80 H Est Glomerular Filtrat Rate mL/min Glucose Level 153 Calcium Level 9.1 Test 08/17/18 12:03 Bedside Glucose 242 H Medications Medication Current Medications Albuterol (Ventolin Hfa) 2 puff Q4H RESP THERAPY PRN INH WHEEZING AND SOB; Start 08/13/18 at 00:00 Aspirin (Halfprin) 81 mg DAILY PO Last administered on 08/17/18 08:10; Admin Dose 81 MG; Start 08/13/18 at 09:00 Atorvastatin Calcium (Lipitor) 20 mg QHS PO Last administered on 08/16/18 19:53; Admin Dose 20 MG; Start 08/13/18 at 21:00 Carvedilol (Coreg) 25 mg BID PO Last administered on 08/17/18 08:10; Admin Dose 25 MG; Start 08/13/18 at 09:00 Hydralazine HCl (Apresoline) 50 mg Q8 PO Last administered on 08/16/18 05:39; Admin Dose 50 MG; Start 08/13/18 at 06:00 Isosorbide Mononitrate (Imdur) 60 mg DAILY PO Last administered on 08/17/18 08:10; Admin Dose 60 MG; Start 08/13/18 at 09:00 Latanoprost (Xalatan) 1 drop QHS BOTH EYES Last administered on 08/16/18 19:55; Admin Dose 1 DROP; Start 08/13/18 at 21:00 Levothyroxine Sodium (Synthroid) 75 mcg BEFORE BREAKFAST PO Last administered on 08/17/18 06:04; Admin Dose 75 MCG; Start 08/13/18 at 07:00 Ticagrelor (Brilinta) 90 mg Q12 PO Last administered on 08/17/18at 08:24; Admin Dose 90 MG; Start 08/13/18 at 09:00 Acetaminophen (Tylenol Tab) 650 mg Q6H PRN PO MILD PAIN(1-3)OR ELEVATED TEMP; Start 08/13/18 at 00:00 Ondansetron HCl (Zofran Inj) 4 mg Q6H PRN IV NAUSEA AND/OR VOMITING; Start 08/13/18 at 00:00 Diagnostic Test (Pha) (Accu-Chek) 1 ea 02 XX Last administered on 08/16/18at 02:30; Admin Dose 1 EA; Start 08/13/18 at 02:00 Insulin Aspart (Novolog Insulin Pen) NOVOLOG *MILD* ALGORITHM WITH MEALS BEDTIME SC Last administered on 08/17/18at 12:17; Admin Dose 3 UNIT; Start 08/13/18 at 08:00 Miscellaneous Information 1 ea NOTE XX ; Start 08/13/18 at 00:30 Glucose (Glutose) 15 gm Q15M PRN PO DECREASED GLUCOSE; Start 08/13/18 at 00:30 Glucose (Glutose) 22.5 gm Q15M PRN PO DECREASED GLUCOSE; Start 08/13/18 at 00:30 Dextrose (D50w Syringe) 25 ml Q15M PRN IV DECREASED GLUCOSE; Start 08/13/18 at 00:30 Dextrose (D50w Syringe) 50 ml Q15M PRN IV DECREASED GLUCOSE; Start 08/13/18 at 00:30 Glucagon (Glucagen) 1 mg Q15M PRN IM DECREASED GLUCOSE; Start 08/13/18 at 00:30 Glucose (Glutose) 15 gm Q15M PRN BUCCAL DECREASED GLUCOSE; Start 08/13/18 at 00:30 MERT BENITEZ MD Aug 17, 2018 16:08
[2018-08-17] MEDS: LATANOPROST 0.005% 2.5 ML OPH BOTH EYES SCH (21:15)
[2018-08-17] MEDS: ATORVASTATIN 20 MG TAB PO SCH (21:16)
[2018-08-18] VITALS (13 sets, daily range): BP systolic 103–125; BP diastolic 50–60; PULSE 62–75; RESP 18–20
[2018-08-18] MEDS: ACCU-CHEK XX SCH (02:00)
[2018-08-18] MEDS: LEVOTHYROXINE 75 MCG TAB PO SCH (04:44)
[2018-08-18] MEDS: INSULIN ASPART [NOVOLOG] 3 ML PEN SC SCH ×4 (08:04→20:17)
[2018-08-18] MEDS: ASPIRIN (EC) 81 MG TAB PO SCH (09:44)
[2018-08-18] MEDS: ISOSORBIDE MONONITRATE(SR)60 MG TAB PO SCH (09:45)
[2018-08-18] MEDS: TICAGRELOR 90 MG TABLET PO SCH ×2 (09:48→20:23)
--- NOTE | 2018-08-18 12:18 | CONS ---
Assessment/Plan Assessment/Plan Hospital Course (Demo Recall) IMPRESSION: 1. Congestive heart failure exacerbation, systolic, acute on chronic. 2. Cardiomyopathy with decreased left ventricular ejection fraction last EF approximately 30% by echo in 04/2018. 3. History of PTCA and stent placement, most recently to right coronary artery, PDA and left main in 06/2017. 4. History of transcatheter aortic valve replacement in [facility]. 5. Hypertension. 6. Dyslipidemia. 7. Shortness of breath secondary to #1- mow improved volume status 8. 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-some mild improvement in map and chart mounter Recc: -Contineu coreg/imdur/hydralazine -Continue asa/brilinta -Continue statin and follow volume status closely -Holding lasix and follow map and chart mounter Consultation Date/Type/Reason Admit Date/Time Aug 12, 2018 at 21:47 Initial Consult Date 08/13/18 Type of Consult Cardiology Reason for Consultation CHF Requesting Provider: MERT BENITEZ MD Date/Time of Note DATE: 08/18/18 TIME: 12:17 Exam/Review of Systems Vital Signs Vitals Vital Signs Date Temp Pulse Resp B/P (MAP) Pulse Ox O2 O2 Flow FiO2 Time Delivery Rate 08/18/18 69 12:16 08/18/18 97.9 20 119/59 97 Nasal 11:29 (79) Cannula 08/14/18 2.0 20:30 Intake and Output 08/17/18 08/17/18 08/18/18 1515:00 23:00 07:00 IntakeIntake Total 720 ml 300 ml BalanceBalance 720 ml 300 ml Exam Exam Review of Systems: CONSTITUTIONAL: No fevers, chills. PULMONARY: No sob CARDIOVASCULAR: No chest pain/palpitations GASTROINTESTINAL: No nausea/vomiting. GENITOURINARY: No hematuria/dysuria. MUSCULOSKELETAL: No myagias/arthalgias. PSYCHIATRIC: The patient denies depression. NEUROLOGIC: No weakness Constitutional: alert, oriented Psych: no complaints Head: normocephalic ENMT: mucosa pink and moist Neck: supple, jvd (9 cm water) Respiratory: diminished breath sounds (at bases/B) Cardiovascular: regular rate and rhythm Gastrointestinal: soft, non-tender Musculoskeletal: muscle tone (normal) Extremities: edema (none) Neurological: other (No focal deficits) Labs Result Diagram: 08/18/18 0524 Results 24hrs Laboratory Tests Test 2/28/19 17:22 08/17/18 21:15 08/18/18 05:23 08/18/18 08:02 Bedside Glucose 119 157 152 Sodium Level 141 Potassium Level 3.7 Chloride Level 101 Carbon Dioxide Level 25 Anion Gap 15 H Blood Urea Nitrogen 73 H Creatinine 2.66 H Est Glomerular Filtrat Rate mL/min Glucose Level 136 Calcium Level 9.0 Test 08/18/18 11:59 Bedside Glucose 209 Medications Medications Current Medications Albuterol (Ventolin Hfa) 2 puff Q4H RESP THERAPY PRN INH WHEEZING AND SOB; Start 08/13/18 at 00:00 Aspirin (Halfprin) 81 mg DAILY PO Last administered on 08/18/18 09:44; Admin Dose 81 MG; Start 08/13/18 at 09:00 Atorvastatin Calcium (Lipitor) 20 mg QHS PO Last administered on 08/17/18 21:16; Admin Dose 20 MG; Start 08/13/18 at 21:00 Carvedilol (Coreg) 25 mg BID PO Last administered on 08/18/18 09:46; Admin Dose 25 MG; Start 08/13/18 at 09:00 Hydralazine HCl (Apresoline) 50 mg Q8 PO Last administered on 08/18/18 04:44; Admin Dose 50 MG; Start 08/13/18 at 06:00 Isosorbide Mononitrate (Imdur) 60 mg DAILY PO Last administered on 08/18/18 09:45; Admin Dose 60 MG; Start 08/13/18 at 09:00 Latanoprost (Xalatan) 1 drop QHS BOTH EYES Last administered on 08/17/18 21:15; Admin Dose 1 DROP; Start 08/13/18 at 21:00 Levothyroxine Sodium (Synthroid) 75 mcg BEFORE BREAKFAST PO Last administered on 08/18/18 04:44; Admin Dose 75 MCG; Start 08/13/18 at 07:00 Ticagrelor (Brilinta) 90 mg Q12 PO Last administered on 08/18/18 09:48; Admin Dose 90 MG; Start 08/13/18 at 09:00 Acetaminophen (Tylenol Tab) 650 mg Q6H PRN PO MILD PAIN(1-3)OR ELEVATED TEMP; Start 08/13/18 at 00:00 Ondansetron HCl (Zofran Inj) 4 mg Q6H PRN IV NAUSEA AND/OR VOMITING; Start 08/13/18 at 00:00 Diagnostic Test (Pha) (Accu-Chek) 1 ea 02 XX Last administered on 08/16/18at 02:30; Admin Dose 1 EA; Start 08/13/18 at 02:00 Insulin Aspart (Novolog Insulin Pen) NOVOLOG *MILD* ALGORITHM WITH MEALS BEDTIME SC Last administered on 08/18/18at 08:04; Admin Dose 1 UNIT; Start 08/13/18 at 08:00 Miscellaneous Information 1 ea NOTE XX ; Start 08/13/18 at 00:30 Glucose (Glutose) 15 gm Q15M PRN PO DECREASED GLUCOSE; Start 08/13/18 at 00:30 Glucose (Glutose) 22.5 gm Q15M PRN PO DECREASED GLUCOSE; Start 08/13/18 at 00:30 Dextrose (D50w Syringe) 25 ml Q15M PRN IV DECREASED GLUCOSE; Start 08/13/18 at 00:30 Dextrose (D50w Syringe) 50 ml Q15M PRN IV DECREASED GLUCOSE; Start 08/13/18 at 00:30 Glucagon (Glucagen) 1 mg Q15M PRN IM DECREASED GLUCOSE; Start 08/13/18 at 00:30 Glucose (Glutose) 15 gm Q15M PRN BUCCAL DECREASED GLUCOSE; Start 08/13/18 at 00:30 ELEANOR ROLDAN Aug 18, 2018 12:18
--- NOTE | 2018-08-18 13:35 | RADRPT ---
Vent Rate: 71 bpm RR Interval: 0 msec NC Interval: 170 msec QRS Duration: 170 msec QT Interval: 490 msec QTC Interval: 532 msec P-R-T [place]: 56 - 1 - 162 degrees Normal sinus rhythm Left bundle branch block Abnormal ECG Electronically Signed By: Baron Flores
--- NOTE | 2018-08-18 14:51 | PN ---
Date/Time of Note Date/Time of Note DATE: 08/18/18 TIME: 14:48 Assessment/Plan VTE Prophylaxis Risk score (from [facility])>0 risk: 5 SCD applied (from [facility]): No SCD contraindicated: low risk/ambulating Pharmacological prophylaxis: NA/contraindicated Pharm contraindication: anticoag not tolerated Lines/Catheters IV [facility] (from [facility] Saline Lock Urinary Cath still in place: No Assessment/Plan Hospital Course 1 Sob likely due to Congestive heart failure exacerbation, systolic, acute on chronic. 2. Cardiomyopathy with decreased left ventricular ejection fraction last EF approximately 30% by echo in 04/2018. 3. History of PTCA and stent placement, most recently to right coronary artery, PDA and left main in 06/2017. 4. History of transcatheter aortic valve replacement 5. Hypertension. 6. Dyslipidemia. 7 Chronic kidney disease III now likely acute injury due to diuretics/ATN CR uptrending to 2.8 8. Anemia Assessment/Plan -Diuretics hold due to worsening renal function -fluid restriction 1.2L - trend Cr, 2.66 -Check BMP tomorrow -chest x-ray is improved aeration -Continue with aspirin statin Coreg, Imdur hydralazine Brilinta - follow cardiology recs -ABG tomorrow Result Diagram: 08/18/18 0523 Results 24hrs Laboratory Tests Test 08/17/18 17:22 08/17/18 21:15 08/18/18 05:23 08/18/18 08:02 Bedside Glucose 119 157 152 Sodium Level 141 Potassium Level 3.7 Chloride Level 101 Carbon Dioxide Level 25 Anion Gap 15 H Blood Urea Nitrogen 73 H Creatinine 2.66 H Est Glomerular Filtrat Rate mL/min Glucose Level 136 Calcium Level 9.0 Test 08/18/18 11:59 Bedside Glucose 209 Subjective 24 Hr Interval Summary Respiratory: shortness of breath Exam/Review of Systems Exam Vitals Vital Signs Date Temp Pulse Resp B/P (MAP) Pulse Ox O2 O2 Flow FiO2 Time Delivery Rate 08/18/18 69 12:16 08/18/18 97.9 20 119/59 97 Nasal 11:29 (79) Cannula 08/14/18 2.0 20:30 Intake and Output 08/17/18 08/17/18 08/18/18 1515:00 23:00 07:00 IntakeIntake Total 720 ml 300 ml BalanceBalance 720 ml 300 ml Constitutional: alert, oriented Neck: supple Respiratory: clear to auscultation Cardiovascular: regular rate and rhythm Gastrointestinal: soft Genitourinary - Male: CVA tenderness; No nl penis, No nl scrotum, No discharge, No other Results Results 24hrs Laboratory Tests Test 08/17/18 17:22 08/17/18 21:15 08/18/18 05:23 08/18/18 08:02 Bedside Glucose 119 157 152 Sodium Level 141 Potassium Level 3.7 Chloride Level 101 Carbon Dioxide Level 25 Anion Gap 15 H Blood Urea Nitrogen 73 H Creatinine 2.66 H Est Glomerular Filtrat Rate mL/min Glucose Level 136 Calcium Level 9.0 Test 08/18/18 11:59 Bedside Glucose 209 Medications Medication Current Medications Albuterol (Ventolin Hfa) 2 puff Q4H RESP THERAPY PRN INH WHEEZING AND SOB; Start 08/13/18 at 00:00 Aspirin (Halfprin) 81 mg DAILY PO Last administered on 08/18/18 09:44; Admin Dose 81 MG; Start 08/13/18 at 09:00 Atorvastatin Calcium (Lipitor) 20 mg QHS PO Last administered on 08/17/18 21:16; Admin Dose 20 MG; Start 08/13/18 at 21:00 Carvedilol (Coreg) 25 mg BID PO Last administered on 08/18/18 09:46; Admin Dose 25 MG; Start 08/13/18 at 09:00 Hydralazine HCl (Apresoline) 50 mg Q8 PO Last administered on 08/18/18 14:04; Admin Dose 50 MG; Start 08/13/18 at 06:00 Isosorbide Mononitrate (Imdur) 60 mg DAILY PO Last administered on 08/18/18 09:45; Admin Dose 60 MG; Start 08/13/18 at 09:00 Latanoprost (Xalatan) 1 drop QHS BOTH EYES Last administered on 08/17/18 21:15; Admin Dose 1 DROP; Start 08/13/18 at 21:00 Levothyroxine Sodium (Synthroid) 75 mcg BEFORE BREAKFAST PO Last administered on 08/18/18 04:44; Admin Dose 75 MCG; Start 08/13/18 at 07:00 Ticagrelor (Brilinta) 90 mg Q12 PO Last administered on 3/1/19at 09:48; Admin Dose 90 MG; Start 08/13/18 at 09:00 Acetaminophen (Tylenol Tab) 650 mg Q6H PRN PO MILD PAIN(1-3)OR ELEVATED TEMP; Start 08/13/18 at 00:00 Ondansetron HCl (Zofran Inj) 4 mg Q6H PRN IV NAUSEA AND/OR VOMITING; Start 08/13/18 at 00:00 Diagnostic Test (Pha) (Accu-Chek) 1 ea 02 XX Last administered on 08/16/18at 02:30; Admin Dose 1 EA; Start 08/13/18 at 02:00 Insulin Aspart (Novolog Insulin Pen) NOVOLOG *MILD* ALGORITHM WITH MEALS BEDTIME SC Last administered on 08/18/18at 14:02; Admin Dose 2 UNIT; Start 08/13/18 at 08:00 Miscellaneous Information 1 ea NOTE XX ; Start 08/13/18 at 00:30 Glucose (Glutose) 15 gm Q15M PRN PO DECREASED GLUCOSE; Start 08/13/18 at 00:30 Glucose (Glutose) 22.5 gm Q15M PRN PO DECREASED GLUCOSE; Start 08/13/18 at 00:30 Dextrose (D50w Syringe) 25 ml Q15M PRN IV DECREASED GLUCOSE; Start 08/13/18 at 00:30 Dextrose (D50w Syringe) 50 ml Q15M PRN IV DECREASED GLUCOSE; Start 08/13/18 at 00:30 Glucagon (Glucagen) 1 mg Q15M PRN IM DECREASED GLUCOSE; Start 08/13/18 at 00:30 Glucose (Glutose) 15 gm Q15M PRN BUCCAL DECREASED GLUCOSE; Start 08/13/18 at 00:30 MYRA CABRALES Aug 18, 2018 14:50
[2018-08-18] MEDS: ATORVASTATIN 20 MG TAB PO SCH (20:16)
[2018-08-18] MEDS: LATANOPROST 0.005% 2.5 ML OPH BOTH EYES SCH (20:18)
[2018-08-19] VITALS (10 sets, daily range): BP systolic 98–123; BP diastolic 52–62; PULSE 62–75; RESP 18–20
[2018-08-19] MEDS: ACCU-CHEK XX SCH (02:00)
[2018-08-19] MEDS: LEVOTHYROXINE 75 MCG TAB PO SCH (06:05)
[2018-08-19] MEDS: INSULIN ASPART [NOVOLOG] 3 ML PEN SC SCH ×4 (08:00→20:45)
[2018-08-19] MEDS: ISOSORBIDE MONONITRATE(SR)60 MG TAB PO SCH (08:09)
[2018-08-19] MEDS: ASPIRIN (EC) 81 MG TAB PO SCH (08:09)
[2018-08-19] MEDS: TICAGRELOR 90 MG TABLET PO SCH ×2 (08:23→20:46)
--- NOTE | 2018-08-19 13:03 | CONS ---
Consult Date/Type/Reason Admit Date/Time Aug 12, 2018 at 21:47 Initial Consult Date Requesting Provider: MERT BENITEZ MD Date/Time of Note DATE: 08/19/18 TIME: 12:58 Subjective NO acute events - pt still with mild SOB - con't diuresis. ROS: No fever, no chills, no nausea, no vomiting, no diarrhea/constipation No recent weight changes No chest pain, no PND, no orthopnea - still SOB - con't med rx No dizziness, blurred vision No thirst, no heat or cold intolerance Objective Vitals Vital Signs Date Temp Pulse Resp B/P (MAP) Pulse Ox O2 O2 Flow FiO2 Time Delivery Rate 08/19/18 63 12:07 08/19/18 98.3 18 98/52 (67) 93 Nasal 2.0 11:43 Cannula Intake and Output 08/18/18 08/18/18 08/19/18 1515:00 23:00 07:00 IntakeIntake Total 1180 ml OutputOutput Total 1000 ml BalanceBalance 180 ml Exam General: WN/WD/NAD, AOx 3 HEENT: Unicetric/atraumatic/EOMI (follows commands) NECK: JVD elevated, no thyromegaly Lymph: no lymphadenopathy HEART: regular with no S3, II/ systolic murmur at apex, PMI L LUNGS: Coarse sounds ABD: soft, NT, ND, +BS : Intact Neuro: non focal SKIN: chronic changes EXT: trace edema Results/Medications Result Diagram: 08/19/18 0520 08/19/18 0520 Results 24 hrs Laboratory Tests Test 08/18/18 17:15 08/18/18 20:15 08/19/18 05:20 08/19/18 08:08 Bedside Glucose 123 127 116 White Blood Count 5.6 Red Blood Count 4.14 L Hemoglobin 10.9 L Hematocrit 33.9 L Mean Corpuscular Volume 81.9 L Mean Corpuscular 26.3 L Hemoglobin Mean Corpuscular 32.2 Hemoglobin Concent Red Cell Distribution 17.0 H Width Platelet Count 156 # Mean Platelet Volume 11.6 H Immature Granulocytes % 1.400 H Neutrophils % 42.9 Lymphocytes % 42.9 Monocytes % 10.8 Eosinophils % 1.8 Basophils % 0.2 Nucleated Red Blood 0.0 Cells % Immature Granulocytes # 0.080 H Neutrophils # 2.4 Lymphocytes # 2.4 Monocytes # 0.6 Eosinophils # 0.1 Basophils # 0.0 Nucleated Red Blood 0.0 Cells # Sodium Level 141 Potassium Level 3.6 Chloride Level 103 Carbon Dioxide Level 25 Anion Gap 13 Blood Urea Nitrogen 78 H Creatinine 2.39 H Est Glomerular Filtrat Rate mL/min Glucose Level 121 Calcium Level 9.1 Thyroid Stimulating 0.552 Hormone (TSH) Test 08/19/18 12:18 Bedside Glucose 216 Home Meds Active Scripts Albuterol Sulfate* (Proair HFA*) 8.5 Gm Hfa.aer.ad, 2 PUFF INH Q4H PRN for WHEEZING AND SOB, #1 INHALER Prov:MERT BENITEZ MD 05/19/18 Hydralazine Hcl* (Apresoline*) 50 Mg Tab, 50 MG PO Q8 for 30 Days, TAB Prov:MYRA CABRALES 05/19/18 Atorvastatin Calcium (Atorvastatin Calcium) 20 Mg Tablet, 20 MG PO QHS for 30 Days, TAB Prov:MYRA CABRALES 05/19/18 Reported Medications Latanoprost (Xalatan) 2.5 Ml Drops, 1 DROP BOTH EYES QHS, #1 BOTTLE 05/09/18 Nateglinide* (Nateglinide*) 60 Mg Tablet, 180 MG PO AC MEALS, TAB 05/09/18 Furosemide* (Furosemide*) 40 Mg Tablet, 40 MG PO BID, TAB 12/15/17 Levothyroxine Sodium* (Levothyroxine Sodium*) 75 Mcg Tablet, 75 MCG PO BEFORE BREAKFAST, #30 TAB 10/27/17 Sitagliptin* (Januvia*) 50 Mg Tablet, 50 MG PO DAILY, #30 TAB 07/30/17 Isosorbide Mononitrate* (Isosorbide Mononitrate*) 60 Mg Tab.er.24h, 60 MG PO DAILY, TAB 07/30/17 Carvedilol* (Carvedilol*) 25 Mg Tablet, 25 MG PO BID, #60 TAB 07/30/17 Ticagrelor* (Brilinta*) 90 Mg Tablet, 90 MG PO Q12, TAB 07/30/17 Aspirin (Low Dose Aspirin) 81 Mg Tablet.dr, 81 MG PO DAILY, #30 TAB 07/30/17 Allopurinol* (Allopurinol*) 100 Mg Tablet, 100 MG PO DAILY, TAB 07/30/17 Medications Current Medications Albuterol (Ventolin Hfa) 2 puff Q4H RESP THERAPY PRN INH WHEEZING AND SOB; Start 08/13/18 at 00:00 Aspirin (Halfprin) 81 mg DAILY PO Last administered on 08/19/18 08:09; Admin Dose 81 MG; Start 08/13/18 at 09:00 Atorvastatin Calcium (Lipitor) 20 mg QHS PO Last administered on 08/18/18 20:16; Admin Dose 20 MG; Start 08/13/18 at 21:00 Carvedilol (Coreg) 25 mg BID PO Last administered on 08/19/18 08:09; Admin Dose 25 MG; Start 08/13/18 at 09:00 Hydralazine HCl (Apresoline) 50 mg Q8 PO Last administered on 08/19/18 06:05; Admin Dose 50 MG; Start 08/13/18 at 06:00 Isosorbide Mononitrate (Imdur) 60 mg DAILY PO Last administered on 08/19/18 08:09; Admin Dose 60 MG; Start 08/13/18 at 09:00 Latanoprost (Xalatan) 1 drop QHS BOTH EYES Last administered on 08/18/18 20:18; Admin Dose 1 DROP; Start 08/13/18 at 21:00 Levothyroxine Sodium (Synthroid) 75 mcg BEFORE BREAKFAST PO Last administered on 08/19/18 06:05; Admin Dose 75 MCG; Start 08/13/18 at 07:00 Ticagrelor (Brilinta) 90 mg Q12 PO Last administered on 08/19/18 08:23; Admin Dose 90 MG; Start 08/13/18 at 09:00 Acetaminophen (Tylenol Tab) 650 mg Q6H PRN PO MILD PAIN(1-3)OR ELEVATED TEMP; Start 08/13/18 at 00:00 Ondansetron HCl (Zofran Inj) 4 mg Q6H PRN IV NAUSEA AND/OR VOMITING; Start 08/13/18 at 00:00 Diagnostic Test (Pha) (Accu-Chek) 1 ea 02 XX Last administered on 08/16/18 02:30; Admin Dose 1 EA; Start 2/24/19 at 02:00 Insulin Aspart (Novolog Insulin Pen) NOVOLOG *MILD* ALGORITHM WITH MEALS BEDTIME SC Last administered on 08/19/18at 12:24; Admin Dose 2 UNIT; Start 08/13/18 at 08:00 Miscellaneous Information 1 ea NOTE XX ; Start 08/13/18 at 00:30 Glucose (Glutose) 15 gm Q15M PRN PO DECREASED GLUCOSE; Start 08/13/18 at 00:30 Glucose (Glutose) 22.5 gm Q15M PRN PO DECREASED GLUCOSE; Start 08/13/18 at 00:30 Dextrose (D50w Syringe) 25 ml Q15M PRN IV DECREASED GLUCOSE; Start 08/13/18 at 00:30 Dextrose (D50w Syringe) 50 ml Q15M PRN IV DECREASED GLUCOSE; Start 08/13/18 at 00:30 Glucagon (Glucagen) 1 mg Q15M PRN IM DECREASED GLUCOSE; Start 08/13/18 at 00:30 Glucose (Glutose) 15 gm Q15M PRN BUCCAL DECREASED GLUCOSE; Start 08/13/18 at 00:30 Assessment/Plan Hospital Course (Demo Recall) 1. Congestive heart failure exacerbation, systolic, acute on chronic - better today, con't gentle diuresis - con't diuretics. 2. Cardiomyopathy with decreased left ventricular ejection fraction last EF approximately 30% by echo in 04/2018- con;t fluid optimization. ICD in [facility]. 3. History of PTCA and stent placement, most recently to right coronary artery, PDA and left main in 06/2017 - no new Sx now. 4. History of transcatheter aortic valve replacement in [facility] - stable by exam. Stable by exam. 5. Hypertension- con't to keep BP < 140/90. Treated. 6. Dyslipidemia. 7. Shortness of breath secondary to #1 - better with diuresis. 8. 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-some mild improvement in case folder - stable urine output now. CR on hiigh side at 2.39 DONNA MORALES MD Aug 19, 2018 13:03
--- NOTE | 2018-08-19 13:09 | PN ---
Date/Time of Note Date/Time of Note DATE: 08/19/18 TIME: 13:07 Assessment/Plan VTE Prophylaxis Risk score (from [facility] [place])>0 risk: 5 SCD applied (from [facility] [place]): No SCD contraindicated: low risk/ambulating Pharmacological prophylaxis: NA/contraindicated Pharm contraindication: anticoag not tolerated Lines/Catheters IV [facility]from [facility] Saline Lock Urinary Cath still in place: No Assessment/Plan Hospital Course 1 Sob likely due to Congestive heart failure exacerbation, systolic, acute on chronic. 2. Cardiomyopathy with decreased left ventricular ejection fraction last EF approximately 30% by echo in 04/2018. 3. History of PTCA and stent placement, most recently to right coronary artery, PDA and left main in 06/2017. 4. History of transcatheter aortic valve replacement 5. Hypertension. 6. Dyslipidemia. 7 Chronic kidney disease III now likely acute injury due to diuretics/ATN CR uptrending to 2.8 8. Anemia Assessment/Plan - start gentle diuretics -ambulate -fluid restriction 1.2L - trend Cr, 2.66 -Check BMP tomorrow -chest x-ray is improved aeration -Continue with aspirin statin Coreg, Imdur hydralazine Brilinta - follow cardiology recs Result Diagram: 08/19/18 0520 08/19/18 0520 Results 24hrs Laboratory Tests Test 08/18/18 17:15 08/18/18 20:15 08/19/18 05:20 08/19/18 08:08 Bedside Glucose 123 127 116 White Blood Count 5.6 Red Blood Count 4.14 L Hemoglobin 10.9 L Hematocrit 33.9 L Mean Corpuscular Volume 81.9 L Mean Corpuscular 26.3 L Hemoglobin Mean Corpuscular 32.2 Hemoglobin Concent Red Cell Distribution 17.0 H Width Platelet Count 156 # Mean Platelet Volume 11.6 H Immature Granulocytes % 1.400 H Neutrophils % 42.9 Lymphocytes % 42.9 Monocytes % 10.8 Eosinophils % 1.8 Basophils % 0.2 Nucleated Red Blood 0.0 Cells % Immature Granulocytes # 0.080 H Neutrophils # 2.4 Lymphocytes # 2.4 Monocytes # 0.6 Eosinophils # 0.1 Basophils # 0.0 Nucleated Red Blood 0.0 Cells # Sodium Level 141 Potassium Level 3.6 Chloride Level 103 Carbon Dioxide Level 25 Anion Gap 13 Blood Urea Nitrogen 78 H Creatinine 2.39 H Est Glomerular Filtrat Rate mL/min Glucose Level 121 Calcium Level 9.1 Thyroid Stimulating 0.552 Hormone (TSH) Test 08/19/18 12:18 Bedside Glucose 216 Subjective 24 Hr Interval Summary Respiratory: shortness of breath Exam/Review of Systems Exam Vitals Vital Signs Date Temp Pulse Resp B/P (MAP) Pulse Ox O2 O2 Flow FiO2 Time Delivery Rate 08/19/18 63 12:07 08/19/18 98.3 18 98/52 (67) 93 Nasal 2.0 11:43 Cannula Intake and Output 08/18/18 08/18/18 08/19/18 1515:00 23:00 07:00 IntakeIntake Total 1180 ml OutputOutput Total 1000 ml BalanceBalance 180 ml Constitutional: alert, oriented Neck: supple Respiratory: diminished breath sounds Cardiovascular: regular rate and rhythm Gastrointestinal: soft Genitourinary - Male: CVA tenderness; No nl penis, No nl scrotum, No discharge, No other Neurological: [employer] II-XII intact Results Results 24hrs Laboratory Tests Test 08/18/18 17:15 08/18/18 20:15 08/19/18 05:20 08/19/18 08:08 Bedside Glucose 123 127 116 White Blood Count 5.6 Red Blood Count 4.14 L Hemoglobin 10.9 L Hematocrit 33.9 L Mean Corpuscular Volume 81.9 L Mean Corpuscular 26.3 L Hemoglobin Mean Corpuscular 32.2 Hemoglobin Concent Red Cell Distribution 17.0 H Width Platelet Count 156 # Mean Platelet Volume 11.6 H Immature Granulocytes % 1.400 H Neutrophils % 42.9 Lymphocytes % 42.9 Monocytes % 10.8 Eosinophils % 1.8 Basophils % 0.2 Nucleated Red Blood 0.0 Cells % Immature Granulocytes # 0.080 H Neutrophils # 2.4 Lymphocytes # 2.4 Monocytes # 0.6 Eosinophils # 0.1 Basophils # 0.0 Nucleated Red Blood 0.0 Cells # Sodium Level 141 Potassium Level 3.6 Chloride Level 103 Carbon Dioxide Level 25 Anion Gap 13 Blood Urea Nitrogen 78 H Creatinine 2.39 H Est Glomerular Filtrat Rate mL/min Glucose Level 121 Calcium Level 9.1 Thyroid Stimulating 0.552 Hormone (TSH) Test 08/19/18 12:18 Bedside Glucose 216 Medications Medication Current Medications Albuterol (Ventolin Hfa) 2 puff Q4H RESP THERAPY PRN INH WHEEZING AND SOB; Start 08/13/18 at 00:00 Aspirin (Halfprin) 81 mg DAILY PO Last administered on 08/19/18 08:09; Admin Dose 81 MG; Start 08/13/18 at 09:00 Atorvastatin Calcium (Lipitor) 20 mg QHS PO Last administered on 08/18/18 20:16; Admin Dose 20 MG; Start 08/13/18 at 21:00 Carvedilol (Coreg) 25 mg BID PO Last administered on 08/19/18 08:09; Admin Dose 25 MG; Start 08/13/18 at 09:00 Hydralazine HCl (Apresoline) 50 mg Q8 PO Last administered on 08/19/18 06:05; Admin Dose 50 MG; Start 08/13/18 at 06:00 Isosorbide Mononitrate (Imdur) 60 mg DAILY PO Last administered on 08/19/18 08:09; Admin Dose 60 MG; Start 08/13/18 at 09:00 Latanoprost (Xalatan) 1 drop QHS BOTH EYES Last administered on 08/18/18 20:18; Admin Dose 1 DROP; Start 08/13/18 at 21:00 Levothyroxine Sodium (Synthroid) 75 mcg BEFORE BREAKFAST PO Last administered on 08/19/18 06:05; Admin Dose 75 MCG; Start 08/13/18 at 07:00 Ticagrelor (Brilinta) 90 mg Q12 PO Last administered on 08/19/18 08:23; Admin Dose 90 MG; Start 08/13/18 at 09:00 Acetaminophen (Tylenol Tab) 650 mg Q6H PRN PO MILD PAIN(1-3)OR ELEVATED TEMP; Start 08/13/18 at 00:00 Ondansetron HCl (Zofran Inj) 4 mg Q6H PRN IV NAUSEA AND/OR VOMITING; Start 08/13/18 at 00:00 Diagnostic Test (Pha) (Accu-Chek) 1 ea 02 XX Last administered on 08/16/18 02:30; Admin Dose 1 EA; Start 08/13/18 at 02:00 Insulin Aspart (Novolog Insulin Pen) NOVOLOG *MILD* ALGORITHM WITH MEALS BEDTIME SC Last administered on 08/19/18 12:24; Admin Dose 2 UNIT; Start 08/13/18 at 08:00 Miscellaneous Information 1 ea NOTE XX ; Start 08/13/18 at 00:30 Glucose (Glutose) 15 gm Q15M PRN PO DECREASED GLUCOSE; Start 08/13/18 at 00:30 Glucose (Glutose) 22.5 gm Q15M PRN PO DECREASED GLUCOSE; Start 08/13/18 at 00:30 Dextrose (D50w Syringe) 25 ml Q15M PRN IV DECREASED GLUCOSE; Start 08/13/18 at 00:30 Dextrose (D50w Syringe) 50 ml Q15M PRN IV DECREASED GLUCOSE; Start 08/13/18 at 00:30 Glucagon (Glucagen) 1 mg Q15M PRN IM DECREASED GLUCOSE; Start 08/13/18 at 00:30 Glucose (Glutose) 15 gm Q15M PRN BUCCAL DECREASED GLUCOSE; Start 08/13/18 at 00:30 MYRA CABRALES Aug 19, 2018 13:09
[2018-08-19] MEDS: FUROSEMIDE 20 MG TAB PO SCH (14:32)
[2018-08-19] MEDS: ATORVASTATIN 20 MG TAB PO SCH (20:40)
[2018-08-19] MEDS: LATANOPROST 0.005% 2.5 ML OPH BOTH EYES SCH (22:06)
[2018-08-20] VITALS (9 sets, daily range): BP systolic 112–129; BP diastolic 59–66; PULSE 62–73; RESP 19–20
[2018-08-20] MEDS: ACCU-CHEK XX SCH (02:00)
[2018-08-20] MEDS: LEVOTHYROXINE 75 MCG TAB PO SCH (06:43)
[2018-08-20] MEDS: INSULIN ASPART [NOVOLOG] 3 ML PEN SC SCH ×4 (07:34→21:00)
[2018-08-20] MEDS: ISOSORBIDE MONONITRATE(SR)60 MG TAB PO SCH (08:25)
[2018-08-20] MEDS: ASPIRIN (EC) 81 MG TAB PO SCH (08:25)
[2018-08-20] MEDS: FUROSEMIDE 20 MG TAB PO SCH (08:25)
[2018-08-20] MEDS: TICAGRELOR 90 MG TABLET PO SCH ×2 (08:29→22:01)
[2018-08-20] MEDS ORDERED: POTASSIUM CHLORIDE 20 MEQ POWDER FOR ORAL SOLN PO ONE (10:30)
--- NOTE | 2018-08-20 10:31 | DS ---
Date/Time of Note Date/Time of Note DATE: 08/20/18 TIME: 10:31 Discharge Summary Admission/Discharge Info Admit Date/Time Aug 12, 2018 at 21:47 Discharge Date/Time Hospital Course 1 Sob likely due to Congestive heart failure exacerbation, systolic, acute on chronic. 2. Cardiomyopathy with decreased left ventricular ejection fraction last EF approximately 30% by echo in 04/2018. 3. History of PTCA and stent placement, most recently to right coronary artery, PDA and left main in 06/2017. 4. History of transcatheter aortic valve replacement 5. Hypertension. 6. Dyslipidemia. 7 Chronic kidney disease III now likely acute injury due to diuretics/ATN CR uptrending to 2.8 8. Anemia Home Meds Active Scripts Albuterol Sulfate* (Proair HFA*) 8.5 Gm Hfa.aer.ad, 2 PUFF INH Q4H PRN for WHEEZING AND SOB, #1 INHALER Prov:MERT BENITEZ MD 05/19/18 Hydralazine Hcl* (Apresoline*) 50 Mg Tab, 50 MG PO Q8 for 30 Days, TAB Prov:MYRA CABRALES 05/19/18 Atorvastatin Calcium (Atorvastatin Calcium) 20 Mg Tablet, 20 MG PO QHS for 30 Days, TAB Prov:MYRA CABRALES 05/19/18 Reported Medications Latanoprost (Xalatan) 2.5 Ml Drops, 1 DROP BOTH EYES QHS, #1 BOTTLE 05/09/18 Nateglinide* (Nateglinide*) 60 Mg Tablet, 180 MG PO AC MEALS, TAB 05/09/18 Furosemide* (Furosemide*) 40 Mg Tablet, 40 MG PO BID, TAB 12/15/17 Levothyroxine Sodium* (Levothyroxine Sodium*) 75 Mcg Tablet, 75 MCG PO BEFORE BREAKFAST, #30 TAB 10/27/17 Sitagliptin* (Januvia*) 50 Mg Tablet, 50 MG PO DAILY, #30 TAB 07/30/17 Isosorbide Mononitrate* (Isosorbide Mononitrate*) 60 Mg Tab.er.24h, 60 MG PO DAILY, TAB 07/30/17 Carvedilol* (Carvedilol*) 25 Mg Tablet, 25 MG PO BID, #60 TAB 07/30/17 Ticagrelor* (Brilinta*) 90 Mg Tablet, 90 MG PO Q12, TAB 07/30/17 Aspirin (Low Dose Aspirin) 81 Mg Tablet.dr, 81 MG PO DAILY, #30 TAB 07/30/17 Allopurinol* (Allopurinol*) 100 Mg Tablet, 100 MG PO DAILY, TAB 07/30/17 Primary Care Provider Not On Staff Doctor Pending Labs Laboratory Tests Test 08/19/18 12:18 08/19/18 17:35 08/19/18 20:33 08/20/18 02:31 Bedside 216 118 245 132 Glucose mg/dL (70-220) mg/dL (70-220) mg/dL (70-220) mg/dL (70-220) Test 08/20/18 05:23 08/20/18 07:33 White Blood 5.4 Count 10^3/ul (4.8-10 .8) Red Blood 4.20 Count 10^6/ul (4.70-6 .10) Hemoglobin 11.1 g/dl (14.0-18.0 ) Hematocrit 34.3 % (42.0-52.0) Mean 81.7 Corpuscular fl (82.0-101.0) Volume Mean 26.4 Corpuscular pg (29.0-33.0) Hemoglobin Mean 32.4 Corpuscular g/dl (32.0-37.0 Hemoglobin Conc ) ent Red Cell 16.8 Distribution % (11.5-14.5) Width Platelet Count 156 10^3/UL (140-41 5) Mean Platelet 11.4 Volume fl (7.4-10.4) Immature 3.900 Granulocytes % % (0.001-0.429) Neutrophils % 41.1 % (39.0-77.0) Lymphocytes % 42.8 % (15.0-51.0) Monocytes % 10.3 % (0.0-11.0) Eosinophils % 1.7 % (0.0-7.0) Basophils % 0.2 % (0.0-2.0) Nucleated Red 0.0 Blood Cells % /100WBC (0.0-0. 0) Immature 0.210 Granulocytes # 10^3/ul (0.0-0. 031) Neutrophils # 2.2 10^3/ul (1.6-7. 5) Lymphocytes # 2.3 10^3/ul (0.8-2. 9) Monocytes # 0.6 10^3/ul (0.3-0. 9) Eosinophils # 0.1 10^3/ul (0.0-0. 5) Basophils # 0.0 10^3/ul (0.0-0. 1) Nucleated Red 0.0 Blood Cells # 10^3/ul (0.0-0. 0) Sodium Level 143 mmol/L (135-144 ) Potassium 3.4 Level mmol/L (3.5-5.1 ) Chloride Level 102 mmol/L (97-110) Carbon Dioxide 25 Level mmol/L (21-31) Anion Gap 16 (5-13) Blood Urea 82 mg/dl (7-20) Nitrogen Creatinine 2.24 mg/dl (0.61-1.2 4) Est Glomerular mL/min (>60) Filtrat Rate mL/min Glucose Level 115 mg/dl (70-220) Calcium Level 9.1 mg/dl (8.4-10.2 ) Bedside 129 Glucose mg/dL (70-220) MYRA CABRALES 3, 2019 10:31
--- NOTE | 2018-08-20 10:33 | PDOCDIS ---
Discharge Instructions DIAGNOSIS Discharge Diagnosis CHF exacerbation CONDITION [id number] Patient Condition: Eszzr5p Stable HOME CARE INSTRUCTIONS: [id number] Diet Instructions: Mckvl0p Modified Fat ACTIVITY: Xlknq1Ke Activity Restrictions: Dkarg1s Slowly Increase Activity Rest between Activity Avoid heavy lifting FOLLOW UP/APPOINTMENTS Follow-up Plan Dr Flores 1 week SCHOOL/WORK RELEASE May return to School/Work with: MYRA CABRALES Aug 20, 2018 10:33
--- NOTE | 2018-08-20 13:02 | CONS ---
Consult Date/Type/Reason Admit Date/Time Aug 12, 2018 at 21:47 Initial Consult Date Requesting Provider: MERT BENITEZ MD Date/Time of Note DATE: 08/20/18 TIME: 13:00 Subjective NO acute events - pt feels a little better - tolerated small dose IV lasix day prior - Cr stable - dispo planning in place ROS: No fever, no chills, no nausea, no vomiting, no diarrhea/constipation No recent weight changes No chest pain, no PND, no orthopnea - improved SOB No dizziness, blurred vision No thirst, no heat or cold intolerance Objective Vitals Vital Signs Date Temp Pulse Resp B/P (MAP) Pulse Ox O2 O2 Flow FiO2 Time Delivery Rate 08/20/18 63 12:32 08/20/18 97.7 20 112/59 96 Room Air 12:19 (76) 08/19/18 2.0 15:30 Intake and Output 08/19/18 08/19/18 08/20/18 1414:59 22:59 06:59 IntakeIntake Total 800 ml 350 ml OutputOutput Total 75 ml BalanceBalance 800 ml 275 ml Exam General: WN/WD/NAD, AOx 3 HEENT: Unicetric/atraumatic/EOMI (does commands) NECK: JVD elevated, no thyromegaly Lymph: no lymphadenopathy HEART: regular with no S3, II/ systolic murmur at apex, PMI L LUNGS: Coarse sounds ABD: soft, NT, ND, +BS : Intact Neuro: non focal SKIN: chronic changes EXT: trace edema Results/Medications Result Diagram: 08/20/18 0523 08/20/18522 Results 24 hrs Laboratory Tests Test 08/19/18 17:35 08/19/18 20:33 08/20/18 02:31 08/20/18 05:23 Bedside Glucose 118 245 H 132 White Blood Count 5.4 Red Blood Count 4.20 L Hemoglobin 11.1 L Hematocrit 34.3 L Mean Corpuscular Volume 81.7 L Mean Corpuscular 26.4 L Hemoglobin Mean Corpuscular 32.4 Hemoglobin Concent Red Cell Distribution 16.8 H Width Platelet Count 156 Mean Platelet Volume 11.4 H Immature Granulocytes % 3.900 H Neutrophils % 41.1 Lymphocytes % 42.8 Monocytes % 10.3 Eosinophils % 1.7 Basophils % 0.2 Nucleated Red Blood 0.0 Cells % Immature Granulocytes # 0.210 H Neutrophils # 2.2 Lymphocytes # 2.3 Monocytes # 0.6 Eosinophils # 0.1 Basophils # 0.0 Nucleated Red Blood 0.0 Cells # Sodium Level 143 Potassium Level 3.4 L Chloride Level 102 Carbon Dioxide Level 25 Anion Gap 16 H Blood Urea Nitrogen 82 H Creatinine 2.24 H Est Glomerular Filtrat Rate mL/min Glucose Level 115 Calcium Level 9.1 Test 08/20/18 07:33 08/20/18 12:03 Bedside Glucose 129 159 Home Meds Active Scripts Albuterol Sulfate* (Proair HFA*) 8.5 Gm Hfa.aer.ad, 2 PUFF INH Q4H PRN for WHEEZING AND SOB, #1 INHALER Prov:MERT BENITEZ MD 05/19/18 Hydralazine Hcl* (Apresoline*) 50 Mg Tab, 50 MG PO Q8 for 30 Days, TAB Prov:MYRA CABRALES 05/19/18 Atorvastatin Calcium (Atorvastatin Calcium) 20 Mg Tablet, 20 MG PO QHS for 30 Days, TAB Prov:MYRA CABRALES 05/19/18 Reported Medications Latanoprost (Xalatan) 2.5 Ml Drops, 1 DROP BOTH EYES QHS, #1 BOTTLE 05/09/18 Nateglinide* (Nateglinide*) 60 Mg Tablet, 180 MG PO AC MEALS, TAB 05/09/18 Furosemide* (Furosemide*) 40 Mg Tablet, 40 MG PO BID, TAB 12/15/17 Levothyroxine Sodium* (Levothyroxine Sodium*) 75 Mcg Tablet, 75 MCG PO BEFORE BREAKFAST, #30 TAB 10/27/17 Sitagliptin* (Januvia*) 50 Mg Tablet, 50 MG PO DAILY, #30 TAB 07/30/17 Isosorbide Mononitrate* (Isosorbide Mononitrate*) 60 Mg Tab.er.24h, 60 MG PO DAILY, TAB 07/30/17 Carvedilol* (Carvedilol*) 25 Mg Tablet, 25 MG PO BID, #60 TAB 07/30/17 Ticagrelor* (Brilinta*) 90 Mg Tablet, 90 MG PO Q12, TAB 07/30/17 Aspirin (Low Dose Aspirin) 81 Mg Tablet.dr, 81 MG PO DAILY, #30 TAB 07/30/17 Allopurinol* (Allopurinol*) 100 Mg Tablet, 100 MG PO DAILY, TAB 07/30/17 Medications Current Medications Albuterol (Ventolin Hfa) 2 puff Q4H RESP THERAPY PRN INH WHEEZING AND SOB; Start 08/13/18 at 00:00 Aspirin (Halfprin) 81 mg DAILY PO Last administered on 08/20/18 08:25; Admin Dose 81 MG; Start 08/13/18 at 09:00 Atorvastatin Calcium (Lipitor) 20 mg QHS PO Last administered on 08/19/18 20:40; Admin Dose 20 MG; Start 08/13/18 at 21:00 Carvedilol (Coreg) 25 mg BID PO Last administered on 08/20/18 08:25; Admin Dose 25 MG; Start 08/13/18 at 09:00 Hydralazine HCl (Apresoline) 50 mg Q8 PO Last administered on 08/20/18 06:43; Admin Dose 50 MG; Start 08/13/18 at 06:00 Isosorbide Mononitrate (Imdur) 60 mg DAILY PO Last administered on 08/20/18 08:25; Admin Dose 60 MG; Start 08/13/18 at 09:00 Latanoprost (Xalatan) 1 drop QHS BOTH EYES Last administered on 08/19/18 22:06; Admin Dose 1 DROP; Start 08/13/18 at 21:00 Levothyroxine Sodium (Synthroid) 75 mcg BEFORE BREAKFAST PO Last administered on 08/20/18 06:43; Admin Dose 75 MCG; Start 08/13/18 at 07:00 Ticagrelor (Brilinta) 90 mg Q12 PO Last administered on 08/20/18 08:29; Admin Dose 90 MG; Start 08/13/18 at 09:00 Acetaminophen (Tylenol Tab) 650 mg Q6H PRN PO MILD PAIN(1-3)OR ELEVATED TEMP; Start 08/13/18 at 00:00 Ondansetron HCl (Zofran Inj) 4 mg Q6H PRN IV NAUSEA AND/OR VOMITING; Start 08/13/18 at 00:00 Diagnostic Test (Pha) (Accu-Chek) XX Last administered on 2/27/19at 02:30; Admin Dose 1 EA; Start 08/13/18 at 02:00 Insulin Aspart (Novolog Insulin Pen) NOVOLOG *MILD* ALGORITHM WITH MEALS BEDTIME SC Last administered on 08/20/18at 12:09; Admin Dose 1 UNIT; Start 08/13/18 at 08:00 Miscellaneous Information 1 ea NOTE XX ; Start 08/13/18 at 00:30 Glucose (Glutose) 15 gm Q15M PRN PO DECREASED GLUCOSE; Start 08/13/18 at 00:30 Glucose (Glutose) 22.5 gm Q15M PRN PO DECREASED GLUCOSE; Start 08/13/18 at 00:30 Dextrose (D50w Syringe) 25 ml Q15M PRN IV DECREASED GLUCOSE; Start 08/13/18 at 00:30 Dextrose (D50w Syringe) 50 ml Q15M PRN IV DECREASED GLUCOSE; Start 08/13/18 at 00:30 Glucagon (Glucagen) 1 mg Q15M PRN IM DECREASED GLUCOSE; Start 08/13/18 at 00:30 Glucose (Glutose) 15 gm Q15M PRN BUCCAL DECREASED GLUCOSE; Start 08/13/18 at 00:30 Furosemide (Lasix) 20 mg DAILY PO Last administered on 08/20/18at 08:25; Admin Dose 20 MG; Start 08/19/18 at 13:30 Assessment/Plan Hospital Course (Demo Recall) 1. Congestive heart failure exacerbation, systolic, acute on chronic - better today, con't gentle diuresis - con't diuretics. Tolerated IV lasix - Cr stable now. 2. Cardiomyopathy with decreased left ventricular ejection fraction last EF kenny roximately 30% by echo in 04/2018- con;t fluid optimization. ICD in [facility]. Will check in the office. 3. History of PTCA and stent placement, most recently to right coronary artery, PDA and left main in 06/2017 - no new Sx now. 4. History of transcatheter aortic valve replacement in [facility] - stable by exam. Stable by exam. Stable. 5. Hypertension- con't to keep BP < 140/90. Treated. 6. Dyslipidemia. 7. Shortness of breath secondary to #1 - better with diuresis. 8. 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 CR on arigh side at 2.24 (but overall unchanged) DONNA MORALES MD Aug 20, 2018 13:02
--- NOTE | 2018-08-20 14:57 | PN ---
Date/Time of Note Date/Time of Note DATE: 08/20/18 TIME: 14:54 Assessment/Plan VTE Prophylaxis Risk score (from [facility] [place])>0 risk: 5 SCD applied (from [facility] [place]): No SCD contraindicated: low risk/ambulating Pharmacological prophylaxis: NA/contraindicated Pharm contraindication: anticoag not tolerated Lines/Catheters IV Catheter Type (from [facility]): Saline Lock Assessment/Plan Hospital Course 1 Sob likely due to Congestive heart failure exacerbation, systolic, acute on chronic. 2. Cardiomyopathy with decreased left ventricular ejection fraction last EF approximately 30% by echo in 04/2018. 3. History of PTCA and stent placement, most recently to right coronary artery, PDA and left main in 06/2017. 4. History of transcatheter aortic valve replacement 5. Hypertension. 6. Dyslipidemia. 7 Chronic kidney disease III now likely acute injury due to diuretics/ATN CR uptrending to 2.8 8. Anemia Assessment/Plan -cw current treatment - dc oostponned due to increased BUN -ambulate -cw gentle diuretic Result Diagram: 08/20/18 0523 08/20/1823 Results 24hrs Laboratory Tests Test 08/19/18 17:35 08/19/18 20:33 08/20/18 02:31 08/20/18 05:23 Bedside Glucose 118 245 H 132 White Blood Count 5.4 Red Blood Count 4.20 L Hemoglobin 11.1 L Hematocrit 34.3 L Mean Corpuscular Volume 81.7 L Mean Corpuscular 26.4 L Hemoglobin Mean Corpuscular 32.4 Hemoglobin Concent Red Cell Distribution 16.8 H Width Platelet Count 156 Mean Platelet Volume 11.4 H Immature Granulocytes % 3.900 H Neutrophils % 41.1 Lymphocytes % 42.8 Monocytes % 10.3 Eosinophils % 1.7 Basophils % 0.2 Nucleated Red Blood 0.0 Cells % Immature Granulocytes # 0.210 H Neutrophils # 2.2 Lymphocytes # 2.3 Monocytes # 0.6 Eosinophils # 0.1 Basophils # 0.0 Nucleated Red Blood 0.0 Cells # Sodium Level 143 Potassium Level 3.4 L Chloride Level 102 Carbon Dioxide Level 25 Anion Gap 16 H Blood Urea Nitrogen 82 H Creatinine 2.24 H Est Glomerular Filtrat Rate mL/min Glucose Level 115 Calcium Level 9.1 Test 08/20/18 07:33 08/20/18 12:03 Bedside Glucose 129 159 Subjective 24 Hr Interval Summary Respiratory: no complaints Cardiovascular: no complaints Gastrointestinal: no complaints Exam/Review of Systems Exam Vitals Vital Signs Date Temp Pulse Resp B/P (MAP) Pulse Ox O2 O2 Flow FiO2 Time Delivery Rate 08/20/18 63 12:32 08/20/18 97.7 20 112/59 96 Room Air 12:19 (76) 08/19/18 2.0 15:30 Intake and Output 08/19/18 08/19/18 08/20/18 1515:00 23:00 07:00 IntakeIntake Total 800 ml 350 ml OutputOutput Total 75 ml BalanceBalance 800 ml 275 ml Constitutional: alert, oriented Respiratory: clear to auscultation Cardiovascular: regular rate and rhythm Gastrointestinal: soft Results Results 24hrs Laboratory Tests Test 08/19/18 17:35 08/19/18 20:33 08/20/18 02:31 08/20/18 05:23 Bedside Glucose 118 245 H 132 White Blood Count 5.4 Red Blood Count 4.20 L Hemoglobin 11.1 L Hematocrit 34.3 L Mean Corpuscular Volume 81.7 L Mean Corpuscular 26.4 L Hemoglobin Mean Corpuscular 32.4 Hemoglobin Concent Red Cell Distribution 16.8 H Width Platelet Count 156 Mean Platelet Volume 11.4 H Immature Granulocytes % 3.900 H Neutrophils % 41.1 Lymphocytes % 42.8 Monocytes % 10.3 Eosinophils % 1.7 Basophils % 0.2 Nucleated Red Blood 0.0 Cells % Immature Granulocytes # 0.210 H Neutrophils # 2.2 Lymphocytes # 2.3 Monocytes # 0.6 Eosinophils # 0.1 Basophils # 0.0 Nucleated Red Blood 0.0 Cells # Sodium Level 143 Potassium Level 3.4 L Chloride Level 102 Carbon Dioxide Level 25 Anion Gap 16 H Blood Urea Nitrogen 82 H Creatinine 2.24 H Est Glomerular Filtrat Rate mL/min Glucose Level 115 Calcium Level 9.1 Test 08/20/18 07:33 08/20/18 12:03 Bedside Glucose 129 159 Medications Medication Current Medications Albuterol (Ventolin Hfa) 2 puff Q4H RESP THERAPY PRN INH WHEEZING AND SOB; Start 08/13/18 at 00:00 Aspirin (Halfprin) 81 mg DAILY PO Last administered on 08/20/18at 08:25; Admin Dose 81 MG; Start 08/13/18 at 09:00 Atorvastatin Calcium (Lipitor) 20 mg QHS PO Last administered on 08/19/18 20:40; Admin Dose 20 MG; Start 08/13/18 at 21:00 Carvedilol (Coreg) 25 mg BID PO Last administered on 08/20/18 08:25; Admin Dose 25 MG; Start 08/13/18 at 09:00 Hydralazine HCl (Apresoline) 50 mg Q8 PO Last administered on 08/20/18 06:43; Admin Dose 50 MG; Start 08/13/18 at 06:00 Isosorbide Mononitrate (Imdur) 60 mg DAILY PO Last administered on 08/20/18 08:25; Admin Dose 60 MG; Start 08/13/18 at 09:00 Latanoprost (Xalatan) 1 drop QHS BOTH EYES Last administered on 08/19/18 22:06; Admin Dose 1 DROP; Start 08/13/18 at 21:00 Levothyroxine Sodium (Synthroid) 75 mcg BEFORE BREAKFAST PO Last administered on 08/20/18 06:43; Admin Dose 75 MCG; Start 08/13/18 at 07:00 Ticagrelor (Brilinta) 90 mg Q12 PO Last administered on 08/20/18 08:29; Admin Dose 90 MG; Start 08/13/18 at 09:00 Acetaminophen (Tylenol Tab) 650 mg Q6H PRN PO MILD PAIN(1-3)OR ELEVATED TEMP; Start 08/13/18 at 00:00 Ondansetron HCl (Zofran Inj) 4 mg Q6H PRN IV NAUSEA AND/OR VOMITING; Start 08/13/18 at 00:00 Diagnostic Test (Pha) (Accu-Chek) 1 ea 02 XX Last administered on 08/16/18 02: 30; Admin Dose 1 EA; Start 08/13/18 at 02:00 Insulin Aspart (Novolog Insulin Pen) NOVOLOG *MILD* ALGORITHM WITH MEALS BEDTIME SC Last administered on 08/20/18 12:09; Admin Dose 1 UNIT; Start 08/13/18 at 08:00 Miscellaneous Information 1 ea NOTE XX ; Start 08/13/18 at 00:30 Glucose (Glutose) 15 gm Q15M PRN PO DECREASED GLUCOSE; Start 08/13/18 at 00:30 Glucose (Glutose) 22.5 gm Q15M PRN PO DECREASED GLUCOSE; Start 08/13/18 at 00:30 Dextrose (D50w Syringe) 25 ml Q15M PRN IV DECREASED GLUCOSE; Start 08/13/18 at 00:30 Dextrose (D50w Syringe) 50 ml Q15M PRN IV DECREASED GLUCOSE; Start 08/13/18 at 00:30 Glucagon (Glucagen) 1 mg Q15M PRN IM DECREASED GLUCOSE; Start 08/13/18 at 00:30 Glucose (Glutose) 15 gm Q15M PRN BUCCAL DECREASED GLUCOSE; Start 08/13/18 at 00:30 Furosemide (Lasix) 20 mg DAILY PO Last administered on 08/20/18at 08:25; Admin Dose 20 MG; Start 08/19/18 at 13:30 MYRA CABRALES Aug 20, 2018 14:57
[2018-08-20] MEDS ORDERED: SOD CHLORIDE 0.9% 1,000 ML IV SCH (17:00)
[2018-08-20] MEDS: LATANOPROST 0.005% 2.5 ML OPH BOTH EYES SCH (21:52)
[2018-08-20] MEDS: ATORVASTATIN 20 MG TAB PO SCH (21:52)
[2018-08-21] VITALS (8 sets, daily range): BP systolic 115–123; BP diastolic 59–67; PULSE 62–69; RESP 20
[2018-08-21] MEDS: ACCU-CHEK XX SCH (02:00)
[2018-08-21] MEDS: LEVOTHYROXINE 75 MCG TAB PO SCH (06:49)
[2018-08-21] MEDS: INSULIN ASPART [NOVOLOG] 3 ML PEN SC SCH ×2 (07:36→11:10)
[2018-08-21] MEDS: ISOSORBIDE MONONITRATE(SR)60 MG TAB PO SCH (08:54)
[2018-08-21] MEDS: FUROSEMIDE 20 MG TAB PO SCH (08:54)
[2018-08-21] MEDS: ASPIRIN (EC) 81 MG TAB PO SCH (08:54)
[2018-08-21] MEDS: TICAGRELOR 90 MG TABLET PO SCH (08:59)
--- NOTE | 2018-08-21 11:29 | CONS ---
Assessment/Plan Cardiology NYHA: III Heart Failure Type: Acute on Chronic Heart Failure Type: Systolic Assessment/Plan Hospital Course (Demo Recall) IMPRESSION: 1. Congestive heart failure exacerbation, systolic, acute on chronic. 2. Cardiomyopathy with decreased left ventricular ejection fraction last EF approximately 30% by echo in 04/2018. 3. History of PTCA and stent placement, most recently to right coronary artery, PDA and left main in 06/2017. 4. History of transcatheter aortic valve replacement in [facility]. 5. Hypertension. 6. Dyslipidemia. 7. Shortness of breath secondary to #1- mow improved volume status 8. 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 -OK for d/c from cardiac standpoint Consultation Date/Type/Reason Admit Date/Time Aug 12, 2018 at 21:47 Initial Consult Date 08/13/18 Type of Consult Cardiology Reason for Consultation CHF Requesting Provider: MERT BENITEZ MD Date/Time of Note DATE: 08/21/18 TIME: 11:26 Exam/Review of Systems Vital Signs Vitals Vital Signs Date Temp Pulse Resp B/P (MAP) Pulse Ox O2 O2 Flow FiO2 Time Delivery Rate 08/21/18 98.1 62 20 116/59 97 11:22 (78) 08/20/18 Room Air 16:07 08/19/18 2.0 15:30 Intake and Output 08/20/18 08/20/18 08/21/18 1515:00 23:00 07:00 IntakeIntake Total 800 ml 250 ml OutputOutput Total 500 ml BalanceBalance 800 ml -250 ml Exam Exam Review of Systems: CONSTITUTIONAL: No fevers, chills. PULMONARY: No sob CARDIOVASCULAR: No chest pain/palpitations GASTROINTESTINAL: No nausea/vomiting. GENITOURINARY: No hematuria/dysuria. MUSCULOSKELETAL: No myagias/arthalgias. PSYCHIATRIC: The patient denies depression. NEUROLOGIC: No weakness Constitutional: alert, oriented Psych: no complaints Head: normocephalic ENMT: mucosa pink and moist Neck: supple, jvd (9 cm water) Respiratory: clear to auscultation Cardiovascular: regular rate and rhythm Gastrointestinal: soft, non-tender Musculoskeletal: muscle tone (normal) Extremities: edema (none) Neurological: other (NO focal deficits) Labs Result Diagram: 08/21/187 08/21/187 Results 24hrs Laboratory Tests Test 08/20/18 12:03 08/20/18 17:23 08/20/18 21:49 08/21/18 04:47 Bedside Glucose 159 176 162 White Blood Count 5.1 Red Blood Count 4.10 L Hemoglobin 10.9 L Hematocrit 33.7 L Mean Corpuscular Volume 82.2 Mean Corpuscular 26.6 L Hemoglobin Mean Corpuscular 32.3 Hemoglobin Concent Red Cell Distribution 16.5 H Width Platelet Count 158 Mean Platelet Volume 11.3 H Immature Granulocytes % 0.800 H Neutrophils % 46.9 Lymphocytes % 42.5 Monocytes % 7.8 Eosinophils % 1.8 Basophils % 0.2 Nucleated Red Blood 0.0 Cells % Immature Granulocytes # 0.040 H Neutrophils # 2.4 Lymphocytes # 2.2 Monocytes # 0.4 Eosinophils # 0.1 Basophils # 0.0 Nucleated Red Blood 0.0 Cells # Sodium Level 143 Potassium Level 3.4 L Chloride Level 103 Carbon Dioxide Level 25 Anion Gap 15 H Blood Urea Nitrogen 75 H Creatinine 2.20 H Est Glomerular Filtrat Rate mL/min Glucose Level 118 Calcium Level 9.2 Test 08/21/18 07:35 08/21/18 11:09 Bedside Glucose 125 140 Medications Medications Current Medications Albuterol (Ventolin Hfa) 2 puff Q4H RESP THERAPY PRN INH WHEEZING AND SOB; Start 08/13/18 at 00:00 Aspirin (Halfprin) 81 mg DAILY PO Last administered on 08/21/18at 08:54; Admin Dose 81 MG; Start 08/13/18 at 09:00 Atorvastatin Calcium (Lipitor) 20 mg QHS PO Last administered on 08/20/18at 21:52; Admin Dose 20 MG; Start 08/13/18 at 21:00 Carvedilol (Coreg) 25 mg BID PO Last administered on 08/21/18at 08:55; Admin Dose 25 MG; Start 08/13/18 at 09:00 Hydralazine HCl (Apresoline) 50 mg Q8 PO Last administered on 08/21/18at 06:50; Admin Dose 50 MG; Start 08/13/18 at 06:00 Isosorbide Mononitrate (Imdur) 60 mg DAILY PO Last administered on 08/21/18 08:54; Admin Dose 60 MG; Start 08/13/18 at 09:00 Latanoprost (Xalatan) 1 drop QHS BOTH EYES Last administered on 08/20/18 21:52; Admin Dose 1 DROP; Start 08/13/18 at 21:00 Levothyroxine Sodium (Synthroid) 75 mcg BEFORE BREAKFAST PO Last administered on 08/21/18 06:49; Admin Dose 75 MCG; Start 08/13/18 at 07:00 Ticagrelor (Brilinta) 90 mg Q12 PO Last administered on 08/21/18 08:59; Admin Dose 90 MG; Start 08/13/18 at 09:00 Acetaminophen (Tylenol Tab) 650 mg Q6H PRN PO MILD PAIN(1-3)OR ELEVATED TEMP; Start 08/13/18 at 00:00 Ondansetron HCl (Zofran Inj) 4 mg Q6H PRN IV NAUSEA AND/OR VOMITING; Start 08/13/18 at 00:00 Diagnostic Test (Pha) (Accu-Chek) 1 ea 02 XX Last administered on 08/16/18at 02:30; Admin Dose 1 EA; Start 08/13/18 at 02:00 Insulin Aspart (Novolog Insulin Pen) NOVOLOG *MILD* ALGORITHM WITH MEALS BEDTIME SC Last administered on 08/20/18at 17:27; Admin Dose 1 UNIT; Start 08/13/18 at 08:00 Miscellaneous Information 1 ea NOTE XX ; Start 08/13/18 at 00:30 Glucose (Glutose) 15 gm Q15M PRN PO DECREASED GLUCOSE; Start 08/13/18 at 00:30 Glucose (Glutose) 22.5 gm Q15M PRN PO DECREASED GLUCOSE; Start 08/13/18 at 00 :30 Dextrose (D50w Syringe) 25 ml Q15M PRN IV DECREASED GLUCOSE; Start 08/13/18 at 00:30 Dextrose (D50w Syringe) 50 ml Q15M PRN IV DECREASED GLUCOSE; Start 08/13/18 at 00:30 Glucagon (Glucagen) 1 mg Q15M PRN IM DECREASED GLUCOSE; Start 08/13/18 at 00:30 Glucose (Glutose) 15 gm Q15M PRN BUCCAL DECREASED GLUCOSE; Start 08/13/18 at 00:30 Furosemide (Lasix) 20 mg DAILY PO Last administered on 08/21/18at 08:54; Admin Dose 20 MG; Start 08/19/18 at 13:30 Sodium Chloride 1,000 ml @ 40 mls/hr Q24H IV Last administered on 08/20/18at 17:47; Admin Dose 40 MLS/HR; Start 08/20/18 at 17:00; Stop 08/21/18 at 17:59 ELEANOR ROLDAN Aug 21, 2018 11:29
[2018-08-21] MEDS ORDERED: POTASSIUM CHLORIDE (SR) 20 MEQ TAB PO STA (15:48)
--- NOTE | 2018-08-21 16:29 | PDOCDIS ---
Discharge Instructions DIAGNOSIS Discharge Diagnosis CHF exacerbation KEN on CKD improving CONDITION [id number] Patient Condition: Mwlst4k Fair HOME CARE INSTRUCTIONS: [id number] Diet Instructions: Elahg1d Modified Fat ACTIVITY: [id number] Activity Restrictions: [id number] Slowly Increase Activity Rest between Activity Avoid heavy lifting FOLLOW UP/APPOINTMENTS Follow-up Plan Dr Flores [address] Pederson in 1 week with lab check change lasix to 40 mg x1 week then dr pederson will adjust SCHOOL/WORK RELEASE May return to School/Work with: MERT PEDERSON MD Aug 21, 2018 16:29
[2018-08-21] MEDS ORDERED: FURO40TA4 PO (16:30)
--- NOTE | 2018-08-22 12:18 | DS ---
DATE OF ADMISSION: 08/12/2018 DATE OF DISCHARGE: 08/21/2018 HISTORY OF PRESENT ILLNESS AND HOSPITAL COURSE: An 83-year-old male with a past medical history of, acute, systolic, acute on chronic cardiomyopathy, EF of 30%, history of percutaneous transluminal cor onary angioplasty, stent placement, dyslipidemia, diabetes, hypertension, CKD stage III, hypothyroidi sm and anemia, presented to the emergency department complaining of shortness of breath and chest noah n. On admission, vital signs showed blood pressure 162/84, hematocrit 32.9, BUN of 32, creatinine 1. 90. EKG showed left bundle branch pattern. The patient was admitted to telemetry unit. The patient had initial chest x-ray that showed borderline congestive heart failure. The patient was seen by ca rdiology consultation with Dr. Flores and recommendations were followed. The patient was started on Lasix and also started on metolazone. The patient was diuresing well, feeling much better. However , during the course of time, the creatinine peaked up to 2.80. BUN went up to 82. The patient's diu retics were held. The patient was instead given little fluids. ____, the patient's condition was im proving. The patient was also evaluated for possible oxygen requirements; however, did not qualify a s an ABG showed pO2 of 76. The patient was walking in the hallway without any need of oxygen. Lung exam had improved. Creatinine trended down to 2.20, BUN came down to 75. Currently, per Dr. Flores stable to be discharged home on Lasix 40. FINAL DISCHARGE DIAGNOSES: 1. Congestive heart failure, systolic, acute on chronic. 2. Cardiomyopathy with decreased LVEF 35% by echo in 04/2018. 3. History of percutaneous transluminal coronary angioplasty stent placement recently to coronary ar renard, PDA and left main 06/2017. 4. History of transcatheter aortic valve replacement [facility]. 5. Hypertension. 6. Dyslipidemia. 7. Shortness of breath secondary to #1. 8. Acute on chronic kidney disease, improved with statin likely secondary to cardiorenal/diuretics, improved on hold decreasing the diuresis. DISCHARGE CONDITION: Stable. DISCHARGE DIET: Two-gram sodium. DISCHARGE MEDICATIONS: 1. Lasix was reduced from 40 mg b.i.d. to 40 daily. The patient will be seen in my office next week , and on Tuesday with labs prior. 2. Continue albuterol, allopurinol 100, aspirin 81, atorvastatin 20, Coreg 25 b.i.d., hydralazine 50 q.8, Imdur 60, latanoprost, levothyroxine 75, nateglinide 180, Januvia 50, Brilinta 90 q.12. The patient was instructed to return to the ER if your chest pain, shortness of breath. Dictated By: MERT JOHNSTON/ELIZABETH Conf#: [id number] DID#: [id number] CC: KIARA RING MD;*EndCC*
== END 2018-08-21 19:03 | disposition home or self-care (01) | DRG 291 ==
LOC: E/R 18:29 → 6WM 21:47
PROVIDERS: ADMIT Internal Medicine Nephrology; ATTEND Internal Medicine Nephrology
DX: I13.0 Hypertensive heart and chronic kidney disease with heart failure and stage 1 through stage 4 chronic kidney disease, or unspecified chronic kidney disease (principal); I50.23 Acute on chronic systolic (congestive) heart failure; N17.0 Acute kidney failure with tubular necrosis; Z95.5 Presence of coronary angioplasty implant and graft; I42.9 Cardiomyopathy, unspecified; Z95.810 Presence of automatic (implantable) cardiac defibrillator; Z95.2 Presence of prosthetic heart valve; E78.5 Hyperlipidemia, unspecified; I25.2 Old myocardial infarction; N18.3 Chronic kidney disease, stage 3 (moderate)
CPT/HCPCS: 36415; 36600; 71045; 80048; 80053; 80061; 82803; 82962; 83735; 83880; 84100; 84443; 84484; 85025; 87081; 93005; 96374; J1815; J1940; J2405; J7030

== ENCOUNTER 2018-09-11 08:50 | Inpatient (IN) | payer MEDICARE, OTHER ==
[~2018-09-11] VITALS: Ht 162.6 cm; Wt 68.0 kg
[2018-09-11] MEDS ORDERED: FUROSEMIDE 40 MG INJ IV STA (09:25)
--- NOTE | 2018-09-11 11:14 | ERD ---
ER Documentation Chief Complaint Chief Complaint SOB x 1 day hx CHF HPI 83-year-old male history of diabetes, hypertension, hyperlipidemia, coronary artery disease status post PCI, CKD, ischemic cardiomyopathy with ejection fraction of 25% status post AICD and multiple prior admissions for congestive heart failure most recently discharged 08/21/2018 presents the ED complaining of a one-week history of increasing shortness of breath, orthopnea and exertional dyspnea which has become severe since yesterday. Denies chest pain or palpitations. No abdominal pain, nausea or vomiting. Chronic, nonproductive cough but no URI symptoms odynophagia, rhinorrhea or body aches. Chronic, mildly worsening lower extremity swelling but no calf pain or redness. No fevers or chills. ROS All systems reviewed and are negative except as per history of present illness. Medications Home Meds Active Scripts Furosemide* (Furosemide*) 40 Mg Tablet, 40 MG PO DAILY for 30 Days, TAB Prov:MERT BENITEZ MD 08/21/18 Albuterol Sulfate* (Proair HFA*) 8.5 Gm Hfa.aer.ad, 2 PUFF INH Q4H PRN for WHEEZING AND SOB, #1 INHALER Prov:MERT BENITEZ MD 05/19/18 Hydralazine Hcl* (Apresoline*) 50 Mg Tab, 50 MG PO Q8 for 30 Days, TAB Prov:MYRA CABRALES 05/19/18 Atorvastatin Calcium (Atorvastatin Calcium) 20 Mg Tablet, 20 MG PO QHS for 30 Days, TAB Prov:MYRA CABRALES 05/19/18 Reported Medications Latanoprost (Xalatan) 2.5 Ml Drops, 1 DROP BOTH EYES QHS, #1 BOTTLE 05/09/18 Nateglinide* (Nateglinide*) 60 Mg Tablet, 180 MG PO AC MEALS, TAB 05/09/18 Levothyroxine Sodium* (Levothyroxine Sodium*) 75 Mcg Tablet, 75 MCG PO BEFORE BREAKFAST, #30 TAB 10/27/17 Sitagliptin* (Januvia*) 50 Mg Tablet, 50 MG PO DAILY, #30 TAB 07/30/17 Isosorbide Mononitrate* (Isosorbide Mononitrate*) 60 Mg Tab.er.24h, 60 MG PO DAILY, TAB 07/30/17 Carvedilol* (Carvedilol*) 25 Mg Tablet, 25 MG PO BID, #60 TAB 07/30/17 Ticagrelor* (Brilinta*) 90 Mg Tablet, 90 MG PO Q12, TAB 07/30/17 Aspirin (Low Dose Aspirin) 81 Mg Tablet.dr, 81 MG PO DAILY, #30 TAB 07/30/17 Allopurinol* (Allopurinol*) 100 Mg Tablet, 100 MG PO DAILY, TAB 07/30/17 Allergies Allergies: Coded Allergies: No Known Allergies (Verified Allergy, Unknown, 08/14/18) PMhx/Soc History of Surgery: Yes (STENTS;PACEMAKER/AICD;HEART VALVE REPLACEMENT;) Anesthesia Reaction: No Hx Neurological Disorder: No Hx Respiratory Disorders: No Hx Cardiac Disorders: Yes (CHF;HTN;CARDIOMYOPATHY;MS;) Hx Psychiatric Problems: No Hx Miscellaneous Medical Probl: No Hx Alcohol Use: No Hx Substance Use: No Hx Tobacco Use: No Smoking Status: Former smoker FmHx No early coronary artery disease or cancer. Physical Exam Vitals Temperature: 97.7. Pulse: 88. Respirations: 20. Blood pressure 151/71. O2 saturation 98% on 2 L by nasal cannula. Physical Exam Const: Alert, anxious, moderate respiratory distress. Head: Atraumatic Eyes: Normal Conjunctiva ENT: Normal External Ears, Nose and Mouth. Neck: Full range of motion. No meningismus. JVD. Resp: Decreased breath sounds bilaterally with crackles at the bases. Cardio: Regular rate and rhythm, no murmurs Chest Wall: Cardiac rhythm device left chest wall. No tenderness. Abd: Soft, non tender, non distended. No rebound or guarding. Normal bowel sounds Skin: No petechiae or rashes Back: No midline or flank tenderness Ext: 1+ pretibial edema. No calf swelling or tenderness. Neur: Awake and alert Psych: Anxious but not depressed. Result Diagram: 09/19/1862909/19/18629 Results 24 hrs Laboratory Tests Test 09/11/18 09:21 White Blood Count 7.7 10^3/ul Red Blood Count 3.53 10^6/ul Hemoglobin 9.3 g/dl Hematocrit 29.4 % Mean Corpuscular Volume 83.3 fl Mean Corpuscular Hemoglobin 26.3 pg Mean Corpuscular Hemoglobin Concent 31.6 g/dl Red Cell Distribution Width 16.8 % Platelet Count 154 10^3/UL Mean Platelet Volume 10.5 fl Immature Granulocytes % 2.200 % Neutrophils % 75.0 % Lymphocytes % 16.4 % Monocytes % 5.5 % Eosinophils % 0.8 % Basophils % 0.1 % Nucleated Red Blood Cells % 0.0 /100WBC Immature Granulocytes # 0.170 10^3/ul Neutrophils # 5.8 10^3/ul Lymphocytes # 1.3 10^3/ul Monocytes # 0.4 10^3/ul Eosinophils # 0.1 10^3/ul Basophils # 0.0 10^3/ul Nucleated Red Blood Cells # 0.0 10^3/ul Sodium Level 144 mmol/L Potassium Level 3.5 mmol/L Chloride Level 110 mmol/L Carbon Dioxide Level 21 mmol/L Anion Gap 13 Blood Urea Nitrogen 28 mg/dl Creatinine 1.68 mg/dl Est Glomerular Filtrat Rate mL/min mL/min Glucose Level 178 mg/dl Calcium Level 9.1 mg/dl Total Bilirubin 0.7 mg/dl Direct Bilirubin 0.00 mg/dl Indirect Bilirubin 0.7 mg/dl Aspartate Amino Transf (AST/SGOT) 31 IU/L Alanine Aminotransferase (ALT/SGPT) 25 IU/L Alkaline Phosphatase 99 IU/L Troponin I 0.021 ng/ml B-Type Natriuretic Peptide 04175 PG/ML Total Protein 7.8 g/dl Albumin 4.1 g/dl Globulin 3.70 g/dl Albumin/Globulin Ratio 1.10 Current Medications Medications Dose Sig/Leanna Start Time Status Last (Trade) Ordered Route PRN Stop Time Admin Dose Reason Admin Furosemide 40 mg ONCE STAT 09/11/18 DC 09/11/18 (Lasix) IV 09:25 09:31 09/11/18 09:27 Procedures/MDM DOCUMENTS REVIEWED: ED nurse, prior ED, prior records EKG: Time: 937. Sinus rhythm. Left bundle branch block. Ventricular rate 79. Normal OR interval. No ectopy. No Sgarbossa here for ischemia. My Interpretation IMAGING: PROCEDURE: XR Chest. TECHNIQUE: Single frontal radiograph. CLINICAL INDICATION: SOB COMPARISON: SD DX CHEST 06/28/2017; SD DX CHEST 06/27/2017; SD DX CHEST 06/26/2017; SD CR CHEST 06/24/2017; CR CHEST 08/10/2016; SD CR CHEST 07/25/2016. FINDINGS: Left-sided AICD with unipolar lead unchanged in position. The generator overlies the lateral chest wall, obscuring underlying potential findings. There is increase in vascular congestion with increased prominence of the central vasculature and increased interstitial lung markings more peripherally. Low lung volumes. Streaky bibasilar linear densities may be secondary to combination of atelectasis and increased interstitial edema. Trace pleural effusions with blunting of the costophrenic angle bilaterally. No evidence of pneumothorax. Cardiac silhouette appears mild to moderately enlarged. Status post aortic stent situated in the central cardiac silhouette. Coarse atherosclerotic calcification of the aortic arch with mild tortuosity of the descending aorta. No acute osseous abnormality identified within the visualized thorax. Overlying soft tissues are equally unremarkable. IMPRESSION: Status post left-sided unipolar AICD. Status post aortic stent. Mild to moderate cardiomegaly with atherosclerotic calcification of the aortic arch. Increased central vascular congestion. Increase in perihilar interstitial densities, likely secondary to interstitial edema. Trace pleural effusions. Bibasilar streaky linear densities, likely representing combination of atelectasis and edema. RPTAT: EE Physician Rk Hernandez Date Time Electronically viewed and signed by Chanda Wilkerson Physician on 09/11/2018 10:25 rP/ CRITICAL CARE TIME: Due to the high probability of imminent, clinically sig nificant respiratory, hemodynamic and cardiovascular deterioration, this patient with shortness of breath and respiratory distress kenzie to acute congestive heart failure required multiple, frequent reevaluations of vital signs and response to therapy. Additional critical care time was spent in interpretation of relevant clinical data including labs and imaging studies as well as arranging for ongoi ng care and admission with Dr. Benitez. TOTAL CRITICAL CARE TIME: 35 minutes not including other separately reportable procedures. MEDICAL DECISION MAKIN-year-old male history of diabetes, hypertension, hyperlipidemia, coronary artery disease status post PCI, CKD, ischemic cardiomyopathy with ejection fraction of 25% status post AICD and multiple prior admissions for congestive heart failure most recently discharged 08/21/2018 presents the ED complaining of a one-week history of increasing shortness of breath, orthopnea and exertional dyspnea which has become severe since yesterday. CBC to evaluate for anemia, leukocytosis and thrombocytopenia reveals anemia consistent with prior results. Chemistry significant for elevated BUN/creatinine consistent with history of chronic kidney disease but no acute electrolyte abnormalities or hyperkalemia. BNP is markedly elevated at 10,100 consistent with congestive heart failure. Troponin is 0.021. EKG reveals left bundle branch block unchanged from prior but no ischemic changes or ectopy. Chest x-ray consistent with congestive heart failure but no evidence of pneumonia or pneumothorax. Patient presents with symptoms consistent with acute exacerbation of chronic congestive heart failure treated improved with intravenous diuretics and supplemental oxygen. No fever or signs of an occult infectious process including pneumonia. Pulmonary embolism is unlikely. Admit to telemetry for further evaluation and management. CALLS/CONSULTS: Time: 11:16, Dr. Prakash. PATIENT CARE TRANSITIONED: Time: 11:27, Dr. Benitez. Counseled patient and family regarding diagnosis, diagnostic results and plan for admission. Departure Diagnosis: Primary Impression: Acute dyspnea Additional Impressions: Acute on chronic systolic (congestive) heart failure Ischemic cardiomyopathy Chronic kidney disease Chronic kidney disease stage: unspecified stage Qualified Codes: N18.9 - Chronic kidney disease, unspecified Anemia Anemia type: unspecified type Qualified Codes: D64.9 - Anemia, unspecified Diabetes mellitus type 2 in nonobese Condition: Serious LUCIA PAULINO MD Sep 11, 2018 11:14
[2018-09-11] MEDS ORDERED: ACETAMINOPHEN 325 MG TAB PO PRN (12:00)
[2018-09-11] MEDS ORDERED: ONDANSETRON 4 MG INJ IV PRN (12:00)
[2018-09-11] MEDS ORDERED: DOCUSATE SODIUM 100 MG CAP PO PRN (15:00)
[2018-09-11] MEDS ORDERED: HYDROCODONE/APAP (5/325) TAB PO PRN (15:00)
[2018-09-11] MEDS ORDERED: NACL 0.9% 3 ML SYG IV SCH (15:00)
--- NOTE | 2018-09-11 15:02 | QN ---
Documentation Comment seen and examined MERT BENITEZ MD Sep 11, 2018 15:02
[2018-09-11 16:00] VITALS: BP 146/73; PULSE 71; RESP 16
--- NOTE | 2018-09-11 16:09 | HP ---
DATE OF ADMISSION: 09/11/2018 REASON FOR ADMISSION: Shortness of breath. HISTORY OF PRESENTING ILLNESS: This is an 83-year-old male with past medical history of diabetes, hy pertension, CHF systolic acute on chronic, cardiomyopathy, EF of 30%, history of percutaneous angiopl asty, dyslipidemia, hypothyroidism, who has had multiple admissions in the past secondary to CHF exac erbation recently admitted in 08/12/2018 secondary to CHF. The patient was at that time started on L asix, metolazone. He had complicated course exacerbated by KEN on CKD; however was discharged on 10/2018. Lasix at that time was reduced from 40 mg b.i.d. to 40 daily. The patient was seen in o ffice last week where the patient was having some mild exertional shortness of breath. Lasix was inc reased to 40 b.i.d., but according to the family and the patient, he felt really short of breath last night, could not breathe which made him come to the emergency department. The patient denied any co ugh. Denied any fevers or chills. On arrival to ED, he had temperature of 99.7, blood pressure 134/ 73, white count 7.7, hemoglobin 9.3, platelet count 154, BUN of 28, creatinine 1.68, BNP 10,100. Clarisse st x-ray showed status post AICD, increased central vascular congestion, perihilar interstitial densi ties secondary to interstitial edema, bibasilar linear density, combination of atelectasis and edema and the patient was given IV Lasix 40 and was admitted for further management. PAST MEDICAL HISTORY: 1. Congestive heart failure, systolic, acute on chronic. 2. Cardiomyopathy with decreased EF 35% by echo in 04/2018. 3. History of percutaneous transluminal coronary angioplasty, recently stent placement to PDA and le ft main in 06/2017. 4. History of transcatheter aortic valve replacement in [facility]. 5. Hypertension. 6. Dyslipidemia. 7. Obesity. 8. CKD stage III. ALLERGIES: Negative. FAMILY HISTORY: Negative. SOCIAL HISTORY: Ex-smoker. MEDICATIONS: The patient on home were: 1. Lasix 40 b.i.d. 2. Albuterol. 3. Brilinta 90 q.12. 4. Atorvastatin 20. 5. Coreg 25 b.i.d. 6. Hydralazine 50 q.8. 7. Imdur 60. 8. Aspirin 81. 9. Latanoprost. 10. Levothyroxine 75. 11. Nateglinide. 12. Januvia. 13. Allopurinol 100. REVIEW OF SYSTEMS: The patient complains of some shortness of breath since last night present for th e past few days. Denies any cough. Denies any fevers. Denies any abdominal pain, nausea, vomiting, diarrhea. Denies any orthopnea, PND, any lower extremity edema. Denies any headache, any blurry vi darian. Denies any hematemesis, any melena, any bright blood per rectum. PHYSICAL EXAMINATION: VITAL SIGNS: Currently blood pressure 134/73 at presentation, temperature 99.7, pulse 70, respiratio ns 17, saturating 100%. GENERAL: The patient is awake, alert, oriented, does not appear to in any acute distress. HEENT: Pupils are equal, round, react to light. NECK: Supple. No JVD. HEART: Regular rate and rhythm. LUNGS: Some decreased breath sounds bilaterally. ABDOMEN: Soft, nontender, nondistended, positive normoactive bowel sounds. The patient is obese. EXTREMITIES: Trace edema. LABORATORY DATA: BUN of 28, creatinine 1.68. Troponin is 0.021. BNP 10,100. White count of 7.7, h emoglobin 9.3, platelet count 154. DIAGNOSTIC DATA: Chest x-ray shows increased central vascular congestion, likely secondary to inters titial edema. ASSESSMENT AND PLAN: This is an 83-year-old male who presented with: 1. Shortness of breath likely secondary to congestive heart failure exacerbation, acute on chronic. However, the patient also had low-grade fevers. We cannot rule out underlying pneumonia. 2. History of acute on chronic congestive heart failure. 3. Chronic kidney disease stage III. 4. Elevated BNP due to congestive heart failure. 5. Diabetes. 6. Hypertension. 7. Hyperlipidemia. 8. 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 9. History of transaortic valve replacement. PLAN: At this period of time, the patient will be admitted to telemetry. The patient will be starte d on IV Lasix, fluid restriction. We will check an ABG. The patient will be also on DuoNeb. We cayden l also send for respiratory culture. The patient will be on antibiotics. Cardiology consultation hu s been obtained. We will also get a CT of the chest. Rest of the treatment will depend on the patie nt's hospitalization course. Dictated By: MERT JOHNSTON/ELIZABETH Conf#: [id number] DID#: [id number] CC: ELEANOR ROLDAN MD;*EndCC*
[2018-09-11 16:17] VITALS: Ht 162.6 cm; Wt 68.0 kg
[2018-09-11] MEDS: CEFTRIAXONE 1 GM/50 ML (PMX) 50 ML IVPB SCH (16:49)
[2018-09-11] MEDS: ACCU-CHEK XX SCH ×2 (17:04→20:21)
[2018-09-11] MEDS: ALBUTEROL/IPRATROPIUM (NEB) 3 ML AMP HHN SCH ×2 (17:07→21:16)
[2018-09-11] MEDS: FUROSEMIDE 40 MG INJ IV SCH (18:17)
[2018-09-11] MEDS: NATEGLINIDE 60 MG TAB PO SCH (18:17)
[2018-09-11] MEDS: AZITHROMYCIN 500 MG in SOD CHLORIDE 0.9% 250 ML IVPB SCH (18:29)
[2018-09-11 20:00] VITALS: PULSE 81
[2018-09-11] MEDS: LATANOPROST 0.005% 2.5 ML OPH BOTH EYES SCH (20:12)
[2018-09-11] MEDS: ATORVASTATIN 20 MG TAB PO SCH (20:12)
[2018-09-11 20:13] VITALS: BP 142/67; PULSE 77; RESP 17
[2018-09-11] MEDS: TICAGRELOR 90 MG TABLET PO SCH (20:16)
--- NOTE | 2018-09-11 20:50 | CONS ---
DATE OF ADMISSION: 09/11/2018 DATE OF CONSULTATION: 09/11/2018 TYPE OF CONSULTATION: Cardiology. REASON FOR CONSULTATION: Congestive heart failure exacerbation. REQUESTING PHYSICIAN: Elizabet Pederson MD HISTORY OF PRESENT ILLNESS: Mr. Adams is an 83-year-old male with history of cardiomyopathy, decre ased left ventricular ejection fraction, last only approximately 30% by echo in 04/2018, PTCA and stacey nt placement, most recently in right coronary artery, PDA and left main in 06/2017, congestive heart failure systolic, acute on chronic, hypertension, dyslipidemia, transcatheter aortic valve replacemen t in 2018, chronic kidney disease not on hemodialysis, who presents with worsening shortness of breat h and found to have congestive heart failure exacerbation. Upon arrival, temperature of 99.7, blood pressure 159/71, pulse 88, respiratory rate 20, satting 98%. The patient's labs were notable for whi te blood cell count of 7.7, hemoglobin 9.3, platelet count 154, sodium 144, potassium 3.5, creatinine 0.68, BUN 28, troponin negative, BNP of 10,100. The patient's chest x-ray revealed increased centra l vascular congestion, increased perihilar interstitial densities, trace pleural effusions. The mary ent's electrocardiogram revealed normal sinus rhythm, rate of 79, left bundle branch block, secondary repolarization abnormalities. The patient has been admitted to the floor and since admit to the [facility] or, continues to have shortness of breath and symptoms consistent with orthopnea. Denies chest pain. PAST MEDICAL HISTORY: As above in HPI. MEDICATIONS CURRENTLY IN HOSPITAL: 1. Aspirin 81 mg daily. 2. Imdur 60 mg daily. 3. Synthroid 75 mcg daily. 4. Protonix 40 mg daily. 5. Hydralazine 50 mg p.o. q.8. 6. Lipitor 20 mg at bedtime. 7. Carvedilol 25 mg p.o. b.i.d. 8. Xalatan eyedrops. 9. Brilinta 90 mg q.12. 10. Lasix 40 mg IV b.i.d. 11. Starlix. 12. Ceftriaxone. 13. Azithromycin. 14. Tylenol. ALLERGIES: NO KNOWN DRUG ALLERGIES. SOCIAL HISTORY: No current tobacco, EtOH or illicit drug use. FAMILY HISTORY: No history of sudden cardiac or early CAD. REVIEW OF SYSTEMS: As above in HPI. CONSTITUTIONAL: No fevers, chills. PULMONARY: Positive shortness of breath. CARDIOVASCULAR: Congestive heart failure. GASTROINTESTINAL: No vomiting. GENITOURINARY: Renal failure. PSYCHIATRIC: No documented psych history. NEUROLOGIC: No documented history of CVA. ENDOCRINE: Hypothyroidism. PHYSICAL EXAMINATION: VITAL SIGNS: Temperature of 98.4, blood pressure most recently 146/73, pulse 71, respiratory rate 16 , satting 99%. GENERAL: The patient is alert, awake, in no acute distress. NECK: JVP is approximately 9 to 10 cm of water. CHEST: Bibasilar crackles. HEART: Regular rate and rhythm. Normal S1, S2. Laterally displaced PMI. ABDOMEN: Positive bowel sounds, soft. EXTREMITIES: No significant pitting edema, 1+ pulses bilateral posterior tibial. LABORATORY DATA: Most recently from today. No further labs for my review at this time. IMAGING STUDIES: As above in HPI. No further imaging studies for my review at this time. ELECTROCARDIOGRAM: As above in HPI. No further electrocardiograms for my review at this time. IMPRESSION: 1. Congestive heart failure exacerbation, systolic, acute on chronic. 2. Cardiomyopathy with decreased left ventricular ejection fraction, last known to be approximately 30% by echo in 04/2018. 3. History of PTCA and stent placement, most recently to right coronary artery and left main in 06/21 018. 4. History of transcatheter aortic valve replacement or TAVR in 10/2017. 5. Hypertension. 6. Dyslipidemia. 7. Chronic kidney disease, not on hemodialysis. 8. Shortness of breath secondary to #1. RECOMMENDATIONS: 1. At this time, we would maintain the patient on telemetry monitoring to follow rhythm and rate jose cruz sely. 2. We would continue the patient's antihypertensives at this time with Imdur, hydralazine and carved ilol with up titration as necessary to improve overall systolic blood pressure control. 3. Continue the patient's aspirin and Brilinta for stent patency. 4. Continue the patient's Lasix diuresis and we will give the patient a dose of metolazone to increa se diuresis. 5. Follow the patient's blood sugar closely. 6. Continue the patient's statin and adjust it according to a fasting lipid to be checked. 7. We will additionally consider reassess patient's ejection fraction with 2D echo and the patient d oes rule out for myocardial infarction and we will consider further evaluation of the patient's stent s with a possible stress test. Thank you for allowing me to take part in the care of this patient. I will continue to follow him ve ry closely with you with further recommendations to be made as the [facility]. Dictated By: ELEANOR ABREU/ELIZABETH Conf#: [id number] DID#: [id number] CC: ELIZABET PEDERSON;*EndCC*
[2018-09-12] VITALS (11 sets, daily range): BP systolic 103–144; BP diastolic 52–72; PULSE 69–82; RESP 16–18
[2018-09-12] MEDS: ALBUTEROL/IPRATROPIUM (NEB) 3 ML AMP HHN SCH ×6 (01:23→21:46)
[2018-09-12] MEDS: METOLAZONE 2.5 MG TAB PO SCH (05:53)
[2018-09-12] MEDS: PANTOPRAZOLE (EC) 40 MG TAB PO SCH (06:35)
[2018-09-12] MEDS: FUROSEMIDE 40 MG INJ IV SCH ×2 (06:35→17:20)
[2018-09-12] MEDS: LEVOTHYROXINE 75 MCG TAB PO SCH (06:36)
[2018-09-12] MEDS: NATEGLINIDE 60 MG TAB PO SCH ×3 (07:25→17:46)
[2018-09-12] MEDS: ACCU-CHEK XX SCH ×4 (07:25→21:00)
[2018-09-12] MEDS: ALLOPURINOL 100 MG TAB PO SCH (08:36)
[2018-09-12] MEDS: CEFTRIAXONE 1 GM/50 ML (PMX) 50 ML IVPB SCH (08:36)
[2018-09-12] MEDS: ASPIRIN (EC) 81 MG TAB PO SCH (08:36)
[2018-09-12] MEDS: ISOSORBIDE MONONITRATE(SR)60 MG TAB PO SCH (08:37)
[2018-09-12] MEDS: TICAGRELOR 90 MG TABLET PO SCH ×2 (08:48→21:58)
[2018-09-12] MEDS ORDERED: POTASSIUM CHLORIDE (SR) 20 MEQ TAB PO STA (12:55)
--- NOTE | 2018-09-12 13:03 | PN ---
Date/Time of Note Date/Time of Note DATE: 09/12/18 TIME: 12:59 Assessment/Plan VTE Prophylaxis Risk score (from Ns)>0 risk: 4 SCD applied (from [facility] [place]): Yes Pharmacological prophylaxis: NA/contraindicated Pharm contraindication: low risk/ambulating Lines/Catheters IV Catheter Type (from [facility]): [place] Urinary Cath still in place: No Assessment/Plan Assessment/Plan 83-year-old male who presented with: 1. Shortness of breath likely secondary to congestive heart failure exacerbation, acute on chronic. However, the patient also had low-grade fevers. We cannot rule out underlying pneumonia. CT of the chest shows Numerous nodular consolidative opacities throughout both lungs. These probably represent a multifocal pneumonia, possibly atypical, however other entities such as septic emboli or metastatic disease cannot be excluded. 2. History of acute on chronic congestive heart failure. 3. Chronic kidney disease stage III. 4. Elevated BNP due to congestive heart failure. 5. Diabetes. 6. Hypertension. 7. Hyperlipidemia. 8. 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 9. History of transaortic valve replacement. Plan -Pulmonary consult -ID consult -Continue with Rocephin/azithromycin, send sputum cultures -Echo pending -We will also check for some tumor markers -? Qualification for oxygen at home -Continue with Lasix 40 IV twice daily/metolazone -Monitor kidney function -cw With aspirin/Brilinta/Coreg/Lipitor Result Diagram: 09/12/18 0747 09/12/18 0747 Results 24hrs Laboratory Tests Test 09/11/18 15:00 09/11/18 15:58 09/11/18 17:03 09/11/18 20:21 Blood Gas Blood arterial Specimen Source Arterial Blood 09/11/2018 5:03:0 Date Drawn 0 PM Arterial Blood pH 7.446 (Temp corrected) Arterial Blood 33.4 L pCO2 (Temp correct) Arterial Blood 89.5 pO2 (Temp corrected) Arterial Blood 22.5 HCO3 Arterial Blood -1.0 Base Excess Arterial Blood 96.6 Oxygen Saturation Conrad Test ACCEPTAB Arterial Blood Right Radial Gas Puncture Site Arterial 0.3 Blood Carboxyhemo globin Arterial Blood 0.3 Methemoglobin Blood Gas A-a O2 20.2 Differential Oxyhemoglobin 96.0 Percent Blood Gas 37.0 Temperature Blood Gas ROOM AIR Modality FiO2 21.0 Blood Gas TD Notified Whom Blood Gas 09/11/2018 5:20:0 Notified Time 0 PM Creatine Kinase 34 Creatine Kinase 1.4 Index Creatinine Kinase 0.49 MB (Mass) Troponin I 0.021 Bedside Glucose 156 142 Test 09/11/18 21:13 09/12/18 07:47 09/12/18 08:35 09/12/18 11:45 Creatine Kinase 42 Creatine Kinase 1.1 Index Creatinine Kinase 0.45 MB (Mass) Troponin I 0.015 White Blood Count 6.0 # Red Blood Count 3.40 L Hemoglobin 9.0 L Hematocrit 27.9 L Mean Corpuscular 82.1 Volume Mean Corpuscular 26.5 L Hemoglobin Mean Corpuscular 32.3 Hemoglobin Concen t Red Cell 16.7 H Distribution Width Platelet Count 163 Mean Platelet 10.7 H Volume Immature 1.200 H Granulocytes % Neutrophils % 60.4 Lymphocytes % 29.8 Monocytes % 6.7 Eosinophils % 1.7 Basophils % 0.2 Nucleated Red 0.0 Blood Cells % Immature 0.070 H Granulocytes # Neutrophils # 3.6 Lymphocytes # 1.8 Monocytes # 0.4 Eosinophils # 0.1 Basophils # 0.0 Nucleated Red 0.0 Blood Cells # Sodium Level 146 H Potassium Level 3.2 L Chloride Level 106 Carbon Dioxide 25 Level Anion Gap 15 H Blood Urea 27 H Nitrogen Creatinine 1.67 H Est Glomerular Filtrat Rate mL/min Glucose Level 119 # Hemoglobin A1c 6.7 H Calcium Level 9.1 Phosphorus Level 3.8 Magnesium Level 2.1 Bedside Glucose 150 181 Subjective 24 Hr Interval Summary Free Text/Dictation Feels short of breath. -1.9 L Exam/Review of Systems Exam Vitals Vital Signs Date Temp Pulse Resp B/P (MAP) Pulse Ox O2 O2 Flow FiO2 Time Delivery Rate 09/12/18 76 20 99 28 12:31 09/12/18 98.8 121/65 11:40 (83) 09/12/18 2.0 09:31 09/12/18 Nasal 08:20 Cannula Intake and Output 09/11/18 09/11/18 09/12/18 1515:00 23:00 07:00 IntakeIntake Total 550 ml 200 ml OutputOutput Total 900 ml 800 ml 1000 ml BalanceBalance -900 ml -250 ml -800 ml Exam GENERAL: The patient is awake, alert, oriented, does not appear to in any acute distress. HEENT: Pupils are equal, round, react to light. NECK: Supple. No JVD. HEART: Regular rate and rhythm. LUNGS: Some decreased breath sounds bilaterally. ABDOMEN: Soft, nontender, nondistended, positive normoactive bowel sounds. The patient is obese. EXTREMITIES: Trace edema. Results Results 24hrs Laboratory Tests Test 09/11/18 15:00 09/11/18 15:58 09/11/18 17:03 09/11/18 20:21 Blood Gas Blood arterial Specimen Source Arterial Blood 09/11/2018 5:03:0 Date Drawn 0 PM Arterial Blood pH 7.446 (Temp corrected) Arterial Blood 33.4 L pCO2 (Temp correct) Arterial Blood 89.5 pO2 (Temp corrected) Arterial Blood 22.5 HCO3 Arterial Blood -1.0 Base Excess Arterial Blood 96.6 Oxygen Saturation Conrad Test ACCEPTAB Arterial Blood Right Radial Gas Puncture Site Arterial 0.3 Blood Carboxyhemo globin Arterial Blood 0.3 Methemoglobin Blood Gas A-a O2 20.2 Differential Oxyhemoglobin 96.0 Percent Blood Gas 37.0 Temperature Blood Gas ROOM AIR Modality FiO2 21.0 Blood Gas TD Notified Whom Blood Gas 09/11/2018 5:20:0 Notified Time 0 PM Creatine Kinase 34 Creatine Kinase 1.4 Index Creatinine Kinase 0.49 MB (Mass) Troponin I 0.021 Bedside Glucose 156 142 Test 09/11/18 21:13 09/12/18 07:47 09/12/18 08:35 09/12/18 11:45 Creatine Kinase 42 Creatine Kinase 1.1 Index Creatinine Kinase 0.45 MB (Mass) Troponin I 0.015 White Blood Count 6.0 # Red Blood Count 3.40 L Hemoglobin 9.0 L Hematocrit 27.9 L Mean Corpuscular 82.1 Volume Mean Corpuscular 26.5 L Hemoglobin Mean Corpuscular 32.3 Hemoglobin Concen t Red Cell 16.7 H Distribution Width Platelet Count 163 Mean Platelet 10.7 H Volume Immature 1.200 H Granulocytes % Neutrophils % 60.4 Lymphocytes % 29.8 Monocytes % 6.7 Eosinophils % 1.7 Basophils % 0.2 Nucleated Red 0.0 Blood Cells % Immature 0.070 H Granulocytes # Neutrophils # 3.6 Lymphocytes # 1.8 Monocytes # 0.4 Eosinophils # 0.1 Basophils # 0.0 Nucleated Red 0.0 Blood Cells # Sodium Level 146 H Potassium Level 3.2 L Chloride Level 106 Carbon Dioxide 25 Level Anion Gap 15 H Blood Urea 27 H Nitrogen Creatinine 1.67 H Est Glomerular Filtrat Rate mL/min Glucose Level 119 # Hemoglobin A1c 6.7 H Calcium Level 9.1 Phosphorus Level 3.8 Magnesium Level 2.1 Bedside Glucose 150 181 Medications Medication Current Medications IV Flush (NS 3 ml) 3 ml PER PROTOCOL IV ; Start 09/11/18 at 15:00 Ondansetron HCl (Zofran Inj) 4 mg Q6H PRN IV NAUSEA/VOMITING; Start 09/11/18 at 15:00 Acetaminophen (Tylenol Tab) 650 mg Q6H PRN PO .PAIN 1-3 OR TEMP; Start 09/11/18 at 15:00 Acetaminophen/ Hydrocodone Bitart ([place] (5/325)) 1 tab Q6H PRN PO .MOD PAIN 4- 6; Start 09/11/18 at 15:00 Docusate Sodium (Colace) 100 mg Q12H PRN PO .CONSTIPATION; Start 09/11/18 at 15:00 Pantoprazole (Protonix Tab) 40 mg DAILY@06 PO Last administered on 09/12/18at 06:35; Admin Dose 40 MG; Start 09/12/18 at 06:00 Allopurinol (Zyloprim) 100 mg DAILY PO Last administered on 09/12/18at 08:36; Admin Dose 100 MG; Start 09/12/18 at 09:00 Aspirin (Halfprin) 81 mg DAILY PO Last administered on 09/12/18at 08:36; Admin Dose 81 MG; Start 09/12/18 at 09:00 Atorvastatin Calcium (Lipitor) 20 mg QHS PO Last administered on 09/11/18at 20:12; Admin Dose 20 MG; Start 09/11/18 at 21:00 Carvedilol (Coreg) 25 mg BID PO Last administered on 09/12/18at 08:37; Admin Dose 25 MG; Start 09/11/18 at 21:00 Hydralazine HCl (Apresoline) 50 mg Q8 PO Last administered on 09/12/18at 06:36; Admin Dose 50 MG; Start 09/11/18 at 22:00 Isosorbide Mononitrate (Imdur) 60 mg DAILY PO Last administered on 09/12/18 08:37; Admin Dose 60 MG; Start 09/12/18 at 09:00 Latanoprost (Xalatan) 1 drop QHS BOTH EYES Last administered on 09/11/18 20 :12; Admin Dose 1 DROP; Start 09/11/18 at 21:00 Levothyroxine Sodium (Synthroid) 75 mcg BEFORE BREAKFAST PO Last administered on 09/12/18 06:36; Admin Dose 75 MCG; Start 09/12/18 at 07:00 Nateglinide (Starlix) 180 mg AC MEALS PO Last administered on 09/12/18 11:46; Admin Dose 180 MG; Start 09/11/18 at 17:25 Ticagrelor (Brilinta) 90 mg Q12 PO Last administered on 09/12/18 08:48; Admin Dose 90 MG; Start 09/11/18 at 21:00 Diagnostic Test (Pha) (Accu-Chek) 1 ea AC MEALS AND BEDTIME XX Last administered on 09/12/18 11:46; Admin Dose 1 EA; Start 09/11/18 at 17:25 Furosemide (Lasix) 40 mg BID DIURETICS IV Last administered on 09/12/18 06:35; Admin Dose 40 MG; Start 09/11/18 at 18:00 Ceftriaxone Sodium 50 ml @ 100 mls/hr DAILY IVPB Last administered on 09/12/18 08:36; Admin Dose 100 MLS/HR; Start 09/11/18 at 15:30 Azithromycin 500 mg/Sodium Chloride 250 ml @ 250 mls/hr Q24H IVPB Last administered on 09/11/18 18:29; Admin Dose 250 MLS/HR; Start 09/11/18 at 17:00 Albuterol/ Ipratropium (Duoneb) 3 ml Q4H RESP THERAPY HHN Last administered on 09/12/18 12:26; Admin Dose 3 ML; Start 09/11/18 at 17:00 Metolazone (Zaroxolyn) 2.5 mg DAILY PO Last administered on 09/12/18 05:53; Admin Dose 2.5 MG; Start 09/12/18 at 05:30 MERT BENITEZ MD Sep 12, 2018 13:03
--- NOTE | 2018-09-12 13:13 | CONS ---
DATE OF ADMISSION: 09/12/2018 DATE OF CONSULTATION: 09/12/2018 REASON FOR CONSULTATION: Shortness of breath. Thank you, Dr. Pederson, for this consultation. HISTORY OF PRESENT ILLNESS: This is an 83-year-old gentleman seen by myself previously in the office , who presents to [facility] with increasing congestion, shortness of breath, found to have multiple pulmonary nodules on chest CT. The patient states he has had worsening shortness o f breath over the past few weeks. Denies any fever, chills, chest pain, palpitations, orthopnea or P ND. PAST MEDICAL HISTORY: Cardiomyopathy with decreased ejection fraction, congestive cardiac failure, t ranscatheter aortic valve replacement at [facility], chronic kidney disease and essential hypertension. MEDICATIONS: Per chart. ALLERGIES: NONE. SOCIAL HISTORY: He is an ex-smoker, no alcohol, no history of drug use. FAMILY HISTORY: Noncontributory. SYSTEMS REVIEW: A 12-point review of systems was negative other than that mentioned above. PHYSICAL EXAMINATION: GENERAL: Well-nourished, well-developed gentleman, comfortable at rest, no acute distress. VITAL SIGNS: Currently afebrile, pulse is 98, temperature 98, pulse 76, blood pressure 121/65, O2 sa turation 96% on 2 L nasal cannula. NECK: Supple. No JVD or lymphadenopathy. CARDIAC: S1, S2, no added sounds or murmurs. CHEST: Diminished air entry bilaterally. ABDOMEN: Soft, nontender. No guarding or rebound. EXTREMITIES: No cyanosis, clubbing. NEUROLOGIC: Cranial nerves II through XII. Generalized weakness. No focal deficits. LABORATORY DATA: White count 6.0, hemoglobin 9, platelets of 163. BUN 27, creatinine 1.67. DIAGNOSTIC STUDIES: 1. Chest CT demonstrates numerous nodular opacities throughout both lung choudhary, small pleural effus ions. IMPRESSION: 1. Multiple pulmonary nodules concerning for possible underlying malignant process. 2. History of renal insufficiency. 3. Anemia, likely of chronic disease. PLAN: 1. Continue supplemental O2. 2. Broad-spectrum antibiotics. 3. I will review prior office notes and compare to previous CTs. Dictated By: YOABNY PALUMBO MD SV/ELIZABETH Conf#: [id number] DID#: [id number] CC: MERT PEDERSON;*EndCC*
--- NOTE | 2018-09-12 14:34 | CONS ---
Consult Date/Type/Reason Admit Date/Time Sep 12, 2018 at 09:28 Initial Consult Date Date/Time of Note DATE: 09/12/18 TIME: 14:32 Subjective NO acute events - pt comfortable - con't gentle diuresis. ROS: No fever, no chills, no nausea, no vomiting, no diarrhea/constipation No recent weight changes No chest pain, no PND, no orthopnea - improved SOB No dizziness, blurred vision No thirst, no heat or cold intolerance Objective Vitals Vital Signs Date Temp Pulse Resp B/P (MAP) Pulse Ox O2 O2 Flow FiO2 Time Delivery Rate 09/12/18 76 20 99 28 12:31 09/12/18 98.8 121/65 11:40 (83) 09/12/18 2.0 09:31 09/12/18 Nasal 08:20 Cannula Intake and Output 09/11/18 09/11/18 09/12/18 1515:00 23:00 07:00 IntakeIntake Total 550 ml 200 ml OutputOutput Total 900 ml 800 ml 1000 ml BalanceBalance -900 ml -250 ml -800 ml Exam General: WN/WD/NAD, AOx 3 HEENT: Unicetric/atraumatic/EOMI (follow commands) NECK: JVD elevated, no thyromegaly Lymph: no lymphadenopathy HEART: regular with no S3, II/ systolic murmur at apex LUNGS: Coarse sounds ABD: soft, NT, ND, +BS : Intact Neuro: non focal SKIN: chronic changes EXT: trace edema Results/Medications Result Diagram: 09/12/18 0747 09/12/18 0747 Results 24 hrs Laboratory Tests Test 09/11/18 15:00 09/11/18 15:58 09/11/18 17:03 09/11/18 20:21 Blood Gas Blood arterial Specimen Source Arterial Blood 09/11/2018 5:03:0 Date Drawn 0 PM Arterial Blood pH 7.446 (Temp corrected) Arterial Blood 33.4 L pCO2 (Temp correct) Arterial Blood 89.5 pO2 (Temp corrected) Arterial Blood 22.5 HCO3 Arterial Blood -1.0 Base Excess Arterial Blood 96.6 Oxygen Saturation Conrad Test ACCEPTAB Arterial Blood Right Radial Gas Puncture Site Arterial 0.3 Blood Carboxyhemo globin Arterial Blood 0.3 Methemoglobin Blood Gas A-a O2 20.2 Differential Oxyhemoglobin 96.0 Percent Blood Gas 37.0 Temperature Blood Gas ROOM AIR Modality FiO2 21.0 Blood Gas TD Notified Whom Blood Gas 09/11/2018 5:20:0 Notified Time 0 PM Creatine Kinase 34 Creatine Kinase 1.4 Index Creatinine Kinase 0.49 MB (Mass) Troponin I 0.021 Bedside Glucose 156 142 Test 09/11/18 21:13 09/12/18 07:47 09/12/18 08:35 09/12/18 11:45 Creatine Kinase 42 Creatine Kinase 1.1 Index Creatinine Kinase 0.45 MB (Mass) Troponin I 0.015 White Blood Count 6.0 # Red Blood Count 3.40 L Hemoglobin 9.0 L Hematocrit 27.9 L Mean Corpuscular 82.1 Volume Mean Corpuscular 26.5 L Hemoglobin Mean Corpuscular 32.3 Hemoglobin Concen t Red Cell 16.7 H Distribution Width Platelet Count 163 Mean Platelet 10.7 H Volume Immature 1.200 H Granulocytes % Neutrophils % 60.4 Lymphocytes % 29.8 Monocytes % 6.7 Eosinophils % 1.7 Basophils % 0.2 Nucleated Red 0.0 Blood Cells % Immature 0.070 H Granulocytes # Neutrophils # 3.6 Lymphocytes # 1.8 Monocytes # 0.4 Eosinophils # 0.1 Basophils # 0.0 Nucleated Red 0.0 Blood Cells # Sodium Level 146 H Potassium Level 3.2 L Chloride Level 106 Carbon Dioxide 25 Level Anion Gap 15 H Blood Urea 27 H Nitrogen Creatinine 1.67 H Est Glomerular Filtrat Rate mL/min Glucose Level 119 # Hemoglobin A1c 6.7 H Calcium Level 9.1 Phosphorus Level 3.8 Magnesium Level 2.1 Bedside Glucose 150 181 Home Meds Active Scripts Furosemide* (Furosemide*) 40 Mg Tablet, 40 MG PO DAILY for 30 Days, TAB Prov:MERT BENITEZ MD 08/21/18 Albuterol Sulfate* (Proair HFA*) 8.5 Gm Hfa.aer.ad, 2 PUFF INH Q4H PRN for WHEEZING AND SOB, #1 INHALER Prov:MERT BENITEZ MD 05/19/18 Hydralazine Hcl* (Apresoline*) 50 Mg Tab, 50 MG PO Q8 for 30 Days, TAB Prov:MEZENTSMYRA DEAN 05/19/18 Atorvastatin Calcium (Atorvastatin Calcium) 20 Mg Tablet, 20 MG PO QHS for 30 Days, TAB Prov:MEZENTSEVA,MYRA 05/19/18 Reported Medications Latanoprost (Xalatan) 2.5 Ml Drops, 1 DROP BOTH EYES QHS, #1 BOTTLE 05/09/18 Nateglinide* (Nateglinide*) 60 Mg Tablet, 180 MG PO AC MEALS, TAB 05/09/18 Levothyroxine Sodium* (Levothyroxine Sodium*) 75 Mcg Tablet, 75 MCG PO BEFORE BREAKFAST, #30 TAB 10/27/17 Sitagliptin* (Januvia*) 50 Mg Tablet, 50 MG PO DAILY, #30 TAB 07/30/17 Isosorbide Mononitrate* (Isosorbide Mononitrate*) 60 Mg Tab.er.24h, 60 MG PO DAILY, TAB 07/30/17 Carvedilol* (Carvedilol*) 25 Mg Tablet, 25 MG PO BID, #60 TAB 07/30/17 Ticagrelor* (Brilinta*) 90 Mg Tablet, 90 MG PO Q12, TAB 07/30/17 Aspirin (Low Dose Aspirin) 81 Mg Tablet.dr, 81 MG PO DAILY, #30 TAB 07/30/17 Allopurinol* (Allopurinol*) 100 Mg Tablet, 100 MG PO DAILY, TAB 07/30/17 Medications Current Medications IV Flush (NS 3 ml) 3 ml PER PROTOCOL IV ; Start 09/11/18 at 15:00 Ondansetron HCl (Zofran Inj) 4 mg Q6H PRN IV NAUSEA/VOMITING; Start 09/11/18 at 15:00 Acetaminophen (Tylenol Tab) 650 mg Q6H PRN PO .PAIN 1-3 OR TEMP; Start 09/11/18 at 15:00 Acetaminophen/ Hydrocodone Bitart ([place] (5/325)) 1 tab Q6H PRN PO .MOD PAIN 4- 6; Start 09/11/18 at 15:00 Docusate Sodium (Colace) 100 mg Q12H PRN PO .CONSTIPATION; Start 09/11/18 at 15:00 Pantoprazole (Protonix Tab) 40 mg DAILY@06 PO Last administered on 09/12/18at 06:35; Admin Dose 40 MG; Start 09/12/18 at 06:00 Allopurinol (Zyloprim) 100 mg DAILY PO Last administered on 09/12/18 08:36; A dmin Dose 100 MG; Start 09/12/18 at 09:00 Aspirin (Halfprin) 81 mg DAILY PO Last administered on 09/12/18 08:36; Admin Dose 81 MG; Start 09/12/18 at 09:00 Atorvastatin Calcium (Lipitor) 20 mg QHS PO Last administered on 09/11/18 20:12; Admin Dose 20 MG; Start 09/11/18 at 21:00 Carvedilol (Coreg) 25 mg BID PO Last administered on 09/12/18 08:37; Admin Dose 25 MG; Start 09/11/18 at 21:00 Hydralazine HCl (Apresoline) 50 mg Q8 PO Last administered on 09/12/18 14:25; Admin Dose 50 MG; Start 09/11/18 at 22:00 Isosorbide Mononitrate (Imdur) 60 mg DAILY PO Last administered on 09/12/18 08:37; Admin Dose 60 MG; Start 09/12/18 at 09:00 Latanoprost (Xalatan) 1 drop QHS BOTH EYES Last administered on 09/11/18 20:12; Admin Dose 1 DROP; Start 09/11/18 at 21:00 Levothyroxine Sodium (Synthroid) 75 mcg BEFORE BREAKFAST PO Last administered on 09/12/18 06:36; Admin Dose 75 MCG; Start 09/12/18 at 07:00 Nateglinide (Starlix) 180 mg AC MEALS PO Last administered on 09/12/18 11:46; Admin Dose 180 MG; Start 09/11/18 at 17:25 Ticagrelor (Brilinta) 90 mg Q12 PO Last administered on 09/12/18 08:48; Admin Dose 90 MG; Start 09/11/18 at 21:00 Diagnostic Test (Pha) (Accu-Chek) 1 ea AC MEALS AND BEDTIME XX Last administered on 09/12/18 11:46; Admin Dose 1 EA; Start 09/11/18 at 17:25 Furosemide (Lasix) 40 mg BID DIURETICS IV Last administered on 09/12/18 06:35; Admin Dose 40 MG; Start 09/11/18 at 18:00 Ceftriaxone Sodium 50 ml @ 100 mls/hr DAILY IVPB Last administered on 3/26/19a t 08:36; Admin Dose 100 MLS/HR; Start 09/11/18 at 15:30 Azithromycin 500 mg/Sodium Chloride 250 ml @ 250 mls/hr Q24H IVPB Last administered on 09/11/18at 18:29; Admin Dose 250 MLS/HR; Start 09/11/18 at 17:00 Albuterol/ Ipratropium (Duoneb) 3 ml Q4H RESP THERAPY HHN Last administered on 09/12/18at 12:26; Admin Dose 3 ML; Start 09/11/18 at 17:00 Metolazone (Zaroxolyn) 2.5 mg DAILY PO Last administered on 09/12/18at 05:53; Admin Dose 2.5 MG; Start 09/12/18 at 05:30 Assessment/Plan Hospital Course (Demo Recall) 1. Congestive heart failure exacerbation, systolic, acute on chronic - con't gentle diuresis. 2. Cardiomyopathy with decreased left ventricular ejection fraction, last known to be approximately 30% by echo in 04/2018. Con't gentle diuresis. 3. History of PTCA and stent placement, most recently to right coronary artery and left main in 06/2017. NO CP now - r/o KS. 4. History of transcatheter aortic valve replacement or TAVR in 10/2017 - with good fxn by exam. 5. Hypertension - reasonably controlled. 6. Dyslipidemia. 7. Chronic kidney disease, not on hemodialysis - Cr 1.67 stable 8. Shortness of breath secondary to #1- better now DONNA MORALES MD Sep 12, 2018 14:34
--- NOTE | 2018-09-12 16:54 | RADRPT ---
Echocardiogram Report Patient Name: SINA GEORGEPatient ID: [id number] : 1935 (83y 7m)Study Date: 09/12/2018 7:47:15 AM Gender: MAccession #: [id number] Tech: Tomasz Pepe [facility] Location: [facility] Ref.Physician: MERT BENITEZ Height(Cm): BSA: Weight(Kg): Quality: AdequateAccount #: Procedures: Echocardiographic Report: Transthoracic echocardiogram with complete 2D, M-Mode, and doppler examination. Indications: Evaluate Left Ventricular function. Measurements: 2D/M Mode Doppler Measurement Value Normal Range Measurement Value Normal Range LVIDd 2D 5.0 [ 4.2 - 5.8 ] cm MELANY VTI 1.8 [ 2.0 - 4.0 ] cm2 LVIDs 2D 4.6 [ 2.5 - 4.0 ] cm AV Mean Wong 1.5 [ 70.0 - 90.0 ] cm/sec LVPWd 2D 1.0 [ 0.6 - 1.0 ] cm AV Mean PG 11.0 [ 2.0 - 4.0 ] mmHg IVSd 2D 0.9 [ 0.6 - 1.0 ] cm AV VTI 47.8 cm AoR Diam 2D 2.4 [ 2.6 - 3.4 ] cm LVOT Mean Wong 0.9 [ 60.0 - 80.0 ] cm/sec EDV 2D 119.0 [ 62.0 - 150.0 ] ml LVOT Mean PG 4.0 [ 1.0 - 3.0 ] mmHg ESV 2D 97.3 [ 21.0 - 61.0 ] ml LVOT Peak Wong 1.3 [ 70.0 - 110.0 ] cm/sec EF 2D 18.2 [ 52.0 - 72.0 ] percent LVOT Peak PG 7.0 [ 2.0 - 6.0 ] mmHg LA Dimen 2D 4.3 [ 3.0 - 4.0 ] cm LVOT VTI 27.0 [ 20.0 - 30.0 ] cm LVOT Diam 2.0 [ 2.3 - 2.9 ] cm MV E Peak Wong 0.9 [ 60.0 - 130.0 ] cm/sec MV A Peak Wong 0.7 [ 100.0 - 120.0 ] cm/sec MV E/A 1.4 [ 0.8 - 1.5 ] ratio MV Decel Time 222 [ 104 - 258 ] msec Lat E` Wong 0.1 [ 10.0 - 15.0 ] cm/sec Lateral E/E` 16.8 [ 1.0 - 2.0 ] ratio MV E/A 1.4 [ 0.8 - 1.5 ] ratio TR Peak Wong 2.1 [ 100.0 - 280.0 ] cm/sec TR Peak PG 18.0 mmHg RVSP 21.0 [ 10.0 - 36.0 ] mmHg RA Pressure 3.0 mmHg Findings: Left Ventricle: Normal left ventricular cavity size. Normal left ventricular wall thickness. Severe global left ventricular systolic dysfunction. Ejection fraction is visually estimated at 25 %. There is global hypokinesis involving all segments of the left ventricle. Right Ventricle: Normal right ventricular size. Normal right ventricular systolic function. Linear artifact in right ventricle suggestive of catheter, pacer lead, or ICD lead. Left Atrium: There is mild enlargement of left atrium. Right Atrium: The right atrium is normal in size. Mitral Valve: Mitral valve leaflets appear mildly thickened. Mild mitral annular calcification. Mild mitral valve regurgitation. Aortic Valve: Aortic Valve Bio Prosthesis. Aortic valve Max velocity 2.35 m/sec. Max PG 22.00 mmHg. Mean PG 11.00 mmHg. No aortic regurgitation. Tricuspid Valve: Normal appearance and function of the tricuspid valve with trace physiologic regurgitation. Normal right ventricular systolic pressure. Estimated peak PA systolic pressure 21 mmHg. Pulmonic Valve: Normal pulmonic valve appearance. Pericardium: Normal pericardium with no significant pericardial effusion. Aorta: Normal aortic root. IVC: Normal size and normal respiratory collapse consistent with normal right atrial pressure. Conclusions: Normal left ventricular cavity size. Normal left ventricular wall thickness. Severe global left ventricular systolic dysfunction. Ejection fraction is visually estimated at 25 %. There is global hypokinesis involving all segments of the left ventricle. There is mild enlargement of left atrium. Mitral valve leaflets appear mildly thickened. Mild mitral annular calcification. Mild mitral valve regurgitation. Aortic Valve Bio Prosthesis. Aortic valve Max velocity 2.35 m/sec. Max PG 22.00 mmHg. Mean PG 11.00 mmHg. No aortic regurgitation. Normal appearance and function of the tricuspid valve with trace physiologic regurgitation. Normal right ventricular systolic pressure. Estimated peak PA systolic pressure 21 mmHg. Electronically Signed By: Baron Flores 2018-09-12 16:53:35 PDT
[2018-09-12] MEDS: AZITHROMYCIN 500 MG in SOD CHLORIDE 0.9% 250 ML IVPB SCH (17:20)
--- NOTE | 2018-09-12 17:28 | CONS ---
DATE OF ADMISSION: 09/12/2018 DATE OF CONSULTATION: 09/12/2018 TYPE OF CONSULTATION: Infectious disease. REASON FOR CONSULTATION: Antibiotic management. HISTORY OF PRESENT ILLNESS: Reji Adams is an 83-year-old male who comes in with shortness of breath of 1 day's duration. Past problems include: 1. Coronary artery disease with CHF. 2. Cardiomyopathy. 3. History of [place]. 4. Hypertension. 5. Status post pacemaker/AICD placement. 6. Stents placed. 7. Status post heart valve replacement. Acutely, the patient comes in with shortness of breath. PAST MEDICAL HISTORY: Essentially as outlined. FAMILY HISTORY: Noncontributory. SOCIAL HISTORY: He is a former smoker. He does not drink or abuse drugs. ALLERGIES: NONE TO PENICILLIN, SULFA OR FOODS. MEDICATIONS: Per chart. REVIEW OF SYSTEMS: As per HPI. HOSPITAL COURSE: On admission, white count 7.7, H and H of 9.3 and 29.4, platelet count 154,000. BU N and creatinine is 28/1.68. The patient had a white count of 7.7 with 75% neutrophils. The patient had a left bundle branch block on EKG. Chest x-ray shows status post left-sided AICD, status post a ortic stent, mild to moderate cardiomegaly, central vascular congestion, increasing perihilar interst itial densities, bibasilar streaky linear densities likely representing combination of atelectasis an d edema. White count today is 6.0. The patient was started on ceftriaxone and azithromycin. A CT s can of the chest showed numerous nodules, nodular consolidative opacities throughout both lungs, prob ably represent multifocal pneumonia and possibly atypical, septic emboli or metastatic disease cannot be excluded, smooth interlobular septal thickening at the lung apices and bases possibly representin g early pulmonary edema, small bilateral pleural effusions, enlarged heart with coronary artery stent s and cardiac AICD. There has been a transcatheter aortic valve replacement, mildly enlarged main pu lmonary artery, raising the possibility of pulmonary hypertension, mild to moderate atherosclerotic a rterial calcifications. The patient was seen by Dr. Mar in cardiology evaluation. No acute event s. Continue gentle diuresis. PHYSICAL EXAMINATION: GENERAL: The patient is a well-developed, well-nourished male, awake, responsive, in no acute distre ss. VITAL SIGNS: Stable. He is afebrile. SKIN: Without generalized rash. HEENT: Within normal limits. NECK: Supple. LYMPH NODES: None palpable. CHEST: Decreased breath sounds at the bases. HEART: Grade 2/6 systolic ejection murmur at the apex. Regular rhythm. ABDOMEN: Soft, nontender without organosplenomegaly or masses. EXTREMITIES: Without cyanosis, clubbing and he has trace edema. RECTAL AND GENITAL: Deferred. NEUROLOGIC: No focal neurological abnormalities. IMPRESSION AND PLAN: The patient has multiple pulmonary nodules, probably related to pneumonia, wayne ot rule out possibility of metastatic disease or even pulmonary emboli and there is no evidence of th at at this point. We will continue him on current therapy and observe the opacities. I will dictate my findings to Dr. Benitez. Dictated By: GLADIS MICHAEL MD, JD/ELIZABETH Conf#: [id number] DID#: [id number] CC: MERT BENITEZ; ELEANOR ROLDAN MD;*End*
[2018-09-12] MEDS: ATORVASTATIN 20 MG TAB PO SCH (21:56)
[2018-09-12] MEDS: LATANOPROST 0.005% 2.5 ML OPH BOTH EYES SCH (21:58)
[2018-09-13] VITALS (12 sets, daily range): BP systolic 108–129; BP diastolic 54–63; PULSE 69–82; RESP 16–18
[2018-09-13] MEDS: ALBUTEROL/IPRATROPIUM (NEB) 3 ML AMP HHN SCH ×6 (01:00→20:52)
[2018-09-13] MEDS: LEVOTHYROXINE 75 MCG TAB PO SCH (06:16)
[2018-09-13] MEDS: PANTOPRAZOLE (EC) 40 MG TAB PO SCH (06:16)
[2018-09-13] MEDS: FUROSEMIDE 40 MG INJ IV SCH (06:17)
[2018-09-13] MEDS: ACCU-CHEK XX SCH ×4 (07:45→21:00)
[2018-09-13] MEDS: CEFTRIAXONE 1 GM/50 ML (PMX) 50 ML IVPB SCH (09:28)
[2018-09-13] MEDS: NATEGLINIDE 60 MG TAB PO SCH ×3 (09:30→17:35)
[2018-09-13] MEDS: METOLAZONE 2.5 MG TAB PO SCH (09:30)
[2018-09-13] MEDS: ALLOPURINOL 100 MG TAB PO SCH (09:30)
[2018-09-13] MEDS: ASPIRIN (EC) 81 MG TAB PO SCH (09:30)
[2018-09-13] MEDS: ISOSORBIDE MONONITRATE(SR)60 MG TAB PO SCH (09:30)
[2018-09-13] MEDS: TICAGRELOR 90 MG TABLET PO SCH ×2 (09:34→20:20)
--- NOTE | 2018-09-13 10:56 | CONS ---
Assessment/Plan Assessment/Plan Assessment/Plan (Daily) Assessment and recommendations; 1. Patient admitted with shortness of breath due to CHF exacerbation with underlying cardiomyopathy. 2. Chronic renal insufficiency. 3. History of aortic valve replacement. 4. Anemia and thrombocytopenia. 5. History of diabetes and hypertension. Continue current supportive care. Patient responding well to current treatment regimen. Consultation Date/Type/Reason Admit Date/Time Sep 12, 2018 at 09:28 Date of Consultation: Sep 13, 2018 Type of Consult Pulmonary pulmonary consult requested for evaluation of hypoxemia. Patient is a very pleasant 83-year-old gentleman who came into the hospital with a few days history of increasing shortness of breath. Patient denies any chest pain, wheezing, cough, sputum production hemoptysis, any fever or chills. Upon evaluation further workup was done including a chest x-ray as well as CT chest and BNP level which are consistent with exacerbation of underlying cardiomyopathy with CHF. Patient feeling somewhat better since admission. Complains of chronic dyspnea on exertion. Past medical history; 1. Cardiomyopathy with EF of around 25%. 2. Chronic renal insufficiency. 3. History of diabetes and hypertension. 4. Status post transcutaneous aortic valve replacement. 5. History of cardiac arrhythmia, status post pacemaker placement in the past. 6. History of appendectomy. Medications; reviewed. Allergies; none. Social history; patient never smoked. No stable alcohol or drug abuse. Family history; patient is single. 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 Review of systems; denies any headache, visual changes, sinus symptoms. Any chest pain or angina. Shortness of breath has improved since admission. Complains of chronic dyspnea on exertion. Complains of chronic orthopnea. Denies any abdominal pain, nausea vomiting. Any melena or hematochezia. Any urinary symptoms. Denies any weight loss. Denies any weight gain. General exam; elderly male, awake alert, currently in no distress. Looks younger than stated age. Date/Time of Note DATE: 09/13/18 TIME: 10:51 Past Medical History Home Meds Active Scripts Furosemide* (Furosemide*) 40 Mg Tablet, 40 MG PO DAILY for 30 Days, TAB Prov:MERT BENITEZ MD 08/21/18 Albuterol Sulfate* (Proair HFA*) 8.5 Gm Hfa.aer.ad, 2 PUFF INH Q4H PRN for WHEEZING AND SOB, #1 INHALER Prov:MERT BENITEZ MD 05/19/18 Hydralazine Hcl* (Apresoline*) 50 Mg Tab, 50 MG PO Q8 for 30 Days, TAB Prov:MYRA CABRALES 05/19/18 Atorvastatin Calcium (Atorvastatin Calcium) 20 Mg Tablet, 20 MG PO QHS for 30 Days, TAB Prov:MYRA CABRALES 05/19/18 Reported Medications Latanoprost (Xalatan) 2.5 Ml Drops, 1 DROP BOTH EYES QHS, #1 BOTTLE 05/09/18 Nateglinide* (Nateglinide*) 60 Mg Tablet, 180 MG PO AC MEALS, TAB 05/09/18 Levothyroxine Sodium* (Levothyroxine Sodium*) 75 Mcg Tablet, 75 MCG PO BEFORE BREAKFAST, #30 TAB 10/27/17 Sitagliptin* (Januvia*) 50 Mg Tablet, 50 MG PO DAILY, #30 TAB 07/30/17 Isosorbide Mononitrate* (Isosorbide Mononitrate*) 60 Mg Tab.er.24h, 60 MG PO DAILY, TAB 07/30/17 Carvedilol* (Carvedilol*) 25 Mg Tablet, 25 MG PO BID, #60 TAB 07/30/17 Ticagrelor* (Brilinta*) 90 Mg Tablet, 90 MG PO Q12, TAB 07/30/17 Aspirin (Low Dose Aspirin) 81 Mg Tablet.dr, 81 MG PO DAILY, #30 TAB 07/30/17 Allopurinol* (Allopurinol*) 100 Mg Tablet, 100 MG PO DAILY, TAB 07/30/17 Medications Current Medications IV Flush (NS 3 ml) 3 ml PER PROTOCOL IV ; Start 09/11/18 at 15:00 Ondansetron HCl (Zofran Inj) 4 mg Q6H PRN IV NAUSEA/VOMITING; Start 09/11/18 at 15:00 Acetaminophen (Tylenol Tab) 650 mg Q6H PRN PO .PAIN 1-3 OR TEMP; Start 09/11/18 at 15:00 Acetaminophen/ Hydrocodone Bitart ([place] (5/325)) 1 tab Q6H PRN PO .MOD PAIN 4- 6; Start 09/11/18 at 15:00 Docusate Sodium (Colace) 100 mg Q12H PRN PO .CONSTIPATION; Start 09/11/18 at 15:00 Pantoprazole (Protonix Tab) 40 mg DAILY@06 PO Last administered on 09/13/18 06:16; Admin Dose 40 MG; Start 09/12/18 at 06:00 Allopurinol (Zyloprim) 100 mg DAILY PO Last administered on 09/13/18 09:30; Admin Dose 100 MG; Start 09/12/18 at 09:00 Aspirin (Halfprin) 81 mg DAILY PO Last administered on 09/13/18 09:30; Admin Dose 81 MG; Start 09/12/18 at 09:00 Atorvastatin Calcium (Lipitor) 20 mg QHS PO Last administered on 09/12/18 21:56; Admin Dose 20 MG; Start 09/11/18 at 21:00 Carvedilol (Coreg) 25 mg BID PO Last administered on 09/13/18 09:31; Admin Dose 25 MG; Start 09/11/18 at 21:00 Hydralazine HCl (Apresoline) 50 mg Q8 PO Last administered on 09/13/18 06:17; Admin Dose 50 MG; Start 09/11/18 at 22:00 Isosorbide Mononitrate (Imdur) 60 mg DAILY PO Last administered on 09/13/18 09:30; Admin Dose 60 MG; Start 09/12/18 at 09:00 Latanoprost (Xalatan) 1 drop QHS BOTH EYES Last administered on 09/12/18 21:58; Admin Dose 1 DROP; Start 09/11/18 at 21:00 Levothyroxine Sodium (Synthroid) 75 mcg BEFORE BREAKFAST PO Last administered on 09/13/18 06:16; Admin Dose 75 MCG; Start 09/12/18 at 07:00 Nateglinide (Starlix) 180 mg AC MEALS PO Last administered on 09/13/18 09:30; Admin Dose 180 MG; Start 09/11/18 at 17:25 Ticagrelor (Brilinta) 90 mg Q12 PO Last administered on 09/13/18 09:34; Admin Dose 90 MG; Start 09/11/18 at 21:00 Diagnostic Test (Pha) (Accu-Chek) 1 ea AC MEALS AND BEDTIME XX Last administered on 3/27/19at 07:45; Admin Dose 1 EA; Start 09/11/18 at 17:25 Ceftriaxone Sodium 50 ml @ 100 mls/hr DAILY IVPB Last administered on 09/13/18at 09:28; Admin Dose 100 MLS/HR; Start 09/11/18 at 15:30 Azithromycin 500 mg/Sodium Chloride 250 ml @ 250 mls/hr Q24H IVPB Last administered on 09/12/18at 17:20; Admin Dose 250 MLS/HR; Start 09/11/18 at 17:00 Albuterol/ Ipratropium (Duoneb) 3 ml Q4H RESP THERAPY HHN Last administered on 09/13/18at 05:05; Admin Dose 3 ML; Start 09/11/18 at 17:00 Allergies: Coded Allergies: No Known Allergies (Verified Allergy, Unknown, 08/14/18) Past Surgical History Past Surgical Hx: angioplasty Social History Smoking Status: Never smoker Exam/Review of Systems Exam Vitals Vital Signs Date Temp Pulse Resp B/P (MAP) Pulse Ox O2 O2 Flow FiO2 Time Delivery Rate 09/13/18 70 08:01 09/13/18 Nasal 2.0 07:45 Cannula 09/13/18 98.7 18 129/62 96 07:40 (84) 09/12/18 28 17:13 Intake and Output 09/12/18 09/12/18 09/13/18 1515:00 23:00 07:00 IntakeIntake Total 50 ml 1150 ml 500 ml OutputOutput Total 1100 ml 850 ml BalanceBalance 50 ml 50 ml -350 ml Exam H EENT exam; supple neck, positive JVD. No lymphadenopathy. Midline trachea. No thyromegaly. Vision has a multiple carious teeth. Pupils are small bilaterally. Chest exam; diminished but clear breath sounds. S1-S2 audible, no murmurs. Pacemaker in left chest wall. Abdomen exam; soft, no organomegaly. Bowel sounds audible. Nondistended. Extremity exam; no peripheral edema. 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 Results Result Diagram: 09/12/18 0747 09/13/18 0608 Results 24hrs Laboratory Tests Test 09/12/18 11:45 09/12/18 17:19 09/12/18 22:01 09/13/18 06:08 Bedside Glucose 181 89 103 Sodium Level 144 Potassium Level 3.4 L Chloride Level 106 Carbon Dioxide Level 26 Anion Gap 12 Blood Urea Nitrogen 36 H Creatinine 2.19 H Est Glomerular Filtrat Rate mL/min Glucose Level 100 Calcium Level 9.2 Carcinoembryonic 1.2 Antigen CA 19-9 Antigen 3.4 Prostate Specific 3.9 Antigen Test 09/13/18 07:44 Bedside Glucose 110 Medications Medication Current Medications IV Flush (NS 3 ml) 3 ml PER PROTOCOL IV ; Start 09/11/18 at 15:00 Ondansetron HCl (Zofran Inj) 4 mg Q6H PRN IV NAUSEA/VOMITING; Start 09/11/18 at 15:00 Acetaminophen (Tylenol Tab) 650 mg Q6H PRN PO .PAIN 1-3 OR TEMP; Start 09/11/18 at 15:00 Acetaminophen/ Hydrocodone Bitart ([place] (5/325)) 1 tab Q6H PRN PO .MOD PAIN 4- 6; Start 09/11/18 at 15:00 Docusate Sodium (Colace) 100 mg Q12H PRN PO .CONSTIPATION; Start 09/11/18 at 15:00 Pantoprazole (Protonix Tab) 40 mg DAILY@06 PO Last administered on 09/13/18 06:16; Admin Dose 40 MG; Start 09/12/18 at 06:00 Allopurinol (Zyloprim) 100 mg DAILY PO Last administered on 09/13/18 09:30; Admin Dose 100 MG; Start 09/12/18 at 09:00 Aspirin (Halfprin) 81 mg DAILY PO Last administered on 09/13/18 09:30; Admin Dose 81 MG; Start 09/12/18 at 09:00 Atorvastatin Calcium (Lipitor) 20 mg QHS PO Last administered on 09/12/18 21:56; Admin Dose 20 MG; Start 09/11/18 at 21:00 Carvedilol (Coreg) 25 mg BID PO Last administered on 09/13/18 09:31; Admin Dose 25 MG; Start 09/11/18 at 21:00 Hydralazine HCl (Apresoline) 50 mg Q8 PO Last administered on 09/13/18 06:17; Admin Dose 50 MG; Start 09/11/18 at 22:00 Isosorbide Mononitrate (Imdur) 60 mg DAILY PO Last administered on 09/13/18 09:30; Admin Dose 60 MG; Start 09/12/18 at 09:00 Latanoprost (Xalatan) 1 drop QHS BOTH EYES Last administered on 09/12/18 21:58; Admin Dose 1 DROP; Start 09/11/18 at 21:00 Levothyroxine Sodium (Synthroid) 75 mcg BEFORE BREAKFAST PO Last administered on 09/13/18 06:16; Admin Dose 75 MCG; Start 09/12/18 at 07:00 Nateglinide (Starlix) 180 mg AC MEALS PO Last administered on 09/13/18 09:30; Admin Dose 180 MG; Start 09/11/18 at 17:25 Ticagrelor (Brilinta) 90 mg Q12 PO Last administered on 09/13/18 09:34; Admin Dose 90 MG; Start 09/11/18 at 21:00 Diagnostic Test (Pha) (Accu-Chek) 1 ea AC MEALS AND BEDTIME XX Last administered on 09/13/18 07:45; Admin Dose 1 EA; Start 09/11/18 at 17:25 Ceftriaxone Sodium 50 ml @ 100 mls/hr DAILY IVPB Last administered on 09/13/18 09:28; Admin Dose 100 MLS/HR; Start 09/11/18 at 15:30 Azithromycin 500 mg/Sodium Chloride 250 ml @ 250 mls/hr Q24H IVPB Last administered on 09/12/18 17:20; Admin Dose 250 MLS/HR; Start 09/11/18 at 17:00 Albuterol/ Ipratropium (Duoneb) 3 ml Q4H RESP THERAPY HHN Last administered on 09/13/18 05:05; Admin Dose 3 ML; Start 09/11/18 at 17:00 CARMELO JOYA Sep 13, 2018 10:56
[2018-09-13] MEDS ORDERED: POTASSIUM CHLORIDE (SR) 20 MEQ TAB PO STA (11:25)
--- NOTE | 2018-09-13 11:57 | PN ---
Date/Time of Note Date/Time of Note DATE: 09/13/18 TIME: 11:28 Assessment/Plan VTE Prophylaxis Risk score (from Ns)>0 risk: 5 SCD applied (from Ns): Yes Pharmacological prophylaxis: NA/contraindicated Pharm contraindication: low risk/ambulating Lines/Catheters IV [facility] [place] Urinary Cath still in place: No Assessment/Plan Assessment/Plan Assessment/Plan 83-year-old male who presented with: 1. Shortness of breath likely secondary to congestive heart failure exacerbation, acute on chronic. However, the patient also had low-grade fevers. We cannot rule out underlying pneumonia. CT of the chest shows Numerous nodular consolidative opacities throughout both lungs. These probably represent a multifocal pneumonia, possibly atypical, however other entities such as septic emboli or metastatic disease cannot be excluded. 2. History of acute on chronic congestive heart failure. 3. Chronic kidney disease stage III. now with KEN due to diuresis 4. Elevated BNP due to congestive heart failure. 5. Diabetes. 6. Hypertension. 7. Hyperlipidemia. 8. 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 9. History of transaortic valve replacement. Sivakumar -Continue with Rocephin/azithromycin, send sputum cultures - hold diuretics due to rising Cr - monitor Cr -Echo pending -CEA, CA 189 and PSA wnl - V/Q scan for persistent sob - GI/DVT prophylaxsis Result Diagram: 09/12/18 0747 09/13/18 0608 Results 24hrs Laboratory Tests Test 09/12/18 11:45 09/12/18 17:19 09/12/18 22:01 09/13/18 06:08 Bedside Glucose 181 89 103 Sodium Level 144 Potassium Level 3.4 L Chloride Level 106 Carbon Dioxide Level 26 Anion Gap 12 Blood Urea Nitrogen 36 H Creatinine 2.19 H Est Glomerular Filtrat Rate mL/min Glucose Level 100 Calcium Level 9.2 Carcinoembryonic 1.2 Antigen CA 19-9 Antigen 3.4 Prostate Specific 3.9 Antigen Test 09/13/18 07:44 09/13/18 11:07 Bedside Glucose 110 197 Subjective 24 Hr Interval Summary Free Text/Dictation Shortness of breath is improved No fevers noted Exam/Review of Systems Exam Vitals Vital Signs Date Temp Pulse Resp B/P (MAP) Pulse Ox O2 O2 Flow FiO2 Time Delivery Rate 09/13/18 70 08:01 09/13/18 Nasal 2.0 07:45 Cannula 09/13/18 98.7 18 129/62 96 07:40 (84) 09/12/18 28 17:13 Intake and Output 09/12/18 09/12/18 09/13/18 1515:00 23:00 07:00 IntakeIntake Total 50 ml 1150 ml 500 ml OutputOutput Total 1100 ml 850 ml BalanceBalance 50 ml 50 ml -350 ml Exam Exam GENERAL: The patient is awake, alert, oriented, does not appear to in any acute distress. HEENT: Pupils are equal, round, react to light. NECK: Supple. No JVD. HEART: Regular rate and rhythm. LUNGS: Some decreased breath sounds bilaterally. ABDOMEN: Soft, nontender, nondistended, positive normoactive bowel sounds. The patient is obese. EXTREMITIES: Trace edema. Results Results 24hrs Laboratory Tests Test 09/12/18 11:45 09/12/18 17:19 09/12/18 22:01 09/13/18 06:08 Bedside Glucose 181 89 103 Sodium Level 144 Potassium Level 3.4 L Chloride Level 106 Carbon Dioxide Level 26 Anion Gap 12 Blood Urea Nitrogen 36 H Creatinine 2.19 H Est Glomerular Filtrat Rate mL/min Glucose Level 100 Calcium Level 9.2 Carcinoembryonic 1.2 Antigen CA 19-9 Antigen 3.4 Prostate Specific 3.9 Antigen Test 09/13/18 07:44 09/13/18 11:07 Bedside Glucose 110 197 Medications Medication Current Medications IV Flush (NS 3 ml) 3 ml PER PROTOCOL IV ; Start 09/11/18 at 15:00 Ondansetron HCl (Zofran Inj) 4 mg Q6H PRN IV NAUSEA/VOMITING; Start 09/11/18 at 15:00 Acetaminophen (Tylenol Tab) 650 mg Q6H PRN PO .PAIN 1-3 OR TEMP; Start 09/11/18 at 15:00 Acetaminophen/ Hydrocodone Bitart ([place] (5/325)) 1 tab Q6H PRN PO .MOD PAIN 4- 6; Start 09/11/18 at 15:00 Docusate Sodium (Colace) 100 mg Q12H PRN PO .CONSTIPATION; Start 09/11/18 at 15:00 Pantoprazole (Protonix Tab) 40 mg DAILY@06 PO Last administered on 09/13/18 06:16; Admin Dose 40 MG; Start 09/12/18 at 06:00 Allopurinol (Zyloprim) 100 mg DAILY PO Last administered on 09/13/18 09:30; Admin Dose 100 MG; Start 09/12/18 at 09:00 Aspirin (Halfprin) 81 mg DAILY PO Last administered on 09/13/18 09:30; Admin Dose 81 MG; Start 09/12/18 at 09:00 Atorvastatin Calcium (Lipitor) 20 mg QHS PO Last administered on 09/12/18 21:56; Admin Dose 20 MG; Start 09/11/18 at 21:00 Carvedilol (Coreg) 25 mg BID PO Last administered on 09/13/18 09:31; Admin Dose 25 MG; Start 09/11/18 at 21:00 Hydralazine HCl (Apresoline) 50 mg Q8 PO Last administered on 09/13/18 06:17; Admin Dose 50 MG; Start 09/11/18 at 22:00 Isosorbide Mononitrate (Imdur) 60 mg DAILY PO Last administered on 09/13/18 09:30; Admin Dose 60 MG; Start 09/12/18 at 09:00 Latanoprost (Xalatan) 1 drop QHS BOTH EYES Last administered on 09/12/18 21:58; Admin Dose 1 DROP; Start 09/11/18 at 21:00 Levothyroxine Sodium (Synthroid) 75 mcg BEFORE BREAKFAST PO Last administered on 09/13/18 06:16; Admin Dose 75 MCG; Start 09/12/18 at 07:00 Nateglinide (Starlix) 180 mg AC MEALS PO Last administered on 09/13/18 11:10; Admin Dose 180 MG; Start 09/11/18 at 17:25 Ticagrelor (Brilinta) 90 mg Q12 PO Last administered on 09/13/18 09:34; Admin Dose 90 MG; Start 09/11/18 at 21:00 Diagnostic Test (Pha) (Accu-Chek) 1 ea AC MEALS AND BEDTIME XX Last administered on 09/13/18 11:10; Admin Dose 1 EA; Start 09/11/18 at 17:25 Ceftriaxone Sodium 50 ml @ 100 mls/hr DAILY IVPB Last administered on 09/13/18at 09:28; Admin Dose 100 MLS/HR; Start 09/11/18 at 15:30 Azithromycin 500 mg/Sodium Chloride 250 ml @ 250 mls/hr Q24H IVPB Last administered on 09/12/18at 17:20; Admin Dose 250 MLS/HR; Start 09/11/18 at 17:00 Albuterol/ Ipratropium (Duoneb) 3 ml Q4H RESP THERAPY HHN Last administered on 09/13/18at 05:05; Admin Dose 3 ML; Start 09/11/18 at 17:00 Potassium Chloride (Klor-Con 20) 40 meq ONCE STAT PO ; Start 09/13/18 at 11:25; Stop 09/13/18 at 11:26; Status MERT ROMERO MD Sep 13, 2018 11:57
--- NOTE | 2018-09-13 14:55 | CONS ---
Assessment/Plan Assessment/Plan Hospital Course (Demo Recall) No acute changes overnight patient is alert feels better, still having cough he does not have any shortness of breath he is not in distress afebrile. WBC yesterday was 6 without shift to the left today BUN and creatinine 36 and 2.19 MRSA swab negative Antimicrobials: Zithromax, Rocephin Physical examination: This is a well-developed obese elderly man who is alert in no distress. Head atraumatic normocephalic sclera nonicteric. Neck is supple. Chest rise symmetrical breath sounds diminished bases. Heart: S1-S2. Abdomen soft bowel sounds present. Extremities without cyanosis Assessment: 1. Acute hypoxemia on admission 2. Possible pneumonia 3. Cardiomyopathy with CHF exacerbation 4. Acute possibly on chronic kidney disease 5. Coronary artery disease with a history of aortic valve replacement 6. Diabetes 7. Hypertension Plan: Patient remains stable, pulmonary recommendations noted, 2D echo reviewed==> ejection fraction 25% with global hypokinesis and mild mitral valve regurgitation. We will change Zithromax to oral, continue Rocephin for now Consultation Date/Type/Reason Admit Date/Time Sep 12, 2018 at 09:28 Initial Consult Date 09/13/18 Type of Consult id Date/Time of Note DATE: 09/13/18 TIME: 14:55 Exam/Review of Systems Exam Vitals Vital Signs Date Temp Pulse Resp B/P (MAP) Pulse Ox O2 O2 Flow FiO2 Time Delivery Rate 09/13/18 2.0 14:08 09/13/18 76 20 98 Nasal 14:08 Cannula 09/13/18 98.1 118/63 12:00 (81) 09/12/18 28 17:13 Intake and Output 09/12/18 09/12/18 09/13/18 1515:00 23:00 07:00 IntakeIntake Total 50 ml 1150 ml 500 ml OutputOutput Total 1100 ml 850 ml BalanceBalance 50 ml 50 ml -350 ml Results Result Diagram: 09/12/18 0747 09/13/18 0608 Results 24hrs Laboratory Tests Test 09/12/18 17:19 09/12/18 22:01 09/13/18 06:08 09/13/18 07:44 Bedside Glucose 89 103 110 Sodium Level 144 Potassium Level 3.4 L Chloride Level 106 Carbon Dioxide Level 26 Anion Gap 12 Blood Urea Nitrogen 36 H Creatinine 2.19 H Est Glomerular Filtrat Rate mL/min Glucose Level 100 Calcium Level 9.2 Carcinoembryonic 1.2 Antigen CA 19-9 Antigen 3.4 Prostate Specific 3.9 Antigen Test 09/13/18 11:07 Bedside Glucose 197 Medications Medication Current Medications IV Flush (NS 3 ml) 3 ml PER PROTOCOL IV ; Start 09/11/18 at 15:00 Ondansetron HCl (Zofran Inj) 4 mg Q6H PRN IV NAUSEA/VOMITING; Start 09/11/18 at 15:00 Acetaminophen (Tylenol Tab) 650 mg Q6H PRN PO .PAIN 1-3 OR TEMP; Start 09/11/18 at 15:00 Acetaminophen/ Hydrocodone Bitart ([place] (5/325)) 1 tab Q6H PRN PO .MOD PAIN 4- 6; Start 09/11/18 at 15:00 Docusate Sodium (Colace) 100 mg Q12H PRN PO .CONSTIPATION; Start 09/11/18 at 15:00 Pantoprazole (Protonix Tab) 40 mg DAILY@06 PO Last administered on 09/13/18 06:16; Admin Dose 40 MG; Start 09/12/18 at 06:00 Allopurinol (Zyloprim) 100 mg DAILY PO Last administered on 09/13/18 09:30; Admin Dose 100 MG; Start 09/12/18 at 09:00 Aspirin (Halfprin) 81 mg DAILY PO Last administered on 09/13/18 09:30; Admin Dose 81 MG; Start 09/12/18 at 09:00 Atorvastatin Calcium (Lipitor) 20 mg QHS PO Last administered on 09/12/18 21:56; Admin Dose 20 MG; Start 09/11/18 at 21:00 Carvedilol (Coreg) 25 mg BID PO Last administered on 09/13/18 09:31; Admin Dose 25 MG; Start 09/11/18 at 21:00 Hydralazine HCl (Apresoline) 50 mg Q8 PO Last administered on 09/13/18 14:02; Admin Dose 50 MG; Start 09/11/18 at 22:00 Isosorbide Mononitrate (Imdur) 60 mg DAILY PO Last administered on 09/13/18 09:30; Admin Dose 60 MG; Start 09/12/18 at 09:00 Latanoprost (Xalatan) 1 drop QHS BOTH EYES Last administered on 09/12/18 21:58; Admin Dose 1 DROP; Start 09/11/18 at 21:00 Levothyroxine Sodium (Synthroid) 75 mcg BEFORE BREAKFAST PO Last administered on 09/13/18 06:16; Admin Dose 75 MCG; Start 09/12/18 at 07:00 Nateglinide (Starlix) 180 mg AC MEALS PO Last administered on 09/13/18 11:10; Admin Dose 180 MG; Start 09/11/18 at 17:25 Ticagrelor (Brilinta) 90 mg Q12 PO Last administered on 09/13/18 09:34; Admin Dose 90 MG; Start 09/11/18 at 21:00 Diagnostic Test (Pha) (Accu-Chek) 1 ea AC MEALS AND BEDTIME XX Last administered on 09/13/18 11:10; Admin Dose 1 EA; Start 09/11/18 at 17:25 Ceftriaxone Sodium 50 ml @ 100 mls/hr DAILY IVPB Last administered on 09/13/18 09:28; Admin Dose 100 MLS/HR; Start 09/11/18 at 15:30 Azithromycin 500 mg/Sodium Chloride 250 ml @ 250 mls/hr Q24H IVPB Last ad ministered on 09/12/18 17:20; Admin Dose 250 MLS/HR; Start 09/11/18 at 17:00 Albuterol/ Ipratropium (Duoneb) 3 ml Q4H RESP THERAPY HHN Last administered on 09/13/18 14:04; Admin Dose 3 ML; Start 09/11/18 at 17:00 DOMONIQUE ANGELO NP Sep 13, 2018 14:55
--- NOTE | 2018-09-13 17:53 | CONS ---
Assessment/Plan Assessment/Plan Hospital Course (Demo Recall) IMPRESSION: 1. Congestive heart failure exacerbation, systolic, acute on chronic.-neg trop x 3 2. Cardiomyopathy with decreased left ventricular ejection fraction, last known to be approximately 30% by echo in 04/2018. 25% by echo this admit 3. History of PTCA and stent placement, most recently to right coronary artery and left main in 06/2017. 4. History of transcatheter aortic valve replacement or TAVR in 10/2017.-proper function by echo this admit 5. Hypertension. 6. Dyslipidemia. 7. Chronic kidney disease, not on hemodialysis. 8. Shortness of breath secondary to #1. PLan: -Tele -Continue asa/brilinta -Continue coreg/hydralazine/imdur -Lasix metolazone held in the setting of acute on chronic renal failure -Continue abxz's and f/u cx data -Will perform stress test prior to d/c Consultation Date/Type/Reason Admit Date/Time Sep 12, 2018 at 09:28 Initial Consult Date 09/13/18 Type of Consult Cardiology Reason for Consultation CHF Requesting Provider: MERT BENITEZ MD Date/Time of Note DATE: 09/13/18 TIME: 17:48 Exam/Review of Systems Vital Signs Vitals Vital Signs Date Temp Pulse Resp B/P (MAP) Pulse Ox O2 O2 Flow FiO2 Time Delivery Rate 09/13/18 98.1 78 18 115/62 99 16:13 (79) 09/13/18 2.0 14:08 09/13/18 Nasal 14:08 Cannula 09/12/18 28 17:13 Intake and Output 09/12/18 09/12/18 09/13/18 1515:00 23:00 07:00 IntakeIntake Total 50 ml 1150 ml 500 ml OutputOutput Total 1100 ml 850 ml BalanceBalance 50 ml 50 ml -350 ml Exam Exam Review of Systems: CONSTITUTIONAL: No fevers, chills. PULMONARY: No sob CARDIOVASCULAR: No chest pain/palpitations GASTROINTESTINAL: No nausea/vomiting. GENITOURINARY: No hematuria/dysuria. MUSCULOSKELETAL: No myagias/arthalgias. PSYCHIATRIC: The patient denies depression. NEUROLOGIC: No weakness Constitutional: alert Psych: no complaints Head: normocephalic ENMT: mucosa pink and moist Neck: supple, jvd (9 cm water) Respiratory: diminished breath sounds (at bases/B) Cardiovascular: regular rate and rhythm Gastrointestinal: soft, non-tender Musculoskeletal: muscle tone (normal) Extremities: edema (none) Labs Result Diagram: 09/12/18 0747 09/13/18 0608 Results 24hrs Laboratory Tests Test 09/12/18 22:01 09/13/18 06:08 09/13/18 07:44 09/13/18 11:07 Bedside Glucose 103 110 197 Sodium Level 144 Potassium Level 3.4 L Chloride Level 106 Carbon Dioxide Level 26 Anion Gap 12 Blood Urea Nitrogen 36 H Creatinine 2.19 H Est Glomerular Filtrat Rate mL/min Glucose Level 100 Calcium Level 9.2 Carcinoembryonic 1.2 Antigen CA 19-9 Antigen 3.4 Prostate Specific 3.9 Antigen Test 09/13/18 17:24 Bedside Glucose 88 Medications Medications Current Medications IV Flush (NS 3 ml) 3 ml PER PROTOCOL IV ; Start 09/11/18 at 15:00 Ondansetron HCl (Zofran Inj) 4 mg Q6H PRN IV NAUSEA/VOMITING; Start 09/11/18 at 15:00 Acetaminophen (Tylenol Tab) 650 mg Q6H PRN PO .PAIN 1-3 OR TEMP; Start 09/11/18 at 15:00 Acetaminophen/ Hydrocodone Bitart ([place] (5/325)) 1 tab Q6H PRN PO .MOD PAIN 4- 6; Start 09/11/18 at 15:00 Docusate Sodium (Colace) 100 mg Q12H PRN PO .CONSTIPATION; Start 09/11/18 at 15:00 Pantoprazole (Protonix Tab) 40 mg DAILY@06 PO Last administered on 09/13/18at 06:16; Admin Dose 40 MG; Start 09/12/18 at 06:00 Allopurinol (Zyloprim) 100 mg DAILY PO Last administered on 09/13/18at 09:30; Admin Dose 100 MG; Start 09/12/18 at 09:00 Aspirin (Halfprin) 81 mg DAILY PO Last administered on 09/13/18at 09:30; Admin Dose 81 MG; Start 09/12/18 at 09:00 Atorvastatin Calcium (Lipitor) 20 mg QHS PO Last administered on 09/12/18at 21:56; Admin Dose 20 MG; Start 09/11/18 at 21:00 Carvedilol (Coreg) 25 mg BID PO Last administered on 09/13/18 09:31; Admin Dose 25 MG; Start 09/11/18 at 21:00 Hydralazine HCl (Apresoline) 50 mg Q8 PO Last administered on 09/13/18 14:02; Admin Dose 50 MG; Start 09/11/18 at 22:00 Isosorbide Mononitrate (Imdur) 60 mg DAILY PO Last administered on 09/13/18 09:30; Admin Dose 60 MG; Start 09/12/18 at 09:00 Latanoprost (Xalatan) 1 drop QHS BOTH EYES Last administered on 09/12/18 21:58; Admin Dose 1 DROP; Start 09/11/18 at 21:00 Levothyroxine Sodium (Synthroid) 75 mcg BEFORE BREAKFAST PO Last administered on 09/13/18 06:16; Admin Dose 75 MCG; Start 09/12/18 at 07:00 Nateglinide (Starlix) 180 mg AC MEALS PO Last administered on 09/13/18 17:35; Admin Dose 180 MG; Start 09/11/18 at 17:25 Ticagrelor (Brilinta) 90 mg Q12 PO Last administered on 09/13/18 09:34; Admin Dose 90 MG; Start 09/11/18 at 21:00 Diagnostic Test (Pha) (Accu-Chek) 1 ea AC MEALS AND BEDTIME XX Last administered on 09/13/18 17:24; Admin Dose 1 EA; Start 09/11/18 at 17:25 Ceftriaxone Sodium 50 ml @ 100 mls/hr DAILY IVPB Last administered on 09/13/18 09:28; Admin Dose 100 MLS/HR; Start 09/11/18 at 15:30 Albuterol/ Ipratropium (Duoneb) 3 ml Q4H RESP THERAPY HHN Last administered on 09/13/18 14:04; Admin Dose 3 ML; Start 09/11/18 at 17:00 Azithromycin (Zithromax) 250 mg DAILY PO ; Start 09/14/18 at 09:00 ELEANOR ROLDAN 27, 2019 17:53
[2018-09-13] MEDS: LATANOPROST 0.005% 2.5 ML OPH BOTH EYES SCH (20:12)
[2018-09-13] MEDS: ATORVASTATIN 20 MG TAB PO SCH (20:12)
[2018-09-13] MEDS: ACETAMINOPHEN 325 MG TAB PO PRN (23:39)
[2018-09-14] VITALS (11 sets, daily range): BP systolic 103–141; BP diastolic 56–65; PULSE 69–85; RESP 18–19
[2018-09-14] MEDS: ALBUTEROL/IPRATROPIUM (NEB) 3 ML AMP HHN SCH ×6 (01:00→21:11)
[2018-09-14] MEDS: PANTOPRAZOLE (EC) 40 MG TAB PO SCH (05:27)
[2018-09-14] MEDS: LEVOTHYROXINE 75 MCG TAB PO SCH (05:27)
[2018-09-14] MEDS: ACCU-CHEK XX SCH ×4 (07:25→20:06)
[2018-09-14] MEDS: CEFTRIAXONE 1 GM/50 ML (PMX) 50 ML IVPB SCH (08:38)
[2018-09-14] MEDS: NATEGLINIDE 60 MG TAB PO SCH ×3 (08:38→17:26)
[2018-09-14] MEDS: ASPIRIN (EC) 81 MG TAB PO SCH (08:39)
[2018-09-14] MEDS: ALLOPURINOL 100 MG TAB PO SCH (08:39)
[2018-09-14] MEDS: AZITHROMYCIN 250 MG TAB PO SCH (08:39)
[2018-09-14] MEDS: ISOSORBIDE MONONITRATE(SR)60 MG TAB PO SCH (08:39)
[2018-09-14] MEDS: TICAGRELOR 90 MG TABLET PO SCH ×2 (08:55→20:29)
[2018-09-14] MEDS ORDERED: POTASSIUM CHLORIDE (SR) 20 MEQ TAB PO STA (09:14)
--- NOTE | 2018-09-14 10:11 | PN ---
Date/Time of Note Date/Time of Note DATE: 09/14/18 TIME: 10:11 Assessment/Plan VTE Prophylaxis Risk score (from Ns)>0 risk: 5 SCD applied (from Ns): Yes Pharmacological prophylaxis: NA/contraindicated Pharm contraindication: low risk/ambulating Lines/Catheters IV [facility] [place] Urinary Cath still in place: No Assessment/Plan Hospital Course 83-year-old male who presented with: 1. Shortness of breath likely secondary to congestive heart failure exacerbation, acute on chronic. However, the patient also had low-grade fevers. We cannot rule out underlying pneumonia. CT of the chest shows Numerous nodular consolidative opacities throughout both lungs. These probably represent a multifocal pneumonia, possibly atypical, however other entities such as septic emboli or metastatic disease cannot be excluded. 2. History of acute on chronic congestive heart failure. 3. Chronic kidney disease stage III. now with KEN due to diuresis 4. Elevated BNP due to congestive heart failure. 5. Diabetes. 6. Hypertension. 7. Hyperlipidemia. 8. 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 9. History of transaortic valve replacement. Sivakumar -Continue with Rocephin/azithromycin, - hold diuretics due to rising Cr -Patient is not a candidate for any kind of biopsy per pulmonary due to her advanced comorbidities - monitor Cr -Echo worsening EF of 25% -CEA, CA 189 and PSA wnl -Agree with aspirin statin Brilinta Coreg - V/Q negative for PE - GI/DVT prophylaxsis - fu with pulmonary /cardiac recs/ID Result Diagram: 09/12/18 0747 09/14/18 0643 Results 24hrs Laboratory Tests Test 09/13/18 11:07 09/13/18 12:30 09/13/18 17:24 09/13/18 20:12 Bedside Glucose 197 88 97 Urine Color STRAW Urine Clarity CLEAR Urine pH 5.0 Urine Specific 1.008 [place] Urine Ketones NEGATIVE Urine Nitrite NEGATIVE Urine Bilirubin NEGATIVE Urine Urobilinogen NEGATIVE Urine Leukocyte NEGATIVE Esterase Urine Hemoglobin NEGATIVE Urine Glucose NEGATIVE Urine Total Protein NEGATIVE Test 09/14/18 06:43 09/14/18 08:16 Sodium Level 143 Potassium Level 3.4 L Chloride Level 101 Carbon Dioxide Level 26 Anion Gap 16 H Blood Urea Nitrogen 43 H Creatinine 2.30 H Est Glomerular Filtrat Rate mL/min Glucose Level 105 Calcium Level 9.3 Bedside Glucose 106 Subjective 24 Hr Interval Summary Free Text/Dictation Some cough. Exam/Review of Systems Exam Vitals Vital Signs Date Temp Pulse Resp B/P (MAP) Pulse Ox O2 O2 Flow FiO2 Time Delivery Rate 09/14/18 74 18 98 Nasal 2.0 09:27 Cannula 09/14/18 98.5 141/65 07:45 (90) 09/12/18 28 17:13 Intake and Output 09/13/18 09/13/18 09/14/18 1515:00 23:00 07:00 IntakeIntake Total 800 ml 300 ml OutputOutput Total 1000 ml 425 ml BalanceBalance -200 ml -125 ml Exam GENERAL: The patient is awake, alert, oriented, does not appear to in any acute distress. HEENT: Pupils are equal, round, react to light. NECK: Supple. No JVD. HEART: Regular rate and rhythm. LUNGS: Some decreased breath sounds bilaterally. ABDOMEN: Soft, nontender, nondistended, positive normoactive bowel sounds. The patient is obese. EXTREMITIES: Trace edema. Results Results 24hrs Laboratory Tests Test 09/13/18 11:07 09/13/18 12:30 09/13/18 17:24 09/13/18 20:12 Bedside Glucose 197 88 97 Urine Color STRAW Urine Clarity CLEAR Urine pH 5.0 Urine Specific 1.008 [place] Urine Ketones NEGATIVE Urine Nitrite NEGATIVE Urine Bilirubin NEGATIVE Urine Urobilinogen NEGATIVE Urine Leukocyte NEGATIVE Esterase Urine Hemoglobin NEGATIVE Urine Glucose NEGATIVE Urine Total Protein NEGATIVE Test 09/14/18 06:43 09/14/18 08:16 Sodium Level 143 Potassium Level 3.4 L Chloride Level 101 Carbon Dioxide Level 26 Anion Gap 16 H Blood Urea Nitrogen 43 H Creatinine 2.30 H Est Glomerular Filtrat Rate mL/min Glucose Level 105 Calcium Level 9.3 Bedside Glucose 106 Medications Medication Current Medications IV Flush (NS 3 ml) 3 ml PER PROTOCOL IV ; Start 09/11/18 at 15:00 Ondansetron HCl (Zofran Inj) 4 mg Q6H PRN IV NAUSEA/VOMITING; Start 09/11/18 at 15:00 Acetaminophen (Tylenol Tab) 650 mg Q6H PRN PO .PAIN 1-3 OR TEMP Last administered on 09/13/18at 23:39; Admin Dose 650 MG; Start 09/11/18 at 15:00 Acetaminophen/ Hydrocodone Bitart ([place] (5/325)) 1 tab Q6H PRN PO .MOD PAIN 4- 6; Start 09/11/18 at 15:00 Docusate Sodium (Colace) 100 mg Q12H PRN PO .CONSTIPATION; Start 09/11/18 at 15:00 Pantoprazole (Protonix Tab) 40 mg DAILY@06 PO Last administered on 09/14/18 05:27; Admin Dose 40 MG; Start 09/12/18 at 06:00 Allopurinol (Zyloprim) 100 mg DAILY PO Last administered on 09/14/18 08:39; Admin Dose 100 MG; Start 09/12/18 at 09:00 Aspirin (Halfprin) 81 mg DAILY PO Last administered on 09/14/18 08:39; Admin Dose 81 MG; Start 09/12/18 at 09:00 Atorvastatin Calcium (Lipitor) 20 mg QHS PO Last administered on 09/13/18 20:12; Admin Dose 20 MG; Start 09/11/18 at 21:00 Carvedilol (Coreg) 25 mg BID PO Last administered on 09/14/18 08:39; Admin Dose 25 MG; Start 09/11/18 at 21:00 Hydralazine HCl (Apresoline) 50 mg Q8 PO Last administered on 09/14/18 05:27; Admin Dose 50 MG; Start 09/11/18 at 22:00 Isosorbide Mononitrate (Imdur) 60 mg DAILY PO Last administered on 09/14/18 08:39; Admin Dose 60 MG; Start 09/12/18 at 09:00 Latanoprost (Xalatan) 1 drop QHS BOTH EYES Last administered on 09/13/18 20:12; Admin Dose 1 DROP; Start 09/11/18 at 21:00 Levothyroxine Sodium (Synthroid) 75 mcg BEFORE BREAKFAST PO Last administered on 09/14/18 05:27; Admin Dose 75 MCG; Start 09/12/18 at 07:00 Nateglinide (Starlix) 180 mg AC MEALS PO Last administered on 09/14/18 08:38; Admin Dose 180 MG; Start 09/11/18 at 17:25 Ticagrelor (Brilinta) 90 mg Q12 PO Last administered on 09/14/18 08:55; Admin Dose 90 MG; Start 09/11/18 at 21:00 Diagnostic Test (Pha) (Accu-Chek) 1 ea AC MEALS AND BEDTIME XX Last administered on 09/14/18 07:25; Admin Dose 1 EA; Start 09/11/18 at 17:25 Ceftriaxone Sodium 50 ml @ 100 mls/hr DAILY IVPB Last administered on 08/19 08:38; Admin Dose 100 MLS/HR; Start 09/11/18 at 15:30 Albuterol/ Ipratropium (Duoneb) 3 ml Q4H RESP THERAPY HHN Last administered on 09/14/18 09:17; Admin Dose 3 ML; Start 09/11/18 at 17:00 Azithromycin (Zithromax) 250 mg DAILY PO Last administered on 09/14/18 08:39; Admin Dose 250 MG; Start 09/14/18 at 09:00 MERT BENITEZ MD Sep 14, 2018 10:11
--- NOTE | 2018-09-14 11:16 | CONS ---
Assessment/Plan Assessment/Plan Assessment/Plan (Daily) Assessment and recommendations; 1. Patient admitted with recurrent shortness of breath due to underlying cardiomyopathy leading to his recurrent CHF. 2. History of transcutaneous aortic valve replacement in the past. 3. History of cardiac arrhythmia, post pacemaker placement 4. Chronic renal insufficiency. 5. Possibly acute bronchitis. 6. Anemia and thrombocytopenia. 7. Diabetes and hypertension. 8. Nonspecific nodules seen on CT imaging of the chest, difficult to make out the etiology, possibly representing areas of pulmonary edema versus patchy pneumonia. Continue current supportive care. Add Lasix 40 mg orally daily. Because of multiple comorbidities including severe cardiomyopathy, recurrent CHF, chronic renal insufficiency, anemia, thrombocytopenia, patient would be a poor candidate for any further workup regarding pulmonary nodules even if they are malignant as he is under no physical condition to undergo lung biopsy and if the lesions heel turner to be malignant to undergo any kind of treatment. Consultation Date/Type/Reason Admit Date/Time Sep 12, 2018 at 09:28 Initial Consult Date 09/13/18 Type of Consult Pulmonary pulmonary consult requested for evaluation of hypoxemia. Patient is a very pleasant 83-year-old gentleman who came into the hospital with a few days history of increasing shortness of breath. Patient denies any chest pain, wheezing, cough, sputum production hemoptysis, any fever or chills. Upon evaluation further workup was done including a chest x-ray as well as CT chest and BNP level which are consistent with exacerbation of underlying cardiomyopathy with CHF. Patient feeling somewhat better since admission. Complains of chronic dyspnea on exertion. Past medical history; 1. Cardiomyopathy with EF of around 25%. 2. Chronic renal insufficiency. 3. History of diabetes and hypertension. 4. Status post transcutaneous aortic valve replacement. 5. History of cardiac arrhythmia, status post pacemaker placement in the past. 6. History of appendectomy. Medications; reviewed. Allergies; none. Social history; patient never smoked. No stable alcohol or drug abuse. Family history; patient is single. 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 Review of systems; denies any headache, visual changes, sinus symptoms. Any chest pain or angina. Shortness of breath has improved since admission. Complains of chronic dyspnea on exertion. Complains of chronic orthopnea. Denies any abdominal pain, nausea vomiting. Any melena or hematochezia. Any urinary symptoms. Denies any weight loss. Denies any weight gain. General exam; elderly male, awake alert, currently in no distress. Looks younger than stated age. Requesting Provider: MERT BENITEZ MD Date/Time of Note DATE: 09/14/18 TIME: 11:13 24 HR Interval Summary Free Text/Dictation Patient's condition is stable. Denies any shortness of breath at rest. Denies any angina, coughing, wheezing, sputum production. General exam; elderly male, awake alert, laying comfortably in bed. Currently in no distress. Exam/Review of Systems Exam Vitals Vital Signs Date Temp Pulse Resp B/P (MAP) Pulse Ox O2 O2 Flow FiO2 Time Delivery Rate 09/14/18 74 18 98 Nasal 2.0 09:27 Cannula 09/14/18 98.5 141/65 07:45 (90) 09/12/18 17:13 Intake and Output 09/13/18 09/13/18 09/14/18 1515:00 23:00 07:00 IntakeIntake Total 800 ml 300 ml OutputOutput Total 1000 ml 425 ml BalanceBalance -200 ml -125 ml Exam H EENT exam; supple neck, positive JVD. No lymphadenopathy. Midline trachea. No thyromegaly. Patient has carious teeth. Chest exam; diminished breath sounds bilateral. No added sounds. S1-S2 audible, no murmurs. Pacemaker in left chest wall. Regular rhythm. Abdomen exam; soft, nondistended. No organomegaly. Bowel sounds audible. Extremity exam; no peripheral edema clubbing. 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 Results Result Diagram: 09/12/18 0747 09/14/18 0643 Results 24hrs Laboratory Tests Test 09/13/18 12:30 09/13/18 17:24 09/13/18 20:12 09/14/18 06:43 Urine Color STRAW Urine Clarity CLEAR Urine pH 5.0 Urine Specific 1.008 [place] Urine Ketones NEGATIVE Urine Nitrite NEGATIVE Urine Bilirubin NEGATIVE Urine Urobilinogen NEGATIVE Urine Leukocyte NEGATIVE Esterase Urine Hemoglobin NEGATIVE Urine Glucose NEGATIVE Urine Total Protein NEGATIVE Bedside Glucose 88 97 Sodium Level 143 Potassium Level 3.4 L Chloride Level 101 Carbon Dioxide Level 26 Anion Gap 16 H Blood Urea Nitrogen 43 H Creatinine 2.30 H Est Glomerular Filtrat Rate mL/min Glucose Level 105 Calcium Level 9.3 Test 09/14/18 08:16 Bedside Glucose 106 Medications Medication Current Medications IV Flush (NS 3 ml) 3 ml PER PROTOCOL IV ; Start 09/11/18 at 15:00 Ondansetron HCl (Zofran Inj) 4 mg Q6H PRN IV NAUSEA/VOMITING; Start 09/11/18 at 15:00 Acetaminophen (Tylenol Tab) 650 mg Q6H PRN PO .PAIN 1-3 OR TEMP Last administered on 09/13/18 23:39; Admin Dose 650 MG; Start 09/11/18 at 15:00 Acetaminophen/ Hydrocodone Bitart ([place] (5/325)) 1 tab Q6H PRN PO .MOD PAIN 4- 6; Start 09/11/18 at 15:00 Docusate Sodium (Colace) 100 mg Q12H PRN PO .CONSTIPATION; Start 09/11/18 at 15:00 Pantoprazole (Protonix Tab) 40 mg DAILY@06 PO Last administered on 09/14/18 05:27; Admin Dose 40 MG; Start 09/12/18 at 06:00 Allopurinol (Zyloprim) 100 mg DAILY PO Last administered on 09/14/18 08:39; Admin Dose 100 MG; Start 09/12/18 at 09:00 Aspirin (Halfprin) 81 mg DAILY PO Last administered on 09/14/18 08:39; Admin Dose 81 MG; Start 09/12/18 at 09:00 Atorvastatin Calcium (Lipitor) 20 mg QHS PO Last administered on 09/13/18 20:12; Admin Dose 20 MG; Start 09/11/18 at 21:00 Carvedilol (Coreg) 25 mg BID PO Last administered on 09/14/18 08:39; Admin Dose 25 MG; Start 09/11/18 at 21:00 Hydralazine HCl (Apresoline) 50 mg Q8 PO Last administered on 09/14/18 05:27; Admin Dose 50 MG; Start 09/11/18 at 22:00 Isosorbide Mononitrate (Imdur) 60 mg DAILY PO Last administered on 09/14/18 08:39; Admin Dose 60 MG; Start 09/12/18 at 09:00 Latanoprost (Xalatan) 1 drop QHS BOTH EYES Last administered on 09/13/18 20:12; Admin Dose 1 DROP; Start 09/11/18 at 21:00 Levothyroxine Sodium (Synthroid) 75 mcg BEFORE BREAKFAST PO Last administered on 09/14/18 05:27; Admin Dose 75 MCG; Start 09/12/18 at 07:00 Nateglinide (Starlix) 180 mg AC MEALS PO Last administered on 09/14/18 08:38; Admin Dose 180 MG; Start 09/11/18 at 17:25 Ticagrelor (Brilinta) 90 mg Q12 PO Last administered on 09/14/18 08:55; Admin Dose 90 MG; Start 09/11/18 at 21:00 Diagnostic Test (Pha) (Accu-Chek) 1 ea AC MEALS AND BEDTIME XX Last administered on 09/14/18 07:25; Admin Dose 1 EA; Start 09/11/18 at 17:25 Ceftriaxone Sodium 50 ml @ 100 mls/hr DAILY IVPB Last administered on 09/14/18 08:38; Admin Dose 100 MLS/HR; Start 09/11/18 at 15:30 Albuterol/ Ipratropium (Duoneb) 3 ml Q4H RESP THERAPY HHN Last administered on 09/14/18 09:17; Admin Dose 3 ML; Start 09/11/18 at 17:00 Azithromycin (Zithromax) 250 mg DAILY PO Last administered on 09/14/18 08:39; Admin Dose 250 MG; Start 09/14/18 at 09:00 Guaifenesin/ Dextromethorphan (Robitussin Dm Liquid Cup) 10 ml Q4H PRN PO COUGH; Start 09/14/18 at 10:30 CARMELO JOYA Sep 14, 2018 11:16
[2018-09-14] MEDS: FUROSEMIDE 40 MG TAB PO SCH (12:20)
--- NOTE | 2018-09-14 12:26 | CONS ---
Assessment/Plan Assessment/Plan Hospital Course (Demo Recall) No acute changes overnight patient looks comfortable, no fevers MRSA swab negative Antimicrobials: Zithromax, Rocephin Physical examination: This is a well-developed obese elderly man who is alert in no distress. Head atraumatic normocephalic sclera nonicteric. Neck is supple. Chest rise symmetrical breath sounds diminished bases. Heart: S1-S2. Abdomen soft bowel sounds present. Extremities without cyanosis Assessment: 1. Acute hypoxemia on admission 2. Possible pneumonia 3. Cardiomyopathy with CHF exacerbation 4. Acute possibly on chronic kidney disease 5. Coronary artery disease with a history of aortic valve replacement 6. Diabetes 7. Hypertension Plan: Clinically unchanged, will complete short course with abx, pulmonary recommendations noted==> pt is not a candidate for lung bx as well as for chemotherapy if he has malignancy Consultation Date/Type/Reason Admit Date/Time Sep 12, 2018 at 09:28 Initial Consult Date 09/13/18 Type of Consult id Requesting Provider: MERT BENITEZ MD Date/Time of Note DATE: 09/14/18 TIME: 12:25 Exam/Review of Systems Exam Vitals Vital Signs Date Temp Pulse Resp B/P (MAP) Pulse Ox O2 O2 Flow FiO2 Time Delivery Rate 09/14/18 97.7 85 19 126/62 98 11:16 (83) 09/14/18 Nasal 2.0 09:27 Cannula 09/12/18 28 17:13 Intake and Output 09/13/18 09/13/18 09/14/18 1515:00 23:00 07:00 IntakeIntake Total 800 ml 300 ml OutputOutput Total 1000 ml 425 ml BalanceBalance -200 ml -125 ml Results Result Diagram: 09/12/18 0747 09/14/18 0643 Results 24hrs Laboratory Tests Test 09/13/18 12:30 09/13/18 17:24 09/13/18 20:12 09/14/18 06:43 Urine Color STRAW Urine Clarity CLEAR Urine pH 5.0 Urine Specific 1.008 [place] Urine Ketones NEGATIVE Urine Nitrite NEGATIVE Urine Bilirubin NEGATIVE Urine Urobilinogen NEGATIVE Urine Leukocyte NEGATIVE Esterase Urine Hemoglobin NEGATIVE Urine Glucose NEGATIVE Urine Total Protein NEGATIVE Bedside Glucose 88 97 Sodium Level 143 Potassium Level 3.4 L Chloride Level 101 Carbon Dioxide Level 26 Anion Gap 16 H Blood Urea Nitrogen 43 H Creatinine 2.30 H Est Glomerular Filtrat Rate mL/min Glucose Level 105 Calcium Level 9.3 Test 09/14/18 08:16 09/14/18 12:18 Bedside Glucose 106 163 Medications Medication Current Medications IV Flush (NS 3 ml) 3 ml PER PROTOCOL IV ; Start 09/11/18 at 15:00 Ondansetron HCl (Zofran Inj) 4 mg Q6H PRN IV NAUSEA/VOMITING; Start 09/11/18 at 15:00 Acetaminophen (Tylenol Tab) 650 mg Q6H PRN PO .PAIN 1-3 OR TEMP Last administered on 09/13/18 23:39; Admin Dose 650 MG; Start 09/11/18 at 15:00 Acetaminophen/ Hydrocodone Bitart ([place] (5/325)) 1 tab Q6H PRN PO .MOD PAIN 4- 6; Start 09/11/18 at 15:00 Docusate Sodium (Colace) 100 mg Q12H PRN PO .CONSTIPATION; Start 09/11/18 at 15:00 Pantoprazole (Protonix Tab) 40 mg DAILY@06 PO Last administered on 09/14/18 05:27; Admin Dose 40 MG; Start 09/12/18 at 06:00 Allopurinol (Zyloprim) 100 mg DAILY PO Last administered on 09/14/18 08:39; Admin Dose 100 MG; Start 09/12/18 at 09:00 Aspirin (Halfprin) 81 mg DAILY PO Last administered on 09/14/18 08:39; Admin Dose 81 MG; Start 09/12/18 at 09:00 Atorvastatin Calcium (Lipitor) 20 mg QHS PO Last administered on 09/13/18 20:12; Admin Dose 20 MG; Start 09/11/18 at 21:00 Carvedilol (Coreg) 25 mg BID PO Last administered on 09/14/18 08:39; Admin Dose 25 MG; Start 09/11/18 at 21:00 Hydralazine HCl (Apresoline) 50 mg Q8 PO Last administered on 09/14/18 05:27; Admin Dose 50 MG; Start 09/11/18 at 22:00 Isosorbide Mononitrate (Imdur) 60 mg DAILY PO Last administered on 09/14/18 08:39; Admin Dose 60 MG; Start 09/12/18 at 09:00 Latanoprost (Xalatan) 1 drop QHS BOTH EYES Last administered on 09/13/18 20:12; Admin Dose 1 DROP; Start 09/11/18 at 21:00 Levothyroxine Sodium (Synthroid) 75 mcg BEFORE BREAKFAST PO Last administered on 09/14/18 05:27; Admin Dose 75 MCG; Start 09/12/18 at 07:00 Nateglinide (Starlix) 180 mg AC MEALS PO Last administered on 09/14/18 08:38; Admin Dose 180 MG; Start 09/11/18 at 17:25 Ticagrelor (Brilinta) 90 mg Q12 PO Last administered on 09/14/18 08:55; Admin Dose 90 MG; Start 09/11/18 at 21:00 Diagnostic Test (Pha) (Accu-Chek) 1 ea AC MEALS AND BEDTIME XX Last administered on 09/14/18 07:25; Admin Dose 1 EA; Start 09/11/18 at 17:25 Ceftriaxone Sodium 50 ml @ 100 mls/hr DAILY IVPB Last administered on 09/14/18 08:38; Admin Dose 100 MLS/HR; Start 09/11/18 at 15:30 Albuterol/ Ipratropium (Duoneb) 3 ml Q4H RESP THERAPY HHN Last administered on 09/14/18 09:17; Admin Dose 3 ML; Start 09/11/18 at 17:00 Azithromycin (Zithromax) 250 mg DAILY PO Last administered on 09/14/18 08:39; Admin Dose 250 MG; Start 09/14/18 at 09:00 Guaifenesin/ Dextromethorphan (Robitussin Dm Liquid Cup) 10 ml Q4H PRN PO COUGH; Start 09/14/18 at 10:30 Furosemide (Lasix) 40 mg DAILY PO ; Start 09/14/18 at 11:30 DOMONIQUE ANGELO NP Sep 14, 2018 12:26
[2018-09-14] MEDS: GUAIFENESIN/DM 5ML CUP PO PRN (12:27)
--- NOTE | 2018-09-14 18:52 | CONS ---
Assessment/Plan Assessment/Plan Hospital Course (Demo Recall) IMPRESSION: 1. Congestive heart failure exacerbation, systolic, acute on chronic.-neg trop x 3 2. Cardiomyopathy with decreased left ventricular ejection fraction, last known to be approximately 30% by echo in 04/2018. 25% by echo this admit 3. History of PTCA and stent placement, most recently to right coronary artery and left main in 06/2017. 4. History of transcatheter aortic valve replacement or TAVR in 10/2017.-proper function by echo this admit 5. Hypertension. 6. Dyslipidemia. 7. Chronic kidney disease, not on hemodialysis. 8. Shortness of breath secondary to #1. 9. Fevers 10. nodules PLan: -Tele -Continue asa/brilinta -Continue coreg/hydralazine/imdur as tolerated only with possible need to decrease dose -Lasix now resumed daily, Follow volume status and creatnine closely -Continue abx's and f/u cx data -Lexiscan in am to asess for any ischemia lending to recurrent CHF exacerbations and MURRAY Consultation Date/Type/Reason Admit Date/Time Sep 12, 2018 at 09:28 Initial Consult Date 09/13/18 Type of Consult Cardiology Reason for Consultation CHF Requesting Provider: MERT BENITEZ MD Date/Time of Note DATE: 09/14/18 TIME: 18:44 Exam/Review of Systems Vital Signs Vitals Vital Signs Date Temp Pulse Resp B/P (MAP) Pulse Ox O2 O2 Flow FiO2 Time Delivery Rate 09/14/18 70 18 98 Nasal 2.0 16:25 Cannula 09/14/18 98.6 103/56 16:00 (72) 09/12/18 17:13 Intake and Output 09/13/18 09/13/18 09/14/18 1515:00 23:00 07:00 IntakeIntake Total 800 ml 300 ml OutputOutput Total 1000 ml 425 ml BalanceBalance -200 ml -125 ml Exam Exam Review of Systems: CONSTITUTIONAL: No fevers, chills. PULMONARY: mild sob ongoing CARDIOVASCULAR: No chest pain/palpitations GASTROINTESTINAL: No nausea/vomiting. GENITOURINARY: No hematuria/dysuria. MUSCULOSKELETAL: No myagias/arthalgias. PSYCHIATRIC: The patient denies depression. NEUROLOGIC: No weakness Constitutional: alert Psych: no complaints Head: normocephalic ENMT: mucosa pink and moist Neck: supple, jvd (9 cm water) Respiratory: clear to auscultation Cardiovascular: regular rate and rhythm Gastrointestinal: soft, non-tender Musculoskeletal: muscle tone (normal) Extremities: edema (none) Neurological: other (NO focal deficits) Labs Result Diagram: 09/12/18 0747 09/14/18 0643 Results 24hrs Laboratory Tests Test 09/13/18 20:12 09/14/18 06:43 09/14/18 08:16 09/14/18 12:18 Bedside Glucose 97 106 163 Sodium Level 143 Potassium Level 3.4 L Chloride Level 101 Carbon Dioxide Level 26 Anion Gap 16 H Blood Urea Nitrogen 43 H Creatinine 2.30 H Est Glomerular Filtrat Rate mL/min Glucose Level 105 Calcium Level 9.3 Test 09/14/18 17:25 Bedside Glucose 125 Medications Medications Current Medications IV Flush (NS 3 ml) 3 ml PER PROTOCOL IV ; Start 09/11/18 at 15:00 Ondansetron HCl (Zofran Inj) 4 mg Q6H PRN IV NAUSEA/VOMITING; Start 09/11/18 at 15:00 Acetaminophen (Tylenol Tab) 650 mg Q6H PRN PO .PAIN 1-3 OR TEMP Last administered on 09/13/18at 23:39; Admin Dose 650 MG; Start 09/11/18 at 15:00 Acetaminophen/ Hydrocodone Bitart ([place] (5/325)) 1 tab Q6H PRN PO .MOD PAIN 4-6; Start 09/11/18 at 15:00 Docusate Sodium (Colace) 100 mg Q12H PRN PO .CONSTIPATION; Start 09/11/18 at 15:00 Pantoprazole (Protonix Tab) 40 mg DAILY@06 PO Last administered on 09/14/18at 05:27; Admin Dose 40 MG; Start 09/12/18 at 06:00 Allopurinol (Zyloprim) 100 mg DAILY PO Last administered on 09/14/18at 08:39; Admin Dose 100 MG; Start 09/12/18 at 09:00 Aspirin (Halfprin) 81 mg DAILY PO Last administered on 09/14/18at 08:39; Admin Dose 81 MG; Start 09/12/18 at 09:00 Atorvastatin Calcium (Lipitor) 20 mg QHS PO Last administered on 3/27/19at 20:12; Admin Dose 20 MG; Start 09/11/18 at 21:00 Carvedilol (Coreg) 25 mg BID PO Last administered on 09/14/18 08:39; Admin Dose 25 MG; Start 09/11/18 at 21:00 Hydralazine HCl (Apresoline) 50 mg Q8 PO Last administered on 09/14/18 05:27; Admin Dose 50 MG; Start 09/11/18 at 22:00 Isosorbide Mononitrate (Imdur) 60 mg DAILY PO Last administered on 09/14/18 08:39; Admin Dose 60 MG; Start 09/12/18 at 09:00 Latanoprost (Xalatan) 1 drop QHS BOTH EYES Last administered on 09/13/18 20:12; Admin Dose 1 DROP; Start 09/11/18 at 21:00 Levothyroxine Sodium (Synthroid) 75 mcg BEFORE BREAKFAST PO Last administered on 09/14/18 05:27; Admin Dose 75 MCG; Start 09/12/18 at 07:00 Nateglinide (Starlix) 180 mg AC MEALS PO Last administered on 09/14/18 17:26; Admin Dose 180 MG; Start 09/11/18 at 17:25 Ticagrelor (Brilinta) 90 mg Q12 PO Last administered on 09/14/18 08:55; Admin Dose 90 MG; Start 09/11/18 at 21:00 Diagnostic Test (Pha) (Accu-Chek) 1 ea AC MEALS AND BEDTIME XX Last administered on 09/14/18 17:29; Admin Dose 1 EA; Start 09/11/18 at 17:25 Ceftriaxone Sodium 50 ml @ 100 mls/hr DAILY IVPB Last administered on 09/14/18 08:38; Admin Dose 100 MLS/HR; Start 09/11/18 at 15:30 Albuterol/ Ipratropium (Duoneb) 3 ml Q4H RESP THERAPY HHN Last administered on 09/14/18 16:15; Admin Dose 3 ML; Start 09/11/18 at 17:00 Azithromycin (Zithromax) 250 mg DAILY PO Last administered on 09/14/18 08:39; Admin Dose 250 MG; Start 09/14/18 at 09:00 Guaifenesin/ Dextromethorphan (Robitussin Dm Liquid Cup) 10 ml Q4H PRN PO COUGH Last administered on 09/14/18at 12:27; Admin Dose 10 ML; Start 09/14/18 at 10:30 Furosemide (Lasix) 40 mg DAILY PO Last administered on 09/14/18at 12:20; Admin Dose 40 MG; Start 09/14/18 at 11:30 ELEANOR ROLDAN Sep 14, 2018 18:51
[2018-09-14] MEDS: LATANOPROST 0.005% 2.5 ML OPH BOTH EYES SCH (20:10)
[2018-09-14] MEDS: ATORVASTATIN 20 MG TAB PO SCH (20:10)
[2018-09-15] VITALS (12 sets, daily range): BP systolic 110–129; BP diastolic 55–70; PULSE 71–88; RESP 18–20
[2018-09-15] MEDS: ALBUTEROL/IPRATROPIUM (NEB) 3 ML AMP HHN SCH ×6 (00:28→20:00)
[2018-09-15] MEDS: PANTOPRAZOLE (EC) 40 MG TAB PO SCH (05:37)
[2018-09-15] MEDS: LEVOTHYROXINE 75 MCG TAB PO SCH (05:37)
[2018-09-15] MEDS: NATEGLINIDE 60 MG TAB PO SCH ×4 (07:25→17:37)
[2018-09-15] MEDS: ACCU-CHEK XX SCH ×4 (07:52→20:54)
[2018-09-15] MEDS: AZITHROMYCIN 250 MG TAB PO SCH (08:12)
[2018-09-15] MEDS: ALLOPURINOL 100 MG TAB PO SCH (08:12)
[2018-09-15] MEDS: CEFTRIAXONE 1 GM/50 ML (PMX) 50 ML IVPB SCH (08:12)
[2018-09-15] MEDS: FUROSEMIDE 40 MG TAB PO SCH (08:13)
[2018-09-15] MEDS: TICAGRELOR 90 MG TABLET PO SCH ×2 (08:16→20:53)
[2018-09-15] MEDS: ISOSORBIDE MONONITRATE(SR)60 MG TAB PO SCH (08:19)
[2018-09-15] MEDS: ASPIRIN (EC) 81 MG TAB PO SCH (08:19)
--- NOTE | 2018-09-15 09:59 | PN ---
ROSEANNE CABRALESA 09/15/18 0959: Date/Time of Note Date/Time of Note DATE: 09/15/18 TIME: 09:54 Assessment/Plan VTE Prophylaxis Risk score (from [facility])>0 risk: 4 SCD applied (from [facility]): No SCD contraindicated: other Pharmacological prophylaxis: heparin Lines/Catheters IV Catheter Type (from [facility]): [place] Urinary Cath still in place: No Assessment/Plan Hospital Course 1. Shortness of breath likely secondary to congestive heart failure exacerbation, acute on chronic. However, the patient also had low-grade fevers. We cannot rule out underlying pneumonia. CT of the chest shows Numerous nodular consolidative opacities throughout both lungs. These probably represent a multifocal pneumonia, possibly atypical, however other entities such as septic emboli or metastatic disease cannot be excluded. 2. History of acute on chronic congestive heart failure. 3. Chronic kidney disease stage III. now with KEN due to diuresis 4. Elevated BNP due to congestive heart failure. 5. Diabetes. 6. Hypertension. 7. Hyperlipidemia. 8. 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 9. History of transaortic valve replacement. 10. 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 Assessment/Plan -Continue with Rocephin/azithromycin, - hold diuretics due to rising Cr -stress test today -Patient is not a candidate for any kind of biopsy per pulmonary due to her advanced comorbidities - monitor Cr. daily -Echo worsening EF of 25% -CEA, CA 189 and PSA wnl -Agree with aspirin statin Brilinta Coreg - V/Q negative for PE - GI proph . Protonicx PO -DVT prophylaxis Heparin 5000 BID sq - fu with pulmonary /cardiac recs/ID Result Diagram: 09/15/18 0754 09/15/18 0754 Results 24hrs Laboratory Tests Test 09/14/18 12:18 09/14/18 17:25 09/14/18 20:09 09/15/18 07:53 Bedside Glucose 163 125 227 H 104 Test 09/15/18 07:54 White Blood Count 5.3 Red Blood Count 4.06 L Hemoglobin 10.5 L Hematocrit 32.9 L Mean Corpuscular 81.0 L Volume Mean Corpuscular 25.9 L Hemoglobin Mean Corpuscular 31.9 L Hemoglobin Concent Red Cell 16.8 H Distribution Width Platelet Count 202 # Mean Platelet Volume 10.6 H Immature 1.500 H Granulocytes % Neutrophils % 49.9 Lymphocytes % 34.8 Monocytes % 11.3 H Eosinophils % 2.3 Basophils % 0.2 Nucleated Red Blood 0.0 Cells % Immature 0.080 H Granulocytes # Neutrophils # 2.6 Lymphocytes # 1.8 Monocytes # 0.6 Eosinophils # 0.1 Basophils # 0.0 Nucleated Red Blood 0.0 Cells # Sodium Level 142 Potassium Level 4.1 Chloride Level 102 Carbon Dioxide Level 27 Anion Gap 13 Blood Urea Nitrogen 49 H Creatinine 2.35 H Est Glomerular Filtrat Rate mL/min Glucose Level 103 Calcium Level 9.7 Phosphorus Level 4.5 Magnesium Level 2.5 Subjective 24 Hr Interval Summary Respiratory: shortness of breath Cardiovascular: chest pain; No no complaints, No edema, No lightheadedness, No orthopenea, No palpitations, No paroxysmal nocturnal dyspnea, No other Exam/Review of Systems Exam Vitals Vital Signs Date Temp Pulse Resp B/P (MAP) Pulse Ox O2 O2 Flow FiO2 Time Delivery Rate 09/15/18 71 08:15 09/15/18 Nasal 2.0 07:52 Cannula 09/15/18 98.9 20 121/65 96 07:46 (83) 09/12/18 17:13 Intake and Output 09/14/18 09/14/18 09/15/18 1515:00 23:00 07:00 IntakeIntake Total 375 ml 300 ml OutputOutput Total 400 ml 700 ml BalanceBalance -25 ml -400 ml Constitutional: alert, oriented Respiratory: diminished breath sounds Cardiovascular: regular rate and rhythm Gastrointestinal: soft Extremities: edema; No normal pulses, No calf tenderness, No cyanosis, No clubbing, No pitting pedal edema, No palpable cord, No tenderness, No other Results Result Diagram: 09/15/18 0754 09/15/18 0754 Results 24hrs Laboratory Tests Test 09/14/18 12:18 09/14/18 17:25 09/14/18 20:09 09/15/18 07:53 Bedside Glucose 163 125 227 H 104 Test 09/15/18 07:54 White Blood Count 5.3 Red Blood Count 4.06 L Hemoglobin 10.5 L Hematocrit 32.9 L Mean Corpuscular 81.0 L Volume Mean Corpuscular 25.9 L Hemoglobin Mean Corpuscular 31.9 L Hemoglobin Concent Red Cell 16.8 H Distribution Width Platelet Count 202 # Mean Platelet Volume 10.6 H Immature 1.500 H Granulocytes % Neutrophils % 49.9 Lymphocytes % 34.8 Monocytes % 11.3 H Eosinophils % 2.3 Basophils % 0.2 Nucleated Red Blood 0.0 Cells % Immature 0.080 H Granulocytes # Neutrophils # 2.6 Lymphocytes # 1.8 Monocytes # 0.6 Eosinophils # 0.1 Basophils # 0.0 Nucleated Red Blood 0.0 Cells # Sodium Level 142 Potassium Level 4.1 Chloride Level 102 Carbon Dioxide Level 27 Anion Gap 13 Blood Urea Nitrogen 49 H Creatinine 2.35 H Est Glomerular Filtrat Rate mL/min Glucose Level 103 Calcium Level 9.7 Phosphorus Level 4.5 Magnesium Level 2.5 Medications Medication Current Medications IV Flush (NS 3 ml) 3 ml PER PROTOCOL IV ; Start 09/11/18 at 15:00 Ondansetron HCl (Zofran Inj) 4 mg Q6H PRN IV NAUSEA/VOMITING; Start 09/11/18 at 15:00 Acetaminophen (Tylenol Tab) 650 mg Q6H PRN PO .PAIN 1-3 OR TEMP Last adm inistered on 09/13/18at 23:39; Admin Dose 650 MG; Start 09/11/18 at 15:00 Acetaminophen/ Hydrocodone Bitart ([place] (5/325)) 1 tab Q6H PRN PO .MOD PAIN 4- 6; Start 09/11/18 at 15:00 Docusate Sodium (Colace) 100 mg Q12H PRN PO .CONSTIPATION; Start 09/11/18 at 15:00 Pantoprazole (Protonix Tab) 40 mg DAILY@06 PO Last administered on 09/15/18at 05:37; Admin Dose 40 MG; Start 09/12/18 at 06:00 Allopurinol (Zyloprim) 100 mg DAILY PO Last administered on 09/15/18at 08:12; Admin Dose 100 MG; Start 09/12/18 at 09:00 Aspirin (Halfprin) 81 mg DAILY PO Last administered on 09/15/18at 08:19; Admin Dose 81 MG; Start 09/12/18 at 09:00 Atorvastatin Calcium (Lipitor) 20 mg QHS PO Last administered on 09/14/18at 20:10; Admin Dose 20 MG; Start 09/11/18 at 21:00 Carvedilol (Coreg) 25 mg BID PO Last administered on 09/15/18 08:19; Admin Dose 25 MG; Start 09/11/18 at 21:00 Hydralazine HCl (Apresoline) 50 mg Q8 PO Last administered on 09/15/18 05:37; Admin Dose 50 MG; Start 09/11/18 at 22:00 Isosorbide Mononitrate (Imdur) 60 mg DAILY PO Last administered on 09/15/18 08:19; Admin Dose 60 MG; Start 09/12/18 at 09:00 Latanoprost (Xalatan) 1 drop QHS BOTH EYES Last administered on 09/14/18 20:10; Admin Dose 1 DROP; Start 09/11/18 at 21:00 Levothyroxine Sodium (Synthroid) 75 mcg BEFORE BREAKFAST PO Last administered on 09/15/18 05:37; Admin Dose 75 MCG; Start 09/12/18 at 07:00 Nateglinide (Starlix) 180 mg AC MEALS PO Last administered on 09/14/18 17:26; Admin Dose 180 MG; Start 09/11/18 at 17:25 Ticagrelor (Brilinta) 90 mg Q12 PO Last administered on 09/15/18 08:16; Admin Dose 90 MG; Start 09/11/18 at 21:00 Diagnostic Test (Pha) (Accu-Chek) 1 ea AC MEALS AND BEDTIME XX Last administ ered on 09/15/18 07:52; Admin Dose 1 EA; Start 09/11/18 at 17:25 Ceftriaxone Sodium 50 ml @ 100 mls/hr DAILY IVPB Last administered on 09/15/18 08:12; Admin Dose 100 MLS/HR; Start 09/11/18 at 15:30 Albuterol/ Ipratropium (Duoneb) 3 ml Q4H RESP THERAPY HHN Last administered on 09/15/18 04:23; Admin Dose 3 ML; Start 09/11/18 at 17:00 Azithromycin (Zithromax) 250 mg DAILY PO Last administered on 09/15/18 08:12; Admin Dose 250 MG; Start 09/14/18 at 09:00 Guaifenesin/ Dextromethorphan (Robitussin Dm Liquid Cup) 10 ml Q4H PRN PO COUGH Last administered on 09/14/18at 12:27; Admin Dose 10 ML; Start 09/14/18 at 10:30 Furosemide (Lasix) 40 mg DAILY PO Last administered on 09/15/18at 08:13; Admin Dose 40 MG; Start 09/14/18 at 11:30 MERT BENITEZ MD 09/15/18 1548: Assessment/Plan Assessment/Plan Assessment/Plan seen and examined with consumer loan manager abx stres test today lasix 40 per pulmon Result Diagram: 09/15/18 0754 09/15/18 0754 MYRA CABRALES Sep 15, 2018 09:59 MERT BENITEZ MD Sep 15, 2018 15:48
--- NOTE | 2018-09-15 10:33 | CONS ---
Assessment/Plan Assessment/Plan Assessment/Plan (Daily) Assessment and recommendations; 1. Patient admitted for shortness of breath due to recurrent CHF exacerbation with interval improvement. 2. History of trans-cutaneous aortic valve replacement in the past. 3. History of hypertension, chronic renal insufficiency, gout, diabetes and hypertension. 4. Acute bronchitis with interval improvement as well. 5. History of cardiac arrhythmia, status post pacemaker placement in the past. 6. Chronic mild anemia. Continue current supportive care. Patient scheduled for stress test today. Further recommendations per house repairer. Consultation Date/Type/Reason Admit Date/Time Sep 12, 2018 at 09:28 Initial Consult Date 09/13/18 Type of Consult Pulmonary pulmonary consult requested for evaluation of hypoxemia. Patient is a very pleasant 83-year-old gentleman who came into the hospital with a few days history of increasing shortness of breath. Patient denies any chest pain, wheezing, cough, sputum production hemoptysis, any fever or chills. Upon evaluation further workup was done including a chest x-ray as well as CT chest and BNP level which are consistent with exacerbation of underlying cardiomyopathy with CHF. Patient feeling somewhat better since admission. Complains of chronic dyspnea on exertion. Past medical history; 1. Cardiomyopathy with EF of around 25%. 2. Chronic renal insufficiency. 3. History of diabetes and hypertension. 4. Status post transcutaneous aortic valve replacement. 5. History of cardiac arrhythmia, status post pacemaker placement in the past. 6. History of appendectomy. Medications; reviewed. Allergies; none. Social history; patient never smoked. No stable alcohol or drug abuse. Family history; patient is single. 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 Review of systems; denies any headache, visual changes, sinus symptoms. Any chest pain or angina. Shortness of breath has improved since admission. Complains of chronic dyspnea on exertion. Complains of chronic orthopnea. Denies any abdominal pain, nausea vomiting. Any melena or hematochezia. Any urinary symptoms. Denies any weight loss. Denies any weight gain. General exam; elderly male, awake alert, currently in no distress. Looks younger than stated age. Requesting Provider: MERT BENITEZ MD Date/Time of Note DATE: 09/15/18 TIME: 10:30 24 HR Interval Summary Free Text/Dictation Patient's condition is stable. Remains awake and alert. Denies any shortness of breath at rest. Any chest pain. Coughing has improved. Denies any sputum production. General exam; elderly male, lying comfortably in bed. Awake and alert. Currently in no distress. Exam/Review of Systems Exam Vitals Vital Signs Date Temp Pulse Resp B/P (MAP) Pulse Ox O2 O2 Flow FiO2 Time Delivery Rate 09/15/18 73 16 96 Nasal 3.0 10:02 Cannula 09/15/18 98.9 121/65 07:46 (83) 09/12/18 28 17:13 Intake and Output 09/14/18 09/14/18 09/15/18 1515:00 23:00 07:00 IntakeIntake Total 375 ml 300 ml OutputOutput Total 400 ml 700 ml BalanceBalance -25 ml -400 ml Exam H EENT exam; supple neck, positive JVD. No lymphadenopathy. Midline trachea. No thyromegaly. No neck masses. Patient has a multiple carious teeth. Chest exam; diminished breath sounds bilaterally. No added sounds. S1-S2 audible, no murmurs. Regular rhythm. Pacemaker in left chest wall. Abdomen exam; soft, no organomegaly. Nontender. Bowel sounds audible. Extremity exam; peripheral edema clubbing. ORCHARDIST exam; no focal deficit. Results Result Diagram: 09/15/18 0754 09/15/18 0754 Results 24hrs Laboratory Tests Test 09/14/18 12:18 09/14/18 17:25 09/14/18 20:09 09/15/18 07:53 Bedside Glucose 163 125 227 H 104 Test 09/15/18 07:54 White Blood Count 5.3 Red Blood Count 4.06 L Hemoglobin 10.5 L Hematocrit 32.9 L Mean Corpuscular 81.0 L Volume Mean Corpuscular 25.9 L Hemoglobin Mean Corpuscular 31.9 L Hemoglobin Concent Red Cell 16.8 H Distribution Width Platelet Count 202 # Mean Platelet Volume 10.6 H Immature 1.500 H Granulocytes % Neutrophils % 49.9 Lymphocytes % 34.8 Monocytes % 11.3 H Eosinophils % 2.3 Basophils % 0.2 Nucleated Red Blood 0.0 Cells % Immature 0.080 H Granulocytes # Neutrophils # 2.6 Lymphocytes # 1.8 Monocytes # 0.6 Eosinophils # 0.1 Basophils # 0.0 Nucleated Red Blood 0.0 Cells # Sodium Level 142 Potassium Level 4.1 Chloride Level 102 Carbon Dioxide Level 27 Anion Gap 13 Blood Urea Nitrogen 49 H Creatinine 2.35 H Est Glomerular Filtrat Rate mL/min Glucose Level 103 Calcium Level 9.7 Phosphorus Level 4.5 Magnesium Level 2.5 Medications Medication Current Medications IV Flush (NS 3 ml) 3 ml PER PROTOCOL IV ; Start 09/11/18 at 15:00 Ondansetron HCl (Zofran Inj) 4 mg Q6H PRN IV NAUSEA/VOMITING; Start 09/11/18 at 15:00 Acetaminophen (Tylenol Tab) 650 mg Q6H PRN PO .PAIN 1-3 OR TEMP Last administered on 09/13/18 23:39; Admin Dose 650 MG; Start 09/11/18 at 15:00 Acetaminophen/ Hydrocodone Bitart ([place] (5/325)) 1 tab Q6H PRN PO .MOD PAIN 4- 6; Start 09/11/18 at 15:00 Docusate Sodium (Colace) 100 mg Q12H PRN PO .CONSTIPATION; Start 09/11/18 at 15:00 Pantoprazole (Protonix Tab) 40 mg DAILY@06 PO Last administered on 09/15/18 05:37; Admin Dose 40 MG; Start 09/12/18 at 06:00 Allopurinol (Zyloprim) 100 mg DAILY PO Last administered on 09/15/18 08:12; Admin Dose 100 MG; Start 09/12/18 at 09:00 Aspirin (Halfprin) 81 mg DAILY PO Last administered on 09/15/18 08:19; Admin Dose 81 MG; Start 09/12/18 at 09:00 Atorvastatin Calcium (Lipitor) 20 mg QHS PO Last administered on 09/14/18at 20:10; Admin Dose 20 MG; Start 09/11/18 at 21:00 Carvedilol (Coreg) 25 mg BID PO Last administered on 09/15/18 08:19; Admin Dose 25 MG; Start 09/11/18 at 21:00 Hydralazine HCl (Apresoline) 50 mg Q8 PO Last administered on 09/15/18 05:37; Admin Dose 50 MG; Start 09/11/18 at 22:00 Isosorbide Mononitrate (Imdur) 60 mg DAILY PO Last administered on 09/15/18 08:19; Admin Dose 60 MG; Start 09/12/18 at 09:00 Latanoprost (Xalatan) 1 drop QHS BOTH EYES Last administered on 09/14/18 20:10; Admin Dose 1 DROP; Start 09/11/18 at 21:00 Levothyroxine Sodium (Synthroid) 75 mcg BEFORE BREAKFAST PO Last administered on 09/15/18 05:37; Admin Dose 75 MCG; Start 09/12/18 at 07:00 Nateglinide (Starlix) 180 mg AC MEALS PO Last administered on 09/14/18 17:26; Admin Dose 180 MG; Start 09/11/18 at 17:25 Ticagrelor (Brilinta) 90 mg Q12 PO Last administered on 09/15/18 08:16; Admin Dose 90 MG; Start 09/11/18 at 21:00 Diagnostic Test (Pha) (Accu-Chek) 1 ea AC MEALS AND BEDTIME XX Last administered on 09/15/18 07:52; Admin Dose 1 EA; Start 09/11/18 at 17:25 Ceftriaxone Sodium 50 ml @ 100 mls/hr DAILY IVPB Last administered on 09/15/18 08:12; Admin Dose 100 MLS/HR; Start 09/11/18 at 15:30 Albuterol/ Ipratropium (Duoneb) 3 ml Q4H RESP THERAPY HHN Last administered on 09/15/18 10:01; Admin Dose 3 ML; Start 09/11/18 at 17:00 Azithromycin (Zithromax) 250 mg DAILY PO Last administered on 09/15/18 08:12; Admin Dose 250 MG; Start 09/14/18 at 09:00 Guaifenesin/ Dextromethorphan (Robitussin Dm Liquid Cup) 10 ml Q4H PRN PO COUGH Last administered on 09/14/18 12:27; Admin Dose 10 ML; Start 09/14/18 at 10:30 Furosemide (Lasix) 40 mg DAILY PO Last administered on 09/15/18 08:13; Admin Dose 40 MG; Start 09/14/18 at 11:30 Heparin Sodium (Porcine) (Heparin (5000 Units/1ml)) 5,000 unit BID SC ; Start 09/15/18 at 21:00 CARMELO JOYA Sep 15, 2018 10:33
--- NOTE | 2018-09-15 12:10 | CONS ---
Assessment/Plan Assessment/Plan Hospital Course (Demo Recall) No acute changes, no fevers MRSA swab negative Antimicrobials: Zithromax, Rocephin Physical examination: This is a well-developed obese elderly man who is alert in no distress. Head atraumatic normocephalic sclera nonicteric. Neck is supple. Chest rise symmetrical breath sounds diminished bases. Heart: S1-S2. Abdomen soft bowel sounds present. Extremities without cyanosis Assessment: 1. Acute hypoxemia on admission 2. Possible pneumonia 3. Cardiomyopathy with CHF exacerbation 4. Acute possibly on chronic kidney disease 5. Coronary artery disease with a history of aortic valve replacement 6. Diabetes 7. Hypertension Plan: Clinically unchanged, completing abx, card/pulmonary rec-s noted, pending stress test. Pt is not a candidate for lung bx as well as for chemotherapy if he has malignancy Consultation Date/Type/Reason Admit Date/Time Sep 12, 2018 at 09:28 Initial Consult Date 09/13/18 Type of Consult id Requesting Provider: MERT BENITEZ MD Date/Time of Note DATE: 09/15/18 TIME: 12:09 Exam/Review of Systems Exam Vitals Vital Signs Date Temp Pulse Resp B/P (MAP) Pulse Ox O2 O2 Flow FiO2 Time Delivery Rate 09/15/18 79 12:04 09/15/18 99.4 20 110/57 94 Nasal 11:17 (74) Cannula 09/15/18 3.0 10:02 09/12/18 28 17:13 Intake and Output 09/14/18 09/14/18 09/15/18 1515:00 23:00 07:00 IntakeIntake Total 375 ml 300 ml OutputOutput Total 400 ml 700 ml BalanceBalance -25 ml -400 ml Results Result Diagram: 09/15/18 0754 09/15/18 0754 Results 24hrs Laboratory Tests Test 09/14/18 12:18 09/14/18 17:25 09/14/18 20:09 09/15/18 07:53 Bedside Glucose 163 125 227 H 104 Test 09/15/18 07:54 09/15/18 11:21 White Blood Count 5.3 Red Blood Count 4.06 L Hemoglobin 10.5 L Hematocrit 32.9 L Mean Corpuscular 81.0 L Volume Mean Corpuscular 25.9 L Hemoglobin Mean Corpuscular 31.9 L Hemoglobin Concent Red Cell 16.8 H Distribution Width Platelet Count 202 # Mean Platelet Volume 10.6 H Immature 1.500 H Granulocytes % Neutrophils % 49.9 Lymphocytes % 34.8 Monocytes % 11.3 H Eosinophils % 2.3 Basophils % 0.2 Nucleated Red Blood 0.0 Cells % Immature 0.080 H Granulocytes # Neutrophils # 2.6 Lymphocytes # 1.8 Monocytes # 0.6 Eosinophils # 0.1 Basophils # 0.0 Nucleated Red Blood 0.0 Cells # Sodium Level 142 Potassium Level 4.1 Chloride Level 102 Carbon Dioxide Level 27 Anion Gap 13 Blood Urea Nitrogen 49 H Creatinine 2.35 H Est Glomerular Filtrat Rate mL/min Glucose Level 103 Calcium Level 9.7 Phosphorus Level 4.5 Magnesium Level 2.5 Bedside Glucose 115 Medications Medication Current Medications IV Flush (NS 3 ml) 3 ml PER PROTOCOL IV ; Start 09/11/18 at 15:00 Ondansetron HCl (Zofran Inj) 4 mg Q6H PRN IV NAUSEA/VOMITING; Start 09/11/18 at 15:00 Acetaminophen (Tylenol Tab) 650 mg Q6H PRN PO .PAIN 1-3 OR TEMP Last administered on 09/13/18at 23:39; Admin Dose 650 MG; Start 09/11/18 at 15:00 Acetaminophen/ Hydrocodone Bitart ([place] (5/325)) 1 tab Q6H PRN PO .MOD PAIN 4- 6; Start 09/11/18 at 15:00 Docusate Sodium (Colace) 100 mg Q12H PRN PO .CONSTIPATION; Start 09/11/18 at 15:00 Pantoprazole (Protonix Tab) 40 mg DAILY@06 PO Last administered on 09/15/18at 05:37; Admin Dose 40 MG; Start 09/12/18 at 06:00 Allopurinol (Zyloprim) 100 mg DAILY PO Last administered on 09/15/18at 08:12; Admin Dose 100 MG; Start 09/12/18 at 09:00 Aspirin (Halfprin) 81 mg DAILY PO Last administered on 09/15/18at 08:19; Admin Dose 81 MG; Start 09/12/18 at 09:00 Atorvastatin Calcium (Lipitor) 20 mg QHS PO Last administered on 09/14/18at 20:10; Admin Dose 20 MG; Start 09/11/18 at 21:00 Carvedilol (Coreg) 25 mg BID PO Last administered on 09/15/18 08:19; Admin Dose 25 MG; Start 09/11/18 at 21:00 Hydralazine HCl (Apresoline) 50 mg Q8 PO Last administered on 09/15/18 05:37; Admin Dose 50 MG; Start 09/11/18 at 22:00 Isosorbide Mononitrate (Imdur) 60 mg DAILY PO Last administered on 09/15/18 08:19; Admin Dose 60 MG; Start 09/12/18 at 09:00 Latanoprost (Xalatan) 1 drop QHS BOTH EYES Last administered on 09/14/18 20:10; Admin Dose 1 DROP; Start 09/11/18 at 21:00 Levothyroxine Sodium (Synthroid) 75 mcg BEFORE BREAKFAST PO Last administered on 09/15/18 05:37; Admin Dose 75 MCG; Start 09/12/18 at 07:00 Nateglinide (Starlix) 180 mg AC MEALS PO Last administered on 09/14/18 17:26; Admin Dose 180 MG; Start 09/11/18 at 17:25 Ticagrelor (Brilinta) 90 mg Q12 PO Last administered on 09/15/18 08:16; Admin Dose 90 MG; Start 09/11/18 at 21:00 Diagnostic Test (Pha) (Accu-Chek) 1 ea AC MEALS AND BEDTIME XX Last administered on 09/15/18 11:26; Admin Dose 1 EA; Start 09/11/18 at 17:25 Ceftriaxone Sodium 50 ml @ 100 mls/hr DAILY IVPB Last administered on 09/15/18 08:12; Admin Dose 100 MLS/HR; Start 09/11/18 at 15:30 Albuterol/ Ipratropium (Duoneb) 3 ml Q4H RESP THERAPY HHN Last administered on 09/15/18 10:01; Admin Dose 3 ML; Start 09/11/18 at 17:00 Azithromycin (Zithromax) 250 mg DAILY PO Last administered on 09/15/18 08:12; Admin Dose 250 MG; Start 09/14/18 at 09:00 Guaifenesin/ Dextromethorphan (Robitussin Dm Liquid Cup) 10 ml Q4H PRN PO COUGH Last administered on 09/14/18at 12:27; Admin Dose 10 ML; Start 09/14/18 at 10:30 Furosemide (Lasix) 40 mg DAILY PO Last administered on 09/15/18at 08:13; Admin Dose 40 MG; Start 09/14/18 at 11:30 Heparin Sodium (Porcine) (Heparin (5000 Units/1ml)) 5,000 unit BID SC ; Start 09/15/18 at 21:00 DOMONIQUE ANGELO NP Sep 15, 2018 12:10
[2018-09-15] MEDS ORDERED: REGADENOSON 0.4 MG/5 ML SYG ONE (12:52)
--- NOTE | 2018-09-15 14:41 | CONS ---
Assessment/Plan Assessment/Plan Hospital Course (Demo Recall) IMPRESSION: 1. Congestive heart failure exacerbation, systolic, acute on chronic.-neg trop x 3 2. Cardiomyopathy with decreased left ventricular ejection fraction, last known to be approximately 30% by echo in 04/2018. 25% by echo this admit 3. History of PTCA and stent placement, most recently to right coronary artery and left main in 06/2017. 4. History of transcatheter aortic valve replacement or TAVR in 10/2017.-proper function by echo this admit 5. Hypertension. 6. Dyslipidemia. 7. Chronic kidney disease, not on hemodialysis. 8. Shortness of breath secondary to #1. 9. Fevers 10. nodules PLan: -Tele -Continue asa/brilinta -Continue coreg/hydralazine/imdur as tolerated only with possible need to decrease dose -Lasix now resumed daily, Follow volume status and creatnine closely -Continue abx's and f/u cx data -lexiscan stress test Consultation Date/Type/Reason Admit Date/Time Sep 12, 2018 at 09:28 Initial Consult Date 09/13/18 Type of Consult Cardiology Reason for Consultation CHF Requesting Provider: MERT BENITEZ MD Date/Time of Note DATE: 09/15/18 TIME: 14:37 Exam/Review of Systems Vital Signs Vitals Vital Signs Date Temp Pulse Resp B/P (MAP) Pulse Ox O2 O2 Flow FiO2 Time Delivery Rate 09/15/18 3.0 13:22 09/15/18 79 12:04 09/15/18 99.4 20 110/57 94 Nasal 11:17 (74) Cannula 09/12/18 28 17:13 Intake and Output 09/14/18 09/14/18 09/15/18 1515:00 23:00 07:00 IntakeIntake Total 375 ml 300 ml OutputOutput Total 400 ml 700 ml BalanceBalance -25 ml -400 ml Exam Exam Review of Systems: CONSTITUTIONAL: No fevers, chills. PULMONARY: No sob CARDIOVASCULAR: No chest pain/palpitations GASTROINTESTINAL: No nausea/vomiting. GENITOURINARY: No hematuria/dysuria. MUSCULOSKELETAL: No myagias/arthalgias. PSYCHIATRIC: The patient denies depression. NEUROLOGIC: No weakness Constitutional: alert Psych: no complaints Head: normocephalic ENMT: mucosa pink and moist Neck: supple, jvd (9 cm water) Respiratory: diminished breath sounds Cardiovascular: regular rate and rhythm Gastrointestinal: soft, non-tender Musculoskeletal: muscle tone (normal) Extremities: edema (none) Neurological: other (no focal deficits) Labs Result Diagram: 09/15/18 0754 09/15/18 0754 Results 24hrs Laboratory Tests Test 09/14/18 17:25 09/14/18 20:09 09/15/18 07:53 09/15/18 07:54 Bedside Glucose 125 227 H 104 White Blood Count 5.3 Red Blood Count 4.06 L Hemoglobin 10.5 L Hematocrit 32.9 L Mean Corpuscular 81.0 L Volume Mean Corpuscular 25.9 L Hemoglobin Mean Corpuscular 31.9 L Hemoglobin Concent Red Cell 16.8 H Distribution Width Platelet Count 202 # Mean Platelet Volume 10.6 H Immature 1.500 H Granulocytes % Neutrophils % 49.9 Lymphocytes % 34.8 Monocytes % 11.3 H Eosinophils % 2.3 Basophils % 0.2 Nucleated Red Blood 0.0 Cells % Immature 0.080 H Granulocytes # Neutrophils # 2.6 Lymphocytes # 1.8 Monocytes # 0.6 Eosinophils # 0.1 Basophils # 0.0 Nucleated Red Blood 0.0 Cells # Sodium Level 142 Potassium Level 4.1 Chloride Level 102 Carbon Dioxide Level 27 Anion Gap 13 Blood Urea Nitrogen 49 H Creatinine 2.35 H Est Glomerular Filtrat Rate mL/min Glucose Level 103 Calcium Level 9.7 Phosphorus Level 4.5 Magnesium Level 2.5 Test 09/15/18 11:21 Bedside Glucose 115 Medications Medications Current Medications IV Flush (NS 3 ml) 3 ml PER PROTOCOL IV ; Start 09/11/18 at 15:00 Ondansetron HCl (Zofran Inj) 4 mg Q6H PRN IV NAUSEA/VOMITING; Start 09/11/18 at 15:00 Acetaminophen (Tylenol Tab) 650 mg Q6H PRN PO .PAIN 1-3 OR TEMP Last administered on 09/13/18at 23:39; Admin Dose 650 MG; Start 09/11/18 at 15:00 Acetaminophen/ Hydrocodone Bitart ([place] (5/325)) 1 tab Q6H PRN PO .MOD PAIN 4- 6; Start 09/11/18 at 15:00 Docusate Sodium (Colace) 100 mg Q12H PRN PO .CONSTIPATION; Start 09/11/18 at 15:00 Pantoprazole (Protonix Tab) 40 mg DAILY@06 PO Last administered on 09/15/18 05:37; Admin Dose 40 MG; Start 09/12/18 at 06:00 Allopurinol (Zyloprim) 100 mg DAILY PO Last administered on 09/15/18 08:12; Admin Dose 100 MG; Start 09/12/18 at 09:00 Aspirin (Halfprin) 81 mg DAILY PO Last administered on 09/15/18 08:19; Admin Dose 81 MG; Start 09/12/18 at 09:00 Atorvastatin Calcium (Lipitor) 20 mg QHS PO Last administered on 09/14/18 20:10; Admin Dose 20 MG; Start 09/11/18 at 21:00 Carvedilol (Coreg) 25 mg BID PO Last administered on 09/15/18 08:19; Admin Dose 25 MG; Start 09/11/18 at 21:00 Hydralazine HCl (Apresoline) 50 mg Q8 PO Last administered on 09/15/18 05:37; Admin Dose 50 MG; Start 09/11/18 at 22:00 Isosorbide Mononitrate (Imdur) 60 mg DAILY PO Last administered on 09/15/18 08:19; Admin Dose 60 MG; Start 09/12/18 at 09:00 Latanoprost (Xalatan) 1 drop QHS BOTH EYES Last administered on 09/14/18 20:10; Admin Dose 1 DROP; Start 09/11/18 at 21:00 Levothyroxine Sodium (Synthroid) 75 mcg BEFORE BREAKFAST PO Last administered on 09/15/18 05:37; Admin Dose 75 MCG; Start 09/12/18 at 07:00 Nateglinide (Starlix) 180 mg AC MEALS PO Last administered on 09/14/18 17:26; Admin Dose 180 MG; Start 09/11/18 at 17:25 Ticagrelor (Brilinta) 90 mg Q12 PO Last administered on 09/15/18 08:16; Admin Dose 90 MG; Start 09/11/18 at 21:00 Diagnostic Test (Pha) (Accu-Chek) 1 ea AC MEALS AND BEDTIME XX Last administered on 09/15/18 11:26; Admin Dose 1 EA; Start 09/11/18 at 17:25 Ceftriaxone Sodium 50 ml @ 100 mls/hr DAILY IVPB Last administered on 09/15/18 08:12; Admin Dose 100 MLS/HR; Start 09/11/18 at 15:30 Albuterol/ Ipratropium (Duoneb) 3 ml Q4H RESP THERAPY HHN Last administered on 09/15/18 10:01; Admin Dose 3 ML; Start 09/11/18 at 17:00 Azithromycin (Zithromax) 250 mg DAILY PO Last administered on 09/15/18 08:12; Admin Dose 250 MG; Start 09/14/18 at 09:00 Guaifenesin/ Dextromethorphan (Robitussin Dm Liquid Cup) 10 ml Q4H PRN PO COUGH Last administered on 09/14/18 12:27; Admin Dose 10 ML; Start 09/14/18 at 10:30 Furosemide (Lasix) 40 mg DAILY PO Last administered on 09/15/18 08:13; Admin Dose 40 MG; Start 09/14/18 at 11:30 Heparin Sodium (Porcine) (Heparin (5000 Units/1ml)) 5,000 unit BID SC ; Start 09/15/18 at 21:00 ELEANOR ROLDAN Sep 15, 2018 14:41
--- NOTE | 2018-09-15 15:19 | CARRPT ---
DATE OF PROCEDURE: 09/15/2018 REASON FOR STRESS TESTING: Congestive heart failure, shortness of breath, history of stents, assess for ischemia. BASELINE VITAL SIGNS AND ELECTROCARDIOGRAM: Pulse 82, blood pressure 119/60. Electrocardiogram reve als sinus rhythm, rate of 82 with a left bundle branch block, secondary repolarization abnormalities and frequent PVCs. PROCEDURE: The patient underwent standard Lexiscan infusion protocol for 10 seconds followed by radi olabeled tracer. The patient's test was stopped to complete the protocol. Maximal achieved blood pr essure during the test 105/55. Maximum heart rate achieved during the test 93. ELECTROCARDIOGRAM FINDINGS: The patient did not develop any new Lexiscan-induced ST changes from bas bonita abnormalities. The patient did have frequent PVCs throughout stress testing. SYMPTOMS: The patient had complaints of shortness of breath during stress testing, no chest pain. IMPRESSION: 1. No Lexiscan-induced ST or T-wave changes from baseline that are diagnostic of cardiac ischemia. 2. Complaints of shortness of breath during stress test that resolved in recovery. 3. Positive premature ventricular contractions during stress testing. 4. Report of nuclear images to follow in separate dictation. Dictated By: ELEANOR ABREU/ELIZABETH Conf#: [id number] DID#: [id number] CC: MERT BENITEZ;*End*
[2018-09-15] MEDS: LATANOPROST 0.005% 2.5 ML OPH BOTH EYES SCH (20:51)
[2018-09-15] MEDS: ATORVASTATIN 20 MG TAB PO SCH (20:53)
[2018-09-15] MEDS: HEPARIN 5,000 UNIT/1 ML VIAL SC SCH ×2 (20:54→21:00)
[2018-09-16] VITALS (13 sets, daily range): BP systolic 91–134; BP diastolic 51–64; PULSE 62–86; RESP 19–20
[2018-09-16] MEDS: ALBUTEROL/IPRATROPIUM (NEB) 3 ML AMP HHN SCH ×6 (04:41→21:21)
[2018-09-16] MEDS: PANTOPRAZOLE (EC) 40 MG TAB PO SCH (05:50)
[2018-09-16] MEDS: LEVOTHYROXINE 75 MCG TAB PO SCH (05:51)
[2018-09-16] MEDS: ACCU-CHEK XX SCH ×4 (08:14→20:22)
[2018-09-16] MEDS: NATEGLINIDE 60 MG TAB PO SCH ×3 (08:15→18:03)
[2018-09-16] MEDS: AZITHROMYCIN 250 MG TAB PO SCH (08:16)
[2018-09-16] MEDS: ISOSORBIDE MONONITRATE(SR)60 MG TAB PO SCH (08:16)
[2018-09-16] MEDS: ASPIRIN (EC) 81 MG TAB PO SCH (08:17)
[2018-09-16] MEDS: FUROSEMIDE 40 MG TAB PO SCH (08:17)
[2018-09-16] MEDS: ALLOPURINOL 100 MG TAB PO SCH (08:17)
[2018-09-16] MEDS: CEFTRIAXONE 1 GM/50 ML (PMX) 50 ML IVPB SCH (08:18)
[2018-09-16] MEDS: HEPARIN 5,000 UNIT/1 ML VIAL SC SCH ×2 (08:50→20:18)
[2018-09-16] MEDS: TICAGRELOR 90 MG TABLET PO SCH ×2 (08:50→20:18)
--- NOTE | 2018-09-16 10:34 | CONS ---
Assessment/Plan Assessment/Plan Hospital Course (Demo Recall) ID PROGRESS NOTE CURRENT ABX: DAY #5.5 => Ceftriaxone + Add Doxy for atypical coverage S/P Azith X 3 DAYS 09/16/18 0540 09/16/18 0540 24H INTERVAL SUMMARY * Awake, alert, dry non-productive cough, feels weak, feels feverish today * RN at bedside suspects viral bronchitis syndrome -- chest congestion * Tmax 100.5 today DIAGNOSTIC IMAGING * 09/14/18 CXR: IMPRESSION:1. Mild cardiomegaly.2. Atherosclerosis. 3. Permanent pacemaker/internal cardiac defibrillator. 4. Otherwise unremarkable chest radiograph. * 09/15/18 LEXISCAN MPI: IMPRESSION: * 1. The type and distribution of the scintigraphic abnormalities are most consistent with a moderate size predominantly nonreversible perfusion defect in the inferior, lateral and mid to basal anterior mcclure. * 2. Mild to moderate hypokinesis of the left ventricle. * 3. The left ventricle ejection fraction at stress is 29%. * 09/11/18 CT CHEST: IMPRESSION: * Numerous nodular consolidative opacities throughout both lungs. These probably represent a multifocal pneumonia, possibly atypical, however other entities such as septic emboli or metastatic disease cannot be excluded. * Smooth interlobular septal thickening at the lung apices and bases, possibly representing early pulmonary edema. * Small bilateral pleural effusions. * Enlarged heart with coronary artery stents and a cardiac AICD. There has also been transcatheter aortic valve replacement. * Mildly enlarged main pulmonary artery, raising the possibility of pulmonary hypertension. * Mild to moderate atherosclerotic arterial calcifications. MICRO/OTHER * 09/16/18 = non e PHYSICAL EXAMINATION: GENERAL: VSS, NAD, A/A/O == generalized fatigue/malaise/weakness due to acute illness HEENT: AT, NC, anicteric, NECK: Supple, trach midline CHEST: Equal chest rise bilaterally, without dyspnea on observation HEART: Pulse RRR ABDOMEN: Soft / NT EXTREMITIES: Warm, dry SKIN: No rash, no diaphoresis ID ASSESSMENT 83 yo M admit with: 1. Acute hypoxemia on admission 2. Acute bronchitis with interval improvement as well == DDX Possible pneumonia per CT * 09/11/18 CT CHEST: * Numerous nodular consolidative opacities throughout both lungs. These probably represent a multifocal pneumonia, possibly atypical, however other entities such as septic emboli or metastatic disease cannot be excluded. 3. Cardiomyopathy with CHF exacerbation 4. Acute possibly on chronic kidney disease 5. Coronary artery disease with a history of aortic valve replacement 6. Diabetes 7. Hypertension (-)MRSA Nares ABX ALLERGIES: KNDA INVASIVES: PIV CURRENT ABX: DAY # DAY #5.5 => Ceftriaxone + Add Doxy for atypical coverage S/P Azith X 3 DAYS ID RECOMMENDATIONS/PLAN: 1. Continue current ABX + Add Doxy for atypical coverage == low grade temps persisting Consultation Date/Type/Reason Admit Date/Time Sep 12, 2018 at 09:28 Initial Consult Date 09/13/18 Requesting Provider: MERT BENITEZ MD Date/Time of Note DATE: 09/16/18 TIME: 10:33 Exam/Review of Systems Exam Vitals Vital Signs Date Temp Pulse Resp B/P (MAP) Pulse Ox O2 O2 Flow FiO2 Time Delivery Rate 09/16/18 85 14 98 Nasal 2.0 10:04 Cannula 09/16/18 100.5 134/64 07:41 (87) 09/12/18 28 17:13 Intake and Output 09/15/18 09/15/18 09/16/18 1515:00 23:00 07:00 IntakeIntake Total 720 ml 350 ml OutputOutput Total 800 ml 700 ml BalanceBalance -80 ml -350 ml Results Result Diagram: 09/16/18 0540 09/16/18 0540 Results 24hrs Laboratory Tests Test 09/15/18 11:21 09/15/18 17:19 09/15/18 20:50 09/16/18 05:40 Bedside Glucose 115 198 102 White Blood Count 6.1 Red Blood Count 3.91 L Hemoglobin 10.3 L Hematocrit 31.3 L Mean Corpuscular 80.1 L Volume Mean Corpuscular 26.3 L Hemoglobin Mean Corpuscular 32.9 Hemoglobin Concent Red Cell 16.7 H Distribution Width Platelet Count 203 Mean Platelet Volume 11.2 H Immature 1.100 H Granulocytes % Neutrophils % 61.0 Lymphocytes % 27.1 Monocytes % 9.3 Eosinophils % 1.3 Basophils % 0.2 Nucleated Red Blood 0.0 Cells % Immature 0.070 H Granulocytes # Neutrophils # 3.7 Lymphocytes # 1.7 Monocytes # 0.6 Eosinophils # 0.1 Basophils # 0.0 Nucleated Red Blood 0.0 Cells # Sodium Level 141 Potassium Level 4.0 Chloride Level 97 Carbon Dioxide Level 26 Anion Gap 18 H Blood Urea Nitrogen 57 H Creatinine 2.49 H Est Glomerular Filtrat Rate mL/min Glucose Level 102 Calcium Level 9.0 Test 09/16/18 08:11 Bedside Glucose 107 Medications Medication Current Medications IV Flush (NS 3 ml) 3 ml PER PROTOCOL IV ; Start 09/11/18 at 15:00 Ondansetron HCl (Zofran Inj) 4 mg Q6H PRN IV NAUSEA/VOMITING; Start 09/11/18 at 15:00 Acetaminophen (Tylenol Tab) 650 mg Q6H PRN PO .PAIN 1-3 OR TEMP Last admini stered on 09/13/18at 23:39; Admin Dose 650 MG; Start 09/11/18 at 15:00 Acetaminophen/ Hydrocodone Bitart ([place] (5/325)) 1 tab Q6H PRN PO .MOD PAIN 4- 6; Start 09/11/18 at 15:00 Docusate Sodium (Colace) 100 mg Q12H PRN PO .CONSTIPATION; Start 09/11/18 at 15:00 Pantoprazole (Protonix Tab) 40 mg DAILY@06 PO Last administered on 09/16/18 05:50; Admin Dose 40 MG; Start 09/12/18 at 06:00 Allopurinol (Zyloprim) 100 mg DAILY PO Last administered on 09/16/18 08:17; Admin Dose 100 MG; Start 09/12/18 at 09:00 Aspirin (Halfprin) 81 mg DAILY PO Last administered on 09/16/18 08:17; Admin Dose 81 MG; Start 09/12/18 at 09:00 Atorvastatin Calcium (Lipitor) 20 mg QHS PO Last administered on 09/15/18 20:53; Admin Dose 20 MG; Start 09/11/18 at 21:00 Carvedilol (Coreg) 25 mg BID PO Last administered on 09/16/18 08:16; Admin Dose 25 MG; Start 09/11/18 at 21:00 Hydralazine HCl (Apresoline) 50 mg Q8 PO Last administered on 09/16/18 05:50; Admin Dose 50 MG; Start 09/11/18 at 22:00 Isosorbide Mononitrate (Imdur) 60 mg DAILY PO Last administered on 09/16/18 08:16; Admin Dose 60 MG; Start 09/12/18 at 09:00 Latanoprost (Xalatan) 1 drop QHS BOTH EYES Last administered on 09/15/18 20:51; Admin Dose 1 DROP; Start 09/11/18 at 21:00 Levothyroxine Sodium (Synthroid) 75 mcg BEFORE BREAKFAST PO Last administered on 09/16/18 05:51; Admin Dose 75 MCG; Start 09/12/18 at 07:00 Nateglinide (Starlix) 180 mg AC MEALS PO Last administered on 09/16/18 08:15; Admin Dose 180 MG; Start 09/11/18 at 17:25 Ticagrelor (Brilinta) 90 mg Q12 PO Last administered on 09/16/18 08:50; Admin Dose 90 MG; Start 09/11/18 at 21:00 Diagnostic Test (Pha) (Accu-Chek) 1 ea AC MEALS AND BEDTIME XX Last administered on 09/16/18 08:14; Admin Dose 1 EA; Start 09/11/18 at 17:25 Ceftriaxone Sodium 50 ml @ 100 mls/hr DAILY IVPB Last administered on 09/16/18 08:18; Admin Dose 100 MLS/HR; Start 09/11/18 at 15:30 Albuterol/ Ipratropium (Duoneb) 3 ml Q4H RESP THERAPY HHN Last administered on 09/16/18 10:04; Admin Dose 3 ML; Start 09/11/18 at 17:00 Azithromycin (Zithromax) 250 mg DAILY PO Last administered on 09/16/18 08:16; Admin Dose 250 MG; Start 09/14/18 at 09:00 Guaifenesin/ Dextromethorphan (Robitussin Dm Liquid Cup) 10 ml Q4H PRN PO COUGH Last administered on 09/14/18 12:27; Admin Dose 10 ML; Start 09/14/18 at 10:30 Furosemide (Lasix) 40 mg DAILY PO Last administered on 09/16/18 08:17; Admin Dose 40 MG; Start 09/14/18 at 11:30 Heparin Sodium (Porcine) (Heparin (5000 Units/1ml)) 5,000 unit BID SC Last administered on 3/30/19at 08:50; Admin Dose 5,000 UNIT; Start 09/15/18 at 21:00 CHRIS GARNER NP Sep 16, 2018 10:34
--- NOTE | 2018-09-16 10:54 | PN ---
Date/Time of Note Date/Time of Note DATE: 09/16/18 TIME: 10:54 Assessment/Plan VTE Prophylaxis Risk score (from [employer] [facility])>0 risk: 7 SCD applied (from [facility]): No SCD contraindicated: other Pharmacological prophylaxis: heparin Lines/Catheters IV C[facility]ter Type ([facility] [place] Lock Urinary Cath still in place: No Assessment/Plan Hospital Course 1. Shortness of breath likely secondary to congestive heart failure exacerbation, acute on chronic. However, the patient also had low-grade fevers. We cannot rule out underlying pneumonia. CT of the chest shows Numerous nodular consolidative opacities throughout both lungs. These probably represent a multifocal pneumonia, possibly atypical, however other entities such as septic emboli or metastatic disease cannot be excluded. 2. History of acute on chronic congestive heart failure. 3. Chronic kidney disease stage III. now with KEN due to diuresis 4. Elevated BNP due to congestive heart failure. 5. Diabetes. 6. Hypertension. 7. Hyperlipidemia. 8. 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 9. History of transaortic valve replacement. 10. Normocytic hypochromic anemia 2/2 kidney disease. 11. fever 100.5 Assessment/Plan -stress test left ventricle ejection fraction at stress is 29%. -pt is DNR -UA to collect, pt has a fever and rise in creatinine stool culture -stop Allopurinol -Continue with Rocephin/azithromycin, - monitor Cr. daily, today 2.49 -Echo worsening EF of 25% -CEA, CA 189 and PSA wnl -Agree with aspirin statin Brilinta Coreg - GI proph Protonix PO -DVT prophylaxis Heparin 5000 BID sq - fu with pulmonary /cardiac recs/ID Result Diagram: 09/16/18 0540 09/16/18 0540 Results 24hrs Laboratory Tests Test 09/15/18 11:21 09/15/18 17:19 09/15/18 20:50 09/16/18 05:40 Bedside Glucose 115 198 102 White Blood Count 6.1 Red Blood Count 3.91 L Hemoglobin 10.3 L Hematocrit 31.3 L Mean Corpuscular 80.1 L Volume Mean Corpuscular 26.3 L Hemoglobin Mean Corpuscular 32.9 Hemoglobin Concent Red Cell 16.7 H Distribution Width Platelet Count 203 Mean Platelet Volume 11.2 H Immature 1.100 H Granulocytes % Neutrophils % 61.0 Lymphocytes % 27.1 Monocytes % 9.3 Eosinophils % 1.3 Basophils % 0.2 Nucleated Red Blood 0.0 Cells % Immature 0.070 H Granulocytes # Neutrophils # 3.7 Lymphocytes # 1.7 Monocytes # 0.6 Eosinophils # 0.1 Basophils # 0.0 Nucleated Red Blood 0.0 Cells # Sodium Level 141 Potassium Level 4.0 Chloride Level 97 Carbon Dioxide Level 26 Anion Gap 18 H Blood Urea Nitrogen 57 H Creatinine 2.49 H Est Glomerular Filtrat Rate mL/min Glucose Level 102 Calcium Level 9.0 Test 09/16/18 08:11 Bedside Glucose 107 Subjective 24 Hr Interval Summary Respiratory: shortness of breath Gastrointestinal: other (loose stool) Exam/Review of Systems Exam Vitals Vital Signs Date Temp Pulse Resp B/P (MAP) Pulse Ox O2 O2 Flow FiO2 Time Delivery Rate 09/16/18 85 14 98 Nasal 2.0 10:04 Cannula 09/16/18 100.5 134/64 07:41 (87) 09/12/18 28 17:13 Intake and Output 09/15/18 09/15/18 09/16/18 1515:00 23:00 07:00 IntakeIntake Total 720 ml 350 ml OutputOutput Total 800 ml 700 ml BalanceBalance -80 ml -350 ml Exam fever Constitutional: alert, oriented Head: normocephalic Neck: supple Respiratory: normal air movement, diminished breath sounds Cardiovascular: regular rate and rhythm Gastrointestinal: soft Results Results 24hrs Laboratory Tests Test 09/15/18 11:21 09/15/18 17:19 09/15/18 20:50 09/16/18 05:40 Bedside Glucose 115 198 102 White Blood Count 6.1 Red Blood Count 3.91 L Hemoglobin 10.3 L Hematocrit 31.3 L Mean Corpuscular 80.1 L Volume Mean Corpuscular 26.3 L Hemoglobin Mean Corpuscular 32.9 Hemoglobin Concent Red Cell 16.7 H Distribution Width Platelet Count 203 Mean Platelet Volume 11.2 H Immature 1.100 H Granulocytes % Neutrophils % 61.0 Lymphocytes % 27.1 Monocytes % 9.3 Eosinophils % 1.3 Basophils % 0.2 Nucleated Red Blood 0.0 Cells % Immature 0.070 H Granulocytes # Neutrophils # 3.7 Lymphocytes # 1.7 Monocytes # 0.6 Eosinophils # 0.1 Basophils # 0.0 Nucleated Red Blood 0.0 Cells # Sodium Level 141 Potassium Level 4.0 Chloride Level 97 Carbon Dioxide Level 26 Anion Gap 18 H Blood Urea Nitrogen 57 H Creatinine 2.49 H Est Glomerular Filtrat Rate mL/min Glucose Level 102 Calcium Level 9.0 Test 09/16/18 08:11 Bedside Glucose 107 Medications Medication Current Medications IV Flush (NS 3 ml) 3 ml PER PROTOCOL IV ; Start 09/11/18 at 15:00 Ondansetron HCl (Zofran Inj) 4 mg Q6H PRN IV NAUSEA/VOMITING; Start 09/11/18 at 15:00 Acetaminophen (Tylenol Tab) 650 mg Q6H PRN PO .PAIN 1-3 OR TEMP Last administered on 09/13/18at 23:39; Admin Dose 650 MG; Start 09/11/18 at 15:00 Acetaminophen/ Hydrocodone Bitart ([place] (5/325)) 1 tab Q6H PRN PO .MOD PAIN 4- 6; Start 09/11/18 at 15:00 Docusate Sodium (Colace) 100 mg Q12H PRN PO .CONSTIPATION; Start 09/11/18 at 15:00 Pantoprazole (Protonix Tab) 40 mg DAILY@06 PO Last administered on 09/16/18 05:50; Admin Dose 40 MG; Start 09/12/18 at 06:00 Allopurinol (Zyloprim) 100 mg DAILY PO Last administered on 09/16/18 08:17; Admin Dose 100 MG; Start 09/12/18 at 09:00 Aspirin (Halfprin) 81 mg DAILY PO Last administered on 09/16/18 08:17; Admin Dose 81 MG; Start 09/12/18 at 09:00 Atorvastatin Calcium (Lipitor) 20 mg QHS PO Last administered on 09/15/18at 20:53; Admin Dose 20 MG; Start 09/11/18 at 21:00 Carvedilol (Coreg) 25 mg BID PO Last administered on 09/16/18 08:16; Admin Do se 25 MG; Start 09/11/18 at 21:00 Hydralazine HCl (Apresoline) 50 mg Q8 PO Last administered on 09/16/18at 05:50; Admin Dose 50 MG; Start 09/11/18 at 22:00 Isosorbide Mononitrate (Imdur) 60 mg DAILY PO Last administered on 09/16/18 08:16; Admin Dose 60 MG; Start 09/12/18 at 09:00 Latanoprost (Xalatan) 1 drop QHS BOTH EYES Last administered on 09/15/18 20:51; Admin Dose 1 DROP; Start 09/11/18 at 21:00 Levothyroxine Sodium (Synthroid) 75 mcg BEFORE BREAKFAST PO Last administered on 09/16/18 05:51; Admin Dose 75 MCG; Start 09/12/18 at 07:00 Nateglinide (Starlix) 180 mg AC MEALS PO Last administered on 09/16/18 08:15; Admin Dose 180 MG; Start 09/11/18 at 17:25 Ticagrelor (Brilinta) 90 mg Q12 PO Last administered on 09/16/18 08:50; Admin Dose 90 MG; Start 09/11/18 at 21:00 Diagnostic Test (Pha) (Accu-Chek) 1 ea AC MEALS AND BEDTIME XX Last administered on 09/16/18 08:14; Admin Dose 1 EA; Start 09/11/18 at 17:25 Ceftriaxone Sodium 50 ml @ 100 mls/hr DAILY IVPB Last administered on 09/16/18 08:18; Admin Dose 100 MLS/HR; Start 09/11/18 at 15:30 Albuterol/ Ipratropium (Duoneb) 3 ml Q4H RESP THERAPY HHN Last administered on 09/16/18 10:04; Admin Dose 3 ML; Start 09/11/18 at 17:00 Azithromycin (Zithromax) 250 mg DAILY PO Last administered on 09/16/18 08:16; Admin Dose 250 MG; Start 09/14/18 at 09:00 Guaifenesin/ Dextromethorphan (Robitussin Dm Liquid Cup) 10 ml Q4H PRN PO COUGH Last administered on 09/14/18 12:27; Admin Dose 10 ML; Start 09/14/18 at 10:30 Furosemide (Lasix) 40 mg DAILY PO Last administered on 09/16/18 08:17; Admin Dose 40 MG; Start 09/14/18 at 11:30 Heparin Sodium (Porcine) (Heparin (5000 Units/1ml)) 5,000 unit BID SC Last administered on 3/30/19at 08:50; Admin Dose 5,000 UNIT; Start 09/15/18 at 21:00 MYRA CABRALES Sep 16, 2018 10:54
[2018-09-16] MEDS: ACETAMINOPHEN 325 MG TAB PO PRN (11:44)
[2018-09-16] MEDS: GUAIFENESIN/DM 5ML CUP PO PRN (11:44)
--- NOTE | 2018-09-16 12:19 | CONS ---
Consult Date/Type/Reason Admit Date/Time Sep 12, 2018 at 09:28 Initial Consult Date Requesting Provider: MERT BENITEZ MD Date/Time of Note DATE: 09/16/18 TIME: 12:17 Subjective NO acute events - pt stable SPECT with 29% EF, mixed defect - will discuss with DR. Flores, but with renal insufficiency, will advise to Rx medically. ROS: No fever, no chills, no nausea, no vomiting, no diarrhea/constipation No recent weight changes No chest pain, no PND, no orthopnea - improved SOB today No dizziness, blurred vision No thirst, no heat or cold intolerance Objective Vitals Vital Signs Date Temp Pulse Resp B/P (MAP) Pulse Ox O2 O2 Flow FiO2 Time Delivery Rate 09/16/18 100.5 81 20 103/52 95 Nasal 11:35 (69) Cannula 09/16/18 2.0 10:04 09/12/18 28 17:13 Intake and Output 09/15/18 09/15/18 09/16/18 1515:00 23:00 07:00 IntakeIntake Total 720 ml 350 ml OutputOutput Total 800 ml 700 ml BalanceBalance -80 ml -350 ml Exam General: WN/WD/NAD, AOx 3 HEENT: Unicetric/atraumatic/EOMI (does not follow commands) NECK: JVD elevated, no thyromegaly Lymph: no lymphadenopathy HEART: regular with no S3, II/ systolic murmur at apex, device in place LUNGS: Coarse sounds ABD: soft, NT, ND, +BS : Intact Neuro: non focal SKIN: chronic changes EXT: trace edema Results/Medications Result Diagram: 09/16/18 0540 09/16/18 0540 Results 24 hrs Laboratory Tests Test 09/15/18 17:19 09/15/18 20:50 09/16/18 05:40 09/16/18 08:11 Bedside Glucose 198 102 107 White Blood Count 6.1 Red Blood Count 3.91 L Hemoglobin 10.3 L Hematocrit 31.3 L Mean Corpuscular 80.1 L Volume Mean Corpuscular 26.3 L Hemoglobin Mean Corpuscular 32.9 Hemoglobin Concent Red Cell 16.7 H Distribution Width Platelet Count 203 Mean Platelet Volume 11.2 H Immature 1.100 H Granulocytes % Neutrophils % 61.0 Lymphocytes % 27.1 Monocytes % 9.3 Eosinophils % 1.3 Basophils % 0.2 Nucleated Red Blood 0.0 Cells % Immature 0.070 H Granulocytes # Neutrophils # 3.7 Lymphocytes # 1.7 Monocytes # 0.6 Eosinophils # 0.1 Basophils # 0.0 Nucleated Red Blood 0.0 Cells # Sodium Level 141 Potassium Level 4.0 Chloride Level 97 Carbon Dioxide Level 26 Anion Gap 18 H Blood Urea Nitrogen 57 H Creatinine 2.49 H Est Glomerular Filtrat Rate mL/min Glucose Level 102 Calcium Level 9.0 Test 09/16/18 12:09 Bedside Glucose 158 Home Meds Active Scripts Furosemide* (Furosemide*) 40 Mg Tablet, 40 MG PO DAILY for 30 Days, TAB Prov:MERT BENITEZ MD 08/21/18 Albuterol Sulfate* (Proair HFA*) 8.5 Gm Hfa.aer.ad, 2 PUFF INH Q4H PRN for WHEEZING AND SOB, #1 INHALER Prov:MERT BENITEZ MD 05/19/18 Hydralazine Hcl* (Apresoline*) 50 Mg Tab, 50 MG PO Q8 for 30 Days, TAB Prov:MYRA CABRALES 05/19/18 Atorvastatin Calcium (Atorvastatin Calcium) 20 Mg Tablet, 20 MG PO QHS for 30 Days, TAB Prov:MYRA CABRALES 05/19/18 Reported Medications Latanoprost (Xalatan) 2.5 Ml Drops, 1 DROP BOTH EYES QHS, #1 BOTTLE 05/09/18 Nateglinide* (Nateglinide*) 60 Mg Tablet, 180 MG PO AC MEALS, TAB 05/09/18 Levothyroxine Sodium* (Levothyroxine Sodium*) 75 Mcg Tablet, 75 MCG PO BEFORE BREAKFAST, #30 TAB 10/27/17 Sitagliptin* (Januvia*) 50 Mg Tablet, 50 MG PO DAILY, #30 TAB 07/30/17 Isosorbide Mononitrate* (Isosorbide Mononitrate*) 60 Mg Tab.er.24h, 60 MG PO DAILY, TAB 07/30/17 Carvedilol* (Carvedilol*) 25 Mg Tablet, 25 MG PO BID, #60 TAB 07/30/17 Ticagrelor* (Brilinta*) 90 Mg Tablet, 90 MG PO Q12, TAB 07/30/17 Aspirin (Low Dose Aspirin) 81 Mg Tablet.dr, 81 MG PO DAILY, #30 TAB 07/30/17 Allopurinol* (Allopurinol*) 100 Mg Tablet, 100 MG PO DAILY, TAB 07/30/17 Medications Current Medications IV Flush (NS 3 ml) 3 ml PER PROTOCOL IV ; Start 09/11/18 at 15:00 Ondansetron HCl (Zofran Inj) 4 mg Q6H PRN IV NAUSEA/VOMITING; Start 09/11/18 at 15:00 Acetaminophen (Tylenol Tab) 650 mg Q6H PRN PO .PAIN 1-3 OR TEMP Last administered on 09/16/18 11:44; Admin Dose 650 MG; Start 09/11/18 at 15:00 Acetaminophen/ Hydrocodone Bitart ([place] (5/325)) 1 tab Q6H PRN PO .MOD PAIN 4- 6; Start 09/11/18 at 15:00 Docusate Sodium (Colace) 100 mg Q12H PRN PO .CONSTIPATION; Start 09/11/18 at 15:00 Pantoprazole (Protonix Tab) 40 mg DAILY@06 PO Last administered on 09/16/18 05:50; Admin Dose 40 MG; Start 09/12/18 at 06:00 Allopurinol (Zyloprim) 100 mg DAILY PO Last administered on 09/16/18 08:17; Admin Dose 100 MG; Start 09/12/18 at 09:00 Aspirin (Halfprin) 81 mg DAILY PO Last administered on 09/16/18 08:17; Admin Dose 81 MG; Start 09/12/18 at 09:00 Atorvastatin Calcium (Lipitor) 20 mg QHS PO Last administered on 09/15/18at 20:53; Admin Dose 20 MG; Start 09/11/18 at 21:00 Carvedilol (Coreg) 25 mg BID PO Last administered on 09/16/18 08:16; Admin Dose 25 MG; Start 09/11/18 at 21:00 Hydralazine HCl (Apresoline) 50 mg Q8 PO Last administered on 09/16/18 05:50; Admin Dose 50 MG; Start 09/11/18 at 22:00 Isosorbide Mononitrate (Imdur) 60 mg DAILY PO Last administered on 09/16/18 08:16; Admin Dose 60 MG; Start 09/12/18 at 09:00 Latanoprost (Xalatan) 1 drop QHS BOTH EYES Last administered on 09/15/18 20:51; Admin Dose 1 DROP; Start 09/11/18 at 21:00 Levothyroxine Sodium (Synthroid) 75 mcg BEFORE BREAKFAST PO Last administered on 09/16/18 05:51; Admin Dose 75 MCG; Start 09/12/18 at 07:00 Nateglinide (Starlix) 180 mg AC MEALS PO Last administered on 09/16/18 11:45; Admin Dose 180 MG; Start 09/11/18 at 17:25 Ticagrelor (Brilinta) 90 mg Q12 PO Last administered on 09/16/18 08:50; Admin Dose 90 MG; Start 09/11/18 at 21:00 Diagnostic Test (Pha) (Accu-Chek) 1 ea AC MEALS AND BEDTIME XX Last administered on 09/16/18 11:59; Admin Dose 1 EA; Start 09/11/18 at 17:25 Ceftriaxone Sodium 50 ml @ 100 mls/hr DAILY IVPB Last administered on 09/16/18 08:18; Admin Dose 100 MLS/HR; Start 09/11/18 at 15:30 Albuterol/ Ipratropium (Duoneb) 3 ml Q4H RESP THERAPY HHN Last administered on 09/16/18 10:04; Admin Dose 3 ML; Start 09/11/18 at 17:00 Azithromycin (Zithromax) 250 mg DAILY PO Last administered on 09/16/18 08:16; Admin Dose 250 MG; Start 09/14/18 at 09:00 Guaifenesin/ Dextromethorphan (Robitussin Dm Liquid Cup) 10 ml Q4H PRN PO COUGH Last administered on 09/16/18 11:44; Admin Dose 10 ML; Start 09/14/18 at 10:30 Furosemide (Lasix) 40 mg DAILY PO Last administered on 09/16/18 08:17; Admin Dose 40 MG; Start 09/14/18 at 11:30 Heparin Sodium (Porcine) (Heparin (5000 Units/1ml)) 5,000 unit BID SC Last administered on 09/16/18 08:50; Admin Dose 5,000 UNIT; Start 09/15/18 at 21:00 Doxycycline Hyclate 100 mg/ Sodium Chloride 250 ml @ 250 mls/hr Q12 IVPB ; Start 09/16/18 at 13:00 Assessment/Plan Hospital Course (Demo Recall) 1. Congestive heart failure exacerbation, systolic, acute on chronic - con't gentle diuresis. Better now. 2. Cardiomyopathy with decreased left ventricular ejection fraction, last known to be approximately 30% by echo in 04/2018. Con't gentle diuresis. CR 2.49 - renal team follows. 3. History of PTCA and stent placement, most recently to right coronary artery and left main in 06/2017. NO CP now - r/o [place]. 4. History of transcatheter aortic valve replacement or TAVR in 10/2017 - with good fxn by exam. 5. Hypertension - reasonably controlled. 6. Dyslipidemia. 7. Chronic kidney disease, not on hemodialysis - Cr up to 2.49 8. Shortness of breath secondary to #1- better now 9.CAD - Stres test with mixed defect - no LHC with Cr up at 2.49. DONNA MORALES MD Sep 16, 2018 12:19
[2018-09-16] MEDS: ONDANSETRON 4 MG INJ IV PRN (12:47)
[2018-09-16] MEDS: DOXYCYCLINE 100 MG in SOD CHLORIDE 0.9% 250 ML IVPB SCH ×2 (13:00→20:21)
[2018-09-16] MEDS: MEGESTROL (40 MG/ML) 10ML CUP PO SCH ×2 (14:56→20:15)
--- NOTE | 2018-09-16 18:23 | RADRPT ---
Vent Rate: 72 bpm RR Interval: 0 msec [place] Interval: 182 msec QRS Duration: 170 msec QT Interval: 492 msec QTC Interval: 538 msec P-R-T [place]: 36 - 27 - 161 degrees Normal sinus rhythm Left bundle branch block Abnormal ECG Electronically Signed By: Felix Mccallum
[2018-09-16] MEDS: LATANOPROST 0.005% 2.5 ML OPH BOTH EYES SCH (20:13)
[2018-09-16] MEDS: ATORVASTATIN 20 MG TAB PO SCH (20:15)
[2018-09-17] VITALS (11 sets, daily range): BP systolic 95–118; BP diastolic 52–69; PULSE 61–81; RESP 20
[2018-09-17] MEDS: ALBUTEROL/IPRATROPIUM (NEB) 3 ML AMP HHN SCH ×6 (00:30→21:20)
[2018-09-17] MEDS: LEVOTHYROXINE 75 MCG TAB PO SCH (06:18)
[2018-09-17] MEDS: PANTOPRAZOLE (EC) 40 MG TAB PO SCH (06:19)
[2018-09-17] MEDS: GUAIFENESIN/DM 5ML CUP PO PRN ×3 (06:23→22:08)
[2018-09-17] MEDS: NATEGLINIDE 60 MG TAB PO SCH ×2 (07:41→11:50)
[2018-09-17] MEDS: ACCU-CHEK XX SCH ×4 (07:43→21:40)
[2018-09-17] MEDS: MEGESTROL (40 MG/ML) 10ML CUP PO SCH ×2 (08:30→20:25)
[2018-09-17] MEDS: ISOSORBIDE MONONITRATE(SR)60 MG TAB PO SCH (08:31)
[2018-09-17] MEDS: FUROSEMIDE 40 MG TAB PO SCH (08:31)
[2018-09-17] MEDS: ASPIRIN (EC) 81 MG TAB PO SCH (08:31)
[2018-09-17] MEDS: ALLOPURINOL 100 MG TAB PO SCH (08:32)
[2018-09-17] MEDS: CEFTRIAXONE 1 GM/50 ML (PMX) 50 ML IVPB SCH (08:32)
[2018-09-17] MEDS: AZITHROMYCIN 250 MG TAB PO SCH (08:32)
[2018-09-17] MEDS: TICAGRELOR 90 MG TABLET PO SCH ×2 (08:43→20:37)
[2018-09-17] MEDS: HEPARIN 5,000 UNIT/1 ML VIAL SC SCH ×2 (08:43→20:37)
[2018-09-17] MEDS: DOXYCYCLINE 100 MG in SOD CHLORIDE 0.9% 250 ML IVPB SCH ×2 (09:20→20:27)
--- NOTE | 2018-09-17 10:42 | CONS ---
Assessment/Plan Assessment/Plan Assessment/Plan (Daily) Assessment and recommendations; 1. Patient admitted for CHF exacerbation due to underlying severe cardiomyopathy with interval improvement. 2. Chronic renal insufficiency. 3. Chronic anemia and thrombocytopenia. 4. Hypertension. 5. Gout. 6. History of transcutaneous aortic valve replacement. 7. Hypothyroidism. 8. Nonspecific nodules seen on CT imaging of the chest with a background of CHF pattern, difficult to assess the significance of these changes at this point. Continue on supportive care. Consider discharge. Because of multiple comorbidities patient is a poor candidate for lung biopsy. Would recommend obtaining repeat CT imaging of the chest in about 3 weeks time. Consultation Date/Type/Reason Admit Date/Time Sep 12, 2018 at 09:28 Initial Consult Date 09/13/18 Type of Consult Pulmonary pulmonary consult requested for evaluation of hypoxemia. Patient is a very pleasant 83-year-old gentleman who came into the hospital with a few days history of increasing shortness of breath. Patient denies any chest pain, wheezing, cough, sputum production hemoptysis, any fever or chills. Upon evaluation further workup was done including a chest x-ray as well as CT chest and BNP level which are consistent with exacerbation of underlying cardiomyopathy with CHF. Patient feeling somewhat better since admission. Complains of chronic dyspnea on exertion. Past medical history; 1. Cardiomyopathy with EF of around 25%. 2. Chronic renal insufficiency. 3. History of diabetes and hypertension. 4. Status post transcutaneous aortic valve replacement. 5. History of cardiac arrhythmia, status post pacemaker placement in the past. 6. History of appendectomy. Medications; reviewed. Allergies; none. Social history; patient never smoked. No stable alcohol or drug abuse. Family history; patient is single. 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 Review of systems; denies any headache, visual changes, sinus symptoms. Any chest pain or angina. Shortness of breath has improved since admission. Complains of chronic dyspnea on exertion. Complains of chronic orthopnea. Denies any abdominal pain, nausea vomiting. Any melena or hematochezia. Any urinary symptoms. Denies any weight loss. Denies any weight gain. General exam; elderly male, awake alert, currently in no distress. Looks younger than stated age. Requesting Provider: MERT BENITEZ MD Date/Time of Note DATE: 09/17/18 TIME: 10:40 24 HR Interval Summary Free Text/Dictation Patient's condition is stable. Reports significant reduction in shortness of breath. General exam; elderly male, awake alert, currently in no distress. Exam/Review of Systems Exam Vitals Vital Signs Date Temp Pulse Resp B/P (MAP) Pulse Ox O2 O2 Flow FiO2 Time Delivery Rate 09/17/18 3.0 08:55 09/17/18 84 20 97 Nasal 08:53 Cannula 09/17/18 98.4 117/69 07:55 (85) Intake and Output 09/16/18 09/16/18 09/17/18 1515:00 23:00 07:00 IntakeIntake Total 1440 ml 480 ml OutputOutput Total 500 ml 250 ml BalanceBalance 940 ml 230 ml Exam H EENT exam; supple neck, positive JVD. No lymphadenopathy. Midline trachea. No thyromegaly. No neck masses. Chest exam; diminished breath sounds bilaterally. S1-S2 audible, no murmurs. Regular rhythm. Abdomen exam; soft, nontender. No organomegaly. Bowel sounds audible. Extremity exam; no peripheral edema. CHAIRMAN CEO exam; no focal deficit. Results Result Diagram: 09/17/18 0636 09/17/18 0636 Results 24hrs Laboratory Tests Test 09/16/18 12:09 09/16/18 18:05 09/16/18 20:11 09/17/18 06:36 Bedside Glucose 158 144 247 H White Blood Count 5.2 Red Blood Count 3.67 L Hemoglobin 9.6 L Hematocrit 29.5 L Mean Corpuscular 80.4 L Volume Mean Corpuscular 26.2 L Hemoglobin Mean Corpuscular 32.5 Hemoglobin Concent Red Cell 16.6 H Distribution Width Platelet Count 167 Mean Platelet Volume 10.0 Immature 1.400 H Granulocytes % Neutrophils % 49.2 Lymphocytes % 37.5 Monocytes % 10.4 Eosinophils % 1.5 Basophils % 0.0 Nucleated Red Blood 0.0 Cells % Immature 0.070 H Granulocytes # Neutrophils # 2.5 Lymphocytes # 1.9 Monocytes # 0.5 Eosinophils # 0.1 Basophils # 0.0 Nucleated Red Blood 0.0 Cells # Sodium Level 141 Potassium Level 3.6 Chloride Level 101 Carbon Dioxide Level 26 Anion Gap 14 H Blood Urea Nitrogen 70 H Creatinine 3.04 H Est Glomerular Filtrat Rate mL/min Glucose Level 68 #L Calcium Level 8.8 Test 09/17/18 07:43 Bedside Glucose 85 Medications Medication Current Medications IV Flush (NS 3 ml) 3 ml PER PROTOCOL IV ; Start 09/11/18 at 15:00 Ondansetron HCl (Zofran Inj) 4 mg Q6H PRN IV NAUSEA/VOMITING Last administered on 09/16/18 12:47; Admin Dose 4 MG; Start 09/11/18 at 15:00 Acetaminophen (Tylenol Tab) 650 mg Q6H PRN PO .PAIN 1-3 OR TEMP Last administered on 09/16/18 11:44; Admin Dose 650 MG; Start 09/11/18 at 15:00 Acetaminophen/ Hydrocodone Bitart ([place] (5/325)) 1 tab Q6H PRN PO .MOD PAIN 4- 6; Start 09/11/18 at 15:00 Docusate Sodium (Colace) 100 mg Q12H PRN PO .CONSTIPATION; Start 09/11/18 at 15:00 Pantoprazole (Protonix Tab) 40 mg DAILY@06 PO Last administered on 09/17/18 06:19; Admin Dose 40 MG; Start 09/12/18 at 06:00 Allopurinol (Zyloprim) 100 mg DAILY PO Last administered on 09/17/18 08:32; Admin Dose 100 MG; Start 09/12/18 at 09:00 Aspirin (Halfprin) 81 mg DAILY PO Last administered on 09/17/18 08:31; Admin Dose 81 MG; Start 09/12/18 at 09:00 Atorvastatin Calcium (Lipitor) 20 mg QHS PO Last administered on 09/16/18 20:15; Admin Dose 20 MG; Start 09/11/18 at 21:00 Carvedilol (Coreg) 25 mg BID PO Last administered on 09/17/18 08:32; Admin Dose 25 MG; Start 09/11/18 at 21:00 Hydralazine HCl (Apresoline) 50 mg Q8 PO Last administered on 09/17/18 06:19; Admin Dose 50 MG; Start 09/11/18 at 22:00 Isosorbide Mononitrate (Imdur) 60 mg DAILY PO Last administered on 09/17/18 08:31; Admin Dose 60 MG; Start 09/12/18 at 09:00 Latanoprost (Xalatan) 1 drop QHS BOTH EYES Last administered on 09/16/18 20:13; Admin Dose 1 DROP; Start 09/11/18 at 21:00 Levothyroxine Sodium (Synthroid) 75 mcg BEFORE BREAKFAST PO Last administered on 09/17/18 06:18; Admin Dose 75 MCG; Start 09/12/18 at 07:00 Nateglinide (Starlix) 180 mg AC MEALS PO Last administered on 09/17/18 07:41; Admin Dose 180 MG; Start 09/11/18 at 17:25 Ticagrelor (Brilinta) 90 mg Q12 PO Last administered on 09/17/18 08:43; Admin Dose 90 MG; Start 09/11/18 at 21:00 Diagnostic Test (Pha) (Accu-Chek) 1 ea AC MEALS AND BEDTIME XX Last administered on 09/17/18 07:43; Admin Dose 1 EA; Start 09/11/18 at 17:25 Ceftriaxone Sodium 50 ml @ 100 mls/hr DAILY IVPB Last administered on 09/17/18 08:32; Admin Dose 100 MLS/HR; Start 09/11/18 at 15:30 Albuterol/ Ipratropium (Duoneb) 3 ml Q4H RESP THERAPY HHN Last administered on 09/17/18 08:52; Admin Dose 3 ML; Start 09/11/18 at 17:00 Azithromycin (Zithromax) 250 mg DAILY PO Last administered on 09/17/18 08:32; Admin Dose 250 MG; Start 09/14/18 at 09:00 Guaifenesin/ Dextromethorphan (Robitussin Dm Liquid Cup) 10 ml Q4H PRN PO COUGH Last administered on 09/17/18 06:23; Admin Dose 10 ML; Start 09/14/18 at 10:30 Furosemide (Lasix) 40 mg DAILY PO Last administered on 09/17/18 08:31; Admin Dose 40 MG; Start 09/14/18 at 11:30 Heparin Sodium (Porcine) (Heparin (5000 Units/1ml)) 5,000 unit BID SC Last administered on 09/17/18 08:43; Admin Dose 5,000 UNIT; Start 09/15/18 at 21:00 Doxycycline Hyclate 100 mg/ Sodium Chloride 250 ml @ 250 mls/hr Q12 IVPB Last administered on 09/17/18at 09:20; Admin Dose 250 MLS/HR; Start 09/16/18 at 13:00 Megestrol Acetate (Megace Susp) 400 mg BID PO Last administered on 09/17/18at 08:30; Admin Dose 400 MG; Start 09/16/18 at 14:00 CARMELO JOYA Sep 17, 2018 10:42
--- NOTE | 2018-09-17 12:42 | CONS ---
Consult Date/Type/Reason Admit Date/Time Sep 12, 2018 at 09:28 Initial Consult Date Requesting Provider: MERT BENITEZ MD Date/Time of Note DATE: 09/17/18 TIME: 12:40 Subjective NO acute events - pt stable Cr going up - ying; team follows - avoid nephrotoxic meds. Stres test results discussed with p - no intervention now with Cr high. ROS: No fever, no chills, no nausea, no vomiting, no diarrhea/constipation No recent weight changes No chest pain, no PND, no orthopnea - mild SOB, better today No dizziness, blurred vision No thirst, no heat or cold intolerance Objective Vitals Vital Signs Date Temp Pulse Resp B/P (MAP) Pulse Ox O2 O2 Flow FiO2 Time Delivery Rate 09/17/18 76 12:00 09/17/18 98.7 20 106/55 96 Nasal 11:16 (72) Cannula 09/17/18 3.0 08:55 Intake and Output 09/16/18 09/16/18 09/17/18 1515:00 23:00 07:00 IntakeIntake Total 1440 ml 480 ml OutputOutput Total 500 ml 250 ml BalanceBalance 940 ml 230 ml Results/Medications Result Diagram: 09/17/18 0636 09/17/18 0636 Results 24 hrs Laboratory Tests Test 09/16/18 18:05 09/16/18 20:11 09/17/18 06:36 09/17/18 07:43 Bedside Glucose 144 247 H 85 White Blood Count 5.2 Red Blood Count 3.67 L Hemoglobin 9.6 L Hematocrit 29.5 L Mean Corpuscular 80.4 L Volume Mean Corpuscular 26.2 L Hemoglobin Mean Corpuscular 32.5 Hemoglobin Concent Red Cell 16.6 H Distribution Width Platelet Count 167 Mean Platelet Volume 10.0 Immature 1.400 H Granulocytes % Neutrophils % 49.2 Lymphocytes % 37.5 Monocytes % 10.4 Eosinophils % 1.5 Basophils % 0.0 Nucleated Red Blood 0.0 Cells % Immature 0.070 H Granulocytes # Neutrophils # 2.5 Lymphocytes # 1.9 Monocytes # 0.5 Eosinophils # 0.1 Basophils # 0.0 Nucleated Red Blood 0.0 Cells # Sodium Level 141 Potassium Level 3.6 Chloride Level 101 Carbon Dioxide Level 26 Anion Gap 14 H Blood Urea Nitrogen 70 H Creatinine 3.04 H Est Glomerular Filtrat Rate mL/min Glucose Level 68 #L Calcium Level 8.8 Test 09/17/18 12:19 Bedside Glucose 99 Home Meds Active Scripts Furosemide* (Furosemide*) 40 Mg Tablet, 40 MG PO DAILY for 30 Days, TAB Prov:MERT BENITEZ MD 08/21/18 Albuterol Sulfate* (Proair HFA*) 8.5 Gm Hfa.aer.ad, 2 PUFF INH Q4H PRN for WHEEZING AND SOB, #1 INHALER Prov:MERT BENITEZ MD 05/19/18 Hydralazine Hcl* (Apresoline*) 50 Mg Tab, 50 MG PO Q8 for 30 Days, TAB Prov:MYRA CABRALES 05/19/18 Atorvastatin Calcium (Atorvastatin Calcium) 20 Mg Tablet, 20 MG PO QHS for 30 Days, TAB Prov:MYRA CABRALES 05/19/18 Reported Medications Latanoprost (Xalatan) 2.5 Ml Drops, 1 DROP BOTH EYES QHS, #1 BOTTLE 05/09/18 Nateglinide* (Nateglinide*) 60 Mg Tablet, 180 MG PO AC MEALS, TAB 05/09/18 Levothyroxine Sodium* (Levothyroxine Sodium*) 75 Mcg Tablet, 75 MCG PO BEFORE BREAKFAST, #30 TAB 10/27/17 Sitagliptin* (Januvia*) 50 Mg Tablet, 50 MG PO DAILY, #30 TAB 07/30/17 Isosorbide Mononitrate* (Isosorbide Mononitrate*) 60 Mg Tab.er.24h, 60 MG PO DAILY, TAB 07/30/17 Carvedilol* (Carvedilol*) 25 Mg Tablet, 25 MG PO BID, #60 TAB 07/30/17 Ticagrelor* (Brilinta*) 90 Mg Tablet, 90 MG PO Q12, TAB 07/30/17 Aspirin (Low Dose Aspirin) 81 Mg Tablet.dr, 81 MG PO DAILY, #30 TAB 07/30/17 Allopurinol* (Allopurinol*) 100 Mg Tablet, 100 MG PO DAILY, TAB 07/30/17 Medications Current Medications IV Flush (NS 3 ml) 3 ml PER PROTOCOL IV ; Start 09/11/18 at 15:00 Ondansetron HCl (Zofran Inj) 4 mg Q6H PRN IV NAUSEA/VOMITING Last administered on 09/16/18 12:47; Admin Dose 4 MG; Start 09/11/18 at 15:00 Acetaminophen (Tylenol Tab) 650 mg Q6H PRN PO .PAIN 1-3 OR TEMP Last administered on 09/16/18 11:44; Admin Dose 650 MG; Start 09/11/18 at 15:00 Acetaminophen/ Hydrocodone Bitart ([place] (5/325)) 1 tab Q6H PRN PO .MOD PAIN 4- 6; Start 09/11/18 at 15:00 Docusate Sodium (Colace) 100 mg Q12H PRN PO .CONSTIPATION; Start 09/11/18 at 15:00 Pantoprazole (Protonix Tab) 40 mg DAILY@06 PO Last administered on 09/17/18 06:19; Admin Dose 40 MG; Start 09/12/18 at 06:00 Allopurinol (Zyloprim) 100 mg DAILY PO Last administered on 09/17/18 08:32; Admin Dose 100 MG; Start 09/12/18 at 09:00 Aspirin (Halfprin) 81 mg DAILY PO Last administered on 09/17/18 08:31; Admin Dose 81 MG; Start 09/12/18 at 09:00 Atorvastatin Calcium (Lipitor) 20 mg QHS PO Last administered on 09/16/18 20:15; Admin Dose 20 MG; Start 09/11/18 at 21:00 Carvedilol (Coreg) 25 mg BID PO Last administered on 09/17/18 08:32; Admin Dose 25 MG; Start 09/11/18 at 21:00 Hydralazine HCl (Apresoline) 50 mg Q8 PO Last administered on 09/17/18 06:19; Admin Dose 50 MG; Start 09/11/18 at 22:00 Isosorbide Mononitrate (Imdur) 60 mg DAILY PO Last administered on 09/17/18 08:31; Admin Dose 60 MG; Start 09/12/18 at 09:00 Latanoprost (Xalatan) 1 drop QHS BOTH EYES Last administered on 09/16/18 20:13; Admin Dose 1 DROP; Start 09/11/18 at 21:00 Levothyroxine Sodium (Synthroid) 75 mcg BEFORE BREAKFAST PO Last administered on 09/17/18 06:18; Admin Dose 75 MCG; Start 09/12/18 at 07:00 Nateglinide (Starlix) 180 mg AC MEALS PO Last administered on 09/17/18 11:50; Admin Dose 180 MG; Start 09/11/18 at 17:25 Ticagrelor (Brilinta) 90 mg Q12 PO Last administered on 09/17/18 08:43; Admin Dose 90 MG; Start 09/11/18 at 21:00 Diagnostic Test (Pha) (Accu-Chek) 1 ea AC MEALS AND BEDTIME XX Last administered on 09/17/18 11:20; Admin Dose 1 EA; Start 09/11/18 at 17:25 Ceftriaxone Sodium 50 ml @ 100 mls/hr DAILY IVPB Last administered on 09/17/18 08:32; Admin Dose 100 MLS/HR; Start 09/11/18 at 15:30 Albuterol/ Ipratropium (Duoneb) 3 ml Q4H RESP THERAPY HHN Last administered on 09/17/18 08:52; Admin Dose 3 ML; Start 09/11/18 at 17:00 Azithromycin (Zithromax) 250 mg DAILY PO Last administered on 09/17/18 08:32; Admin Dose 250 MG; Start 09/14/18 at 09:00 Guaifenesin/ Dextromethorphan (Robitussin Dm Liquid Cup) 10 ml Q4H PRN PO COUGH Last administered on 09/17/18 11:49; Admin Dose 10 ML; Start 09/14/18 at 10:30 Furosemide (Lasix) 40 mg DAILY PO Last administered on 09/17/18 08:31; Admin Dose 40 MG; Start 09/14/18 at 11:30 Heparin Sodium (Porcine) (Heparin (5000 Units/1ml)) 5,000 unit BID SC Last administered on 09/17/18 08:43; Admin Dose 5,000 UNIT; Start 09/15/18 at 21:00 Doxycycline Hyclate 100 mg/ Sodium Chloride 250 ml @ 250 mls/hr Q12 IVPB Last administered on 09/17/18 09:20; Admin Dose 250 MLS/HR; Start 09/16/18 at 13:00 Megestrol Acetate (Megace Susp) 400 mg BID PO Last administered on 09/17/18at 08:30; Admin Dose 400 MG; Start 09/16/18 at 14:00 Assessment/Plan Hospital Course (Demo Recall) 1. Congestive heart failure exacerbation, systolic, acute on chronic - con't gentle diuresis. Better now. Euvolemic now. 2. Cardiomyopathy with decreased left ventricular ejection fraction, last known to be approximately 30% by echo in 04/2018. Con't gentle diuresis. CR 2.49 to 3.04- renal team follows. 3. History of PTCA and stent placement, most recently to right coronary artery and left main in 06/2017. NO CP now - r/o [place]. Do not advise LHC now with Cr up. 4. History of transcatheter aortic valve replacement or TAVR in 10/2017 - with good fxn by exam. 5. Hypertension - reasonably controlled. 6. Dyslipidemia. 7. Chronic kidney disease, not on hemodialysis - Cr 3.04 - renal follows. 8. Shortness of breath secondary to #1- better now 9.CAD - Stres test with mixed defect - no LHC with Cr up. DONNA MORALES MD Sep 17, 2018 12:42
--- NOTE | 2018-09-17 12:48 | CONS ---
Assessment/Plan Assessment/Plan Hospital Course (Demo Recall) ID PROGRESS NOTE CURRENT ABX: DAY #6.5 => Ceftriaxone + Add Doxy for atypical coverage S/P Azith X 4 DAYS 09/17/18 0636 09/17/18 0636 24H INTERVAL SUMMARY * Yesterday patient reported fevers w/ Low grade temps yesterday (Tmax 100.5) == Doxycycline added -- afebrile so far today * Awake, alert, dry non-productive cough - unable to expectorate congestion, feels weak DIAGNOSTIC IMAGING * 09/14/18 CXR: IMPRESSION:1. Mild cardiomegaly.2. Atherosclerosis. 3. Permanent pacemaker/internal cardiac defibrillator. 4. Otherwise unremarkable chest radiograph. * 09/15/18 [place] MPI: IMPRESSION: * 1. The type and distribution of the scintigraphic abnormalities are most consistent with a moderate size predominantly nonreversible perfusion defect in the inferior, lateral and mid to basal anterior mcclure. * 2. Mild to moderate hypokinesis of the left ventricle. * 3. The left ventricle ejection fraction at stress is 29%. * 09/11/18 CT CHEST: IMPRESSION: * Numerous nodular consolidative opacities throughout both lungs. These probably represent a multifocal pneumonia, possibly atypical, however other entities such as septic emboli or metastatic disease cannot be excluded. * Smooth interlobular septal thickening at the lung apices and bases, possibly representing early pulmonary edema. * Small bilateral pleural effusions. * Enlarged heart with coronary artery stents and a cardiac AICD. There has also been transcatheter aortic valve replacement. * Mildly enlarged main pulmonary artery, raising the possibility of pulmonary hypertension. * Mild to moderate atherosclerotic arterial calcifications. MICRO/OTHER * 09/16/18 = non e PHYSICAL EXAMINATION: GENERAL: VSS, NAD, A/A/O == generalized fatigue/malaise/weakness due to acute illness HEENT: AT, NC, anicteric, NECK: Supple, trach midline CHEST: Equal chest rise bilaterally, without dyspnea on observation HEART: Pulse RRR ABDOMEN: Soft / NT EXTREMITIES: Warm, dry SKIN: No rash, no diaphoresis ID ASSESSMENT 83 yo M admit with: 1. Acute hypoxemia on admission 2. Acute bronchitis with interval improvement == DDX Possible pneumonia per CT * 09/11/18 CT CHEST: * Numerous nodular consolidative opacities throughout both lungs. These probably represent a multifocal pneumonia, possibly atypical, however other entities such as septic emboli or metastatic disease cannot be excluded. 3. Cardiomyopathy with CHF exacerbation 4. Acute possibly on chronic kidney disease 5. Coronary artery disease with a history of aortic valve replacement 6. Diabetes 7. Hypertension (-)MRSA Nares ABX ALLERGIES: KNDA INVASIVES: PIV CURRENT ABX: DAY # DAY #6.5 => Ceftriaxone +Doxy for atypical coverage S/P Azith X4 DAYS ID RECOMMENDATIONS/PLAN: 1. Continue ABX * Doxy added for atypical coverage == low grade temps yesterday w/subjective "feverish" feeling Consultation Date/Type/Reason Admit Date/Time Sep 12, 2018 at 09:28 Initial Consult Date 09/13/18 Requesting Provider: MERT BENITEZ MD Date/Time of Note DATE: 09/17/18 TIME: 12:42 Exam/Review of Systems Exam Vitals Vital Signs Date Temp Pulse Resp B/P (MAP) Pulse Ox O2 O2 Flow FiO2 Time Delivery Rate 09/17/18 76 12:00 09/17/18 98.7 20 106/55 96 Nasal 11:16 (72) Cannula 09/17/18 3.0 08:55 Intake and Output 09/16/18 09/16/18 09/17/18 1515:00 23:00 07:00 IntakeIntake Total 1440 ml 480 ml OutputOutput Total 500 ml 250 ml BalanceBalance 940 ml 230 ml Results Result Diagram: 09/17/18 0636 09/17/18 0636 Results 24hrs Laboratory Tests Test 09/16/18 18:05 09/16/18 20:11 09/17/18 06:36 09/17/18 07:43 Bedside Glucose 144 247 H 85 White Blood Count 5.2 Red Blood Count 3.67 L Hemoglobin 9.6 L Hematocrit 29.5 L Mean Corpuscular 80.4 L Volume Mean Corpuscular 26.2 L Hemoglobin Mean Corpuscular 32.5 Hemoglobin Concent Red Cell 16.6 H Distribution Width Platelet Count 167 Mean Platelet Volume 10.0 Immature 1.400 H Granulocytes % Neutrophils % 49.2 Lymphocytes % 37.5 Monocytes % 10.4 Eosinophils % 1.5 Basophils % 0.0 Nucleated Red Blood 0.0 Cells % Immature 0.070 H Granulocytes # Neutrophils # 2.5 Lymphocytes # 1.9 Monocytes # 0.5 Eosinophils # 0.1 Basophils # 0.0 Nucleated Red Blood 0.0 Cells # Sodium Level 141 Potassium Level 3.6 Chloride Level 101 Carbon Dioxide Level 26 Anion Gap 14 H Blood Urea Nitrogen 70 H Creatinine 3.04 H Est Glomerular Filtrat Rate mL/min Glucose Level 68 #L Calcium Level 8.8 Test 09/17/18 12:19 Bedside Glucose 99 Medications Medication Current Medications IV Flush (NS 3 ml) 3 ml PER PROTOCOL IV ; Start 09/11/18 at 15:00 Ondansetron HCl (Zofran Inj) 4 mg Q6H PRN IV NAUSEA/VOMITING Last administered on 09/16/18 12:47; Admin Dose 4 MG; Start 09/11/18 at 15:00 Acetaminophen (Tylenol Tab) 650 mg Q6H PRN PO .PAIN 1-3 OR TEMP Last administered on 09/16/18 11:44; Admin Dose 650 MG; Start 09/11/18 at 15:00 Acetaminophen/ Hydrocodone Bitart ([place] (5/325)) 1 tab Q6H PRN PO .MOD PAIN 4- 6; Start 09/11/18 at 15:00 Docusate Sodium (Colace) 100 mg Q12H PRN PO .CONSTIPATION; Start 09/11/18 at 15:00 Pantoprazole (Protonix Tab) 40 mg DAILY@06 PO Last administered on 09/17/18 06:19; Admin Dose 40 MG; Start 09/12/18 at 06:00 Allopurinol (Zyloprim) 100 mg DAILY PO Last administered on 09/17/18 08:32; Admin Dose 100 MG; Start 09/12/18 at 09:00 Aspirin (Halfprin) 81 mg DAILY PO Last administered on 09/17/18 08:31; Admin Dose 81 MG; Start 09/12/18 at 09:00 Atorvastatin Calcium (Lipitor) 20 mg QHS PO Last administered on 09/16/18 20:15; Admin Dose 20 MG; Start 09/11/18 at 21:00 Carvedilol (Coreg) 25 mg BID PO Last administered on 09/17/18 08:32; Admin Dose 25 MG; Start 09/11/18 at 21:00 Hydralazine HCl (Apresoline) 50 mg Q8 PO Last administered on 09/17/18 06:19; Admin Dose 50 MG; Start 09/11/18 at 22:00 Isosorbide Mononitrate (Imdur) 60 mg DAILY PO Last administered on 09/17/18 08:31; Admin Dose 60 MG; Start 09/12/18 at 09:00 Latanoprost (Xalatan) 1 drop QHS BOTH EYES Last administered on 09/16/18 20:13; Admin Dose 1 DROP; Start 09/11/18 at 21:00 Levothyroxine Sodium (Synthroid) 75 mcg BEFORE BREAKFAST PO Last administered on 09/17/18 06:18; Admin Dose 75 MCG; Start 09/12/18 at 07:00 Nateglinide (Starlix) 180 mg AC MEALS PO Last administered on 09/17/18 11:50; Admin Dose 180 MG; Start 09/11/18 at 17:25 Ticagrelor (Brilinta) 90 mg Q12 PO Last administered on 09/17/18 08:43; Admin Dose 90 MG; Start 09/11/18 at 21:00 Diagnostic Test (Pha) (Accu-Chek) 1 ea AC MEALS AND BEDTIME XX Last adm inistered on 09/17/18 11:20; Admin Dose 1 EA; Start 09/11/18 at 17:25 Ceftriaxone Sodium 50 ml @ 100 mls/hr DAILY IVPB Last administered on 09/17/18 08:32; Admin Dose 100 MLS/HR; Start 09/11/18 at 15:30 Albuterol/ Ipratropium (Duoneb) 3 ml Q4H RESP THERAPY HHN Last administered on 09/17/18 08:52; Admin Dose 3 ML; Start 09/11/18 at 17:00 Azithromycin (Zithromax) 250 mg DAILY PO Last administered on 09/17/18 08:32; Admin Dose 250 MG; Start 09/14/18 at 09:00 Guaifenesin/ Dextromethorphan (Robitussin Dm Liquid Cup) 10 ml Q4H PRN PO COUGH Last administered on 09/17/18 11:49; Admin Dose 10 ML; Start 09/14/18 at 10:30 Furosemide (Lasix) 40 mg DAILY PO Last administered on 09/17/18 08:31; Admin Dose 40 MG; Start 09/14/18 at 11:30 Heparin Sodium (Porcine) (Heparin (5000 Units/1ml)) 5,000 unit BID SC Last administered on 09/17/18at 08:43; Admin Dose 5,000 UNIT; Start 09/15/18 at 21:00 Doxycycline Hyclate 100 mg/ Sodium Chloride 250 ml @ 250 mls/hr Q12 IVPB Last administered on 09/17/18at 09:20; Admin Dose 250 MLS/HR; Start 09/16/18 at 13:00 Megestrol Acetate (Megace Susp) 400 mg BID PO Last administered on 09/17/18at 08:30; Admin Dose 400 MG; Start 09/16/18 at 14:00 CHRIS GARNER NP Sep 17, 2018 12:48
--- NOTE | 2018-09-17 17:22 | PN ---
Date/Time of Note Date/Time of Note DATE: 09/17/18 TIME: 17:18 Assessment/Plan VTE Prophylaxis Risk score (from [facility])>0 risk: 7 SCD applied (from [facility]): Yes SCD contraindicated: other Pharmacological prophylaxis: other Pharm contraindication: other Lines/Catheters IV Catheter Type (from [place]): [place] Urinary Cath still in place: No Assessment/Plan Hospital Course 1. congestive heart failure exacerbation, acute on chronic. CT of the chest shows Numerous nodular consolidative opacities 2. History of acute on chronic congestive heart failure. 3. Chronic kidney disease stage III. now with KEN due to diuresis 4. Elevated BNP due to congestive heart failure. 5. Diabetes. 6. Hypertension. 7. Hyperlipidemia. 8. Cardiomyopathy with reduced EF 9. History of transaortic valve replacement. 10. Normocytic hypochromic anemia 2/2 kidney disease. plan continue same per pulmonary Result Diagram: 09/17/18 0636 09/17/18 0636 Results 24hrs Laboratory Tests Test 09/16/18 18:05 09/16/18 20:11 09/17/18 06:36 09/17/18 07:43 Bedside Glucose 144 247 H 85 White Blood Count 5.2 Red Blood Count 3.67 L Hemoglobin 9.6 L Hematocrit 29.5 L Mean Corpuscular 80.4 L Volume Mean Corpuscular 26.2 L Hemoglobin Mean Corpuscular 32.5 Hemoglobin Concent Red Cell 16.6 H Distribution Width Platelet Count 167 Mean Platelet Volume 10.0 Immature 1.400 H Granulocytes % Neutrophils % 49.2 Lymphocytes % 37.5 Monocytes % 10.4 Eosinophils % 1.5 Basophils % 0.0 Nucleated Red Blood 0.0 Cells % Immature 0.070 H Granulocytes # Neutrophils # 2.5 Lymphocytes # 1.9 Monocytes # 0.5 Eosinophils # 0.1 Basophils # 0.0 Nucleated Red Blood 0.0 Cells # Sodium Level 141 Potassium Level 3.6 Chloride Level 101 Carbon Dioxide Level 26 Anion Gap 14 H Blood Urea Nitrogen 70 H Creatinine 3.04 H Est Glomerular Filtrat Rate mL/min Glucose Level 68 #L Calcium Level 8.8 Test 09/17/18 12:19 09/17/18 15:40 Bedside Glucose 99 Urine Color YELLOW Urine Clarity CLEAR Urine pH 5.0 Urine Specific 1.009 [place] Urine Ketones NEGATIVE Urine Nitrite NEGATIVE Urine Bilirubin NEGATIVE Urine Urobilinogen NEGATIVE Urine Leukocyte NEGATIVE Esterase Urine Hemoglobin NEGATIVE Urine Glucose NEGATIVE Urine Total Protein NEGATIVE Subjective 24 Hr Interval Summary Respiratory: no complaints Cardiovascular: no complaints Gastrointestinal: no complaints Exam/Review of Systems Exam Vitals Vital Signs Date Temp Pulse Resp B/P (MAP) Pulse Ox O2 O2 Flow FiO2 Time Delivery Rate 09/17/18 74 20 95 Nasal 3.0 16:24 Cannula 09/17/18 98.8 98/52 (67) 15:05 Intake and Output 09/16/18 09/16/18 09/17/18 1515:00 23:00 07:00 IntakeIntake Total 1440 ml 480 ml OutputOutput Total 500 ml 250 ml BalanceBalance 940 ml 230 ml Neck: supple Respiratory: clear to auscultation Cardiovascular: regular rate and rhythm Gastrointestinal: soft, bowel sounds (+) Extremities: No edema Results Results 24hrs Laboratory Tests Test 09/16/18 18:05 09/16/18 20:11 09/17/18 06:36 09/17/18 07:43 Bedside Glucose 144 247 H 85 White Blood Count 5.2 Red Blood Count 3.67 L Hemoglobin 9.6 L Hematocrit 29.5 L Mean Corpuscular 80.4 L Volume Mean Corpuscular 26.2 L Hemoglobin Mean Corpuscular 32.5 Hemoglobin Concent Red Cell 16.6 H Distribution Width Platelet Count 167 Mean Platelet Volume 10.0 Immature 1.400 H Granulocytes % Neutrophils % 49.2 Lymphocytes % 37.5 Monocytes % 10.4 Eosinophils % 1.5 Basophils % 0.0 Nucleated Red Blood 0.0 Cells % Immature 0.070 H Granulocytes # Neutrophils # 2.5 Lymphocytes # 1.9 Monocytes # 0.5 Eosinophils # 0.1 Basophils # 0.0 Nucleated Red Blood 0.0 Cells # Sodium Level 141 Potassium Level 3.6 Chloride Level 101 Carbon Dioxide Level 26 Anion Gap 14 H Blood Urea Nitrogen 70 H Creatinine 3.04 H Est Glomerular Filtrat Rate mL/min Glucose Level 68 #L Calcium Level 8.8 Test 09/17/18 12:19 09/17/18 15:40 Bedside Glucose 99 Urine Color YELLOW Urine Clarity CLEAR Urine pH 5.0 Urine Specific 1.009 [place] Urine Ketones NEGATIVE Urine Nitrite NEGATIVE Urine Bilirubin NEGATIVE Urine Urobilinogen NEGATIVE Urine Leukocyte NEGATIVE Esterase Urine Hemoglobin NEGATIVE Urine Glucose NEGATIVE Urine Total Protein NEGATIVE Medications Medication Current Medications IV Flush (NS 3 ml) 3 ml PER PROTOCOL IV ; Start 09/11/18 at 15:00 Ondansetron HCl (Zofran Inj) 4 mg Q6H PRN IV NAUSEA/VOMITING Last administered on 09/16/18 12:47; Admin Dose 4 MG; Start 09/11/18 at 15:00 Acetaminophen (Tylenol Tab) 650 mg Q6H PRN PO .PAIN 1-3 OR TEMP Last administered on 09/16/18 11:44; Admin Dose 650 MG; Start 09/11/18 at 15:00 Acetaminophen/ Hydrocodone Bitart ([place] (5/325)) 1 tab Q6H PRN PO .MOD PAIN 4- 6; Start 09/11/18 at 15:00 Docusate Sodium (Colace) 100 mg Q12H PRN PO .CONSTIPATION; Start 09/11/18 at 15:00 Pantoprazole (Protonix Tab) 40 mg DAILY@06 PO Last administered on 09/17/18 06:19; Admin Dose 40 MG; Start 09/12/18 at 06:00 Allopurinol (Zyloprim) 100 mg DAILY PO Last administered on 09/17/18 08:32; Admin Dose 100 MG; Start 09/12/18 at 09:00 Aspirin (Halfprin) 81 mg DAILY PO Last administered on 09/17/18 08:31; Admin Dose 81 MG; Start 09/12/18 at 09:00 Atorvastatin Calcium (Lipitor) 20 mg QHS PO Last administered on 09/16/18 20:15; Admin Dose 20 MG; Start 09/11/18 at 21:00 Carvedilol (Coreg) 25 mg BID PO Last administered on 09/17/18 08:32; Admin Dose 25 MG; Start 09/11/18 at 21:00 Hydralazine HCl (Apresoline) 50 mg Q8 PO Last administered on 09/17/18 06:19; Admin Dose 50 MG; Start 09/11/18 at 22:00 Isosorbide Mononitrate (Imdur) 60 mg DAILY PO Last administered on 09/17/18 08:31; Admin Dose 60 MG; Start 09/12/18 at 09:00 Latanoprost (Xalatan) 1 drop QHS BOTH EYES Last administered on 09/16/18 20:13 ; Admin Dose 1 DROP; Start 09/11/18 at 21:00 Levothyroxine Sodium (Synthroid) 75 mcg BEFORE BREAKFAST PO Last administered on 09/17/18 06:18; Admin Dose 75 MCG; Start 09/12/18 at 07:00 Nateglinide (Starlix) 180 mg AC MEALS PO Last administered on 09/17/18 11:50; Admin Dose 180 MG; Start 09/11/18 at 17:25 Ticagrelor (Brilinta) 90 mg Q12 PO Last administered on 09/17/18 08:43; Admin Dose 90 MG; Start 09/11/18 at 21:00 Diagnostic Test (Pha) (Accu-Chek) 1 ea AC MEALS AND BEDTIME XX Last ad ministered on 09/17/18 11:20; Admin Dose 1 EA; Start 09/11/18 at 17:25 Ceftriaxone Sodium 50 ml @ 100 mls/hr DAILY IVPB Last administered on 09/17/18 08:32; Admin Dose 100 MLS/HR; Start 09/11/18 at 15:30 Albuterol/ Ipratropium (Duoneb) 3 ml Q4H RESP THERAPY HHN Last administered on 09/17/18 16:24; Admin Dose 3 ML; Start 09/11/18 at 17:00 Guaifenesin/ Dextromethorphan (Robitussin Dm Liquid Cup) 10 ml Q4H PRN PO COUGH Last administered on 09/17/18 11:49; Admin Dose 10 ML; Start 09/14/18 at 10:30 Furosemide (Lasix) 40 mg DAILY PO Last administered on 09/17/18 08:31; Admin Dose 40 MG; Start 09/14/18 at 11:30 Heparin Sodium (Porcine) (Heparin (5000 Units/1ml)) 5,000 unit BID SC Last administered on 09/17/18 08:43; Admin Dose 5,000 UNIT; Start 09/15/18 at 21:00 Doxycycline Hyclate 100 mg/ Sodium Chloride 250 ml @ 250 mls/hr Q12 IVPB Last administered on 09/17/18 09:20; Admin Dose 250 MLS/HR; Start 09/16/18 at 13:00 Megestrol Acetate (Megace Susp) 400 mg BID PO Last administered on 3/31/19at 08:30; Admin Dose 400 MG; Start 09/16/18 at 14:00 KIARA RING MD Sep 17, 2018 17:22
[2018-09-17] MEDS: NATEGLINIDE 120 MG TAB PO SCH (17:39)
[2018-09-17] MEDS: ATORVASTATIN 20 MG TAB PO SCH (20:25)
[2018-09-17] MEDS: LATANOPROST 0.005% 2.5 ML OPH BOTH EYES SCH (20:25)
[2018-09-18] VITALS (13 sets, daily range): BP systolic 90–121; BP diastolic 51–58; PULSE 71–82; RESP 18–20
[2018-09-18] MEDS: ALBUTEROL/IPRATROPIUM (NEB) 3 ML AMP HHN SCH ×6 (01:00→21:00)
[2018-09-18] MEDS: PANTOPRAZOLE (EC) 40 MG TAB PO SCH (05:43)
[2018-09-18] MEDS: LEVOTHYROXINE 75 MCG TAB PO SCH (05:44)
[2018-09-18] MEDS: ACCU-CHEK XX SCH ×4 (07:25→21:00)
[2018-09-18] MEDS: NATEGLINIDE 120 MG TAB PO SCH ×2 (07:25→12:12)
[2018-09-18] MEDS: DOXYCYCLINE 100 MG in SOD CHLORIDE 0.9% 250 ML IVPB SCH (09:00)
[2018-09-18] MEDS: GUAIFENESIN/DM 5ML CUP PO PRN (09:24)
[2018-09-18] MEDS: CEFTRIAXONE 1 GM/50 ML (PMX) 50 ML IVPB SCH (09:24)
[2018-09-18] MEDS: MEGESTROL (40 MG/ML) 10ML CUP PO SCH ×2 (09:24→22:02)
[2018-09-18] MEDS: ASPIRIN (EC) 81 MG TAB PO SCH (09:25)
[2018-09-18] MEDS: ONDANSETRON 4 MG INJ IV PRN (09:25)
[2018-09-18] MEDS: ALLOPURINOL 100 MG TAB PO SCH (09:25)
[2018-09-18] MEDS: FUROSEMIDE 40 MG TAB PO SCH (09:26)
[2018-09-18] MEDS: ISOSORBIDE MONONITRATE(SR)60 MG TAB PO SCH (09:27)
[2018-09-18] MEDS: TICAGRELOR 90 MG TABLET PO SCH ×2 (09:41→22:13)
[2018-09-18] MEDS: HEPARIN 5,000 UNIT/1 ML VIAL SC SCH ×2 (09:41→22:12)
[2018-09-18] MEDS ORDERED: POTASSIUM CHLORIDE (SR) 20 MEQ TAB PO STA (10:54)
--- NOTE | 2018-09-18 10:56 | PN ---
Date/Time of Note Date/Time of Note DATE: 09/18/18 TIME: 10:56 Assessment/Plan VTE Prophylaxis Risk score (from Nsg)>0 risk: 9 SCD applied (from Nsg): Yes Lines/Catheters IV Catheter Type (from Nrs): Saline Lock Urinary Cath still in place: No Assessment/Plan Hospital Course 83-year-old male who presented with: 1. Shortness of breath likely secondary to congestive heart failure exacerbation, acute on chronic. However, the patient also had low-grade fevers. We cannot rule out underlying pneumonia. CT of the chest shows Numerous nodular consolidative opacities throughout both lungs. These probably represent a multifocal pneumonia, possibly atypical, however other entities such as septic emboli or metastatic disease cannot be excluded. 2. History of acute on chronic congestive heart failure. 3. Chronic kidney disease stage III. now with KEN due to diuresis 4. Elevated BNP due to congestive heart failure. 5. Diabetes. 6. Hypertension. 7. Hyperlipidemia. 8. 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 9. History of transaortic valve replacement. Sivakumar -Continue with Rocephin/azithromycin, - hold diuretics due to rising Cr -Patient is not a candidate for any kind of biopsy per pulmonary due to her advanced comorbidities - monitor Cr -Echo worsening EF of 25% -CEA, CA 189 and PSA wnl -Agree with aspirin statin Brilinta Coreg - V/Q negative for PE - GI/DVT prophylaxsis - fu with pulmonary /cardiac recs/ID Result Diagram: 09/17/18 0636 09/18/18 0627 Results 24hrs Laboratory Tests Test 09/17/18 12:19 09/17/18 15:40 09/17/18 17:43 09/17/18 20:23 Bedside Glucose 99 71 110 Urine Color YELLOW Urine Clarity CLEAR Urine pH 5.0 Urine Specific 1.009 [place] Urine Ketones NEGATIVE Urine Nitrite NEGATIVE Urine Bilirubin NEGATIVE Urine Urobilinogen NEGATIVE Urine Leukocyte NEGATIVE Esterase Urine Hemoglobin NEGATIVE Urine Glucose NEGATIVE Urine Total Protein NEGATIVE Test 09/18/18 06:27 09/18/18 09:07 Sodium Level 141 Potassium Level 3.2 L Chloride Level 102 Carbon Dioxide Level 23 Anion Gap 16 H Blood Urea Nitrogen 69 H Creatinine 2.67 H Est Glomerular Filtrat Rate mL/min Glucose Level 64 L Calcium Level 8.8 Bedside Glucose 107 Exam/Review of Systems Exam Vitals Vital Signs Date Temp Pulse Resp B/P (MAP) Pulse Ox O2 O2 Flow FiO2 Time Delivery Rate 09/18/18 98 3.0 09:45 09/18/18 76 16 Nasal 09:44 Cannula 09/18/18 99.0 121/57 07:43 (78) Intake and Output 09/17/18 09/17/18 09/18/18 1515:00 23:00 07:00 IntakeIntake Total 1390 ml 150 ml OutputOutput Total 1100 ml BalanceBalance 290 ml 150 ml Results Results 24hrs Laboratory Tests Test 09/17/18 12:19 09/17/18 15:40 09/17/18 17:43 09/17/18 20:23 Bedside Glucose 99 71 110 Urine Color YELLOW Urine Clarity CLEAR Urine pH 5.0 Urine Specific 1.009 [place] Urine Ketones NEGATIVE Urine Nitrite NEGATIVE Urine Bilirubin NEGATIVE Urine Urobilinogen NEGATIVE Urine Leukocyte NEGATIVE Esterase Urine Hemoglobin NEGATIVE Urine Glucose NEGATIVE Urine Total Protein NEGATIVE Test 09/18/18 06:27 09/18/18 09:07 Sodium Level 141 Potassium Level 3.2 L Chloride Level 102 Carbon Dioxide Level 23 Anion Gap 16 H Blood Urea Nitrogen 69 H Creatinine 2.67 H Est Glomerular Filtrat Rate mL/min Glucose Level 64 L Calcium Level 8.8 Bedside Glucose 107 Medications Medication Current Medications IV Flush (NS 3 ml) 3 ml PER PROTOCOL IV ; Start 09/11/18 at 15:00 Ondansetron HCl (Zofran Inj) 4 mg Q6H PRN IV NAUSEA/VOMITING Last administered on 09/18/18at 09:25; Admin Dose 4 MG; Start 09/11/18 at 15:00 Acetaminophen (Tylenol Tab) 650 mg Q6H PRN PO .PAIN 1-3 OR TEMP Last administered on 09/16/18at 11:44; Admin Dose 650 MG; Start 09/11/18 at 15:00 Acetaminophen/ Hydrocodone Bitart ([place] (5/325)) 1 tab Q6H PRN PO .MOD PAIN 4- 6; Start 09/11/18 at 15:00 Docusate Sodium (Colace) 100 mg Q12H PRN PO .CONSTIPATION; Start 09/11/18 at 15:00 Pantoprazole (Protonix Tab) 40 mg DAILY@06 PO Last administered on 09/18/18at 05:43; Admin Dose 40 MG; Start 09/12/18 at 06:00 Allopurinol (Zyloprim) 100 mg DAILY PO Last administered on 09/18/18 09:25; Admin Dose 100 MG; Start 09/12/18 at 09:00 Aspirin (Halfprin) 81 mg DAILY PO Last administered on 09/18/18 09:25; Admin Dose 81 MG; Start 09/12/18 at 09:00 Atorvastatin Calcium (Lipitor) 20 mg QHS PO Last administered on 09/17/18 20:25; Admin Dose 20 MG; Start 09/11/18 at 21:00 Carvedilol (Coreg) 25 mg BID PO Last administered on 09/18/18 09:27; Admin Dose 25 MG; Start 09/11/18 at 21:00 Hydralazine HCl (Apresoline) 50 mg Q8 PO Last administered on 09/18/18 05:44; Admin Dose 50 MG; Start 09/11/18 at 22:00 Isosorbide Mononitrate (Imdur) 60 mg DAILY PO Last administered on 09/18/18 09:27; Admin Dose 60 MG; Start 09/12/18 at 09:00 Latanoprost (Xalatan) 1 drop QHS BOTH EYES Last administered on 09/17/18 20:25; Admin Dose 1 DROP; Start 09/11/18 at 21:00 Levothyroxine Sodium (Synthroid) 75 mcg BEFORE BREAKFAST PO Last administered on 09/18/18 05:44; Admin Dose 75 MCG; Start 09/12/18 at 07:00 Nateglinide (Starlix) 180 mg AC MEALS PO Last administered on 09/17/18 11:50; Admin Dose 180 MG; Start 09/11/18 at 17:25; Status Hold Ticagrelor (Brilinta) 90 mg Q12 PO Last administered on 09/18/18 09:41; Admin Dose 90 MG; Start 09/11/18 at 21:00 Diagnostic Test (Pha) (Accu-Chek) 1 ea AC MEALS AND BEDTIME XX Last administered on 09/18/18 07:25; Admin Dose 1 EA; Start 09/11/18 at 17:25 Ceftriaxone Sodium 50 ml @ 100 mls/hr DAILY IVPB Last administered on 09/18/18 09:24; Admin Dose 100 MLS/HR; Start 09/11/18 at 15:30 Albuterol/ Ipratropium (Duoneb) 3 ml Q4H RESP THERAPY HHN Last administered on 09/18/18 09:41; Admin Dose 3 ML; Start 09/11/18 at 17:00 Guaifenesin/ Dextromethorphan (Robitussin Dm Liquid Cup) 10 ml Q4H PRN PO COUGH Last administered on 09/18/18 09:24; Admin Dose 10 ML; Start 09/14/18 at 10:30 Heparin Sodium (Porcine) (Heparin (5000 Units/1ml)) 5,000 unit BID SC Last administered on 09/18/18 09:41; Admin Dose 5,000 UNIT; Start 09/15/18 at 21:00 Doxycycline Hyclate 100 mg/ Sodium Chloride 250 ml @ 250 mls/hr Q12 IVPB Last administered on 09/18/18 09:00; Admin Dose 250 MLS/HR; Start 09/16/18 at 13:00 Megestrol Acetate (Megace Susp) 400 mg BID PO Last administered on 09/18/18 09:24; Admin Dose 400 MG; Start 09/16/18 at 14:00 Nateglinide (Starlix) 180 mg AC MEALS PO Last administered on 09/17/18 17:39; Admin Dose 180 MG; Start 09/17/18 at 17:30 Potassium Chloride (Klor-Con 20) 40 meq ONCE STAT PO ; Start 09/18/18 at 10:54; Stop 09/18/18 at 10:55; Status UNMRET CHAN MD Sep 18, 2018 10:56
--- NOTE | 2018-09-18 10:59 | PN ---
Date/Time of Note Date/Time of Note DATE: 09/18/18 TIME: 10:57 Assessment/Plan VTE Prophylaxis Risk score (from [facility])>0 risk: 9 SCD applied (from [facility]): Yes Pharmacological prophylaxis: NA/contraindicated Pharm contraindication: low risk/ambulating Lines/Catheters IV C[facility]ter Type (from [facility] Saline Lock Urinary Cath still in place: No Assessment/Plan Hospital Course 83-year-old male who presented with: 1. Shortness of breath likely secondary to congestive heart failure exacerbation, acute on chronic. However, the patient also had low-grade fevers. We cannot rule out underlying pneumonia. CT of the chest shows Numerous nodular consolidative opacities throughout both lungs. These probably represent a multifocal pneumonia, possibly atypical, however other entities such as septic emboli or metastatic disease cannot be excluded. 2. History of acute on chronic congestive heart failure. 3. Chronic kidney disease stage III. now with KEN due to diuresis 4. Elevated BNP due to congestive heart failure. 5. Diabetes. 6. Hypertension. 7. Hyperlipidemia. 8. 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 9. History of transaortic valve replacement. Sivakumar -Continue with Rocephin, doxycycline per ID - hold diuretics due to rising Cr -Patient is not a candidate for any kind of biopsy per pulmonary due to her advanced comorbidities as patient will need VATS which is very invasive procedure given her given his age and comorbidities - monitor Cr -Echo worsening EF of 25% -CEA, CA 189 and PSA wnl -Agree with aspirin statin Brilinta Coreg -Cardiac stress test reviewed results however patient is not a candidate for any angiogram due to renal failure - V/Q negative for PE - GI/DVT prophylaxsis - fu with pulmonary /cardiac recs/ID -Repeat chest x-ray -Oncology consult for possible multiple nodules -cocci titers pending Will talk to the son about goals of care , overall condition and treatment Result Diagram: 09/17/18 0636 09/18/18 0627 Results 24hrs Laboratory Tests Test 09/17/18 12:19 09/17/18 15:40 09/17/18 17:43 09/17/18 20:23 Bedside Glucose 99 71 110 Urine Color YELLOW Urine Clarity CLEAR Urine pH 5.0 Urine Specific 1.009 [place] Urine Ketones NEGATIVE Urine Nitrite NEGATIVE Urine Bilirubin NEGATIVE Urine Urobilinogen NEGATIVE Urine Leukocyte NEGATIVE Esterase Urine Hemoglobin NEGATIVE Urine Glucose NEGATIVE Urine Total Protein NEGATIVE Test 09/18/18 06:27 09/18/18 09:07 Sodium Level 141 Potassium Level 3.2 L Chloride Level 102 Carbon Dioxide Level 23 Anion Gap 16 H Blood Urea Nitrogen 69 H Creatinine 2.67 H Est Glomerular Filtrat Rate mL/min Glucose Level 64 L Calcium Level 8.8 Bedside Glucose 107 Subjective 24 Hr Interval Summary Free Text/Dictation Patient still having low-grade fevers. Cough+ Exam/Review of Systems Exam Vitals Vital Signs Date Temp Pulse Resp B/P (MAP) Pulse Ox O2 O2 Flow FiO2 Time Delivery Rate 09/18/18 98 3.0 09:45 09/18/18 76 16 Nasal 09:44 Cannula 09/18/18 99.0 121/57 07:43 (78) Intake and Output 09/17/18 09/17/18 09/18/18 1515:00 23:00 07:00 IntakeIntake Total 1390 ml 150 ml OutputOutput Total 1100 ml BalanceBalance 290 ml 150 ml Exam GENERAL: The patient is awake, alert, oriented, does not appear to in any acute distress. HEENT: Pupils are equal, round, react to light. NECK: Supple. No JVD. HEART: Regular rate and rhythm. LUNGS: few rhonchi ABDOMEN: Soft, nontender, nondistended, positive normoactive bowel sounds. The patient is obese. EXTREMITIES: Trace edema. Results Results 24hrs Laboratory Tests Test 09/17/18 12:19 09/17/18 15:40 09/17/18 17:43 09/17/18 20:23 Bedside Glucose 99 71 110 Urine Color YELLOW Urine Clarity CLEAR Urine pH 5.0 Urine Specific 1.009 [place] Urine Ketones NEGATIVE Urine Nitrite NEGATIVE Urine Bilirubin NEGATIVE Urine Urobilinogen NEGATIVE Urine Leukocyte NEGATIVE Esterase Urine Hemoglobin NEGATIVE Urine Glucose NEGATIVE Urine Total Protein NEGATIVE Test 09/18/18 06:27 09/18/18 09:07 Sodium Level 141 Potassium Level 3.2 L Chloride Level 102 Carbon Dioxide Level 23 Anion Gap 16 H Blood Urea Nitrogen 69 H Creatinine 2.67 H Est Glomerular Filtrat Rate mL/min Glucose Level 64 L Calcium Level 8.8 Bedside Glucose 107 Medications Medication Current Medications IV Flush (NS 3 ml) 3 ml PER PROTOCOL IV ; Start 09/11/18 at 15:00 Ondansetron HCl (Zofran Inj) 4 mg Q6H PRN IV NAUSEA/VOMITING Last administered on 09/18/18 09:25; Admin Dose 4 MG; Start 09/11/18 at 15:00 Acetaminophen (Tylenol Tab) 650 mg Q6H PRN PO .PAIN 1-3 OR TEMP Last administered on 09/16/18 11:44; Admin Dose 650 MG; Start 09/11/18 at 15:00 Acetaminophen/ Hydrocodone Bitart ([place] (5/325)) 1 tab Q6H PRN PO .MOD PAIN 4- 6; Start 09/11/18 at 15:00 Docusate Sodium (Colace) 100 mg Q12H PRN PO .CONSTIPATION; Start 09/11/18 at 15:00 Pantoprazole (Protonix Tab) 40 mg DAILY@06 PO Last administered on 09/18/18 05:43; Admin Dose 40 MG; Start 09/12/18 at 06:00 Allopurinol (Zyloprim) 100 mg DAILY PO Last administered on 09/18/18 09:25; Admin Dose 100 MG; Start 09/12/18 at 09:00 Aspirin (Halfprin) 81 mg DAILY PO Last administered on 09/18/18 09:25; Admin Dose 81 MG; Start 09/12/18 at 09:00 Atorvastatin Calcium (Lipitor) 20 mg QHS PO Last administered on 09/17/18 20:25; Admin Dose 20 MG; Start 09/11/18 at 21:00 Carvedilol (Coreg) 25 mg BID PO Last administered on 09/18/18 09:27; Admin Dose 25 MG; Start 09/11/18 at 21:00 Hydralazine HCl (Apresoline) 50 mg Q8 PO Last administered on 09/18/18 05:44; Admin Dose 50 MG; Start 09/11/18 at 22:00 Isosorbide Mononitrate (Imdur) 60 mg DAILY PO Last administered on 09/18/18 09:27; Admin Dose 60 MG; Start 09/12/18 at 09:00 Latanoprost (Xalatan) 1 drop QHS BOTH EYES Last administered on 09/17/18 20:25; Admin Dose 1 DROP; Start 09/11/18 at 21:00 Levothyroxine Sodium (Synthroid) 75 mcg BEFORE BREAKFAST PO Last administered on 09/18/18 05:44; Admin Dose 75 MCG; Start 09/12/18 at 07:00 Nateglinide (Starlix) 180 mg AC MEALS PO Last administered on 09/17/18 11:50; Admin Dose 180 MG; Start 09/11/18 at 17:25; Status Hold Ticagrelor (Brilinta) 90 mg Q12 PO Last administered on 09/18/18 09:41; Admin Dose 90 MG; Start 09/11/18 at 21:00 Diagnostic Test (Pha) (Accu-Chek) 1 ea AC MEALS AND BEDTIME XX Last administered on 09/18/18 07:25; Admin Dose 1 EA; Start 09/11/18 at 17:25 Ceftriaxone Sodium 50 ml @ 100 mls/hr DAILY IVPB Last administered on 09/18/18 09:24; Admin Dose 100 MLS/HR; Start 09/11/18 at 15:30 Albuterol/ Ipratropium (Duoneb) 3 ml Q4H RESP THERAPY HHN Last administered on 09/18/18 09:41; Admin Dose 3 ML; Start 09/11/18 at 17:00 Guaifenesin/ Dextromethorphan (Robitussin Dm Liquid Cup) 10 ml Q4H PRN PO COUGH Last administered on 09/18/18 09:24; Admin Dose 10 ML; Start 09/14/18 at 10:30 Heparin Sodium (Porcine) (Heparin (5000 Units/1ml)) 5,000 unit BID SC Last administered on 09/18/18 09:41; Admin Dose 5,000 UNIT; Start 09/15/18 at 21:00 Doxycycline Hyclate 100 mg/ Sodium Chloride 250 ml @ 250 mls/hr Q12 IVPB Last administered on 09/18/18 09:00; Admin Dose 250 MLS/HR; Start 09/16/18 at 13:00 Megestrol Acetate (Megace Susp) 400 mg BID PO Last administered on 09/18/18 09:24; Admin Dose 400 MG; Start 09/16/18 at 14:00 Nateglinide (Starlix) 180 mg AC MEALS PO Last administered on 09/17/18 17:39; Admin Dose 180 MG; Start 09/17/18 at 17:30 Potassium Chloride (Klor-Con 20) 40 meq ONCE STAT PO ; Start 09/18/18 at 10:54; Stop 09/18/18 at 10:55; Status UNV MERT BENITEZ MD Sep 18, 2018 10:59
--- NOTE | 2018-09-18 11:09 | CONS ---
Assessment/Plan Assessment/Plan Assessment/Plan (Daily) Assessment and recommendations; 1. Patient admitted for CHF exacerbation due to underlying severe cardiomyopathy. Clinically improving. 2. Chronic renal insufficiency. 3. History of transcutaneous aortic valve replacement. 4. Hypertension and gout. 5. Chronic anemia. 6. History of hypothyroidism. 7. Nonspecific nodules seen on CT imaging of the chest. Significance of that is unclear at this point. Continue current supportive care. Consider discharge. Because of multiple underlying comorbidities patient is at high risk for lung biopsy as he would require a VATS procedure. Clinically there is no indication to suggest infective process however underlying malignancy cannot be ruled out. Even if the lesions are malignant, patient is in no clinical condition to undergo any kind of treatment. Discussion will be held with the patient's family by patient's primary care physician whom he follows up regularly. Case discussed with Dr. Pederson. Consultation Date/Type/Reason Admit Date/Time Sep 12, 2018 at 09:28 Initial Consult Date 09/13/18 Type of Consult Pulmonary pulmonary consult requested for evaluation of hypoxemia. Patient is a very pleasant 83-year-old gentleman who came into the hospital with a few days history of increasing shortness of breath. Patient denies any chest pain, wheezing, cough, sputum production hemoptysis, any fever or chills. Upon evaluation further workup was done including a chest x-ray as well as CT chest and BNP level which are consistent with exacerbation of underlying cardiomyopathy with CHF. Patient feeling somewhat better since admission. Complains of chronic dyspnea on exertion. Past medical history; 1. Cardiomyopathy with EF of around 25%. 2. Chronic renal insufficiency. 3. History of diabetes and hypertension. 4. Status post transcutaneous aortic valve replacement. 5. History of cardiac arrhythmia, status post pacemaker placement in the past. 6. History of appendectomy. Medications; reviewed. Allergies; none. Social history; patient never smoked. No stable alcohol or drug abuse. Family history; patient is single. 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 Review of systems; denies any headache, visual changes, sinus symptoms. Any chest pain or angina. Shortness of breath has improved since admission. Complains of chronic dyspnea on exertion. Complains of chronic orthopnea. Denies any abdominal pain, nausea vomiting. Any melena or hematochezia. Any urinary symptoms. Denies any weight loss. Denies any weight gain. General exam; elderly male, awake alert, currently in no distress. Looks younger than stated age. Requesting Provider: MERT PEDERSON MD Date/Time of Note DATE: 09/18/18 TIME: 11:05 24 HR Interval Summary Free Text/Dictation Patient's condition is stable. Shortness of breath has markedly improved. General exam; elderly male, awake alert, currently no distress. Exam/Review of Systems Exam Vitals Vital Signs Date Temp Pulse Resp B/P (MAP) Pulse Ox O2 O2 Flow FiO2 Time Delivery Rate 09/18/18 98 3.0 09:45 09/18/18 76 16 Nasal 09:44 Cannula 09/18/18 99.0 121/57 07:43 (78) Intake and Output 09/17/18 09/17/18 09/18/18 1515:00 23:00 07:00 IntakeIntake Total 1390 ml 150 ml OutputOutput Total 1100 ml BalanceBalance 290 ml 150 ml Exam H EENT exam; supple neck, positive JVD. No lymphadenopathy. Midline trachea. No thyromegaly. No neck masses. Chest exam; diminished breath sounds bilaterally. S1-S2 audible, no murmurs. Regular rhythm. Abdomen exam; soft, no organomegaly. Nontender. Bowel sounds audible. Extremity exam; no edema. HUMANE AGENT exam; no focal deficit. Results Result Diagram: 09/17/18 0636 09/18/18 0627 Results 24hrs Laboratory Tests Test 09/17/18 12:19 09/17/18 15:40 09/17/18 17:43 09/17/18 20:23 Bedside Glucose 99 71 110 Urine Color YELLOW Urine Clarity CLEAR Urine pH 5.0 Urine Specific 1.009 [place] Urine Ketones NEGATIVE Urine Nitrite NEGATIVE Urine Bilirubin NEGATIVE Urine Urobilinogen NEGATIVE Urine Leukocyte NEGATIVE Esterase Urine Hemoglobin NEGATIVE Urine Glucose NEGATIVE Urine Total Protein NEGATIVE Test 09/18/18 06:27 09/18/18 09:07 Sodium Level 141 Potassium Level 3.2 L Chloride Level 102 Carbon Dioxide Level 23 Anion Gap 16 H Blood Urea Nitrogen 69 H Creatinine 2.67 H Est Glomerular Filtrat Rate mL/min Glucose Level 64 L Calcium Level 8.8 Bedside Glucose 107 Medications Medication Current Medications IV Flush (NS 3 ml) 3 ml PER PROTOCOL IV ; Start 09/11/18 at 15:00 Ondansetron HCl (Zofran Inj) 4 mg Q6H PRN IV NAUSEA/VOMITING Last administered on 09/18/18 09:25; Admin Dose 4 MG; Start 09/11/18 at 15:00 Acetaminophen (Tylenol Tab) 650 mg Q6H PRN PO .PAIN 1-3 OR TEMP Last administered on 09/16/18 11:44; Admin Dose 650 MG; Start 09/11/18 at 15:00 Acetaminophen/ Hydrocodone Bitart ([place] (5/325)) 1 tab Q6H PRN PO .MOD PAIN 4- 6; Start 09/11/18 at 15:00 Docusate Sodium (Colace) 100 mg Q12H PRN PO .CONSTIPATION; Start 09/11/18 at 15:00 Pantoprazole (Protonix Tab) 40 mg DAILY@06 PO Last administered on 09/18/18 05:43; Admin Dose 40 MG; Start 09/12/18 at 06:00 Allopurinol (Zyloprim) 100 mg DAILY PO Last administered on 09/18/18 09:25; Admin Dose 100 MG; Start 09/12/18 at 09:00 Aspirin (Halfprin) 81 mg DAILY PO Last administered on 09/18/18 09:25; Admin Dose 81 MG; Start 09/12/18 at 09:00 Atorvastatin Calcium (Lipitor) 20 mg QHS PO Last administered on 09/17/18 20:25; Admin Dose 20 MG; Start 09/11/18 at 21:00 Carvedilol (Coreg) 25 mg BID PO Last administered on 09/18/18 09:27; Admin Dose 25 MG; Start 09/11/18 at 21:00 Hydralazine HCl (Apresoline) 50 mg Q8 PO Last administered on 09/18/18 05:44; Admin Dose 50 MG; Start 09/11/18 at 22:00 Isosorbide Mononitrate (Imdur) 60 mg DAILY PO Last administered on 09/18/18 09:27; Admin Dose 60 MG; Start 09/12/18 at 09:00 Latanoprost (Xalatan) 1 drop QHS BOTH EYES Last administered on 09/17/18 20:25; Admin Dose 1 DROP; Start 09/11/18 at 21:00 Levothyroxine Sodium (Synthroid) 75 mcg BEFORE BREAKFAST PO Last administered on 09/18/18 05:44; Admin Dose 75 MCG; Start 09/12/18 at 07:00 Nateglinide (Starlix) 180 mg AC MEALS PO Last administered on 09/17/18 11:50; Admin Dose 180 MG; Start 09/11/18 at 17:25; Status Hold Ticagrelor (Brilinta) 90 mg Q12 PO Last administered on 09/18/18 09:41; Admin Dose 90 MG; Start 09/11/18 at 21:00 Diagnostic Test (Pha) (Accu-Chek) 1 ea AC MEALS AND BEDTIME XX Last administered on 09/18/18 07:25; Admin Dose 1 EA; Start 09/11/18 at 17:25 Ceftriaxone Sodium 50 ml @ 100 mls/hr DAILY IVPB Last administered on 09/18/18 09:24; Admin Dose 100 MLS/HR; Start 09/11/18 at 15:30 Albuterol/ Ipratropium (Duoneb) 3 ml Q4H RESP THERAPY HHN Last administered on 09/18/18 09:41; Admin Dose 3 ML; Start 09/11/18 at 17:00 Guaifenesin/ Dextromethorphan (Robitussin Dm Liquid Cup) 10 ml Q4H PRN PO COUGH Last administered on 09/18/18 09:24; Admin Dose 10 ML; Start 09/14/18 at 10:30 Heparin Sodium (Porcine) (Heparin (5000 Units/1ml)) 5,000 unit BID SC Last administered on 09/18/18 09:41; Admin Dose 5,000 UNIT; Start 09/15/18 at 21:00 Doxycycline Hyclate 100 mg/ Sodium Chloride 250 ml @ 250 mls/hr Q12 IVPB Last administered on 09/18/18 09:00; Admin Dose 250 MLS/HR; Start 09/16/18 at 13:00 Megestrol Acetate (Megace Susp) 400 mg BID PO Last administered on 09/18/18 09:24; Admin Dose 400 MG; Start 09/16/18 at 14:00 Nateglinide (Starlix) 180 mg AC MEALS PO Last administered on 09/17/18 17:39; Admin Dose 180 MG; Start 09/17/18 at 17:30 CARMELO JOYA Sep 18, 2018 11:09
--- NOTE | 2018-09-18 13:12 | CONS ---
Assessment/Plan Assessment/Plan Hospital Course (Demo Recall) IMPRESSION: 1. Congestive heart failure exacerbation, systolic, acute on chronic.-neg trop x 3. Now s/p lexiscan with mainly scar. No sig ischemia by read. EF 29% 2. Cardiomyopathy with decreased left ventricular ejection fraction, last known to be approximately 30% by echo in 04/2018. 25% by echo this admit 3. History of PTCA and stent placement, most recently to right coronary artery and left main in 06/2017. 4. History of transcatheter aortic valve replacement or TAVR in 10/2017.-proper function by echo this admit 5. Hypertension. 6. Dyslipidemia. 7. Chronic kidney disease, not on hemodialysis. 8. Shortness of breath secondary to #1. 9. Fevers 10. nodules-per pulmonology to high risk for Bx?? PLan: -Tele -Continue asa/brilinta -Continue coreg/hydralazine/imdur with well controlled BP -Lasix now held in the setting of acute on chronic renal failure, Follow volume status and creatnine closely -Continue abx's and f/u cx data Consultation Date/Type/Reason Admit Date/Time Sep 12, 2018 at 09:28 Initial Consult Date 09/13/18 Type of Consult Cardiology Reason for Consultation CHF Requesting Provider: MERT BENITEZ MD Date/Time of Note DATE: 09/18/18 TIME: 13:09 Exam/Review of Systems Vital Signs Vitals Vital Signs Date Temp Pulse Resp B/P (MAP) Pulse Ox O2 O2 Flow FiO2 Time Delivery Rate 09/18/18 99.1 72 18 105/53 93 12:03 (70) 09/18/18 3.0 09:45 09/18/18 Nasal 09:44 Cannula Intake and Output 09/17/18 09/17/18 09/18/18 1515:00 23:00 07:00 IntakeIntake Total 1390 ml 150 ml OutputOutput Total 1100 ml BalanceBalance 290 ml 150 ml Exam Exam Review of Systems: CONSTITUTIONAL: No fevers, chills. PULMONARY: No sob CARDIOVASCULAR: No chest pain/palpitations GASTROINTESTINAL: No nausea/vomiting. GENITOURINARY: No hematuria/dysuria. MUSCULOSKELETAL: No myagias/arthalgias. PSYCHIATRIC: The patient denies depression. NEUROLOGIC: No weakness Constitutional: alert Psych: no complaints Head: normocephalic ENMT: mucosa pink and moist Neck: supple, jvd (9 cm water) Respiratory: diminished breath sounds (at bases/B) Cardiovascular: regular rate and rhythm Gastrointestinal: soft, non-tender Musculoskeletal: muscle weakness (mild generalized) Extremities: edema (none) Neurological: other (No focal deficicts) Labs Result Diagram: 09/17/18 0636 09/18/18 0627 Results 24hrs Laboratory Tests Test 09/17/18 15:40 09/17/18 17:43 09/17/18 20:23 09/18/18 06:27 Urine Color YELLOW Urine Clarity CLEAR Urine pH 5.0 Urine Specific 1.009 [place] Urine Ketones NEGATIVE Urine Nitrite NEGATIVE Urine Bilirubin NEGATIVE Urine Urobilinogen NEGATIVE Urine Leukocyte NEGATIVE Esterase Urine Hemoglobin NEGATIVE Urine Glucose NEGATIVE Urine Total Protein NEGATIVE Bedside Glucose 71 110 Sodium Level 141 Potassium Level 3.2 L Chloride Level 102 Carbon Dioxide Level 23 Anion Gap 16 H Blood Urea Nitrogen 69 H Creatinine 2.67 H Est Glomerular Filtrat Rate mL/min Glucose Level 64 L Calcium Level 8.8 Test 09/18/18 09:07 09/18/18 12:06 Bedside Glucose 107 170 Medications Medications Current Medications IV Flush (NS 3 ml) 3 ml PER PROTOCOL IV ; Start 09/11/18 at 15:00 Ondansetron HCl (Zofran Inj) 4 mg Q6H PRN IV NAUSEA/VOMITING Last administered on 09/18/18at 09:25; Admin Dose 4 MG; Start 09/11/18 at 15:00 Acetaminophen (Tylenol Tab) 650 mg Q6H PRN PO .PAIN 1-3 OR TEMP Last administered on 09/16/18at 11:44; Admin Dose 650 MG; Start 09/11/18 at 15:00 Acetaminophen/ Hydrocodone Bitart ([place] (5/325)) 1 tab Q6H PRN PO .MOD PAIN 4- 6; Start 09/11/18 at 15:00 Docusate Sodium (Colace) 100 mg Q12H PRN PO .CONSTIPATION; Start 09/11/18 at 15:00 Pantoprazole (Protonix Tab) 40 mg DAILY@06 PO Last administered on 09/18/18at 05:43; Admin Dose 40 MG; Start 09/12/18 at 06:00 Allopurinol (Zyloprim) 100 mg DAILY PO Last administered on 09/18/18 09:25; Admin Dose 100 MG; Start 09/12/18 at 09:00 Aspirin (Halfprin) 81 mg DAILY PO Last administered on 09/18/18 09:25; Admin Dose 81 MG; Start 09/12/18 at 09:00 Atorvastatin Calcium (Lipitor) 20 mg QHS PO Last administered on 09/17/18 20:25; Admin Dose 20 MG; Start 09/11/18 at 21:00 Carvedilol (Coreg) 25 mg BID PO Last administered on 09/18/18 09:27; Admin Dose 25 MG; Start 09/11/18 at 21:00 Hydralazine HCl (Apresoline) 50 mg Q8 PO Last administered on 09/18/18 05:44; Admin Dose 50 MG; Start 09/11/18 at 22:00 Isosorbide Mononitrate (Imdur) 60 mg DAILY PO Last administered on 09/18/18 09:27; Admin Dose 60 MG; Start 09/12/18 at 09:00 Latanoprost (Xalatan) 1 drop QHS BOTH EYES Last administered on 09/17/18 20:25; Admin Dose 1 DROP; Start 09/11/18 at 21:00 Levothyroxine Sodium (Synthroid) 75 mcg BEFORE BREAKFAST PO Last administered on 09/18/18 05:44; Admin Dose 75 MCG; Start 09/12/18 at 07:00 Ticagrelor (Brilinta) 90 mg Q12 PO Last administered on 09/18/18 09:41; Admin Dose 90 MG; Start 09/11/18 at 21:00 Diagnostic Test (Pha) (Accu-Chek) 1 ea AC MEALS AND BEDTIME XX Last administered on 09/18/18 12:04; Admin Dose 1 EA; Start 09/11/18 at 17:25 Ceftriaxone Sodium 50 ml @ 100 mls/hr DAILY IVPB Last administered on 09/18/18 09:24; Admin Dose 100 MLS/HR; Start 09/11/18 at 15:30 Albuterol/ Ipratropium (Duoneb) 3 ml Q4H RESP THERAPY HHN Last administered on 09/18/18 09:41; Admin Dose 3 ML; Start 09/11/18 at 17:00 Guaifenesin/ Dextromethorphan (Robitussin Dm Liquid Cup) 10 ml Q4H PRN PO COUGH Last administered on 09/18/18 09:24; Admin Dose 10 ML; Start 09/14/18 at 10:30 Heparin Sodium (Porcine) (Heparin (5000 Units/1ml)) 5,000 unit BID SC Last administered on 09/18/18 09:41; Admin Dose 5,000 UNIT; Start 09/15/18 at 21:00 Doxycycline Hyclate 100 mg/ Sodium Chloride 250 ml @ 250 mls/hr Q12 IVPB Last administered on 09/18/18 09:00; Admin Dose 250 MLS/HR; Start 09/16/18 at 13:00 Megestrol Acetate (Megace Susp) 400 mg BID PO Last administered on 09/18/18 09:24; Admin Dose 400 MG; Start 09/16/18 at 14:00 Nateglinide (Starlix) 180 mg AC MEALS PO Last administered on 09/18/18at 12:12; Admin Dose 180 MG; Start 09/17/18 at 17:30 ELEANOR ROLDAN Sep 18, 2018 13:12
--- NOTE | 2018-09-18 13:29 | CONS ---
Assessment/Plan Assessment/Plan Hospital Course (Demo Recall) 83 yo with multiple medical problems admitted with SOB, found to be in CHF also with CRI, we are asked to see for question of pulmonary nodules. At this time I feel it would be helpful to have better imaging with contrast study but given his CRI at this point he cannot have a contrast study he is being actively treated for pneumonia recommend completion of tx with abx for pneumonia and reimage with contrast if possible 4-6 weeks after completion of therapy CEA would not be helpful clinically he has no weight loss and he is a non smoker discussed plan with pt who verbalized understanding Consultation Date/Type/Reason Admit Date/Time Sep 12, 2018 at 09:28 Date/Time of Note DATE: 09/18/18 TIME: 13:28 Hx of Present Illness 83 yo with CHF, CRI, diabetes, hypertension, EF of 30%, history of percutaneous angioplasty, dyslipidemia, hypothyroidism admitted with SOB. He was recently seen by Dr Pederson in her office where diuretics were increased. He is admitted on 09/11 for SOB. He is being seen by cardiology had CT chest w/o contrast showing: Numerous nodular consolidative opacities throughout both lungs. These probably represent a multifocal pneumonia, possibly atypical, however other entities such as septic emboli or metastatic disease cannot be excluded. We are asked to see him for evaluation of these pulm nodules Pt is a non smoker, no second hand smoking history, no weight loss. No toxic ch emical exposures . Constitutional: no complaints, improved Eyes: no complaints Respiratory: cough, shortness of breath, sputum Cardiovascular: no complaints Gastrointestinal: no complaints Genitourinary: no complaints Musculoskeletal: no complaints Skin: no complaints Neurologic: no complaints Endocrine: no complaints Lymphatic: no complaints Psychological: no complaints, nl mood/affect Immunologic: no complaints Past Medical History Home Meds Active Scripts Furosemide* (Furosemide*) 40 Mg Tablet, 40 MG PO DAILY for 30 Days, TAB Prov:MERT PEDERSON MD 08/21/18 Albuterol Sulfate* (Proair HFA*) 8.5 Gm Hfa.aer.ad, 2 PUFF INH Q4H PRN for WHEEZING AND SOB, #1 INHALER Prov:MERT PEDERSON MD 05/19/18 Hydralazine Hcl* (Apresoline*) 50 Mg Tab, 50 MG PO Q8 for 30 Days, TAB Prov:MYRA CABRALES 05/19/18 Atorvastatin Calcium (Atorvastatin Calcium) 20 Mg Tablet, 20 MG PO QHS for 30 Days, TAB Prov:MYRA CABRALES 05/19/18 Reported Medications Latanoprost (Xalatan) 2.5 Ml Drops, 1 DROP BOTH EYES QHS, #1 BOTTLE 05/09/18 Nateglinide* (Nateglinide*) 60 Mg Tablet, 180 MG PO AC MEALS, TAB 05/09/18 Levothyroxine Sodium* (Levothyroxine Sodium*) 75 Mcg Tablet, 75 MCG PO BEFORE BREAKFAST, #30 TAB 10/27/17 Sitagliptin* (Januvia*) 50 Mg Tablet, 50 MG PO DAILY, #30 TAB 07/30/17 Isosorbide Mononitrate* (Isosorbide Mononitrate*) 60 Mg Tab.er.24h, 60 MG PO DAILY, TAB 07/30/17 Carvedilol* (Carvedilol*) 25 Mg Tablet, 25 MG PO BID, #60 TAB 07/30/17 Ticagrelor* (Brilinta*) 90 Mg Tablet, 90 MG PO Q12, TAB 07/30/17 Aspirin (Low Dose Aspirin) 81 Mg Tablet.dr, 81 MG PO DAILY, #30 TAB 07/30/17 Allopurinol* (Allopurinol*) 100 Mg Tablet, 100 MG PO DAILY, TAB 07/30/17 Medications Current Medications IV Flush (NS 3 ml) 3 ml PER PROTOCOL IV ; Start 09/11/18 at 15:00 Ondansetron HCl (Zofran Inj) 4 mg Q6H PRN IV NAUSEA/VOMITING Last administered on 09/18/18at 09:25; Admin Dose 4 MG; Start 09/11/18 at 15:00 Acetaminophen (Tylenol Tab) 650 mg Q6H PRN PO .PAIN 1-3 OR TEMP Last administered on 09/16/18at 11:44; Admin Dose 650 MG; Start 09/11/18 at 15:00 Acetaminophen/ Hydrocodone Bitart ([place] (5/325)) 1 tab Q6H PRN PO .MOD PAIN 4- 6; Start 09/11/18 at 15:00 Docusate Sodium (Colace) 100 mg Q12H PRN PO .CONSTIPATION; Start 09/11/18 at 15:00 Pantoprazole (Protonix Tab) 40 mg DAILY@06 PO Last administered on 09/18/18 05:43; Admin Dose 40 MG; Start 09/12/18 at 06:00 Allopurinol (Zyloprim) 100 mg DAILY PO Last administered on 09/18/18 09:25; Admin Dose 100 MG; Start 09/12/18 at 09:00 Aspirin (Halfprin) 81 mg DAILY PO Last administered on 09/18/18 09:25; Admin Dose 81 MG; Start 09/12/18 at 09:00 Atorvastatin Calcium (Lipitor) 20 mg QHS PO Last administered on 09/17/18 20:25; Admin Dose 20 MG; Start 09/11/18 at 21:00 Carvedilol (Coreg) 25 mg BID PO Last administered on 09/18/18 09:27; Admin Dose 25 MG; Start 09/11/18 at 21:00 Hydralazine HCl (Apresoline) 50 mg Q8 PO Last administered on 09/18/18 05:44; Admin Dose 50 MG; Start 09/11/18 at 22:00 Isosorbide Mononitrate (Imdur) 60 mg DAILY PO Last administered on 09/18/18 09:27; Admin Dose 60 MG; Start 09/12/18 at 09:00 Latanoprost (Xalatan) 1 drop QHS BOTH EYES Last administered on 09/17/18 20:25; Admin Dose 1 DROP; Start 09/11/18 at 21:00 Levothyroxine Sodium (Synthroid) 75 mcg BEFORE BREAKFAST PO Last administered on 09/18/18 05:44; Admin Dose 75 MCG; Start 09/12/18 at 07:00 Ticagrelor (Brilinta) 90 mg Q12 PO Last administered on 09/18/18 09:41; Admin Dose 90 MG; Start 09/11/18 at 21:00 Diagnostic Test (Pha) (Accu-Chek) 1 ea AC MEALS AND BEDTIME XX Last administered on 09/18/18 12:04; Admin Dose 1 EA; Start 09/11/18 at 17:25 Ceftriaxone Sodium 50 ml @ 100 mls/hr DAILY IVPB Last administered on 09/18/18 09:24; Admin Dose 100 MLS/HR; Start 09/11/18 at 15:30 Albuterol/ Ipratropium (Duoneb) 3 ml Q4H RESP THERAPY HHN Last administered on 09/18/18 09:41; Admin Dose 3 ML; Start 09/11/18 at 17:00 Guaifenesin/ Dextromethorphan (Robitussin Dm Liquid Cup) 10 ml Q4H PRN PO COUGH Last administered on 09/18/18 09:24; Admin Dose 10 ML; Start 09/14/18 at 10:30 Heparin Sodium (Porcine) (Heparin (5000 Units/1ml)) 5,000 unit BID SC Last administered on 09/18/18 09:41; Admin Dose 5,000 UNIT; Start 09/15/18 at 21:00 Doxycycline Hyclate 100 mg/ Sodium Chloride 250 ml @ 250 mls/hr Q12 IVPB Last administered on 09/18/18 09:00; Admin Dose 250 MLS/HR; Start 09/16/18 at 13:00 Megestrol Acetate (Megace Susp) 400 mg BID PO Last administered on 09/18/18 09:24; Admin Dose 400 MG; Start 09/16/18 at 14:00 Nateglinide (Starlix) 180 mg AC MEALS PO Last administered on 09/18/18 12:12; Admin Dose 180 MG; Start 09/17/18 at 17:30 Allergies: Coded Allergies: No Known Allergies (Verified Allergy, Unknown, 08/14/18) Past Surgical History Past Surgical Hx: angioplasty Social History Smoking Status: Never smoker Exam/Review of Systems Exam Vitals Vital Signs Date Temp Pulse Resp B/P (MAP) Pulse Ox O2 O2 Flow FiO2 Time Delivery Rate 09/18/18 99.1 72 18 105/53 93 12:03 (70) 09/18/18 3.0 09:45 09/18/18 Nasal 09:44 Cannula Intake and Output 09/17/18 09/17/18 09/18/18 1515:00 23:00 07:00 IntakeIntake Total 1390 ml 150 ml OutputOutput Total 1100 ml BalanceBalance 290 ml 150 ml Constitutional: alert, oriented, well developed Psych: no complaints, nl mood/affect Respiratory: congested cough Musculoskeletal: nl extremities to inspection, nl gait and stance Results Result Diagram: 09/17/18 0636 4/1/19 0627 Results 24hrs Laboratory Tests Test 09/17/18 15:40 09/17/18 17:43 09/17/18 20:23 09/18/18 06:27 Urine Color YELLOW Urine Clarity CLEAR Urine pH 5.0 Urine Specific 1.009 [place] Urine Ketones NEGATIVE Urine Nitrite NEGATIVE Urine Bilirubin NEGATIVE Urine Urobilinogen NEGATIVE Urine Leukocyte NEGATIVE Esterase Urine Hemoglobin NEGATIVE Urine Glucose NEGATIVE Urine Total Protein NEGATIVE Bedside Glucose 71 110 Sodium Level 141 Potassium Level 3.2 L Chloride Level 102 Carbon Dioxide Level 23 Anion Gap 16 H Blood Urea Nitrogen 69 H Creatinine 2.67 H Est Glomerular Filtrat Rate mL/min Glucose Level 64 L Calcium Level 8.8 Test 09/18/18 09:07 09/18/18 12:06 Bedside Glucose 107 170 Medications Medication Current Medications IV Flush (NS 3 ml) 3 ml PER PROTOCOL IV ; Start 09/11/18 at 15:00 Ondansetron HCl (Zofran Inj) 4 mg Q6H PRN IV NAUSEA/VOMITING Last administered on 09/18/18 09:25; Admin Dose 4 MG; Start 09/11/18 at 15:00 Acetaminophen (Tylenol Tab) 650 mg Q6H PRN PO .PAIN 1-3 OR TEMP Last administered on 09/16/18 11:44; Admin Dose 650 MG; Start 09/11/18 at 15:00 Acetaminophen/ Hydrocodone Bitart ([place] (5/325)) 1 tab Q6H PRN PO .MOD PAIN 4- 6; Start 09/11/18 at 15:00 Docusate Sodium (Colace) 100 mg Q12H PRN PO .CONSTIPATION; Start 09/11/18 at 15:00 Pantoprazole (Protonix Tab) 40 mg DAILY@06 PO Last administered on 09/18/18 05:43; Admin Dose 40 MG; Start 09/12/18 at 06:00 Allopurinol (Zyloprim) 100 mg DAILY PO Last administered on 09/18/18 09:25; Admin Dose 100 MG; Start 09/12/18 at 09:00 Aspirin (Halfprin) 81 mg DAILY PO Last administered on 09/18/18 09:25; Admin Dose 81 MG; Start 09/12/18 at 09:00 Atorvastatin Calcium (Lipitor) 20 mg QHS PO Last administered on 09/17/18 20:25; Admin Dose 20 MG; Start 09/11/18 at 21:00 Carvedilol (Coreg) 25 mg BID PO Last administered on 09/18/18 09:27; Admin Dose 25 MG; Start 09/11/18 at 21:00 Hydralazine HCl (Apresoline) 50 mg Q8 PO Last administered on 09/18/18 05:44; Admin Dose 50 MG; Start 09/11/18 at 22:00 Isosorbide Mononitrate (Imdur) 60 mg DAILY PO Last administered on 09/18/18 09:27; Admin Dose 60 MG; Start 09/12/18 at 09:00 Latanoprost (Xalatan) 1 drop QHS BOTH EYES Last administered on 09/17/18 20:25; Admin Dose 1 DROP; Start 09/11/18 at 21:00 Levothyroxine Sodium (Synthroid) 75 mcg BEFORE BREAKFAST PO Last administered on 09/18/18 05:44; Admin Dose 75 MCG; Start 09/12/18 at 07:00 Ticagrelor (Brilinta) 90 mg Q12 PO Last administered on 09/18/18 09:41; Admin Dose 90 MG; Start 09/11/18 at 21:00 Diagnostic Test (Pha) (Accu-Chek) 1 ea AC MEALS AND BEDTIME XX Last administered on 09/18/18 12:04; Admin Dose 1 EA; Start 09/11/18 at 17:25 Ceftriaxone Sodium 50 ml @ 100 mls/hr DAILY IVPB Last administered on 09/18/18 09:24; Admin Dose 100 MLS/HR; Start 09/11/18 at 15:30 Albuterol/ Ipratropium (Duoneb) 3 ml Q4H RESP THERAPY HHN Last administered on 09/18/18 09:41; Admin Dose 3 ML; Start 09/11/18 at 17:00 Guaifenesin/ Dextromethorphan (Robitussin Dm Liquid Cup) 10 ml Q4H PRN PO COUGH Last administered on 09/18/18 09:24; Admin Dose 10 ML; Start 09/14/18 at 10:30 Heparin Sodium (Porcine) (Heparin (5000 Units/1ml)) 5,000 unit BID SC Last administered on 09/18/18 09:41; Admin Dose 5,000 UNIT; Start 09/15/18 at 21:00 Doxycycline Hyclate 100 mg/ Sodium Chloride 250 ml @ 250 mls/hr Q12 IVPB Last administered on 09/18/18at 09:00; Admin Dose 250 MLS/HR; Start 09/16/18 at 13:00 Megestrol Acetate (Megace Susp) 400 mg BID PO Last administered on 09/18/18at 09:24; Admin Dose 400 MG; Start 09/16/18 at 14:00 Nateglinide (Starlix) 180 mg AC MEALS PO Last administered on 09/18/18at 12:12; Admin Dose 180 MG; Start 09/17/18 at 17:30 SHERMAN GOLD Sep 18, 2018 13:29
--- NOTE | 2018-09-18 14:13 | CONS ---
Assessment/Plan Assessment/Plan Hospital Course (Demo Recall) Alert, feels good, no fevers, CXR neg MRSA swab negative Antimicrobials: Doxycycline, Rocephin Physical examination: This is a well-developed obese elderly man who is alert in no distress. Head atraumatic normocephalic sclera nonicteric. Neck is supple. Chest rise symmetrical breath sounds diminished bases. Heart: S1-S2. Abdomen soft bowel sounds present. Extremities without cyanosis Assessment: 1. Acute hypoxemia on admission 2. Possible pneumonia 3. Cardiomyopathy with CHF exacerbation 4. Acute possibly on chronic kidney disease 5. Coronary artery disease with a history of aortic valve replacement 6. Diabetes 7. Hypertension Plan: Stable, chest x-ray noted, will discontinue antibiotics and monitor, card/pulmonary rec-s Consultation Date/Type/Reason Admit Date/Time Sep 12, 2018 at 09:28 Initial Consult Date 09/13/18 Type of Consult id Requesting Provider: MERT BENITEZ MD Date/Time of Note DATE: 09/18/18 TIME: 14:12 Exam/Review of Systems Exam Vitals Vital Signs Date Temp Pulse Resp B/P (MAP) Pulse Ox O2 O2 Flow FiO2 Time Delivery Rate 09/18/18 2 2.0 13:35 09/18/18 72 18 Nasal 13:33 Cannula 09/18/18 99.1 105/53 12:03 (70) Intake and Output 09/17/18 09/17/18 09/18/18 1515:00 23:00 07:00 IntakeIntake Total 1390 ml 150 ml OutputOutput Total 1100 ml BalanceBalance 290 ml 150 ml Results Result Diagram: 09/17/18 0636 09/18/18 0627 Results 24hrs Laboratory Tests Test 09/17/18 15:40 09/17/18 17:43 09/17/18 20:23 09/18/18 06:27 Urine Color YELLOW Urine Clarity CLEAR Urine pH 5.0 Urine Specific 1.009 [place] Urine Ketones NEGATIVE Urine Nitrite NEGATIVE Urine Bilirubin NEGATIVE Urine Urobilinogen NEGATIVE Urine Leukocyte NEGATIVE Esterase Urine Hemoglobin NEGATIVE Urine Glucose NEGATIVE Urine Total Protein NEGATIVE Bedside Glucose 71 110 Sodium Level 141 Potassium Level 3.2 L Chloride Level 102 Carbon Dioxide Level 23 Anion Gap 16 H Blood Urea Nitrogen 69 H Creatinine 2.67 H Est Glomerular Filtrat Rate mL/min Glucose Level 64 L Calcium Level 8.8 Test 09/18/18 09:07 09/18/18 12:06 Bedside Glucose 107 170 Medications Medication Current Medications IV Flush (NS 3 ml) 3 ml PER PROTOCOL IV ; Start 09/11/18 at 15:00 Ondansetron HCl (Zofran Inj) 4 mg Q6H PRN IV NAUSEA/VOMITING Last administered on 09/18/18 09:25; Admin Dose 4 MG; Start 09/11/18 at 15:00 Acetaminophen (Tylenol Tab) 650 mg Q6H PRN PO .PAIN 1-3 OR TEMP Last administered on 09/16/18 11:44; Admin Dose 650 MG; Start 09/11/18 at 15:00 Acetaminophen/ Hydrocodone Bitart ([place] (5/325)) 1 tab Q6H PRN PO .MOD PAIN 4- 6; Start 09/11/18 at 15:00 Docusate Sodium (Colace) 100 mg Q12H PRN PO .CONSTIPATION; Start 09/11/18 at 15:00 Pantoprazole (Protonix Tab) 40 mg DAILY@06 PO Last administered on 09/18/18 05:43; Admin Dose 40 MG; Start 09/12/18 at 06:00 Allopurinol (Zyloprim) 100 mg DAILY PO Last administered on 09/18/18 09:25; Admin Dose 100 MG; Start 09/12/18 at 09:00 Aspirin (Halfprin) 81 mg DAILY PO Last administered on 09/18/18 09:25; Admin Dose 81 MG; Start 09/12/18 at 09:00 Atorvastatin Calcium (Lipitor) 20 mg QHS PO Last administered on 09/17/18 20:25; Admin Dose 20 MG; Start 09/11/18 at 21:00 Carvedilol (Coreg) 25 mg BID PO Last administered on 09/18/18 09:27; Admin Dose 25 MG; Start 09/11/18 at 21:00 Hydralazine HCl (Apresoline) 50 mg Q8 PO Last administered on 09/18/18 05:44; Admin Dose 50 MG; Start 09/11/18 at 22:00 Isosorbide Mononitrate (Imdur) 60 mg DAILY PO Last administered on 09/18/18 09:27; Admin Dose 60 MG; Start 09/12/18 at 09:00 Latanoprost (Xalatan) 1 drop QHS BOTH EYES Last administered on 09/17/18 20:25; Admin Dose 1 DROP; Start 09/11/18 at 21:00 Levothyroxine Sodium (Synthroid) 75 mcg BEFORE BREAKFAST PO Last administered on 09/18/18 05:44; Admin Dose 75 MCG; Start 09/12/18 at 07:00 Ticagrelor (Brilinta) 90 mg Q12 PO Last administered on 09/18/18 09:41; Admin Dose 90 MG; Start 09/11/18 at 21:00 Diagnostic Test (Pha) (Accu-Chek) 1 ea AC MEALS AND BEDTIME XX Last administered on 09/18/18 12:04; Admin Dose 1 EA; Start 09/11/18 at 17:25 Ceftriaxone Sodium 50 ml @ 100 mls/hr DAILY IVPB Last administered on 09/18/18 09:24; Admin Dose 100 MLS/HR; Start 09/11/18 at 15:30 Albuterol/ Ipratropium (Duoneb) 3 ml Q4H RESP THERAPY HHN Last administered on 09/18/18 13:31; Admin Dose 3 ML; Start 09/11/18 at 17:00 Guaifenesin/ Dextromethorphan (Robitussin Dm Liquid Cup) 10 ml Q4H PRN PO COUGH Last administered on 09/18/18 09:24; Admin Dose 10 ML; Start 09/14/18 at 10:30 Heparin Sodium (Porcine) (Heparin (5000 Units/1ml)) 5,000 unit BID SC Last administered on 09/18/18 09:41; Admin Dose 5,000 UNIT; Start 09/15/18 at 21:00 Doxycycline Hyclate 100 mg/ Sodium Chloride 250 ml @ 250 mls/hr Q12 IVPB Last administered on 09/18/18 09:00; Admin Dose 250 MLS/HR; Start 09/16/18 at 13:00 Megestrol Acetate (Megace Susp) 400 mg BID PO Last administered on 09/18/18 09:24; Admin Dose 400 MG; Start 09/16/18 at 14:00 Nateglinide (Starlix) 180 mg AC MEALS PO Last administered on 09/18/18 12:12; Admin Dose 180 MG; Start 09/17/18 at 17:30 DOMONIQUE ANGELO NP Sep 18, 2018 14:13
--- NOTE | 2018-09-18 15:42 | CONS ---
Consultation Date/Type/Reason Admit Date/Time Sep 12, 2018 at 09:28 Initial Consult Date 09/13/18 Requesting Provider: MERT BENITEZ MD Date/Time of Note DATE: 09/18/18 TIME: 15:41 24 HR Interval Summary Free Text/Dictation 83 yo with h/o CHF, Exam/Review of Systems Exam Vitals Vital Signs Date Temp Pulse Resp B/P (MAP) Pulse Ox O2 O2 Flow FiO2 Time Delivery Rate 09/18/18 2 2.0 13:35 09/18/18 72 18 Nasal 13:33 Cannula 09/18/18 99.1 105/53 12:03 (70) Intake and Output 09/17/18 09/17/18 09/18/18 1515:00 23:00 07:00 IntakeIntake Total 1390 ml 150 ml OutputOutput Total 1100 ml BalanceBalance 290 ml 150 ml Results Result Diagram: 09/17/18 0636 09/18/18 0627 Results 24hrs Laboratory Tests Test 09/17/18 17:43 09/17/18 20:23 09/18/18 06:27 09/18/18 09:07 Bedside Glucose 71 110 107 Sodium Level 141 Potassium Level 3.2 L Chloride Level 102 Carbon Dioxide Level 23 Anion Gap 16 H Blood Urea Nitrogen 69 H Creatinine 2.67 H Est Glomerular Filtrat Rate mL/min Glucose Level 64 L Calcium Level 8.8 Test 09/18/18 12:06 Bedside Glucose 170 Medications Medication Current Medications IV Flush (NS 3 ml) 3 ml PER PROTOCOL IV ; Start 09/11/18 at 15:00 Ondansetron HCl (Zofran Inj) 4 mg Q6H PRN IV NAUSEA/VOMITING Last administered on 09/18/18at 09:25; Admin Dose 4 MG; Start 09/11/18 at 15:00 Acetaminophen (Tylenol Tab) 650 mg Q6H PRN PO .PAIN 1-3 OR TEMP Last administered on 09/16/18at 11:44; Admin Dose 650 MG; Start 09/11/18 at 15:00 Acetaminophen/ Hydrocodone Bitart ([place] (5/325)) 1 tab Q6H PRN PO .MOD PAIN 4- 6; Start 09/11/18 at 15:00 Docusate Sodium (Colace) 100 mg Q12H PRN PO .CONSTIPATION; Start 09/11/18 at 15:00 Pantoprazole (Protonix Tab) 40 mg DAILY@06 PO Last administered on 09/18/18 05:43; Admin Dose 40 MG; Start 09/12/18 at 06:00 Allopurinol (Zyloprim) 100 mg DAILY PO Last administered on 09/18/18 09:25; Admin Dose 100 MG; Start 09/12/18 at 09:00 Aspirin (Halfprin) 81 mg DAILY PO Last administered on 09/18/18 09:25; Admin Dose 81 MG; Start 09/12/18 at 09:00 Atorvastatin Calcium (Lipitor) 20 mg QHS PO Last administered on 09/17/18 20:25; Admin Dose 20 MG; Start 09/11/18 at 21:00 Carvedilol (Coreg) 25 mg BID PO Last administered on 09/18/18 09:27; Admin Dose 25 MG; Start 09/11/18 at 21:00 Hydralazine HCl (Apresoline) 50 mg Q8 PO Last administered on 09/18/18 05:44; Admin Dose 50 MG; Start 09/11/18 at 22:00 Isosorbide Mononitrate (Imdur) 60 mg DAILY PO Last administered on 09/18/18 09:27; Admin Dose 60 MG; Start 09/12/18 at 09:00 Latanoprost (Xalatan) 1 drop QHS BOTH EYES Last administered on 09/17/18 20:25; Admin Dose 1 DROP; Start 09/11/18 at 21:00 Levothyroxine Sodium (Synthroid) 75 mcg BEFORE BREAKFAST PO Last administered on 09/18/18 05:44; Admin Dose 75 MCG; Start 09/12/18 at 07:00 Ticagrelor (Brilinta) 90 mg Q12 PO Last administered on 09/18/18 09:41; Admin Dose 90 MG; Start 09/11/18 at 21:00 Diagnostic Test (Pha) (Accu-Chek) 1 ea AC MEALS AND BEDTIME XX Last administered on 09/18/18 12:04; Admin Dose 1 EA; Start 09/11/18 at 17:25 Albuterol/ Ipratropium (Duoneb) 3 ml Q4H RESP THERAPY HHN Last administered on 4/1/19at 13:31; Admin Dose 3 ML; Start 09/11/18 at 17:00 Guaifenesin/ Dextromethorphan (Robitussin Dm Liquid Cup) 10 ml Q4H PRN PO COUGH Last administered on 09/18/18 09:24; Admin Dose 10 ML; Start 09/14/18 at 10:30 Heparin Sodium (Porcine) (Heparin (5000 Units/1ml)) 5,000 unit BID SC Last administered on 09/18/18at 09:41; Admin Dose 5,000 UNIT; Start 09/15/18 at 21:00 Megestrol Acetate (Megace Susp) 400 mg BID PO Last administered on 09/18/18at 09:24; Admin Dose 400 MG; Start 09/16/18 at 14:00 Nateglinide (Starlix) 180 mg AC MEALS PO Last administered on 09/18/18at 12:12; Admin Dose 180 MG; Start 09/17/18 at 17:30 SHERMAN GOLD Sep 18, 2018 15:42
[2018-09-18] MEDS: ATORVASTATIN 20 MG TAB PO SCH (22:02)
[2018-09-18] MEDS: LATANOPROST 0.005% 2.5 ML OPH BOTH EYES SCH (22:05)
[2018-09-19] VITALS (12 sets, daily range): BP systolic 102–127; BP diastolic 50–60; PULSE 64–78; RESP 18–20
[2018-09-19] MEDS: ALBUTEROL/IPRATROPIUM (NEB) 3 ML AMP HHN SCH ×6 (00:40→20:35)
[2018-09-19] MEDS: LEVOTHYROXINE 75 MCG TAB PO SCH (06:31)
[2018-09-19] MEDS: PANTOPRAZOLE (EC) 40 MG TAB PO SCH (06:31)
[2018-09-19] MEDS: ACCU-CHEK XX SCH ×4 (07:25→21:00)
[2018-09-19] MEDS: ISOSORBIDE MONONITRATE(SR)60 MG TAB PO SCH (08:49)
[2018-09-19] MEDS: MEGESTROL (40 MG/ML) 10ML CUP PO SCH ×2 (08:49→20:49)
[2018-09-19] MEDS: TICAGRELOR 90 MG TABLET PO SCH ×2 (08:50→20:56)
[2018-09-19] MEDS: ASPIRIN (EC) 81 MG TAB PO SCH (08:51)
[2018-09-19] MEDS: HEPARIN 5,000 UNIT/1 ML VIAL SC SCH ×2 (08:51→21:19)
[2018-09-19] MEDS: ALLOPURINOL 100 MG TAB PO SCH (08:51)
[2018-09-19] MEDS: NATEGLINIDE 120 MG TAB PO SCH ×2 (08:55→13:58)
--- NOTE | 2018-09-19 09:11 | CONS ---
Assessment/Plan Assessment/Plan Assessment/Plan (Daily) Assessment and recommendations; 1. Patient admitted with shortness of breath due to CHF exacerbation due to history of significant cardiomyopathy. Clinically improved on current treatment regimen. 2. Chronic renal insufficiency. 3. History of transcutaneous aortic valve replacement. 4. Gout. 5. Hypertension. 6. Anemia and thrombocytopenia Continue current supportive care. Consider discharge. Lung nodule seen on CT imaging of the chest, please refer to prior assessment and recommendations regarding that. Consultation Date/Type/Reason Admit Date/Time Sep 12, 2018 at 09:28 Initial Consult Date 09/13/18 Type of Consult Pulmonary pulmonary consult requested for evaluation of hypoxemia. Patient is a very pleasant 83-year-old gentleman who came into the hospital with a few days history of increasing shortness of breath. Patient denies any chest pain, wheezing, cough, sputum production hemoptysis, any fever or chills. Upon evaluation further workup was done including a chest x-ray as well as CT chest and BNP level which are consistent with exacerbation of underlying cardiomyopathy with CHF. Patient feeling somewhat better since admission. Complains of chronic dyspnea on exertion. Past medical history; 1. Cardiomyopathy with EF of around 25%. 2. Chronic renal insufficiency. 3. History of diabetes and hypertension. 4. Status post transcutaneous aortic valve replacement. 5. History of cardiac arrhythmia, status post pacemaker placement in the past. 6. History of appendectomy. Medications; reviewed. Allergies; none. Social history; patient never smoked. No stable alcohol or drug abuse. Family history; patient is single. 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 Review of systems; denies any headache, visual changes, sinus symptoms. Any chest pain or angina. Shortness of breath has improved since admission. Complains of chronic dyspnea on exertion. Complains of chronic orthopnea. Denies any abdominal pain, nausea vomiting. Any melena or hematochezia. Any ur inary symptoms. Denies any weight loss. Denies any weight gain. General exam; elderly male, awake alert, currently in no distress. Looks younger than stated age. Requesting Provider: MERT BENITEZ MD Date/Time of Note DATE: 09/19/18 TIME: 09:08 24 HR Interval Summary Free Text/Dictation Patient's condition is stable. Denies any shortness of breath at rest. Denies any coughing, wheezing, sputum production. General exam; elderly male, awake and alert. Currently in no distress. Exam/Review of Systems Exam Vitals Vital Signs Date Temp Pulse Resp B/P (MAP) Pulse Ox O2 O2 Flow FiO2 Time Delivery Rate 09/19/18 70 08:01 09/19/18 98.1 18 127/60 97 Room Air 07:17 (82) 09/19/18 2.0 03:51 Intake and Output 09/18/18 09/18/18 09/19/18 1515:00 23:00 07:00 IntakeIntake Total 800 ml 420 ml OutputOutput Total 925 ml 700 ml BalanceBalance -125 ml -280 ml Exam H EENT exam; supple neck, positive JVD. No lymphadenopathy. Midline trachea. No thyromegaly. Patient has multiple carious teeth. No neck masses. Chest exam; diminished but clear breath sounds. S1-S2 audible, no murmurs. Abdomen exam; soft, no organomegaly. Nontender. Bowel sounds audible. Extremity exam; no peripheral edema. Patient has a patchy ecchymosis. [employer] SURGEON exam; no focal deficit. Results Result Diagram: 09/19/18 0630 09/19/18 0630 Results 24hrs Laboratory Tests Test 09/18/18 12:06 09/18/18 18:12 09/18/18 18:51 09/18/18 22:18 Bedside Glucose 170 64 L 105 194 Test 09/19/18 06:30 09/19/18 08:05 09/19/18 09:02 White Blood Count 3.7 #L Red Blood Count 3.56 L Hemoglobin 9.2 L Hematocrit 28.8 L Mean Corpuscular 80.9 L Volume Mean Corpuscular 25.8 L Hemoglobin Mean Corpuscular 31.9 L Hemoglobin Concent Red Cell Distribution 16.7 H Width Platelet Count 154 Mean Platelet Volume 10.1 Immature Granulocytes 0.500 H % Neutrophils % 40.8 Lymphocytes % 44.6 Monocytes % 12.7 H Eosinophils % 1.4 Basophils % 0.0 Nucleated Red Blood 0.0 Cells % Immature Granulocytes 0.020 # Neutrophils # 1.5 L Lymphocytes # 1.7 Monocytes # 0.5 Eosinophils # 0.1 Basophils # 0.0 Nucleated Red Blood 0.0 Cells # Sodium Level 143 Potassium Level 4.2 Chloride Level 104 Carbon Dioxide Level 25 Anion Gap 14 H Blood Urea Nitrogen 72 H Creatinine 2.62 H Est Glomerular Filtrat Rate mL/min Glucose Level 103 Calcium Level 9.2 Phosphorus Level 4.3 Magnesium Level 2.3 Bedside Glucose 112 Lab Scanned Report REFERENCE LAB Medications Medication Current Medications IV Flush (NS 3 ml) 3 ml PER PROTOCOL IV ; Start 09/11/18 at 15:00 Ondansetron HCl (Zofran Inj) 4 mg Q6H PRN IV NAUSEA/VOMITING Last administered on 09/18/18 09:25; Admin Dose 4 MG; Start 09/11/18 at 15:00 Acetaminophen (Tylenol Tab) 650 mg Q6H PRN PO .PAIN 1-3 OR TEMP Last administered on 09/16/18 11:44; Admin Dose 650 MG; Start 09/11/18 at 15:00 Acetaminophen/ Hydrocodone Bitart ([place] (5/325)) 1 tab Q6H PRN PO .MOD PAIN 4- 6; Start 09/11/18 at 15:00 Docusate Sodium (Colace) 100 mg Q12H PRN PO .CONSTIPATION; Start 09/11/18 at 15:00 Pantoprazole (Protonix Tab) 40 mg DAILY@06 PO Last administered on 09/19/18 06:31; Admin Dose 40 MG; Start 09/12/18 at 06:00 Allopurinol (Zyloprim) 100 mg DAILY PO Last administered on 09/19/18 08:51; Admin Dose 100 MG; Start 09/12/18 at 09:00 Aspirin (Halfprin) 81 mg DAILY PO Last administered on 09/19/18 08:51; Admin Dose 81 MG; Start 09/12/18 at 09:00 Atorvastatin Calcium (Lipitor) 20 mg QHS PO Last administered on 09/18/18 22:02; Admin Dose 20 MG; Start 09/11/18 at 21:00 Carvedilol (Coreg) 25 mg BID PO Last administered on 09/19/18 08:49; Admin Dose 25 MG; Start 09/11/18 at 21:00 Hydralazine HCl (Apresoline) 50 mg Q8 PO Last administered on 09/19/18 06:31; Admin Dose 50 MG; Start 09/11/18 at 22:00 Isosorbide Mononitrate (Imdur) 60 mg DAILY PO Last administered on 09/19/18 08:49; Admin Dose 60 MG; Start 09/12/18 at 09:00 Latanoprost (Xalatan) 1 drop QHS BOTH EYES Last administered on 09/18/18 22:05; Admin Dose 1 DROP; Start 09/11/18 at 21:00 Levothyroxine Sodium (Synthroid) 75 mcg BEFORE BREAKFAST PO Last administered on 09/19/18 06:31; Admin Dose 75 MCG; Start 09/12/18 at 07:00 Ticagrelor (Brilinta) 90 mg Q12 PO Last administered on 09/19/18 08:50; Admin Dose 90 MG; Start 09/11/18 at 21:00 Diagnostic Test (Pha) (Accu-Chek) 1 ea AC MEALS AND BEDTIME XX Last administered on 09/18/18 18:14; Admin Dose 1 EA; Start 09/11/18 at 17:25 Albuterol/ Ipratropium (Duoneb) 3 ml Q4H RESP THERAPY HHN Last administered on 09/18/18 17:07; Admin Dose 3 ML; Start 09/11/18 at 17:00 Guaifenesin/ Dextromethorphan (Robitussin Dm Liquid Cup) 10 ml Q4H PRN PO COUGH Last administered on 09/18/18 09:24; Admin Dose 10 ML; Start 09/14/18 at 10:30 Heparin Sodium (Porcine) (Heparin (5000 Units/1ml)) 5,000 unit BID SC Last administered on 09/19/18 08:51; Admin Dose 5,000 UNIT; Start 09/15/18 at 21:00 Megestrol Acetate (Megace Susp) 400 mg BID PO Last administered on 09/19/18 08:49; Admin Dose 400 MG; Start 09/16/18 at 14:00 Nateglinide (Starlix) 180 mg AC MEALS PO Last administered on 09/19/18 08:55; Admin Dose 180 MG; Start 09/19/18 at 08:30 CARMELO JOYA Sep 19, 2018 09:11
[2018-09-19] MEDS ORDERED: FUROSEMIDE 40 MG TAB PO ONE (10:00)
--- NOTE | 2018-09-19 10:09 | PN ---
Date/Time of Note Date/Time of Note DATE: 09/19/18 TIME: 10:05 Assessment/Plan VTE Prophylaxis Risk score (from Ns)>0 risk: 6 SCD applied (from Ns): Yes Pharmacological prophylaxis: NA/contraindicated Pharm contraindication: low risk/ambulating Lines/Catheters IV C[facility]from [facility] [place] [facility] Urinary Cath still in place: No Assessment/Plan Hospital Course 83-year-old male who presented with: 1. Shortness of breath likely secondary to congestive heart failure exacerbation, acute on chronic. However, the patient also had low-grade fevers. We cannot rule out underlying pneumonia. CT of the chest shows Numerous nodular consolidative opacities throughout both lungs. These probably represent a multifocal pneumonia, possibly atypical, however other entities such as septic emboli or metastatic disease cannot be excluded. 2. History of acute on chronic congestive heart failure. 3. Chronic kidney disease stage III. now with KEN due to diuresis 4. Elevated BNP due to congestive heart failure. 5. Diabetes. 6. Hypertension. 7. Hyperlipidemia. 8. 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 9. History of transaortic valve replacement. Sivakumar - abx stopped per ID> and was seen by oncology and recommended getting CT of chest in few to 6 weeks -cr Stable restart Lasix -Patient is not a candidate for any kind of biopsy per pulmonary due to her advanced comorbidities as patient will need VATS which is very invasive procedure given her given his age and comorbidities -Echo worsening EF of 25% -CEA, CA 189 and PSA wnl -Agree with aspirin statin Brilinta Coreg -Cardiac stress test reviewed results however patient is not a candidate for any angiogram due to renal failure - V/Q negative for PE - GI/DVT prophylaxsis - fu with pulmonary /cardiac recs/ID -cocci titers neg ambulate without oxygen Result Diagram: 09/19/18 0630 09/19/18 0630 Results 24hrs Laboratory Tests Test 09/18/18 12:06 09/18/18 18:12 09/18/18 18:51 09/18/18 22:18 Bedside Glucose 170 64 L 105 194 Test 09/19/18 06:30 09/19/18 08:05 09/19/18 09:02 White Blood Count 3.7 #L Red Blood Count 3.56 L Hemoglobin 9.2 L Hematocrit 28.8 L Mean Corpuscular 80.9 L Volume Mean Corpuscular 25.8 L Hemoglobin Mean Corpuscular 31.9 L Hemoglobin Concent Red Cell Distribution 16.7 H Width Platelet Count 154 Mean Platelet Volume 10.1 Immature Granulocytes 0.500 H % Neutrophils % 40.8 Lymphocytes % 44.6 Monocytes % 12.7 H Eosinophils % 1.4 Basophils % 0.0 Nucleated Red Blood 0.0 Cells % Immature Granulocytes 0.020 # Neutrophils # 1.5 L Lymphocytes # 1.7 Monocytes # 0.5 Eosinophils # 0.1 Basophils # 0.0 Nucleated Red Blood 0.0 Cells # Sodium Level 143 Potassium Level 4.2 Chloride Level 104 Carbon Dioxide Level 25 Anion Gap 14 H Blood Urea Nitrogen 72 H Creatinine 2.62 H Est Glomerular Filtrat Rate mL/min Glucose Level 103 Calcium Level 9.2 Phosphorus Level 4.3 Magnesium Level 2.3 Bedside Glucose 112 Lab Scanned Report REFERENCE LAB Subjective 24 Hr Interval Summary Free Text/Dictation Feels okay. Cough medicine is helping Exam/Review of Systems Exam Vitals Vital Signs Date Temp Pulse Resp B/P (MAP) Pulse Ox O2 O2 Flow FiO2 Time Delivery Rate 09/19/18 70 08:01 09/19/18 98.1 18 127/60 97 Room Air 07:17 (82) 09/19/18 2.0 03:51 Intake and Output 09/18/18 09/18/18 09/19/18 1515:00 23:00 07:00 IntakeIntake Total 800 ml 420 ml OutputOutput Total 925 ml 700 ml BalanceBalance -125 ml -280 ml Exam Exam GENERAL: The patient is awake, alert, oriented, does not appear to in any acute distress. HEENT: Pupils are equal, round, react to light. NECK: Supple. No JVD. HEART: Regular rate and rhythm. LUNGS: few rhonchi ABDOMEN: Soft, nontender, nondistended, positive normoactive bowel sounds. The patient is obese. EXTREMITIES: Trace edema. Results Results 24hrs Laboratory Tests Test 09/18/18 12:06 09/18/18 18:12 09/18/18 18:51 09/18/18 22:18 Bedside Glucose 170 64 L 105 194 Test 09/19/18 06:30 09/19/18 08:05 09/19/18 09:02 White Blood Count 3.7 #L Red Blood Count 3.56 L Hemoglobin 9.2 L Hematocrit 28.8 L Mean Corpuscular 80.9 L Volume Mean Corpuscular 25.8 L Hemoglobin Mean Corpuscular 31.9 L Hemoglobin Concent Red Cell Distribution 16.7 H Width Platelet Count 154 Mean Platelet Volume 10.1 Immature Granulocytes 0.500 H % Neutrophils % 40.8 Lymphocytes % 44.6 Monocytes % 12.7 H Eosinophils % 1.4 Basophils % 0.0 Nucleated Red Blood 0.0 Cells % Immature Granulocytes 0.020 # Neutrophils # 1.5 L Lymphocytes # 1.7 Monocytes # 0.5 Eosinophils # 0.1 Basophils # 0.0 Nucleated Red Blood 0.0 Cells # Sodium Level 143 Potassium Level 4.2 Chloride Level 104 Carbon Dioxide Level 25 Anion Gap 14 H Blood Urea Nitrogen 72 H Creatinine 2.62 H Est Glomerular Filtrat Rate mL/min Glucose Level 103 Calcium Level 9.2 Phosphorus Level 4.3 Magnesium Level 2.3 Bedside Glucose 112 Lab Scanned Report REFERENCE LAB Medications Medication Current Medications IV Flush (NS 3 ml) 3 ml PER PROTOCOL IV ; Start 09/11/18 at 15:00 Ondansetron HCl (Zofran Inj) 4 mg Q6H PRN IV NAUSEA/VOMITING Last administered on 09/18/18at 09:25; Admin Dose 4 MG; Start 09/11/18 at 15:00 Acetaminophen (Tylenol Tab) 650 mg Q6H PRN PO .PAIN 1-3 OR TEMP Last administered on 09/16/18at 11:44; Admin Dose 650 MG; Start 09/11/18 at 15:00 Acetaminophen/ Hydrocodone Bitart ([place] (5/325)) 1 tab Q6H PRN PO .MOD PAIN 4- 6; Start 09/11/18 at 15:00 Docusate Sodium (Colace) 100 mg Q12H PRN PO .CONSTIPATION; Start 09/11/18 at 15:00 Pantoprazole (Protonix Tab) 40 mg DAILY@06 PO Last administered on 09/19/18at 06:31; Admin Dose 40 MG; Start 09/12/18 at 06:00 Allopurinol (Zyloprim) 100 mg DAILY PO Last administered on 09/19/18at 08:51; Admin Dose 100 MG; Start 09/12/18 at 09:00 Aspirin (Halfprin) 81 mg DAILY PO Last administered on 09/19/18 08:51; Admin Dose 81 MG; Start 09/12/18 at 09:00 Atorvastatin Calcium (Lipitor) 20 mg QHS PO Last administered on 09/18/18 22:02; Admin Dose 20 MG; Start 09/11/18 at 21:00 Carvedilol (Coreg) 25 mg BID PO Last administered on 09/19/18 08:49; Admin Dose 25 MG; Start 09/11/18 at 21:00 Hydralazine HCl (Apresoline) 50 mg Q8 PO Last administered on 09/19/18 06:31; Admin Dose 50 MG; Start 09/11/18 at 22:00 Isosorbide Mononitrate (Imdur) 60 mg DAILY PO Last administered on 09/19/18 08:49; Admin Dose 60 MG; Start 09/12/18 at 09:00 Latanoprost (Xalatan) 1 drop QHS BOTH EYES Last administered on 09/18/18 22:05; Admin Dose 1 DROP; Start 09/11/18 at 21:00 Levothyroxine Sodium (Synthroid) 75 mcg BEFORE BREAKFAST PO Last administered on 09/19/18 06:31; Admin Dose 75 MCG; Start 09/12/18 at 07:00 Ticagrelor (Brilinta) 90 mg Q12 PO Last administered on 09/19/18 08:50; Admin Dose 90 MG; Start 09/11/18 at 21:00 Diagnostic Test (Pha) (Accu-Chek) 1 ea AC MEALS AND BEDTIME XX Last administ ered on 09/18/18 18:14; Admin Dose 1 EA; Start 09/11/18 at 17:25 Albuterol/ Ipratropium (Duoneb) 3 ml Q4H RESP THERAPY HHN Last administered on 09/18/18 17:07; Admin Dose 3 ML; Start 09/11/18 at 17:00 Guaifenesin/ Dextromethorphan (Robitussin Dm Liquid Cup) 10 ml Q4H PRN PO COUGH Last administered on 09/18/18 09:24; Admin Dose 10 ML; Start 09/14/18 at 10:30 Heparin Sodium (Porcine) (Heparin (5000 Units/1ml)) 5,000 unit BID SC Last administered on 09/19/18at 08:51; Admin Dose 5,000 UNIT; Start 09/15/18 at 21:00 Megestrol Acetate (Megace Susp) 400 mg BID PO Last administered on 09/19/18at 08:49; Admin Dose 400 MG; Start 09/16/18 at 14:00 Nateglinide (Starlix) 180 mg AC MEALS PO Last administered on 09/19/18at 08:55; Admin Dose 180 MG; Start 09/19/18 at 08:30 Furosemide (Lasix) 40 mg ONCE ONCE PO ; Start 09/19/18 at 10:00; Stop 09/19/18 at 10:01; Status UNV MERT BENITEZ MD Sep 19, 2018 10:09
--- NOTE | 2018-09-19 10:18 | CONS ---
Consult Date/Type/Reason Admit Date/Time Sep 12, 2018 at 09:28 Initial Consult Date Requesting Provider: MERT BENITEZ MD Date/Time of Note DATE: 09/19/18 TIME: 10:16 Subjective NO acute events - pt feels better now - discussed case with renal team -will spot lasix - Cr high. ROS: No fever, no chills, no nausea, no vomiting, no diarrhea/constipation No recent weight changes No chest pain, no PND, no orthopnea - improved SOB, No dizziness, blurred vision No thirst, no heat or cold intolerance Objective Vitals Vital Signs Date Temp Pulse Resp B/P (MAP) Pulse Ox O2 O2 Flow FiO2 Time Delivery Rate 09/19/18 70 08:01 09/19/18 98.1 18 127/60 97 Room Air 07:17 (82) 09/19/18 2.0 03:51 Intake and Output 09/18/18 09/18/18 09/19/18 1515:00 23:00 07:00 IntakeIntake Total 800 ml 420 ml OutputOutput Total 925 ml 700 ml BalanceBalance -125 ml -280 ml Exam General: WN/WD/NAD, AOx 3 HEENT: Unicetric/atraumatic/EOMI (follow commands) NECK: JVD elevated, no thyromegaly - better Lymph: no lymphadenopathy HEART: regular with no S3, II/ systolic murmur at apex, PMI L LUNGS: Coarse sounds ABD: soft, NT, ND, +BS : Intact Neuro: non focal SKIN: chronic changes EXT: trace edema, improved Results/Medications Result Diagram: 09/19/1830 09/19/18 0630 Results 24 hrs Laboratory Tests Test 09/18/18 12:06 09/18/18 18:12 09/18/18 18:51 09/18/18 22:18 Bedside Glucose 170 64 L 105 194 Test 09/19/18 06:30 09/19/18 08:05 09/19/18 09:02 White Blood Count 3.7 #L Red Blood Count 3.56 L Hemoglobin 9.2 L Hematocrit 28.8 L Mean Corpuscular 80.9 L Volume Mean Corpuscular 25.8 L Hemoglobin Mean Corpuscular 31.9 L Hemoglobin Concent Red Cell Distribution 16.7 H Width Platelet Count 154 Mean Platelet Volume 10.1 Immature Granulocytes 0.500 H % Neutrophils % 40.8 Lymphocytes % 44.6 Monocytes % 12.7 H Eosinophils % 1.4 Basophils % 0.0 Nucleated Red Blood 0.0 Cells % Immature Granulocytes 0.020 # Neutrophils # 1.5 L Lymphocytes # 1.7 Monocytes # 0.5 Eosinophils # 0.1 Basophils # 0.0 Nucleated Red Blood 0.0 Cells # Sodium Level 143 Potassium Level 4.2 Chloride Level 104 Carbon Dioxide Level 25 Anion Gap 14 H Blood Urea Nitrogen 72 H Creatinine 2.62 H Est Glomerular Filtrat Rate mL/min Glucose Level 103 Calcium Level 9.2 Phosphorus Level 4.3 Magnesium Level 2.3 Bedside Glucose 112 Lab Scanned Report REFERENCE LAB Home Meds Active Scripts Furosemide* (Furosemide*) 40 Mg Tablet, 40 MG PO DAILY for 30 Days, TAB Prov:MERT BENITEZ MD 08/21/18 Albuterol Sulfate* (Proair HFA*) 8.5 Gm Hfa.aer.ad, 2 PUFF INH Q4H PRN for WHEEZING AND SOB, #1 INHALER Prov:MERT BENITEZ MD 05/19/18 Hydralazine Hcl* (Apresoline*) 50 Mg Tab, 50 MG PO Q8 for 30 Days, TAB Prov:MYRA CABRALES 05/19/18 Atorvastatin Calcium (Atorvastatin Calcium) 20 Mg Tablet, 20 MG PO QHS for 30 Days, TAB Prov:MYRA CABRALES 05/19/18 Reported Medications Latanoprost (Xalatan) 2.5 Ml Drops, 1 DROP BOTH EYES QHS, #1 BOTTLE 05/09/18 Nateglinide* (Nateglinide*) 60 Mg Tablet, 180 MG PO AC MEALS, TAB 05/09/18 Levothyroxine Sodium* (Levothyroxine Sodium*) 75 Mcg Tablet, 75 MCG PO BEFORE BREAKFAST, #30 TAB 10/27/17 Sitagliptin* (Januvia*) 50 Mg Tablet, 50 MG PO DAILY, #30 TAB 07/30/17 Isosorbide Mononitrate* (Isosorbide Mononitrate*) 60 Mg Tab.er.24h, 60 MG PO DAILY, TAB 07/30/17 Carvedilol* (Carvedilol*) 25 Mg Tablet, 25 MG PO BID, #60 TAB 07/30/17 Ticagrelor* (Brilinta*) 90 Mg Tablet, 90 MG PO Q12, TAB 07/30/17 Aspirin (Low Dose Aspirin) 81 Mg Tablet.dr, 81 MG PO DAILY, #30 TAB 07/30/17 Allopurinol* (Allopurinol*) 100 Mg Tablet, 100 MG PO DAILY, TAB 07/30/17 Medications Current Medications IV Flush (NS 3 ml) 3 ml PER PROTOCOL IV ; Start 09/11/18 at 15:00 Ondansetron HCl (Zofran Inj) 4 mg Q6H PRN IV NAUSEA/VOMITING Last administered on 09/18/18 09:25; Admin Dose 4 MG; Start 09/11/18 at 15:00 Acetaminophen (Tylenol Tab) 650 mg Q6H PRN PO .PAIN 1-3 OR TEMP Last administered on 09/16/18 11:44; Admin Dose 650 MG; Start 09/11/18 at 15:00 Acetaminophen/ Hydrocodone Bitart ([place] (5/325)) 1 tab Q6H PRN PO .MOD PAIN 4- 6; Start 09/11/18 at 15:00 Docusate Sodium (Colace) 100 mg Q12H PRN PO .CONSTIPATION; Start 09/11/18 at 15:00 Pantoprazole (Protonix Tab) 40 mg DAILY@06 PO Last administered on 09/19/18 06:31; Admin Dose 40 MG; Start 09/12/18 at 06:00 Allopurinol (Zyloprim) 100 mg DAILY PO Last administered on 09/19/18 08:51; Admin Dose 100 MG; Start 09/12/18 at 09:00 Aspirin (Halfprin) 81 mg DAILY PO Last administered on 09/19/18 08:51; Admin Dose 81 MG; Start 09/12/18 at 09:00 Atorvastatin Calcium (Lipitor) 20 mg QHS PO Last administered on 09/18/18 22:02; Admin Dose 20 MG; Start 09/11/18 at 21:00 Carvedilol (Coreg) 25 mg BID PO Last administered on 09/19/18 08:49; Admin Dose 25 MG; Start 09/11/18 at 21:00 Hydralazine HCl (Apresoline) 50 mg Q8 PO Last administered on 09/19/18 06:31; Admin Dose 50 MG; Start 09/11/18 at 22:00 Isosorbide Mononitrate (Imdur) 60 mg DAILY PO Last administered on 09/19/18 08:49; Admin Dose 60 MG; Start 09/12/18 at 09:00 Latanoprost (Xalatan) 1 drop QHS BOTH EYES Last administered on 09/18/18 22:05; Admin Dose 1 DROP; Start 09/11/18 at 21:00 Levothyroxine Sodium (Synthroid) 75 mcg BEFORE BREAKFAST PO Last administered on 09/19/18 06:31; Admin Dose 75 MCG; Start 09/12/18 at 07:00 Ticagrelor (Brilinta) 90 mg Q12 PO Last administered on 09/19/18 08:50; Admin Dose 90 MG; Start 09/11/18 at 21:00 Diagnostic Test (Pha) (Accu-Chek) 1 ea AC MEALS AND BEDTIME XX Last administered on 09/18/18 18:14; Admin Dose 1 EA; Start 09/11/18 at 17:25 Albuterol/ Ipratropium (Duoneb) 3 ml Q4H RESP THERAPY HHN Last administered on 09/19/18 10:12; Admin Dose 3 ML; Start 09/11/18 at 17:00 Guaifenesin/ Dextromethorphan (Robitussin Dm Liquid Cup) 10 ml Q4H PRN PO COUGH Last administered on 09/18/18 09:24; Admin Dose 10 ML; Start 09/14/18 at 10:30 Heparin Sodium (Porcine) (Heparin (5000 Units/1ml)) 5,000 unit BID SC Last administered on 09/19/18 08:51; Admin Dose 5,000 UNIT; Start 09/15/18 at 21:00 Megestrol Acetate (Megace Susp) 400 mg BID PO Last administered on 09/19/18 08:49; Admin Dose 400 MG; Start 09/16/18 at 14:00 Nateglinide (Starlix) 180 mg AC MEALS PO Last administered on 09/19/18 08:55; Admin Dose 180 MG; Start 09/19/18 at 08:30 Assessment/Plan Hospital Course (Demo Recall) 1. Congestive heart failure exacerbation, systolic, acute on chronic - con't gentle diuresis. Better now. Euvolemic now. Spot diuresis as CR allows. 2. Cardiomyopathy with decreased left ventricular ejection fraction, last known to be approximately 30% by echo in 04/2018. Con't gentle diuresis. CR 2.49 to 3.0, down to 2.6 now - renal team follows - BETTER 3. History of PTCA and stent placement, most recently to right coronary artery and left main in 06/2017. NO CP now - r/o NC. Do not advise LHC now with Cr up. 4. History of transcatheter aortic valve replacement or TAVR in 10/2017 - with good fxn by exam. NO intervention needed. 5. Hypertension - reasonably controlled. Better now. 6. Dyslipidemia. 7. Chronic kidney disease, not on hemodialysis - Cr 3.04 - renal follows. 8. Shortness of breath secondary to #1- better now 9.CAD - Stres test with mixed defect - no LHC with Cr up. DONNA MORALES MD Sep 19, 2018 10:18
[2018-09-19] MEDS ORDERED: NATEGLINIDE 120 MG TAB PO SCH (11:20)
[2018-09-19] MEDS ORDERED: GLUCAGON 1 MG INJ IM PRN (13:30)
[2018-09-19] MEDS ORDERED: DEXTROSE 50% 50 ML SYRINGE IV PRN ×2 (13:30)
[2018-09-19] MEDS ORDERED: GLUCOSE GEL 15 GRAM TUBE PO PRN ×2 (13:30)
[2018-09-19] MEDS ORDERED: GLUCOSE GEL 15 GRAM TUBE BUCCAL PRN (13:30)
[2018-09-19] MEDS: INSULIN ASPART [NOVOLOG] 3 ML PEN SC SCH ×3 (14:03→21:00)
--- NOTE | 2018-09-19 14:59 | CONS ---
Assessment/Plan Assessment/Plan Hospital Course (Demo Recall) Alert, feels good MRSA swab negative Physical examination: This is a well-developed obese elderly man who is alert in no distress. Head atraumatic normocephalic sclera nonicteric. Neck is supple. Chest rise symmetrical breath sounds diminished bases. Heart: S1-S2. Abdomen soft bowel sounds present. Extremities without cyanosis Assessment: 1. Acute hypoxemia on admission 2. Possible pneumonia 3. Cardiomyopathy with CHF exacerbation 4. Acute possibly on chronic kidney disease 5. Coronary artery disease with a history of aortic valve replacement 6. Diabetes 7. Hypertension Plan: Stable, observe off antibiotics, f/u card/pulmonary rec-s Consultation Date/Type/Reason Admit Date/Time Sep 12, 2018 at 09:28 Initial Consult Date 09/13/18 Type of Consult id Requesting Provider: MERT BENITEZ MD Date/Time of Note DATE: 09/19/18 TIME: 14:58 Exam/Review of Systems Exam Vitals Vital Signs Date Temp Pulse Resp B/P (MAP) Pulse Ox O2 O2 Flow FiO2 Time Delivery Rate 09/19/18 75 18 95 21 12:58 09/19/18 98.7 121/55 Room Air 11:43 (77) 09/19/18 2.0 03:51 Intake and Output 09/18/18 09/18/18 09/19/18 1515:00 23:00 07:00 IntakeIntake Total 800 ml 420 ml OutputOutput Total 925 ml 700 ml BalanceBalance -125 ml -280 ml Results Result Diagram: 09/19/18 0630 09/19/18 0630 Results 24hrs Laboratory Tests Test 09/18/18 18:12 09/18/18 18:51 09/18/18 22:18 09/19/18 06:30 Bedside Glucose 64 L 105 194 White Blood Count 3.7 #L Red Blood Count 3.56 L Hemoglobin 9.2 L Hematocrit 28.8 L Mean Corpuscular 80.9 L Volume Mean Corpuscular 25.8 L Hemoglobin Mean Corpuscular 31.9 L Hemoglobin Concent Red Cell Distribution 16.7 H Width Platelet Count 154 Mean Platelet Volume 10.1 Immature Granulocytes 0.500 H % Neutrophils % 40.8 Lymphocytes % 44.6 Monocytes % 12.7 H Eosinophils % 1.4 Basophils % 0.0 Nucleated Red Blood 0.0 Cells % Immature Granulocytes 0.020 # Neutrophils # 1.5 L Lymphocytes # 1.7 Monocytes # 0.5 Eosinophils # 0.1 Basophils # 0.0 Nucleated Red Blood 0.0 Cells # Sodium Level 143 Potassium Level 4.2 Chloride Level 104 Carbon Dioxide Level 25 Anion Gap 14 H Blood Urea Nitrogen 72 H Creatinine 2.62 H Est Glomerular Filtrat Rate mL/min Glucose Level 103 Calcium Level 9.2 Phosphorus Level 4.3 Magnesium Level 2.3 Test 09/19/18 08:05 09/19/18 09:02 09/19/18 12:16 Bedside Glucose 112 220 Lab Scanned Report REFERENCE LAB Medications Medication Current Medications IV Flush (NS 3 ml) 3 ml PER PROTOCOL IV ; Start 09/11/18 at 15:00 Ondansetron HCl (Zofran Inj) 4 mg Q6H PRN IV NAUSEA/VOMITING Last administered on 09/18/18 09:25; Admin Dose 4 MG; Start 09/11/18 at 15:00 Acetaminophen (Tylenol Tab) 650 mg Q6H PRN PO .PAIN 1-3 OR TEMP Last administered on 09/16/18at 11:44; Admin Dose 650 MG; Start 09/11/18 at 15:00 Acetaminophen/ Hydrocodone Bitart ([place] (5/325)) 1 tab Q6H PRN PO .MOD PAIN 4- 6; Start 09/11/18 at 15:00 Docusate Sodium (Colace) 100 mg Q12H PRN PO .CONSTIPATION; Start 09/11/18 at 15:00 Pantoprazole (Protonix Tab) 40 mg DAILY@06 PO Last administered on 09/19/18at 06:31; Admin Dose 40 MG; Start 09/12/18 at 06:00 Allopurinol (Zyloprim) 100 mg DAILY PO Last administered on 09/19/18 08:51; Admin Dose 100 MG; Start 09/12/18 at 09:00 Aspirin (Halfprin) 81 mg DAILY PO Last administered on 09/19/18 08:51; Admin Dose 81 MG; Start 09/12/18 at 09:00 Atorvastatin Calcium (Lipitor) 20 mg QHS PO Last administered on 09/18/18at 22:02; Admin Dose 20 MG; Start 09/11/18 at 21:00 Carvedilol (Coreg) 25 mg BID PO Last administered on 09/19/18 08:49; Admin Dose 25 MG; Start 09/11/18 at 21:00 Hydralazine HCl (Apresoline) 50 mg Q8 PO Last administered on 09/19/18 13:55; Admin Dose 50 MG; Start 09/11/18 at 22:00 Isosorbide Mononitrate (Imdur) 60 mg DAILY PO Last administered on 09/19/18 08:49; Admin Dose 60 MG; Start 09/12/18 at 09:00 Latanoprost (Xalatan) 1 drop QHS BOTH EYES Last administered on 09/18/18 22:05; Admin Dose 1 DROP; Start 09/11/18 at 21:00 Levothyroxine Sodium (Synthroid) 75 mcg BEFORE BREAKFAST PO Last administered on 09/19/18 06:31; Admin Dose 75 MCG; Start 09/12/18 at 07:00 Ticagrelor (Brilinta) 90 mg Q12 PO Last administered on 09/19/18 08:50; Admin Dose 90 MG; Start 09/11/18 at 21:00 Diagnostic Test (Pha) (Accu-Chek) 1 ea AC MEALS AND BEDTIME XX Last administered on 09/19/18 13:58; Admin Dose 1 EA; Start 09/11/18 at 17:25 Albuterol/ Ipratropium (Duoneb) 3 ml Q4H RESP THERAPY HHN Last administered on 09/19/18 12:58; Admin Dose 3 ML; Start 09/11/18 at 17:00 Guaifenesin/ Dextromethorphan (Robitussin Dm Liquid Cup) 10 ml Q4H PRN PO COUGH Last administered on 09/18/18 09:24; Admin Dose 10 ML; Start 09/14/18 at 10:30 Heparin Sodium (Porcine) (Heparin (5000 Units/1ml)) 5,000 unit BID SC Last administered on 09/19/18 08:51; Admin Dose 5,000 UNIT; Start 09/15/18 at 21:00 Megestrol Acetate (Megace Susp) 400 mg BID PO Last administered on 09/19/18 08:49; Admin Dose 400 MG; Start 09/16/18 at 14:00 Nateglinide (Starlix) 180 mg AC MEALS PO Last administered on 09/19/18at 13:58; Admin Dose 180 MG; Start 09/19/18 at 08:30 Diagnostic Test (Pha) (Accu-Chek) 1 ea 02 XX ; Start 09/20/18 at 02:00 Insulin Aspart (Novolog Insulin Pen) NOVOLOG *MILD* ALGORITHM WITH MEALS BEDTIME SC Last administered on 09/19/18at 14:03; Admin Dose 2 UNIT; Start 09/19/18 at 13:30 Miscellaneous Information 1 ea NOTE XX ; Start 09/19/18 at 13:30 Glucose (Glutose) 15 gm Q15M PRN PO DECREASED GLUCOSE; Start 09/19/18 at 13:30 Glucose (Glutose) 22.5 gm Q15M PRN PO DECREASED GLUCOSE; Start 09/19/18 at 13:30 Dextrose (D50w Syringe) 25 ml Q15M PRN IV DECREASED GLUCOSE; Start 09/19/18 at 13:30 Dextrose (D50w Syringe) 50 ml Q15M PRN IV DECREASED GLUCOSE; Start 09/19/18 at 13:30 Glucagon (Glucagen) 1 mg Q15M PRN IM DECREASED GLUCOSE; Start 09/19/18 at 13:30 Glucose (Glutose) 15 gm Q15M PRN BUCCAL DECREASED GLUCOSE; Start 09/19/18 at 13:30 DOMONIQUE ANGELO NP Sep 19, 2018 14:59
[2018-09-19] MEDS: GUAIFENESIN/DM 5ML CUP PO PRN (20:48)
[2018-09-19] MEDS: ATORVASTATIN 20 MG TAB PO SCH (20:49)
[2018-09-19] MEDS: LATANOPROST 0.005% 2.5 ML OPH BOTH EYES SCH (21:00)
[2018-09-20] VITALS (12 sets, daily range): BP systolic 100–125; BP diastolic 52–65; PULSE 62–78; RESP 16–20
[2018-09-20] MEDS: ALBUTEROL/IPRATROPIUM (NEB) 3 ML AMP HHN SCH ×6 (01:00→20:00)
[2018-09-20] MEDS: ACCU-CHEK XX SCH ×5 (02:00→21:00)
[2018-09-20] MEDS: LEVOTHYROXINE 75 MCG TAB PO SCH (06:58)
[2018-09-20] MEDS: PANTOPRAZOLE (EC) 40 MG TAB PO SCH (06:58)
[2018-09-20] MEDS: INSULIN ASPART [NOVOLOG] 3 ML PEN SC SCH ×4 (07:49→21:34)
[2018-09-20] MEDS: ISOSORBIDE MONONITRATE(SR)60 MG TAB PO SCH (08:14)
[2018-09-20] MEDS: MEGESTROL (40 MG/ML) 10ML CUP PO SCH ×2 (08:14→21:24)
[2018-09-20] MEDS: ASPIRIN (EC) 81 MG TAB PO SCH (08:15)
[2018-09-20] MEDS: ALLOPURINOL 100 MG TAB PO SCH (08:15)
[2018-09-20] MEDS: TICAGRELOR 90 MG TABLET PO SCH ×2 (08:20→21:34)
[2018-09-20] MEDS: HEPARIN 5,000 UNIT/1 ML VIAL SC SCH ×2 (08:20→21:34)
[2018-09-20] MEDS ORDERED: ALBUTEROL/IPRATROPIUM (NEB) 3 ML AMP HHN STA (08:33)
--- NOTE | 2018-09-20 08:36 | PN ---
Date/Time of Note Date/Time of Note DATE: 09/20/18 TIME: 08:34 Assessment/Plan VTE Prophylaxis Risk score (from Ns)>0 risk: 5 SCD applied (from Ns): Yes Pharmacological prophylaxis: NA/contraindicated Pharm contraindication: low risk/ambulating Lines/Catheters IV [facility] [place] [facility] Urinary Cath still in place: No Assessment/Plan Hospital Course 83-year-old male who presented with: 1. Shortness of breath likely secondary to congestive heart failure exacerbation, acute on chronic. However, the patient also had low-grade fevers. We cannot rule out underlying pneumonia. CT of the chest shows Numerous nodular consolidative opacities throughout both lungs. These probably represent a multifocal pneumonia, possibly atypical, however other entities such as septic emboli or metastatic disease cannot be excluded. 2. History of acute on chronic congestive heart failure. 3. Chronic kidney disease stage III. now with KEN due to diuresis, Cr was stable yesterday 4. Elevated BNP due to congestive heart failure. 5. Diabetes.on orals 6. Hypertension. 7. Hyperlipidemia. 8. Cardiomyopathy with reduced EF of 30% to 35%.now 25% 9. History of transaortic valve replacement. Sivakumar - abx stopped per ID> and was seen by oncology and recommended getting CT of chest in few to 6 weeks -pending labs restart Lasix, duobneb now -Patient is not a candidate for any kind of biopsy per pulmonary due to her advanced comorbidities as patient will need VATS which is very invasive procedure given her given his age and comorbidities -Echo worsening EF of 25% -CEA, CA 189 and PSA wnl -Agree with aspirin statin Brilinta Coreg -Cardiac stress test reviewed results however patient is not a candidate for any angiogram due to renal failure - V/Q negative for PE - GI/DVT prophylaxsis - fu with pulmonary /cardiac recs/ID -cocci titers neg ambulate without oxygen pending labs> shon bynum tmw Result Diagram: 09/19/18 0630 09/19/18 0630 Results 24hrs Laboratory Tests Test 09/19/18 09:02 09/19/18 12:16 09/19/18 17:10 09/19/18 20:47 Lab Scanned Report REFERENCE LAB Bedside Glucose 220 74 114 Test 09/20/18 07:47 Bedside Glucose 116 Subjective 24 Hr Interval Summary Free Text/Dictation feels ok, some nasal congestion Exam/Review of Systems Exam Vitals Vital Signs Date Temp Pulse Resp B/P (MAP) Pulse Ox O2 O2 Flow FiO2 Time Delivery Rate 09/20/18 69 08:06 09/20/18 Nasal 2.0 07:55 Cannula 09/20/18 97.9 18 125/62 96 07:35 (83) 09/19/18 21 20:35 Intake and Output 09/19/18 09/19/18 09/20/18 1515:00 23:00 07:00 IntakeIntake Total 800 ml 500 ml OutputOutput Total 600 ml 800 ml BalanceBalance 200 ml -300 ml Exam GENERAL: The patient is awake, alert, oriented, does not appear to in any acute distress. HEENT: Pupils are equal, round, react to light. NECK: Supple. No JVD. HEART: Regular rate and rhythm. LUNGS: some coarse breath sounds ABDOMEN: Soft, nontender, nondistended, positive normoactive bowel sounds. The patient is obese. EXTREMITIES: Trace edema. Results Results 24hrs Laboratory Tests Test 09/19/18 09:02 09/19/18 12:16 09/19/18 17:10 09/19/18 20:47 Lab Scanned Report REFERENCE LAB Bedside Glucose 220 74 114 Test 09/20/18 07:47 Bedside Glucose 116 Medications Medication Current Medications IV Flush (NS 3 ml) 3 ml PER PROTOCOL IV ; Start 09/11/18 at 15:00 Ondansetron HCl (Zofran Inj) 4 mg Q6H PRN IV NAUSEA/VOMITING Last administered on 09/18/18at 09:25; Admin Dose 4 MG; Start 09/11/18 at 15:00 Acetaminophen (Tylenol Tab) 650 mg Q6H PRN PO .PAIN 1-3 OR TEMP Last administered on 09/16/18at 11:44; Admin Dose 650 MG; Start 09/11/18 at 15:00 Acetaminophen/ Hydrocodone Bitart ([place] (5/325)) 1 tab Q6H PRN PO .MOD PAIN 4-6; Start 09/11/18 at 15:00 Docusate Sodium (Colace) 100 mg Q12H PRN PO .CONSTIPATION; Start 09/11/18 at 15:00 Pantoprazole (Protonix Tab) 40 mg DAILY@06 PO Last administered on 09/20/18 06:58; Admin Dose 40 MG; Start 09/12/18 at 06:00 Allopurinol (Zyloprim) 100 mg DAILY PO Last administered on 09/20/18 08:15; Admin Dose 100 MG; Start 09/12/18 at 09:00 Aspirin (Halfprin) 81 mg DAILY PO Last administered on 09/20/18 08:15; Admin Dose 81 MG; Start 09/12/18 at 09:00 Atorvastatin Calcium (Lipitor) 20 mg QHS PO Last administered on 09/19/18 20:49; Admin Dose 20 MG; Start 09/11/18 at 21:00 Carvedilol (Coreg) 25 mg BID PO Last administered on 09/20/18 08:15; Admin Dose 25 MG; Start 09/11/18 at 21:00 Hydralazine HCl (Apresoline) 50 mg Q8 PO Last administered on 09/20/18 06:00; Admin Dose 50 MG; Start 09/11/18 at 22:00 Isosorbide Mononitrate (Imdur) 60 mg DAILY PO Last administered on 09/20/18 08:14; Admin Dose 60 MG; Start 09/12/18 at 09:00 Latanoprost (Xalatan) 1 drop QHS BOTH EYES Last administered on 09/19/18 21:00; Admin Dose 1 DROP; Start 09/11/18 at 21:00 Levothyroxine Sodium (Synthroid) 75 mcg BEFORE BREAKFAST PO Last administered on 09/20/18 06:58; Admin Dose 75 MCG; Start 09/12/18 at 07:00 Ticagrelor (Brilinta) 90 mg Q12 PO Last administered on 09/20/18 08:20; Admin Dose 90 MG; Start 09/11/18 at 21:00 Diagnostic Test (Pha) (Accu-Chek) 1 ea AC MEALS AND BEDTIME XX Last administered on 09/20/18 07:49; Admin Dose 1 EA; Start 09/11/18 at 17:25 Albuterol/ Ipratropium (Duoneb) 3 ml Q4H RESP THERAPY HHN Last administered on 09/19/18 20:35; Admin Dose 3 ML; Start 09/11/18 at 17:00 Guaifenesin/ Dextromethorphan (Robitussin Dm Liquid Cup) 10 ml Q4H PRN PO COUGH Last administered on 09/19/18at 20:48; Admin Dose 10 ML; Start 09/14/18 at 10:30 Heparin Sodium (Porcine) (Heparin (5000 Units/1ml)) 5,000 unit BID SC Last administered on 09/20/18 08:20; Admin Dose 5,000 UNIT; Start 09/15/18 at 21:00 Megestrol Acetate (Megace Susp) 400 mg BID PO Last administered on 09/20/18at 08:14; Admin Dose 400 MG; Start 09/16/18 at 14:00 Diagnostic Test (Pha) (Accu-Chek) 1 ea 02 XX Last administered on 09/20/18at 02:00; Admin Dose 1 EA; Start 09/20/18 at 02:00 Insulin Aspart (Novolog Insulin Pen) NOVOLOG *MILD* ALGORITHM WITH MEALS BEDTIME SC Last administered on 09/19/18 14:03; Admin Dose 2 UNIT; Start 09/19/18 at 13:30 Miscellaneous Information 1 ea NOTE XX ; Start 09/19/18 at 13:30 Glucose (Glutose) 15 gm Q15M PRN PO DECREASED GLUCOSE; Start 09/19/18 at 13:30 Glucose (Glutose) 22.5 gm Q15M PRN PO DECREASED GLUCOSE; Start 09/19/18 at 13:30 Dextrose (D50w Syringe) 25 ml Q15M PRN IV DECREASED GLUCOSE; Start 09/19/18 at 13:30 Dextrose (D50w Syringe) 50 ml Q15M PRN IV DECREASED GLUCOSE; Start 09/19/18 at 13:30 Glucagon (Glucagen) 1 mg Q15M PRN IM DECREASED GLUCOSE; Start 09/19/18 at 13:30 Glucose (Glutose) 15 gm Q15M PRN BUCCAL DECREASED GLUCOSE; Start 09/19/18 at 13: 30 MERT BENITEZ MD Sep 20, 2018 08:36
[2018-09-20] MEDS ORDERED: FUROSEMIDE 40 MG TAB PO SCH (09:00)
--- NOTE | 2018-09-20 10:36 | CONS ---
Assessment/Plan Assessment/Plan Assessment/Plan (Daily) Assessment recommendations; 1. Patient admitted for shortness of breath due to underlying cardiomyopathy with CHF exacerbation with significant clinical and radiological improvement. 2. Chronic renal insufficiency with stable serum creatinine. 3. History of transcutaneous aortic valve placement. 4. Chronic anemia. 5. Nodule seen on CT imaging of the chest likely representing pulmonary edema with significant improvement on chest x-ray performed on the first of this month. Continue current supportive care. Consider discharge. Consultation Date/Type/Reason Admit Date/Time Sep 12, 2018 at 09:28 Initial Consult Date 09/13/18 Type of Consult Pulmonary pulmonary consult requested for evaluation of hypoxemia. Patient is a very pleasant 83-year-old gentleman who came into the hospital with a few days history of increasing shortness of breath. Patient denies any chest pain, wheezing, cough, sputum production hemoptysis, any fever or chills. Upon evaluation further workup was done including a chest x-ray as well as CT chest and BNP level which are consistent with exacerbation of underlying cardiomyopathy with CHF. Patient feeling somewhat better since admission. Complains of chronic dyspnea on exertion. Past medical history; 1. Cardiomyopathy with EF of around 25%. 2. Chronic renal insufficiency. 3. History of diabetes and hypertension. 4. Status post transcutaneous aortic valve replacement. 5. History of cardiac arrhythmia, status post pacemaker placement in the past. 6. History of appendectomy. Medications; reviewed. Allergies; none. Social history; patient never smoked. No stable alcohol or drug abuse. Family history; patient is single. 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 Review of systems; denies any headache, visual changes, sinus symptoms. Any chest pain or angina. Shortness of breath has improved since admission. Complains of chronic dyspnea on exertion. Complains of chronic orthopnea. Denies any abdominal pain, nausea vomiting. Any melena or hematochezia. Any urinary symptoms. Denies any weight loss. Denies any weight gain. General exam; elderly male, awake alert, currently in no distress. Looks younger than stated age. Requesting Provider: MERT BENITEZ MD Date/Time of Note DATE: 09/20/18 TIME: 10:32 24 HR Interval Summary Free Text/Dictation Patient's condition is stable. Denies any shortness of breath at rest. Any coughing, wheezing, sputum production. General exam; elderly male, awake alert, currently no distress. On room air. Exam/Review of Systems Exam Vitals Vital Signs Date Temp Pulse Resp B/P (MAP) Pulse Ox O2 O2 Flow FiO2 Time Delivery Rate 09/20/18 75 16 95 21 10:12 09/20/18 Nasal 2.0 07:55 Cannula 09/20/18 97.9 125/62 07:35 (83) Intake and Output 09/19/18 09/19/18 09/20/18 1414:59 22:59 06:59 IntakeIntake Total 800 ml 500 ml OutputOutput Total 600 ml 800 ml BalanceBalance 200 ml -300 ml Exam H EENT exam; supple neck, positive JVD. No lymphadenopathy. Midline trachea. No thyromegaly. Patient has carious teeth. Chest exam; clear to auscultation. S1-S2 audible, no murmurs. Regular rhythm. Abdomen exam; soft, nontender. No organomegaly. Bowel sounds audible. Extremity exam; no peripheral edema clubbing. 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 Results Result Diagram: 09/20/18 0729 09/20/18 0729 Results 24hrs Laboratory Tests Test 09/19/18 12:16 09/19/18 17:10 09/19/18 20:47 09/20/18 07:29 Bedside Glucose 220 74 114 White Blood Count 3.9 L Red Blood Count 3.72 L Hemoglobin 9.7 L Hematocrit 30.1 L Mean Corpuscular Volume 80.9 L Mean Corpuscular 26.1 L Hemoglobin Mean Corpuscular 32.2 Hemoglobin Concent Red Cell Distribution 16.7 H Width Platelet Count 184 Mean Platelet Volume 11.9 H Immature Granulocytes % 0.800 H Neutrophils % 38.2 L Lymphocytes % 51.4 H Monocytes % 8.5 Eosinophils % 0.8 Basophils % 0.3 Nucleated Red Blood 0.0 Cells % Immature Granulocytes # 0.030 Neutrophils # 1.5 L Lymphocytes # 2.0 Monocytes # 0.3 Eosinophils # 0.0 Basophils # 0.0 Nucleated Red Blood 0.0 Cells # Sodium Level 143 Potassium Level 4.1 Chloride Level 103 Carbon Dioxide Level 25 Anion Gap 15 H Blood Urea Nitrogen 86 H Creatinine 2.63 H Est Glomerular Filtrat Rate mL/min Glucose Level 103 Calcium Level 9.7 Phosphorus Level 4.2 Magnesium Level 2.2 Test 09/20/18 07:47 Bedside Glucose 116 Medications Medication Current Medications IV Flush (NS 3 ml) 3 ml PER PROTOCOL IV ; Start 09/11/18 at 15:00 Ondansetron HCl (Zofran Inj) 4 mg Q6H PRN IV NAUSEA/VOMITING Last administered on 09/18/18 09:25; Admin Dose 4 MG; Start 09/11/18 at 15:00 Acetaminophen (Tylenol Tab) 650 mg Q6H PRN PO .PAIN 1-3 OR TEMP Last administered on 09/16/18 11:44; Admin Dose 650 MG; Start 09/11/18 at 15:00 Acetaminophen/ Hydrocodone Bitart ([place] (5/325)) 1 tab Q6H PRN PO .MOD PAIN 4- 6; Start 09/11/18 at 15:00 Docusate Sodium (Colace) 100 mg Q12H PRN PO .CONSTIPATION; Start 09/11/18 at 15:00 Pantoprazole (Protonix Tab) 40 mg DAILY@06 PO Last administered on 09/20/18 06:58; Admin Dose 40 MG; Start 09/12/18 at 06:00 Allopurinol (Zyloprim) 100 mg DAILY PO Last administered on 09/20/18 08:15; Admin Dose 100 MG; Start 09/12/18 at 09:00 Aspirin (Halfprin) 81 mg DAILY PO Last administered on 09/20/18 08:15; Admin Dose 81 MG; Start 09/12/18 at 09:00 Atorvastatin Calcium (Lipitor) 20 mg QHS PO Last administered on 09/19/18 20:49; Admin Dose 20 MG; Start 09/11/18 at 21:00 Carvedilol (Coreg) 25 mg BID PO Last administered on 09/20/18 08:15; Admin Dose 25 MG; Start 09/11/18 at 21:00 Hydralazine HCl (Apresoline) 50 mg Q8 PO Last administered on 09/20/18 06:00; Admin Dose 50 MG; Start 09/11/18 at 22:00 Isosorbide Mononitrate (Imdur) 60 mg DAILY PO Last administered on 09/20/18 08:14; Admin Dose 60 MG; Start 09/12/18 at 09:00 Latanoprost (Xalatan) 1 drop QHS BOTH EYES Last administered on 09/19/18 21:00; Admin Dose 1 DROP; Start 09/11/18 at 21:00 Levothyroxine Sodium (Synthroid) 75 mcg BEFORE BREAKFAST PO Last administered on 09/20/18 06:58; Admin Dose 75 MCG; Start 09/12/18 at 07:00 Ticagrelor (Brilinta) 90 mg Q12 PO Last administered on 09/20/18 08:20; Admin Dose 90 MG; Start 09/11/18 at 21:00 Diagnostic Test (Pha) (Accu-Chek) 1 ea AC MEALS AND BEDTIME XX Last administered on 09/20/18 07:49; Admin Dose 1 EA; Start 09/11/18 at 17:25 Albuterol/ Ipratropium (Duoneb) 3 ml Q4H RESP THERAPY HHN Last administered on 09/20/18 10:10; Admin Dose 3 ML; Start 09/11/18 at 17:00 Guaifenesin/ Dextromethorphan (Robitussin Dm Liquid Cup) 10 ml Q4H PRN PO COUGH Last administered on 09/19/18 20:48; Admin Dose 10 ML; Start 09/14/18 at 10:30 Heparin Sodium (Porcine) (Heparin (5000 Units/1ml)) 5,000 unit BID SC Last administered on 09/20/18 08:20; Admin Dose 5,000 UNIT; Start 09/15/18 at 21:00 Megestrol Acetate (Megace Susp) 400 mg BID PO Last administered on 09/20/18 08:14; Admin Dose 400 MG; Start 09/16/18 at 14:00 Diagnostic Test (Pha) (Accu-Chek) 1 ea 02 XX Last administered on 09/20/18 02:00; Admin Dose 1 EA; Start 09/20/18 at 02:00 Insulin Aspart (Novolog Insulin Pen) NOVOLOG *MILD* ALGORITHM WITH MEALS BEDTIM E SC Last administered on 09/19/18 14:03; Admin Dose 2 UNIT; Start 09/19/18 at 13:30 Miscellaneous Information 1 ea NOTE XX ; Start 09/19/18 at 13:30 Glucose (Glutose) 15 gm Q15M PRN PO DECREASED GLUCOSE; Start 09/19/18 at 13:30 Glucose (Glutose) 22.5 gm Q15M PRN PO DECREASED GLUCOSE; Start 09/19/18 at 13:30 Dextrose (D50w Syringe) 25 ml Q15M PRN IV DECREASED GLUCOSE; Start 09/19/18 at 13:30 Dextrose (D50w Syringe) 50 ml Q15M PRN IV DECREASED GLUCOSE; Start 09/19/18 at 13:30 Glucagon (Glucagen) 1 mg Q15M PRN IM DECREASED GLUCOSE; Start 09/19/18 at 13:30 Glucose (Glutose) 15 gm Q15M PRN BUCCAL DECREASED GLUCOSE; Start 09/19/18 at 13:30 Furosemide (Lasix) 40 mg DAILY PO ; Start 09/20/18 at 09:00 CARMELO JOYA Sep 20, 2018 10:36
--- NOTE | 2018-09-20 11:45 | CONS ---
Assessment/Plan Assessment/Plan Hospital Course (Demo Recall) All noted, no events MRSA swab negative Physical examination: This is a well-developed obese elderly man who is alert in no distress. Head atraumatic normocephalic sclera nonicteric. Neck is supple. Chest rise symmetrical breath sounds diminished bases. Heart: S1-S2. Abdomen soft bowel sounds present. Extremities without cyanosis Assessment: 1. Acute hypoxemia on admission 2. Possible pneumonia 3. Cardiomyopathy with CHF exacerbation 4. Acute possibly on chronic kidney disease 5. Coronary artery disease with a history of aortic valve replacement 6. Diabetes 7. Hypertension Plan: Stable, off antibiotics, f/u card/pulmonary rec-s Consultation Date/Type/Reason Admit Date/Time Sep 12, 2018 at 09:28 Initial Consult Date 09/13/18 Type of Consult id Requesting Provider: MERT BENITEZ MD Date/Time of Note DATE: 09/20/18 TIME: 11:44 Exam/Review of Systems Exam Vitals Vital Signs Date Temp Pulse Resp B/P (MAP) Pulse Ox O2 O2 Flow FiO2 Time Delivery Rate 09/20/18 98.9 62 18 100/59 96 Room Air 11:34 (73) 09/20/18 21 10:12 09/20/18 2.0 07:55 Intake and Output 09/19/18 09/19/18 09/20/18 1515:00 23:00 07:00 IntakeIntake Total 800 ml 500 ml OutputOutput Total 600 ml 800 ml BalanceBalance 200 ml -300 ml Results Result Diagram: 09/20/18 0729 09/20/18 0729 Results 24hrs Laboratory Tests Test 09/19/18 12:16 09/19/18 17:10 09/19/18 20:47 09/20/18 07:29 Bedside Glucose 220 74 114 White Blood Count 3.9 L Red Blood Count 3.72 L Hemoglobin 9.7 L Hematocrit 30.1 L Mean Corpuscular Volume 80.9 L Mean Corpuscular 26.1 L Hemoglobin Mean Corpuscular 32.2 Hemoglobin Concent Red Cell Distribution 16.7 H Width Platelet Count 184 Mean Platelet Volume 11.9 H Immature Granulocytes % 0.800 H Neutrophils % 38.2 L Lymphocytes % 51.4 H Monocytes % 8.5 Eosinophils % 0.8 Basophils % 0.3 Nucleated Red Blood 0.0 Cells % Immature Granulocytes # 0.030 Neutrophils # 1.5 L Lymphocytes # 2.0 Monocytes # 0.3 Eosinophils # 0.0 Basophils # 0.0 Nucleated Red Blood 0.0 Cells # Sodium Level 143 Potassium Level 4.1 Chloride Level 103 Carbon Dioxide Level 25 Anion Gap 15 H Blood Urea Nitrogen 86 H Creatinine 2.63 H Est Glomerular Filtrat Rate mL/min Glucose Level 103 Calcium Level 9.7 Phosphorus Level 4.2 Magnesium Level 2.2 Test 09/20/18 07:47 09/20/18 11:15 Bedside Glucose 116 255 H Medications Medication Current Medications IV Flush (NS 3 ml) 3 ml PER PROTOCOL IV ; Start 09/11/18 at 15:00 Ondansetron HCl (Zofran Inj) 4 mg Q6H PRN IV NAUSEA/VOMITING Last administered on 09/18/18 09:25; Admin Dose 4 MG; Start 09/11/18 at 15:00 Acetaminophen (Tylenol Tab) 650 mg Q6H PRN PO .PAIN 1-3 OR TEMP Last administered on 09/16/18 11:44; Admin Dose 650 MG; Start 09/11/18 at 15:00 Acetaminophen/ Hydrocodone Bitart ([place] (5/325)) 1 tab Q6H PRN PO .MOD PAIN 4- 6; Start 09/11/18 at 15:00 Docusate Sodium (Colace) 100 mg Q12H PRN PO .CONSTIPATION; Start 09/11/18 at 15:00 Pantoprazole (Protonix Tab) 40 mg DAILY@06 PO Last administered on 09/20/18 06:58; Admin Dose 40 MG; Start 09/12/18 at 06:00 Allopurinol (Zyloprim) 100 mg DAILY PO Last administered on 09/20/18 08:15; Admin Dose 100 MG; Start 09/12/18 at 09:00 Aspirin (Halfprin) 81 mg DAILY PO Last administered on 09/20/18 08:15; Admin Dose 81 MG; Start 09/12/18 at 09:00 Atorvastatin Calcium (Lipitor) 20 mg QHS PO Last administered on 09/19/18 20:49; Admin Dose 20 MG; Start 09/11/18 at 21:00 Carvedilol (Coreg) 25 mg BID PO Last administered on 09/20/18 08:15; Admin Dose 25 MG; Start 09/11/18 at 21:00 Hydralazine HCl (Apresoline) 50 mg Q8 PO Last administered on 09/20/18 06:00; Admin Dose 50 MG; Start 09/11/18 at 22:00 Isosorbide Mononitrate (Imdur) 60 mg DAILY PO Last administered on 09/20/18 08:14; Admin Dose 60 MG; Start 09/12/18 at 09:00 Latanoprost (Xalatan) 1 drop QHS BOTH EYES Last administered on 09/19/18 21:00; Admin Dose 1 DROP; Start 09/11/18 at 21:00 Levothyroxine Sodium (Synthroid) 75 mcg BEFORE BREAKFAST PO Last administered on 09/20/18 06:58; Admin Dose 75 MCG; Start 09/12/18 at 07:00 Ticagrelor (Brilinta) 90 mg Q12 PO Last administered on 09/20/18 08:20; Admin Dose 90 MG; Start 09/11/18 at 21:00 Diagnostic Test (Pha) (Accu-Chek) 1 ea AC MEALS AND BEDTIME XX Last administered on 09/20/18 11:16; Admin Dose 1 EA; Start 09/11/18 at 17:25 Albuterol/ Ipratropium (Duoneb) 3 ml Q4H RESP THERAPY HHN Last administered on 09/20/18 10:10; Admin Dose 3 ML; Start 09/11/18 at 17:00 Guaifenesin/ Dextromethorphan (Robitussin Dm Liquid Cup) 10 ml Q4H PRN PO COUGH Last administered on 09/19/18 20:48; Admin Dose 10 ML; Start 09/14/18 at 10:30 Heparin Sodium (Porcine) (Heparin (5000 Units/1ml)) 5,000 unit BID SC Last administered on 09/20/18 08:20; Admin Dose 5,000 UNIT; Start 09/15/18 at 21:00 Megestrol Acetate (Megace Susp) 400 mg BID PO Last administered on 09/20/18 08:14; Admin Dose 400 MG; Start 09/16/18 at 14:00 Diagnostic Test (Pha) (Accu-Chek) 1 ea 02 XX Last administered on 09/20/18 02:00; Admin Dose 1 EA; Start 09/20/18 at 02:00 Insulin Aspart (Novolog Insulin Pen) NOVOLOG *MILD* ALGORITHM WITH MEALS BEDTIME SC Last administered on 09/20/18at 11:20; Admin Dose 3 UNIT; Start 09/19/18 at 13:30 Miscellaneous Information 1 ea NOTE XX ; Start 09/19/18 at 13:30 Glucose (Glutose) 15 gm Q15M PRN PO DECREASED GLUCOSE; Start 09/19/18 at 13:30 Glucose (Glutose) 22.5 gm Q15M PRN PO DECREASED GLUCOSE; Start 09/19/18 at 13:30 Dextrose (D50w Syringe) 25 ml Q15M PRN IV DECREASED GLUCOSE; Start 09/19/18 at 13:30 Dextrose (D50w Syringe) 50 ml Q15M PRN IV DECREASED GLUCOSE; Start 09/19/18 at 13:30 Glucagon (Glucagen) 1 mg Q15M PRN IM DECREASED GLUCOSE; Start 09/19/18 at 13:30 Glucose (Glutose) 15 gm Q15M PRN BUCCAL DECREASED GLUCOSE; Start 09/19/18 at 13:30 Furosemide (Lasix) 40 mg DAILY PO Last administered on 09/20/18at 11:42; Admin Dose 40 MG; Start 09/20/18 at 09:00 DOMONIQUE ANGELO NP Sep 20, 2018 11:45
[2018-09-20] MEDS: GUAIFENESIN/DM 5ML CUP PO PRN ×2 (14:04→21:49)
[2018-09-20] MEDS ORDERED: SOD CHLORIDE 0.45% 1,000 ML IV SCH (15:00)
--- NOTE | 2018-09-20 15:19 | CONS ---
Assessment/Plan Assessment/Plan Hospital Course (Demo Recall) IMPRESSION: 1. Congestive heart failure exacerbation, systolic, acute on chronic.-neg trop x 3. Now s/p lexiscan with mainly scar. No sig ischemia by read. EF 29% 2. Cardiomyopathy with decreased left ventricular ejection fraction, last known to be approximately 30% by echo in 04/2018. 25% by echo this admit 3. History of PTCA and stent placement, most recently to right coronary artery and left main in 06/2017. 4. History of transcatheter aortic valve replacement or TAVR in 10/2017.-proper function by echo this admit 5. Hypertension. 6. Dyslipidemia. 7. Chronic kidney disease, not on hemodialysis. 8. Shortness of breath secondary to #1. 9. Fevers 10. nodules-per pulmonology to high risk for Bx?? PLan: -Tele -Continue asa/brilinta -Continue coreg/hydralazine/imdur with well controlled BP -Lasix again held in the setting of acute on chronic renal failure, Follow volume status and creatnine closely -Continue abx's and f/u cx data -will discuss with nephrology Consultation Date/Type/Reason Admit Date/Time Sep 12, 2018 at 09:28 Initial Consult Date 09/13/18 Type of Consult Cardiology Reason for Consultation CHF Requesting Provider: MERT BENITEZ MD Date/Time of Note DATE: 09/20/18 TIME: 15:16 Exam/Review of Systems Vital Signs Vitals Vital Signs Date Temp Pulse Resp B/P (MAP) Pulse Ox O2 O2 Flow FiO2 Time Delivery Rate 09/20/18 78 16 96 21 14:09 09/20/18 98.9 100/59 Room Air 11:34 (73) 09/20/18 2.0 07:55 Intake and Output 09/19/18 09/19/18 09/20/18 1515:00 23:00 07:00 IntakeIntake Total 800 ml 500 ml OutputOutput Total 600 ml 800 ml BalanceBalance 200 ml -300 ml Exam Exam Review of Systems: CONSTITUTIONAL: No fevers, chills. PULMONARY: No sob CARDIOVASCULAR: No chest pain/palpitations GASTROINTESTINAL: No nausea/vomiting. GENITOURINARY: No hematuria/dysuria. MUSCULOSKELETAL: No myagias/arthalgias. PSYCHIATRIC: The patient denies depression. NEUROLOGIC: No weakness Constitutional: alert, oriented Psych: no complaints Head: normocephalic ENMT: mucosa pink and moist Neck: supple, jvd (9 cm water) Respiratory: diminished breath sounds Cardiovascular: regular rate and rhythm Gastrointestinal: soft, non-tender Musculoskeletal: muscle tone (normal) Extremities: edema (none) Neurological: other (No focal deficits) Labs Result Diagram: 09/20/18 0729 09/20/18 0729 Results 24hrs Laboratory Tests Test 09/19/18 17:10 09/19/18 20:47 09/20/18 07:29 09/20/18 07:47 Bedside Glucose 74 114 116 White Blood Count 3.9 L Red Blood Count 3.72 L Hemoglobin 9.7 L Hematocrit 30.1 L Mean Corpuscular Volume 80.9 L Mean Corpuscular 26.1 L Hemoglobin Mean Corpuscular 32.2 Hemoglobin Concent Red Cell Distribution 16.7 H Width Platelet Count 184 Mean Platelet Volume 11.9 H Immature Granulocytes % 0.800 H Neutrophils % 38.2 L Lymphocytes % 51.4 H Monocytes % 8.5 Eosinophils % 0.8 Basophils % 0.3 Nucleated Red Blood 0.0 Cells % Immature Granulocytes # 0.030 Neutrophils # 1.5 L Lymphocytes # 2.0 Monocytes # 0.3 Eosinophils # 0.0 Basophils # 0.0 Nucleated Red Blood 0.0 Cells # Sodium Level 143 Potassium Level 4.1 Chloride Level 103 Carbon Dioxide Level 25 Anion Gap 15 H Blood Urea Nitrogen 86 H Creatinine 2.63 H Est Glomerular Filtrat Rate mL/min Glucose Level 103 Calcium Level 9.7 Phosphorus Level 4.2 Magnesium Level 2.2 Test 09/20/18 11:15 Bedside Glucose 255 H Medications Medications Current Medications IV Flush (NS 3 ml) 3 ml PER PROTOCOL IV ; Start 09/11/18 at 15:00 Ondansetron HCl (Zofran Inj) 4 mg Q6H PRN IV NAUSEA/VOMITING Last administered on 09/18/18at 09:25; Admin Dose 4 MG; Start 09/11/18 at 15:00 Acetaminophen (Tylenol Tab) 650 mg Q6H PRN PO .PAIN 1-3 OR TEMP Last administered on 09/16/18at 11:44; Admin Dose 650 MG; Start 09/11/18 at 15:00 Acetaminophen/ Hydrocodone Bitart ([place] (5/325)) 1 tab Q6H PRN PO .MOD PAIN 4- 6; Start 09/11/18 at 15:00 Docusate Sodium (Colace) 100 mg Q12H PRN PO .CONSTIPATION; Start 09/11/18 at 15:00 Pantoprazole (Protonix Tab) 40 mg DAILY@06 PO Last administered on 09/20/18 06:58; Admin Dose 40 MG; Start 09/12/18 at 06:00 Allopurinol (Zyloprim) 100 mg DAILY PO Last administered on 09/20/18 08:15; A dmin Dose 100 MG; Start 09/12/18 at 09:00 Aspirin (Halfprin) 81 mg DAILY PO Last administered on 09/20/18 08:15; Admin Dose 81 MG; Start 09/12/18 at 09:00 Atorvastatin Calcium (Lipitor) 20 mg QHS PO Last administered on 09/19/18 20:49; Admin Dose 20 MG; Start 09/11/18 at 21:00 Carvedilol (Coreg) 25 mg BID PO Last administered on 09/20/18 08:15; Admin Dose 25 MG; Start 09/11/18 at 21:00 Hydralazine HCl (Apresoline) 50 mg Q8 PO Last administered on 09/20/18 06:00; Admin Dose 50 MG; Start 09/11/18 at 22:00 Isosorbide Mononitrate (Imdur) 60 mg DAILY PO Last administered on 09/20/18 08:14; Admin Dose 60 MG; Start 09/12/18 at 09:00 Latanoprost (Xalatan) 1 drop QHS BOTH EYES Last administered on 09/19/18 21:00; Admin Dose 1 DROP; Start 09/11/18 at 21:00 Levothyroxine Sodium (Synthroid) 75 mcg BEFORE BREAKFAST PO Last administered on 09/20/18 06:58; Admin Dose 75 MCG; Start 09/12/18 at 07:00 Ticagrelor (Brilinta) 90 mg Q12 PO Last administered on 09/20/18 08:20; Admin Dose 90 MG; Start 09/11/18 at 21:00 Diagnostic Test (Pha) (Accu-Chek) 1 ea AC MEALS AND BEDTIME XX Last administer ed on 09/20/18 11:16; Admin Dose 1 EA; Start 09/11/18 at 17:25 Albuterol/ Ipratropium (Duoneb) 3 ml Q4H RESP THERAPY HHN Last administered on 09/20/18 14:08; Admin Dose 3 ML; Start 09/11/18 at 17:00 Guaifenesin/ Dextromethorphan (Robitussin Dm Liquid Cup) 10 ml Q4H PRN PO COUGH Last administered on 09/20/18 14:04; Admin Dose 10 ML; Start 09/14/18 at 10:30 Heparin Sodium (Porcine) (Heparin (5000 Units/1ml)) 5,000 unit BID SC Last administered on 09/20/18 08:20; Admin Dose 5,000 UNIT; Start 09/15/18 at 21:00 Megestrol Acetate (Megace Susp) 400 mg BID PO Last administered on 09/20/18 08:14; Admin Dose 400 MG; Start 09/16/18 at 14:00 Diagnostic Test (Pha) (Accu-Chek) 1 ea 02 XX Last administered on 09/20/18at 02:00; Admin Dose 1 EA; Start 09/20/18 at 02:00 Insulin Aspart (Novolog Insulin Pen) NOVOLOG *MILD* ALGORITHM WITH MEALS BEDTIME SC Last administered on 09/20/18 11:20; Admin Dose 3 UNIT; Start 09/19/18 at 13:30 Miscellaneous Information 1 ea NOTE XX ; Start 09/19/18 at 13:30 Glucose (Glutose) 15 gm Q15M PRN PO DECREASED GLUCOSE; Start 09/19/18 at 13:30 Glucose (Glutose) 22.5 gm Q15M PRN PO DECREASED GLUCOSE; Start 09/19/18 at 13:30 Dextrose (D50w Syringe) 25 ml Q15M PRN IV DECREASED GLUCOSE; Start 09/19/18 at 13:30 Dextrose (D50w Syringe) 50 ml Q15M PRN IV DECREASED GLUCOSE; Start 09/19/18 at 13:30 Glucagon (Glucagen) 1 mg Q15M PRN IM DECREASED GLUCOSE; Start 09/19/18 at 13:30 Glucose (Glutose) 15 gm Q15M PRN BUCCAL DECREASED GLUCOSE; Start 09/19/18 at 13:30 Sodium Chloride 1,000 ml @ 40 mls/hr Q24H IV Last administered on 09/20/18at 14:59; Admin Dose 40 MLS/HR; Start 09/20/18 at 15:00; Stop 09/20/18 at 21:14 ELEANOR ROLDAN Sep 20, 2018 15:18
[2018-09-20] MEDS: ATORVASTATIN 20 MG TAB PO SCH (21:23)
[2018-09-20] MEDS: LATANOPROST 0.005% 2.5 ML OPH BOTH EYES SCH (21:24)
[2018-09-21] VITALS (10 sets, daily range): BP systolic 109–132; BP diastolic 58–65; PULSE 61–74; RESP 16–26
[2018-09-21] MEDS: ALBUTEROL/IPRATROPIUM (NEB) 3 ML AMP HHN SCH ×6 (00:18→21:02)
[2018-09-21] MEDS: ACCU-CHEK XX SCH ×5 (02:00→21:00)
[2018-09-21] MEDS: LEVOTHYROXINE 75 MCG TAB PO SCH (06:36)
[2018-09-21] MEDS: PANTOPRAZOLE (EC) 40 MG TAB PO SCH (06:36)
[2018-09-21] MEDS: INSULIN ASPART [NOVOLOG] 3 ML PEN SC SCH ×4 (07:28→22:19)
[2018-09-21] MEDS: MEGESTROL (40 MG/ML) 10ML CUP PO SCH ×2 (08:16→21:51)
[2018-09-21] MEDS: ISOSORBIDE MONONITRATE(SR)60 MG TAB PO SCH (08:16)
[2018-09-21] MEDS: ALLOPURINOL 100 MG TAB PO SCH (08:16)
[2018-09-21] MEDS: ASPIRIN (EC) 81 MG TAB PO SCH (08:18)
[2018-09-21] MEDS: HEPARIN 5,000 UNIT/1 ML VIAL SC SCH ×2 (08:22→21:00)
[2018-09-21] MEDS: TICAGRELOR 90 MG TABLET PO SCH ×2 (08:22→22:19)
--- NOTE | 2018-09-21 10:01 | PN ---
Date/Time of Note Date/Time of Note DATE: 09/21/18 TIME: 10:01 Assessment/Plan VTE Prophylaxis Risk score (from Ns)>0 risk: 5 SCD applied (from Ns): Yes Pharmacological prophylaxis: NA/contraindicated Pharm contraindication: low risk/ambulating Lines/Catheters IV Catheter Type (from [facility], [place]): Saline Lock Urinary Cath still in place: No Assessment/Plan Hospital Course 83-year-old male who presented with: 1. Shortness of breath likely secondary to congestive heart failure exacerbation, acute on chronic. However, the patient also had low-grade fevers. We cannot rule out underlying pneumonia. CT of the chest shows Numerous nodular consolidative opacities throughout both lungs. These probably represent a multifocal pneumonia, possibly atypical, however other entities such as septic emboli or metastatic disease cannot be excluded. 2. History of acute on chronic congestive heart failure. 3. Chronic kidney disease stage III. now with KEN due to diuresis, Cr was stable yesterday 4. Elevated BNP due to congestive heart failure. 5. Diabetes.on orals 6. Hypertension. 7. Hyperlipidemia. 8. Cardiomyopathy with reduced EF of 30% to 35%.now 25% 9. History of transaortic valve replacement. Sivakumar - abx stopped per ID> and was seen by oncology and recommended getting CT of chest in few to 6 weeks -pt has elevated BUN.CR ratio with uremia, lung exam improved > will give gentle fluid -Patient is not a candidate for any kind of biopsy per pulmonary due to her advanced comorbidities as patient will need VATS which is very invasive procedure given her given his age and comorbidities -Echo worsening EF of 25% -CEA, CA 189 and PSA wnl -Agree with aspirin statin Brilinta Coreg -Cardiac stress test reviewed results however patient is not a candidate for any angiogram due to renal failure - V/Q negative for PE - GI/DVT prophylaxsis - fu with pulmonary /cardiac recs/ID -cocci titers neg dc pending improvement in uremia pt does not wish to be on HD in future Result Diagram: 09/20/18 0729 09/21/18 0739 Results 24hrs Laboratory Tests Test 09/20/18 11:15 09/20/18 17:16 09/20/18 20:48 09/21/18 07:27 Bedside Glucose 255 H 178 187 137 Test 09/21/18 07:39 Sodium Level 142 Potassium Level 4.5 Chloride Level 106 Carbon Dioxide Level 24 Anion Gap 12 Blood Urea Nitrogen 92 H Creatinine 2.39 H Est Glomerular Filtrat Rate mL/min Glucose Level 133 Calcium Level 9.8 Subjective 24 Hr Interval Summary Free Text/Dictation pt feels little weak Exam/Review of Systems Exam Vitals Vital Signs Date Temp Pulse Resp B/P (MAP) Pulse Ox O2 O2 Flow FiO2 Time Delivery Rate 09/21/18 65 09:20 09/21/18 97.6 16 114/59 99 Room Air 07:45 (77) 09/21/18 21 07:38 09/20/18 2.0 23:10 Intake and Output 09/20/18 09/20/18 09/21/18 1515:00 23:00 07:00 IntakeIntake Total 400 ml OutputOutput Total 850 ml BalanceBalance -450 ml Exam GENERAL: The patient is awake, alert, oriented, does not appear to in any acute distress. HEENT: Pupils are equal, round, react to light. NECK: Supple. No JVD. HEART: Regular rate and rhythm. LUNGS: some coarse breath sounds ABDOMEN: Soft, nontender, nondistended, positive normoactive bowel sounds. The patient is obese. EXTREMITIES: Trace edema. Results Results 24hrs Laboratory Tests Test 09/20/18 11:15 09/20/18 17:16 09/20/18 20:48 09/21/18 07:27 Bedside Glucose 255 H 178 187 137 Test 09/21/18 07:39 Sodium Level 142 Potassium Level 4.5 Chloride Level 106 Carbon Dioxide Level 24 Anion Gap 12 Blood Urea Nitrogen 92 H Creatinine 2.39 H Est Glomerular Filtrat Rate mL/min Glucose Level 133 Calcium Level 9.8 Medications Medication Current Medications IV Flush (NS 3 ml) 3 ml PER PROTOCOL IV ; Start 09/11/18 at 15:00 Ondansetron HCl (Zofran Inj) 4 mg Q6H PRN IV NAUSEA/VOMITING Last administered on 09/18/18at 09:25; Admin Dose 4 MG; Start 09/11/18 at 15:00 Acetaminophen (Tylenol Tab) 650 mg Q6H PRN PO .PAIN 1-3 OR TEMP Last administered on 09/16/18at 11:44; Admin Dose 650 MG; Start 09/11/18 at 15:00 Acetaminophen/ Hydrocodone Bitart ([place] (5/325)) 1 tab Q6H PRN PO .MOD PAIN 4- 6; Start 09/11/18 at 15:00 Docusate Sodium (Colace) 100 mg Q12H PRN PO .CONSTIPATION; Start 09/11/18 at 15:00 Pantoprazole (Protonix Tab) 40 mg DAILY@06 PO Last administered on 09/21/18 06:36; Admin Dose 40 MG; Start 09/12/18 at 06:00 Allopurinol (Zyloprim) 100 mg DAILY PO Last administered on 09/21/18 08:16; Admin Dose 100 MG; Start 09/12/18 at 09:00 Aspirin (Halfprin) 81 mg DAILY PO Last administered on 09/21/18 08:18; Admin Dose 81 MG; Start 09/12/18 at 09:00 Atorvastatin Calcium (Lipitor) 20 mg QHS PO Last administered on 09/20/18 21:23; Admin Dose 20 MG; Start 09/11/18 at 21:00 Carvedilol (Coreg) 25 mg BID PO Last administered on 09/21/18 08:17; Admin Dose 25 MG; Start 09/11/18 at 21:00 Hydralazine HCl (Apresoline) 50 mg Q8 PO Last administered on 09/21/18 06:36; Admin Dose 50 MG; Start 09/11/18 at 22:00 Isosorbide Mononitrate (Imdur) 60 mg DAILY PO Last administered on 09/21/18 08:16; Admin Dose 60 MG; Start 09/12/18 at 09:00 Latanoprost (Xalatan) 1 drop QHS BOTH EYES Last administered on 09/20/18 21:24; Admin Dose 1 DROP; Start 09/11/18 at 21:00 Levothyroxine Sodium (Synthroid) 75 mcg BEFORE BREAKFAST PO Last administered on 09/21/18 06:36; Admin Dose 75 MCG; Start 09/12/18 at 07:00 Ticagrelor (Brilinta) 90 mg Q12 PO Last administered on 09/21/18 08:22; Admin Dose 90 MG; Start 09/11/18 at 21:00 Diagnostic Test (Pha) (Accu-Chek) 1 ea AC MEALS AND BEDTIME XX Last administered on 09/21/18 07:28; Admin Dose 1 EA; Start 09/11/18 at 17:25 Albuterol/ Ipratropium (Duoneb) 3 ml Q4H RESP THERAPY HHN Last administered on 09/21/18 07:40; Admin Dose 3 ML; Start 09/11/18 at 17:00 Guaifenesin/ Dextromethorphan (Robitussin Dm Liquid Cup) 10 ml Q4H PRN PO COUGH Last administered on 09/20/18 21:49; Admin Dose 10 ML; Start 09/14/18 at 10:30 Heparin Sodium (Porcine) (Heparin (5000 Units/1ml)) 5,000 unit BID SC Last administered on 09/21/18 08:22; Admin Dose 5,000 UNIT; Start 09/15/18 at 21:00 Megestrol Acetate (Megace Susp) 400 mg BID PO Last administered on 09/21/18 08:16; Admin Dose 400 MG; Start 09/16/18 at 14:00 Diagnostic Test (Pha) (Accu-Chek) 1 ea 02 XX Last administered on 09/20/18at 02:00; Admin Dose 1 EA; Start 09/20/18 at 02:00 Insulin Aspart (Novolog Insulin Pen) NOVOLOG *MILD* ALGORITHM WITH MEALS BEDTIME SC Last administered on 09/20/18 21:34; Admin Dose 1 UNIT; Start 09/19/18 at 13:30 Miscellaneous Information 1 ea NOTE XX ; Start 09/19/18 at 13:30 Glucose (Glutose) 15 gm Q15M PRN PO DECREASED GLUCOSE; Start 09/19/18 at 13:30 Glucose (Glutose) 22.5 gm Q15M PRN PO DECREASED GLUCOSE; Start 09/19/18 at 13:30 Dextrose (D50w Syringe) 25 ml Q15M PRN IV DECREASED GLUCOSE; Start 09/19/18 at 13:30 Dextrose (D50w Syringe) 50 ml Q15M PRN IV DECREASED GLUCOSE; Start 09/19/18 at 13:30 Glucagon (Glucagen) 1 mg Q15M PRN IM DECREASED GLUCOSE; Start 09/19/18 at 13:30 Glucose (Glutose) 15 gm Q15M PRN BUCCAL DECREASED GLUCOSE; Start 09/19/18 at 13:30 MERT BENITEZ MD Sep 21, 2018 10:01
[2018-09-21] MEDS: SOD CHLORIDE 0.45% 1,000 ML IV SCH (11:04)
--- NOTE | 2018-09-21 13:22 | CONS ---
Assessment/Plan Assessment/Plan Hospital Course (Demo Recall) All noted, no acute events looks comfortable, no fevers MRSA swab negative Physical examination: This is a well-developed obese elderly man who is alert in no distress. Head atraumatic normocephalic sclera nonicteric. Neck is supple. Chest rise symmetrical breath sounds diminished bases. Heart: S1-S2. Abdomen soft bowel sounds present. Extremities without cyanosis Assessment: 1. Acute hypoxemia on admission 2. Possible pneumonia==> treated 3. Cardiomyopathy with CHF exacerbation 4. Acute possibly on chronic kidney disease 5. Coronary artery disease with a history of aortic valve replacement 6. Diabetes 7. Hypertension Plan: Stable, off antibiotics, +QTB==> no treatment required, f/u card/pulmonary rec-s DW Dr Valenzuela Consultation Date/Type/Reason Admit Date/Time Sep 12, 2018 at 09:28 Initial Consult Date 09/13/18 Type of Consult id Requesting Provider: MERT BENITEZ MD Date/Time of Note DATE: 09/21/18 TIME: 13:20 Exam/Review of Systems Exam Vitals Vital Signs Date Temp Pulse Resp B/P (MAP) Pulse Ox O2 O2 Flow FiO2 Time Delivery Rate 09/21/18 64 15 98 21 13:05 09/21/18 97.7 114/65 Room Air 11:48 (81) 09/20/18 2.0 23:10 Intake and Output 09/20/18 09/20/18 09/21/18 1515:00 23:00 07:00 IntakeIntake Total 400 ml OutputOutput Total 850 ml BalanceBalance -450 ml Results Result Diagram: 09/20/18 0729 09/21/18 0739 Results 24hrs Laboratory Tests Test 09/20/18 17:16 09/20/18 20:48 09/21/18 07:27 09/21/18 07:39 Bedside Glucose 178 187 137 Sodium Level 142 Potassium Level 4.5 Chloride Level 106 Carbon Dioxide Level 24 Anion Gap 12 Blood Urea Nitrogen 92 H Creatinine 2.39 H Est Glomerular Filtrat Rate mL/min Glucose Level 133 Calcium Level 9.8 Test 09/21/18 11:02 Bedside Glucose 230 H Medications Medication Current Medications IV Flush (NS 3 ml) 3 ml PER PROTOCOL IV ; Start 09/11/18 at 15:00 Ondansetron HCl (Zofran Inj) 4 mg Q6H PRN IV NAUSEA/VOMITING Last administered on 09/18/18 09:25; Admin Dose 4 MG; Start 09/11/18 at 15:00 Acetaminophen (Tylenol Tab) 650 mg Q6H PRN PO .PAIN 1-3 OR TEMP Last administ ered on 09/16/18 11:44; Admin Dose 650 MG; Start 09/11/18 at 15:00 Acetaminophen/ Hydrocodone Bitart ([place] (5/325)) 1 tab Q6H PRN PO .MOD PAIN 4- 6; Start 09/11/18 at 15:00 Docusate Sodium (Colace) 100 mg Q12H PRN PO .CONSTIPATION; Start 09/11/18 at 15:00 Pantoprazole (Protonix Tab) 40 mg DAILY@06 PO Last administered on 09/21/18 06:36; Admin Dose 40 MG; Start 09/12/18 at 06:00 Allopurinol (Zyloprim) 100 mg DAILY PO Last administered on 09/21/18 08:16; Admin Dose 100 MG; Start 09/12/18 at 09:00 Aspirin (Halfprin) 81 mg DAILY PO Last administered on 09/21/18 08:18; Admin Dose 81 MG; Start 09/12/18 at 09:00 Atorvastatin Calcium (Lipitor) 20 mg QHS PO Last administered on 09/20/18 21:23; Admin Dose 20 MG; Start 09/11/18 at 21:00 Carvedilol (Coreg) 25 mg BID PO Last administered on 09/21/18 08:17; Admin Dose 25 MG; Start 09/11/18 at 21:00 Hydralazine HCl (Apresoline) 50 mg Q8 PO Last administered on 09/21/18 06:36; Admin Dose 50 MG; Start 09/11/18 at 22:00 Isosorbide Mononitrate (Imdur) 60 mg DAILY PO Last administered on 09/21/18 08:16; Admin Dose 60 MG; Start 09/12/18 at 09:00 Latanoprost (Xalatan) 1 drop QHS BOTH EYES Last administered on 09/20/18 21:24; Admin Dose 1 DROP; Start 09/11/18 at 21:00 Levothyroxine Sodium (Synthroid) 75 mcg BEFORE BREAKFAST PO Last administered on 09/21/18 06:36; Admin Dose 75 MCG; Start 09/12/18 at 07:00 Ticagrelor (Brilinta) 90 mg Q12 PO Last administered on 09/21/18 08:22; Admin Dose 90 MG; Start 09/11/18 at 21:00 Diagnostic Test (Pha) (Accu-Chek) 1 ea AC MEALS AND BEDTIME XX Last administered on 09/21/18 11:03; Admin Dose 1 EA; Start 09/11/18 at 17:25 Albuterol/ Ipratropium (Duoneb) 3 ml Q4H RESP THERAPY HHN Last administered on 09/21/18 13:04; Admin Dose 3 ML; Start 09/11/18 at 17:00 Guaifenesin/ Dextromethorphan (Robitussin Dm Liquid Cup) 10 ml Q4H PRN PO COUGH Last administered on 09/20/18 21:49; Admin Dose 10 ML; Start 09/14/18 at 10:30 Heparin Sodium (Porcine) (Heparin (5000 Units/1ml)) 5,000 unit BID SC Last administered on 09/21/18 08:22; Admin Dose 5,000 UNIT; Start 09/15/18 at 21:00 Megestrol Acetate (Megace Susp) 400 mg BID PO Last administered on 09/21/18 08:16; Admin Dose 400 MG; Start 09/16/18 at 14:00 Diagnostic Test (Pha) (Accu-Chek) 1 ea 02 XX Last administered on 09/20/18 02:00; Admin Dose 1 EA; Start 09/20/18 at 02:00 Insulin Aspart (Novolog Insulin Pen) NOVOLOG *MILD* ALGORITHM WITH MEALS BEDTIME SC Last administered on 09/21/18 11:08; Admin Dose 3 UNIT; Start 09/19/18 at 13:30 Miscellaneous Information 1 ea NOTE XX ; Start 09/19/18 at 13:30 Glucose (Glutose) 15 gm Q15M PRN PO DECREASED GLUCOSE; Start 09/19/18 at 13:30 Glucose (Glutose) 22.5 gm Q15M PRN PO DECREASED GLUCOSE; Start 09/19/18 at 13:30 Dextrose (D50w Syringe) 25 ml Q15M PRN IV DECREASED GLUCOSE; Start 09/19/18 at 13:30 Dextrose (D50w Syringe) 50 ml Q15M PRN IV DECREASED GLUCOSE; Start 09/19/18 at 13:30 Glucagon (Glucagen) 1 mg Q15M PRN IM DECREASED GLUCOSE; Start 09/19/18 at 13:30 Glucose (Glutose) 15 gm Q15M PRN BUCCAL DECREASED GLUCOSE; Start 09/19/18 at 13:30 Sodium Chloride 1,000 ml @ 30 mls/hr Q24H IV Last administered on 09/21/18at 11:04; Admin Dose 30 MLS/HR; Start 09/21/18 at 10:30 DOMONIQUE ANGELO NP Sep 21, 2018 13:22
--- NOTE | 2018-09-21 17:51 | CONS ---
Assessment/Plan Assessment/Plan Hospital Course (Demo Recall) IMPRESSION: 1. Congestive heart failure exacerbation, systolic, acute on chronic.-neg trop x 3. Now s/p lexiscan with mainly scar. No sig ischemia by read. EF 29% 2. Cardiomyopathy with decreased left ventricular ejection fraction, last known to be approximately 30% by echo in 04/2018. 25% by echo this admit 3. History of PTCA and stent placement, most recently to right coronary artery and left main in 06/2017. 4. History of transcatheter aortic valve replacement or TAVR in 10/2017.-proper function by echo this admit 5. Hypertension. 6. Dyslipidemia. 7. Chronic kidney disease, not on hemodialysis. 8. Shortness of breath secondary to #1. 9. Fevers 10. nodules-per pulmonology to high risk for Bx?? PLan: -Tele -Continue asa/brilinta -Continue coreg/hydralazine/imdur with well controlled BP -Lasix again held in the setting of acute on chronic renal failure, Follow volume status and creatnine closely which is appropriately downtrending. Possible d/c soon on low dose lasix -Continue abx's and f/u cx data -will discuss with nephrology Consultation Date/Type/Reason Admit Date/Time Sep 12, 2018 at 09:28 Initial Consult Date 09/13/18 Type of Consult Cardiology Reason for Consultation CHF Requesting Provider: MERT BENITEZ MD Date/Time of Note DATE: 09/21/18 TIME: 17:49 Exam/Review of Systems Vital Signs Vitals Vital Signs Date Temp Pulse Resp B/P (MAP) Pulse Ox O2 O2 Flow FiO2 Time Delivery Rate 09/21/18 61 16:32 09/21/18 98.7 18 109/61 96 Room Air 15:15 (77) 09/21/18 21 13:05 09/20/18 2.0 23:10 Intake and Output 09/20/18 09/20/18 09/21/18 1515:00 23:00 07:00 IntakeIntake Total 400 ml OutputOutput Total 850 ml BalanceBalance -450 ml Exam Exam Review of Systems: CONSTITUTIONAL: No fevers, chills. PULMONARY: No sob CARDIOVASCULAR: No chest pain/palpitations GASTROINTESTINAL: No nausea/vomiting. GENITOURINARY: No hematuria/dysuria. MUSCULOSKELETAL: No myagias/arthalgias. PSYCHIATRIC: The patient denies depression. NEUROLOGIC: No weakness Constitutional: alert, oriented Psych: no complaints Head: normocephalic ENMT: mucosa pink and moist Neck: supple, jvd (9 cm water) Respiratory: clear to auscultation Cardiovascular: regular rate and rhythm Gastrointestinal: soft, non-tender Musculoskeletal: muscle tone (normal) Extremities: edema (none) Neurological: other (No focal deficits) Labs Result Diagram: 09/20/18 0729 09/21/18 0739 Results 24hrs Laboratory Tests Test 09/20/18 20:48 09/21/18 07:27 09/21/18 07:39 09/21/18 11:02 Bedside Glucose 187 137 230 H Sodium Level 142 Potassium Level 4.5 Chloride Level 106 Carbon Dioxide Level 24 Anion Gap 12 Blood Urea Nitrogen 92 H Creatinine 2.39 H Est Glomerular Filtrat Rate mL/min Glucose Level 133 Calcium Level 9.8 Test 09/21/18 17:23 Bedside Glucose 158 Medications Medications Current Medications IV Flush (NS 3 ml) 3 ml PER PROTOCOL IV ; Start 09/11/18 at 15:00 Ondansetron HCl (Zofran Inj) 4 mg Q6H PRN IV NAUSEA/VOMITING Last administered on 09/18/18at 09:25; Admin Dose 4 MG; Start 09/11/18 at 15:00 Acetaminophen (Tylenol Tab) 650 mg Q6H PRN PO .PAIN 1-3 OR TEMP Last administered on 09/16/18at 11:44; Admin Dose 650 MG; Start 09/11/18 at 15:00 Acetaminophen/ Hydrocodone Bitart ([place] (5/325)) 1 tab Q6H PRN PO .MOD PAIN 4- 6; Start 09/11/18 at 15:00 Docusate Sodium (Colace) 100 mg Q12H PRN PO .CONSTIPATION; Start 09/11/18 at 15:00 Pantoprazole (Protonix Tab) 40 mg DAILY@06 PO Last administered on 09/21/18at 06:36; Admin Dose 40 MG; Start 09/12/18 at 06:00 Allopurinol (Zyloprim) 100 mg DAILY PO Last administered on 09/21/18at 08:16; Admin Dose 100 MG; Start 09/12/18 at 09:00 Aspirin (Halfprin) 81 mg DAILY PO Last administered on 09/21/18 08:18; Admin Dose 81 MG; Start 09/12/18 at 09:00 Atorvastatin Calcium (Lipitor) 20 mg QHS PO Last administered on 09/20/18 21:23; Admin Dose 20 MG; Start 09/11/18 at 21:00 Carvedilol (Coreg) 25 mg BID PO Last administered on 09/21/18 08:17; Admin Dose 25 MG; Start 09/11/18 at 21:00 Hydralazine HCl (Apresoline) 50 mg Q8 PO Last administered on 09/21/18 06:36; Admin Dose 50 MG; Start 09/11/18 at 22:00 Isosorbide Mononitrate (Imdur) 60 mg DAILY PO Last administered on 09/21/18 08:16; Admin Dose 60 MG; Start 09/12/18 at 09:00 Latanoprost (Xalatan) 1 drop QHS BOTH EYES Last administered on 09/20/18 21:24; Admin Dose 1 DROP; Start 09/11/18 at 21:00 Levothyroxine Sodium (Synthroid) 75 mcg BEFORE BREAKFAST PO Last administered on 09/21/18 06:36; Admin Dose 75 MCG; Start 09/12/18 at 07:00 Ticagrelor (Brilinta) 90 mg Q12 PO Last administered on 09/21/18 08:22; Admin Dose 90 MG; Start 09/11/18 at 21:00 Diagnostic Test (Pha) (Accu-Chek) 1 ea AC MEALS AND BEDTIME XX Last administered on 09/21/18 17:23; Admin Dose 1 EA; Start 09/11/18 at 17:25 Albuterol/ Ipratropium (Duoneb) 3 ml Q4H RESP THERAPY HHN Last administered on 09/21/18 13:04; Admin Dose 3 ML; Start 09/11/18 at 17:00 Guaifenesin/ Dextromethorphan (Robitussin Dm Liquid Cup) 10 ml Q4H PRN PO COUGH Last administered on 09/20/18 21:49; Admin Dose 10 ML; Start 09/14/18 at 10:30 Heparin Sodium (Porcine) (Heparin (5000 Units/1ml)) 5,000 unit BID SC Last administered on 09/21/18 08:22; Admin Dose 5,000 UNIT; Start 09/15/18 at 21:00 Megestrol Acetate (Megace Susp) 400 mg BID PO Last administered on 09/21/18 08:16; Admin Dose 400 MG; Start 09/16/18 at 14:00 Diagnostic Test (Pha) (Accu-Chek) 1 ea 02 XX Last administered on 09/20/18at 02:00; Admin Dose 1 EA; Start 09/20/18 at 02:00 Insulin Aspart (Novolog Insulin Pen) NOVOLOG *MILD* ALGORITHM WITH MEALS BEDTIME SC Last administered on 09/21/18 17:29; Admin Dose 1 UNIT; Start 09/19/18 at 13:30 Miscellaneous Information 1 ea NOTE XX ; Start 09/19/18 at 13:30 Glucose (Glutose) 15 gm Q15M PRN PO DECREASED GLUCOSE; Start 09/19/18 at 13:30 Glucose (Glutose) 22.5 gm Q15M PRN PO DECREASED GLUCOSE; Start 09/19/18 at 13:30 Dextrose (D50w Syringe) 25 ml Q15M PRN IV DECREASED GLUCOSE; Start 09/19/18 at 13:30 Dextrose (D50w Syringe) 50 ml Q15M PRN IV DECREASED GLUCOSE; Start 09/19/18 at 13:30 Glucagon (Glucagen) 1 mg Q15M PRN IM DECREASED GLUCOSE; Start 09/19/18 at 13:30 Glucose (Glutose) 15 gm Q15M PRN BUCCAL DECREASED GLUCOSE; Start 09/19/18 at 13:30 Sodium Chloride 1,000 ml @ 30 mls/hr Q24H IV Last administered on 09/21/18at 11:04; Admin Dose 30 MLS/HR; Start 09/21/18 at 10:30 ELEANOR ROLDAN Sep 21, 2018 17:51
[2018-09-21] MEDS: ATORVASTATIN 20 MG TAB PO SCH (21:51)
[2018-09-21] MEDS: GUAIFENESIN/DM 5ML CUP PO PRN (22:13)
[2018-09-22] VITALS (9 sets, daily range): BP systolic 103–122; BP diastolic 53–60; PULSE 64–77; RESP 16–18
[2018-09-22] MEDS: LATANOPROST 0.005% 2.5 ML OPH BOTH EYES SCH (00:30)
[2018-09-22] MEDS: ALBUTEROL/IPRATROPIUM (NEB) 3 ML AMP HHN SCH ×5 (01:00→16:35)
[2018-09-22] MEDS: ACCU-CHEK XX SCH ×3 (01:39→12:04)
[2018-09-22] MEDS: PANTOPRAZOLE (EC) 40 MG TAB PO SCH (05:53)
[2018-09-22] MEDS: LEVOTHYROXINE 75 MCG TAB PO SCH (06:00)
[2018-09-22] MEDS: INSULIN ASPART [NOVOLOG] 3 ML PEN SC SCH ×2 (07:55→12:55)
[2018-09-22] MEDS: ASPIRIN (EC) 81 MG TAB PO SCH (08:37)
[2018-09-22] MEDS: MEGESTROL (40 MG/ML) 10ML CUP PO SCH (08:37)
[2018-09-22] MEDS: ALLOPURINOL 100 MG TAB PO SCH (08:37)
[2018-09-22] MEDS: ISOSORBIDE MONONITRATE(SR)60 MG TAB PO SCH (08:38)
[2018-09-22] MEDS: HEPARIN 5,000 UNIT/1 ML VIAL SC SCH (08:39)
[2018-09-22] MEDS: TICAGRELOR 90 MG TABLET PO SCH (08:39)
--- NOTE | 2018-09-22 09:52 | PDOCDIS ---
Discharge Instructions DIAGNOSIS Discharge Diagnosis chf KEN on CKD Bronchitis CONDITION [id number] Patient Condition: [id number] Fair HOME CARE INSTRUCTIONS: [id number] Diet Instructions: [id number] Low Fat /Cholesterol ACTIVITY: [id number] Activity Restrictions: [id number] Slowly Increase Activity Rest between Activity Avoid heavy lifting FOLLOW UP/APPOINTMENTS Follow-up Plan f/u Dr Pederson in 1 week get labs before done f/u Dr ROLDAN in 2-3 weeks f/u PCP IN 2-3 WEEKS MERT PEDERSON MD Sep 22, 2018 09:52
[2018-09-22] MEDS ORDERED: ALBU8.5H8 INH (09:53)
[2018-09-22] MEDS ORDERED: IPRA3AMP29 HHN (09:53)
[2018-09-22] MEDS ORDERED: GUAI120S26 PO (09:53)
[2018-09-22] MEDS: SOD CHLORIDE 0.45% 1,000 ML IV SCH (10:30)
[2018-09-22] MEDS: GUAIFENESIN/DM 5ML CUP PO PRN (13:16)
--- NOTE | 2018-09-22 14:59 | CONS ---
Assessment/Plan Assessment/Plan Hospital Course (Demo Recall) All noted, no acute events MRSA swab negative Physical examination: This is a well-developed obese elderly man who is alert in no distress. Head atraumatic normocephalic sclera nonicteric. Neck is supple. Chest rise symmetrical breath sounds diminished bases. Heart: S1-S2. Abdomen soft bowel sounds present. Extremities without cyanosis Assessment: 1. Acute hypoxemia on admission 2. Possible pneumonia==> treated 3. Cardiomyopathy with CHF exacerbation 4. Acute possibly on chronic kidney disease 5. Coronary artery disease with a history of aortic valve replacement 6. Diabetes 7. Hypertension Plan: Stable, off antibiotics, +QTB==> no treatment required, f/u card/pulmonary rec-s Consultation Date/Type/Reason Admit Date/Time Sep 12, 2018 at 09:28 Initial Consult Date 09/13/18 Type of Consult id Requesting Provider: MERT BENITEZ MD Date/Time of Note DATE: 09/22/18 TIME: 14:59 Exam/Review of Systems Exam Vitals Vital Signs Date Temp Pulse Resp B/P (MAP) Pulse Ox O2 O2 Flow FiO2 Time Delivery Rate 09/22/18 70 20 94 21 12:21 09/22/18 97.8 115/59 Room Air 11:26 (77) 09/21/18 2.0 22:00 Intake and Output 09/21/18 09/21/18 09/22/18 1515:00 23:00 07:00 IntakeIntake Total 480 ml 800 ml OutputOutput Total 200 ml BalanceBalance 480 ml 600 ml Results Result Diagram: 09/20/18 0729 09/22/18 0556 Results 24hrs Laboratory Tests Test 09/21/18 17:23 09/21/18 22:00 09/22/18 01:38 09/22/18 05:56 Bedside Glucose 158 226 H 186 Sodium Level 144 Potassium Level 4.4 Chloride Level 111 H Carbon Dioxide Level 20 L Anion Gap 13 Blood Urea Nitrogen 93 H Creatinine 2.20 H Est Glomerular Filtrat Rate mL/min Glucose Level 133 Calcium Level 9.8 Test 09/22/18 12:01 Bedside Glucose 288 H Medications Medication Current Medications IV Flush (NS 3 ml) 3 ml PER PROTOCOL IV ; Start 09/11/18 at 15:00 Ondansetron HCl (Zofran Inj) 4 mg Q6H PRN IV NAUSEA/VOMITING Last administered on 09/18/18 09:25; Admin Dose 4 MG; Start 09/11/18 at 15:00 Acetaminophen (Tylenol Tab) 650 mg Q6H PRN PO .PAIN 1-3 OR TEMP Last administered on 09/16/18 11:44; Admin Dose 650 MG; Start 09/11/18 at 15:00 Acetaminophen/ Hydrocodone Bitart ([place] (5/325)) 1 tab Q6H PRN PO .MOD PAIN 4- 6; Start 09/11/18 at 15:00 Docusate Sodium (Colace) 100 mg Q12H PRN PO .CONSTIPATION; Start 09/11/18 at 15:00 Pantoprazole (Protonix Tab) 40 mg DAILY@06 PO Last administered on 09/22/18 05:53; Admin Dose 40 MG; Start 09/12/18 at 06:00 Allopurinol (Zyloprim) 100 mg DAILY PO Last administered on 09/22/18 08:37; Admin Dose 100 MG; Start 09/12/18 at 09:00 Aspirin (Halfprin) 81 mg DAILY PO Last administered on 09/22/18 08:37; Admin Dose 81 MG; Start 09/12/18 at 09:00 Atorvastatin Calcium (Lipitor) 20 mg QHS PO Last administered on 09/21/18 21:51; Admin Dose 20 MG; Start 09/11/18 at 21:00 Carvedilol (Coreg) 25 mg BID PO Last administered on 09/22/18 08:38; Admin Dose 25 MG; Start 09/11/18 at 21:00 Hydralazine HCl (Apresoline) 50 mg Q8 PO Last administered on 09/22/18 13:16; Admin Dose 50 MG; Start 09/11/18 at 22:00 Isosorbide Mononitrate (Imdur) 60 mg DAILY PO Last administered on 09/22/18 08:38; Admin Dose 60 MG; Start 09/12/18 at 09:00 Latanoprost (Xalatan) 1 drop QHS BOTH EYES Last administered on 09/22/18 00:30; Admin Dose 1 DROP; Start 09/11/18 at 21:00 Levothyroxine Sodium (Synthroid) 75 mcg BEFORE BREAKFAST PO Last administered on 09/22/18 06:00; Admin Dose 75 MCG; Start 09/12/18 at 07:00 Ticagrelor (Brilinta) 90 mg Q12 PO Last administered on 09/22/18 08:39; Admin Dose 90 MG; Start 09/11/18 at 21:00 Diagnostic Test (Pha) (Accu-Chek) 1 ea AC MEALS AND BEDTIME XX Last administered on 09/22/18 12:04; Admin Dose 1 EA; Start 09/11/18 at 17:25 Albuterol/ Ipratropium (Duoneb) 3 ml Q4H RESP THERAPY HHN Last administered on 09/22/18 12:21; Admin Dose 3 ML; Start 09/11/18 at 17:00 Guaifenesin/ Dextromethorphan (Robitussin Dm Liquid Cup) 10 ml Q4H PRN PO COUGH Last administered on 09/22/18 13:16; Admin Dose 10 ML; Start 09/14/18 at 10:30 Heparin Sodium (Porcine) (Heparin (5000 Units/1ml)) 5,000 unit BID SC Last administered on 09/22/18 08:39; Admin Dose 5,000 UNIT; Start 09/15/18 at 21:00 Megestrol Acetate (Megace Susp) 400 mg BID PO Last administered on 09/22/18 08:37; Admin Dose 400 MG; Start 09/16/18 at 14:00 Diagnostic Test (Pha) (Accu-Chek) 1 ea 02 XX Last administered on 09/22/18 01:39; Admin Dose 1 EA; Start 09/20/18 at 02:00 Insulin Aspart (Novolog Insulin Pen) NOVOLOG *MILD* ALGORITHM WITH MEALS BEDTIME SC Last administered on 09/22/18 12:55; Admin Dose 4 UNIT; Start 09/19/18 at 13:30 Miscellaneous Information 1 ea NOTE XX ; Start 09/19/18 at 13:30 Glucose (Glutose) 15 gm Q15M PRN PO DECREASED GLUCOSE; Start 09/19/18 at 13:30 Glucose (Glutose) 22.5 gm Q15M PRN PO DECREASED GLUCOSE; Start 09/19/18 at 13:30 Dextrose (D50w Syringe) 25 ml Q15M PRN IV DECREASED GLUCOSE; Start 09/19/18 at 13:30 Dextrose (D50w Syringe) 50 ml Q15M PRN IV DECREASED GLUCOSE; Start 09/19/18 at 13:30 Glucagon (Glucagen) 1 mg Q15M PRN IM DECREASED GLUCOSE; Start 09/19/18 at 13:30 Glucose (Glutose) 15 gm Q15M PRN BUCCAL DECREASED GLUCOSE; Start 09/19/18 at 13:30 Sodium Chloride 1,000 ml @ 30 mls/hr Q24H IV Last administered on 09/21/18at 11 :04; Admin Dose 30 MLS/HR; Start 09/21/18 at 10:30 DOMONIQUE ANGELO NP Sep 22, 2018 14:59
--- NOTE | 2018-09-22 15:13 | CONS ---
Assessment/Plan Assessment/Plan Hospital Course (Demo Recall) IMPRESSION: 1. Congestive heart failure exacerbation, systolic, acute on chronic.-neg trop x 3. Now s/p lexiscan with mainly scar. No sig ischemia by read. EF 29% 2. Cardiomyopathy with decreased left ventricular ejection fraction, last known to be approximately 30% by echo in 04/2018. 25% by echo this admit 3. History of PTCA and stent placement, most recently to right coronary artery and left main in 06/2017. 4. History of transcatheter aortic valve replacement or TAVR in 10/2017.-proper function by echo this admit 5. Hypertension. 6. Dyslipidemia. 7. Chronic kidney disease, not on hemodialysis. 8. Shortness of breath secondary to #1. 9. Fevers 10. nodules-per pulmonology to high risk for Bx?? PLan: -Tele -Continue asa/brilinta -Continue coreg/hydralazine/imdur with well controlled BP -Continue abx's and f/u cx data -Following creatnine closely with probable d/c today . ? if will be on lasix at d/c Consultation Date/Type/Reason Admit Date/Time Sep 12, 2018 at 09:28 Initial Consult Date 09/13/18 Type of Consult Cardiology Reason for Consultation CHF Requesting Provider: MERT BENITEZ MD Date/Time of Note DATE: 09/22/18 TIME: 15:10 Exam/Review of Systems Vital Signs Vitals Vital Signs Date Temp Pulse Resp B/P (MAP) Pulse Ox O2 O2 Flow FiO2 Time Delivery Rate 09/22/18 70 20 94 21 12:21 09/22/18 97.8 115/59 Room Air 11:26 (77) 09/21/18 2.0 22:00 Intake and Output 09/21/18 09/21/18 09/22/18 1515:00 23:00 07:00 IntakeIntake Total 480 ml 800 ml OutputOutput Total 200 ml BalanceBalance 480 ml 600 ml Exam Exam Review of Systems: CONSTITUTIONAL: No fevers, chills. PULMONARY: No sob CARDIOVASCULAR: No chest pain/palpitations GASTROINTESTINAL: No nausea/vomiting. GENITOURINARY: No hematuria/dysuria. MUSCULOSKELETAL: No myagias/arthalgias. PSYCHIATRIC: The patient denies depression. NEUROLOGIC: No weakness Constitutional: alert Psych: no complaints Head: normocephalic ENMT: mucosa pink and moist Neck: supple, jvd (9 cm water) Respiratory: diminished breath sounds Cardiovascular: regular rate and rhythm Gastrointestinal: soft, non-tender Musculoskeletal: muscle tone (normal) Extremities: edema (none) Neurological: other (no focal deficits) Labs Result Diagram: 09/20/18 0729 09/22/18 0556 Results 24hrs Laboratory Tests Test 09/21/18 17:23 09/21/18 22:00 09/22/18 01:38 09/22/18 05:56 Bedside Glucose 158 226 H 186 Sodium Level 144 Potassium Level 4.4 Chloride Level 111 H Carbon Dioxide Level 20 L Anion Gap 13 Blood Urea Nitrogen 93 H Creatinine 2.20 H Est Glomerular Filtrat Rate mL/min Glucose Level 133 Calcium Level 9.8 Test 09/22/18 12:01 Bedside Glucose 288 H Medications Medications Current Medications IV Flush (NS 3 ml) 3 ml PER PROTOCOL IV ; Start 09/11/18 at 15:00 Ondansetron HCl (Zofran Inj) 4 mg Q6H PRN IV NAUSEA/VOMITING Last administered on 09/18/18 09:25; Admin Dose 4 MG; Start 09/11/18 at 15:00 Acetaminophen (Tylenol Tab) 650 mg Q6H PRN PO .PAIN 1-3 OR TEMP Last administered on 09/16/18at 11:44; Admin Dose 650 MG; Start 09/11/18 at 15:00 Acetaminophen/ Hydrocodone Bitart ([place] (5/325)) 1 tab Q6H PRN PO .MOD PAIN 4- 6; Start 09/11/18 at 15:00 Docusate Sodium (Colace) 100 mg Q12H PRN PO .CONSTIPATION; Start 09/11/18 at 15:00 Pantoprazole (Protonix Tab) 40 mg DAILY@06 PO Last administered on 09/22/18 05:53; Admin Dose 40 MG; Start 09/12/18 at 06:00 Allopurinol (Zyloprim) 100 mg DAILY PO Last administered on 09/22/18 08:37; Admin Dose 100 MG; Start 09/12/18 at 09:00 Aspirin (Halfprin) 81 mg DAILY PO Last administered on 09/22/18 08:37; Admin Dose 81 MG; Start 09/12/18 at 09:00 Atorvastatin Calcium (Lipitor) 20 mg QHS PO Last administered on 09/21/18 21:51; Admin Dose 20 MG; Start 09/11/18 at 21:00 Carvedilol (Coreg) 25 mg BID PO Last administered on 09/22/18 08:38; Admin Dose 25 MG; Start 09/11/18 at 21:00 Hydralazine HCl (Apresoline) 50 mg Q8 PO Last administered on 09/22/18 13:16; Admin Dose 50 MG; Start 09/11/18 at 22:00 Isosorbide Mononitrate (Imdur) 60 mg DAILY PO Last administered on 09/22/18 08:38; Admin Dose 60 MG; Start 09/12/18 at 09:00 Latanoprost (Xalatan) 1 drop QHS BOTH EYES Last administered on 09/22/18 00:30; Admin Dose 1 DROP; Start 09/11/18 at 21:00 Levothyroxine Sodium (Synthroid) 75 mcg BEFORE BREAKFAST PO Last administered on 09/22/18 06:00; Admin Dose 75 MCG; Start 09/12/18 at 07:00 Ticagrelor (Brilinta) 90 mg Q12 PO Last administered on 09/22/18 08:39; Admin Dose 90 MG; Start 09/11/18 at 21:00 Diagnostic Test (Pha) (Accu-Chek) 1 ea AC MEALS AND BEDTIME XX Last administered on 09/22/18 12:04; Admin Dose 1 EA; Start 09/11/18 at 17:25 Albuterol/ Ipratropium (Duoneb) 3 ml Q4H RESP THERAPY HHN Last administered on 09/22/18 12:21; Admin Dose 3 ML; Start 09/11/18 at 17:00 Guaifenesin/ Dextromethorphan (Robitussin Dm Liquid Cup) 10 ml Q4H PRN PO COUGH Last administered on 09/22/18 13:16; Admin Dose 10 ML; Start 09/14/18 at 10:30 Heparin Sodium (Porcine) (Heparin (5000 Units/1ml)) 5,000 unit BID SC Last administered on 09/22/18 08:39; Admin Dose 5,000 UNIT; Start 09/15/18 at 21:00 Megestrol Acetate (Megace Susp) 400 mg BID PO Last administered on 09/22/18at 08:37; Admin Dose 400 MG; Start 09/16/18 at 14:00 Diagnostic Test (Pha) (Accu-Chek) 1 ea 02 XX Last administered on 09/22/18at 01:39; Admin Dose 1 EA; Start 09/20/18 at 02:00 Insulin Aspart (Novolog Insulin Pen) NOVOLOG *MILD* ALGORITHM WITH MEALS BEDTIME SC Last administered on 09/22/18at 12:55; Admin Dose 4 UNIT; Start 09/19/18 at 13:30 Miscellaneous Information 1 ea NOTE XX ; Start 09/19/18 at 13:30 Glucose (Glutose) 15 gm Q15M PRN PO DECREASED GLUCOSE; Start 09/19/18 at 13:30 Glucose (Glutose) 22.5 gm Q15M PRN PO DECREASED GLUCOSE; Start 09/19/18 at 13:30 Dextrose (D50w Syringe) 25 ml Q15M PRN IV DECREASED GLUCOSE; Start 09/19/18 at 13:30 Dextrose (D50w Syringe) 50 ml Q15M PRN IV DECREASED GLUCOSE; Start 09/19/18 at 13:30 Glucagon (Glucagen) 1 mg Q15M PRN IM DECREASED GLUCOSE; Start 09/19/18 at 13:30 Glucose (Glutose) 15 gm Q15M PRN BUCCAL DECREASED GLUCOSE; Start 09/19/18 at 13:30 Sodium Chloride 1,000 ml @ 30 mls/hr Q24H IV Last administered on 09/21/18at 11:04; Admin Dose 30 MLS/HR; Start 09/21/18 at 10:30 ELEANOR ROLDAN Sep 22, 2018 15:13
--- NOTE | 2018-09-23 05:23 | DS ---
DATE OF ADMISSION: 09/12/2018 DATE OF DISCHARGE: 09/22/2018 HISTORY OF PRESENT ILLNESS COURSE: An 83-year-old male with past medical history of diabetes, hypert ension, congestive heart failure, systolic, acute on chronic cardiomyopathy, EF of 25%, history of pe rcutaneous angioplasty, dyslipidemia, hypothyroidism, multiple admissions in the past, [facility] department complaining of shortness of breath. The patient was seen in the office last week. The patient was having some mild exertion, shortness of breath, could not breathe, made him co me to the emergency department. On arrival, temperature was 99.7, blood pressure 134/73. White coun t 7.7, hemoglobin 9.3, BUN of 28, [place] [address]. Chest x-ray shows increased vascul ar congestion, perihilar density secondary to interstitial edema. The patient was given IV Lasix and was admitted for further management. The patient was admitted to the telemetry floor. The patient was also thought to have underlying bronchitis, was started on DuoNeb. ABG was also done that showed pH of 7.4, pCO2 33, bicarbonate of 22, pO2 of 89. UA was done that was negative. SUMANTH was done that was negative. The patient was seen by pulmonary consultation and also had a CT of the chest that sh owed numerous nodular opacities throughout both lungs, representing multifocal pneumonia such as sept ic emboli. Metastatic disease cannot be excluded for interlobular septal thickening from the splenic artery, pulmonary edema. The patient was also started on Lasix and metolazone according to Dr. Parveen frazier' recommendations. The patient's creatinine went up to 3.04. Diuretics had been held. Blood cul tures were negative. The patient was seen by ID consultation for these were not the opacities and al so pulmonary consultation. Nodule on the CT chest represent pulmonary edema, significant improvement on the chest x-ray. The patient was continued on IV antibiotics per ID, Rocephin and azithromycin. 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 The mary ent's echo also showed an ejection fraction of 25%. Case was discussed with Dr. Flores, but however , the patient's kidney functions were worse if were to get an angiogram. The patient will end up orestes ng on dialysis. The patient adamantly refused to be on dialysis. The patient was also seen by Dr. Rey joy who felt that this is infectious in nature. I recommended no further intervention. The mary ent's condition was slowly improving every day. Recommended repeat CT scan in few weeks after comple tion of therapy. Creatinine was slowly coming down, came down to 2.20, BUN was, however, elevated up to 90s. However, the patient does not have any signs and symptoms of uremia. The patient will be d ischarged home today with p.o. Lasix 40 and will follow up in my office in 1 week with the lab check before. FINAL DISCHARGE DIAGNOSES: 1. Congestive heart failure exacerbation, systolic, acute on chronic, now status post Lexiscan, whic h was mainly scar. No significant ischemia. EF was 29%. 2. Shortness of breath secondary to congestive heart failure/multifocal pneumonia. CT of the chest shows numerous nodular consolidative opacities, improvement in both the lungs. Chest x-ray shows muc h improvement. 3. Chronic kidney disease, acute on chronic, with creatinine peaked up to 3, was 2.23 on discharge. However, has significant uremia, 93. He does not have any signs and symptoms of uremia. 4. Elevated BNP due to congestive heart failure. 5. Diabetes. 6. Hypertension. 7. Hyperlipidemia. 8. Cardiomyopathy. 9. History of transaortic valve placement. 10. History of acute on chronic bronchitis. 11. Chronic anemia. DISCHARGE CONDITION: Stable. DISCHARGE DIET: Two-gram sodium, renal diet. DISCHARGE MEDICATIONS: 1. Nebulizer guanfacine p.o. p.r.n. cough. Continue with home medication. 2. ProAir. 3. Albuterol 100. 4. Aspirin 81. 5. Atorvastatin 20. 6. Coreg 25 b.i.d. 7. Lasix 40. 8. Hydralazine 50 q.8 hours. 9. Imdur 60. 10. Latanoprost. 11. Levothyroxine 75. 12. Nateglinide 180. 13. Januvia 50. 14. Brilinta 90 q.12h. DISCHARGE INSTRUCTIONS: The patient will be followed in my clinic in 1 week with a lab check. Meli w up with Dr. Flores in 1 to 2 weeks. Dictated By: MERT JOHNSTON/ELIZABETH Conf#: [id number] [facility]#: [id number] CC: MERT BENITEZ; ELEANOR FLORES MD;*[facility]*
== END 2018-09-22 17:18 | disposition home or self-care (01) | DRG 291 ==
LOC: E/R 08:50 → TEL 11:37 → OBSVTOIN 09-12 09:28 → TEL 09-14 18:30
PROVIDERS: ADMIT Internal Medicine; ATTEND Internal Medicine
DX: I13.0 Hypertensive heart and chronic kidney disease with heart failure and stage 1 through stage 4 chronic kidney disease, or unspecified chronic kidney disease (principal); I50.23 Acute on chronic systolic (congestive) heart failure; J18.9 Pneumonia, unspecified organism; N17.9 Acute kidney failure, unspecified; N18.3 Chronic kidney disease, stage 3 (moderate); E11.22 Type 2 diabetes mellitus with diabetic chronic kidney disease; I42.9 Cardiomyopathy, unspecified; D63.1 Anemia in chronic kidney disease; E78.5 Hyperlipidemia, unspecified; M10.9 Gout, unspecified; E03.9 Hypothyroidism, unspecified; Z95.5 Presence of coronary angioplasty implant and graft; Z95.2 Presence of prosthetic heart valve; Z95.810 Presence of automatic (implantable) cardiac defibrillator
CPT/HCPCS: 36415; 36600; 71045; 71250; 78452; 78582; 80048; 80053; 81003; 82378; 82550; 82553; 82803; 82962; 83036; 83735; 83880; 84100; 84153; 84154; 84484; 85025; 86038; 86300; 86301; 86480; 86635; 87081; 93005; 93017; 93306; 94640; 94664; 96374; G0378; A9500; A9505; A9540; J0456; J0696; J1644; J1815; J1940; J2405; J2785; J7050